=== PATIENT | male | born 1950 | race Two or more races ===

== ENCOUNTER 2017-09-18 22:54 | Inpatient (IN) | payer MEDICARE, OTHER ==
[~2017-09-18 22:54] MED LIST: ACID1TAB12 PO; ALBU2.5V38 NEB; ASPI-1169 GT; BISA-79 GT; Blood Sugar Diagnostic IN; CRAN1CAP10 GT; FENO145T45 GT; INSU100V10 SQ; MAGN400O21 PO; METO25TA6 GT; METO5TAB87 GT; MINE3.5O EACHEYE; NA P133E4 RC; NUT.100029 GT; PRAV40TA GT
[2017-09-18] MEDS ORDERED: IV NS 0.9% 1,000 ML BAG IV ONE (23:00)
[2017-09-19] MEDS ORDERED: ACETAMINOPHEN 650 MG/SUPP.RECT RC ONE ×2 (00:18)
[2017-09-19] MEDS ORDERED: AZTREONAM 1 G in IV NS 0.9% 100 ML IV ONE (00:30)
[2017-09-19] MEDS ORDERED: LEVOFLOXACIN 750 MG /D5W 150ML PIGGYBACK IV ONE (00:30)
[2017-09-19] MEDS ORDERED: IV NS 0.9% 1,000 ML BAG IV ONE ×2 (00:30→01:00)
[2017-09-19] MEDS ORDERED: IV NS 0.9% 500 ML BAG IV ONE (00:30)
[2017-09-19] MEDS ORDERED: LEVOFLOXACIN 750 MG /D5W 150ML 150 ML IV ONE (00:37)
[2017-09-19] MEDS ORDERED: AZTREONAM 1 G VIAL ONE (00:37)
[2017-09-19] MEDS ORDERED: VANCOMYCIN 1 GM VIAL ONE (01:53)
[2017-09-19] MEDS ORDERED: VANCOMYCIN 1 GM in IV D5W 250 ML IV ONE (02:00)
[2017-09-19] MEDS ORDERED: LEVOFLOXACIN 750 MG /D5W 150ML 150 ML IV SCH (03:00)
[2017-09-19] MEDS: IV NS 0.9% 1,000 ML IV PRN ×2 (03:38→13:09)
[2017-09-19] MEDS ORDERED: GLYTROL 1,000 ML BAG GT PRN (04:30)
[2017-09-19] MEDS ORDERED: PIPERACILLIN /TAZOBACTAM 3.375 G VIAL IV ONE (05:07)
[2017-09-19] MEDS: BLOOD SUGAR DIAGNOSTIC 1 EACH STRIP IN SCH ×4 (06:29→23:36)
[2017-09-19] MEDS: PIPERACILLIN /TAZOBACTAM 3.375 G in IV D5W 50 ML IV SCH ×3 (06:31→17:29)
[2017-09-19] MEDS: INSULIN REGULAR, HUMAN 100 UNIT/ML 3 ML VIAL SQ PRN ×3 (06:45→17:27)
[2017-09-19] MEDS ORDERED: FEE PK DOSING 1 MIN EA MC ONE (08:24)
[2017-09-19] MEDS ORDERED: Z GUARD REMEDY 2 OZ OINT TP PRN (08:30)
[2017-09-19] MEDS ORDERED: METF-440 GT (08:41)
[2017-09-19] MEDS ORDERED: MAGN400O6 GT (08:41)
[2017-09-19] MEDS ORDERED: ATOR10TA GT (08:41)
[2017-09-19] MEDS ORDERED: DOCU50LI GT (08:41)
[2017-09-19] MEDS ORDERED: IPRA0.2S9 IH ×2 (08:41)
[2017-09-19] MEDS ORDERED: ACET160S GT ×2 (08:41)
[2017-09-19] MEDS ORDERED: BISA10SU8 RC (08:41)
[2017-09-19] MEDS ORDERED: ALBU2.5V38 IH (08:41)
[2017-09-19] MEDS ORDERED: SODI100037 GT (08:42)
[2017-09-19] MEDS ORDERED: INSU300I SQ (08:42)
[2017-09-19] MEDS: PANTOPRAZOLE 40 MG VIAL IV SCH (08:58)
[2017-09-19] MEDS: Z GUARD REMEDY 2 OZ OINT TP SCH (08:59)
[2017-09-19] MEDS ORDERED: BISACODYL SUPP (10 MG) 10 MG/SUPP.RECT SUPP.RECT RC PRN (11:00)
[2017-09-19] MEDS ORDERED: ACETAMINOPHEN 650 MG/20.3 ML UDC GT PRN (11:00)
[2017-09-19] MEDS ORDERED: IPRATROPIUM NEB FS 0.5 MG/2.5 ML AMPUL.NEB IH PRN (11:00)
[2017-09-19] MEDS ORDERED: ONDANSETRON HCL/PF 4 MG/2 ML VIAL IV PRN (11:00)
[2017-09-19] MEDS ORDERED: MAGNESIUM HYDROXIDE 30 ML UDC GT PRN (11:00)
[2017-09-19] MEDS ORDERED: NA PHOS,M-B/NA PHOS,DI-BA 1 EA ENEMA RC PRN (11:00)
[2017-09-19] MEDS: CLOTRIMAZOLE 1% 15 GM TUBE TP SCH ×2 (12:25→16:36)
[2017-09-19] MEDS: SODIUM CHLORIDE 1000 MG TABLET.SOL GT SCH ×2 (12:31→16:24)
[2017-09-19] MEDS: METFORMIN 500 MG TABLET GT SCH ×2 (12:31→21:51)
[2017-09-19] MEDS ORDERED: ALBUTEROL FS 2.5 MG/3 ML VIAL.NEB NEB PRN (13:30)
[2017-09-19] MEDS: ALBUTEROL FS 2.5 MG/3 ML VIAL.NEB NEB SCH ×2 (13:39→20:03)
[2017-09-19] MEDS: IPRATROPIUM NEB FS 0.5 MG/2.5 ML AMPUL.NEB IH SCH ×2 (13:39→20:03)
[2017-09-19] MEDS: VANCOMYCIN 0.75 GM in IV D5W 250 ML IV SCH (15:10)
[2017-09-19] MEDS: ACETAMINOPHEN 650 MG/20.3 ML UDC GT PRN (15:15)
[2017-09-19] MEDS: METOPROLOL TARTRATE 25 MG TABLET GT SCH (16:24)
[2017-09-19] MEDS ORDERED: LEVETIRACETAM (500MG) 1,000 MG in IV NS 0.9% 100 ML IV ONE (19:30)
[2017-09-19] MEDS ORDERED: LEVETIRACETAM (500MG) 500 MG in IV NS 0.9% 100 ML IV SCH (21:00)
[2017-09-19] MEDS: ATORVASTATIN 10 MG TABLET GT SCH (21:52)
[2017-09-19] MEDS: LANOLIN/MIN OIL/PETROLAT,WHT 3.5 GM TUBE EACHEYE SCH (22:00)
[2017-09-19] MEDS: LORAZEPAM INJ 2 MG/ML VIAL IV PRN (23:21)
[2017-09-20] MEDS: PIPERACILLIN /TAZOBACTAM 3.375 G in IV D5W 50 ML IV SCH ×5 (00:01→23:41)
[2017-09-20] MEDS: INSULIN REGULAR, HUMAN 100 UNIT/ML 3 ML VIAL SQ PRN ×3 (00:04→17:42)
[2017-09-20] MEDS ORDERED: LEVOFLOXACIN 750 MG /D5W 150ML 150 ML IV SCH (01:00)
[2017-09-20] MEDS: ALBUTEROL FS 2.5 MG/3 ML VIAL.NEB NEB SCH ×5 (01:18→19:51)
[2017-09-20] MEDS: IPRATROPIUM NEB FS 0.5 MG/2.5 ML AMPUL.NEB IH SCH ×4 (01:19→19:51)
[2017-09-20] MEDS: LEVOFLOXACIN 750 MG /D5W 150ML 750 MG in PREMIX 1 EA IV SCH (01:34)
[2017-09-20] MEDS: ACETAMINOPHEN 650 MG/20.3 ML UDC GT PRN (02:41)
[2017-09-20] MEDS: LORAZEPAM INJ 2 MG/ML VIAL IV PRN (03:34)
[2017-09-20] MEDS: VANCOMYCIN 0.75 GM in IV D5W 250 ML IV SCH ×2 (03:43→15:14)
[2017-09-20] MEDS: METFORMIN 500 MG TABLET GT SCH ×3 (05:03→21:13)
[2017-09-20] MEDS: BLOOD SUGAR DIAGNOSTIC 1 EACH STRIP IN SCH ×4 (05:19→23:59)
[2017-09-20] MEDS: IV NS 0.9% 1,000 ML IV PRN (05:42)
[2017-09-20] MEDS: GLYTROL 1,000 ML BAG GT PRN (06:00)
[2017-09-20] MEDS ORDERED: LEVETIRACETAM (500MG) 500 MG in IV NS 0.9% 100 ML IV SCH (09:00)
[2017-09-20] MEDS: DOCUSATE SODIUM LIQ 100 MG/10 ML UDC GT SCH (09:09)
[2017-09-20] MEDS: METOPROLOL TARTRATE 25 MG TABLET GT SCH ×2 (09:09→17:28)
[2017-09-20] MEDS: PANTOPRAZOLE 40 MG VIAL IV SCH (09:09)
[2017-09-20] MEDS: SODIUM CHLORIDE 1000 MG TABLET.SOL GT SCH ×3 (09:09→17:27)
[2017-09-20] MEDS: Z GUARD REMEDY 2 OZ OINT TP SCH (09:10)
[2017-09-20] MEDS: INSULIN GLARGINE, 100 UNIT/ML CARTRIDGE SQ SCH (09:13)
[2017-09-20] MEDS: CLOTRIMAZOLE 1% 15 GM TUBE TP SCH ×2 (09:15→17:28)
[2017-09-20] MEDS ORDERED: VANCOMYCIN 1 GM in IV D5W 250 ML IV SCH (16:00)
[2017-09-20] MEDS: LEVETIRACETAM (500MG) 1,000 MG in IV NS 0.9% 100 ML IV SCH (21:07)
[2017-09-20] MEDS: LANOLIN/MIN OIL/PETROLAT,WHT 3.5 GM TUBE EACHEYE SCH (21:14)
[2017-09-20] MEDS: ATORVASTATIN 10 MG TABLET GT SCH (21:15)
[2017-09-21] MEDS: INSULIN REGULAR, HUMAN 100 UNIT/ML 3 ML VIAL SQ PRN ×3 (00:04→17:43)
[2017-09-21] MEDS: IPRATROPIUM NEB FS 0.5 MG/2.5 ML AMPUL.NEB IH SCH ×4 (00:39→19:29)
[2017-09-21] MEDS: ALBUTEROL FS 2.5 MG/3 ML VIAL.NEB NEB SCH ×4 (00:39→19:31)
[2017-09-21] MEDS: LEVOFLOXACIN 750 MG /D5W 150ML 750 MG in PREMIX 1 EA IV SCH (01:18)
[2017-09-21] MEDS: VANCOMYCIN 1 GM in IV D5W 250 ML IV SCH ×2 (02:56→15:24)
[2017-09-21] MEDS: LORAZEPAM INJ 2 MG/ML VIAL IV PRN ×2 (03:29→06:51)
[2017-09-21] MEDS: METFORMIN 500 MG TABLET GT SCH ×3 (04:15→21:56)
[2017-09-21] MEDS: PIPERACILLIN /TAZOBACTAM 3.375 G in IV D5W 50 ML IV SCH ×4 (05:28→23:55)
[2017-09-21] MEDS: BLOOD SUGAR DIAGNOSTIC 1 EACH STRIP IN SCH ×4 (06:00→23:55)
[2017-09-21] MEDS: PANTOPRAZOLE 40 MG VIAL IV SCH (09:02)
[2017-09-21] MEDS: SODIUM CHLORIDE 1000 MG TABLET.SOL GT SCH ×3 (09:02→17:34)
[2017-09-21] MEDS: DOCUSATE SODIUM LIQ 100 MG/10 ML UDC GT SCH (09:03)
[2017-09-21] MEDS: LEVETIRACETAM (500MG) 1,000 MG in IV NS 0.9% 100 ML IV SCH ×2 (09:03→20:39)
[2017-09-21] MEDS: METOPROLOL TARTRATE 25 MG TABLET GT SCH ×2 (09:03→17:34)
[2017-09-21] MEDS: INSULIN GLARGINE, 100 UNIT/ML CARTRIDGE SQ SCH (09:04)
[2017-09-21] MEDS: Z GUARD REMEDY 2 OZ OINT TP SCH (09:05)
[2017-09-21] MEDS: CLOTRIMAZOLE 1% 15 GM TUBE TP SCH ×2 (09:06→17:35)
[2017-09-21] MEDS: GLYTROL 1,000 ML BAG GT PRN (12:01)
[2017-09-21] MEDS: LACTOBACILLUS RHAMNOSUS GG 1 EACH CAP.SPRINK GT SCH (17:34)
[2017-09-21] MEDS: ACETAMINOPHEN 650 MG/20.3 ML UDC GT PRN (20:39)
[2017-09-21] MEDS: LANOLIN/MIN OIL/PETROLAT,WHT 3.5 GM TUBE EACHEYE SCH (21:52)
[2017-09-21] MEDS: ATORVASTATIN 10 MG TABLET GT SCH (21:52)
[2017-09-22] MEDS: ALBUTEROL FS 2.5 MG/3 ML VIAL.NEB NEB SCH ×4 (00:48→20:11)
[2017-09-22] MEDS: IPRATROPIUM NEB FS 0.5 MG/2.5 ML AMPUL.NEB IH SCH ×5 (00:48→20:11)
[2017-09-22] MEDS: LEVOFLOXACIN 750 MG /D5W 150ML 750 MG in PREMIX 1 EA IV SCH (01:15)
[2017-09-22] MEDS: VANCOMYCIN 1 GM in IV D5W 250 ML IV SCH ×2 (03:02→16:21)
[2017-09-22] MEDS: LORAZEPAM INJ 2 MG/ML VIAL IV PRN ×2 (03:15→20:19)
[2017-09-22] MEDS: PIPERACILLIN /TAZOBACTAM 3.375 G in IV D5W 50 ML IV SCH ×4 (05:41→23:40)
[2017-09-22] MEDS: METFORMIN 500 MG TABLET GT SCH ×3 (05:41→20:05)
[2017-09-22] MEDS: GLYTROL 1,000 ML BAG GT PRN (07:19)
[2017-09-22] MEDS: BLOOD SUGAR DIAGNOSTIC 1 EACH STRIP IN SCH ×4 (07:19→23:40)
[2017-09-22] MEDS: INSULIN REGULAR, HUMAN 100 UNIT/ML 3 ML VIAL SQ PRN (07:20)
[2017-09-22] MEDS: LACTOBACILLUS RHAMNOSUS GG 1 EACH CAP.SPRINK GT SCH ×2 (08:58→16:49)
[2017-09-22] MEDS: DOCUSATE SODIUM LIQ 100 MG/10 ML UDC GT SCH (08:58)
[2017-09-22] MEDS: PANTOPRAZOLE 40 MG VIAL IV SCH (08:59)
[2017-09-22] MEDS: SODIUM CHLORIDE 1000 MG TABLET.SOL GT SCH ×3 (08:59→16:49)
[2017-09-22] MEDS: METOPROLOL TARTRATE 25 MG TABLET GT SCH ×2 (08:59→16:49)
[2017-09-22] MEDS: CLOTRIMAZOLE 1% 15 GM TUBE TP SCH ×2 (09:01→16:46)
[2017-09-22] MEDS: INSULIN GLARGINE, 100 UNIT/ML CARTRIDGE SQ SCH (09:05)
[2017-09-22] MEDS: Z GUARD REMEDY 2 OZ OINT TP SCH (09:49)
[2017-09-22] MEDS: LEVETIRACETAM (500MG) 1,000 MG in IV NS 0.9% 100 ML IV SCH ×2 (10:50→20:05)
[2017-09-22] MEDS: ACETAMINOPHEN 650 MG/20.3 ML UDC GT PRN (20:05)
[2017-09-22] MEDS: ATORVASTATIN 10 MG TABLET GT SCH (22:08)
[2017-09-22] MEDS: LANOLIN/MIN OIL/PETROLAT,WHT 3.5 GM TUBE EACHEYE SCH (22:08)
[2017-09-23] MEDS: LEVOFLOXACIN 750 MG /D5W 150ML 750 MG in PREMIX 1 EA IV SCH (00:57)
[2017-09-23] MEDS: ALBUTEROL FS 2.5 MG/3 ML VIAL.NEB NEB SCH ×4 (01:14→19:49)
[2017-09-23] MEDS: IPRATROPIUM NEB FS 0.5 MG/2.5 ML AMPUL.NEB IH SCH ×4 (01:14→19:49)
[2017-09-23] MEDS: ACETAMINOPHEN 650 MG/20.3 ML UDC GT PRN ×2 (02:40→09:34)
[2017-09-23] MEDS: VANCOMYCIN 1 GM in IV D5W 250 ML IV SCH ×2 (02:41→15:13)
[2017-09-23] MEDS: METFORMIN 500 MG TABLET GT SCH ×3 (05:08→21:08)
[2017-09-23] MEDS: PIPERACILLIN /TAZOBACTAM 3.375 G in IV D5W 50 ML IV SCH ×4 (05:08→23:40)
[2017-09-23] MEDS: LORAZEPAM INJ 2 MG/ML VIAL IV PRN ×5 (05:11→20:22)
[2017-09-23] MEDS: BLOOD SUGAR DIAGNOSTIC 1 EACH STRIP IN SCH ×4 (05:16→23:40)
[2017-09-23] MEDS: LEVETIRACETAM (500MG) 1,000 MG in IV NS 0.9% 100 ML IV SCH (08:32)
[2017-09-23] MEDS: DOCUSATE SODIUM LIQ 100 MG/10 ML UDC GT SCH (08:34)
[2017-09-23] MEDS: LACTOBACILLUS RHAMNOSUS GG 1 EACH CAP.SPRINK GT SCH ×2 (08:35→16:42)
[2017-09-23] MEDS: PANTOPRAZOLE 40 MG VIAL IV SCH (08:35)
[2017-09-23] MEDS: SODIUM CHLORIDE 1000 MG TABLET.SOL GT SCH ×3 (08:35→16:42)
[2017-09-23] MEDS: METOPROLOL TARTRATE 25 MG TABLET GT SCH ×2 (08:36→16:42)
[2017-09-23] MEDS: INSULIN GLARGINE, 100 UNIT/ML CARTRIDGE SQ SCH (08:37)
[2017-09-23] MEDS: CLOTRIMAZOLE 1% 15 GM TUBE TP SCH ×2 (08:37→16:42)
[2017-09-23] MEDS: Z GUARD REMEDY 2 OZ OINT TP SCH (08:38)
[2017-09-23] MEDS ORDERED: POTASSIUM CHLORIDE 20 MEQ POWDER PACKET NG SCH (10:30)
[2017-09-23] MEDS: GLYTROL 1,000 ML BAG GT PRN (12:27)
[2017-09-23] MEDS: ATORVASTATIN 10 MG TABLET GT SCH (21:08)
[2017-09-23] MEDS: LEVETIRACETAM SOL (5 ML) 100 MG/ML UDC GT SCH (21:08)
[2017-09-23] MEDS: LANOLIN/MIN OIL/PETROLAT,WHT 3.5 GM TUBE EACHEYE SCH (21:10)
[2017-09-23] MEDS: ACETAMINOPHEN 650 MG/20.3 ML UDC NG PRN (23:41)
[2017-09-24] MEDS: LEVOFLOXACIN 750 MG /D5W 150ML 750 MG in PREMIX 1 EA IV SCH (00:49)
[2017-09-24] MEDS: ALBUTEROL FS 2.5 MG/3 ML VIAL.NEB NEB SCH ×4 (01:00→19:29)
[2017-09-24] MEDS: IPRATROPIUM NEB FS 0.5 MG/2.5 ML AMPUL.NEB IH SCH ×4 (01:00→19:29)
[2017-09-24] MEDS: VANCOMYCIN 1 GM in IV D5W 250 ML IV SCH ×2 (03:15→15:14)
[2017-09-24] MEDS: BLOOD SUGAR DIAGNOSTIC 1 EACH STRIP IN SCH ×4 (05:13→23:06)
[2017-09-24] MEDS: METFORMIN 500 MG TABLET GT SCH ×3 (05:13→21:28)
[2017-09-24] MEDS: PIPERACILLIN /TAZOBACTAM 3.375 G in IV D5W 50 ML IV SCH ×4 (05:14→23:03)
[2017-09-24] MEDS: GLYTROL 1,000 ML BAG GT PRN (07:40)
[2017-09-24] MEDS: SODIUM CHLORIDE 1000 MG TABLET.SOL GT SCH ×3 (08:11→17:11)
[2017-09-24] MEDS: LEVETIRACETAM SOL (5 ML) 100 MG/ML UDC GT SCH ×2 (08:11→21:27)
[2017-09-24] MEDS: DOCUSATE SODIUM LIQ 100 MG/10 ML UDC GT SCH (08:11)
[2017-09-24] MEDS: LACTOBACILLUS RHAMNOSUS GG 1 EACH CAP.SPRINK GT SCH ×2 (08:11→17:11)
[2017-09-24] MEDS: METOPROLOL TARTRATE 25 MG TABLET GT SCH ×2 (08:12→17:12)
[2017-09-24] MEDS: Z GUARD REMEDY 2 OZ OINT TP SCH (08:13)
[2017-09-24] MEDS: PANTOPRAZOLE 40 MG VIAL IV SCH (08:13)
[2017-09-24] MEDS: CLOTRIMAZOLE 1% 15 GM TUBE TP SCH ×2 (08:14→17:12)
[2017-09-24] MEDS: INSULIN GLARGINE, 100 UNIT/ML CARTRIDGE SQ SCH (09:00)
[2017-09-24] MEDS ORDERED: POTASSIUM CHLORIDE 20 MEQ POWDER PACKET NG SCH (10:30)
[2017-09-24] MEDS ORDERED: DEXTROSE 50%-WATER 50 ML DISP.SYRIN IVP ONE (12:00)
[2017-09-24] MEDS: ACETAMINOPHEN 650 MG/20.3 ML UDC GT PRN ×2 (12:13→22:36)
[2017-09-24] MEDS: ATORVASTATIN 10 MG TABLET GT SCH (21:26)
[2017-09-24] MEDS: LANOLIN/MIN OIL/PETROLAT,WHT 3.5 GM TUBE EACHEYE SCH (22:37)
[2017-09-25] MEDS: LORAZEPAM INJ 2 MG/ML VIAL IV PRN ×5 (00:05→22:05)
[2017-09-25] MEDS: LEVOFLOXACIN 750 MG /D5W 150ML 750 MG in PREMIX 1 EA IV SCH (00:05)
[2017-09-25] MEDS: IPRATROPIUM NEB FS 0.5 MG/2.5 ML AMPUL.NEB IH SCH ×4 (01:26→19:18)
[2017-09-25] MEDS: ALBUTEROL FS 2.5 MG/3 ML VIAL.NEB NEB SCH ×4 (01:26→19:17)
[2017-09-25] MEDS ORDERED: ACETAMINOPHEN 650 MG/20.3 ML UDC GT ONE (03:00)
[2017-09-25] MEDS ORDERED: IV NS 0.9% 500 ML IV ONE (03:00)
[2017-09-25] MEDS: VANCOMYCIN 1 GM in IV D5W 250 ML IV SCH (03:10)
[2017-09-25] MEDS: IV NS 0.9% 1,000 ML IV PRN ×2 (03:11→11:34)
[2017-09-25] MEDS: METFORMIN 500 MG TABLET GT SCH ×3 (05:16→20:25)
[2017-09-25] MEDS: PIPERACILLIN /TAZOBACTAM 3.375 G in IV D5W 50 ML IV SCH ×2 (05:16→12:12)
[2017-09-25] MEDS: BLOOD SUGAR DIAGNOSTIC 1 EACH STRIP IN SCH ×4 (05:26→23:42)
[2017-09-25] MEDS: SODIUM CHLORIDE 1000 MG TABLET.SOL GT SCH ×3 (08:30→17:09)
[2017-09-25] MEDS: PANTOPRAZOLE 40 MG VIAL IV SCH (08:30)
[2017-09-25] MEDS: LACTOBACILLUS RHAMNOSUS GG 1 EACH CAP.SPRINK GT SCH ×2 (08:30→17:09)
[2017-09-25] MEDS: DOCUSATE SODIUM LIQ 100 MG/10 ML UDC GT SCH (08:30)
[2017-09-25] MEDS: LEVETIRACETAM SOL (5 ML) 100 MG/ML UDC GT SCH ×2 (08:30→20:25)
[2017-09-25] MEDS: Z GUARD REMEDY 2 OZ OINT TP SCH (08:41)
[2017-09-25] MEDS: CLOTRIMAZOLE 1% 15 GM TUBE TP SCH ×2 (08:41→17:06)
[2017-09-25] MEDS: INSULIN GLARGINE, 100 UNIT/ML CARTRIDGE SQ SCH (08:41)
[2017-09-25] MEDS: METOPROLOL TARTRATE 25 MG TABLET GT SCH ×2 (08:42→17:00)
[2017-09-25] MEDS ORDERED: LORAZEPAM INJ 2 MG/ML VIAL IV ONE (09:00)
[2017-09-25] MEDS ORDERED: phenytoin SODIUM IV 1,000 MG in IV NS 0.9% 100 ML IV ONE (09:30)
[2017-09-25] MEDS: ACETAMINOPHEN 650 MG/20.3 ML UDC GT PRN (11:48)
[2017-09-25] MEDS ORDERED: PHENYTOIN SODIUM IV 50 MG/ML VIAL IV SCH ×2 (13:00→13:30)
[2017-09-25] MEDS: phenytoin SODIUM IV 1,000 MG in IV NS 0.9% 100 ML IV SCH ×2 (13:59→21:11)
[2017-09-25] MEDS: GLUCERNA 1.2 1,000 ML BOTTLE GT PRN (15:16)
[2017-09-25] MEDS ORDERED: DIATR MEGLU/DIATRIZOATE SODIUM 30 ML BOTTLE (GASTROGRAPHIN) ONE (18:07)
[2017-09-25] MEDS: ATORVASTATIN 10 MG TABLET GT SCH (21:05)
[2017-09-25] MEDS: LANOLIN/MIN OIL/PETROLAT,WHT 3.5 GM TUBE EACHEYE SCH (21:05)
[2017-09-26] MEDS: LORAZEPAM INJ 2 MG/ML VIAL IV PRN ×2 (00:50→02:55)
[2017-09-26] MEDS: ALBUTEROL FS 2.5 MG/3 ML VIAL.NEB NEB SCH ×4 (01:04→19:46)
[2017-09-26] MEDS: IPRATROPIUM NEB FS 0.5 MG/2.5 ML AMPUL.NEB IH SCH ×4 (01:04→19:43)
[2017-09-26] MEDS: phenytoin SODIUM IV 1,000 MG in IV NS 0.9% 100 ML IV SCH (05:07)
[2017-09-26] MEDS: METFORMIN 500 MG TABLET GT SCH ×3 (05:07→21:19)
[2017-09-26] MEDS: IV NS 0.9% 1,000 ML IV PRN ×2 (05:07→18:28)
[2017-09-26] MEDS: BLOOD SUGAR DIAGNOSTIC 1 EACH STRIP IN SCH ×4 (05:10→23:31)
[2017-09-26] MEDS: INSULIN REGULAR, HUMAN 100 UNIT/ML 3 ML VIAL SQ PRN ×2 (05:23→12:25)
[2017-09-26] MEDS: METOPROLOL TARTRATE 25 MG TABLET GT SCH ×2 (08:10→17:00)
[2017-09-26] MEDS: LEVETIRACETAM SOL (5 ML) 100 MG/ML UDC GT SCH ×2 (08:10→21:19)
[2017-09-26] MEDS: DOCUSATE SODIUM LIQ 100 MG/10 ML UDC GT SCH (08:10)
[2017-09-26] MEDS: SODIUM CHLORIDE 1000 MG TABLET.SOL GT SCH ×3 (08:10→17:10)
[2017-09-26] MEDS: LACTOBACILLUS RHAMNOSUS GG 1 EACH CAP.SPRINK GT SCH ×2 (08:10→17:10)
[2017-09-26] MEDS: PANTOPRAZOLE 40 MG VIAL IV SCH (08:10)
[2017-09-26] MEDS: Z GUARD REMEDY 2 OZ OINT TP SCH (08:11)
[2017-09-26] MEDS: CLOTRIMAZOLE 1% 15 GM TUBE TP SCH ×2 (08:11→17:10)
[2017-09-26] MEDS: INSULIN GLARGINE, 100 UNIT/ML CARTRIDGE SQ SCH (08:21)
[2017-09-26] MEDS: GLUCERNA 1.2 1,000 ML BOTTLE GT PRN (15:07)
[2017-09-26] MEDS ORDERED: DIATR MEGLU/DIATRIZOATE SODIUM 30 ML BOTTLE (GASTROGRAPHIN) ONE (17:59)
[2017-09-26] MEDS: LANOLIN/MIN OIL/PETROLAT,WHT 3.5 GM TUBE EACHEYE SCH (21:19)
[2017-09-26] MEDS: ATORVASTATIN 10 MG TABLET GT SCH (21:19)
[2017-09-27] MEDS: IPRATROPIUM NEB FS 0.5 MG/2.5 ML AMPUL.NEB IH SCH ×4 (02:02→19:56)
[2017-09-27] MEDS: ALBUTEROL FS 2.5 MG/3 ML VIAL.NEB NEB SCH ×4 (02:02→19:56)
[2017-09-27] MEDS: BLOOD SUGAR DIAGNOSTIC 1 EACH STRIP IN SCH ×4 (05:11→23:32)
[2017-09-27] MEDS: METFORMIN 500 MG TABLET GT SCH ×3 (05:11→21:59)
[2017-09-27] MEDS: INSULIN REGULAR, HUMAN 100 UNIT/ML 3 ML VIAL SQ PRN (05:14)
[2017-09-27] MEDS: PANTOPRAZOLE 40 MG VIAL IV SCH (09:11)
[2017-09-27] MEDS: LACTOBACILLUS RHAMNOSUS GG 1 EACH CAP.SPRINK GT SCH ×2 (09:11→16:19)
[2017-09-27] MEDS: DOCUSATE SODIUM LIQ 100 MG/10 ML UDC GT SCH (09:11)
[2017-09-27] MEDS: SODIUM CHLORIDE 1000 MG TABLET.SOL GT SCH ×3 (09:11→16:19)
[2017-09-27] MEDS: METOPROLOL TARTRATE 25 MG TABLET GT SCH ×2 (09:11→16:20)
[2017-09-27] MEDS: LEVETIRACETAM SOL (5 ML) 100 MG/ML UDC GT SCH ×2 (09:12→21:59)
[2017-09-27] MEDS: INSULIN GLARGINE, 100 UNIT/ML CARTRIDGE SQ SCH (09:13)
[2017-09-27] MEDS: Z GUARD REMEDY 2 OZ OINT TP SCH (09:14)
[2017-09-27] MEDS: IV NS 0.9% 1,000 ML IV PRN ×2 (09:25→22:05)
[2017-09-27] MEDS: GLUCERNA 1.2 1,000 ML BOTTLE GT PRN (12:16)
[2017-09-27] MEDS: CLOTRIMAZOLE 1% 15 GM TUBE TP SCH ×2 (12:18→16:19)
[2017-09-27] MEDS: NEOMY SULF/BACITRAC ZN/POLY 15 GM TUBE TP SCH ×2 (15:43→22:00)
[2017-09-27] MEDS: LANOLIN/MIN OIL/PETROLAT,WHT 3.5 GM TUBE EACHEYE SCH (22:00)
[2017-09-27] MEDS: ATORVASTATIN 10 MG TABLET GT SCH (22:01)
[2017-09-27] MEDS: SILVER SULFADIAZINE CREAM 25 GM TUBE TP SCH (22:03)
[2017-09-28] MEDS: IPRATROPIUM NEB FS 0.5 MG/2.5 ML AMPUL.NEB IH SCH ×4 (01:23→20:35)
[2017-09-28] MEDS: ALBUTEROL FS 2.5 MG/3 ML VIAL.NEB NEB SCH ×4 (01:23→20:35)
[2017-09-28] MEDS: GLUCERNA 1.2 1,000 ML BOTTLE GT PRN (04:35)
[2017-09-28] MEDS: METFORMIN 500 MG TABLET GT SCH ×3 (04:35→21:21)
[2017-09-28] MEDS: BLOOD SUGAR DIAGNOSTIC 1 EACH STRIP IN SCH ×4 (05:05→23:19)
[2017-09-28] MEDS: METOPROLOL TARTRATE 25 MG TABLET GT SCH ×2 (08:54→16:53)
[2017-09-28] MEDS: SODIUM CHLORIDE 1000 MG TABLET.SOL GT SCH ×3 (08:54→16:52)
[2017-09-28] MEDS: PANTOPRAZOLE 40 MG VIAL IV SCH (08:55)
[2017-09-28] MEDS: LEVETIRACETAM SOL (5 ML) 100 MG/ML UDC GT SCH ×2 (08:55→21:21)
[2017-09-28] MEDS: DOCUSATE SODIUM LIQ 100 MG/10 ML UDC GT SCH (08:55)
[2017-09-28] MEDS: LACTOBACILLUS RHAMNOSUS GG 1 EACH CAP.SPRINK GT SCH ×2 (08:55→16:52)
[2017-09-28] MEDS: SILVER SULFADIAZINE CREAM 25 GM TUBE TP SCH (08:56)
[2017-09-28] MEDS: NEOMY SULF/BACITRAC ZN/POLY 15 GM TUBE TP SCH ×2 (08:56→21:25)
[2017-09-28] MEDS: CLOTRIMAZOLE 1% 15 GM TUBE TP SCH ×2 (08:56→17:22)
[2017-09-28] MEDS: Z GUARD REMEDY 2 OZ OINT TP SCH (08:57)
[2017-09-28] MEDS: INSULIN GLARGINE, 100 UNIT/ML CARTRIDGE SQ SCH ×2 (08:58→22:00)
[2017-09-28] MEDS: IV NS 0.9% 1,000 ML IV PRN (12:31)
[2017-09-28] MEDS: LORAZEPAM INJ 2 MG/ML VIAL IV PRN (16:53)
[2017-09-28] MEDS: DEXTROSE 50%-WATER 50 ML DISP.SYRIN IV PRN (17:04)
[2017-09-28] MEDS: ATORVASTATIN 10 MG TABLET GT SCH (21:22)
[2017-09-28] MEDS: LANOLIN/MIN OIL/PETROLAT,WHT 3.5 GM TUBE EACHEYE SCH (21:23)
[2017-09-29] MEDS: IPRATROPIUM NEB FS 0.5 MG/2.5 ML AMPUL.NEB IH SCH ×4 (01:23→20:12)
[2017-09-29] MEDS: ALBUTEROL FS 2.5 MG/3 ML VIAL.NEB NEB SCH ×4 (01:24→20:12)
[2017-09-29] MEDS: GLUCERNA 1.2 1,000 ML BOTTLE GT PRN ×2 (04:14→23:47)
[2017-09-29] MEDS: METFORMIN 500 MG TABLET GT SCH ×3 (04:14→22:09)
[2017-09-29] MEDS: IV NS 0.9% 1,000 ML IV PRN ×2 (04:14→17:56)
[2017-09-29] MEDS: BLOOD SUGAR DIAGNOSTIC 1 EACH STRIP IN SCH ×3 (05:08→17:58)
[2017-09-29] MEDS: DEXTROSE 50%-WATER 50 ML DISP.SYRIN IV PRN (05:14)
[2017-09-29] MEDS: LORAZEPAM INJ 2 MG/ML VIAL IV PRN ×2 (06:28→09:38)
[2017-09-29] MEDS: DOCUSATE SODIUM LIQ 100 MG/10 ML UDC GT SCH (09:00)
[2017-09-29] MEDS: SILVER SULFADIAZINE CREAM 25 GM TUBE TP SCH (09:17)
[2017-09-29] MEDS: Z GUARD REMEDY 2 OZ OINT TP SCH (09:17)
[2017-09-29] MEDS: CLOTRIMAZOLE 1% 15 GM TUBE TP SCH ×2 (09:17→17:58)
[2017-09-29] MEDS: LEVETIRACETAM SOL (5 ML) 100 MG/ML UDC GT SCH ×2 (09:18→21:56)
[2017-09-29] MEDS: NEOMY SULF/BACITRAC ZN/POLY 15 GM TUBE TP SCH ×2 (09:18→21:55)
[2017-09-29] MEDS: ACETAMINOPHEN 650 MG/20.3 ML UDC NG PRN (09:18)
[2017-09-29] MEDS: LACTOBACILLUS RHAMNOSUS GG 1 EACH CAP.SPRINK GT SCH ×2 (09:18→17:58)
[2017-09-29] MEDS: PANTOPRAZOLE 40 MG VIAL IV SCH (09:18)
[2017-09-29] MEDS: SODIUM CHLORIDE 1000 MG TABLET.SOL GT SCH ×3 (09:19→17:58)
[2017-09-29] MEDS: METOPROLOL TARTRATE 25 MG TABLET GT SCH ×2 (09:19→17:58)
[2017-09-29] MEDS: PIPERACILLIN /TAZOBACTAM 3.375 G in IV D5W 50 ML IV SCH ×3 (14:23→23:45)
[2017-09-29] MEDS: LANOLIN/MIN OIL/PETROLAT,WHT 3.5 GM TUBE EACHEYE SCH (21:56)
[2017-09-29] MEDS: ATORVASTATIN 10 MG TABLET GT SCH (21:56)
[2017-09-29] MEDS: INSULIN GLARGINE, 100 UNIT/ML CARTRIDGE SQ SCH (22:00)
[2017-09-30] MEDS: BLOOD SUGAR DIAGNOSTIC 1 EACH STRIP IN SCH ×4 (00:01→17:06)
[2017-09-30] MEDS: INSULIN REGULAR, HUMAN 100 UNIT/ML 3 ML VIAL SQ PRN ×3 (00:13→11:47)
[2017-09-30] MEDS: IPRATROPIUM NEB FS 0.5 MG/2.5 ML AMPUL.NEB IH SCH ×4 (01:33→19:21)
[2017-09-30] MEDS: ALBUTEROL FS 2.5 MG/3 ML VIAL.NEB NEB SCH ×4 (01:33→19:21)
[2017-09-30] MEDS: PIPERACILLIN /TAZOBACTAM 3.375 G in IV D5W 50 ML IV SCH ×3 (05:19→17:06)
[2017-09-30] MEDS: METFORMIN 500 MG TABLET GT SCH ×3 (05:31→21:48)
[2017-09-30] MEDS: IV NS 0.9% 1,000 ML IV PRN (09:10)
[2017-09-30] MEDS: LACTOBACILLUS RHAMNOSUS GG 1 EACH CAP.SPRINK GT SCH ×2 (09:10→16:23)
[2017-09-30] MEDS: PANTOPRAZOLE 40 MG VIAL IV SCH (09:10)
[2017-09-30] MEDS: LEVETIRACETAM SOL (5 ML) 100 MG/ML UDC GT SCH ×2 (09:11→21:48)
[2017-09-30] MEDS: METOPROLOL TARTRATE 25 MG TABLET GT SCH ×2 (09:11→16:25)
[2017-09-30] MEDS: DOCUSATE SODIUM LIQ 100 MG/10 ML UDC GT SCH (09:11)
[2017-09-30] MEDS: SODIUM CHLORIDE 1000 MG TABLET.SOL GT SCH ×3 (09:11→16:23)
[2017-09-30] MEDS: Z GUARD REMEDY 2 OZ OINT TP SCH (09:12)
[2017-09-30] MEDS: NEOMY SULF/BACITRAC ZN/POLY 15 GM TUBE TP SCH ×2 (09:12→21:50)
[2017-09-30] MEDS: SILVER SULFADIAZINE CREAM 25 GM TUBE TP SCH (09:13)
[2017-09-30] MEDS: CLOTRIMAZOLE 1% 15 GM TUBE TP SCH ×2 (09:15→16:24)
[2017-09-30] MEDS: GLUCERNA 1.2 1,000 ML BOTTLE GT PRN (16:23)
[2017-09-30] MEDS: ATORVASTATIN 10 MG TABLET GT SCH (21:48)
[2017-09-30] MEDS: LANOLIN/MIN OIL/PETROLAT,WHT 3.5 GM TUBE EACHEYE SCH (21:50)
[2017-09-30] MEDS: INSULIN GLARGINE, 100 UNIT/ML CARTRIDGE SQ SCH (21:52)
[2017-10-01] MEDS: PIPERACILLIN /TAZOBACTAM 3.375 G in IV D5W 50 ML IV SCH ×5 (00:21→23:57)
[2017-10-01] MEDS: BLOOD SUGAR DIAGNOSTIC 1 EACH STRIP IN SCH ×5 (00:21→23:42)
[2017-10-01] MEDS: IV NS 0.9% 1,000 ML IV PRN (00:21)
[2017-10-01] MEDS: INSULIN REGULAR, HUMAN 100 UNIT/ML 3 ML VIAL SQ PRN ×5 (00:23→23:35)
[2017-10-01] MEDS: IPRATROPIUM NEB FS 0.5 MG/2.5 ML AMPUL.NEB IH SCH ×4 (01:30→19:58)
[2017-10-01] MEDS: ALBUTEROL FS 2.5 MG/3 ML VIAL.NEB NEB SCH ×4 (01:30→19:58)
[2017-10-01] MEDS: ACETAMINOPHEN 650 MG/20.3 ML UDC NG PRN (05:19)
[2017-10-01] MEDS: METFORMIN 500 MG TABLET GT SCH ×3 (05:20→21:39)
[2017-10-01] MEDS: LEVETIRACETAM SOL (5 ML) 100 MG/ML UDC GT SCH ×2 (09:12→21:39)
[2017-10-01] MEDS: METOPROLOL TARTRATE 25 MG TABLET GT SCH ×2 (09:13→18:06)
[2017-10-01] MEDS: SODIUM CHLORIDE 1000 MG TABLET.SOL GT SCH ×3 (09:13→18:04)
[2017-10-01] MEDS: LACTOBACILLUS RHAMNOSUS GG 1 EACH CAP.SPRINK GT SCH ×2 (09:13→18:04)
[2017-10-01] MEDS: PANTOPRAZOLE 40 MG VIAL IV SCH (09:14)
[2017-10-01] MEDS: DOCUSATE SODIUM LIQ 100 MG/10 ML UDC GT SCH (09:14)
[2017-10-01] MEDS: CLOTRIMAZOLE 1% 15 GM TUBE TP SCH ×2 (09:16→18:09)
[2017-10-01] MEDS: Z GUARD REMEDY 2 OZ OINT TP SCH (09:16)
[2017-10-01] MEDS: SILVER SULFADIAZINE CREAM 25 GM TUBE TP SCH (09:16)
[2017-10-01] MEDS: NEOMY SULF/BACITRAC ZN/POLY 15 GM TUBE TP SCH ×2 (09:40→21:42)
[2017-10-01] MEDS: METOCLOPRAMIDE HCL 10 MG/10 ML UDC GT SCH ×2 (12:48→21:39)
[2017-10-01] MEDS: GLUCERNA 1.2 1,000 ML BOTTLE GT PRN (12:49)
[2017-10-01] MEDS ORDERED: IV NS 0.9% 250 ML IV PRN (13:00)
[2017-10-01] MEDS ORDERED: DIATR MEGLU/DIATRIZOATE SODIUM 30 ML BOTTLE (GASTROGRAPHIN) ONE (14:57)
[2017-10-01] MEDS: ATORVASTATIN 10 MG TABLET GT SCH (21:39)
[2017-10-01] MEDS: LANOLIN/MIN OIL/PETROLAT,WHT 3.5 GM TUBE EACHEYE SCH (21:41)
[2017-10-01] MEDS: INSULIN GLARGINE, 100 UNIT/ML CARTRIDGE SQ SCH (22:00)
[2017-10-02] MEDS: ALBUTEROL FS 2.5 MG/3 ML VIAL.NEB NEB SCH ×4 (01:51→20:09)
[2017-10-02] MEDS: IPRATROPIUM NEB FS 0.5 MG/2.5 ML AMPUL.NEB IH SCH ×4 (01:52→20:09)
[2017-10-02] MEDS: METOCLOPRAMIDE HCL 10 MG/10 ML UDC GT SCH ×3 (04:57→22:22)
[2017-10-02] MEDS: PIPERACILLIN /TAZOBACTAM 3.375 G in IV D5W 50 ML IV SCH ×3 (04:57→18:31)
[2017-10-02] MEDS: METFORMIN 500 MG TABLET GT SCH ×3 (04:57→22:22)
[2017-10-02] MEDS: BLOOD SUGAR DIAGNOSTIC 1 EACH STRIP IN SCH ×3 (05:23→17:41)
[2017-10-02] MEDS: INSULIN REGULAR, HUMAN 100 UNIT/ML 3 ML VIAL SQ PRN ×3 (05:26→18:30)
[2017-10-02] MEDS: LEVETIRACETAM SOL (5 ML) 100 MG/ML UDC GT SCH ×2 (09:17→22:22)
[2017-10-02] MEDS: SODIUM CHLORIDE 1000 MG TABLET.SOL GT SCH ×3 (09:17→17:41)
[2017-10-02] MEDS: DOCUSATE SODIUM LIQ 100 MG/10 ML UDC GT SCH (09:17)
[2017-10-02] MEDS: PANTOPRAZOLE 40 MG VIAL IV SCH (09:17)
[2017-10-02] MEDS: LACTOBACILLUS RHAMNOSUS GG 1 EACH CAP.SPRINK GT SCH ×2 (09:17→17:41)
[2017-10-02] MEDS: NEOMY SULF/BACITRAC ZN/POLY 15 GM TUBE TP SCH ×2 (09:18→22:26)
[2017-10-02] MEDS: GLUCERNA 1.2 1,000 ML BOTTLE GT PRN (09:18)
[2017-10-02] MEDS: METOPROLOL TARTRATE 25 MG TABLET GT SCH ×2 (09:18→17:41)
[2017-10-02] MEDS: CLOTRIMAZOLE 1% 15 GM TUBE TP SCH ×2 (09:18→17:42)
[2017-10-02] MEDS: Z GUARD REMEDY 2 OZ OINT TP SCH (09:18)
[2017-10-02] MEDS: SILVER SULFADIAZINE CREAM 25 GM TUBE TP SCH (09:18)
[2017-10-02] MEDS: ACETAMINOPHEN 650 MG/20.3 ML UDC NG PRN (13:37)
[2017-10-02] MEDS ORDERED: FEE PK DOSING 1 MIN EA MC ONE (20:44)
[2017-10-02] MEDS: ATORVASTATIN 10 MG TABLET GT SCH (22:22)
[2017-10-02] MEDS: VANCOMYCIN 1 GM in IV D5W 250 ML IV SCH (22:24)
[2017-10-02] MEDS: LANOLIN/MIN OIL/PETROLAT,WHT 3.5 GM TUBE EACHEYE SCH (22:26)
[2017-10-02] MEDS: INSULIN GLARGINE, 100 UNIT/ML CARTRIDGE SQ SCH (22:27)
[2017-10-03] MEDS: BLOOD SUGAR DIAGNOSTIC 1 EACH STRIP IN SCH ×4 (00:15→17:55)
[2017-10-03] MEDS: INSULIN REGULAR, HUMAN 100 UNIT/ML 3 ML VIAL SQ PRN ×3 (00:17→18:13)
[2017-10-03] MEDS: PIPERACILLIN /TAZOBACTAM 3.375 G in IV D5W 50 ML IV SCH ×4 (00:27→17:56)
[2017-10-03] MEDS: ALBUTEROL FS 2.5 MG/3 ML VIAL.NEB NEB SCH ×5 (00:57→19:52)
[2017-10-03] MEDS: IPRATROPIUM NEB FS 0.5 MG/2.5 ML AMPUL.NEB IH SCH ×4 (00:57→19:52)
[2017-10-03] MEDS: METFORMIN 500 MG TABLET GT SCH ×3 (05:43→21:46)
[2017-10-03] MEDS: METOCLOPRAMIDE HCL 10 MG/10 ML UDC GT SCH ×3 (05:43→21:45)
[2017-10-03] MEDS: VANCOMYCIN 1 GM in IV D5W 250 ML IV SCH ×2 (09:34→21:47)
[2017-10-03] MEDS: LEVETIRACETAM SOL (5 ML) 100 MG/ML UDC GT SCH ×2 (09:34→21:45)
[2017-10-03] MEDS: DOCUSATE SODIUM LIQ 100 MG/10 ML UDC GT SCH (09:34)
[2017-10-03] MEDS: PANTOPRAZOLE 40 MG VIAL IV SCH (09:34)
[2017-10-03] MEDS: METOPROLOL TARTRATE 25 MG TABLET GT SCH ×2 (09:35→17:55)
[2017-10-03] MEDS: SODIUM CHLORIDE 1000 MG TABLET.SOL GT SCH ×3 (09:35→17:52)
[2017-10-03] MEDS: LACTOBACILLUS RHAMNOSUS GG 1 EACH CAP.SPRINK GT SCH ×2 (09:35→17:52)
[2017-10-03] MEDS: SILVER SULFADIAZINE CREAM 25 GM TUBE TP SCH (09:36)
[2017-10-03] MEDS: CLOTRIMAZOLE 1% 15 GM TUBE TP SCH ×2 (09:36→17:55)
[2017-10-03] MEDS: Z GUARD REMEDY 2 OZ OINT TP SCH (09:36)
[2017-10-03] MEDS: NEOMY SULF/BACITRAC ZN/POLY 15 GM TUBE TP SCH ×2 (09:37→22:07)
[2017-10-03] MEDS: LORAZEPAM INJ 2 MG/ML VIAL IV PRN (09:53)
[2017-10-03] MEDS: Magnesium 1GM/D5W 100ML PREMIX 100 ML IV SCH ×2 (13:48→14:31)
[2017-10-03] MEDS ORDERED: Magnesium 1GM/D5W 100ML PREMIX 100 ML IV SCH (18:00)
[2017-10-03] MEDS: PHENYTOIN EXTENDED RELEASE 100 MG CAPSULE PO SCH (21:46)
[2017-10-03] MEDS: ATORVASTATIN 10 MG TABLET GT SCH (21:46)
[2017-10-03] MEDS: LANOLIN/MIN OIL/PETROLAT,WHT 3.5 GM TUBE EACHEYE SCH (22:07)
[2017-10-03] MEDS: INSULIN GLARGINE, 100 UNIT/ML CARTRIDGE SQ SCH (22:10)
[2017-10-04] MEDS: BLOOD SUGAR DIAGNOSTIC 1 EACH STRIP IN SCH ×5 (00:23→23:59)
[2017-10-04] MEDS: PIPERACILLIN /TAZOBACTAM 3.375 G in IV D5W 50 ML IV SCH ×5 (00:23→23:59)
[2017-10-04] MEDS: INSULIN REGULAR, HUMAN 100 UNIT/ML 3 ML VIAL SQ PRN ×4 (00:47→12:32)
[2017-10-04] MEDS: IPRATROPIUM NEB FS 0.5 MG/2.5 ML AMPUL.NEB IH SCH ×4 (01:50→20:11)
[2017-10-04] MEDS: ALBUTEROL FS 2.5 MG/3 ML VIAL.NEB NEB SCH ×4 (01:50→20:11)
[2017-10-04] MEDS: PHENYTOIN EXTENDED RELEASE 100 MG CAPSULE PO SCH ×3 (05:34→21:56)
[2017-10-04] MEDS: METFORMIN 500 MG TABLET GT SCH ×3 (05:34→21:56)
[2017-10-04] MEDS: GLUCERNA 1.2 1,000 ML BOTTLE GT PRN (05:34)
[2017-10-04] MEDS: METOCLOPRAMIDE HCL 10 MG/10 ML UDC GT SCH ×3 (05:35→21:55)
[2017-10-04] MEDS: LACTOBACILLUS RHAMNOSUS GG 1 EACH CAP.SPRINK GT SCH ×2 (08:25→16:29)
[2017-10-04] MEDS: LEVETIRACETAM SOL (5 ML) 100 MG/ML UDC GT SCH ×2 (08:25→21:55)
[2017-10-04] MEDS: DOCUSATE SODIUM LIQ 100 MG/10 ML UDC GT SCH (08:25)
[2017-10-04] MEDS: PANTOPRAZOLE 40 MG VIAL IV SCH (08:26)
[2017-10-04] MEDS: METOPROLOL TARTRATE 25 MG TABLET GT SCH ×2 (08:26→16:29)
[2017-10-04] MEDS: SODIUM CHLORIDE 1000 MG TABLET.SOL GT SCH ×3 (08:26→16:29)
[2017-10-04] MEDS: VANCOMYCIN 1 GM in IV D5W 250 ML IV SCH (08:27)
[2017-10-04] MEDS: CLOTRIMAZOLE 1% 15 GM TUBE TP SCH ×2 (10:38→16:30)
[2017-10-04] MEDS: NEOMY SULF/BACITRAC ZN/POLY 15 GM TUBE TP SCH ×2 (10:38→21:57)
[2017-10-04] MEDS: SILVER SULFADIAZINE CREAM 25 GM TUBE TP SCH (10:39)
[2017-10-04] MEDS: Z GUARD REMEDY 2 OZ OINT TP SCH (10:39)
[2017-10-04] MEDS: ACETAMINOPHEN 650 MG/20.3 ML UDC NG PRN (16:29)
[2017-10-04] MEDS: ATORVASTATIN 10 MG TABLET GT SCH (21:56)
[2017-10-04] MEDS: LANOLIN/MIN OIL/PETROLAT,WHT 3.5 GM TUBE EACHEYE SCH (21:58)
[2017-10-04] MEDS: INSULIN GLARGINE, 100 UNIT/ML CARTRIDGE SQ SCH (22:12)
[2017-10-04] MEDS ORDERED: VANCOMYCIN 1 GM VIAL ONE (22:18)
[2017-10-04] MEDS: VANCOMYCIN 0.75 GM in IV NS 0.9% 250 ML IV SCH (22:27)
[2017-10-05] MEDS: ALBUTEROL FS 2.5 MG/3 ML VIAL.NEB NEB SCH ×4 (01:51→20:00)
[2017-10-05] MEDS: IPRATROPIUM NEB FS 0.5 MG/2.5 ML AMPUL.NEB IH SCH ×4 (01:52→19:58)
[2017-10-05] MEDS: GLUCERNA 1.2 1,000 ML BOTTLE GT PRN ×2 (02:37→21:17)
[2017-10-05] MEDS: PHENYTOIN EXTENDED RELEASE 100 MG CAPSULE PO SCH ×3 (04:14→20:39)
[2017-10-05] MEDS: METOCLOPRAMIDE HCL 10 MG/10 ML UDC GT SCH ×3 (04:14→20:39)
[2017-10-05] MEDS: BLOOD SUGAR DIAGNOSTIC 1 EACH STRIP IN SCH ×3 (05:16→18:20)
[2017-10-05] MEDS: PIPERACILLIN /TAZOBACTAM 3.375 G in IV D5W 50 ML IV SCH ×3 (05:16→18:20)
[2017-10-05] MEDS: METFORMIN 500 MG TABLET GT SCH ×3 (05:18→20:39)
[2017-10-05] MEDS: DOCUSATE SODIUM LIQ 100 MG/10 ML UDC GT SCH (09:14)
[2017-10-05] MEDS: METOPROLOL TARTRATE 25 MG TABLET GT SCH ×2 (09:15→16:43)
[2017-10-05] MEDS: SODIUM CHLORIDE 1000 MG TABLET.SOL GT SCH ×3 (09:15→16:43)
[2017-10-05] MEDS: PANTOPRAZOLE 40 MG VIAL IV SCH (09:15)
[2017-10-05] MEDS: LACTOBACILLUS RHAMNOSUS GG 1 EACH CAP.SPRINK GT SCH ×2 (09:15→16:43)
[2017-10-05] MEDS: LEVETIRACETAM SOL (5 ML) 100 MG/ML UDC GT SCH ×2 (09:15→20:39)
[2017-10-05] MEDS: NEOMY SULF/BACITRAC ZN/POLY 15 GM TUBE TP SCH ×2 (09:16→21:06)
[2017-10-05] MEDS: CLOTRIMAZOLE 1% 15 GM TUBE TP SCH ×2 (09:17→16:44)
[2017-10-05] MEDS: SILVER SULFADIAZINE CREAM 25 GM TUBE TP SCH (09:17)
[2017-10-05] MEDS: Z GUARD REMEDY 2 OZ OINT TP SCH (09:18)
[2017-10-05] MEDS: VANCOMYCIN 0.75 GM in IV NS 0.9% 250 ML IV SCH ×2 (11:23→21:05)
[2017-10-05] MEDS: INSULIN REGULAR, HUMAN 100 UNIT/ML 3 ML VIAL SQ PRN (11:43)
[2017-10-05] MEDS: VANCOMYCIN HCL 125 MG/2.5 ML ORAL.SUSP PO SCH (20:40)
[2017-10-05] MEDS: LANOLIN/MIN OIL/PETROLAT,WHT 3.5 GM TUBE EACHEYE SCH (21:06)
[2017-10-05] MEDS: INSULIN GLARGINE, 100 UNIT/ML CARTRIDGE SQ SCH (21:14)
[2017-10-05] MEDS: ATORVASTATIN 10 MG TABLET GT SCH (21:17)
[2017-10-06] MEDS ORDERED: VANCOMYCIN HCL 125 MG CAPSULE PO SCH
[2017-10-06] MEDS: PIPERACILLIN /TAZOBACTAM 3.375 G in IV D5W 50 ML IV SCH ×5 (00:20→23:01)
[2017-10-06] MEDS: BLOOD SUGAR DIAGNOSTIC 1 EACH STRIP IN SCH ×5 (00:20→23:02)
[2017-10-06] MEDS: VANCOMYCIN HCL 125 MG/2.5 ML ORAL.SUSP PO SCH ×2 (00:20→04:50)
[2017-10-06] MEDS: INSULIN REGULAR, HUMAN 100 UNIT/ML 3 ML VIAL SQ PRN ×4 (00:33→23:06)
[2017-10-06] MEDS: IPRATROPIUM NEB FS 0.5 MG/2.5 ML AMPUL.NEB IH SCH ×4 (01:22→19:35)
[2017-10-06] MEDS: ALBUTEROL FS 2.5 MG/3 ML VIAL.NEB NEB SCH ×4 (01:22→19:35)
[2017-10-06] MEDS: METFORMIN 500 MG TABLET GT SCH ×3 (04:29→21:04)
[2017-10-06] MEDS: METOCLOPRAMIDE HCL 10 MG/10 ML UDC GT SCH ×3 (04:29→21:03)
[2017-10-06] MEDS: PHENYTOIN EXTENDED RELEASE 100 MG CAPSULE PO SCH ×3 (04:29→21:07)
[2017-10-06] MEDS: LACTOBACILLUS RHAMNOSUS GG 1 EACH CAP.SPRINK GT SCH ×2 (08:46→17:12)
[2017-10-06] MEDS: DOCUSATE SODIUM LIQ 100 MG/10 ML UDC GT SCH (08:46)
[2017-10-06] MEDS: VANCOMYCIN 0.75 GM in IV NS 0.9% 250 ML IV SCH (08:47)
[2017-10-06] MEDS: SODIUM CHLORIDE 1000 MG TABLET.SOL GT SCH ×3 (08:47→17:12)
[2017-10-06] MEDS: LEVETIRACETAM SOL (5 ML) 100 MG/ML UDC GT SCH ×2 (08:47→21:04)
[2017-10-06] MEDS: PANTOPRAZOLE 40 MG VIAL IV SCH (08:47)
[2017-10-06] MEDS: METOPROLOL TARTRATE 25 MG TABLET GT SCH ×2 (08:47→17:13)
[2017-10-06] MEDS: NEOMY SULF/BACITRAC ZN/POLY 15 GM TUBE TP SCH ×2 (08:48→21:09)
[2017-10-06] MEDS: SILVER SULFADIAZINE CREAM 25 GM TUBE TP SCH (08:49)
[2017-10-06] MEDS: Z GUARD REMEDY 2 OZ OINT TP SCH (08:49)
[2017-10-06] MEDS: CLOTRIMAZOLE 1% 15 GM TUBE TP SCH ×2 (08:50→17:22)
[2017-10-06] MEDS: Magnesium 1GM/D5W 100ML PREMIX 100 ML IV SCH ×2 (11:42→15:11)
[2017-10-06] MEDS: VANCOMYCIN HCL 125 MG/2.5 ML ORAL.SUSP GT SCH ×2 (17:21→23:06)
[2017-10-06] MEDS: VANCOMYCIN 500 MG in IV D5W 100 ML IV SCH (21:03)
[2017-10-06] MEDS: ATORVASTATIN 10 MG TABLET GT SCH (21:04)
[2017-10-06] MEDS: GLUCERNA 1.2 1,000 ML BOTTLE GT PRN (21:09)
[2017-10-06] MEDS: LANOLIN/MIN OIL/PETROLAT,WHT 3.5 GM TUBE EACHEYE SCH (22:51)
[2017-10-06] MEDS: INSULIN GLARGINE, 100 UNIT/ML CARTRIDGE SQ SCH (22:56)
[2017-10-07] MEDS: ALBUTEROL FS 2.5 MG/3 ML VIAL.NEB NEB SCH ×4 (01:11→19:10)
[2017-10-07] MEDS: IPRATROPIUM NEB FS 0.5 MG/2.5 ML AMPUL.NEB IH SCH ×4 (01:11→19:10)
[2017-10-07] MEDS: ACETAMINOPHEN 650 MG/20.3 ML UDC NG PRN ×2 (01:25→08:44)
[2017-10-07] MEDS: METFORMIN 500 MG TABLET GT SCH ×2 (04:36→14:34)
[2017-10-07] MEDS: METOCLOPRAMIDE HCL 10 MG/10 ML UDC GT SCH ×2 (04:36→14:34)
[2017-10-07] MEDS: PHENYTOIN EXTENDED RELEASE 100 MG CAPSULE PO SCH ×2 (04:36→14:34)
[2017-10-07] MEDS: PIPERACILLIN /TAZOBACTAM 3.375 G in IV D5W 50 ML IV SCH ×3 (05:15→17:41)
[2017-10-07] MEDS: VANCOMYCIN HCL 125 MG/2.5 ML ORAL.SUSP GT SCH ×3 (05:15→17:41)
[2017-10-07] MEDS: BLOOD SUGAR DIAGNOSTIC 1 EACH STRIP IN SCH ×3 (05:39→17:41)
[2017-10-07] MEDS: INSULIN REGULAR, HUMAN 100 UNIT/ML 3 ML VIAL SQ PRN ×2 (05:43→18:18)
[2017-10-07] MEDS: PANTOPRAZOLE 40 MG VIAL IV SCH (08:44)
[2017-10-07] MEDS: SODIUM CHLORIDE 1000 MG TABLET.SOL GT SCH ×3 (08:44→17:40)
[2017-10-07] MEDS: LACTOBACILLUS RHAMNOSUS GG 1 EACH CAP.SPRINK GT SCH ×2 (08:45→17:40)
[2017-10-07] MEDS: LEVETIRACETAM SOL (5 ML) 100 MG/ML UDC GT SCH (08:45)
[2017-10-07] MEDS: METOPROLOL TARTRATE 25 MG TABLET GT SCH ×2 (08:45→17:41)
[2017-10-07] MEDS: Z GUARD REMEDY 2 OZ OINT TP SCH (08:47)
[2017-10-07] MEDS: DOCUSATE SODIUM LIQ 100 MG/10 ML UDC GT SCH (08:47)
[2017-10-07] MEDS: NEOMY SULF/BACITRAC ZN/POLY 15 GM TUBE TP SCH (08:48)
[2017-10-07] MEDS: CLOTRIMAZOLE 1% 15 GM TUBE TP SCH ×2 (08:48→17:41)
[2017-10-07] MEDS: SILVER SULFADIAZINE CREAM 25 GM TUBE TP SCH (08:48)
[2017-10-07] MEDS: VANCOMYCIN 500 MG in IV D5W 100 ML IV SCH (08:58)
[2017-10-07] MEDS: LORAZEPAM INJ 2 MG/ML VIAL IV PRN (14:35)
[2017-10-07] MEDS ORDERED: VANC500V GT (14:41)
[2017-10-07] MEDS ORDERED: CLOT15CR35 TP (14:41)
[2017-10-07] MEDS ORDERED: PIPE3.376 IV (14:41)
[2017-10-07] MEDS ORDERED: PHEN100C4 PO (14:41)
[2017-10-07] MEDS ORDERED: VANC500F2 IV (14:41)
[2017-10-11] MEDS ORDERED: NS 0.9% IV ONE (16:00)
[2017-10-11] MEDS ORDERED: PHENYTOIN SODIUM IV ONE (16:00)
== END 2017-10-07 19:57 | DRG 870 ==
DX: A41.9 Sepsis, unspecified organism (principal); E43 Unspecified severe protein-calorie malnutrition; J18.9 Pneumonia, unspecified organism; Z99.11 Dependence on respirator [ventilator] status; J90 Pleural effusion, not elsewhere classified; Z93.0 Tracheostomy status; J96.11 Chronic respiratory failure with hypoxia; R53.2 Functional quadriplegia; D68.59 Other primary thrombophilia; E87.1 Hypo-osmolality and hyponatremia; J98.11 Atelectasis; L03.116 Cellulitis of left lower limb; K56.7 Ileus, unspecified; R13.10 Dysphagia, unspecified; R65.20 Severe sepsis without septic shock; Z93.1 Gastrostomy status; Z87.820 Personal history of traumatic brain injury; K21.9 Gastro-esophageal reflux disease without esophagitis; E78.5 Hyperlipidemia, unspecified; D63.8 Anemia in other chronic diseases classified elsewhere; Z79.82 Long term (current) use of aspirin; Z79.4 Long term (current) use of insulin; Z79.899 Other long term (current) drug therapy; I25.2 Old myocardial infarction; E11.649 Type 2 diabetes mellitus with hypoglycemia without coma; E11.65 Type 2 diabetes mellitus with hyperglycemia; F09 Unspecified mental disorder due to known physiological condition; Z98.890 Other specified postprocedural states; G40.909 Epilepsy, unspecified, not intractable, without status epilepticus; E87.70 Fluid overload, unspecified; I25.10 Atherosclerotic heart disease of native coronary artery without angina pectoris; N40.0 Benign prostatic hyperplasia without lower urinary tract symptoms; B35.4 Tinea corporis; E83.51 Hypocalcemia; M16.12 Unilateral primary osteoarthritis, left hip; M17.12 Unilateral primary osteoarthritis, left knee

== ENCOUNTER 2017-11-25 08:19 | Inpatient (IN) | payer MEDICARE, OTHER ==
[2017-11-25] VITALS (22 sets, daily range): BP systolic 98–145; BP diastolic 55–83
[~2017-11-25] VITALS: Ht 165.1 cm; Wt 60.8 kg
[~2017-11-25 08:19] MED LIST changes: +ACET160S GT; -ACID1TAB12 PO; +ALBU2.5V38 IH; -ASPI-1169 GT; +ATOR10TA GT; -BISA-79 GT; +BISA10SU8 RC; +CLOT15CR35 TP; -CRAN1CAP10 GT; +DOCU50LI GT; -FENO145T45 GT; -INSU100V10 SQ; +INSU300I SQ; +IPRA0.2S9 IH; -MAGN400O21 PO; +MAGN400O6 GT; +METF500T6 GT; -METO5TAB87 GT; +PHEN100C4 PO; +PIPE3.376 IV; -PRAV40TA GT; +SODI100010 GT; +VANC500F2 IV; +VANC500V GT
--- NOTE | 2017-11-25 08:20 | NUR ---
KRISTINA 86 FROM [facility] FOR RAPID HR 160 AND FEVER 103.5F. CAME IN ON VENT. SKIN IS HOT TO TOUCH. PLACED ON THE MONITOR. DR MARTIN AT BS FOR EVAL. VERBALLY ORDERED TYLENOL 650MG GT.
[2017-11-25] MEDS ORDERED: ACETAMINOPHEN 650 MG/20.3 ML UDC ONE (08:23)
[2017-11-25] MEDS ORDERED: ACETAMINOPHEN 650 MG/20.3 ML UDC GT ONE (08:30)
[2017-11-25] MEDS ORDERED: MEROPENEM 1 G in IV NS 0.9% 100 ML IV ONE (08:30)
[2017-11-25] MEDS ORDERED: IV NS 0.9% 1,000 ML BAG IV ONE (08:30)
[2017-11-25] MEDS ORDERED: VANCOMYCIN 1 GM in IV D5W 250 ML IV ONE (08:30)
--- NOTE | 2017-11-25 08:47 | NUR ---
CALLED HOUSE DAMIAN LAWTON; SHE WILL CALL FOR PICC.
--- NOTE | 2017-11-25 08:50 | NUR ---
TRIPLE LUMEN CENTRAL LINE INSERTED BY DR. MARTIN. LEFT FEMORAL VEIN, POSITIVE BLOOD RETURN, FLUSHING WELL. DRESSING APPLIED. TOLERATED WELL.
[2017-11-25 09:07] LABS: BASOPHILS % (AUTO) 0.4 % (0.0-2.0); HEMATOCRIT 24 % (39-51); LYMPHOCYTES # (AUTO) 0.6 /CMM (0.8-4.8); LYMPHOCYTES % (AUTO) 5.5 % (20.0-44.0); MEAN CORPUSCULAR HEMOGLOBIN 28 PG (26.0-33.0); MEAN CORPUSCULAR HGB CONC 33 g/dl (31.0-36.0); MEAN CORPUSCULAR VOLUME 86 fL (80-96); MONOCYTES # (AUTO) 1.2 /CMM (0.1-1.30); MONOCYTES % (AUTO) 11.1 % (2.0-12.0); PLATELET COUNT (AUTO) 276 /CMM (150-450); RDW COEFFICIENT OF VARIATION 16.2 (11.5-15.0); RED BLOOD CELL COUNT(AUTO) 2.81 MIL/uL (4.5-6.0)
--- NOTE | 2017-11-25 09:10 | NUR ---
16 FR coude sarah catheter inserted per sterile protocol. Immediate output 250ML of urine, yellow and clear.
[2017-11-25 09:18] LABS: CALCIUM, SERUM 8.9 mg/dL (8.5-10.1); CARBON DIOXIDE 27 mmol/L (21-32); CHLORIDE 101 mmol/L (98-107); CREATININE 1.3 mg/dL (0.6-1.3); GLUCOSE 121 mg/dL (74-106); POTASSIUM 3.8 mmol/L (3.5-5.1); SODIUM SERUM 138 mmol/L (136-145); UREA NITROGEN, BLOOD 21 mg/dL (7-18)
[2017-11-25 09:23] LABS: ALANINE AMINOTRANSFERASE 15 U/L (12-78); ALBUMIN 2.6 g/dL (3.4-5.0); ALKALINE PHOSPHATASE 92 U/L (46-116); ASPARTATE AMINOTRANSFERASE 18 U/L (15-37); BILIRUBIN,TOTAL 0.2 mg/dL (0.2-1.0); TOTAL PROTEIN, SERUM 8.5 g/dL (6.4-8.2)
[2017-11-25 09:26] LABS: TROPONIN I < 0.017 ng/mL (0.00-0.056)
[2017-11-25 09:44] LABS: INR 1.04 (0.87-1.13)
--- NOTE | 2017-11-25 09:49 | NUR ---
PAGED EPIC PROSTHETIST IS DR SALOMON
[2017-11-25 10:23] LABS: APPEARANCE,URINE Clear (CLEAR); BILIRUBIN,URINE Negative (NEGATIVE); BLOOD, URINE Moderate Ery/uL (NEGATIVE); COLOR,URINE Yellow (YELLOW); KETONES,URINE Negative (NEGATIVE); LEUKOCYTE ESTERASE ,URINE Negative (NEGATIVE); NITRITE, URINE Negative (NEGATIVE); PROTEIN,URINE >=300 mg/dl (NEGATIVE); UGLUCOSE Negative (NEGATIVE); UROBILINOGEN,URINE 0.2 EU/dL (0.2)
[2017-11-25] MEDS ORDERED: Magnesium 1GM/D5W 100ML PREMIX 100 ML IV ONE (10:37)
[2017-11-25] MEDS: Magnesium 1GM/D5W 100ML PREMIX 100 ML IV SCH ×2 (10:40→11:50)
--- NOTE | 2017-11-25 10:40 | NUR ---
REPORT GIVEN TO TAHIRA GARRIDO FOR CORA UPON ADMISSION.
[2017-11-25 11:04] LABS: BACTERIA,URINE Rare /HPF (None Seen); SQUAMOUS EPITHELIAL CELL,UR Rare /HPF (None Seen)
[2017-11-25] MEDS ORDERED: LEVE100S GT (11:08)
[2017-11-25] MEDS ORDERED: ZINC220T GT (11:08)
[2017-11-25] MEDS ORDERED: INSU100V11 SQ (11:08)
[2017-11-25] MEDS ORDERED: ASCO500T10 GT (11:08)
[2017-11-25] MEDS ORDERED: NUT.237L30 GT (11:08)
[2017-11-25] MEDS ORDERED: MULT-213 PO (11:08)
[2017-11-25] MEDS ORDERED: AMIN30LI2 GT (11:08)
[2017-11-25] MEDS ORDERED: SENN-167 GT (11:08)
[2017-11-25] MEDS ORDERED: LORA1TAB GT (11:08)
--- NOTE | 2017-11-25 11:10 | NUR ---
PATIENT TRANSPORTED TO ICU,256 VIA ACLS PROTOCOL. RNTAHIRA TO PROVIDE CORA. 1 BAG OF MAGNESIUM ENDORSED TO TAHIRA.
--- NOTE | 2017-11-25 11:30 | NUR ---
MULTI SKILLED OPERATOR- INITIAL ADMISSION NOTE RECEIVED PT FROM ER VIA [facility]. PT OBTUNDED. VENT/TRACH DEPENDENT, RESPIRATIONS EVEN AND UNLABORED, NO SOB OR DISTRESS PRESENT. CONNECTED TO BEDSIDE MONITOR, REVEALING SINUS TACHYCARDIA. G-TUBE PRESENT AND CURRENTLY CLAMPED. LEFT FEMORAL TLC INTACT. MULLEN CATHETER DRAINING TO GRAVITY CLEAR, YELLOW URINE. WOUNDS PRESENT. PICTURES TAKEN. WOUND CONSULT PLACED. AWAITING ADMISSION ORDERS. WILL CONTINUE TO MONITOR.
[2017-11-25 11:57] LABS: ABG BASE EXCESS -0.6 mmol/L; ABG OXYGEN SATURATION 95.2 % (92.0-98.5); ABG PCO2 34.7 mmHg (35.0-45.0); ABG PH 7.444 (7.350-7.450); ABG PO2 86.8 mmHg (75.0-100.0); AaDO2 158.5 mmHg; COHb 0.3 % (0.5-1.5); MetHb 1.4 % (0.0-1.5); O2Hb 93.6 % (94.0-97.0); PEEP,BG 5 cm H2O; SITE, ABG Right Radial; VT, ABG 500 mL
[2017-11-25] MEDS ORDERED: GLUCERNA 1.2 1,000 ML BOTTLE GT SCH (12:00)
[2017-11-25] MEDS ORDERED: MAGNESIUM HYDROXIDE 30 ML UDC GT PRN (12:00)
[2017-11-25] MEDS ORDERED: NORMAL SALINE FLUSH 10 ML SYR IV PRN (12:00)
[2017-11-25] MEDS ORDERED: ACETAMINOPHEN 160 MG/5 ML GT PRN (12:00)
[2017-11-25] MEDS ORDERED: ONDANSETRON HCL/PF 4 MG/2 ML VIAL IVP PRN (12:00)
[2017-11-25] MEDS ORDERED: NA PHOS,M-B/NA PHOS,DI-BA 1 EA ENEMA RC PRN (12:00)
[2017-11-25] MEDS ORDERED: BISACODYL SUPP (10 MG) 10 MG/SUPP.RECT SUPP.RECT RC PRN (12:00)
[2017-11-25] MEDS ORDERED: ACETAMINOPHEN 650 MG/SUPP.RECT RC PRN (12:00)
[2017-11-25] MEDS: ENOXAPARIN SODIUM 40 MG/0.4 ML DISP.SYRIN SQ SCH (12:26)
[2017-11-25] MEDS: IV NS 0.9% 1,000 ML IV PRN ×3 (12:26→20:29)
[2017-11-25] MEDS ORDERED: FEE PK DOSING 1 MIN EA MC ONE (12:30)
[2017-11-25] MEDS ORDERED: IV NS 0.9% 1,000 ML BAG IV SCH (12:30)
[2017-11-25] MEDS ORDERED: DEXTROSE 50%-WATER 50 ML DISP.SYRIN IV PRN (12:30)
[2017-11-25] MEDS ORDERED: VANCOMYCIN 1 GM in IV NS 0.9% 250 ML IV SCH (12:30)
[2017-11-25] MEDS ORDERED: IV NS 0.9% 1,000 ML IV PRN (12:30)
[2017-11-25] MEDS ORDERED: NORMAL SALINE FLUSH 10 ML SYR IV SCH (13:00)
[2017-11-25] MEDS: LORAZEPAM 1 MG TABLET GT PRN (13:32)
[2017-11-25 13:33] LABS: THYROID STIMULATING HORMONE 1.806 uIU/mL (0.358-3.74)
[2017-11-25] MEDS: CEFEPIME 1 GM in IV D5W 50 ML IV SCH (14:32)
[2017-11-25] MEDS: METOPROLOL TARTRATE 25 MG TABLET GT SCH (16:49)
[2017-11-25] MEDS: LEVETIRACETAM SOL (5 ML) 100 MG/ML UDC GT SCH (16:50)
[2017-11-25] MEDS: BLOOD SUGAR DIAGNOSTIC 1 EACH STRIP IN SCH ×2 (17:04→23:42)
--- NOTE | 2017-11-25 19:45 | NUR ---
ICU/SPRAYER HAND RECEIVED REPORT FROM DAY SHIFT NURSE, PT IS ALERT TO SELF, PT RESPONDS TO STIMULI. PT IS VENTED TOLERATING CURRENT VENT SETTINGS WITH SATURATION AT 98-100%. PT HAS THICK SECRETIONS, WHICH REQUIRES FREQUENT SUCTIONING. PT IS CURRENTLY ON G/TUBE FEEDING, TOLERATING THE FEEDING. PT HAS MULLEN CATH DRAINING YELLOW URINE. PT HAS A FEW SKIN ISSUES WHICH ARE ADDRESSED ON THE FLOW SHEET, PT WAS TURNED AND REPOSITIONED FOR COMFORT AND CARE.
--- NOTE | 2017-11-25 20:26 | NUR ---
RECEIVED PT TRACH PTX 7 ON VENT. NO RESP DISTRESS. PT TOLERATING VENT SETTINGS. SX'D FOR MOD AMT OF THICK YELLOW SECRETIONS. VENT ALARMS ST AND AUDIBLE. AMBU BAG AT BEDSIDE. VENT PLUGGED INTO RED OUTLET. WILL CONTINUE TO MONITOR. Addendum: 11/25/17 at 2026 by MANJEET DOWNEY RT Amended: Links added.
[2017-11-25] MEDS ORDERED: CEFEPIME 1 GM VIAL IM SCH (21:00)
[2017-11-25] MEDS ORDERED: ATORVASTATIN 10 MG TABLET GT SCH (22:00)
[2017-11-25] MEDS: INSULIN GLARGINE, 100 UNIT/ML CARTRIDGE SQ SCH (22:00)
[2017-11-25] MEDS: SENNOSIDES 8.6 MG TABLET GT SCH (22:14)
[2017-11-25] MEDS: VANCOMYCIN 0.75 GM in IV D5W 250 ML IV SCH (22:16)
--- NOTE | 2017-11-25 22:23 | NUR ---
ICU/GLASS UNLOADING EQUIPMENT TENDER PT'S BLOOD SUGAR IS 79, AT THIS TIME LANTUS 80 UNITS IS BEING HELD DUE TO LOW BLOOD SUGAR. HOWEVER SHOULD THIS SUGAR INCREASE THEN WILL CHANGE THE LANTUS AND GIVE. PT'S BLOOD SUGAR WILL CONTINUED TO BE MONITORED ORDERED BY .
[2017-11-25] MEDS: INSULIN REGULAR, HUMAN 100 UNIT/ML 3 ML VIAL SQ PRN (23:44)
[2017-11-26] VITALS (34 sets, daily range): BP systolic 103–148; BP diastolic 54–83
--- NOTE | 2017-11-26 00:43 | NUR ---
ICU/BREAKER OILER PT'S MIDNIGHT BLOOD SUGAR IS 142, PT WAS COVERED WITH 2 UNITS REGULAR INSULIN. WILL CONTINUE TO MONITOR THIS PT.
--- NOTE | 2017-11-26 01:40 | NUR ---
ICU/DISTRICT DIRECTOR PT GIVEN AM CARE, ALONG WITH ORAL CARE. PT TOLERATED WITH WELL, REMAINS ON CURRENT VENT SETTINGS WITH SATURATION AT 98-100%. PT WAS TURNED AND REPOSITIONED FOR COMFORT AND CARE. WILL CONTINUE TO MONITOR THIS PT. NO ACUTE DISTRESS SEEN AT THIS TIME, PT APPEARS TO BE COMFORTABLE.
[2017-11-26] MEDS: CEFEPIME 1 GM in IV D5W 50 ML IV SCH ×2 (02:10→13:25)
[2017-11-26] MEDS: DOCUSATE SODIUM LIQ 100 MG/10 ML UDC GT SCH (03:54)
--- NOTE | 2017-11-26 03:54 | NUR ---
ICU/COGENERATION TECHNICIAN PT WAS TURNED AND REPOSITIONED FOR COMFORT AND CARE, PT HAD LIQUID STOOL, CANCEL ALL STOOL SOFTENERS.
[2017-11-26 04:45] LABS: BASOPHILS % (AUTO) 0.5 % (0.0-2.0); EOSINOPHILS % (AUTO) 3.2 % (0.0-6.0); LYMPHOCYTES # (AUTO) 0.9 /CMM (0.8-4.8); MEAN CORPUSCULAR HEMOGLOBIN 28 PG (26.0-33.0); MEAN CORPUSCULAR HGB CONC 33 g/dl (31.0-36.0); MEAN CORPUSCULAR VOLUME 86 fL (80-96); MONOCYTES # (AUTO) 0.9 /CMM (0.1-1.30); MONOCYTES % (AUTO) 11.2 % (2.0-12.0); NEUTROPHILS % (AUTO) 74.1 % (43.0-81.0); PLATELET COUNT (AUTO) 227 /CMM (150-450); RED BLOOD CELL COUNT(AUTO) 2.28 MIL/uL (4.5-6.0); WHITE BLOOD COUNT (AUTO) 8.1 K/uL (4.3-11.0)
[2017-11-26] MEDS: IV NS 0.9% 1,000 ML IV PRN (04:51)
[2017-11-26] MEDS: BLOOD SUGAR DIAGNOSTIC 1 EACH STRIP IN SCH ×4 (04:51→23:35)
[2017-11-26 04:57] LABS: HEMOGLOBIN 6.5 g/dL (13.5-17.5)
[2017-11-26 04:58] LABS: HEMATOCRIT 20 % (39-51)
--- NOTE | 2017-11-26 05:00 | NUR ---
ICU/ELIGIBILITY AND OCCUPANCY INTERVIEWER CRITICAL LAB VALUES OF LOW H/H 11/21. PLACED ORDER FOR CBC STAT FROM ARM.
[2017-11-26 05:02] LABS: ALBUMIN 1.9 g/dL (3.4-5.0); BILIRUBIN,TOTAL 0.2 mg/dL (0.2-1.0); CALCIUM, SERUM 7.1 mg/dL (8.5-10.1); CREATININE 0.9 mg/dL (0.6-1.3); MAGNESIUM 1.7 mg/dL (1.8-2.4); PHOSPHORUS 1.7 mg/dL (2.5-4.9); POTASSIUM 3.4 mmol/L (3.5-5.1); TOTAL PROTEIN, SERUM 6.6 g/dL (6.4-8.2)
[2017-11-26 05:17] LABS: BAND % (MANUAL) 1 % (0.0-5.0); EOSINOPHILS % (MANUAL) 4 % (0-4); LYMPHOCYTES % (MANUAL) 14 % (16-48); MONOCYTES % (MANUAL) 8 % (0-11.0); NEUTROPHILS % (MANUAL) 73 (42-76)
[2017-11-26 05:23] LABS: BASOPHILS % (AUTO) 0.4 % (0.0-2.0); EOSINOPHILS % (AUTO) 3.1 % (0.0-6.0); HEMATOCRIT 22 % (39-51); HEMOGLOBIN 7.1 g/dL (13.5-17.5); LYMPHOCYTES # (AUTO) 1.1 /CMM (0.8-4.8); LYMPHOCYTES % (AUTO) 11.5 % (20.0-44.0); MEAN CORPUSCULAR HEMOGLOBIN 28 PG (26.0-33.0); MEAN CORPUSCULAR HGB CONC 33 g/dl (31.0-36.0); MEAN CORPUSCULAR VOLUME 86 fL (80-96); MONOCYTES % (AUTO) 10.9 % (2.0-12.0); NEUTROPHILS # (AUTO) 6.8 /CMM (1.8-8.9); NEUTROPHILS % (AUTO) 74.1 % (43.0-81.0); PLATELET COUNT (AUTO) 214 /CMM (150-450); RDW COEFFICIENT OF VARIATION 16.3 (11.5-15.0); WHITE BLOOD COUNT (AUTO) 9.2 K/uL (4.3-11.0)
--- NOTE | 2017-11-26 05:30 | NUR ---
ICU/ABRADING MACHINE TENDER CBC CAME BACK 7.06/25 , WILL PASS ON TO DAY NURSE, WILL MONITOR PT'S URINE DUE TO PINK TINGE AND SOME CLOTS.
--- NOTE | 2017-11-26 07:30 | NUR ---
CRUSHER PLANT OPERATOR INITIAL NOTES RECEIVED PATIENT OBTUNDED IN BED, ON VENTILATOR SETTINGS ORDERED, HOB ELEVATED SUCTIONED REDDISH BROWN THICK SECRETIONS, PATIENT IS ON TELE MONITORING ST 100 HR, AFEBRILE 99.4 F, NO SIGNS OF DISTRESS, L FEMORAL IV CLEAN AND PATENT NS @ 150 ML/HR, GTUBE IN PLACE NO RESIDUAL NOTED. FC TO GRAVITY BLOOD TINGED URINE NOTED. BED IN LOW AND LOCKED POSITION WILL CONTINUE TO MONITOR.
[2017-11-26] MEDS: PANTOPRAZOLE 40 MG VIAL IV SCH (08:22)
[2017-11-26] MEDS: ZINC SULFATE 220 MG CAPSULE GT SCH (08:22)
[2017-11-26] MEDS: LORAZEPAM 1 MG TABLET GT PRN (08:22)
[2017-11-26] MEDS: ENOXAPARIN SODIUM 40 MG/0.4 ML DISP.SYRIN SQ SCH (08:22)
[2017-11-26] MEDS: METOPROLOL TARTRATE 25 MG TABLET GT SCH ×2 (08:22→16:09)
[2017-11-26] MEDS: ASCORBIC ACID 500 MG TABLET GT SCH (08:22)
[2017-11-26] MEDS: MULTIVIT, IRON, MIN NO. 8, FA 1 TAB GT SCH (08:22)
[2017-11-26] MEDS: LEVETIRACETAM SOL (5 ML) 100 MG/ML UDC GT SCH ×2 (08:22→16:09)
[2017-11-26] MEDS: Magnesium 1GM/D5W 100ML PREMIX 100 ML IV SCH ×2 (08:41→10:01)
--- NOTE | 2017-11-26 09:00 | NUR ---
DIRECTOR OF ASSESSMENT NOTES PATIENT LOVENOX HELD DUE TO BLOOD IN URINE AND DECREASING H/H.
[2017-11-26] MEDS ORDERED: POTASSIUM PHOSPHATE MM 15 MMOL in IV D5W 250 ML IV SCH (10:00)
[2017-11-26] MEDS: VANCOMYCIN 0.75 GM in IV D5W 250 ML IV SCH (10:15)
--- NOTE | 2017-11-26 10:42 | NUR ---
WOUND CARE CONSULT: PT FOLLOWED BY PLASTIC SURGERY TEAM FOR WOUND/SKIN ISSUES. DEFER TO SURGICAL TEAM FOR WOUND TREATMENT PLAN. PT ON FIRST STEP MATTRESS. ALL SKIN PROTECTION AND PRESSURE ULCER PREVENTION MEASURES IN PLACE AND DISCUSSED WITH NURSING STAFF. CURRENT ISAC SCORE IS 12.
[2017-11-26] MEDS ORDERED: Z GUARD REMEDY 2 OZ OINT TP PRN (11:00)
[2017-11-26] MEDS: SOD FERRIC GLUC 125 MG in IV NS 0.9% 100 ML IV SCH (14:26)
[2017-11-26] MEDS: GLUCERNA 1.2 1,000 ML BOTTLE GT SCH (15:00)
[2017-11-26] MEDS: LACTOBACILLUS RHAMNOSUS GG 1 EACH CAP.SPRINK PO SCH (16:09)
[2017-11-26] MEDS: INSULIN REGULAR, HUMAN 100 UNIT/ML 3 ML VIAL SQ PRN ×2 (17:24→23:36)
--- NOTE | 2017-11-26 18:33 | NUR ---
EMPLOYEE BENEFITS DIRECTOR END NOTES PATIENT RESTING IN BED, NIECE AT BEDSIDE, PATIENT SUCTIONED AND MADE COMFORTABLE, ALL NEEDS ATTENDED TO, WILL ENDORSE TO BENEFITS ADVISOR FOR CONTINUITY OF CARE.
--- NOTE | 2017-11-26 19:00 | NUR ---
RN INITIAL NOTES RECEIVED THE PATIENT ASLEEP ON BED, AROUSABLE TO TOUCH AND PAIN. PT IS OBTUNDED. ON VENT WITH SETTINGS AC 14, TV 500, FIO2 40%, PEEP 5, PORTEX 7, SATURATING WELL, NO S/S OF RESP DISTRESS. CURRENTLY SR ON THE MONITOR, HR 90'S. GTUBE TO GLUCERNA 1.2 @ 60MLS/HR, NO RESIDUALS. MULLEN CATH INTACT, PINK/RED TINGED URINE NOTED. LEFT FEMORAL TLC TKO, FLUSHED AND PATENT, NO S/S OF INFILTRATION/INFECTION, DRESSING CDI. BED LOW AND LOCKED, SIDERAILS UP, BED ALARM ON. WILL MONITOR
[2017-11-26] MEDS: SENNOSIDES 8.6 MG TABLET GT SCH (21:37)
[2017-11-26] MEDS: INSULIN GLARGINE, 100 UNIT/ML CARTRIDGE SQ SCH (21:38)
[2017-11-26] MEDS: VANCOMYCIN 1 GM in IV D5W 250 ML IV SCH (21:42)
[2017-11-27] VITALS (32 sets, daily range): BP systolic 112–143; BP diastolic 60–78
[2017-11-27] MEDS: CEFEPIME 1 GM in IV D5W 50 ML IV SCH ×2 (01:32→14:04)
[2017-11-27 04:41] LABS: BASOPHILS % (AUTO) 0.5 % (0.0-2.0); EOSINOPHILS % (AUTO) 4.3 % (0.0-6.0); LYMPHOCYTES # (AUTO) 1.3 /CMM (0.8-4.8); LYMPHOCYTES % (AUTO) 16.7 % (20.0-44.0); MEAN CORPUSCULAR HEMOGLOBIN 29 PG (26.0-33.0); MEAN CORPUSCULAR HGB CONC 34 g/dl (31.0-36.0); MEAN CORPUSCULAR VOLUME 86 fL (80-96); MONOCYTES # (AUTO) 0.8 /CMM (0.1-1.30); MONOCYTES % (AUTO) 10.6 % (2.0-12.0); NEUTROPHILS # (AUTO) 5.3 /CMM (1.8-8.9); NEUTROPHILS % (AUTO) 67.9 % (43.0-81.0); PLATELET COUNT (AUTO) 268 /CMM (150-450); RDW COEFFICIENT OF VARIATION 16.5 (11.5-15.0); RED BLOOD CELL COUNT(AUTO) 2.32 MIL/uL (4.5-6.0); WHITE BLOOD COUNT (AUTO) 7.8 K/uL (4.3-11.0)
[2017-11-27 04:50] LABS: HEMATOCRIT 20 % (39-51); HEMOGLOBIN 6.7 g/dL (13.5-17.5)
[2017-11-27 04:56] LABS: CALCIUM, SERUM 7.7 mg/dL (8.5-10.1); MAGNESIUM 2.1 mg/dL (1.8-2.4); POTASSIUM 3.5 mmol/L (3.5-5.1)
[2017-11-27] MEDS: LORAZEPAM 1 MG TABLET GT PRN ×2 (05:23→23:16)
[2017-11-27] MEDS: BLOOD SUGAR DIAGNOSTIC 1 EACH STRIP IN SCH ×4 (05:23→23:16)
[2017-11-27] MEDS: INSULIN REGULAR, HUMAN 100 UNIT/ML 3 ML VIAL SQ PRN ×2 (05:24→23:21)
--- NOTE | 2017-11-27 06:00 | NUR ---
RN NOTES NOTIFIED JOSE G DRILL PRESS SET UP OPERATOR RADIAL OF PATIENT'S HGB 6.12/21, DRILL PRESS SET UP OPERATOR RADIAL ORDERED FOR OB STOOL TO BE COLLECTED. OTHERWISE, PATIENT REMAINS STABLE OF THE MOMENT. ALL DUE MEDS GIVEN, AM CARE PROVIDED. WILL ENDORSE CORA TO AM RN
--- NOTE | 2017-11-27 07:48 | NUR ---
INITIAL SOFTWARE PRODUCT SPECIALIST NOTE RCVD PT WITH EYES CLOSED UNABLE TO FOLLOW COMMANDS. ST ON TELE. TOLERATING ORDERED VENT SETTINGS. PEG PLACEMENT VERIFIED BY AUSCULTATION/ASPIRATION. NO RESIDUAL OBTAINED. TOLERATING TUBE FEEDING WELL. MULLEN TO GRAVITY DRAINING PINK COLORED URINE. LEFT FEMORAL TLC C/D/I/PATENT. WILL CONTINUE TO MONITOR PT FOR SAFETY AND COMFORT. BED IN LOW AND LOCKED POSITION.
[2017-11-27] MEDS: ZINC SULFATE 220 MG CAPSULE GT SCH (08:31)
[2017-11-27] MEDS: ASCORBIC ACID 500 MG TABLET GT SCH (08:31)
[2017-11-27] MEDS: PANTOPRAZOLE 40 MG VIAL IV SCH (08:31)
[2017-11-27] MEDS: LEVETIRACETAM SOL (5 ML) 100 MG/ML UDC GT SCH ×2 (08:31→17:37)
[2017-11-27] MEDS: DOCUSATE SODIUM LIQ 100 MG/10 ML UDC GT SCH (08:31)
[2017-11-27] MEDS: LACTOBACILLUS RHAMNOSUS GG 1 EACH CAP.SPRINK PO SCH ×2 (08:31→17:37)
[2017-11-27] MEDS: METOPROLOL TARTRATE 25 MG TABLET GT SCH ×2 (08:32→17:38)
[2017-11-27] MEDS: MULTIVIT, IRON, MIN NO. 8, FA 1 TAB GT SCH (08:32)
[2017-11-27] MEDS: ENOXAPARIN SODIUM 40 MG/0.4 ML DISP.SYRIN SQ SCH (08:43)
[2017-11-27] MEDS: VANCOMYCIN 1 GM in IV D5W 250 ML IV SCH (09:19)
--- NOTE | 2017-11-27 10:56 | NUR ---
PLASTIC EXTRUSION OPERATOR NOTE DR. HUTCHINSON IN UNIT RECOMMENDED TO GIVE ONE UNIT PRBC. ORDER ENTERED. WILL F/U.
[2017-11-27] MEDS: GLUCERNA 1.2 1,000 ML BOTTLE GT SCH (11:08)
[2017-11-27] MEDS: SOD FERRIC GLUC 125 MG in IV NS 0.9% 100 ML IV SCH (14:04)
--- NOTE | 2017-11-27 14:39 | NUR ---
TOBACCO STEMMER NOTE PT'S CARE ENDORSED TO HEMA WILKINSON FOR CONTINUITY OF CARE. PRBC INFUSING VITAL SIGNS STABLE. NO S/O DISTRESS OBSERVED.
--- NOTE | 2017-11-27 14:50 | NUR ---
RN NOTE RECEIVED REPORT FROM [facility] ICU. RECEIVED PATIENT HOB ELEVATED NONVERBAL BUT IS ABLE TO OPEN EYES WITH TACTILE STIMULI. PATIENT IS VENT/TRACH DEPENDENT WITH APPROPRIATE SETTINGS. ON INFERTILITY MEDICAL ASSISTANT OF SINUS RHYTHM HR OF 83. NO DISTRESS NOTED. GT SITE INTACT AND PATENT WITH ONGOING FEEDINGS WELL TOLERATED WITH NO RESIDUALS NOTED. F/C INTACT AND PATENT NOTED WITH PINK COLORED URINE ADEQUATELY DRAINING. LEFT FEMORAL TRIPLE LUMEN CATH C/D/I/PATENT. ALL SAFETY MEASURES DONE. BED LOW AND LOCKED POSITION. PLACED CALL LIGHT WITHIN REACH. WILL CONTINUE TO MONITOR.
--- NOTE | 2017-11-27 15:52 | NUR ---
RN NOTE PATIENT CONTINUES TO BE TRANSFUSED. PATIENT REMAINS STABLE, NO REACTION OR DISTRESS NOTED. WILL CONTINUE TO MONITOR.
--- NOTE | 2017-11-27 16:05 | NUR ---
RN NOTE TRANSFUSION COMPLETE. NO DISTRESS OR REACTIONS NOTED DURING TRANSFUSION. PATIENT REMAINS STABLE. VITAL SIGNS DOCUMENTED. WILL CONTINUE TO MONITOR
[2017-11-27] MEDS: LEVOFLOXACIN 750 MG /D5W 150ML 750 MG in PREMIX 1 EA IV SCH (17:37)
--- NOTE | 2017-11-27 18:32 | NUR ---
RT END OF THE SHIFT REPORT, PT. 67 Y OLD MALE REMAIN TRACHED PORTEX # 7 ON THE VENT WITH NOTED SETTINGS. PT. IS AWAKE AND FOLLOWS NO COMMANDS. VENT ALARMS ARE SET AND AUDIBLE WITH AMBU BAG AT THE BEDSIDE. MESMERIST CUFF PRESSURE NOTED. VENT IS PLUGGED INTO RED OUTLET. B/S BILATERALLY RHONCHI SX MODERATE THICK YELLOW SECRETIONS. NO RESPIRATORY DISTRESS NOTED T/O SHIFT, WILL CONTINUE TO MONITOR, NO CHANGES T/O SHIFT REPORT WILL BE GIVEN TO PM SHIFT.PT. TRANSFERRED TO [facility]. Addendum: 11/27/17 at 1834 by ISAC INTERIANO RT Amended: Links added.
--- NOTE | 2017-11-27 19:30 | NUR ---
CORNELIA RN INITIAL NOTE RECEIVED PATIENT OBTUNDED, VENT DEPENDENT. NO S/S OF PAIN OR DISCOMFORT. NO RESPIRATORY DISTRESS NOTED. WITH VENT SETTINGS AC 147, TV 500, FIO2 40%, PEEP 5. TRACH C/D/I. ON TELE MONITOR SR. GT PATENT, INTACT, IN PLACE. MINIMAL RESIDUAL NOTED. WITH LEFT FEMORAL TLC PATENT AND INTACT, TKO. HOB ELEVATED. TURNED AND REPOSITIONED. SIDE RAILS UP AND LOCKED. BED KEPT AT LOWEST POSITION. WILL CONTINUE TO MONITOR. Addendum: 11/28/17 at 0722 by JENNIFER CAMILO RN EDIT; VENT SETTINGS AC 14, VT 500, FIO2 40%, PEEP 5
--- NOTE | 2017-11-27 19:36 | NUR ---
RN NOTE PATIENT REMAINED STABLE THROUGHOUT SHIFT. NO ACUTE CHANGES OR DISTRESS NOTED. WILL ENDORSE TO NEXT SHIFT TO CONTINUE TO MONITOR CONTINUITY OF CARE.
[2017-11-27] MEDS: SENNOSIDES 8.6 MG TABLET GT SCH (22:03)
[2017-11-27] MEDS: INSULIN GLARGINE, 100 UNIT/ML CARTRIDGE SQ SCH (22:10)
[2017-11-28] VITALS: BP 136/68
[2017-11-28] MEDS: CEFEPIME 1 GM in IV D5W 50 ML IV SCH ×2 (01:59→14:13)
[2017-11-28 04:00] VITALS: BP 148/82
[2017-11-28] MEDS: GLUCERNA 1.2 1,000 ML BOTTLE GT SCH ×2 (05:41→21:12)
[2017-11-28] MEDS: BLOOD SUGAR DIAGNOSTIC 1 EACH STRIP IN SCH ×4 (05:43→23:35)
[2017-11-28 06:39] LABS: BASOPHILS % (AUTO) 0.3 % (0.0-2.0); EOSINOPHILS % (AUTO) 3.5 % (0.0-6.0); HEMATOCRIT 29 % (39-51); HEMOGLOBIN 9.4 g/dL (13.5-17.5); LYMPHOCYTES # (AUTO) 1.3 /CMM (0.8-4.8); LYMPHOCYTES % (AUTO) 13.6 % (20.0-44.0); MEAN CORPUSCULAR HEMOGLOBIN 29 PG (26.0-33.0); MEAN CORPUSCULAR HGB CONC 33 g/dl (31.0-36.0); MEAN CORPUSCULAR VOLUME 87 fL (80-96); MONOCYTES % (AUTO) 10.7 % (2.0-12.0); NEUTROPHILS # (AUTO) 6.8 /CMM (1.8-8.9); NEUTROPHILS % (AUTO) 71.9 % (43.0-81.0); PLATELET COUNT (AUTO) 299 /CMM (150-450); RDW COEFFICIENT OF VARIATION 15.8 (11.5-15.0); RED BLOOD CELL COUNT(AUTO) 3.29 MIL/uL (4.5-6.0); WHITE BLOOD COUNT (AUTO) 9.5 K/uL (4.3-11.0)
[2017-11-28 06:43] LABS: CALCIUM, SERUM 8.3 mg/dL (8.5-10.1); CREATININE 1.1 mg/dL (0.6-1.3); POTASSIUM 3.8 mmol/L (3.5-5.1)
--- NOTE | 2017-11-28 07:12 | NUR ---
RN INITIAL NOTES: REC'D PT AWAKE ON BED, NOT IN ANY DISTRESS, OBTUNDED. ON MV VIA TRACH, SATING AT 100%. ON TELEMONITOR, SR 88 BPM. HAS L FEMORAL TLC, PATENT & INTACT W/ NO S/SX OF INFECTION/INFILTRATION NOTED, ON TKO. HAS FC PATENT & INTACT DRAINING TO BSB. ON CONT TF VIA GT, GLUCERNA 1.2 X 60 CC/HR INFUSING WELL, NO RESIDUAL NOTED UPON CHECKING. PROVIDED COMFORT & SAFETY ENVIRONMENT. CALL LIGHT W/IN REACH. BED KEPT LOW & IN LOCKED POS. WILL CONTINUE TO MONITOR & ATTEND PT NEEDS.
--- NOTE | 2017-11-28 07:22 | NUR ---
CORNEL[facility] RN CLOSING NOTE NO SIGNIFICANT CHANGES OVERNIGHT. NO RESPIRATORY DISTRESS NOTED. TOLERATING GTF. KEPT CLEAN AND DRY. WOUND TX PROVIDED. TURNED AND REPOSITIONED Q2 AND PRN. HOB ELEVATED. SIDE RAILS UP AND LOCKED. BED KEPT AT LOWEST POSITION. CONTINUITY OF CARE ENDORSED TO AM NURSE.
--- NOTE | 2017-11-28 07:48 | NUR ---
RT PT RECEIVED WITH A PORTEX 7 TRACH ON THE VENT WITH NOTED SETTINGS. PT IS AWAKE BUT DOES NOT FOLLOW COMMANDS. VENT ALARMS ARE SET AND AUDIBLE WITH BVM BY BEDSIDE. INSERTING PRESS OPERATOR CUFF PRESSURE NOTED. VENT IS PLUGGED INTO RED OUTLET. PT SX'D MODERATE THICK PALE YELLOW SECRETIONS. NO RESPIRATORY DISTRESS NOTED AT THIS TIME, WILL CONTINUE TO MONITOR. Addendum: 11/28/17 at 0819 by ANGELLA RASCON RT Amended: Links added.
[2017-11-28 08:00] VITALS: BP 128/70
[2017-11-28] MEDS: PANTOPRAZOLE 40 MG VIAL IV SCH (08:36)
[2017-11-28] MEDS: MULTIVIT, IRON, MIN NO. 8, FA 1 TAB GT SCH (08:36)
[2017-11-28] MEDS: LEVETIRACETAM SOL (5 ML) 100 MG/ML UDC GT SCH ×2 (08:36→17:01)
[2017-11-28] MEDS: ZINC SULFATE 220 MG CAPSULE GT SCH (08:36)
[2017-11-28] MEDS: DOCUSATE SODIUM LIQ 100 MG/10 ML UDC GT SCH (08:36)
[2017-11-28] MEDS: METOPROLOL TARTRATE 25 MG TABLET GT SCH ×2 (08:37→17:02)
[2017-11-28] MEDS: ASCORBIC ACID 500 MG TABLET GT SCH (08:37)
[2017-11-28] MEDS: LACTOBACILLUS RHAMNOSUS GG 1 EACH CAP.SPRINK PO SCH ×2 (08:37→17:01)
[2017-11-28] MEDS: ENOXAPARIN SODIUM 40 MG/0.4 ML DISP.SYRIN SQ SCH (08:38)
[2017-11-28 12:00] VITALS: BP 123/67
[2017-11-28] MEDS: INSULIN REGULAR, HUMAN 100 UNIT/ML 3 ML VIAL SQ PRN ×3 (12:09→23:37)
[2017-11-28] MEDS: SOD FERRIC GLUC 125 MG in IV NS 0.9% 100 ML IV SCH (14:35)
[2017-11-28 16:00] VITALS: BP 145/78
[2017-11-28] MEDS: LEVOFLOXACIN 750 MG /D5W 150ML 750 MG in PREMIX 1 EA IV SCH (16:09)
--- NOTE | 2017-11-28 18:32 | NUR ---
RN CLOSING NOTES: NO ACUTE CHANGES NOTED W/IN SHIFT. PT TOLERATED MV SETTINGS VIA TRACH. ON TELEMONITOR, STILL SR. L FEMORAL TLC, KEPT PATENT & INTACT W/ NO S/SX OF INFECTION/INFILTRATION NOTED, ON TKO. FC KEPT PATENT & INTACT DRAINING TO BSB. PT TOLERATED CONT TF VIA GT, GLUCERNA 1.2 X 60 CC/HR INFUSING WELL, NO RESIDUAL W/IN SHIFT. KEPT WELL RESTED. NEEDS ATTENDED. CALL LIGHT W/IN REACH. BED KEPT LOW & IN LOCKED POS. WILL ENDORSED TO PM RN FOR CORA. AT BEDSIDE.
[2017-11-28 20:00] VITALS: BP 157/84
[2017-11-28] MEDS: SENNOSIDES 8.6 MG TABLET GT SCH (21:13)
[2017-11-28] MEDS: INSULIN GLARGINE, 100 UNIT/ML CARTRIDGE SQ SCH (21:38)
[2017-11-29] VITALS (7 sets, daily range): BP systolic 129–160; BP diastolic 66–88
[2017-11-29] MEDS: CEFEPIME 1 GM in IV D5W 50 ML IV SCH ×2 (01:03→13:05)
[2017-11-29] MEDS: BLOOD SUGAR DIAGNOSTIC 1 EACH STRIP IN SCH ×4 (05:57→23:42)
[2017-11-29] MEDS: INSULIN REGULAR, HUMAN 100 UNIT/ML 3 ML VIAL SQ PRN ×4 (05:58→23:48)
[2017-11-29 06:28] LABS: BASOPHILS % (AUTO) 0.3 % (0.0-2.0); EOSINOPHILS % (AUTO) 2.4 % (0.0-6.0); HEMATOCRIT 30 % (39-51); HEMOGLOBIN 9.9 g/dL (13.5-17.5); LYMPHOCYTES # (AUTO) 1.3 /CMM (0.8-4.8); LYMPHOCYTES % (AUTO) 11.3 % (20.0-44.0); MEAN CORPUSCULAR HEMOGLOBIN 29 PG (26.0-33.0); MEAN CORPUSCULAR HGB CONC 33 g/dl (31.0-36.0); MEAN CORPUSCULAR VOLUME 88 fL (80-96); MONOCYTES # (AUTO) 1.3 /CMM (0.1-1.30); MONOCYTES % (AUTO) 11.5 % (2.0-12.0); NEUTROPHILS # (AUTO) 8.6 /CMM (1.8-8.9); NEUTROPHILS % (AUTO) 74.5 % (43.0-81.0); PLATELET COUNT (AUTO) 304 /CMM (150-450); RDW COEFFICIENT OF VARIATION 16.1 (11.5-15.0); RED BLOOD CELL COUNT(AUTO) 3.43 MIL/uL (4.5-6.0); WHITE BLOOD COUNT (AUTO) 11.5 K/uL (4.3-11.0)
[2017-11-29 06:37] LABS: CALCIUM, SERUM 8.4 mg/dL (8.5-10.1); POTASSIUM 4.3 mmol/L (3.5-5.1)
--- NOTE | 2017-11-29 08:00 | NUR ---
INITIAL NOTES,AM RECEIVED REPORT FROM NIGHT NURSE. PT IN BED, OBTUNDED. ON VENT SETTINGS ORDERED, NO ACUTE DISTRESS NOTED. SINUS ON TELE. MULLEN CATH IN PLACE, DRAINING URINE. TUBE FEEDING INFUSING ORDERED, TOLERATING WELL. FEMORAL TLC PATENT AND INTACT, NO S/S OF INFECTION OR INFILTRATION NOTED. ALL NEEDS WILL BE ATTENDED TO, SAFETY MEASURES TAKEN, BED IN LOW POSITION, SIDE RAILS UP, CALL LIGHT WITHIN REACH. POSSIBLE D/C TODAY, AWAITING FOR ORDERS
--- NOTE | 2017-11-29 09:00 | NUR ---
ICU/RN: REPORT WILL BE ENDORSED TO HEMA ASTUDILLO FOR CORA.
--- NOTE | 2017-11-29 09:30 | NUR ---
[facility] RN NOTES: RECEIVED PT FROM HEMA WAYNE. AWAKE, OBTUNDED. NO ACUTE DISTRESS NOTED. NO FACIAL GRIMACING OR ANY SIGNS OF PAIN NOTED. ON [facility] VENT, RT AT BEDSIDE DURING THIS TIME. ON TELE MONITOR SINUS TACHY HR 106BPM. ON MULLEN CATH INTACT AND PATENT WITH BLOOD TINGED URINE DRAINING. ON GTUBE FEEDING @60ML/HR, ABLE TO TOLERATE WELL. NO SIGNS/SYMPTOMS OF ASPIRATION NOTED. HAS LEFT FEMORAL TLC, INTACT AND PATENT. SIDE RAILS UP. HOB ELEVATED. CALL LIGHT WITHIN REACH. TURNED AND REPOSITIONED. WILL CONTINUE TO MONITOR.
[2017-11-29] MEDS: ACETAMINOPHEN 325 MG TABLET PO PRN ×2 (09:37→16:43)
[2017-11-29] MEDS: PANTOPRAZOLE 40 MG VIAL IV SCH (09:37)
[2017-11-29] MEDS: ZINC SULFATE 220 MG CAPSULE GT SCH (09:37)
[2017-11-29] MEDS: LACTOBACILLUS RHAMNOSUS GG 1 EACH CAP.SPRINK PO SCH ×2 (09:37→16:43)
[2017-11-29] MEDS: DOCUSATE SODIUM LIQ 100 MG/10 ML UDC GT SCH (09:38)
[2017-11-29] MEDS: LEVETIRACETAM SOL (5 ML) 100 MG/ML UDC GT SCH ×2 (09:38→16:44)
[2017-11-29] MEDS: MULTIVIT, IRON, MIN NO. 8, FA 1 TAB GT SCH (09:39)
[2017-11-29] MEDS: METOPROLOL TARTRATE 25 MG TABLET GT SCH ×2 (09:39→16:55)
[2017-11-29] MEDS: ASCORBIC ACID 500 MG TABLET GT SCH (09:39)
[2017-11-29] MEDS: ENOXAPARIN SODIUM 40 MG/0.4 ML DISP.SYRIN SQ SCH (09:40)
--- NOTE | 2017-11-29 12:00 | NUR ---
CORN[facility] RN NOTES: STILL AWAITING FOR DISCHARGE ORDER PER HEALTH SAFETY AND ENVIRONMENT MANAGER. NO ACUTE DISTRESS NOTED. NO SOB NOTED. KEPT CLEAN, DRY AND COMFORTABLE. TURNED AND REPOSITIONED EVERY 2HRS.
[2017-11-29] MEDS: SOD FERRIC GLUC 125 MG in IV NS 0.9% 100 ML IV SCH (13:53)
[2017-11-29] MEDS: LEVOFLOXACIN 750 MG /D5W 150ML 750 MG in PREMIX 1 EA IV SCH (15:23)
--- NOTE | 2017-11-29 15:30 | NUR ---
[facility]ORNEL[facility] RN NOTES: DEX VILLEGAS DNP NOTIFIED REGARDING BLOOD TINGED URINE AND ASKED ABOUT POSSIBLE DISCHARGE, STATED THAT HE WILL CHECK THE PT AND OK TO LEAVE LEFT FEMORAL TLC IN PLACE TO CONTINUE IV ATB.
--- NOTE | 2017-11-29 15:39 | NUR ---
RT PT RECEIVED WITH A PORTEX 7 TRACH ON THE VENT WITH NOTED SETTINGS. PT IS AWAKE BUT DOES NOT FOLLOW COMMANDS. VENT ALARMS ARE SET AND AUDIBLE WITH BVM BY BEDSIDE. ICT SALES REPRESENTATIVE CUFF PRESSURE NOTED. VENT IS PLUGGED INTO RED OUTLET. PT SX'D MODERATE THICK PALE YELLOW SECRETIONS. NO RESPIRATORY DISTRESS NOTED AT THIS TIME, WILL CONTINUE TO MONITOR.
--- NOTE | 2017-11-29 16:05 | NUR ---
CORNELIA RN NOTES: ROUNDS MADE. CENTRAL LINE DRESSING CHANGED. NO ACUTE DISTRESS NOTED. IV ATB GIVEN ORDERED. WILL CONTINUE TO MONITOR PT.
--- NOTE | 2017-11-29 16:41 | NUR ---
CORNELIA RN NOTE T 100.7 PATIENT WITH POSSIBLE DISCHARGE ,SPOKE WITH WINDOWS APPLICATION DEVELOPER. NOTIFIED ABOUT THIS V[place]AK,WINDOWS APPLICATION DEVELOPER SPOKE WITH DEX FRIED STILL OK TO DISCHARGE TO SNF WITH IV ATB AND OK TO GIVE TYLENOL WILL F\U
[2017-11-29] MEDS: GLUCERNA 1.2 1,000 ML BOTTLE GT SCH (17:24)
--- NOTE | 2017-11-29 18:25 | NUR ---
CORNELIA RN NOTE SPOKE WITH NEREYDA RN ID ,AWARE THAT T 100.7 OK TO CHEST X RAY AND HOLD POSSIBLE DISCHARGE FOR TODAY , WILL F\U
--- NOTE | 2017-11-29 18:54 | NUR ---
CORNELIA RN NOTES: PT LYING ON BED ASLEEP. AT BEDSIDE DURING THIS TIME. NO FACIAL GRIMACING OR ANY SIGNS OF PAIN NOTED. NO SOB. ALL DUE MEDS GIVEN ORDERED AND WELL TOLERATED. GT INTACT AND PATENT, TOLERATING FEEDING WELL. CALL LIGHT PLACED WITHIN REACH. SAFETY AND FALL PRECAUTIONS OBSERVED AND MAINTAINED. WILL ENDORSE TO PROTECTIVE SERVICES CASE WORKER NURSE FOR [employer].
--- NOTE | 2017-11-29 19:30 | NUR ---
TELE/RN NOTES: RECEIVED PT. ON MECHANICAL VENT TOLERATING SETTINGS WELL. OBTUNDED BUT EYES OPEN. W/ FAMILY MEMBER BY BEDSIDE. NO S/S OF RESPIRATORY DISTRESS. NO FACIAL GRIMACES OR MOANING NOTED. ON TELE MONITOR SR @ 96. W/ GTF OF GLUCERNA @ 60 CC/ HR TOLERATING WELL W/ NO RESIDUAL NOTED. HAS LEFT FEMORAL TLC TKO PATENT AND INTACT W/ NO S/S OF INFECTION/INFILTRATION NOTED. HAS F/C PATENT AND INTACT DRAINING VIA GRAVITY W/ YELLOW URINE. MAINTAINED ASPIRATION PRECAUTION. CALL LIGHT W/ REACH. WILL CONTINUE TO MONITOR.
--- NOTE | 2017-11-29 20:22 | NUR ---
RT NOTE: TRACH PT RECEIVED ON THE VENT WITH NOTED SETTINGS. FAMILY MEMBER AT BEDSIDE. VENT ALARMS ARE SET AND AUDIBLE WITH AMBU BAG AT BEDSIDE. INCLINOMETER TESTER DONE. VENT IS PLUGGED INTO RED OUTLET. PT SX'D WITH MODERATE THICK PALE YELLOW SECRETIONS. NO RESPIRATORY DISTRESS NOTED AT THIS TIME, WILL CONTINUE TO MONITOR.
[2017-11-29] MEDS: SENNOSIDES 8.6 MG TABLET GT SCH (21:30)
[2017-11-29] MEDS: INSULIN GLARGINE, 100 UNIT/ML CARTRIDGE SQ SCH (21:34)
[2017-11-30] VITALS (7 sets, daily range): BP systolic 122–145; BP diastolic 68–85
[2017-11-30] MEDS: CEFEPIME 1 GM in IV D5W 50 ML IV SCH (01:24)
[2017-11-30] MEDS: BLOOD SUGAR DIAGNOSTIC 1 EACH STRIP IN SCH ×4 (05:20→23:25)
[2017-11-30] MEDS: INSULIN REGULAR, HUMAN 100 UNIT/ML 3 ML VIAL SQ PRN ×2 (05:22→23:31)
[2017-11-30 06:15] LABS: BASOPHILS % (AUTO) 0.1 % (0.0-2.0); EOSINOPHILS % (AUTO) 2.4 % (0.0-6.0); HEMATOCRIT 27 % (39-51); LYMPHOCYTES # (AUTO) 1.7 /CMM (0.8-4.8); LYMPHOCYTES % (AUTO) 14.1 % (20.0-44.0); MEAN CORPUSCULAR HEMOGLOBIN 29 PG (26.0-33.0); MEAN CORPUSCULAR HGB CONC 33 g/dl (31.0-36.0); MEAN CORPUSCULAR VOLUME 88 fL (80-96); MONOCYTES # (AUTO) 1.5 /CMM (0.1-1.30); MONOCYTES % (AUTO) 13.1 % (2.0-12.0); NEUTROPHILS # (AUTO) 8.2 /CMM (1.8-8.9); NEUTROPHILS % (AUTO) 70.3 % (43.0-81.0); PLATELET COUNT (AUTO) 280 /CMM (150-450); RDW COEFFICIENT OF VARIATION 16.4 (11.5-15.0); RED BLOOD CELL COUNT(AUTO) 3.08 MIL/uL (4.5-6.0); WHITE BLOOD COUNT (AUTO) 11.7 K/uL (4.3-11.0)
[2017-11-30 06:33] LABS: CALCIUM, SERUM 8.5 mg/dL (8.5-10.1); CREATININE 1.2 mg/dL (0.6-1.3); POTASSIUM 3.9 mmol/L (3.5-5.1)
--- NOTE | 2017-11-30 07:15 | NUR ---
TELE/RN NOTES RECEIVED PT IN BED IN SEMI FOWLERS POSITION. OBTUNDED BUT EYES OPEN. [facility] TOL[facility] SETTINGS WELL. NO SOB NOTED. NO SIGNS OF PAIN NOTED. SINUS TACH AT 109 ON TELEMONITOR. AFEBRILE. GT INTACT WITH ONGOING GTF GLUCERNA 1.2 AT 60 ML/HR, TOLERATING WELL, NO RESIDUE NOTED. WITH ONGOING NS AT TKO ON LFEMORAL TLC, NO SIGNS OF INFECTION/INFILTRATION NOTED. WITH INTACT FC DRAINING BY GRAVITY, YELLOW COLORED URINE. SAFETY MEASURES AND ASPIRATION PRECAUTION OBSERVED, CALL LIGHT WITHIN REACH, NEEDS ATTENDED
--- NOTE | 2017-11-30 07:21 | NUR ---
TELE/RN NOTES: NO ACUTE CHANGES NOTED DURING THIS SHIFT. REPORT GIVEN TO AM NURSE FOR CORA.
[2017-11-30] MEDS: DOCUSATE SODIUM LIQ 100 MG/10 ML UDC GT SCH (08:18)
[2017-11-30] MEDS: LACTOBACILLUS RHAMNOSUS GG 1 EACH CAP.SPRINK PO SCH ×2 (08:18→17:10)
[2017-11-30] MEDS: ZINC SULFATE 220 MG CAPSULE GT SCH (08:19)
[2017-11-30] MEDS: ASCORBIC ACID 500 MG TABLET GT SCH (08:19)
[2017-11-30] MEDS: LEVETIRACETAM SOL (5 ML) 100 MG/ML UDC GT SCH ×2 (08:19→17:10)
[2017-11-30] MEDS: MULTIVIT, IRON, MIN NO. 8, FA 1 TAB GT SCH (08:19)
[2017-11-30] MEDS: PANTOPRAZOLE 40 MG VIAL IV SCH (08:19)
[2017-11-30] MEDS: METOPROLOL TARTRATE 25 MG TABLET GT SCH ×2 (08:20→17:10)
[2017-11-30] MEDS: ENOXAPARIN SODIUM 40 MG/0.4 ML DISP.SYRIN SQ SCH (08:21)
--- NOTE | 2017-11-30 11:00 | NUR ---
RN NOTED D/DAMARIS FC ORDERED. PT TOLERATED WELL
--- NOTE | 2017-11-30 11:30 | NUR ---
RN NOTES PT'S TEMPT 110.2, PROVIDED COOLING MEASURES, PRN TYLENOL SUPP GIVEN, WILL CONT TO MONITOR
--- NOTE | 2017-11-30 12:00 | NUR ---
RN NOTES RECHECKED PT'S TEMPT= 99.0, COOLING MEASURES PROVIDED, WILL CONT TO MONITOR
[2017-11-30] MEDS: SOD FERRIC GLUC 125 MG in IV NS 0.9% 100 ML IV SCH (13:38)
[2017-11-30] MEDS: CEFEPIME 2 GM in IV D5W 100 ML IV SCH (14:57)
[2017-11-30] MEDS: LEVOFLOXACIN 750 MG /D5W 150ML 750 MG in PREMIX 1 EA IV SCH (17:00)
--- NOTE | 2017-11-30 19:30 | NUR ---
RN NOTES PT IN STABLE CONDITION. NO ACUTE DISTRESS NOTED. AFEBRILE. SAFETY MEASURES AND ASPIRATION PRECAUTIION OBSERVED AT ALL TIMES. ALL NEEDS ATTENDED. ENDORSED PM SHIFT NURSE THAT PT IS STILL FOR CENTRAL LINE REMOVAL AFTER MIDLINE INSERTION. CENTRAL LINE TIP FOR CULTURE.
--- NOTE | 2017-11-30 19:45 | NUR ---
RECEIVED PT TRACH PORTEX 7 ON MECH VENT WITH NOTED SETTINGS. VENT ALARM SET AND AUDIBLE. VENT PLUGGED INTO RED OUTLET, AMU BAG AT BEDSIDE. SX'D MODERATE AMT OF THICK PALE YELLOW SECRETIONS. NO RESPIRATORY DISTRESS NOTED, WILL CONTINUE TO MONITOR.
--- NOTE | 2017-11-30 20:00 | NUR ---
RN INITIAL NOTES PT IN STABLE CONDITION. NO ACUTE DISTRESS NOTED. AFEBRILE. SAFETY MEASURES AND ASPIRATION PRECAUTION OBSERVED AT ALL TIMES. ALL NEEDS ATTENDED. FAMILY AT BED SIDE. L FEMORAL TKO. TUBE FEEDING AT 6O. ALL SAFETY MEASURES TAKEN. WILL CONT TO MONITOR.
[2017-11-30] MEDS: SENNOSIDES 8.6 MG TABLET GT SCH (21:09)
[2017-11-30] MEDS: INSULIN GLARGINE, 100 UNIT/ML CARTRIDGE SQ SCH (21:20)
[2017-12-01] VITALS: BP 160/87
[2017-12-01] MEDS: CEFEPIME 2 GM in IV D5W 100 ML IV SCH ×2 (02:18→15:05)
[2017-12-01 04:00] VITALS: BP 137/84
[2017-12-01] MEDS: BLOOD SUGAR DIAGNOSTIC 1 EACH STRIP IN SCH ×4 (05:15→23:56)
[2017-12-01] MEDS: INSULIN REGULAR, HUMAN 100 UNIT/ML 3 ML VIAL SQ PRN ×4 (05:17→21:41)
[2017-12-01] MEDS: GLUCERNA 1.2 1,000 ML BOTTLE GT SCH (05:44)
[2017-12-01 06:30] LABS: CALCIUM, SERUM 8.7 mg/dL (8.5-10.1); CREATININE 1.3 mg/dL (0.6-1.3); POTASSIUM 4.1 mmol/L (3.5-5.1)
--- NOTE | 2017-12-01 06:39 | NUR ---
RN CLOSING NOTES PT IN STABLE CONDITION. NO ACUTE DISTRESS NOTED. AFEBRILE. SAFETY MEASURES AND ASPIRATION PRECAUTIONS OBSERVED AT ALL TIMES. ALL NEEDS ATTENDED. WILL ENDORSE TO AM SHIFT NURSE THAT PT IS STILL FOR CENTRAL LINE REMOVAL AFTER MIDLINE INSERTION. CENTRAL LINE TIP FOR CULTURE.
[2017-12-01 08:00] VITALS: BP 145/83
[2017-12-01] MEDS: LACTOBACILLUS RHAMNOSUS GG 1 EACH CAP.SPRINK PO SCH ×2 (08:00→16:18)
[2017-12-01] MEDS: MULTIVIT, IRON, MIN NO. 8, FA 1 TAB GT SCH (08:00)
[2017-12-01] MEDS: DOCUSATE SODIUM LIQ 100 MG/10 ML UDC GT SCH (08:00)
[2017-12-01] MEDS: ASCORBIC ACID 500 MG TABLET GT SCH (08:00)
[2017-12-01] MEDS: LEVETIRACETAM SOL (5 ML) 100 MG/ML UDC GT SCH ×2 (08:00→16:18)
[2017-12-01] MEDS: PANTOPRAZOLE 40 MG VIAL IV SCH (08:00)
[2017-12-01] MEDS: ZINC SULFATE 220 MG CAPSULE GT SCH (08:00)
[2017-12-01] MEDS: METOPROLOL TARTRATE 25 MG TABLET GT SCH ×2 (08:01→16:22)
[2017-12-01] MEDS: ENOXAPARIN SODIUM 40 MG/0.4 ML DISP.SYRIN SQ SCH (08:03)
[2017-12-01 12:00] VITALS: BP 131/80
[2017-12-01 15:13] LABS: BASOPHILS # (AUTO) 0.1 /CMM (0.0-0.2); BASOPHILS % (AUTO) 0.4 % (0.0-2.0); EOSINOPHILS % (AUTO) 1.3 % (0.0-6.0); HEMATOCRIT 28 % (39-51); LYMPHOCYTES # (AUTO) 1.7 /CMM (0.8-4.8); LYMPHOCYTES % (AUTO) 11.7 % (20.0-44.0); MEAN CORPUSCULAR HEMOGLOBIN 29 PG (26.0-33.0); MEAN CORPUSCULAR HGB CONC 32 g/dl (31.0-36.0); MEAN CORPUSCULAR VOLUME 89 fL (80-96); MONOCYTES # (AUTO) 1.8 /CMM (0.1-1.30); NEUTROPHILS # (AUTO) 11.1 /CMM (1.8-8.9); NEUTROPHILS % (AUTO) 74.6 % (43.0-81.0); PLATELET COUNT (AUTO) 295 /CMM (150-450); RDW COEFFICIENT OF VARIATION 17.5 (11.5-15.0); RED BLOOD CELL COUNT(AUTO) 3.15 MIL/uL (4.5-6.0); WHITE BLOOD COUNT (AUTO) 14.9 K/uL (4.3-11.0)
[2017-12-01 16:00] VITALS: BP 141/75
[2017-12-01] MEDS: LEVOFLOXACIN 750 MG /D5W 150ML 750 MG in PREMIX 1 EA IV SCH (16:22)
[2017-12-01] MEDS: ACETAMINOPHEN 325 MG TABLET PO PRN (16:26)
--- NOTE | 2017-12-01 17:31 | NUR ---
RECEIVED PT TRACH ON MECHANICAL VENTILATOR. SX'D MODERATE AMT OF THICK GOMEZ SECRETIONS. VENT ALARMS SET AND AUDIBLE. AMBU BAG AT BEDSIDE. VENT PLUGGED INTO RED OUTLET. WILL CONTINUE TO MONITOR.
[2017-12-01 17:59] LABS: LYMPHOCYTES % (MANUAL) 13 % (16-48); METAMYELOCYTES % 2 % (0-0); MONOCYTES % (MANUAL) 16 % (0-11.0); NEUTROPHILS % (MANUAL) 69 (42-76)
--- NOTE | 2017-12-01 19:30 | NUR ---
TELE/RN NOTES: RECEIVED PT. ON MECHANICAL VENT TOLERATING SETTINGS WELL. OBTUNDED BUT EYES OPEN. NO FACIAL GRIMACES OR MOANING NOTED. W/ FAMILY MEMBER BY BEDSIDE. NO S/S OF RESPIRATORY DISTRESS. NO FACIAL GRIMACES OR MOANING NOTED. ON TELE MONITOR SR @ 96. W/ GTF OF GLUCERNA @ 60 CC/ HR TOLERATING WELL W/ NO RESIDUAL NOTED. HAS ROHITH MIDLINE G 20 PATENT AND INTACT W/ NO S/S OF INFECTION/INFILTRATION NOTED. MAINTAINED ASPIRATION PRECAUTION. CALL LIGHT W/ REACH. WILL CONTINUE TO MONITOR.
[2017-12-01 20:00] VITALS: BP 149/80
--- NOTE | 2017-12-01 20:03 | NUR ---
RECEIVED PT TRACH PORTEX 7 ON MECH VENT WITH NOTED SETTINGS. VENT ALARM SET AND AUDIBLE. VENT PLUGGED INTO RED OUTLET, AMU BAG AT BEDSIDE. SX'D MODERATE AMT OF PALE YELLOW THICK SECRETIONS. NO RESPIRATORY DISTRESS NOTED, WILL CONTINUE TO MONITOR.
[2017-12-01] MEDS: SENNOSIDES 8.6 MG TABLET GT SCH (21:38)
[2017-12-01] MEDS: INSULIN GLARGINE, 100 UNIT/ML CARTRIDGE SQ SCH (21:39)
[2017-12-02] VITALS: BP_SYST 114; BP_SYST 126; BP_DIAS 67; BP_DIAS 73
[2017-12-02] MEDS: CEFEPIME 2 GM in IV D5W 100 ML IV SCH ×2 (01:01→13:07)
[2017-12-02] MEDS: GLUCERNA 1.2 1,000 ML BOTTLE GT SCH ×2 (01:09→17:31)
[2017-12-02 04:00] VITALS: BP 125/71
[2017-12-02] MEDS: BLOOD SUGAR DIAGNOSTIC 1 EACH STRIP IN SCH ×4 (06:13→23:22)
[2017-12-02] MEDS: INSULIN REGULAR, HUMAN 100 UNIT/ML 3 ML VIAL SQ PRN ×5 (06:15→23:30)
[2017-12-02 06:47] LABS: BASOPHILS % (AUTO) 0.1 % (0.0-2.0); EOSINOPHILS % (AUTO) 3.9 % (0.0-6.0); HEMATOCRIT 26 % (39-51); HEMOGLOBIN 8.4 g/dL (13.5-17.5); LYMPHOCYTES # (AUTO) 1.5 /CMM (0.8-4.8); LYMPHOCYTES % (AUTO) 11.7 % (20.0-44.0); MEAN CORPUSCULAR HEMOGLOBIN 29 PG (26.0-33.0); MEAN CORPUSCULAR HGB CONC 33 g/dl (31.0-36.0); MEAN CORPUSCULAR VOLUME 88 fL (80-96); MONOCYTES # (AUTO) 1.3 /CMM (0.1-1.30); NEUTROPHILS # (AUTO) 9.5 /CMM (1.8-8.9); NEUTROPHILS % (AUTO) 74.3 % (43.0-81.0); PLATELET COUNT (AUTO) 275 /CMM (150-450); RDW COEFFICIENT OF VARIATION 17.3 (11.5-15.0); RED BLOOD CELL COUNT(AUTO) 2.93 MIL/uL (4.5-6.0); WHITE BLOOD COUNT (AUTO) 12.8 K/uL (4.3-11.0)
[2017-12-02 06:52] LABS: CALCIUM, SERUM 8.3 mg/dL (8.5-10.1); CREATININE 1.2 mg/dL (0.6-1.3); POTASSIUM 4.8 mmol/L (3.5-5.1)
--- NOTE | 2017-12-02 07:29 | NUR ---
TELE/RN NOTES: NO ACUTE CHANGES NOTED DURING THIS SHIFT. REPORT GIVEN TO AM NURSE FOR CORA.
--- NOTE | 2017-12-02 07:40 | NUR ---
RT PATIENT REC'D TRACHED ON [facility] VENT TAY WELL. VENT ALARMS CHECKED + AUDIBLE. CUFF PRESSURE CHECKED SNUFF BLENDER. PATIENT SUCTIONED WITH SMALL TO MOD AMT PALE SEMITHICK SECRETIONS. PATIENT STABLE, NON RESPONSIVE TO VERBAL COMMANDS, NO SOB NOTED. AMBU BAG AT [facility] Addendum: 12/02/17 at 1047 by DONATO REDDY RT Amended: Links added.
[2017-12-02 08:00] VITALS: BP 137/77
--- NOTE | 2017-12-02 08:00 | NUR ---
WIRE FRAME DIPPER NOTE PATIENT IN BED , ALL NEEDS ATTENDED ,WITH TRACH TO VENT SETTING ORDERED, ON TELE MONITOR, SR , ON G TUBE FEEDING ORDERED, KEEP HOB ELEVATED. NO RESIDUAL NOTED , LT UPPER ARM WITH MID LINE IN PLACE, BED IN LOWEST AND LOCKED POSITION, WILL CONT TO MONITOR CLOSELY, T 99.2 TYLENOL VIA G TUBE GIVEN ORDERED WILL CONT TO MONITOR CLOSELY
[2017-12-02] MEDS: ENOXAPARIN SODIUM 40 MG/0.4 ML DISP.SYRIN SQ SCH (08:27)
[2017-12-02] MEDS: PANTOPRAZOLE 40 MG VIAL IV SCH (08:27)
[2017-12-02] MEDS: ZINC SULFATE 220 MG CAPSULE GT SCH (08:27)
[2017-12-02] MEDS: LEVETIRACETAM SOL (5 ML) 100 MG/ML UDC GT SCH ×2 (08:27→16:37)
[2017-12-02] MEDS: LACTOBACILLUS RHAMNOSUS GG 1 EACH CAP.SPRINK PO SCH ×2 (08:27→16:38)
[2017-12-02] MEDS: ACETAMINOPHEN 325 MG TABLET PO PRN ×2 (08:28→14:49)
[2017-12-02] MEDS: DOCUSATE SODIUM LIQ 100 MG/10 ML UDC GT SCH (08:28)
[2017-12-02] MEDS: METOPROLOL TARTRATE 25 MG TABLET GT SCH ×2 (08:28→16:38)
[2017-12-02] MEDS: ASCORBIC ACID 500 MG TABLET GT SCH (08:29)
[2017-12-02] MEDS: MULTIVIT, IRON, MIN NO. 8, FA 1 TAB GT SCH (08:29)
--- NOTE | 2017-12-02 11:30 | NUR ---
GLASS RIBBON MACHINE OPERATOR NOTE ALL NEEDS ATTENDED, KEEP CLEAN DRY, CONDOM CATH CHANGED , NOT IN ACUTE DISTRESS
[2017-12-02 12:00] VITALS: BP 127/50
--- NOTE | 2017-12-02 13:31 | NUR ---
LCAC OPERATOR NOTE SEEN BY DR RAMIREZ CYLINDER WORKER ,STATED CONT THE SAME SETTING ON VENT
--- NOTE | 2017-12-02 14:54 | NUR ---
RT PATIENT APPEARS TO SHOW SIGNS OF PAIN. RN NOTIFIED THAT PATIENT IS LAYING ON HIS WOUNDS AND SHOULD BE REPOSITIONED AND POSSIBLY MEDICATED FOR PAIN. B/S CLEAR. PATIENT SUCTIONED WITH SMALL AMT SECRETIONS. PATIENT STABLE FROM A RESPIRATORY STAND POINT. Addendum: 12/02/17 at 1457 by DONATO REDDY RT Amended: Links added.
[2017-12-02] MEDS: LORAZEPAM 1 MG TABLET GT PRN (14:56)
--- NOTE | 2017-12-02 15:00 | NUR ---
PRINTED CIRCUIT BOARDS LAMINATOR NOTE NOTED INCREASED RR AND RESTLESS ATIVAN AND TYLENOL, FOR PAIN GIVEN BY G TUBE ,REPOSITION DONE , KEEP CLEAN DRY , WILL CONT TO MONITOR CLOSELY
[2017-12-02] MEDS: LEVOFLOXACIN 750 MG /D5W 150ML 750 MG in PREMIX 1 EA IV SCH (15:07)
[2017-12-02 16:00] VITALS: BP 132/56
--- NOTE | 2017-12-02 17:00 | NUR ---
FRENCH TUTOR NOTE RESTING COMFORTABLY AT THIS TIME ,ALL NEEDS ATTENDED . RR 20 ,FAMILY AT BEDSIDE, WILL CONT TO,MONITOR CLOSELY
--- NOTE | 2017-12-02 18:29 | NUR ---
WOOL CARDER NOTE CONT ON G TUBE FEEDING ORDERED ,KEEP HOB ELEVATED AT ALL TIME , WITH TRACH TO VENT SETTING ORDERED , TURN REPOSITION Q2 HOUR , WILL CONT TO MONITOR CLOSELY
--- NOTE | 2017-12-02 19:20 | NUR ---
PUMP INSTALLER NOTES, RECEIVED PT. IN BED, ON MECHANICAL VENTILATOR TOLERATING SETTINGS WELL, AWAKE, BUT NOT ALERT WITH EYES OPEN, NON VERBAL,NO S/S OF SOB/ACUTE DISTRESS NOTED AT THIS TIME, NO FACIAL GRIMACING OR MOANING NOTED. FAMILY MEMBER AT BEDSIDE, ON TELE MONITOR SR AT 90'S AT THIS TIME, GTF RUNNING WELL, AND PATIENT TOLERATING WELL W/ NO RESIDUAL THIS TIME, ROHITH MIDLINE G 20 PATENT AND INTACT AD PATENT AT THIS TIME,HOB ELEVATED AT ALL TIMES FOR ASPIRATION PRECAUTION. CALL LIGHT W/ REACH. WILL CONTINUE TO MONITOR CLOSELY.
[2017-12-02 20:00] VITALS: BP 115/63
[2017-12-02] MEDS: SENNOSIDES 8.6 MG TABLET GT SCH (21:15)
[2017-12-02] MEDS: INSULIN GLARGINE, 100 UNIT/ML CARTRIDGE SQ SCH (21:17)
--- NOTE | 2017-12-02 22:20 | NUR ---
SHEEP HERDER NOTES, ENDORSED PATENT TO HEMA VALDEZ IN STABLE CONDITION AT THIS TIME FOR CONTINUATION OF CARE.
--- NOTE | 2017-12-02 22:31 | NUR ---
BIOSOLIDS MANAGEMENT TECHNICIAN INITIAL NOTE PT IN BED NON VERBAL. ON VENT TOLERATING SETTINGS WELL, NO SIGNS OF SOB OR DISTRESS. FAMILY AT BEDSIDE. IV ACCESS INTACT AND PATENT. G-TUBE INTACT WITH FEEING RUNNING. BED IS IN LOW AND LOCKED POSITION. WILL CONTINUE TO MONITOR PT.
[2017-12-03] VITALS (7 sets, daily range): BP systolic 114–144; BP diastolic 55–79
[2017-12-03] MEDS: CEFEPIME 2 GM in IV D5W 100 ML IV SCH ×2 (01:05→14:24)
[2017-12-03] MEDS: BLOOD SUGAR DIAGNOSTIC 1 EACH STRIP IN SCH ×4 (05:07→23:45)
[2017-12-03] MEDS: INSULIN REGULAR, HUMAN 100 UNIT/ML 3 ML VIAL SQ PRN ×2 (05:12→23:45)
[2017-12-03 06:19] LABS: BASOPHILS # (AUTO) 0.1 /CMM (0.0-0.2); BASOPHILS % (AUTO) 0.4 % (0.0-2.0); EOSINOPHILS % (AUTO) 6.4 % (0.0-6.0); HEMATOCRIT 23 % (39-51); HEMOGLOBIN 7.6 g/dL (13.5-17.5); LYMPHOCYTES # (AUTO) 1.5 /CMM (0.8-4.8); LYMPHOCYTES % (AUTO) 10.6 % (20.0-44.0); MEAN CORPUSCULAR HEMOGLOBIN 28 PG (26.0-33.0); MEAN CORPUSCULAR HGB CONC 33 g/dl (31.0-36.0); MEAN CORPUSCULAR VOLUME 86 fL (80-96); NEUTROPHILS # (AUTO) 10.4 /CMM (1.8-8.9); NEUTROPHILS % (AUTO) 75.6 % (43.0-81.0); PLATELET COUNT (AUTO) 250 /CMM (150-450); RDW COEFFICIENT OF VARIATION 16.4 (11.5-15.0); RED BLOOD CELL COUNT(AUTO) 2.67 MIL/uL (4.5-6.0); WHITE BLOOD COUNT (AUTO) 13.9 K/uL (4.3-11.0)
--- NOTE | 2017-12-03 06:29 | NUR ---
UNIVERSITY TEACHER CLOSING NOTE PT IS IN BED RESTING, OPENS EYES. FAMILY AT BEDSIDE. ON VENT TOLERATING SETTINGS WELL, NO SIGNS OF SOB OR DISTRESS. NEW CONDOM CATH WAS APPLIED. IV ACCESS IS INTACT AND PATENT. G-TUBE IS INTACT WITH FEEDING. WOUND CARE WAS RENDERED. ALL NEEDS WERE ANTICIPATED AND MET. BED IS IN LOW AND LOCKED POSITION, BED ALARM IS ON. WILL ENDORSE TO DAY SHIFT
[2017-12-03 06:32] LABS: CALCIUM, SERUM 8.7 mg/dL (8.5-10.1); CREATININE 1.2 mg/dL (0.6-1.3); POTASSIUM 4.3 mmol/L (3.5-5.1)
--- NOTE | 2017-12-03 07:30 | NUR ---
DIE ASSEMBLER INITIAL NOTE PT IN BED NON VERBAL. ON VENT TOLERATING SETTINGS WELL, NO SIGNS OF SOB OR DISTRESS. ON TELE MONITORING 86 HR, IV ACCESS INTACT AND PATENT. G-TUBE FEEDING RUNNING. BED IS IN LOW AND LOCKED POSITION. WILL CONTINUE TO MONITOR.
--- NOTE | 2017-12-03 07:48 | NUR ---
RT PATIENT REC'D TRACHED ON [facility] VENT WITH ORDERED SETTINGS TOLERATED WELL. VENT ALARMS CHECKED + AUDIBLE. VENT PLUGGED INTO RED OUTLET. CUFF PRESSURE CHECKED DRILLER OPERATOR. TRACH SECURE AND IN PROPER POSITION VIA FOAM TRACH TIE. PATIENT APPEARS COMFORTABLE AND IN NO DISTRESS AT THIS TIME. PATIENT SUCTIONED WITH SMALL TO MODERATE AMOUNT OF PALE SEMI-THICK SECRETIONS. B/S DIM COARSE. AMBU BAG AT [facility]. CONTINUE CURRENT PLAN OF RESPIRATORY CARE. Addendum: 12/03/17 at 0846 by DONATO REDDY RT Amended: Links added.
[2017-12-03] MEDS: MULTIVIT, IRON, MIN NO. 8, FA 1 TAB GT SCH (08:32)
[2017-12-03] MEDS: LACTOBACILLUS RHAMNOSUS GG 1 EACH CAP.SPRINK PO SCH ×2 (08:32→17:21)
[2017-12-03] MEDS: ZINC SULFATE 220 MG CAPSULE GT SCH (08:32)
[2017-12-03] MEDS: DOCUSATE SODIUM LIQ 100 MG/10 ML UDC GT SCH (08:32)
[2017-12-03] MEDS: LEVETIRACETAM SOL (5 ML) 100 MG/ML UDC GT SCH ×2 (08:32→17:21)
[2017-12-03] MEDS: PANTOPRAZOLE 40 MG VIAL IV SCH (08:32)
[2017-12-03] MEDS: METOPROLOL TARTRATE 25 MG TABLET GT SCH ×2 (08:32→17:21)
[2017-12-03] MEDS: ASCORBIC ACID 500 MG TABLET GT SCH (08:32)
[2017-12-03] MEDS: ENOXAPARIN SODIUM 40 MG/0.4 ML DISP.SYRIN SQ SCH (09:00)
--- NOTE | 2017-12-03 09:00 | NUR ---
COMPUTER SYSTEMS CONSULTANT NOTES PATIENT GTUBE RIPPED ON SIDE UPON INSERTION OF MEDICATIONS, GI LUBRICATION TECHNICIAN JAY MADE AWARE.
[2017-12-03] MEDS: LEVOFLOXACIN 750 MG /D5W 150ML 750 MG in PREMIX 1 EA IV SCH (17:20)
[2017-12-03] MEDS: GLUCERNA 1.2 1,000 ML BOTTLE GT SCH (17:36)
--- NOTE | 2017-12-03 18:39 | NUR ---
TRANSPORTATION MODELER END NOTES PATIENT IS RESTING IN BED, ALL NEEDS MET, NO GTUBE PLACED, NO ACUTE CHANGES, FAMILY AT BEDSIDE. WILL ENDORSE TO CORDUROY CUTTING SUPERVISOR FOR CONTINUITY OF CARE.
--- NOTE | 2017-12-03 19:20 | NUR ---
SIGNWRITER NOTES, RECEIVED PT. IN BED, ON MECHANICAL VENTILATOR TOLERATING SETTINGS WELL, AWAKE, BUT NOT ALERT WITH EYES OPEN, NON VERBAL,NO S/S OF SOB/ACUTE DISTRESS NOTED AT THIS TIME WITH OPTIMAL SATURATION LEVEL 100%, FAMILY MEMBER AT BEDSIDE, ON TELE MONITOR SR AT 80'S AT THIS TIME, GTF RUNNING WELL, AND PATIENT TOLERATING WELL W/ NO RESIDUAL THIS TIME, ROHITH MIDLINE G 20 PATENT AND INTACT AND PATENT AT THIS TIME, NO S/S OF INFILTRATION NOTED, HOB ELEVATED AT ALL TIMES FOR ASPIRATION PRECAUTION. CALL LIGHT W/ REACH. WILL CONTINUE TO MONITOR CLOSELY.
[2017-12-03] MEDS: SENNOSIDES 8.6 MG TABLET GT SCH (21:12)
[2017-12-03] MEDS: INSULIN GLARGINE, 100 UNIT/ML CARTRIDGE SQ SCH (21:14)
[2017-12-04] VITALS: BP 112/70
[2017-12-04] MEDS: CEFEPIME 2 GM in IV D5W 100 ML IV SCH ×2 (01:38→13:14)
[2017-12-04 04:00] VITALS: BP 110/69
[2017-12-04] MEDS: BLOOD SUGAR DIAGNOSTIC 1 EACH STRIP IN SCH ×3 (05:23→17:21)
[2017-12-04] MEDS: INSULIN REGULAR, HUMAN 100 UNIT/ML 3 ML VIAL SQ PRN ×2 (05:24→17:21)
--- NOTE | 2017-12-04 06:21 | NUR ---
RUBBER MOLDER NOTES, PATIENT IN BED WITH EYES OPEN AT THIS TIME, ON MECHANICAL VENTILATOR TOLERATING SETTINGS WELL, NON VERBAL, NO S/S OF SOB/ACUTE DISTRESS NOTED AT THIS TIME WITH OPTIMAL SATURATION LEVEL 100%, FAMILY MEMBER AT BEDSIDE, ON TELE MONITOR SR AT 90S AT THIS TIME, GTF RUNNING WELL, AND PATIENT TOLERATING WELL W/ NO RESIDUAL THIS TIME, ROHITH MIDLINE G 20 PATENT AND INTACT AND PATENT AT THIS TIME, NO S/S OF INFILTRATION NOTED, HOB ELEVATED AT ALL TIMES FOR ASPIRATION PRECAUTION. NO SIGNIFICANT CHANGE OF CONDITION DURING THE NIGHT, CALL LIGHT W/ REACH, KEPT DRY AND CLEAN, AND WELL REPOSITIONED AT THIS TIME, WILL ENDORSE CONTINUITY OF CARE TO ONCOMING NURSE.
--- NOTE | 2017-12-04 07:00 | NUR ---
RN NOTES RECEIVED PT ON BED, OBTUNDED, EYES OPEN, VENT/ TRACH DEPENDENT, TRACH CARE DONE, TOLERATING CURRENT VENT SETTING WELL, NO DISTRESS NOTED, ON TELE SR HR IN 90'S ,TF GLUCERNA AT 60CC/HR RUNNING VIA GT , TOLERATING WELL, NO RESIDUAL NOTED,HOB ELEVATED AT ALL TIMES FOR ASPIRATION PRECAUTION, L UPPER ARM MIDLINE G 20 AND R HAND IV G 22 SITES , CDI, CALL LIGHT WITHIN EASY REACH.BED LOCKED AND IN LOWEST POSITION , WILL CONTINUE TO MONITOR CLOSELY.
[2017-12-04 08:00] VITALS: BP 140/74
[2017-12-04] MEDS: PANTOPRAZOLE 40 MG VIAL IV SCH (08:03)
[2017-12-04] MEDS: DOCUSATE SODIUM LIQ 100 MG/10 ML UDC GT SCH (08:03)
[2017-12-04] MEDS: LEVETIRACETAM SOL (5 ML) 100 MG/ML UDC GT SCH ×2 (08:03→16:20)
[2017-12-04] MEDS: ZINC SULFATE 220 MG CAPSULE GT SCH (08:03)
[2017-12-04] MEDS: METOPROLOL TARTRATE 25 MG TABLET GT SCH ×2 (08:04→16:23)
[2017-12-04] MEDS: MULTIVIT, IRON, MIN NO. 8, FA 1 TAB GT SCH (08:04)
[2017-12-04] MEDS: ASCORBIC ACID 500 MG TABLET GT SCH (08:04)
[2017-12-04] MEDS: ENOXAPARIN SODIUM 40 MG/0.4 ML DISP.SYRIN SQ SCH (08:04)
[2017-12-04] MEDS: LACTOBACILLUS RHAMNOSUS GG 1 EACH CAP.SPRINK PO SCH ×2 (08:06→16:20)
--- NOTE | 2017-12-04 09:32 | NUR ---
RT RECEIVED PT TRACH ON VENT WITH NOTED SETTINGS, ORCHARD MANAGER DONE AND TRACH IS SECURE. VENT PLUGGED IN RED OUTLET AND AMBU BAG NOTED HOB. SX WITH MOD THK YELLOW SECRETIONS. NO SOB OR DISTRESS NOTED AT THIS TIME, WILL CONTINUE TO MONITOR T/O SHIFT.
[2017-12-04 12:00] VITALS: BP 149/75
--- NOTE | 2017-12-04 12:00 | NUR ---
RN NOTE VSS STABLE , TRACH SUCTIONING DONE, TOLERATING TF WELL, CONTINUE TO MONITOR .
[2017-12-04] MEDS: GLUCERNA 1.2 1,000 ML BOTTLE GT SCH (13:21)
[2017-12-04] MEDS: LEVOFLOXACIN 750 MG /D5W 150ML 750 MG in PREMIX 1 EA IV SCH (15:44)
[2017-12-04 16:00] VITALS: BP 127/64
--- NOTE | 2017-12-04 18:16 | NUR ---
RN NOTES NO SIGNIFICANT CHANGES NOTED ON THIS SHIFT , DILAN TF WELL, R HAND AND L UPPER ARM MIDLINE SITE CDI, SR UP x3, CALL LIGHT WITHIN EASY REACH, WILL ENDORSE TO RAILCAR SWITCHER NURSE FOR CORA .
[2017-12-04 20:00] VITALS: BP 133/68
--- NOTE | 2017-12-04 20:10 | NUR ---
LICENSED INVESTMENT SALES ASSISTANT NOTES RECEIVED REPORT FROM LETY GARRIDO. PATIENT OBTUNDED, OPEN/CLOSES EYES SPONTANEOUSLY. BREATHING EVEN & UNLABORED W/ TRACH INTACT & TOLERATING VENT SETTINGS AC 14, TV 500, FIO2 40%, PEEP 5. ON TELE W/ SINUS RHYTHM, HR 80S. NO RESPIRATORY OR CARDIAC DISTRESS NOTED. RIGHT HAND IV #22 & LEFT UPPER ARM MIDLINE INTACT & PATENT W/ DRESSING CDI, SALINE LOCKED. G-TUBE FLUSHING WELL W/ GTF RUNNING @ 60 ML/HR. NO RESIDUAL NOTED @ THIS TIME. CONDOM INTACT & DRAINING YELLOW URINE. NO S/S OF PAIN OR DISCOMFORT @ THIS TIME. SAFETY MEASURES IN PLACE W/ BED ALARM ON. FAMILY @ BEDSIDE. WILL CONTINUE TO MONITOR.
[2017-12-04] MEDS: SENNOSIDES 8.6 MG TABLET GT SCH (22:20)
[2017-12-04] MEDS: INSULIN GLARGINE, 100 UNIT/ML CARTRIDGE SQ SCH (22:31)
[2017-12-05] VITALS (13 sets, daily range): BP systolic 107–149; BP diastolic 59–75
[2017-12-05] MEDS: BLOOD SUGAR DIAGNOSTIC 1 EACH STRIP IN SCH ×4 (00:03→17:25)
[2017-12-05] MEDS: INSULIN REGULAR, HUMAN 100 UNIT/ML 3 ML VIAL SQ PRN ×2 (00:06→05:59)
[2017-12-05] MEDS: CEFEPIME 2 GM in IV D5W 100 ML IV SCH ×2 (02:43→13:37)
[2017-12-05 07:03] LABS: BASOPHILS % (AUTO) 0.3 % (0.0-2.0); EOSINOPHILS % (AUTO) 5.9 % (0.0-6.0); HEMATOCRIT 22 % (39-51); HEMOGLOBIN 7.2 g/dL (13.5-17.5); LYMPHOCYTES # (AUTO) 1.4 /CMM (0.8-4.8); LYMPHOCYTES % (AUTO) 13.4 % (20.0-44.0); MEAN CORPUSCULAR HEMOGLOBIN 29 PG (26.0-33.0); MEAN CORPUSCULAR HGB CONC 33 g/dl (31.0-36.0); MEAN CORPUSCULAR VOLUME 87 fL (80-96); MONOCYTES # (AUTO) 0.8 /CMM (0.1-1.30); MONOCYTES % (AUTO) 8.1 % (2.0-12.0); NEUTROPHILS # (AUTO) 7.3 /CMM (1.8-8.9); NEUTROPHILS % (AUTO) 72.3 % (43.0-81.0); PLATELET COUNT (AUTO) 296 /CMM (150-450); RED BLOOD CELL COUNT(AUTO) 2.51 MIL/uL (4.5-6.0); WHITE BLOOD COUNT (AUTO) 10.1 K/uL (4.3-11.0)
[2017-12-05 07:25] LABS: CALCIUM, SERUM 8.7 mg/dL (8.5-10.1); CREATININE 1.3 mg/dL (0.6-1.3); POTASSIUM 4.5 mmol/L (3.5-5.1)
--- NOTE | 2017-12-05 07:25 | NUR ---
RT PT RECEIVED WITH A PORTEX 7 TRACH ON THE VENT WITH NOTED SETTINGS. PT IS AWAKE BUT DOES NOT FOLLOW COMMANDS. VENT ALARMS ARE SET AND AUDIBLE WITH BVM BY BEDSIDE. OENOLOGIST CUFF PRESSURE NOTED. VENT IS PLUGGED INTO RED OUTLET. PT SX'D MODERATE THICK PALE YELLOW SECRETIONS. NO RESPIRATORY DISTRESS NOTED AT THIS TIME, WILL CONTINUE TO MONITOR. Addendum: 12/05/17 at 1047 by ANGELLA RASCON RT Amended: Links added.
--- NOTE | 2017-12-05 07:30 | NUR ---
ACOUSTICAL TILE DRILL PRESS OPERATOR INITIAL NOTES: RECEIVED PT IN BED, OBTUNDED BUT EYES OPEN. VENT TRACH PT, PT TOLERATING VENT SETTINGS WELL. O2 SATURATION 100% NO SOB OR RESP DISTRESS NOTED. AMBU BAG AND BACK UP TRACH AT BEDSIDE. GT FEEDING RUNNING AT 60ML/HR, TOLERATING WELL. NO RESIDUAL NOTED. DIAPER IN PLACE. DRESSING TO DTI ON SACRUM IN PLACE. IV TO R HAND AND ROHITH MIDLINE IN PLACE. PATENT AND INTACT. BED IN LOW LOCKED POSITION, CALL LIGHT WITHIN REACH. PLAN OF CARE DISCUSSED WITH PT. WILL CONTINUE TO MONITOR.
[2017-12-05] MEDS: LACTOBACILLUS RHAMNOSUS GG 1 EACH CAP.SPRINK PO SCH ×2 (08:12→16:24)
[2017-12-05] MEDS: DOCUSATE SODIUM LIQ 100 MG/10 ML UDC GT SCH (08:12)
[2017-12-05] MEDS: ASCORBIC ACID 500 MG TABLET GT SCH (08:13)
[2017-12-05] MEDS: MULTIVIT, IRON, MIN NO. 8, FA 1 TAB GT SCH (08:13)
[2017-12-05] MEDS: LEVETIRACETAM SOL (5 ML) 100 MG/ML UDC GT SCH ×2 (08:13→16:24)
[2017-12-05] MEDS: PANTOPRAZOLE 40 MG VIAL IV SCH (08:13)
[2017-12-05] MEDS: ZINC SULFATE 220 MG CAPSULE GT SCH (08:13)
[2017-12-05] MEDS: METOPROLOL TARTRATE 25 MG TABLET GT SCH ×2 (08:13→16:25)
[2017-12-05] MEDS: ENOXAPARIN SODIUM 40 MG/0.4 ML DISP.SYRIN SQ SCH (08:15)
[2017-12-05] MEDS: GLUCERNA 1.2 1,000 ML BOTTLE GT SCH (09:50)
[2017-12-05] MEDS ORDERED: LEVOFLOXACIN (750 MG) 750 MG TABLET GT SCH (16:00)
[2017-12-05] MEDS: ACETAMINOPHEN 325 MG TABLET PO PRN (16:24)
--- NOTE | 2017-12-05 17:00 | NUR ---
BLOOD TRANSFUSION STARTED. 1 UNIT PRBC FOR HGB 7.2
--- NOTE | 2017-12-05 18:43 | NUR ---
RT VENT PLUGGED INTO WHITE OUTLET AT THIS TIME DUE TO RED OUTLET BEING NON OPERATIONAL. VENT IS RUNNING PROPERLY WITH EXTERNAL POWER FROM WHITE OUTLET. ENGINEERING WAS CALLED AND CHARGE NURSE AWARE OF SITUATION. ONCOMING RESPIRATORY THERAPIST NOTIFIED AND AWARE OF SITUATION. NO RESPIRATORY DISTRESS NOTED AT THIS TIME. Addendum: 12/05/17 at 1843 by ANGELLA RASCON RT Amended: Links added.
--- NOTE | 2017-12-05 19:00 | NUR ---
FOOTBALL SCOUT END NOTES: PT REMAINS IN BED, OBTUNDED BUT EYES OPEN. BLOOD TRANSFUSION STILL RUNNING, PT TOLERATING WELL. VS REMAIN STABLE THROUGHOUT. VENT/TRACH, TOLERATING SETTINGS WELL. O2 SATURATION REMAINS 99-100%. GT FEEDING CONNECTED AND RUNNING AT 60ML/HR, NO RESIDUAL NOTED. PT CLEANED AND REPOSITIONED. NO SIGNS/SYMPTOMS OF PAIN OR DISCOMFORT AT THIS TIME. BED IN LOW LOCKED POSITION, CALL LIGHT WITHIN REACH. WILL ENDORSE TO PM SHIFT FOR CONTINUITY OF CARE.
--- NOTE | 2017-12-05 19:46 | NUR ---
READING TEACHER NOTES RECEIVED REPORT FROM BREANNA GARRIDO. PATIENT OBTUNDED, OPEN/CLOSES EYES SPONTANEOUSLY. BREATHING EVEN & UNLABORED W/ TRACH INTACT & TOLERATING VENT SETTINGS AC 14, TV 500, FIO2 40%, PEEP 5. ON TELE W/ SINUS RHYTHM, HR 70S. NO RESPIRATORY OR CARDIAC DISTRESS NOTED. RIGHT HAND IV #22 & LEFT UPPER ARM MIDLINE INTACT & PATENT W/ DRESSING CDI & PRBC INFUSING WELL THROUGH LEFT UPPER ARM MIDLINE. G-TUBE FLUSHING WELL W/ GTF RUNNING @ 60 ML/HR. NO RESIDUAL NOTED @ THIS TIME. NO S/S OF PAIN OR DISCOMFORT @ THIS TIME. SAFETY MEASURES IN PLACE W/ BED ALARM ON. FAMILY @ BEDSIDE. WILL CONTINUE TO MONITOR.
--- NOTE | 2017-12-05 20:30 | NUR ---
CHAIN MAKER HAND NOTES PRBC TRANSFUSION ENDED W/ NO ADVERSE EFFECTS NOTED. VSS.
[2017-12-05] MEDS: SENNOSIDES 8.6 MG TABLET GT SCH (22:00)
[2017-12-05] MEDS: INSULIN GLARGINE, 100 UNIT/ML CARTRIDGE SQ SCH (22:38)
[2017-12-06] VITALS: BP 132/75
[2017-12-06] MEDS: INSULIN REGULAR, HUMAN 100 UNIT/ML 3 ML VIAL SQ PRN ×3 (00:22→12:03)
[2017-12-06] MEDS: BLOOD SUGAR DIAGNOSTIC 1 EACH STRIP IN SCH ×3 (00:23→11:57)
[2017-12-06] MEDS: CEFEPIME 2 GM in IV D5W 100 ML IV SCH (02:40)
[2017-12-06 04:00] VITALS: BP 122/56
[2017-12-06 07:11] LABS: BASOPHILS % (AUTO) 0.4 % (0.0-2.0); EOSINOPHILS % (AUTO) 5.3 % (0.0-6.0); HEMATOCRIT 29 % (39-51); HEMOGLOBIN 9.6 g/dL (13.5-17.5); LYMPHOCYTES # (AUTO) 1.6 /CMM (0.8-4.8); MEAN CORPUSCULAR HEMOGLOBIN 30 PG (26.0-33.0); MEAN CORPUSCULAR HGB CONC 33 g/dl (31.0-36.0); MEAN CORPUSCULAR VOLUME 91 fL (80-96); MONOCYTES # (AUTO) 0.8 /CMM (0.1-1.30); MONOCYTES % (AUTO) 9.2 % (2.0-12.0); NEUTROPHILS # (AUTO) 6.3 /CMM (1.8-8.9); NEUTROPHILS % (AUTO) 68.1 % (43.0-81.0); PLATELET COUNT (AUTO) 320 /CMM (150-450); RDW COEFFICIENT OF VARIATION 18.2 (11.5-15.0); WHITE BLOOD COUNT (AUTO) 9.3 K/uL (4.3-11.0)
[2017-12-06 08:00] VITALS: BP 145/77
[2017-12-06] MEDS: METOPROLOL TARTRATE 25 MG TABLET GT SCH (10:01)
[2017-12-06] MEDS: ASCORBIC ACID 500 MG TABLET GT SCH (10:01)
[2017-12-06] MEDS: LEVETIRACETAM SOL (5 ML) 100 MG/ML UDC GT SCH (10:01)
[2017-12-06] MEDS: LORAZEPAM 1 MG TABLET GT PRN (10:01)
[2017-12-06] MEDS: DOCUSATE SODIUM LIQ 100 MG/10 ML UDC GT SCH (10:01)
[2017-12-06] MEDS: PANTOPRAZOLE 40 MG VIAL IV SCH (10:01)
[2017-12-06] MEDS: LACTOBACILLUS RHAMNOSUS GG 1 EACH CAP.SPRINK PO SCH (10:01)
[2017-12-06] MEDS: ZINC SULFATE 220 MG CAPSULE GT SCH (10:02)
[2017-12-06] MEDS: MULTIVIT, IRON, MIN NO. 8, FA 1 TAB GT SCH (10:02)
[2017-12-06] MEDS: ENOXAPARIN SODIUM 40 MG/0.4 ML DISP.SYRIN SQ SCH (10:04)
[2017-12-06 12:00] VITALS: BP 130/74
--- NOTE | 2017-12-06 14:30 | NUR ---
RN CLOSING NOTE PATIENT DISCHARGED TO [facility]. PAPERWORK COMPLETED AND SIGNED. PICTURES TAKEN. ID AND IV REMOVED. LEFT VIA AMBULANCE. FAMILY NOTIFIED.
== END 2017-12-06 15:45 | DRG 870 ==
LOC: ER 08:20 → ICU 11:09 → TELE-TD 11-27 17:48 → TELE1 11-29 19:01
PROVIDERS: ADMIT Internal Medicine; ATTEND Internal Medicine
PROC: 5A1955Z Respiratory Ventilation, Greater than 96 Consecutive Hours (ICD-10-PCS; principal; 2017-11-25)
PROC: 06HY33Z Insertion of Infusion Device into Lower Vein, Percutaneous Approach (ICD-10-PCS; 2017-11-25)
PROC: 30233N1 Transfusion of Nonautologous Red Blood Cells into Peripheral Vein, Percutaneous Approach (ICD-10-PCS; 2017-11-27)
PROC: 05HY33Z Insertion of Infusion Device into Upper Vein, Percutaneous Approach (ICD-10-PCS; 2017-12-01)
PROC: 0D20XUZ Change Feeding Device in Upper Intestinal Tract, External Approach (ICD-10-PCS; 2017-12-03)
DX: A41.9 Sepsis, unspecified organism (principal); G93.40 Encephalopathy, unspecified; J96.20 Acute and chronic respiratory failure, unspecified whether with hypoxia or hypercapnia; J15.1 Pneumonia due to Pseudomonas; J15.6 Pneumonia due to other Gram-negative bacteria; N17.0 Acute kidney failure with tubular necrosis; R65.21 Severe sepsis with septic shock; Z99.11 Dependence on respirator [ventilator] status; E44.0 Moderate protein-calorie malnutrition; D68.59 Other primary thrombophilia; Z43.1 Encounter for attention to gastrostomy; Z93.0 Tracheostomy status; D72.829 Elevated white blood cell count, unspecified; D64.9 Anemia, unspecified; Z86.73 Personal history of transient ischemic attack (TIA), and cerebral infarction without residual deficits; G40.909 Epilepsy, unspecified, not intractable, without status epilepticus; E87.6 Hypokalemia; E83.39 Other disorders of phosphorus metabolism; E78.5 Hyperlipidemia, unspecified; E78.1 Pure hyperglyceridemia; R13.10 Dysphagia, unspecified; E11.9 Type 2 diabetes mellitus without complications; K21.9 Gastro-esophageal reflux disease without esophagitis; Z68.22 Body mass index [BMI] 22.0-22.9, adult; Z74.01 Bed confinement status; I25.10 Atherosclerotic heart disease of native coronary artery without angina pectoris; L98.8 Other specified disorders of the skin and subcutaneous tissue; L89.150 Pressure ulcer of sacral region, unstageable; E83.42 Hypomagnesemia; I50.9 Heart failure, unspecified; I11.0 Hypertensive heart disease with heart failure
CPT/HCPCS: 31720; 36415; 36569; 36600; 71045-TC; 80048-TC; 80053-TC; 80076-TC; 80202-TC; 81000-TC; 82728-TC; 82803-TC; 82962-TC; 83540-TC; 83605-TC; 83735-TC; 84100-TC; 84439-TC; 84443-TC; 84484-TC; 85025-TC; 85730-TC; 86850-TC; 86921-TC; 87040-TC; 87070-TC; 87081-TC; 87086-TC; 87186-TC; 93307-TC; 94002-TC; 94003-TC; 94640-TC; 94760-TC; 94762-TC; A4216; A4349; A4606; A6403; C1751; C9113; J0692; J1650; J1815; J1953; J1956; J2185; J2405; J2916; J3370; J3475; J3490; J7030; J7050; J7060; P9016-BL; Z7610

== ENCOUNTER 2018-06-25 20:18 | Inpatient (IN) | payer MEDICARE, MEDICAID ==
[~2018-06-25] VITALS: Ht 172.7 cm; Wt 56.2 kg
[~2018-06-25 20:18] MED LIST changes: -ALBU2.5V38 IH; -ALBU2.5V38 NEB; +AMIN30LI2 GT; +ASCO500T10 GT; -Blood Sugar Diagnostic IN; -CLOT15CR35 TP; +INSU100V11 SQ; -IPRA0.2S9 IH; +LEVE100S GT; +LORA1TAB GT; +METF-440 GT; -METF500T6 GT; -MINE3.5O EACHEYE; +MULT-213 PO; -NUT.100029 GT; +NUT.237L30 GT; -PHEN100C4 PO; -PIPE3.376 IV; +SENN-168 GT; -SODI100010 GT; +SODI100037 GT; -VANC500F2 IV; -VANC500V GT; +ZINC220T GT
--- NOTE | 2018-06-25 20:20 | NUR ---
BB AMBULANCE FROM [facility] FOR GTUBE MALFUNCTION. PT ON VENT OPEN EYES ONLY, RR EVEN & UNLABORED, NO RESP DISTRESS NOTED @ THIS TIME. AWAITING EVAL BY MD/PA.
--- NOTE | 2018-06-25 20:30 | NUR ---
DR. PORRAS REPLACED GTUBE, PT TAY WELL.
[2018-06-25] MEDS ORDERED: DIATR MEGLU/DIATRIZOATE SODIUM 30 ML BOTTLE (GASTROGRAPHIN) ONE (20:43)
--- NOTE | 2018-06-25 20:53 | NUR ---
CALLED [facility] FOR TRANPORT ETA OF [phone] WAS GIVEN. TRIP#[id number]
--- NOTE | 2018-06-25 22:30 | NUR ---
PT PENDING TRANSFER TO [facility]. PT HR 127, DR. LOPEZ AWARE & CANCELLED TRANS @ THIS TIME.
[2018-06-25] MEDS ORDERED: IV NS 0.9% 500 ML BAG IV ONE (23:00)
--- NOTE | 2018-06-25 23:00 | NUR ---
LABS DRAWN & SENT TO LAB.
[2018-06-25 23:10] VITALS: BP 131/94
[2018-06-25 23:22] LABS: BASOPHILS # (AUTO) 0.1 /CMM (0.0-0.2); EOSINOPHILS % (AUTO) 3.6 % (0.0-6.0); HEMATOCRIT 37 % (39-51); HEMOGLOBIN 12.4 g/dL (13.5-17.5); LYMPHOCYTES % (AUTO) 18.5 % (20.0-44.0); MEAN CORPUSCULAR HGB CONC 34 g/dl (31.0-36.0); MEAN CORPUSCULAR VOLUME 89 fL (80-96); MONOCYTES # (AUTO) 1.1 /CMM (0.1-1.30); MONOCYTES % (AUTO) 10.4 % (2.0-12.0); NEUTROPHILS # (AUTO) 7.1 /CMM (1.8-8.9); NEUTROPHILS % (AUTO) 66.5 % (43.0-81.0); PLATELET COUNT (AUTO) 416 /CMM (150-450); RED BLOOD CELL COUNT(AUTO) 4.08 MIL/uL (4.5-6.0); WHITE BLOOD COUNT (AUTO) 10.7 K/uL (4.3-11.0)
[2018-06-25 23:35] LABS: CALCIUM, SERUM 8.9 mg/dL (8.5-10.1); CARBON DIOXIDE 28 mmol/L (21-32); CHLORIDE 100 mmol/L (98-107); CREATININE 0.9 mg/dL (0.6-1.3); GLUCOSE 128 mg/dL (74-106); POTASSIUM 3.9 mmol/L (3.5-5.1); SODIUM SERUM 136 mmol/L (136-145); UREA NITROGEN, BLOOD 17 mg/dL (7-18)
[2018-06-25 23:41] LABS: ALANINE AMINOTRANSFERASE 20 U/L (12-78); ALBUMIN 3.1 g/dL (3.4-5.0); ALKALINE PHOSPHATASE 102 U/L (46-116); ASPARTATE AMINOTRANSFERASE 16 U/L (15-37); BILIRUBIN,TOTAL 0.3 mg/dL (0.2-1.0); TOTAL PROTEIN, SERUM 8.2 g/dL (6.4-8.2)
--- NOTE | 2018-06-25 23:53 | NUR ---
CALLED [facility] REP WAS PAGED.
[2018-06-26] MEDS ORDERED: IV NS 0.9% 250 ML IV ONE (00:13)
[2018-06-26] MEDS ORDERED: CT SWABBABLE VALVE TRANS SET 1 EA INFUS.SET MC ONE (00:13)
[2018-06-26] MEDS ORDERED: IOHEXOL-350 100 ML VIAL IV ONE (00:13)
--- NOTE | 2018-06-26 00:20 | NUR ---
PT LEFT FOR CT VIA [facility] WITH OUMAR RN/GABRIELAG AND DEWAYNE BARNES.
[2018-06-26 00:22] LABS: APPEARANCE,URINE CLEAR (CLEAR); BILIRUBIN,URINE NEGATIVE (NEGATIVE); BLOOD, URINE TRACE Ery/uL (NEGATIVE); COLOR,URINE YELLOW (YELLOW); KETONES,URINE NEGATIVE (NEGATIVE); LEUKOCYTE ESTERASE ,URINE NEGATIVE (NEGATIVE); NITRITE, URINE NEGATIVE (NEGATIVE); PROTEIN,URINE 3+ mg/dl (NEGATIVE); UGLUCOSE NEGATIVE (NEGATIVE); UROBILINOGEN,URINE 0.2 EU/dL (0.2)
[2018-06-26 00:37] LABS: BACTERIA,URINE None seen /HPF (None Seen); SQUAMOUS EPITHELIAL CELL,UR Few /HPF (None Seen); WBC,URINE 0-2 /HPF (0-3)
[2018-06-26 00:38] LABS: MUCUS,URINE Few /LPF (None Seen)
[2018-06-26] MEDS ORDERED: IPRA3AMP23 IH ×2 (01:54)
--- NOTE | 2018-06-26 02:17 | NUR ---
PT TO 3W VIA [facility] WITH RT AN RN.
[2018-06-26 02:30] VITALS: BP 147/87
--- NOTE | 2018-06-26 02:30 | NUR ---
RN Notes Patient admitted from ER via stretcher, pt is awake, non verbal with trach. No signs of distress and discomfort noted. IV access on left AC patent and intact. GT patent and intact. Attached to mechanical ventilator with settings in place and tolerated well. Tele monitor attached which reads sinus rhythm heart rate at 97 and sinus tach with heart rate at 110. Skin assessment with pictures taken and filed in the chart. Bed bath given, kept patient clean and dry. Will continue to monitor pt.
[2018-06-26] MEDS ORDERED: DEXTROSE 50%-WATER 50 ML DISP.SYRIN IV PRN (03:30)
[2018-06-26] MEDS ORDERED: ONDANSETRON HCL/PF 4 MG/2 ML VIAL IVP PRN (03:30)
[2018-06-26] MEDS ORDERED: NA PHOS,M-B/NA PHOS,DI-BA 1 EA ENEMA RC SCH (03:30)
[2018-06-26] MEDS ORDERED: Z GUARD REMEDY 2 OZ OINT TP PRN (03:30)
[2018-06-26] MEDS ORDERED: ZOLPIDEM TARTRATE 5 MG TABLET PO PRN (03:30)
[2018-06-26] MEDS ORDERED: ACETAMINOPHEN 325 MG TABLET PO PRN (03:30)
[2018-06-26] MEDS ORDERED: LEVOFLOXACIN 500 MG /D5W 100ML 100 ML IV ONE (03:46)
--- NOTE | 2018-06-26 03:50 | NUR ---
RN Notes Received pt asleep, on room air, no signs of distress and discomfort noted. IV access on left hand patent and intact with ongoing IVF infusing well. Kept bed in the lowest position, locked with 2 side rails up and call light with in reach. Will continue to monitor pt.
[2018-06-26] MEDS ORDERED: METOPROLOL TARTRATE 25 MG TABLET GT ONE (04:00)
[2018-06-26] MEDS ORDERED: LEVETIRACETAM SOL (5 ML) 100 MG/ML UDC GT ONE (04:00)
--- NOTE | 2018-06-26 04:05 | NUR ---
WRONG ENTRY, NOTES FOR ANOTHER PATIENT
[2018-06-26] MEDS: LEVOFLOXACIN 500 MG /D5W 100ML 500 MG in PREMIX 1 EA IV SCH (04:25)
[2018-06-26] MEDS: GLUCERNA 1.2 1,000 ML BOTTLE GT SCH (04:42)
[2018-06-26] MEDS: BLOOD SUGAR DIAGNOSTIC 1 EACH STRIP IN SCH ×4 (06:45→22:53)
[2018-06-26 07:06] LABS: BASOPHILS # (AUTO) 0.1 /CMM (0.0-0.2); BASOPHILS % (AUTO) 0.7 % (0.0-2.0); HEMATOCRIT 35 % (39-51); HEMOGLOBIN 11.7 g/dL (13.5-17.5); LYMPHOCYTES # (AUTO) 2.2 /CMM (0.8-4.8); LYMPHOCYTES % (AUTO) 23.3 % (20.0-44.0); MEAN CORPUSCULAR HGB CONC 33 g/dl (31.0-36.0); MEAN CORPUSCULAR VOLUME 90 fL (80-96); MONOCYTES # (AUTO) 1.5 /CMM (0.1-1.30); MONOCYTES % (AUTO) 16.2 % (2.0-12.0); NEUTROPHILS # (AUTO) 5.2 /CMM (1.8-8.9); NEUTROPHILS % (AUTO) 55.8 % (43.0-81.0); PLATELET COUNT (AUTO) 338 /CMM (150-450); RED BLOOD CELL COUNT(AUTO) 3.89 MIL/uL (4.5-6.0); WHITE BLOOD COUNT (AUTO) 9.4 K/uL (4.3-11.0)
[2018-06-26 07:27] LABS: CALCIUM, SERUM 8.5 mg/dL (8.5-10.1); CREATININE 0.9 mg/dL (0.6-1.3); MAGNESIUM 1.9 mg/dL (1.8-2.4); POTASSIUM 3.9 mmol/L (3.5-5.1)
--- NOTE | 2018-06-26 07:40 | NUR ---
RN NOTES Patient asleep, no signs of distress and discomfort noted, on mechanical vent and tolerated well. Telemonitor reads sinus tachy with heart rate at 108. GT intact with ongoing Glucerna 1.2 at 55 cc/hour and tolerated well. Turned and repositioned per protocol. Kept clean and dry. Endorsed to morning RN for continuity of care.
--- NOTE | 2018-06-26 07:56 | NUR ---
PT. RECEIVED ON VENT SUPPORT VIA TRACH WITH SETTINGS BELOW ORDER: AC 14 VT 500ML FIO2 40% PEEP +5 BREATH SOUNDS CLEAR BILATERAL, AMBUBAG @ HOB. Addendum: 06/26/18 at 0758 by MEI SHEIKH RT Amended: Links added.
[2018-06-26 08:00] VITALS: BP 134/88
--- NOTE | 2018-06-26 08:14 | NUR ---
BUSINESS ACCOUNT EXECUTIVE OPENING NOTE RECEIVED PATIENT IN BED. SLEEPING, AROUSED TO TACTILE STIMULI, RESPONDS WITH EYE OPENING ONLY/OBTUNDED. PATIENT WITH TRACHEOSTOMY ON MECHANICAL VENTILATION WITH SETTINGS ORDERED. IN NO APPARENT DISTRESS OR DISCOMFORT AT THIS TIME. RESPIRATIONS EVEN AND UNLABORED. ON TELE MONITORING WITH SINUS TACHY AT THIS TIME. G-TUBE IN PLACE, FEEDING RUNNING AT 55ML/HR, PLACEMENT CHECKED, IN TACT. LEFT AC 20G IVC SL. PATIENT KEPT CLEAN AND COMFORTABLE. ALL NEEDS ATTENDED, SAFETY MEASURES IN PLACE, BED IN LOW LOCKED POSITION SIDE RAILS UP X2, CALL LIGHT WITHIN EASY REACH. WILL CONTINUE TO MONITOR.
[2018-06-26 08:31] LABS: BAND % (MANUAL) 1 % (0.0-5.0); EOSINOPHILS % (MANUAL) 8 % (0-4); LYMPHOCYTES % (MANUAL) 20 % (16-48); METAMYELOCYTES % 1 % (0-0); MONOCYTES % (MANUAL) 11 % (0-11.0); MYELOCYTES % 1 % (0-0); NEUTROPHILS % (MANUAL) 58 (42-76)
[2018-06-26] MEDS: DOCUSATE SODIUM LIQ 100 MG/10 ML UDC GT SCH (08:43)
[2018-06-26] MEDS: SODIUM CHLORIDE 1000 MG TABLET.SOL GT SCH ×3 (08:43→17:10)
[2018-06-26] MEDS: ASCORBIC ACID 500 MG TABLET GT SCH (08:43)
[2018-06-26 12:00] VITALS: BP 146/80
[2018-06-26] MEDS: INSULIN REGULAR, HUMAN 100 UNIT/ML 3 ML VIAL SQ PRN ×3 (12:23→22:54)
[2018-06-26 16:00] VITALS: BP 134/76
[2018-06-26] MEDS: PROSOURCE / PROSTAT (PYXIS) 30 ML UDC GT SCH (17:10)
--- NOTE | 2018-06-26 19:15 | NUR ---
MS RN CLOSING NOTE RECEIVED PATIENT IN BED. SLEEPING, AROUSED TO TACTILE AND PHYSICAL STIMULI, RESPONDS WITH EYE OPENING ONLY/OBTUNDED. PATIENT WITH TRACHEOSTOMY PORTEX #7, ON MECHANICAL VENTILATION WITH SETTINGS ORDERED. IN NO APPARENT DISTRESS OR DISCOMFORT AT THIS TIME. RESPIRATIONS EVEN AND UNLABORED. ON TELE MONITORING WITH SINUS TACHY WITH HR OF 110 AT THIS TIME. G-TUBE IN PLACE, FEEDING RUNNING AT 55ML/HR, PLACEMENT CHECKED, INTACT PATENT, FEEDING TOLERATES, 3-5CC RESIDUAL. LEFT AC 20G IVC SL. PATENT AND INTACT. PATIENT KEPT CLEAN AND COMFORTABLE. ALL NEEDS ATTENDED, ORDERS RENDERED. PATIENT ON SARA MATTRESS, TURNED AND REPOSITIONED Q2 HRS. SAFETY MEASURES IN PLACE, BED IN LOW LOCKED POSITION SIDE RAILS UP X2, CALL LIGHT WITHIN EASY REACH. WILL ENDORSE TO PM NURSE FOR CORA.
--- NOTE | 2018-06-26 19:25 | NUR ---
TELE/RN NOTES RECEIVED PT. LYING IN BED RESTING WITH EYES CLOTHES. PT. IS OBTUNDED. RESPONDS TO TACTILE STIMULI. PT. IS VENT/TRACH DEPENDENT. BREATHING EVEN AND UNLABORED. NO SOB, RESPIRATORY DISTRESS OR S/S OF PAIN NOTED AT THIS TIME. PT. WITH EXTERNAL INSURANCE CHECKER PRESENT AND INTACT. CURRENT RHYTHM = SINUS TACHYCARDIA HR 103. PT. WITH LEFT AC 20 GAUGE IV SALINE LOCK PRESENT, PATENT AND INTACT. PT. WITH G-TUBE PRESENT, PATENT AND INTACT ADMINISTERING TO PT. GLUCERNA 1.2 @ 55 ML/HR. PT. TOLERATING FEEDING WELL. NO RESIDUAL NOTED AT THIS TIME. PT. WITH FAMILY MEMBER PRESENT AT BEDSIDE. BED LOCKED AND IN LOWEST POSITION, SIDE RAILS UP X3, BED ALARM ON, WILL CONTINUE TO MONITOR.
[2018-06-26 20:00] VITALS: BP 125/68
[2018-06-26] MEDS: SENNOSIDES 8.6 MG TABLET GT SCH (22:49)
[2018-06-26] MEDS: HYDROCODONE/APAP 5/325MG 1 EACH TABLET PO PRN (23:45)
[2018-06-26 23:58] VITALS: BP 131/91
[2018-06-27] MEDS: GLUCERNA 1.2 1,000 ML BOTTLE GT SCH ×2 (04:06→18:40)
[2018-06-27] MEDS: LEVOFLOXACIN 500 MG /D5W 100ML 500 MG in PREMIX 1 EA IV SCH (04:07)
[2018-06-27] MEDS: HYDROCODONE/APAP 5/325MG 1 EACH TABLET PO PRN (04:23)
--- NOTE | 2018-06-27 06:06 | NUR ---
TELE/RN NOTES RECEIVED PT. LYING IN BED RESTING WITH EYES CLOTHES. PT. IS OBTUNDED. RESPONDS TO TACTILE STIMULI. PT. IS VENT/TRACH DEPENDENT. BREATHING EVEN AND UNLABORED. NO SOB, RESPIRATORY DISTRESS OR S/S OF PAIN NOTED AT THIS TIME. PT. WITH EXTERNAL SNOWBOARDING INSTRUCTOR PRESENT AND INTACT. CURRENT RHYTHM = SINUS TACHYCARDIA HR 105. PT. WITH LEFT AC 20 GAUGE IV SALINE LOCK PRESENT, PATENT AND INTACT. PT. WITH G-TUBE PRESENT, PATENT AND INTACT ADMINISTERING TO PT. GLUCERNA 1.2 @ 55 ML/HR. PT. TOLERATING FEEDING WELL. NO RESIDUAL NOTED AT THIS TIME AND THROUGHOUT SHIFT. ALL PT. NEEDS MET. PT. OFFLOADED, TURNED AND REPOSITIONED Q2H AND NEEDED. BED LOCKED AND IN LOWEST POSITION, SIDE RAILS UP X3, BED ALARM ON, WILL ENDORSE TO DAYSHIFT NURSE FOR CONTINUITY OF CARE.
[2018-06-27 06:31] LABS: CALCIUM, SERUM 9.1 mg/dL (8.5-10.1); CREATININE 1.2 mg/dL (0.6-1.3); MAGNESIUM 2.3 mg/dL (1.8-2.4); PHOSPHORUS 4.2 mg/dL (2.5-4.9); POTASSIUM 3.9 mmol/L (3.5-5.1)
[2018-06-27 06:38] LABS: BASOPHILS # (AUTO) 0.1 /CMM (0.0-0.2); BASOPHILS % (AUTO) 0.8 % (0.0-2.0); EOSINOPHILS % (AUTO) 4.5 % (0.0-6.0); HEMATOCRIT 33 % (39-51); HEMOGLOBIN 11.3 g/dL (13.5-17.5); LYMPHOCYTES # (AUTO) 1.5 /CMM (0.8-4.8); LYMPHOCYTES % (AUTO) 19.2 % (20.0-44.0); MEAN CORPUSCULAR HGB CONC 34 g/dl (31.0-36.0); MEAN CORPUSCULAR VOLUME 89 fL (80-96); MONOCYTES # (AUTO) 1.1 /CMM (0.1-1.30); MONOCYTES % (AUTO) 14.6 % (2.0-12.0); NEUTROPHILS # (AUTO) 4.8 /CMM (1.8-8.9); NEUTROPHILS % (AUTO) 60.9 % (43.0-81.0); PLATELET COUNT (AUTO) 327 /CMM (150-450); RED BLOOD CELL COUNT(AUTO) 3.72 MIL/uL (4.5-6.0); WHITE BLOOD COUNT (AUTO) 7.9 K/uL (4.3-11.0)
[2018-06-27] MEDS: BLOOD SUGAR DIAGNOSTIC 1 EACH STRIP IN SCH ×4 (06:59→23:36)
[2018-06-27] MEDS: INSULIN REGULAR, HUMAN 100 UNIT/ML 3 ML VIAL SQ PRN ×4 (07:01→23:38)
--- NOTE | 2018-06-27 07:20 | NUR ---
TELE/RN OPENING NOTE THE PATIENT IS RECEIVED IN BED. OBTUNDED, NON-VERBAL BUT RESPONSIVE TO TACTILE STIMULI. THE PATIENT IS ON VENT/TRACH AND TOLERATES THE SETTING WELL. EXTERNAL TELE BOX READING IS SR99. LAC G 20 PATENT AND SALINE LOCKED. NPO. GT FEEDING GLUCERNA 1.2 INFUSING AT 55ML/HR. ABDOMEN SOFT AND NON-DISTENDED. BED LOW AND LOCKED. SIDE RAILS UP X3. CALL LIGHT WITHIN REACH. WILL CONTINUE TO MONITOR.
[2018-06-27 08:00] VITALS: BP 112/80
[2018-06-27] MEDS: DOCUSATE SODIUM LIQ 100 MG/10 ML UDC GT SCH (08:35)
[2018-06-27] MEDS: LEVETIRACETAM SOL (5 ML) 100 MG/ML UDC GT SCH ×2 (08:35→16:53)
[2018-06-27] MEDS: METOPROLOL TARTRATE 25 MG TABLET GT SCH ×2 (08:36→16:53)
[2018-06-27] MEDS: SODIUM CHLORIDE 1000 MG TABLET.SOL GT SCH ×3 (08:36→16:53)
[2018-06-27] MEDS: ASCORBIC ACID 500 MG TABLET GT SCH (08:36)
--- NOTE | 2018-06-27 08:36 | NUR ---
TELE/RN NOTE WHEN REMOVING 0900 DUE MEDICATIONS I WAS SUPPOSED TO REMOVE 2 CUPS OF LEVETIRACETAM BUT ACCIDENTLY REMOVED ONLY 1. LOGGED IN TO [facility] AND REMOVED 1 MORE CUP OF LEVETIRACETAM IN ORDER TO HAVE THE RIGHT DOSE OF MEDICATION. WHEN REMOVED I TYPED AMOUNT TO REMOVE 500 MG. CALLED PHARMACY MADE AWARE.
[2018-06-27] MEDS: PROSOURCE / PROSTAT (PYXIS) 30 ML UDC GT SCH (09:04)
--- NOTE | 2018-06-27 09:05 | NUR ---
TELE/RN NOTE PATIENT IS ON GT FEEDING. NO RESIDUAL NOTED. ABDOMEN SOFT AND NON-DISTENDED. GT PLACEMENT CHECK DONE PER POLICY PRIOR MEDICATION ADMINISTERED. 0900 MEDICATIONS ARE ADMINISTERED.
[2018-06-27 16:00] VITALS: BP 167/88
--- NOTE | 2018-06-27 18:43 | NUR ---
MS/RN CLOSING NOTE THE PATIENT OBTUNDED AND NON-VERBAL. RESPONSIVE TO TACTILE STIMULI. VENT AND TRACH PATIENT AND TOLERATES WELL. IN NO APPARENT DISTRESS. GT FEEDING ON GLUCERNA 55ML/HR. NO RESIDUAL NOTED. ABDOMEN SOFT AND NON-DISTENDED. LAC G 20 PATENT AND SALINE LOCKED. GOOD AND GENTLE SKIN CARE PROVIDED. ALL NEEDS ATTENDED. TURNED AND REPOSITIONED. BED LOW AND LOCKED. SIDE RAILS UP X3. WILL ENDORSE TO VENDING MACHINE REPAIRER.
--- NOTE | 2018-06-27 19:30 | NUR ---
TELE/RN NOTES RECEIVED PT. LYING IN BED WITH EYES OPEN. PT. IS OBTUNDED. RESPONDS TO TACTILE STIMULI. PT. IS VENT/TRACH DEPENDENT. BREATHING EVEN AND UNLABORED. NO SOB, RESPIRATORY DISTRESS OR S/S OF PAIN NOTED AT THIS TIME. PT. WITH EXTERNAL CEREAL SUPERVISOR PRESENT AND INTACT. CURRENT RHYTHM = SINUS RHYTHM HR 94. PT. WITH LEFT AC 20 GAUGE IV SALINE LOCK PRESENT, PATENT AND INTACT. PT. WITH G-TUBE PRESENT, PATENT AND INTACT ADMINISTERING TO PT. GLUCERNA 1.2 @ 55 ML/HR. PT. TOLERATING FEEDING WELL. NO RESIDUAL NOTED AT THIS TIME. PT. WITH FAMILY MEMBER PRESENT AT BEDSIDE. BED LOCKED AND IN LOWEST POSITION, SIDE RAILS UP X3, BED ALARM ON, WILL CONTINUE TO MONITOR.
[2018-06-27 20:00] VITALS: BP 142/91
[2018-06-27] MEDS: SENNOSIDES 8.6 MG TABLET GT SCH (23:26)
[2018-06-28] VITALS: BP 134/78
[2018-06-28 02:52] LABS: APPEARANCE,URINE CLEAR (CLEAR); BILIRUBIN,URINE NEGATIVE (NEGATIVE); BLOOD, URINE NEGATIVE Ery/uL (NEGATIVE); COLOR,URINE YELLOW (YELLOW); KETONES,URINE NEGATIVE (NEGATIVE); LEUKOCYTE ESTERASE ,URINE NEGATIVE (NEGATIVE); NITRITE, URINE NEGATIVE (NEGATIVE); PH,URINE 7.5 (5.0-8.0); PROTEIN,URINE 3+ mg/dl (NEGATIVE); UGLUCOSE NEGATIVE (NEGATIVE); UROBILINOGEN,URINE 0.2 EU/dL (0.2)
[2018-06-28 03:02] LABS: BACTERIA,URINE Few /HPF (None Seen); RBC,URINE 0-2 /HPF (0-2); SQUAMOUS EPITHELIAL CELL,UR Rare /HPF (None Seen); WBC,URINE 0-2 /HPF (0-3)
[2018-06-28 03:09] LABS: CREATININE, URINE 88.1 MG/DL (30.0-125.0); URINE TOTAL PROTEIN 402.5 mg/dL (0-11.9)
[2018-06-28 03:22] LABS: EOSINOPHIL,URINE None Seen
[2018-06-28 04:00] VITALS: BP 101/76
[2018-06-28] MEDS: LEVOFLOXACIN 500 MG /D5W 100ML 500 MG in PREMIX 1 EA IV SCH (05:24)
--- NOTE | 2018-06-28 06:19 | NUR ---
TELE/RN NOTES PT. IS LYING IN BED RESTING BREATHING EVEN AND UNLABORED. PT. IS TRACH/VENT DEPENDENT. NO SOB, RESPIRATORY DISTRESS OR S/S OF PAIN NOTED AT THIS TIME. PT. WITH EXTERNAL WIRE TESTER PRESENT AND INTACT. CURRENT RHYTHM = SINUS RHYTHM HR 89. PT. WITH LEFT AC 20 GAUGE IV SALINE LOCK PRESENT, PATENT AND INTACT. PT. WITH G-TUBE PRESENT, PATENT AND INTACT ADMINISTERING TO PT. GLUCERNA 1.2 @ 55 ML/HR. PT. TOLERATING FEEDING WELL. NO RESIDUAL NOTED AT THIS TIME AND THROUGHOUT SHIFT. ALL PT. NEEDS MET. PT. OFFLOADED, TURNED AND REPOSITIONED Q2H AND NEEDED. BED LOCKED AND IN LOWEST POSITION, SIDE RAILS UP X3, BED ALARM ON, WILL ENDORSE TO DAYSHIFT NURSE FOR CONTINUITY OF CARE.
[2018-06-28 06:30] LABS: BASOPHILS # (AUTO) 0.1 /CMM (0.0-0.2); EOSINOPHILS % (AUTO) 4.3 % (0.0-6.0); HEMATOCRIT 35 % (39-51); HEMOGLOBIN 11.7 g/dL (13.5-17.5); LYMPHOCYTES # (AUTO) 1.6 /CMM (0.8-4.8); LYMPHOCYTES % (AUTO) 21.6 % (20.0-44.0); MEAN CORPUSCULAR HGB CONC 33 g/dl (31.0-36.0); MEAN CORPUSCULAR VOLUME 91 fL (80-96); MONOCYTES # (AUTO) 1.1 /CMM (0.1-1.30); MONOCYTES % (AUTO) 14.4 % (2.0-12.0); NEUTROPHILS # (AUTO) 4.3 /CMM (1.8-8.9); NEUTROPHILS % (AUTO) 58.7 % (43.0-81.0); PLATELET COUNT (AUTO) 280 /CMM (150-450); RED BLOOD CELL COUNT(AUTO) 3.87 MIL/uL (4.5-6.0); WHITE BLOOD COUNT (AUTO) 7.3 K/uL (4.3-11.0)
[2018-06-28 06:53] LABS: ALBUMIN 2.6 g/dL (3.4-5.0); BILIRUBIN,TOTAL 0.3 mg/dL (0.2-1.0); CALCIUM, SERUM 8.5 mg/dL (8.5-10.1); CREATININE 1.1 mg/dL (0.6-1.3); PHOSPHORUS 4.3 mg/dL (2.5-4.9); POTASSIUM 3.9 mmol/L (3.5-5.1); TOTAL PROTEIN, SERUM 6.9 g/dL (6.4-8.2)
[2018-06-28] MEDS: INSULIN REGULAR, HUMAN 100 UNIT/ML 3 ML VIAL SQ PRN ×4 (07:05→21:51)
[2018-06-28] MEDS: BLOOD SUGAR DIAGNOSTIC 1 EACH STRIP IN SCH ×4 (07:05→21:50)
[2018-06-28] MEDS: LEVETIRACETAM SOL (5 ML) 100 MG/ML UDC GT SCH ×2 (09:06→16:08)
[2018-06-28] MEDS: DOCUSATE SODIUM LIQ 100 MG/10 ML UDC GT SCH (09:06)
[2018-06-28] MEDS: ASCORBIC ACID 500 MG TABLET GT SCH (09:06)
[2018-06-28] MEDS: SODIUM CHLORIDE 1000 MG TABLET.SOL GT SCH ×3 (09:06→16:08)
[2018-06-28] MEDS: PROSOURCE / PROSTAT (PYXIS) 30 ML UDC GT SCH (09:06)
[2018-06-28] MEDS: METOPROLOL TARTRATE 25 MG TABLET GT SCH ×2 (09:07→16:08)
--- NOTE | 2018-06-28 09:17 | NUR ---
RT NOTE RECEIVED PT MECHANICALLY VENTILATED VIA CUFFED TRACHEOSTOMY TUBE. CUFF INFLATED. TRACH TUBE MIDLINE AND SECURE. VENTILATOR SETTINGS PRESCRIBED. ALARMS SET PER PROTOCOL AND AUDIBLE. VENT PLUGGED IN TO RED OUTLET. AMBU BAG AT BED SIDE. NO DISTRESS NOTED AT MOMENT. Addendum: 06/28/18 at 0917 by MAYA WESTBROOK RT Amended: Links added.
--- NOTE | 2018-06-28 10:42 | NUR ---
RT NOTE PT NOTED TO HAVE POSITIONAL AUDIBLE LEAK AROUND STOMA. TIDAL VOLUMES NOTED TO BE BELOW NORMAL AND LOW MINUTE VENTILATION ALARM RINGS. UPON TRACH TUBE REPOSITION LEAK AND VOLUMES GO BACK TO NORMAL. Addendum: 06/28/18 at 1045 by MAYA WESTBROOK RT Amended: Links added.
[2018-06-28 16:00] VITALS: BP 130/70
--- NOTE | 2018-06-28 19:20 | NUR ---
RN NOTES: RECEIVED PATIENT LYING COMFORTABLY IN BED WITH NIECE PRESENT AT BEDSIDE, ON VENTILATOR,ONSTUNDED,OPEN EYES WHEN NAME IS CALLED,ON TELE MONITOR SR-104,NPO,PEG FEEDING ONGOING GLUCERNA Addendum: 06/28/18 at 1954 by JORDON BOOTH RN CONTINUATION: GLUCERNA 1.5@55ML/HR ONGOING TOLERATED,FALL, SAFETY AND ASPIRATION PRECAUTION OBSERVED,lac#20 INTACT AND PATENT.OFFLOADING BLE,TURNING AND REPOSITIONING Q2H CARRIED OUT.KEPT ON CLOSE WATCH.
[2018-06-28 20:00] VITALS: BP 131/78
--- NOTE | 2018-06-28 20:42 | NUR ---
RT PT RECEIVED TRACHED ON [facility] VENT ON CHARTED SETTINGS. NO SIGNS OF RESP DISTRESS NOTED AT THIS TIME. IMPROVEMENT ANALYST CHECKED. PT SUCTIONED. ALARMS SET AND AUDIBLE. AMBUBAG AND BACK UP TRACH AT BEDSIDE. VENT CONNECTED TO RED OUTLET. WILL CONT TO MONITOR. Addendum: 06/28/18 at 2042 by NIDIA MUIR RT Amended: Links added.
[2018-06-28] MEDS: SENNOSIDES 8.6 MG TABLET GT SCH (21:49)
--- NOTE | 2018-06-28 22:00 | NUR ---
RN NOTES: TURNING AND REPOSITIONING DONE, RBS-208, INSULIN GIVEN PER SCALE, WILL CONTINUE TO MONITOR FOR SIGN OF HYPER/HYPOGLYCEMIA.FEEDING CONTINUE AND TOLERATED.
[2018-06-29] VITALS: BP_SYST 133; BP_DIAS 63; BP_DIAS 70
--- NOTE | 2018-06-29 03:29 | NUR ---
RN NOTES: MORNING CARE DONE,BED BATH RENDERED, PASS MODERATE AMOUNT OF URINE, CLEAN AND CHANGE, NO BM, DRESSING DONE ON THE SACRAL AREA,TURNING AND REPOSITIONING DONE,KEPT ON SEMI FOWLERS POSITION, SUCTIONED NEEDED, NO SOB NO SIGN OF RESPIRATORY DISCOMFORT NOTED, SPO2-100%.KEPT ON CLOSE WATCH.
[2018-06-29 04:00] VITALS: BP 138/80
[2018-06-29] MEDS: LEVOFLOXACIN 500 MG /D5W 100ML 500 MG in PREMIX 1 EA IV SCH (04:07)
[2018-06-29] MEDS ORDERED: LEVOFLOXACIN (500MG) 500 MG TABLET PO SCH (06:00)
[2018-06-29] MEDS: BLOOD SUGAR DIAGNOSTIC 1 EACH STRIP IN SCH ×2 (06:46→12:22)
[2018-06-29] MEDS: INSULIN REGULAR, HUMAN 100 UNIT/ML 3 ML VIAL SQ PRN ×2 (06:49→12:26)
--- NOTE | 2018-06-29 07:01 | NUR ---
RN NOTES: BLOOD SUGAR CHECKED-233, INSULIN GIVEN PER SCALE, PATIENT IS STABLE, NO SIGN OF RESPIRATORY DISTRESS, SPO2 REMAINS 100%, SUCTION DONE PRN,TACHEOSTOMY IN SITE, VENTILATOR SETTING TV-500,PEEP5 FI02-40%,KEPT COMFORTABLE IN BED, TURNING AND REPOSITIONING DONE, KEPT COMFORTABLE IN BED, ENDORSED FOR CONTINUITY OF CARE.
--- NOTE | 2018-06-29 07:15 | NUR ---
RN OPENING/TELE NOTES RECEIVED PT. IN BED, PT. IS OBTUNDED, OPENS EYES TO STIMULI. PT. IS ON A TELE MONITOR READING SINUS RHYTHEM 88 BPM. PT. IS BREATHING UNLABORED ON A MECHANICAL VENTILATOR, WITH SPO2 100%, HAS A TRACHEOSTOMY PORTEX 7, SETTINGS AC 14, TV 500, PEEP 5, FIO2 40%, AND E:I 1:2. G TUBE FEEDING IS RUNNING AT 55 ML/HR. BED IS IN LOWEST, AND LOCKED POSITION. 2 SIDE RAILS UP, AND CALL LIGHT WITHIN REACH. ALL NEEDS MET. WILL CONTINUE TO ASSESS AND MONITOR.
[2018-06-29 08:00] VITALS: BP 118/52
[2018-06-29] MEDS: ASCORBIC ACID 500 MG TABLET GT SCH (08:34)
[2018-06-29] MEDS: SODIUM CHLORIDE 1000 MG TABLET.SOL GT SCH ×2 (08:34→12:45)
[2018-06-29] MEDS: DOCUSATE SODIUM LIQ 100 MG/10 ML UDC GT SCH (08:34)
[2018-06-29] MEDS: LEVETIRACETAM SOL (5 ML) 100 MG/ML UDC GT SCH (08:34)
[2018-06-29] MEDS: PROSOURCE / PROSTAT (PYXIS) 30 ML UDC GT SCH (08:34)
[2018-06-29] MEDS: METOPROLOL TARTRATE 25 MG TABLET GT SCH (08:37)
[2018-06-29] MEDS ORDERED: LEVOFLOXACIN (500MG) 500 MG TABLET GT SCH (10:06)
[2018-06-29 13:08] LABS: PTH, INTACT 22 pg/mL (15-65)
[2018-06-29 16:00] VITALS: BP 104/49
--- NOTE | 2018-06-29 16:36 | NUR ---
ZIGZAG TOPSTITCHER PT. LEFT TO [facility] BY AMBULANCE IN STABLE CONDITION. REPORT AND DISCHARGE INSTRUCTIONS WAS GIVEN TO JOSE DE JESUS, NURSING HEAVY DUTY MECHANIC FARM EQUIPMENT VIA PHONE. ID BAND, AND IV WAS REMOVED WITHOUT COMPLICATIONS. BELONGINGS LIST WAS CHECKED AND SIGNED. TYLENOL 650 MG GT WAS GIVEN BEFORE DISCHARGE DUE TO AXILLARY TEMP. 99.7 AND 100.2 F. PT. IS ON A MECHANICAL VENTILATOR, REPORT WAS GIVEN TO AMBULANCE CREW. PT. G TUBE WAS FLUSHED WITH WATER BEFORE DISCHARGE AND WAS INTACT AND PATENT. PT.'S NIECE LEFT BY CAR TO MEET PT. AT SNF.
[2018-07-01 11:10] LABS: *SPE A/G RATIO 0.8 (0.7-1.7); *SPE ALBUMIN 2.8 g/dL (2.9-4.4); *SPE ALPHA-1-GLOBULIN 0.2 g/dL (0.0-0.4); *SPE BETA GLOBULIN 1.3 g/dL (0.7-1.3); *SPE GLOBULIN, TOTAL 3.6 g/dL (2.2-3.9); *SPE M-SPIKE Not Observed g/dL (Not Observed)
== END 2018-06-29 16:45 | DRG 871 ==
LOC: ER 20:21 → TELE 06-26 00:25
PROVIDERS: ADMIT Nurse Practitioner Acute Care; ATTEND Nurse Practitioner Acute Care
PROC: 0D20XUZ Change Feeding Device in Upper Intestinal Tract, External Approach (ICD-10-PCS; principal; 2018-06-26)
PROC: 5A1945Z Respiratory Ventilation, 24-96 Consecutive Hours (ICD-10-PCS; 2018-06-26)
DX: A41.9 Sepsis, unspecified organism (principal); J18.9 Pneumonia, unspecified organism; N17.0 Acute kidney failure with tubular necrosis; K94.23 Gastrostomy malfunction; E44.0 Moderate protein-calorie malnutrition; D68.59 Other primary thrombophilia; J96.11 Chronic respiratory failure with hypoxia; Z99.11 Dependence on respirator [ventilator] status; J98.11 Atelectasis; Z68.1 Body mass index [BMI] 19.9 or less, adult; Y83.3 Surgical operation with formation of external stoma as the cause of abnormal reaction of the patient, or of later complication, without mention of misadventure at the time of the procedure; Y82.9 Unspecified medical devices associated with adverse incidents; Y92.129 Unspecified place in nursing home as the place of occurrence of the external cause; Z93.0 Tracheostomy status; R13.10 Dysphagia, unspecified; E11.9 Type 2 diabetes mellitus without complications; D63.8 Anemia in other chronic diseases classified elsewhere; Z86.73 Personal history of transient ischemic attack (TIA), and cerebral infarction without residual deficits; G40.909 Epilepsy, unspecified, not intractable, without status epilepticus; E78.5 Hyperlipidemia, unspecified; Z74.01 Bed confinement status; K21.9 Gastro-esophageal reflux disease without esophagitis; I10 Essential (primary) hypertension; F09 Unspecified mental disorder due to known physiological condition; I25.10 Atherosclerotic heart disease of native coronary artery without angina pectoris
CPT/HCPCS: 31720; 36415; 71045-TC; 74018; 80048-TC; 80053-TC; 80061-TC; 80076-TC; 81000-TC; 82550-TC; 82570-TC; 82962-TC; 83605-TC; 83735-TC; 83970; 84100-TC; 84155; 84155-TC; 84165; 84300-TC; 84484-TC; 85025-TC; 85730-TC; 87040-TC; 87081-TC; 87086-TC; 94002-TC; 94003-TC; 94760-TC; 94762-TC; 99082-TC; A4216; A6253; A6402; A6403; G0378; J1815; J1953; J1956; J7040; J7050; Q9963; Q9967

== ENCOUNTER 2018-10-18 20:56 | Inpatient (IN) | payer MEDICARE, MEDICAID ==
[~2018-10-18] VITALS: Ht 172.7 cm; Wt 62.1 kg
[~2018-10-18 20:56] MED LIST changes: -ATOR10TA GT; +IPRA3AMP23 IH
--- NOTE | 2018-10-18 21:28 | NUR ---
TRACH PT BROUGHT INTO ER ON SETTINGS OF AC 18, 500, 40%, +5. TRACH IS PORTEX 7. PT PLACED ON VENT AT THIS TIME. TRACH WELL SECURED AND PATENT. PARKING LOT MANAGER DONE. VENT PLUGGED INTO RED OUTLET. ALARMS TESTED AND AUDIBLE. SX DONE AT THIS TIME. AMBU BAG PLACED AT BEDSIDE. WILL CONT TO MONITOR PT. Addendum: 10/18/18 at 2131 by ROE LEE RT Amended: Links added.
[2018-10-18] MEDS ORDERED: DIATR MEGLU/DIATRIZOATE SODIUM 30 ML BOTTLE (GASTROGRAPHIN) ONE (22:40)
--- NOTE | 2018-10-18 23:07 | NUR ---
[facility] CALLED FOR TRANSPORT ETA 0100. TRIP#[id number]
--- NOTE | 2018-10-18 23:56 | NUR ---
CALLED [facility] FOR TRANSPORT UPDATE. UPDATED ETA IS 0432
[2018-10-19] VITALS (7 sets, daily range): BP systolic 82–149; BP diastolic 40–81
[2018-10-19] MEDS ORDERED: ACETAMINOPHEN 650 MG/SUPP.RECT RC ONE (00:30)
[2018-10-19] MEDS ORDERED: IV NS 0.9% 1,000 ML BAG IV ONE (00:30)
--- NOTE | 2018-10-19 00:30 | NUR ---
Pt IS BEING ADMITTED. CANCELLED AMBULANCE TRANSPORT
[2018-10-19 01:00] LABS: BASOPHILS # (AUTO) 0.1 /CMM (0.0-0.2); BASOPHILS % (AUTO) 0.5 % (0.0-2.0); EOSINOPHILS % (AUTO) 1.7 % (0.0-6.0); HEMATOCRIT 25 % (39-51); HEMOGLOBIN 8.2 g/dL (13.5-17.5); LYMPHOCYTES # (AUTO) 1.5 /CMM (0.8-4.8); LYMPHOCYTES % (AUTO) 10.5 % (20.0-44.0); MEAN CORPUSCULAR HGB CONC 33 g/dl (31.0-36.0); MEAN CORPUSCULAR VOLUME 92 fL (80-96); MONOCYTES # (AUTO) 1.1 /CMM (0.1-1.30); MONOCYTES % (AUTO) 8.1 % (2.0-12.0); NEUTROPHILS # (AUTO) 11.3 /CMM (1.8-8.9); NEUTROPHILS % (AUTO) 79.2 % (43.0-81.0); PLATELET COUNT (AUTO) 436 /CMM (150-450); RED BLOOD CELL COUNT(AUTO) 2.74 MIL/uL (4.5-6.0); WHITE BLOOD COUNT (AUTO) 14.2 K/uL (4.3-11.0)
[2018-10-19] MEDS ORDERED: ACETAMINOPHEN 650 MG/20.3 ML UDC ONE (01:06)
[2018-10-19 01:18] LABS: CALCIUM, SERUM 9.2 mg/dL (8.5-10.1); CARBON DIOXIDE 26 mmol/L (21-32); CHLORIDE 100 mmol/L (98-107); CREATININE 1.7 mg/dL (0.6-1.3); GLUCOSE 149 mg/dL (74-106); SODIUM SERUM 138 mmol/L (136-145); UREA NITROGEN, BLOOD 25 mg/dL (7-18)
[2018-10-19 01:23] LABS: ALANINE AMINOTRANSFERASE 18 U/L (12-78); ALBUMIN 3.2 g/dL (3.4-5.0); ALKALINE PHOSPHATASE 91 U/L (46-116); ASPARTATE AMINOTRANSFERASE 20 U/L (15-37); BILIRUBIN,DIRECT 0.1 mg/dL (0.0-0.2); BILIRUBIN,TOTAL 0.5 mg/dL (0.2-1.0); TOTAL PROTEIN, SERUM 8.8 g/dL (6.4-8.2)
[2018-10-19] MEDS ORDERED: ACETAMINOPHEN ES 500 MG TABLET GT ONE (01:30)
[2018-10-19] MEDS ORDERED: ASPIRIN 300 MG/SUPP.RECT RC ONE ×2 (01:30→03:27)
[2018-10-19 01:38] LABS: APPEARANCE,URINE Clear (CLEAR); BILIRUBIN,URINE Negative (NEGATIVE); BLOOD, URINE Negative Ery/uL (NEGATIVE); COLOR,URINE Yellow (YELLOW); KETONES,URINE Negative (NEGATIVE); LEUKOCYTE ESTERASE ,URINE Negative (NEGATIVE); NITRITE, URINE Negative (NEGATIVE); PH,URINE 7.5 (5.0-8.0); PROTEIN,URINE 100 mg/dl (NEGATIVE); UGLUCOSE Negative (NEGATIVE); UROBILINOGEN,URINE 0.2 EU/dL (0.2)
[2018-10-19 01:40] LABS: BACTERIA,URINE None seen /HPF (None Seen); RBC,URINE 0-2 /HPF (0-2); SQUAMOUS EPITHELIAL CELL,UR Rare /HPF (None Seen); WBC,URINE 0-2 /HPF (0-3)
[2018-10-19] MEDS ORDERED: MAGNESIUM HYDROXIDE 30 ML UDC GT PRN (02:30)
[2018-10-19] MEDS ORDERED: BISACODYL SUPP (10 MG) 10 MG/SUPP.RECT SUPP.RECT RC PRN (02:30)
[2018-10-19] MEDS ORDERED: GLUCERNA 1.2 1,000 ML BOTTLE GT SCH (02:30)
[2018-10-19] MEDS ORDERED: NA PHOS,M-B/NA PHOS,DI-BA 1 EA ENEMA RC PRN (02:45)
[2018-10-19] MEDS ORDERED: ALBUTEROL FS 2.5 MG/3 ML VIAL.NEB NEB PRN (03:00)
[2018-10-19] MEDS ORDERED: ZOLPIDEM TARTRATE 5 MG TABLET PO PRN (03:00)
[2018-10-19] MEDS ORDERED: LORAZEPAM INJ 2 MG/ML VIAL IV PRN (03:00)
[2018-10-19] MEDS ORDERED: Z GUARD REMEDY 2 OZ OINT TP PRN (03:00)
[2018-10-19] MEDS ORDERED: HYDROCODONE/APAP 5/325MG 1 EACH TABLET PO PRN (03:00)
[2018-10-19] MEDS ORDERED: MAG HYDROX/AL HYDROX/SIMETH 30 ML UDC PO PRN (03:00)
[2018-10-19] MEDS ORDERED: DEXTROSE 50%-WATER 50 ML DISP.SYRIN IV PRN (03:00)
[2018-10-19] MEDS ORDERED: ONDANSETRON HCL/PF 4 MG/2 ML VIAL IVP PRN (03:00)
[2018-10-19] MEDS ORDERED: MORPHINE SULFATE INJ 2 MG/ML DISP.SYRIN IV PRN (03:00)
[2018-10-19] MEDS ORDERED: ACETAMINOPHEN 325 MG TABLET PO PRN (03:00)
--- NOTE | 2018-10-19 04:30 | NUR ---
REPORT GIVEN TO CORNELIAFlaquito ROMERO FOR Pt's CORA
--- NOTE | 2018-10-19 04:36 | NUR ---
Pt TRANSPORTED PER ACLS PROTOCOL. WITH RT AT BEDSIDE.
[2018-10-19] MEDS ORDERED: ENOXAPARIN SODIUM 40 MG/0.4 ML DISP.SYRIN SQ ONE (05:00)
[2018-10-19] MEDS ORDERED: CEFTRIAXONE 1 G in IV D5W 50 ML IV SCH (05:00)
[2018-10-19] MEDS ORDERED: CEFTRIAXONE 1 G VIAL ONE (05:50)
[2018-10-19 06:28] LABS: PHOSPHORUS 2.4 mg/dL (2.5-4.9)
[2018-10-19 06:35] LABS: THYROID STIMULATING HORMONE 2.988 uIU/mL (0.358-3.74)
--- NOTE | 2018-10-19 07:08 | NUR ---
TELE/MICROSOFT DEVELOPER NOTES: RECEIVED PT. VIA GURNEY OBTUNDED W/ EYES OPEN. NO FACIAL GRIMACES OR MOANING NOTED. ON TELE MONITOR W/ ST. PT. W/ GT REINSERTION. STARTED GLUCERNA 1.2 @ 55 ML/HR. W/ NO RESIDUAL NOTED. INSERTED F/C FR. 16 PER ORDER W/ SLIGHT PINKISH TINGED URINE. HELD LOVENOX. WILL INFORM DAY SHIFT NURSE TO F/U W/ MD. PT. IS CONTRACTED BUE/BLE. GT SITE REDNESS NOTED. INCONTINENT CARE RENDERED. ON MECH. VENT. TOLERATED SETTING WELL W/ AMBU BAG AT BEDSIDE PULLED IN RED OUTLET. WILL CONTINUE TO MONITOR.
--- NOTE | 2018-10-19 08:00 | NUR ---
SPORT INTERN OPENING NOTES: RECEIVED PATIENT IN BED OBTUNDED W/ EYES OPEN. NO SOB OR ACUTE DISTRESS NOTED. NO FACIAL GRIMACES OR MOANING NOTED. PT ON TELE MONITOR W/ ST 118. GT INFUSING GLUCERNA 1.2 @ 55 ML/HR. W/ NO RESIDUAL NOTED. MULLEN INTACT AND PATENT DRAINING W/ SLIGHT PINKISH TINGED URINE. LOVENOX HELD BY PAINT MIXER MACHINE RN. WILL F/U WITH MD. PATIENT IS CONTRACTED BUE/BLE. GT SITE REDNESS NOTED. ON MECH. VENT. TOLERATED SETTING WELL W/ AMBU BAG AT BEDSIDE PLUGGED IN RED OUTLET. SAFETY MEASURES IN PLACE, BED IN LOW LOCKED POSITION. WILL CONTINUE TO MONITOR.
[2018-10-19] MEDS: BLOOD SUGAR DIAGNOSTIC 1 EACH STRIP IN SCH ×4 (08:24→21:14)
[2018-10-19] MEDS: PANTOPRAZOLE 40 MG TABLET.DR PO SCH (08:28)
[2018-10-19] MEDS: MULTIVIT W/MINERALS 1 TAB TABLET PO SCH (08:29)
[2018-10-19] MEDS: METOPROLOL TARTRATE 25 MG TABLET GT SCH ×2 (08:29→17:55)
[2018-10-19] MEDS: SODIUM CHLORIDE 1000 MG TABLET.SOL GT SCH ×3 (08:29→17:54)
[2018-10-19] MEDS: ASPIRIN 81 MG TAB.CHEW GT SCH (08:29)
[2018-10-19] MEDS: LEVETIRACETAM SOL (5 ML) 100 MG/ML UDC GT SCH ×2 (08:29→17:54)
[2018-10-19] MEDS: DOCUSATE SODIUM LIQ 100 MG/10 ML UDC GT SCH (08:29)
[2018-10-19] MEDS: ASCORBIC ACID 500 MG TABLET GT SCH (08:29)
[2018-10-19] MEDS: PROSOURCE / PROSTAT (PYXIS) 30 ML UDC GT SCH (08:33)
[2018-10-19] MEDS ORDERED: INSULIN GLARGINE HUM REC ANLOG 80 UNIT SQ SCH (09:00)
[2018-10-19 09:52] LABS: IRON, SERUM 17 ug/dl (50-175); TOTAL IRON BINDING CAPACITY 152 ug/dl (250-450)
[2018-10-19 10:06] LABS: FERRITIN 533 ng/mL (8-388)
[2018-10-19] MEDS: INSULIN REGULAR, HUMAN 100 UNIT/ML 3 ML VIAL SQ PRN ×3 (12:17→21:16)
[2018-10-19] MEDS ORDERED: PIPERACILLIN /TAZOBACTAM 3.375 G in IV D5W 50 ML IV ONE (13:00)
[2018-10-19] MEDS ORDERED: NEUTRA PHOS 1 POWD.PACKET GT ONE (16:30)
[2018-10-19] MEDS: ZINC SULFATE 220 MG CAPSULE GT SCH (17:54)
--- NOTE | 2018-10-19 19:30 | NUR ---
MACHINE STONE POLISHER NOTE: RECEIVED PT ON BED OBTUNDED WITH NO APPARENT DISTRESS NOTED. NO FACIAL GRIMACING OR ANY SIGNS OF PAIN NOTED. [facility], SETTINGS ORDERED. NO SOB NOTED. SATURATING WELL. GT INTACT AND PATENT, ABLE TO TOLERATE FEEDING WELL. HEAD OF BED KEPT ELEVATED. IV ON LEFT THUMB FINGER #22 INTACT AND PATENT, IVF INFUSING WELL. MULLEN CATH INTACT, BLOOD TINGED URINE NOTED. ANODE CREW SUPERVISOR WISAM MADE AWARE. KEPT CLEAN, DRY AND COMFORTABLE. SAFETY AND FALL PRECAUTIONS OBSERVED AND MAINTAINED. WILL CONTINUE TO MONITOR PT.
--- NOTE | 2018-10-19 19:45 | NUR ---
BLACKTOP SPREADER NOTE: RECEIVED PT ON BED ALERT AND ORIENTED X3. ARMENIAN SPEAKING. FAMILY MEMBER AT BEDSIDE. NO APPARENT DISTRESS NOTED. ON ROOM AIR, NO SOB NOTED. IV ON RIGHT FOREARM #20 INTACT AND PATENT, FLUSHING WELL. FAMILY SPOKE WITH ANESTHESIOLOGIST AND TO DR. SUSY MEZA AND AGREED TO PROCEED WITH THE SURGERY. PT WAS PICKED UP BY OR TEAM IN STABLE CONDITION. VITAL SIGNS WNL. Addendum: 10/19/18 at 2009 by BRITTANIE MEZA RN WRONG PT.
--- NOTE | 2018-10-19 19:48 | NUR ---
PT RECEIVED ON VENT VIA TRACH SECURED VIA TRACH TIE. AIR WAY PATENT. PT RESPONSIVE TO PAIN AMBU BAG AT BEDSIDE ALARMS SET AND AUDIBLE. DISCONNECT ALARMS CHECKED. SUCTIONED A SMALL AMOUNT OF THICK YELLOW SECRETIONS NO BREATHING TX ORDERED AT THIS TIME. ORAL SUCTION VIA SPARKLE, HEAD OF BED AT 30 DEGREES Addendum: 10/19/18 at 1954 by DEWAYNE URENA RT Amended: Links added.
[2018-10-19] MEDS: PIPERACILLIN /TAZOBACTAM 3.375 G in IV D5W 100 ML IV SCH ×2 (20:00→20:37)
--- NOTE | 2018-10-19 20:07 | NUR ---
SENIOR INFORMATION SECURITY CONSULTANT CLOSING NOTES: RECEIVED PATIENT IN BED OBTUNDED W/ EYES OPEN. NO SOB OR ACUTE DISTRESS NOTED. NO FACIAL GRIMACES OR MOANING NOTED. PT ON TELE MONITOR W/ ST 110. GT INFUSING GLUCERNA 1.2 @ 55 ML/HR. W/ NO RESIDUAL NOTED. MULLEN INTACT AND PATENT DRAINING W/ SLIGHT PINKISH TINGED URINE. PATIENT IS CONTRACTED BUE/BLE. GT SITE REDNESS NOTED. ON MECH. VENT. TOLERATED SETTING WELL W/ AMBU BAG AT BEDSIDE PLUGGED IN RED OUTLET. SAFETY MEASURES IN PLACE, BED IN LOW LOCKED POSITION. CARE ENDORSED TO IT FIELD TECHNICIAN RN.
[2018-10-19] MEDS: IV NS 0.9% 1,000 ML IV PRN (21:20)
[2018-10-19] MEDS: SENNOSIDES 8.6 MG TABLET GT SCH (21:20)
[2018-10-20] VITALS (9 sets, daily range): BP systolic 116–141; BP diastolic 67–76
[2018-10-20] MEDS: GLUCERNA 1.2 1,000 ML BOTTLE GT PRN ×2 (03:32→21:02)
[2018-10-20] MEDS: PIPERACILLIN /TAZOBACTAM 3.375 G in IV D5W 100 ML IV SCH ×3 (04:19→20:13)
--- NOTE | 2018-10-20 06:38 | NUR ---
GEOPHYSICAL ENGINEER NOTE: NO CHANGES NOTED THROUGHOUT THE SHIFT. NO ACUTE DISTRESS NOTED. NO FACIAL GRIMACING OR ANY SIGNS OF PAIN NOTED. ON [facility] VENT, SETTINGS ORDERED. NO SOB NOTED. SUCTIONED NEEDED. SINUS TACHY ON TELE MONITOR HR 105BPM. MULLEN CATH INTACT AND PATENT, DRAINED 675ML OF PINK TINGED URINE OUTPUT. GT INTACT, NO RESIDUAL NOTED AT THIS TIME. KEPT CLEAN, DRY AND COMFORTABLE. SAFETY AND FALL PRECAUTIONS OBSERVED AND MAINTAINED. WILL ENDORSE TO DAY SHIFT RN FOR CONTINUITY OF CARE.
[2018-10-20 06:58] LABS: BASOPHILS % (AUTO) 0.5 % (0.0-2.0); LYMPHOCYTES # (AUTO) 1.2 /CMM (0.8-4.8); LYMPHOCYTES % (AUTO) 13.6 % (20.0-44.0); MEAN CORPUSCULAR HGB CONC 33 g/dl (31.0-36.0); MEAN CORPUSCULAR VOLUME 93 fL (80-96); MONOCYTES # (AUTO) 0.8 /CMM (0.1-1.30); MONOCYTES % (AUTO) 9.9 % (2.0-12.0); NEUTROPHILS # (AUTO) 6.2 /CMM (1.8-8.9); PLATELET COUNT (AUTO) 315 /CMM (150-450); WHITE BLOOD COUNT (AUTO) 8.5 K/uL (4.3-11.0)
[2018-10-20 07:37] LABS: ALBUMIN 2.3 g/dL (3.4-5.0); BILIRUBIN,TOTAL 0.2 mg/dL (0.2-1.0); CALCIUM, SERUM 7.7 mg/dL (8.5-10.1); CREATININE 1.2 mg/dL (0.6-1.3); MAGNESIUM 1.9 mg/dL (1.8-2.4); PHOSPHORUS 2.5 mg/dL (2.5-4.9); POTASSIUM 3.8 mmol/L (3.5-5.1); TOTAL PROTEIN, SERUM 6.8 g/dL (6.4-8.2)
[2018-10-20 07:40] LABS: HEMOGLOBIN 6.4 g/dL (13.5-17.5)
[2018-10-20 07:41] LABS: HEMATOCRIT 19 % (39-51)
[2018-10-20 07:43] LABS: BAND % (MANUAL) 5 % (0.0-5.0); EOSINOPHILS % (MANUAL) 3 % (0-4); LYMPHOCYTES % (MANUAL) 12 % (16-48); MONOCYTES % (MANUAL) 7 % (0-11.0); NEUTROPHILS % (MANUAL) 73 (42-76)
[2018-10-20] MEDS: MULTIVIT W/MINERALS 1 TAB TABLET PO SCH (08:48)
[2018-10-20] MEDS: ASCORBIC ACID 500 MG TABLET GT SCH (08:48)
[2018-10-20] MEDS: PANTOPRAZOLE 40 MG TABLET.DR PO SCH (08:48)
[2018-10-20] MEDS: METOPROLOL TARTRATE 25 MG TABLET GT SCH ×2 (08:49→17:17)
[2018-10-20] MEDS: DOCUSATE SODIUM LIQ 100 MG/10 ML UDC GT SCH (08:49)
[2018-10-20] MEDS: LEVETIRACETAM SOL (5 ML) 100 MG/ML UDC GT SCH ×2 (08:49→17:17)
[2018-10-20] MEDS: SODIUM CHLORIDE 1000 MG TABLET.SOL GT SCH ×3 (08:49→17:17)
[2018-10-20] MEDS: BLOOD SUGAR DIAGNOSTIC 1 EACH STRIP IN SCH ×3 (08:50→17:18)
[2018-10-20] MEDS: ASPIRIN 81 MG TAB.CHEW GT SCH (08:50)
[2018-10-20] MEDS: INSULIN REGULAR, HUMAN 100 UNIT/ML 3 ML VIAL SQ PRN ×3 (08:51→17:50)
[2018-10-20] MEDS: PROSOURCE / PROSTAT (PYXIS) 30 ML UDC GT SCH (08:55)
[2018-10-20] MEDS: ENOXAPARIN SODIUM 40 MG/0.4 ML DISP.SYRIN SQ SCH (09:19)
[2018-10-20] MEDS: ACETAMINOPHEN 650 MG/20.3 ML UDC GT PRN (10:54)
[2018-10-20] MEDS: IV NS 0.9% 1,000 ML IV PRN (14:31)
[2018-10-20] MEDS: SOD FERRIC GLUC 125 MG in IV NS 0.9% 100 ML IV SCH (15:26)
[2018-10-20 16:04] LABS: BASOPHILS % (AUTO) 0.6 % (0.0-2.0); EOSINOPHILS % (AUTO) 3.1 % (0.0-6.0); HEMATOCRIT 25 % (39-51); HEMOGLOBIN 8.2 g/dL (13.5-17.5); LYMPHOCYTES # (AUTO) 1.3 /CMM (0.8-4.8); LYMPHOCYTES % (AUTO) 19.2 % (20.0-44.0); MEAN CORPUSCULAR HGB CONC 34 g/dl (31.0-36.0); MEAN CORPUSCULAR VOLUME 90 fL (80-96); MONOCYTES # (AUTO) 0.8 /CMM (0.1-1.30); MONOCYTES % (AUTO) 11.3 % (2.0-12.0); NEUTROPHILS # (AUTO) 4.4 /CMM (1.8-8.9); NEUTROPHILS % (AUTO) 65.8 % (43.0-81.0); PLATELET COUNT (AUTO) 294 /CMM (150-450); RED BLOOD CELL COUNT(AUTO) 2.75 MIL/uL (4.5-6.0); WHITE BLOOD COUNT (AUTO) 6.8 K/uL (4.3-11.0)
[2018-10-20] MEDS: ZINC SULFATE 220 MG CAPSULE GT SCH (17:17)
--- NOTE | 2018-10-20 19:30 | NUR ---
RECEIVED PATIENT IN BED WITH EYES CLOSED; AROUSABLE BY TOUCH AND LIGHT PAIN; NONVERBAL. NO ACUTE DISTRESS NOTED. NO SIGNS OF PAIN NOTED. VENT SETTING ORDERED. TRACH INTACT. IV SITES PATENT, INTACT; IVF INFUSING ORDERED. MULLEN CATH PATENT, INTACT; DRAINING SWETA COLORED URINE WITH RED SEDIMENTS. ON LOW BED WITH BILATERAL UPPER SIDE RAILS UP. CALL VASQUES WITHIN EASY REACH. WILL CONTINUE TO MONITOR.
[2018-10-20] MEDS: SENNOSIDES 8.6 MG TABLET GT SCH (22:00)
--- NOTE | 2018-10-20 22:08 | NUR ---
PER DAY SHIFT REPORT, PATIENT'S STOOL ALREADY VERY SOFT. SENNA HELD TO PREVENT LOOSE STOOL.
[2018-10-21] VITALS (7 sets, daily range): BP systolic 114–161; BP diastolic 59–75
[2018-10-21] MEDS: BLOOD SUGAR DIAGNOSTIC 1 EACH STRIP IN SCH ×4 (00:13→17:55)
[2018-10-21] MEDS: INSULIN REGULAR, HUMAN 100 UNIT/ML 3 ML VIAL SQ PRN ×4 (00:14→17:12)
--- NOTE | 2018-10-21 01:50 | NUR ---
PT RECEIVED ON VENT VIA TRACH SECURED VIA TRACH TIE. AIRWAY PATENT. PT RESPONSIVE TO PAIN. AMBU BAG AT BEDSIDE ALARMS SET AND AUDIBLE. DISCONNECT ALARMS CHECKED. SUCTIONED A SMALL AMOUNT OF THICK YELLOW SECRETIONS. NO BREATHING TX ORDERED AT THIS TIME. ORAL SUCTION VIA CHANTELLUER, HEAD OF BED AT 30 DEGREES. Addendum: 10/21/18 at 0151 by DEWAYNE URENA RT Amended: Links added.
[2018-10-21] MEDS: PIPERACILLIN /TAZOBACTAM 3.375 G in IV D5W 100 ML IV SCH ×3 (04:39→20:18)
[2018-10-21] MEDS: IV NS 0.9% 1,000 ML IV PRN ×2 (05:13→22:27)
--- NOTE | 2018-10-21 06:00 | NUR ---
PATIENT WITH EYES CLOSED, AROUSABLE. RESPIRATIONS EVEN. NO SIGN OF PAIN NOTED. NO SYMPTOMS OF HYPER/HYPOGLYCEMIA. DUE MEDS GIVEN WITH NO ASE NOTED. IVF INFUSING ORDERED. GT PATENT, INTACT; NOTED TO BE IN PLACE VIA AUSCULTATION. GTF ONGOING ORDERED. PATIENT TOLERATING FEEDING. 10 ML RESIDUAL ASPIRATED FROM GT. HOB RAISED. CONTACT ISOLATION FOR CRKP IN URINE MAINTAINED. SAFETY PRECAUTIONS AND COMFORT MEASURES IN PLACE. WILL GIVE REPORT TO DAY SHIFT FOR CONTINUITY OF CARE.
[2018-10-21 06:18] LABS: BASOPHILS # (AUTO) 0.1 /CMM (0.0-0.2); BASOPHILS % (AUTO) 0.9 % (0.0-2.0); EOSINOPHILS % (AUTO) 5.1 % (0.0-6.0); HEMATOCRIT 25 % (39-51); HEMOGLOBIN 8.3 g/dL (13.5-17.5); LYMPHOCYTES # (AUTO) 1.7 /CMM (0.8-4.8); LYMPHOCYTES % (AUTO) 17.4 % (20.0-44.0); MEAN CORPUSCULAR HGB CONC 33 g/dl (31.0-36.0); MEAN CORPUSCULAR VOLUME 91 fL (80-96); MONOCYTES # (AUTO) 1.1 /CMM (0.1-1.30); MONOCYTES % (AUTO) 11.4 % (2.0-12.0); NEUTROPHILS # (AUTO) 6.2 /CMM (1.8-8.9); NEUTROPHILS % (AUTO) 65.2 % (43.0-81.0); PLATELET COUNT (AUTO) 266 /CMM (150-450); RED BLOOD CELL COUNT(AUTO) 2.76 MIL/uL (4.5-6.0); WHITE BLOOD COUNT (AUTO) 9.5 K/uL (4.3-11.0)
[2018-10-21 06:32] LABS: ALBUMIN 2.1 g/dL (3.4-5.0); BILIRUBIN,TOTAL 0.2 mg/dL (0.2-1.0); CALCIUM, SERUM 7.7 mg/dL (8.5-10.1); CREATININE 1.1 mg/dL (0.6-1.3); MAGNESIUM 1.9 mg/dL (1.8-2.4); PHOSPHORUS 2.2 mg/dL (2.5-4.9); POTASSIUM 3.9 mmol/L (3.5-5.1); TOTAL PROTEIN, SERUM 6.5 g/dL (6.4-8.2)
[2018-10-21 06:54] LABS: BAND % (MANUAL) 3 % (0.0-5.0); EOSINOPHILS % (MANUAL) 5 % (0-4); LYMPHOCYTES % (MANUAL) 14 % (16-48); METAMYELOCYTES % 1 % (0-0); MONOCYTES % (MANUAL) 12 % (0-11.0); MYELOCYTES % 3 % (0-0); NEUTROPHILS % (MANUAL) 62 (42-76)
--- NOTE | 2018-10-21 07:30 | NUR ---
RN NOTES: RECEIVED PATIENT ON BED, OBTUNDED, TRACH TO [facility] VENT, SETTINGS ORDERED: TOLERATED WELL. NO SOB NOTED. PATIENT COMFORTABLE IN BED, NOT ON ANY FORM OF DISTRESS, NO INDICATION OF PAIN. SR ON THE MONITOR, HR AT 80'S. GT IN PLACE AND INTACT AND PATENT, PLACEMENT VERIFIED BY ASPIRATING GASTRIC RESIDUAL: NO GASTRIC RESIDUAL TAKEN AT THIS TIME. WITH ONGOING GTF OF GLUCERNA AT 55CC/HR. IV ACCESS NOTED ON THE L THUMB G 22: SL AND R HAND G 20: IN PLACE AND INTACT, WITH ONGOING IVF OF NS AT 75 CC/HR. MULLEN CATH IN PLACE, DRAINING VIA GRAVITY. SAFETY MEASURES AND ASPIRATION PRECAUTIONS OBSERVED AND MAINTAINED. HOB ELEVATED TO 45, BED IN LOW AND LOCKED POSITION, CALL LIGHT PLACED WITHIN REACH WILL CONTINUE TO MONITOR AND ANTICIPATE NEEDS.
[2018-10-21] MEDS: PANTOPRAZOLE 40 MG TABLET.DR PO SCH (08:39)
[2018-10-21] MEDS: DOCUSATE SODIUM LIQ 100 MG/10 ML UDC GT SCH (08:39)
[2018-10-21] MEDS: LEVETIRACETAM SOL (5 ML) 100 MG/ML UDC GT SCH ×2 (08:39→17:10)
[2018-10-21] MEDS: ASPIRIN 81 MG TAB.CHEW GT SCH (08:39)
[2018-10-21] MEDS: METOPROLOL TARTRATE 25 MG TABLET GT SCH ×2 (08:40→17:10)
[2018-10-21] MEDS: ASCORBIC ACID 500 MG TABLET GT SCH (08:41)
[2018-10-21] MEDS: MULTIVIT W/MINERALS 1 TAB TABLET PO SCH (08:41)
[2018-10-21] MEDS: ENOXAPARIN SODIUM 40 MG/0.4 ML DISP.SYRIN SQ SCH (08:41)
[2018-10-21] MEDS: SODIUM CHLORIDE 1000 MG TABLET.SOL GT SCH ×3 (08:41→17:10)
[2018-10-21] MEDS: PROSOURCE / PROSTAT (PYXIS) 30 ML UDC GT SCH (08:42)
--- NOTE | 2018-10-21 11:23 | NUR ---
RT NOTE RECEIVED PT MECHANICALLY VENTILATED VIA PORTEX 7 CUFFED TRACH TUBE. CUFF INFLATED. TRACH TUBE MIDLINE AND SECURE. VENTILATOR SETTINGS PRESCRIBED. ALARMS SET PER PROTOCOL AND AUDIBLE. VENT PLUGGED IN TO RED OUTLET. AMBU BAG AT BED SIDE. NO DISTRESS NOTED. Addendum: 10/21/18 at 1124 by MAYA WESTBROOK RT Amended: Links added.
[2018-10-21] MEDS ORDERED: NEUTRA PHOS 1 POWD.PACKET NG ONE (12:00)
[2018-10-21] MEDS: SOD FERRIC GLUC 125 MG in IV NS 0.9% 100 ML IV SCH (15:56)
[2018-10-21] MEDS: ZINC SULFATE 220 MG CAPSULE GT SCH (17:10)
[2018-10-21] MEDS: GLUCERNA 1.2 1,000 ML BOTTLE GT PRN (17:10)
--- NOTE | 2018-10-21 19:22 | NUR ---
RN NOTES ENDORSED PATIENT FOR CONTINUITY OF CARE. NOT ANY FOR OF DISTRESS. ALL NURSING NEEDS ATTENDED AND MET. SAFETY MEASURES IN PLACE AT ALL TIME.CALL LIGHT PLACE WITHIN REACH
[2018-10-21] MEDS: SENNOSIDES 8.6 MG TABLET GT SCH (22:27)
[2018-10-21] MEDS ORDERED: HYDROGEL DRESSING 90 GM TUBE TP SCH (22:30)
[2018-10-22] VITALS: BP 149/70
[2018-10-22] MEDS: INSULIN REGULAR, HUMAN 100 UNIT/ML 3 ML VIAL SQ PRN ×4 (00:42→18:32)
[2018-10-22] MEDS: BLOOD SUGAR DIAGNOSTIC 1 EACH STRIP IN SCH ×4 (00:43→18:19)
[2018-10-22 04:00] VITALS: BP 146/71
[2018-10-22] MEDS: PIPERACILLIN /TAZOBACTAM 3.375 G in IV D5W 100 ML IV SCH ×3 (04:33→19:54)
--- NOTE | 2018-10-22 07:30 | NUR ---
HAZARDOUS WASTE TECHNICIAN AM NOTES: RECEIVED PATIENT IN BED, OBTUNDED, TRACH TO [facility] VENT, SETTINGS ORDERED: TOLERATED WELL. NO SOB NOTED. PATIENT COMFORTABLE IN BED, NOT ON ANY FORM OF DISTRESS, NO SIGNS OF PAIN. SR ON THE MONITOR, HR AT 62. GT IN PLACE AND INTACT AND PATENT, PLACEMENT CHECKED. 0 GASTRIC RESIDUAL: ONGOING GTF OF GLUCERNA AT 55CC/HR. IV ACCESS NOTED ON THE L THUMB G 22: SL AND R HAND G 20: IN PLACE AND INTACT, WITH ONGOING IVF OF NS AT 75 CC/HR. MULLEN CATH IN PLACE, DRAINING VIA GRAVITY. SAFETY MEASURES AND ASPIRATION PRECAUTIONS OBSERVED AND MAINTAINED. HOB ELEVATED TO 45, BED IN LOW AND LOCKED POSITION, CALL LIGHT PLACED WITHIN REACH WILL CONTINUE TO MONITOR AND ANTICIPATE NEEDS.
[2018-10-22 08:00] VITALS: BP 152/71
--- NOTE | 2018-10-22 08:36 | NUR ---
RT NOTE: RECEIVED PT ON NOTED VENT SETTINGS. PT HAS TRACH PORTEX SIZE 7 CUFFED. TRACH CHECKED SECURE AND PATENT. SPARE TRACH AND AMBU BAG @ BEDSIDE. ALARMS ON CHECKED AND AUDIBLE. WILL CONTINUE TO MONITOR. Addendum: 10/22/18 at 0840 by LETITIA NAVARRETE RT Amended: Links added.
[2018-10-22] MEDS: HYDROGEL DRESSING 90 GM TUBE TP SCH (08:55)
[2018-10-22] MEDS: PROSOURCE / PROSTAT (PYXIS) 30 ML UDC GT SCH (08:56)
[2018-10-22] MEDS: DOCUSATE SODIUM LIQ 100 MG/10 ML UDC GT SCH (08:56)
[2018-10-22] MEDS: SODIUM CHLORIDE 1000 MG TABLET.SOL GT SCH ×3 (08:56→18:19)
[2018-10-22] MEDS: LEVETIRACETAM SOL (5 ML) 100 MG/ML UDC GT SCH ×2 (08:56→18:17)
[2018-10-22] MEDS: ASPIRIN 81 MG TAB.CHEW GT SCH (08:57)
[2018-10-22] MEDS: ASCORBIC ACID 500 MG TABLET GT SCH (08:58)
[2018-10-22] MEDS: METOPROLOL TARTRATE 25 MG TABLET GT SCH ×2 (09:00→18:19)
[2018-10-22] MEDS: MULTIVIT W/MINERALS 1 TAB TABLET PO SCH (09:01)
[2018-10-22] MEDS: PANTOPRAZOLE 40 MG TABLET.DR PO SCH (09:02)
[2018-10-22] MEDS: ENOXAPARIN SODIUM 40 MG/0.4 ML DISP.SYRIN SQ SCH (09:03)
--- NOTE | 2018-10-22 09:30 | NUR ---
VIRTUAL REALITY SPECIALIST NOTES DUE MEDS GIVEN
--- NOTE | 2018-10-22 10:17 | NUR ---
WOUND CARE CONSULT WOUND CARE RECEIVED CONSULT FOR SACRUM/BILATERAL BUTTOCKS WOUNDS. WOUND CARE WILL DEFER CONSULT AND ALL TREATMENT PLANS TO PLASTIC SURGICAL TEAM WHO ARE CURRENTLY FOLLOWING THIS PATIENT. PATIENT WITH ISAC AT 9, ALL PRESSURE ULCER PREVENTION MEASURES ARE NOTED TO BE IN PLACE. WILL SEE PRN.
[2018-10-22 12:00] VITALS: BP 150/82
--- NOTE | 2018-10-22 12:20 | NUR ---
MAIL DISTRIBUTION CLERK NOTES ACCUCHECK DONE. BS 195 MG/DL. 3 UNITS HUM R GIVEN PER SS
[2018-10-22] MEDS: GLUCERNA 1.2 1,000 ML BOTTLE GT PRN (14:51)
[2018-10-22] MEDS: IV NS 0.9% 1,000 ML IV PRN (15:12)
[2018-10-22] MEDS: SOD FERRIC GLUC 125 MG in IV NS 0.9% 100 ML IV SCH (15:46)
[2018-10-22 16:00] VITALS: BP 150/81
[2018-10-22] MEDS ORDERED: LIDOCAINE 1%-EPI 1:100,000 20 ML VIAL TP ONE (16:30)
[2018-10-22] MEDS: ZINC SULFATE 220 MG CAPSULE GT SCH (18:18)
--- NOTE | 2018-10-22 18:28 | NUR ---
RATE MARKER NOTES ACCUCHECK DONE. BS 203 MG/DL. 4 UNITS HUM R GIVEN PER SS
--- NOTE | 2018-10-22 19:08 | NUR ---
MANAGED CARE NURSE CLOSING NOTES: PATIENT RESTING IN BED, OBTUNDED, TRACH TO [facility] VENT, SETTINGS ORDERED: TOLERATED WELL. NO SOB NOTED. PATIENT COMFORTABLE IN BED, NOT IN ANY FORM OF DISTRESS, NO SIGNS OF PAIN. SR ON THE MONITOR, ONGOING GTF OF GLUCERNA AT 55CC/HR. O RESIDUAL. IWITH ONGOING IVF OF NS AT 75 CC/HR TO LEFT HAND. SITE CLEAR. MULLEN CATH IN PLACE, DRAINING VIA GRAVITY 800ML OUTPUT. SAFETY MEASURES AND ASPIRATION PRECAUTIONS OBSERVED AND MAINTAINED. HOB ELEVATED TO 45, BED IN LOW AND LOCKED POSITION, CALL LIGHT PLACED WITHIN REACH. ALL NEEDS MET. TURNED AND RESPOSITIONED Q 2 HOURS. PM CARE AND PRESCRIBED WOUND TREATMENT DONE EARLIER. NO OTHER SIGNIFICANT CHANGE IN CONDITION. ENDORSED TO NEXT SHIFT FOR CORA.
[2018-10-22 20:00] VITALS: BP 146/82
--- NOTE | 2018-10-22 20:00 | NUR ---
MACHINE CANDLE MOLDER - NOTES - RECEIVED PATIENT IN BED, OBTUNDED, TRACH TO [facility] VENT, SETTINGS ORDERED: TOLERATING WELL. NO SOB NOTED. PATIENT COMFORTABLE IN BED, NOT ON ANY FORM OF DISTRESS, NO SIGNS OF PAIN. SR ON THE MONITOR, HR AT 80S. GT IN PLACE AND INTACT AND PATENT, PLACEMENT CHECKED. 0 GASTRIC RESIDUAL: ONGOING GTF OF GLUCERNA AT 55CC/HR. IV ACCESS NOTED ON THE L HAND G 22, IN PLACE AND INTACT, WITH ONGOING IVF OF NS AT 75 CC/HR. MULLEN CATH IN PLACE, DRAINING VIA GRAVITY. SAFETY MEASURES AND ASPIRATION PRECAUTIONS OBSERVED AND MAINTAINED. HOB ELEVATED TO 45, BED IN LOW AND LOCKED POSITION, CALL LIGHT PLACED WITHIN REACH WILL CONTINUE TO MONITOR AND ANTICIPATE NEEDS.
[2018-10-22] MEDS: SENNOSIDES 8.6 MG TABLET GT SCH (21:48)
[2018-10-23] VITALS: BP 132/46
[2018-10-23] MEDS: BLOOD SUGAR DIAGNOSTIC 1 EACH STRIP IN SCH ×5 (00:10→23:07)
[2018-10-23] MEDS: INSULIN REGULAR, HUMAN 100 UNIT/ML 3 ML VIAL SQ PRN ×5 (00:39→23:07)
[2018-10-23 04:00] VITALS: BP 146/73
[2018-10-23] MEDS: PIPERACILLIN /TAZOBACTAM 3.375 G in IV D5W 100 ML IV SCH ×2 (04:37→12:05)
[2018-10-23] MEDS: IV NS 0.9% 1,000 ML IV PRN ×2 (05:47→22:58)
--- NOTE | 2018-10-23 07:00 | NUR ---
RN AM SHIFT NOTE PATIENT IN BED, OBTUNDED AND NON RESONSIVE. FC IN PLACE DRAINING WELL. L HAND IV PATENT AND INTACT. SP WOUND DEBRIMENT YESTERDAY AND VITALS WNL. GTUBE PATENT AND INTACT WITH NO RESIDUAL PRESENT. SAFETY MEASURES IN PLACE, SIDE RAILS UP , CONTINUE TO MONITOR.
[2018-10-23 07:49] LABS: CALCIUM, SERUM 7.5 mg/dL (8.5-10.1); CREATININE 0.9 mg/dL (0.6-1.3); POTASSIUM 3.8 mmol/L (3.5-5.1)
[2018-10-23] MEDS: LEVETIRACETAM SOL (5 ML) 100 MG/ML UDC GT SCH ×2 (07:59→17:36)
[2018-10-23] MEDS: PANTOPRAZOLE 40 MG TABLET.DR PO SCH (07:59)
[2018-10-23] MEDS: SODIUM CHLORIDE 1000 MG TABLET.SOL GT SCH ×2 (07:59→12:09)
[2018-10-23] MEDS: ASPIRIN 81 MG TAB.CHEW GT SCH (07:59)
[2018-10-23] MEDS: ASCORBIC ACID 500 MG TABLET GT SCH (07:59)
[2018-10-23 08:00] VITALS: BP_SYST 153; BP_SYST 165; BP_DIAS 43; BP_DIAS 61
[2018-10-23] MEDS: MULTIVIT W/MINERALS 1 TAB TABLET PO SCH (08:00)
[2018-10-23] MEDS: ENOXAPARIN SODIUM 40 MG/0.4 ML DISP.SYRIN SQ SCH (08:01)
[2018-10-23] MEDS: DOCUSATE SODIUM LIQ 100 MG/10 ML UDC GT SCH (08:04)
[2018-10-23] MEDS: HYDROGEL DRESSING 90 GM TUBE TP SCH (08:04)
[2018-10-23] MEDS: PROSOURCE / PROSTAT (PYXIS) 30 ML UDC GT SCH (08:05)
[2018-10-23] MEDS: METOPROLOL TARTRATE 25 MG TABLET GT SCH ×2 (08:16→17:37)
[2018-10-23 08:23] LABS: BASOPHILS % (AUTO) 0.6 % (0.0-2.0); EOSINOPHILS % (AUTO) 3.8 % (0.0-6.0); HEMATOCRIT 25 % (39-51); HEMOGLOBIN 8.2 g/dL (13.5-17.5); LYMPHOCYTES # (AUTO) 1.1 /CMM (0.8-4.8); LYMPHOCYTES % (AUTO) 12.7 % (20.0-44.0); MEAN CORPUSCULAR HGB CONC 33 g/dl (31.0-36.0); MEAN CORPUSCULAR VOLUME 91 fL (80-96); MONOCYTES # (AUTO) 0.9 /CMM (0.1-1.30); MONOCYTES % (AUTO) 10.3 % (2.0-12.0); NEUTROPHILS # (AUTO) 6.2 /CMM (1.8-8.9); NEUTROPHILS % (AUTO) 72.6 % (43.0-81.0); PLATELET COUNT (AUTO) 275 /CMM (150-450); RED BLOOD CELL COUNT(AUTO) 2.78 MIL/uL (4.5-6.0); WHITE BLOOD COUNT (AUTO) 8.6 K/uL (4.3-11.0)
[2018-10-23 12:00] VITALS: BP 137/43
[2018-10-23] MEDS: SOD FERRIC GLUC 125 MG in IV NS 0.9% 100 ML IV SCH (14:00)
[2018-10-23] MEDS: GLUCERNA 1.2 1,000 ML BOTTLE GT PRN (14:55)
[2018-10-23 16:00] VITALS: BP_SYST 120; BP_SYST 126; BP_DIAS 57; BP_DIAS 64
[2018-10-23] MEDS: ZINC SULFATE 220 MG CAPSULE GT SCH (17:37)
--- NOTE | 2018-10-23 19:00 | NUR ---
RN CLOSING NOTE PATIENT OBTUNDED IN BED, IV PATENT GTUBE PATENT NO RESIDUAL. FAMILY AT BEDSIDE. GTUBE DRESSING CHANGED, SACRAL DEBRIMENT DRESSING CHANGED, NO S/S OF INFECTION AT THIS TIME. MULLEN PATENT AND DRAINING WELL. VITALS ALL WNL AT THIS TIME. TOLERATING MEDICATION WELL. MD MADE AWARE OF RT ARM SWELLING AND WARMTH, NO NEW ORDERS AT THIS TIME. CONTINUE TO MONITOR.
--- NOTE | 2018-10-23 19:38 | NUR ---
TUBING MACHINE TENDER NOTE: RECEIVED PT ON BED WITH NO APPARENT DISTRESS NOTED. FAMILY MEMBER AT BEDSIDE. NO FACIAL GRIMACING OR ANY SIGNS OF PAIN NOTED. ON [facility] VENT, SETTINGS ORDERED. SATURATING WELL. GT INTACT AND PATENT, NO RESIDUAL NOTED AT THIS TIME. HEAD OF BED KEPT ELEVATED. SINUS RHYTHM ON TELE MONITOR HR 63BPM. MULLEN CATH INTACT AND PATENT, DRAINING WELL. KEPT CLEAN, DRY AND COMFORTABLE. SAFETY AND FALL PRECAUTIONS OBSERVED AND MAINTAINED. WILL CONTINUE TO MONITOR PT.
[2018-10-23 20:00] VITALS: BP 143/65
[2018-10-23] MEDS: CEFEPIME 2 GM in IV D5W 100 ML IV SCH (20:22)
[2018-10-23] MEDS: SENNOSIDES 8.6 MG TABLET GT SCH (22:20)
--- NOTE | 2018-10-23 23:11 | NUR ---
RT NOTE PT REC'D TRACHED ON [facility] VENT VIA PORTEX SZ 7 ON MECH VENT ON AC MODE. NO RESP DISTRESS OR SOB NOTED. HEAD WOOD GRINDER CUFF PRESSURE NOTED TRACH PATENT AND SECURED. SX'D FOR SMALL AMT OF THICK PALE YELLOW SECRETIONS. ALARMS ARE SET AND AUDIBLE. VENT PLUGGED INTO RED OUTLET. AMBU BAG BEDSIDE. WILL CONTINUE TO MONITOR CLOSELY. Addendum: 10/23/18 at 2312 by REBA WALKER RT Amended: Links added.
[2018-10-24] VITALS (9 sets, daily range): BP systolic 138–154; BP diastolic 66–84
[2018-10-24] MEDS: BLOOD SUGAR DIAGNOSTIC 1 EACH STRIP IN SCH ×4 (05:31→23:51)
[2018-10-24] MEDS: INSULIN REGULAR, HUMAN 100 UNIT/ML 3 ML VIAL SQ PRN ×3 (05:32→23:55)
[2018-10-24 06:31] LABS: BASOPHILS # (AUTO) 0.1 /CMM (0.0-0.2); BASOPHILS % (AUTO) 0.7 % (0.0-2.0); EOSINOPHILS % (AUTO) 3.9 % (0.0-6.0); HEMATOCRIT 26 % (39-51); HEMOGLOBIN 8.6 g/dL (13.5-17.5); LYMPHOCYTES # (AUTO) 1.2 /CMM (0.8-4.8); LYMPHOCYTES % (AUTO) 13.4 % (20.0-44.0); MEAN CORPUSCULAR HGB CONC 34 g/dl (31.0-36.0); MEAN CORPUSCULAR VOLUME 91 fL (80-96); MONOCYTES % (AUTO) 11.1 % (2.0-12.0); NEUTROPHILS # (AUTO) 6.3 /CMM (1.8-8.9); NEUTROPHILS % (AUTO) 70.9 % (43.0-81.0); PLATELET COUNT (AUTO) 328 /CMM (150-450); RED BLOOD CELL COUNT(AUTO) 2.84 MIL/uL (4.5-6.0)
--- NOTE | 2018-10-24 06:33 | NUR ---
GEOSPATIAL ENGINEER NOTE: NO CHANGES NOTED THROUGHOUT THE SHIFT. NO APPARENT DISTRESS NOTED. NO FACIAL GRIMACING OR ANY SIGNS OF PAIN NOTED. SINUS RHYTHM ON TELE MONITOR HR 69BPM. GT INTACT AND PATENT, NO RESIDUAL NOTED AT THIS TIME. MULLEN CATH INTACT, DRAINED 800ML OF URINE OUTPUT. KEPT CLEAN, DRY AND COMFORTABLE. SAFETY AND FALL PRECAUTIONS OBSERVED AND MAINTAINED. WILL ENDORSE TO DAY SHIFT RN FOR CONTINUITY OF CARE.
[2018-10-24 07:10] LABS: CALCIUM, SERUM 7.6 mg/dL (8.5-10.1); CREATININE 0.9 mg/dL (0.6-1.3); POTASSIUM 3.3 mmol/L (3.5-5.1)
[2018-10-24 08:27] LABS: BAND % (MANUAL) 1 % (0.0-5.0); EOSINOPHILS % (MANUAL) 4 % (0-4); LYMPHOCYTES % (MANUAL) 9 % (16-48); MONOCYTES % (MANUAL) 17 % (0-11.0); NEUTROPHILS % (MANUAL) 69 (42-76)
[2018-10-24] MEDS: CEFEPIME 2 GM in IV D5W 100 ML IV SCH ×2 (08:36→20:14)
[2018-10-24] MEDS: ASCORBIC ACID 500 MG TABLET GT SCH (09:18)
[2018-10-24] MEDS: DOCUSATE SODIUM LIQ 100 MG/10 ML UDC GT SCH (09:18)
[2018-10-24] MEDS: MULTIVIT W/MINERALS 1 TAB TABLET PO SCH (09:19)
[2018-10-24] MEDS: PANTOPRAZOLE 40 MG/PACK PACK GT SCH (09:19)
[2018-10-24] MEDS: METOPROLOL TARTRATE 25 MG TABLET GT SCH ×2 (09:19→17:39)
[2018-10-24] MEDS: ASPIRIN 81 MG TAB.CHEW GT SCH (09:19)
[2018-10-24] MEDS: LEVETIRACETAM SOL (5 ML) 100 MG/ML UDC GT SCH ×2 (09:20→17:39)
[2018-10-24] MEDS: ENOXAPARIN SODIUM 40 MG/0.4 ML DISP.SYRIN SQ SCH (09:21)
[2018-10-24] MEDS: PROSOURCE / PROSTAT (PYXIS) 30 ML UDC GT SCH (10:14)
[2018-10-24] MEDS ORDERED: POTASSIUM CHLORIDE 20 MEQ POWDER PACKET GT SCH (11:00)
--- NOTE | 2018-10-24 11:10 | NUR ---
Dr Edmonds in and seen patient and orders payam made for k level 3.3.
[2018-10-24] MEDS: POTASSIUM CL. PREMIX PERIPHER. 50 ML IV SCH ×3 (11:55→15:07)
[2018-10-24] MEDS: HYDROGEL DRESSING 90 GM TUBE TP SCH (11:56)
--- NOTE | 2018-10-24 13:51 | NUR ---
k rider 1st bag consumed ,second bag of 10 meq started at 50ml/hour
[2018-10-24] MEDS: SOD FERRIC GLUC 125 MG in IV NS 0.9% 100 ML IV SCH (14:49)
--- NOTE | 2018-10-24 15:10 | NUR ---
second unit of krider consumed 10 meq and the third bag is strted, tolerated the procedure
[2018-10-24] MEDS: ZINC SULFATE 220 MG CAPSULE GT SCH (17:38)
[2018-10-24] MEDS: IV NS 0.9% 1,000 ML IV PRN (17:44)
--- NOTE | 2018-10-24 19:00 | NUR ---
ADMITTING SUPERVISOR NOTE: RECEIVED PT, RESTING COMFORTABLY, NO S/S OF ACUTE DISTRESS NOTED. RESP EVEN AND UNLABORED. TRACH INTACT PATENT, CONNECTED TO VENT WITH PRESCRIBED SETTINGS . FAMILY MEMBER AT BEDSIDE. NO S/S OF PAIN OR DISCOMFORT NOTED, NO FACIAL GRIMACING NOTED. SATURATING 96. GT SITE NOTED LEAKING AND EXCORIATED. WILL MONITOR SITE. NO RESIDUAL NOTED AT THIS TIME. HEAD OF BED KEPT ELEVATED. IV SITE ON LEFT HAND NOTED WITH NO S/S OF INFECTION AND INFILTRATION. FLUSHED WITH NS. MULLEN CATH INTACT AND PATENT, DRAINING WELL WITH CLEAR YELLOW URINE. KEPT CLEAN, DRY AND COMFORTABLE. SAFETY MAINTAINED. WILL CONTINUE TO MONITOR PT.
[2018-10-24] MEDS: SENNOSIDES 8.6 MG TABLET GT SCH (23:45)
[2018-10-25] VITALS: BP 146/67
[2018-10-25 04:00] VITALS: BP 126/66
[2018-10-25] MEDS: BLOOD SUGAR DIAGNOSTIC 1 EACH STRIP IN SCH ×4 (06:25→23:28)
[2018-10-25] MEDS: INSULIN REGULAR, HUMAN 100 UNIT/ML 3 ML VIAL SQ PRN ×3 (06:27→17:38)
--- NOTE | 2018-10-25 06:48 | NUR ---
TELE/RN EXIT NOTES PT, RESTING COMFORTABLY, NO S/S OF ACUTE DISTRESS NOTED. RESP EVEN AND UNLABORED. TRACH INTACT PATENT, CONNECTED TO VENT WITH PRESCRIBED SETTINGS . NO S/S OF PAIN OR DISCOMFORT NOTED, NO FACIAL GRIMACING NOTED. SATURATING 98. HEAD OF BED KEPT ELEVATED. IV SITE ON LEFT HAND NOTED WITH NO S/S OF INFECTION AND INFILTRATION. FLUSHED WITH NS. MULLEN CATH INTACT AND PATENT, DRAINING WELL WITH CLEAR YELLOW URINE. KEPT CLEAN, DRY AND COMFORTABLE. SAFETY MAINTAINED. ENDORSED TO AM SHIFT NURSE TO CONTINUE TO MONITOR.
[2018-10-25 07:07] LABS: CALCIUM, SERUM 7.9 mg/dL (8.5-10.1); CREATININE 0.9 mg/dL (0.6-1.3); POTASSIUM 3.6 mmol/L (3.5-5.1)
[2018-10-25] MEDS: IV NS 0.9% 1,000 ML IV PRN (07:25)
[2018-10-25 08:00] VITALS: BP 132/64
[2018-10-25] MEDS: LEVETIRACETAM SOL (5 ML) 100 MG/ML UDC GT SCH ×2 (08:08→17:20)
[2018-10-25] MEDS: DOCUSATE SODIUM LIQ 100 MG/10 ML UDC GT SCH (08:08)
[2018-10-25] MEDS: MULTIVIT W/MINERALS 1 TAB TABLET PO SCH (08:08)
[2018-10-25] MEDS: ASCORBIC ACID 500 MG TABLET GT SCH (08:08)
[2018-10-25] MEDS: PANTOPRAZOLE 40 MG/PACK PACK GT SCH (08:10)
[2018-10-25] MEDS: METOPROLOL TARTRATE 25 MG TABLET GT SCH ×2 (08:10→17:20)
[2018-10-25] MEDS: ASPIRIN 81 MG TAB.CHEW GT SCH (08:10)
[2018-10-25] MEDS: ENOXAPARIN SODIUM 40 MG/0.4 ML DISP.SYRIN SQ SCH (08:12)
[2018-10-25] MEDS: HYDROGEL DRESSING 90 GM TUBE TP SCH (08:14)
[2018-10-25] MEDS: PROSOURCE / PROSTAT (PYXIS) 30 ML UDC GT SCH (08:20)
[2018-10-25 08:21] LABS: BASOPHILS # (AUTO) 0.1 /CMM (0.0-0.2); BASOPHILS % (AUTO) 0.6 % (0.0-2.0); EOSINOPHILS % (AUTO) 4.6 % (0.0-6.0); HEMATOCRIT 23 % (39-51); HEMOGLOBIN 7.6 g/dL (13.5-17.5); LYMPHOCYTES # (AUTO) 0.9 /CMM (0.8-4.8); LYMPHOCYTES % (AUTO) 9.5 % (20.0-44.0); MEAN CORPUSCULAR HGB CONC 33 g/dl (31.0-36.0); MEAN CORPUSCULAR VOLUME 91 fL (80-96); MONOCYTES # (AUTO) 0.9 /CMM (0.1-1.30); MONOCYTES % (AUTO) 10.5 % (2.0-12.0); NEUTROPHILS # (AUTO) 6.7 /CMM (1.8-8.9); NEUTROPHILS % (AUTO) 74.8 % (43.0-81.0); PLATELET COUNT (AUTO) 290 /CMM (150-450); RED BLOOD CELL COUNT(AUTO) 2.52 MIL/uL (4.5-6.0)
[2018-10-25 08:46] LABS: EOSINOPHILS % (MANUAL) 3 % (0-4); LYMPHOCYTES % (MANUAL) 11 % (16-48); MONOCYTES % (MANUAL) 10 % (0-11.0); NEUTROPHILS % (MANUAL) 76 (42-76)
[2018-10-25] MEDS: CEFEPIME 2 GM in IV D5W 100 ML IV SCH ×2 (09:16→20:11)
--- NOTE | 2018-10-25 09:47 | NUR ---
received pt from news technical director, obtunded, on the vent, SR, lungs congested, non pitting edema, GT to feeding tolerates well, f/c good output, v/s stable, no pain, pt turned and repositioned.
[2018-10-25 12:00] VITALS: BP 131/68
[2018-10-25 16:00] VITALS: BP 164/77
--- NOTE | 2018-10-25 16:09 | NUR ---
pt is resting in the bed, obtunded, v/s stable, no pain, tolerates feeding, good urine output, pt cleaned, changed and repositioned q2hrs.
[2018-10-25] MEDS: ZINC SULFATE 220 MG CAPSULE GT SCH (17:20)
[2018-10-25 20:00] VITALS: BP_SYST 115; BP_SYST 157; BP_DIAS 59; BP_DIAS 83
--- NOTE | 2018-10-25 20:29 | NUR ---
RN OPENING NOTES: RECIEVED PT FROM AM SHIFT. ON VENT OBTUNDED, LUNGS SLIGHTY CONGESTED. NO RESIDUAL. TOLERATING WELL. IV AND MULLEN IN TACT. WILL CONTINUE TO MONITER AND CONTINUE PLAN OF CARE.
[2018-10-25] MEDS: SENNOSIDES 8.6 MG TABLET GT SCH (21:15)
[2018-10-26] VITALS: BP 142/70
[2018-10-26] MEDS ORDERED: DEXTROSE 50%-WATER 50 ML DISP.SYRIN IV PRN
--- NOTE | 2018-10-26 | NUR ---
VP SCIENTIFIC AFFAIRS NOTES BLOOD SUGAR CHECKED AT 12MN IS 182 MG/DL 3 UNITS OF REGULAR INSULIN GIVEN ORDER PER SLIDING SCALE SPOKE TO DR JAIN WITH ORDER D/C PREVIOUS ACCUCHECK FOR ACHS CHANGED TO ACCUCHECK Q 6 HRS ORDER NOTED AND CARRIED OUT,WILL CHERCKED BLOOD SUGAR AGAIN AT 6AM ,PTS ON GT FEEDING NO RESIDUAL NOTED WILL CONTINUE TO MONITOR PTS.
[2018-10-26] MEDS: INSULIN REGULAR, HUMAN 100 UNIT/ML 3 ML VIAL SQ PRN ×3 (00:24→17:19)
[2018-10-26] MEDS: IV NS 0.9% 1,000 ML IV PRN ×2 (02:41→21:25)
[2018-10-26] MEDS: GLUCERNA 1.2 1,000 ML BOTTLE GT PRN ×2 (02:58→23:56)
[2018-10-26 04:00] VITALS: BP 132/71
[2018-10-26] MEDS: BLOOD SUGAR DIAGNOSTIC 1 EACH STRIP IN SCH ×5 (06:04→23:54)
--- NOTE | 2018-10-26 06:22 | NUR ---
JOB RECRUITER CLOSING NOTES: PATIENT IN BED OBTUNDED. PT IS NORMAL SINUS RYTHM. NO SOB OR ACUTE DISTRESS NOTED. NO FACIAL GRIMACES OR MOANING NOTED. GT INFUSING GLUCERNA 1.2 @ 55 ML/HR. W/ NO RESIDUAL NOTED. MULLEN INTACT AND PATENT DRAINING W/ SLIGHT PINKISH TINGED URINE. PATIENT IS CONTRACTED BUE/BLE. GT SITE REDNESS NOTED. ON MECH. VENT. TOLERATED SETTING WELL W/ AMBU BAG AT BEDSIDE PLUGGED IN RED OUTLET. SAFETY MEASURES IN PLACE, BED IN LOW LOCKED POSITION. CARE ENDORSED TO NIGHT AM NURSE.
--- NOTE | 2018-10-26 07:18 | NUR ---
GEAR ROOM KEEPER NOTES: PATIENT IN BED OBTUNDED. PT IS NORMAL SINUS RYTHM. NO SOB OR ACUTE DISTRESS NOTED. NO FACIAL GRIMACES OR MOANING NOTED. GT INFUSING GLUCERNA 1.2 @ 55 ML/HR. W/ NO RESIDUAL NOTED. MULLEN INTACT AND PATENT DRAINING W/ YELLOW COLOR URINE. PATIENT IS CONTRACTED BUE/BLE. ON MECH. VENT. TOLERATED SETTING WELL W/ AMBU BAG AT BEDSIDE PLUGGED IN RED OUTLET. SAFETY MEASURES IN PLACE, BED IN LOW LOCKED POSITION. WILL CONT TO MONITOR CLOSELY
[2018-10-26 07:29] LABS: BASOPHILS # (AUTO) 0.1 /CMM (0.0-0.2); BASOPHILS % (AUTO) 0.7 % (0.0-2.0); EOSINOPHILS % (AUTO) 4.2 % (0.0-6.0); HEMATOCRIT 23 % (39-51); HEMOGLOBIN 7.8 g/dL (13.5-17.5); LYMPHOCYTES # (AUTO) 1.3 /CMM (0.8-4.8); LYMPHOCYTES % (AUTO) 14.9 % (20.0-44.0); MEAN CORPUSCULAR HGB CONC 34 g/dl (31.0-36.0); MEAN CORPUSCULAR VOLUME 90 fL (80-96); MONOCYTES # (AUTO) 0.8 /CMM (0.1-1.30); MONOCYTES % (AUTO) 9.2 % (2.0-12.0); NEUTROPHILS # (AUTO) 6.4 /CMM (1.8-8.9); PLATELET COUNT (AUTO) 306 /CMM (150-450); RED BLOOD CELL COUNT(AUTO) 2.55 MIL/uL (4.5-6.0)
[2018-10-26] MEDS: CEFEPIME 2 GM in IV D5W 100 ML IV SCH ×2 (07:41→20:02)
[2018-10-26 07:44] LABS: CALCIUM, SERUM 7.7 mg/dL (8.5-10.1); POTASSIUM 3.1 mmol/L (3.5-5.1)
[2018-10-26 08:00] VITALS: BP 128/78
[2018-10-26] MEDS: ASPIRIN 81 MG TAB.CHEW GT SCH (09:05)
[2018-10-26] MEDS: DOCUSATE SODIUM LIQ 100 MG/10 ML UDC GT SCH (09:05)
[2018-10-26] MEDS: LEVETIRACETAM SOL (5 ML) 100 MG/ML UDC GT SCH ×2 (09:05→16:28)
[2018-10-26] MEDS: MULTIVIT W/MINERALS 1 TAB TABLET PO SCH (09:07)
[2018-10-26] MEDS: ASCORBIC ACID 500 MG TABLET GT SCH (09:07)
[2018-10-26] MEDS: METOPROLOL TARTRATE 25 MG TABLET GT SCH ×2 (09:07→16:28)
[2018-10-26] MEDS: PANTOPRAZOLE 40 MG/PACK PACK GT SCH (09:07)
[2018-10-26] MEDS: ENOXAPARIN SODIUM 40 MG/0.4 ML DISP.SYRIN SQ SCH (09:11)
[2018-10-26] MEDS: HYDROGEL DRESSING 90 GM TUBE TP SCH (09:12)
[2018-10-26] MEDS: PROSOURCE / PROSTAT (PYXIS) 30 ML UDC GT SCH (09:13)
[2018-10-26 09:25] LABS: BAND % (MANUAL) 2 % (0.0-5.0); LYMPHOCYTES % (MANUAL) 13 % (16-48); MONOCYTES % (MANUAL) 5 % (0-11.0); MYELOCYTES % 6 % (0-0); NEUTROPHILS % (MANUAL) 74 (42-76)
--- NOTE | 2018-10-26 10:00 | NUR ---
SCIENCE WRITER NOTE MAD A BM, KEEP CLEAN DRY ,TURN, REPOSITION
[2018-10-26] MEDS: POTASSIUM CL. PREMIX PERIPHER. 50 ML IV SCH ×4 (10:27→13:52)
--- NOTE | 2018-10-26 11:43 | NUR ---
radiotelephone technical operator note dr graham aware that k 3.1 replaced doing at this time with 40 meq kcl iv
[2018-10-26 12:00] VITALS: BP 149/81
--- NOTE | 2018-10-26 13:00 | NUR ---
FORMS ANALYSIS MANAGER NOTE TURN REPOSITION TRACH SUCTION DONE , WILL CONT TO MONITOR CLOSELY
[2018-10-26 16:00] VITALS: BP 147/72
[2018-10-26] MEDS: ZINC SULFATE 220 MG CAPSULE GT SCH (17:10)
--- NOTE | 2018-10-26 17:34 | NUR ---
SHINGLES ROOFER NOTE FAMILY AT BEDSIDE, BLOOD SUGAR CHECKED 250 MG\ DL ,WILL BE GIVEN COVERAGE WITH INSULIN , ALL NEEDS ATTENDED, WILL CONT TO MONITOR CLOSELY
--- NOTE | 2018-10-26 19:00 | NUR ---
RN NOTES RECEIVED PATIENT ON CONTACT ISOLATION(CRKP), WITH TRACHE TO THE VENTILATOR ON AC MODE,NOT IN ANY DISTRESS.STUPOROUS,+ COUGH AND GAG, OPENS EYES,GRIMACES AND WITHDRAWS TO PAIN,CONTRACTURES ON ALL EXTREMITIES. WITH ON GOING FEEDING VIA G TUBE, ASPIRATION PRECAUTION OBSERVED, COMFORT CARE DONE,NEEDS ATTENDED.
[2018-10-26 20:00] VITALS: BP 135/77
[2018-10-26] MEDS: SENNOSIDES 8.6 MG TABLET GT SCH (21:26)
[2018-10-27] VITALS: BP 141/73
[2018-10-27] MEDS: INSULIN REGULAR, HUMAN 100 UNIT/ML 3 ML VIAL SQ PRN ×5 (00:04→23:11)
[2018-10-27 04:00] VITALS: BP 147/90
[2018-10-27] MEDS: BLOOD SUGAR DIAGNOSTIC 1 EACH STRIP IN SCH ×4 (05:46→23:09)
--- NOTE | 2018-10-27 06:00 | NUR ---
RN NOTES STABLE ALL NIGHT ,NO EPISODE OF DESATUARATION OR AGITATION OR SHORTNESS OF BREATH.TOLERATING FEEDING WELL. NEURO STATUS REMAINS UNCHANGED.
--- NOTE | 2018-10-27 07:00 | NUR ---
REPORT GIVEN TO WILDA GARRIDO ,PATIENT REMAINS STABLE.
[2018-10-27 07:08] LABS: BASOPHILS # (AUTO) 0.1 /CMM (0.0-0.2); BASOPHILS % (AUTO) 0.8 % (0.0-2.0); EOSINOPHILS % (AUTO) 4.5 % (0.0-6.0); HEMATOCRIT 23 % (39-51); HEMOGLOBIN 7.5 g/dL (13.5-17.5); LYMPHOCYTES # (AUTO) 1.1 /CMM (0.8-4.8); LYMPHOCYTES % (AUTO) 13.1 % (20.0-44.0); MEAN CORPUSCULAR HGB CONC 33 g/dl (31.0-36.0); MEAN CORPUSCULAR VOLUME 90 fL (80-96); MONOCYTES # (AUTO) 0.9 /CMM (0.1-1.30); MONOCYTES % (AUTO) 10.5 % (2.0-12.0); NEUTROPHILS # (AUTO) 5.9 /CMM (1.8-8.9); NEUTROPHILS % (AUTO) 71.1 % (43.0-81.0); PLATELET COUNT (AUTO) 288 /CMM (150-450); RED BLOOD CELL COUNT(AUTO) 2.54 MIL/uL (4.5-6.0); WHITE BLOOD COUNT (AUTO) 8.3 K/uL (4.3-11.0)
--- NOTE | 2018-10-27 07:16 | NUR ---
PRODUCTION LINE WELDER NOTES: PATIENT IN BED OBTUNDED. PT IS NORMAL SINUS RYTHM. NO SOB OR ACUTE DISTRESS NOTED. NO FACIAL GRIMACES NOTED. GT INFUSING GLUCERNA 1.2 @ 55 ML/HR. W/ NO RESIDUAL NOTED. MULLEN INTACT AND PATENT DRAINING W/ YELLOW COLOR URINE. PATIENT IS CONTRACTED BUE/BLE. ON MECH. VENT. TOLERATED SETTING WELL W/ AMBU BAG AT BEDSIDE PLUGGED IN RED OUTLET. SAFETY MEASURES IN PLACE, BED IN LOW LOCKED POSITION. WILL CONT TO MONITOR CLOSELY, PATIENT WITH TRACH TO VENT SETTING ORDERED, AMBU BAG AT HOB AT ALL TIME .MIDLINE ROHITH IN PLACE .ON IVF ORDERED WILL CONT TO MONITOR CLOSELY
[2018-10-27 07:27] LABS: CALCIUM, SERUM 7.7 mg/dL (8.5-10.1); CREATININE 0.9 mg/dL (0.6-1.3)
[2018-10-27] MEDS: CEFEPIME 2 GM in IV D5W 100 ML IV SCH ×2 (07:45→19:29)
[2018-10-27 08:00] VITALS: BP 133/71
[2018-10-27] MEDS: ENOXAPARIN SODIUM 40 MG/0.4 ML DISP.SYRIN SQ SCH (08:49)
[2018-10-27] MEDS: LEVETIRACETAM SOL (5 ML) 100 MG/ML UDC GT SCH ×2 (08:51→16:14)
[2018-10-27] MEDS: DOCUSATE SODIUM LIQ 100 MG/10 ML UDC GT SCH (08:52)
[2018-10-27] MEDS: HYDROGEL DRESSING 90 GM TUBE TP SCH (08:52)
[2018-10-27] MEDS: METOPROLOL TARTRATE 25 MG TABLET GT SCH ×2 (08:52→16:15)
[2018-10-27] MEDS: ASCORBIC ACID 500 MG TABLET GT SCH (08:52)
[2018-10-27] MEDS: MULTIVIT W/MINERALS 1 TAB TABLET PO SCH (08:52)
[2018-10-27] MEDS: ASPIRIN 81 MG TAB.CHEW GT SCH (08:52)
[2018-10-27] MEDS: PANTOPRAZOLE 40 MG/PACK PACK GT SCH (08:52)
[2018-10-27] MEDS: PROSOURCE / PROSTAT (PYXIS) 30 ML UDC GT SCH (08:53)
[2018-10-27 09:21] LABS: BAND % (MANUAL) 7 % (0.0-5.0); EOSINOPHILS % (MANUAL) 7 % (0-4); LYMPHOCYTES % (MANUAL) 13 % (16-48); MONOCYTES % (MANUAL) 8 % (0-11.0); MYELOCYTES % 2 % (0-0); NEUTROPHILS % (MANUAL) 63 (42-76)
[2018-10-27] MEDS: POTASSIUM CHLORIDE 20 MEQ POWDER PACKET GT SCH ×2 (10:00→10:50)
[2018-10-27] MEDS: IV NS 0.9% 1,000 ML IV PRN (11:10)
[2018-10-27 12:00] VITALS: BP 133/80
[2018-10-27] MEDS: POTASSIUM CL. PREMIX PERIPHER. 50 ML IV SCH ×6 (12:01→17:36)
--- NOTE | 2018-10-27 12:09 | NUR ---
DOOR TO DOOR FUNDRAISING COLLECTOR NOTE SEEN BY DR GRIMALDO AWARE THAT K 3.0 WITH NEW KCL ORDER GIVEN IV WILL F\U
--- NOTE | 2018-10-27 15:00 | NUR ---
HIGH SCHOOL ART TEACHER NOTE CONT ON G TUBE FEEDING ORDERED, NO RESIDUAL NOTED ,WITH TRACH TO VENT SETTING ORDERED WILL CONT TO MONITOR CLOSELY
[2018-10-27 16:00] VITALS: BP 152/82
[2018-10-27] MEDS: GLUCERNA 1.2 1,000 ML BOTTLE GT PRN (16:37)
[2018-10-27] MEDS: ZINC SULFATE 220 MG CAPSULE GT SCH (17:20)
--- NOTE | 2018-10-27 17:47 | NUR ---
RADIAL ARM SAW OPERATOR NOTE FAMILY AT BEDSIDE, ACCU CHECK DONE ,215 MG\ DL ,WILL GIVE COVERAGE RAS INSULIN , KEEP CLEAN DRY, WILL CONT TO MONITOR CLOSELY
--- NOTE | 2018-10-27 19:39 | NUR ---
RT NOTE PT [facility]D [facility] VIA PORTEX SZ 7 ON MECH VENT ON AC MODE. NO RESP DISTRESS OR SOB NOTED. SANDER OPERATOR CUFF PRESSURE NOTED TRACH PATENT AND SECURED. SX'D FOR SMALL AMT OF THICK PALE YELLOW SECRETIONS. ALARMS ARE SET AND AUDIBLE. VENT PLUGGED INTO RED OUTLET. AMBU BAG BEDSIDE. WILL CONTINUE TO MONITOR CLOSELY. Addendum: 10/27/18 at 1940 by BRADY WINCHESTER RT Amended: Links added.
[2018-10-27 20:00] VITALS: BP 145/78
[2018-10-27] MEDS: ACETAMINOPHEN 650 MG/20.3 ML UDC GT PRN (20:34)
[2018-10-27] MEDS: SENNOSIDES 8.6 MG TABLET GT SCH (21:54)
[2018-10-28] VITALS: BP 146/73
[2018-10-28 04:00] VITALS: BP 141/45
[2018-10-28] MEDS: INSULIN REGULAR, HUMAN 100 UNIT/ML 3 ML VIAL SQ PRN ×2 (05:37→12:09)
[2018-10-28] MEDS: BLOOD SUGAR DIAGNOSTIC 1 EACH STRIP IN SCH ×2 (06:00→11:49)
[2018-10-28 07:04] LABS: POTASSIUM 4.7 mmol/L (3.5-5.1)
--- NOTE | 2018-10-28 07:10 | NUR ---
RN OPENING NOTES RECEIVED BEDSIDE REPORT, PATIENT IN BED OBTUNDED. OPENS EYES. ON TELE MONITOR, SR. HAS GT WITH GLUCERNA RUNNING AT GOAL AT 255 ML/HR. HAS MULLEN WITH CLEAR AND YELLOW URINE. HAS A MIDLINE WITH NS AT 75 ML/HR. PENDING SACRAL DEBRIDEMENT - CONSENT FORM SIGNED IN CHART. NO SIGNS OF ANY PAIN OR SOB. BED LOCKED AND IN LOW POSITION. WILL CONTINUE TO MONITOR
[2018-10-28] MEDS: IV NS 0.9% 1,000 ML IV PRN (07:23)
[2018-10-28 07:43] LABS: BASOPHILS # (AUTO) 0.1 /CMM (0.0-0.2); BASOPHILS % (AUTO) 0.9 % (0.0-2.0); EOSINOPHILS % (AUTO) 5.2 % (0.0-6.0); HEMATOCRIT 26 % (39-51); HEMOGLOBIN 8.5 g/dL (13.5-17.5); LYMPHOCYTES # (AUTO) 1.1 /CMM (0.8-4.8); MEAN CORPUSCULAR HGB CONC 32 g/dl (31.0-36.0); MEAN CORPUSCULAR VOLUME 91 fL (80-96); MONOCYTES # (AUTO) 0.7 /CMM (0.1-1.30); MONOCYTES % (AUTO) 8.8 % (2.0-12.0); NEUTROPHILS % (AUTO) 72.1 % (43.0-81.0); PLATELET COUNT (AUTO) 295 /CMM (150-450); RED BLOOD CELL COUNT(AUTO) 2.89 MIL/uL (4.5-6.0); WHITE BLOOD COUNT (AUTO) 8.4 K/uL (4.3-11.0)
[2018-10-28 08:00] VITALS: BP 129/48
[2018-10-28] MEDS: CEFEPIME 2 GM in IV D5W 100 ML IV SCH (08:16)
[2018-10-28] MEDS: LEVETIRACETAM SOL (5 ML) 100 MG/ML UDC GT SCH (08:17)
[2018-10-28] MEDS: PROSOURCE / PROSTAT (PYXIS) 30 ML UDC GT SCH (08:17)
[2018-10-28] MEDS: MULTIVIT W/MINERALS 1 TAB TABLET PO SCH (08:18)
[2018-10-28] MEDS: DOCUSATE SODIUM LIQ 100 MG/10 ML UDC GT SCH (08:18)
[2018-10-28] MEDS: ASCORBIC ACID 500 MG TABLET GT SCH (08:18)
[2018-10-28] MEDS: ASPIRIN 81 MG TAB.CHEW GT SCH (08:18)
[2018-10-28] MEDS: PANTOPRAZOLE 40 MG/PACK PACK GT SCH (08:18)
[2018-10-28] MEDS: METOPROLOL TARTRATE 25 MG TABLET GT SCH (08:18)
[2018-10-28] MEDS: HYDROGEL DRESSING 90 GM TUBE TP SCH (08:21)
[2018-10-28] MEDS: ENOXAPARIN SODIUM 40 MG/0.4 ML DISP.SYRIN SQ SCH (08:21)
[2018-10-28 09:00] VITALS: BP 129/48
[2018-10-28 11:07] LABS: BAND % (MANUAL) 3 % (0.0-5.0); EOSINOPHILS % (MANUAL) 1 % (0-4); LYMPHOCYTES % (MANUAL) 15 % (16-48); MONOCYTES % (MANUAL) 5 % (0-11.0); MYELOCYTES % 2 % (0-0); NEUTROPHILS % (MANUAL) 74 (42-76)
[2018-10-28] MEDS: GLUCERNA 1.2 1,000 ML BOTTLE GT PRN (11:40)
[2018-10-28 12:00] VITALS: BP 124/62
[2018-10-28] MEDS: ACETAMINOPHEN 650 MG/20.3 ML UDC GT PRN (12:32)
--- NOTE | 2018-10-28 13:30 | NUR ---
GLUE WHEEL OPERATOR NOTES PATIENT WAS PICKED UP BY AMBULANCE. REPORT GIVEN TO ISRAEL MEDRANO, TALKED TO HEMA LUNDBERG. NO SIGNS OF ANY PAIN OR SOB. MIDLINE WAS DC'D. NO IV MEDS TO BE GIVEN AT SNF. STABLE VS.
== END 2018-10-28 13:30 | DRG 853 ==
LOC: ER 20:59 → TELE1 10-19 02:26
PROVIDERS: ADMIT Nurse Practitioner Acute Care; ATTEND Family Medicine
PROC: 5A1955Z Respiratory Ventilation, Greater than 96 Consecutive Hours (ICD-10-PCS; principal; 2018-10-19)
PROC: 30233N1 Transfusion of Nonautologous Red Blood Cells into Peripheral Vein, Percutaneous Approach (ICD-10-PCS; 2018-10-20)
PROC: 0JB70ZZ Excision of Back Subcutaneous Tissue and Fascia, Open Approach (ICD-10-PCS; 2018-10-22)
PROC: 05H633Z Insertion of Infusion Device into Left Subclavian Vein, Percutaneous Approach (ICD-10-PCS; 2018-10-25)
PROC: B547ZZA Ultrasonography of Left Subclavian Vein, Guidance (ICD-10-PCS; 2018-10-25)
DX: A41.9 Sepsis, unspecified organism (principal); L89.153 Pressure ulcer of sacral region, stage 3; L89.323 Pressure ulcer of left buttock, stage 3; L89.313 Pressure ulcer of right buttock, stage 3; J18.9 Pneumonia, unspecified organism; N17.0 Acute kidney failure with tubular necrosis; R53.2 Functional quadriplegia; I21.A1 Myocardial infarction type 2; J96.10 Chronic respiratory failure, unspecified whether with hypoxia or hypercapnia; E87.0 Hyperosmolality and hypernatremia; E87.2 Acidosis; G93.40 Encephalopathy, unspecified; Z99.11 Dependence on respirator [ventilator] status; J98.11 Atelectasis; K94.23 Gastrostomy malfunction; K94.22 Gastrostomy infection; L03.311 Cellulitis of abdominal wall; D63.8 Anemia in other chronic diseases classified elsewhere; E78.5 Hyperlipidemia, unspecified; I25.10 Atherosclerotic heart disease of native coronary artery without angina pectoris; M62.462 Contracture of muscle, left lower leg; M62.461 Contracture of muscle, right lower leg; Z98.890 Other specified postprocedural states; E87.6 Hypokalemia; E86.9 Volume depletion, unspecified; E11.65 Type 2 diabetes mellitus with hyperglycemia; F09 Unspecified mental disorder due to known physiological condition; G40.909 Epilepsy, unspecified, not intractable, without status epilepticus; I11.0 Hypertensive heart disease with heart failure; I50.9 Heart failure, unspecified; R13.10 Dysphagia, unspecified; Z66 Do not resuscitate; Z86.73 Personal history of transient ischemic attack (TIA), and cerebral infarction without residual deficits; Z79.4 Long term (current) use of insulin; L98.419 Non-pressure chronic ulcer of buttock with unspecified severity; Z79.84 Long term (current) use of oral hypoglycemic drugs; Z79.899 Other long term (current) drug therapy; Y83.3 Surgical operation with formation of external stoma as the cause of abnormal reaction of the patient, or of later complication, without mention of misadventure at the time of the procedure; Y82.9 Unspecified medical devices associated with adverse incidents; Y92.129 Unspecified place in nursing home as the place of occurrence of the external cause; L98.9 Disorder of the skin and subcutaneous tissue, unspecified; B96.4 Proteus (mirabilis) (morganii) as the cause of diseases classified elsewhere; B95.5 Unspecified streptococcus as the cause of diseases classified elsewhere
CPT/HCPCS: 31720; 36415; 71045-TC; 74018; 80048-TC; 80053-TC; 80061-TC; 80076-TC; 81000-TC; 82728-TC; 82962-TC; 83540-TC; 83605-TC; 83735-TC; 84100-TC; 84443-TC; 84484-TC; 85025-TC; 85730-TC; 86850-TC; 86921-TC; 87040-TC; 87070-TC; 87081-TC; 87086-TC; 87186-TC; 93307-TC; 94002-TC; 94003-TC; 94760-TC; 94762-TC; 94799-TC; 99082-TC; A4217; A4623; A6248; A6253; A6402; A6403; G0378; J0692; J0696; J1650; J1815; J1953; J2543; J2916; J3480; J3490; J7030; J7050; J7060; P9016-BL; Q9963

== ENCOUNTER 2019-04-02 11:32 | Inpatient (IN) | payer MEDICARE, MEDICAID ==
[~2019-04-02] VITALS: Ht 160 cm; Wt 57.6 kg
[~2019-04-02 11:32] MED LIST changes: +BISA10SU11 RC; -BISA10SU8 RC; -ZINC220T GT; +ZINC220T4 GT
--- NOTE | 2019-04-02 11:59 | NUR ---
PATIENT [facility] FOR GTUBE SITE IMFLAMMATION AND FEVER. PATIENT OBTUNDED. ON TRACH/VENT. RT AT BEDSIDE. NOTED ON MULLEN CATH. PATIENT CONNECTED TO MONITOR. WILL CONTINUE TO MONITOR ACCORDINGLY
[2019-04-02] MEDS ORDERED: PIPERACILLIN /TAZOBACTAM 3.375 G in IV D5W 50 ML IV ONE (12:00)
[2019-04-02] MEDS ORDERED: VANCOMYCIN 1 GM in IV D5W 250 ML IV ONE (12:00)
[2019-04-02] MEDS ORDERED: IV NS 0.9% 1,000 ML BAG IV ONE (12:00)
[2019-04-02 12:11] LABS: BASOPHILS # (AUTO) 0.1 /CMM (0.0-0.2); BASOPHILS % (AUTO) 0.5 % (0.0-2.0); EOSINOPHILS % (AUTO) 3.3 % (0.0-6.0); HEMATOCRIT 29 % (39-51); HEMOGLOBIN 9.4 g/dL (13.5-17.5); LYMPHOCYTES # (AUTO) 2.2 /CMM (0.8-4.8); LYMPHOCYTES % (AUTO) 17.4 % (20.0-44.0); MEAN CORPUSCULAR HGB CONC 33 g/dl (31.0-36.0); MEAN CORPUSCULAR VOLUME 91 fL (80-96); MONOCYTES # (AUTO) 1.5 /CMM (0.1-1.30); MONOCYTES % (AUTO) 12.1 % (2.0-12.0); NEUTROPHILS # (AUTO) 8.2 /CMM (1.8-8.9); NEUTROPHILS % (AUTO) 66.7 % (43.0-81.0); PLATELET COUNT (AUTO) 306 /CMM (150-450); RED BLOOD CELL COUNT(AUTO) 3.19 MIL/uL (4.5-6.0); WHITE BLOOD COUNT (AUTO) 12.4 K/uL (4.3-11.0)
[2019-04-02 12:21] LABS: CALCIUM, SERUM 9.8 mg/dL (8.5-10.1); CARBON DIOXIDE 29 mmol/L (21-32); CHLORIDE 101 mmol/L (98-107); CREATININE 1.7 mg/dL (0.6-1.3); GLUCOSE 172 mg/dL (74-106); POTASSIUM 4.6 mmol/L (3.5-5.1); SODIUM SERUM 138 mmol/L (136-145); UREA NITROGEN, BLOOD 59 mg/dL (7-18)
[2019-04-02 12:26] LABS: ALANINE AMINOTRANSFERASE 20 U/L (12-78); ALBUMIN 3.2 g/dL (3.4-5.0); ALKALINE PHOSPHATASE 96 U/L (46-116); ASPARTATE AMINOTRANSFERASE 16 U/L (15-37); BILIRUBIN,DIRECT 0.1 mg/dL (0.0-0.2); BILIRUBIN,TOTAL 0.2 mg/dL (0.2-1.0); TOTAL PROTEIN, SERUM 8.3 g/dL (6.4-8.2)
[2019-04-02] MEDS ORDERED: METO100T14 PO (12:45)
[2019-04-02] MEDS ORDERED: FAMO-131 PEG (12:47)
[2019-04-02] MEDS ORDERED: NUTR1PAC14 GT (12:47)
[2019-04-02] MEDS ORDERED: METO-295 GT (12:47)
[2019-04-02] MEDS ORDERED: CRAN3875 GT (12:47)
--- NOTE | 2019-04-02 12:47 | NUR ---
PAGED [employer].
--- NOTE | 2019-04-02 12:49 | NUR ---
PLACED A CALL TO [facility] [phone], SPOKE TO JIMMY (NURSE), REVIEWED AND VERIFIED PT'S CURRENT MEDICATIONS.
--- NOTE | 2019-04-02 12:52 | NUR ---
CALLED NURSING SUP FOR TELE BED.
--- NOTE | 2019-04-02 13:43 | NUR ---
BED ASSIGN 106
--- NOTE | 2019-04-02 13:49 | NUR ---
PAGED EPIC SECOND TIME.
--- NOTE | 2019-04-02 14:20 | NUR ---
PLACED CALL TO [facility] AND GAVE REPORT TO CRISTOBAL GARRIDO
[2019-04-02 14:43] LABS: APPEARANCE,URINE Clear (CLEAR); BILIRUBIN,URINE Negative (NEGATIVE); BLOOD, URINE Small Ery/uL (NEGATIVE); COLOR,URINE Yellow (YELLOW); KETONES,URINE Negative (NEGATIVE); LEUKOCYTE ESTERASE ,URINE Small (NEGATIVE); NITRITE, URINE Negative (NEGATIVE); PROTEIN,URINE >=300 mg/dl (NEGATIVE); UGLUCOSE Negative (NEGATIVE); UROBILINOGEN,URINE 0.2 EU/dL (0.2)
[2019-04-02 14:45] LABS: BACTERIA,URINE Rare /HPF (None Seen); HYALINE CASTS, URINE Few /LPF (None Seen); PH,URINE >9.0 (5.0-8.0); SQUAMOUS EPITHELIAL CELL,UR Rare /HPF (None Seen)
[2019-04-02] MEDS ORDERED: BISACODYL SUPP (10 MG) 10 MG/SUPP.RECT SUPP.RECT RC PRN (15:00)
[2019-04-02] MEDS ORDERED: LORAZEPAM 1 MG TABLET GT PRN (15:00)
[2019-04-02] MEDS ORDERED: METOCLOPRAMIDE HCL 10 MG TABLET GT PRN (15:00)
[2019-04-02] MEDS ORDERED: ACETAMINOPHEN 160 MG/5 ML GT PRN (15:00)
[2019-04-02] MEDS ORDERED: ONDANSETRON HCL/PF 4 MG/2 ML VIAL IVP PRN (15:00)
[2019-04-02] MEDS ORDERED: NA PHOS,M-B/NA PHOS,DI-BA 1 EA ENEMA RC PRN (15:00)
[2019-04-02] MEDS ORDERED: DEXTROSE 50%-WATER 50 ML DISP.SYRIN IV PRN (15:00)
[2019-04-02] MEDS ORDERED: MAGNESIUM HYDROXIDE 30 ML UDC GT PRN (15:00)
[2019-04-02] MEDS ORDERED: MORPHINE SULFATE INJ 2 MG/ML DISP.SYRIN IV PRN (15:00)
[2019-04-02] MEDS ORDERED: IPRATROPIUM NEB FS 0.5 MG/2.5 ML AMPUL.NEB NEB PRN (15:00)
--- NOTE | 2019-04-02 15:29 | NUR ---
PATIENT TRASNFERRED TO 106-1 VIA ACLS PROTOCOL WITH RT. NO ACUTE DISTRESS. RECEIVING RN PRESENT. MULLEN REMAINS IN PLACE. PATIENT TOLERATED WELL
[2019-04-02] MEDS ORDERED: ACETAMINOPHEN 650 MG/20.3 ML UDC GT PRN (15:30)
[2019-04-02] MEDS ORDERED: FEE PK DOSING 1 MIN EA MC ONE ×2 (15:41→15:51)
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
--- NOTE | 2019-04-02 17:40 | NUR ---
COPYHOLDER NOTE PER DR CLARK PT IS TO BE NPO. JUST PAGED HIM TO CLARIFY IF PT NEEDS TO BE NPO EXCEPT MEDS OR NOT AND IF GTUBE FEEDING CAN BE STARTED.
--- NOTE | 2019-04-02 17:55 | NUR ---
COMMERCIAL PHOTOGRAPHER NOTE PER DR GRULLON AND DR JAIN G TUBE FEEDING CAN BE STARTED. WOUND CONSULT ORDER PLACED.
[2019-04-02 18:00] VITALS: BP 126/83
[2019-04-02] MEDS: BLOOD SUGAR DIAGNOSTIC 1 EACH STRIP IN SCH (18:00)
--- NOTE | 2019-04-02 18:00 | NUR ---
CALLED CENTRAL LINE TO BRING GTUBE FEEDING PUMP.
--- NOTE | 2019-04-02 18:35 | NUR ---
CALLED CENTRAL LINE TWICE TO BRING GTUBE PUMP.
--- NOTE | 2019-04-02 18:36 | NUR ---
CALLED NUTRITION TO BRING GLUCERNA 1.2.
[2019-04-02] MEDS ORDERED: GLUCERNA 1.2 1,000 ML BOTTLE NG PRN (19:00)
--- NOTE | 2019-04-02 19:11 | NUR ---
craniotomy depression on left side noted
--- NOTE | 2019-04-02 19:13 | NUR ---
RN MS NOTE UNABLE TO GIVE THE MEDICATION YET. CENTRAL JUST BROUGHT G TUBE FEEDING PUMP. STILL WAITING FRO THE GLUCERNA TO BE BROUGHT BY NUTRITION TO START THE FEEDING AND MEDICATION. WILL ENDORSE TO PM NURSE TO GIBVE THE MEDS.
--- NOTE | 2019-04-02 19:25 | NUR ---
TELE/RN NOTES PATIENT IN BED, RESTING COMFORTABLY AT THIS TIME, NO S/S OF ACUTE DISTRESS NOTED, RESPIRATION EVEN AND UNLABORED, NO SOB NOTED, TRACH INTACT, PATENT, CONNECTED TO VENT WITH PRESCRIBED SETTINGS, G-TUBE IN PLACE, PATENT, HOB ELEVATED, PATIENT ALERT AND ORIENTED X0, AWAKE, OPEN EYES, NON-VERBAL. F/C IN PLACE, DRAINING WITH CLEAR YELLOW URINE. NO S/S OF PAIN AT THIS TIME, PATIENT ON TELE MONITORING WITH SINUS TACHY. LEFT ARM IV SITE WITH NO S/S OF INFECTION, INFILTRATION. FLUSHED WITH NS. CLEAN AND DRY. SAFETY MAINTAINED, BED AT THE LOWEST LOCKED POSITION. CALL LIGHT WITHIN REACH. . WILL CONTINUE TO MONITOR PER PLAN OF CARE.
[2019-04-02 20:00] VITALS: BP 114/63
[2019-04-02] MEDS: LEVETIRACETAM SOL (5 ML) 100 MG/ML UDC GT SCH (20:35)
[2019-04-02] MEDS: PIPERACILLIN /TAZOBACTAM 2.25 G in IV D5W 50 ML IV SCH (20:36)
[2019-04-02] MEDS: ENOXAPARIN SODIUM 30 MG/0.3 ML DISP.SYRIN SQ SCH (20:36)
[2019-04-02] MEDS: SODIUM CHLORIDE 1000 MG TABLET GT SCH (20:38)
[2019-04-02] MEDS: INSULIN REGULAR, HUMAN 100 UNIT/ML 3 ML VIAL SQ PRN (20:42)
--- NOTE | 2019-04-02 20:53 | NUR ---
WAREHOUSE ADMINISTRATOR CLOSING NOTE PT RESTING COMFORTABLY. NO SIGN OF RESPIRATORY/CARDIAC DISTRESS OR SOB AT THIS TIME. BED LOCKED, LOW, SIDE RIALS UP X3. CALL LIGHT IN REACH. ON VENT AND TRACH. ENDORSED TO PM NURSE FOR CORA.
[2019-04-02] MEDS: IV 1/2NS 1000 ML 1,000 ML IV PRN (20:56)
[2019-04-02] MEDS: METFORMIN 500 MG TABLET GT SCH (21:01)
[2019-04-02] MEDS: INSULIN GLARGINE, 100 UNIT/ML CARTRIDGE SQ SCH (21:17)
[2019-04-02] MEDS: GLUCERNA 1.2 1,000 ML BOTTLE NG PRN (21:23)
[2019-04-02] MEDS: SENNOSIDES 8.6 MG TABLET GT SCH (21:40)
[2019-04-03] VITALS: BP 113/62
[2019-04-03] MEDS: PIPERACILLIN /TAZOBACTAM 2.25 G in IV D5W 50 ML IV SCH ×4 (00:42→18:00)
[2019-04-03] MEDS: BLOOD SUGAR DIAGNOSTIC 1 EACH STRIP IN SCH ×4 (00:42→18:00)
[2019-04-03] MEDS: INSULIN REGULAR, HUMAN 100 UNIT/ML 3 ML VIAL SQ PRN ×4 (00:44→19:59)
--- NOTE | 2019-04-03 03:30 | NUR ---
RT Pt trach remains on [facility] vent on ordered settings. No resp distress noted. Trach secure and patent. Addendum: 04/03/19 at 0331 by EDIL LOPEZ RT Amended: Links added.
[2019-04-03 04:00] VITALS: BP 119/79
[2019-04-03] MEDS: METFORMIN 500 MG TABLET GT SCH (05:38)
[2019-04-03 06:25] LABS: BASOPHILS % (AUTO) 0.4 % (0.0-2.0); EOSINOPHILS % (AUTO) 4.4 % (0.0-6.0); HEMATOCRIT 26 % (39-51); HEMOGLOBIN 8.6 g/dL (13.5-17.5); LYMPHOCYTES # (AUTO) 1.3 /CMM (0.8-4.8); LYMPHOCYTES % (AUTO) 18.3 % (20.0-44.0); MEAN CORPUSCULAR HGB CONC 33 g/dl (31.0-36.0); MEAN CORPUSCULAR VOLUME 89 fL (80-96); MONOCYTES # (AUTO) 0.9 /CMM (0.1-1.30); MONOCYTES % (AUTO) 13.1 % (2.0-12.0); NEUTROPHILS # (AUTO) 4.5 /CMM (1.8-8.9); NEUTROPHILS % (AUTO) 63.8 % (43.0-81.0); PLATELET COUNT (AUTO) 283 /CMM (150-450); RED BLOOD CELL COUNT(AUTO) 2.89 MIL/uL (4.5-6.0); WHITE BLOOD COUNT (AUTO) 7.1 K/uL (4.3-11.0)
[2019-04-03 06:50] LABS: THYROID STIMULATING HORMONE 2.518 uIU/mL (0.358-3.74)
--- NOTE | 2019-04-03 06:57 | NUR ---
TELE/RN NOTES PATIENT REMAINED IN BED, RESTING COMFORTABLY AT THIS TIME, NO S/S OF ACUTE DISTRESS NOTED, BREATHING EVEN AND UNLABORED, NO SOB NOTED, TRACH INTACT, PATENT, CONNECTED TO VENT WITH PRESCRIBED SETTINGS, G-TUBE IN PLACE, PATENT, CONNECTED TO FEEDING ORDERED, HOB ELEVATED, PATIENT ALERT AND ORIENTED X0, AWAKE, OPEN EYES, NON-VERBAL. F/C IN PLACE, DRAINING WITH CLEAR YELLOW URINE WITH OUTPUT OF 1450. NO S/S OF PAIN AT THIS TIME, PATIENT ON TELE MONITORING WITH SINUS TACHY. LEFT ARM IV SITE WITH NO S/S OF INFECTION, INFILTRATION. FLUSHED WITH NS. CLEAN AND DRY. ALL DUE MEDS GIVEN ORDERED, TOLERATED WELL. SAFETY MAINTAINED, BED AT THE LOWEST LOCKED POSITION. CALL LIGHT WITHIN REACH. . WILL ENDORSE TO AM SHIFT NURSE FOR CORA. .
[2019-04-03 07:03] LABS: CREATININE 1.7 mg/dL (0.6-1.3); MAGNESIUM 1.9 mg/dL (1.8-2.4); PHOSPHORUS 3.1 mg/dL (2.5-4.9); POTASSIUM 3.9 mmol/L (3.5-5.1)
[2019-04-03 08:42] VITALS: BP 116/64
[2019-04-03] MEDS: VANCOMYCIN 1 GM in IV D5W 250 ML IV SCH (08:51)
--- NOTE | 2019-04-03 08:54 | NUR ---
RT NOTE RECEIVED PT MECHANICALLY VENTILATED VIA CUFFED TRACHEOSTOMY TUBE. CUFF INFLATED. TRACH TUBE MIDLINE AND SECURE. VENTILATOR SETTINGS PRESCRIBED. ALARMS SET PER PROTOCOL AND AUDIBLE. VENT PLUGGED IN TO RED OUTLET. AMBU BAG AND BACK UP TRACH AT BED SIDE. NO DISTRESS NOTED AT MOMENT. Addendum: 04/03/19 at 0854 by MAYA WESTBROOK RT Amended: Links added.
[2019-04-03] MEDS: ASCORBIC ACID 500 MG TABLET GT SCH (09:29)
[2019-04-03] MEDS: DOCUSATE SODIUM LIQ 100 MG/10 ML UDC GT SCH (09:29)
[2019-04-03] MEDS: LEVETIRACETAM SOL (5 ML) 100 MG/ML UDC GT SCH ×2 (09:29→17:00)
[2019-04-03] MEDS: SODIUM CHLORIDE 1000 MG TABLET GT SCH ×3 (09:29→17:00)
[2019-04-03] MEDS: PANTOPRAZOLE 40 MG VIAL IV SCH (09:29)
[2019-04-03 10:15] LABS: BAND % (MANUAL) 2 % (0.0-5.0); EOSINOPHILS % (MANUAL) 8 % (0-4); LYMPHOCYTES % (MANUAL) 16 % (16-48); MONOCYTES % (MANUAL) 15 % (0-11.0); MYELOCYTES % 1 % (0-0); NEUTROPHILS % (MANUAL) 58 (42-76)
[2019-04-03 12:00] VITALS: BP 130/72
[2019-04-03] MEDS: Z GUARD REMEDY 2 OZ OINT TP SCH ×2 (12:30→21:19)
[2019-04-03] MEDS: HYDROGEL DRESSING 90 GM TUBE TP SCH (12:30)
[2019-04-03 13:51] LABS: CREATININE, URINE 81.1 MG/DL (30.0-125.0); URINE TOTAL PROTEIN 209.8 mg/dL (0-11.9)
[2019-04-03 14:03] LABS: APPEARANCE,URINE CLEAR (CLEAR); BILIRUBIN,URINE NEGATIVE (NEGATIVE); BLOOD, URINE NEGATIVE Ery/uL (NEGATIVE); COLOR,URINE YELLOW (YELLOW); KETONES,URINE NEGATIVE (NEGATIVE); LEUKOCYTE ESTERASE ,URINE SMALL (NEGATIVE); NITRITE, URINE NEGATIVE (NEGATIVE); PROTEIN,URINE 100 mg/dl (NEGATIVE); UGLUCOSE NEGATIVE (NEGATIVE); UROBILINOGEN,URINE 0.2 EU/dL (0.2)
[2019-04-03 14:46] LABS: RBC,URINE 0-3 /HPF (0-2)
[2019-04-03 14:47] LABS: BACTERIA,URINE Few /HPF (None Seen); SQUAMOUS EPITHELIAL CELL,UR Rare /HPF (None Seen)
--- NOTE | 2019-04-03 15:25 | NUR ---
Gastrostomy tube insertion site is leaking medication and glucerna feeding. Held g-tube medication.
[2019-04-03 15:26] LABS: EOSINOPHIL,URINE Rare
[2019-04-03 16:00] VITALS: BP 133/64
--- NOTE | 2019-04-03 17:35 | NUR ---
Cleaned and dry patient gastrostomy tube site leakage. Patient also given bed bath after bowel movement and redressed sacral wound. Request for salma to sign consent as she was at bedside. She refused to sign. New intravenous site needed as patient contracts left arm antecubital site. Harish Barajas RN Addendum: 04/03/19 at 1804 by HARISH BARAJAS RN Patient salma signed consent. Placed in chart. Harish Tai RN
--- NOTE | 2019-04-03 19:25 | NUR ---
TELE/RN NOTES PATIENT IN BED, RESTING COMFORTABLY AT THIS TIME, NO S/S OF ACUTE DISTRESS NOTED, RESPIRATION EVEN AND UNLABORED, NO SOB NOTED, TRACH INTACT, PATENT, CONNECTED TO VENT WITH PRESCRIBED SETTINGS, G-TUBE IN PLACE, LEAKING. HOB ELEVATED, PATIENT ALERT AND ORIENTED X0, AWAKE, OPEN EYES, NON-VERBAL. F/C IN PLACE, DRAINING WITH CLEAR YELLOW URINE. NO S/S OF PAIN AT THIS TIME, PATIENT ON TELE MONITORING WITH SINUS RHYTHM. LEFT ARM IV SITE WITH NO S/S OF INFECTION, INFILTRATION. FLUSHED WITH NS. CLEAN AND DRY. SAFETY MAINTAINED, BED AT THE LOWEST LOCKED POSITION. CALL LIGHT WITHIN REACH. . WILL CONTINUE TO MONITOR PER PLAN OF CARE.
--- NOTE | 2019-04-03 19:55 | NUR ---
Patient intravenous site was not able to be placed times 2 attempts on right wrist. No zosyn administered. Endorsed piggyback medication in refrigerator if needed and intravenous site placed successfully. Harish Tai RN
[2019-04-03 20:00] VITALS: BP 126/81
[2019-04-03] MEDS: ENOXAPARIN SODIUM 30 MG/0.3 ML DISP.SYRIN SQ SCH (21:00)
[2019-04-03] MEDS: SENNOSIDES 8.6 MG TABLET GT SCH (21:07)
--- NOTE | 2019-04-03 21:18 | NUR ---
HOLDING LOVENOX DUE TO PATIENT HAVING SERIAL DEBRIDEMENT OF SACRUM WOUND IN AM
[2019-04-03] MEDS: INSULIN GLARGINE, 100 UNIT/ML CARTRIDGE SQ SCH (21:20)
--- NOTE | 2019-04-03 21:21 | NUR ---
HOLDING LANTUS ORDERED DUE TO HOLDING G-TUBE FEEDING AND PATIENT IS NOT GETTING FLUIDS WITH DEXTROSE AT THIS TIME. WILL FOLLOW UP WITH .
[2019-04-04] VITALS: BP 133/68
[2019-04-04] MEDS: PIPERACILLIN /TAZOBACTAM 2.25 G in IV D5W 50 ML IV SCH ×5 (00:28→23:24)
[2019-04-04] MEDS: BLOOD SUGAR DIAGNOSTIC 1 EACH STRIP IN SCH ×5 (00:28→23:13)
[2019-04-04] MEDS: IV 1/2NS 1000 ML 1,000 ML IV PRN ×2 (00:28→20:21)
[2019-04-04] MEDS: VANCOMYCIN 1 GM in IV D5W 250 ML IV SCH ×2 (03:22→20:20)
[2019-04-04 04:00] VITALS: BP 134/61
[2019-04-04 06:17] LABS: BASOPHILS # (AUTO) 0.1 /CMM (0.0-0.2); BASOPHILS % (AUTO) 0.8 % (0.0-2.0); EOSINOPHILS % (AUTO) 6.5 % (0.0-6.0); HEMATOCRIT 28 % (39-51); HEMOGLOBIN 9.2 g/dL (13.5-17.5); LYMPHOCYTES # (AUTO) 1.5 /CMM (0.8-4.8); LYMPHOCYTES % (AUTO) 22.1 % (20.0-44.0); MEAN CORPUSCULAR HGB CONC 33 g/dl (31.0-36.0); MEAN CORPUSCULAR VOLUME 90 fL (80-96); MONOCYTES # (AUTO) 0.9 /CMM (0.1-1.30); MONOCYTES % (AUTO) 12.5 % (2.0-12.0); NEUTROPHILS # (AUTO) 3.9 /CMM (1.8-8.9); NEUTROPHILS % (AUTO) 58.1 % (43.0-81.0); PLATELET COUNT (AUTO) 299 /CMM (150-450); RED BLOOD CELL COUNT(AUTO) 3.13 MIL/uL (4.5-6.0); WHITE BLOOD COUNT (AUTO) 6.8 K/uL (4.3-11.0)
[2019-04-04 06:40] LABS: ALBUMIN 2.8 g/dL (3.4-5.0); BILIRUBIN,TOTAL 0.3 mg/dL (0.2-1.0); CALCIUM, SERUM 8.8 mg/dL (8.5-10.1); CREATININE 1.5 mg/dL (0.6-1.3); MAGNESIUM 1.8 mg/dL (1.8-2.4); PHOSPHORUS 3.2 mg/dL (2.5-4.9); POTASSIUM 3.7 mmol/L (3.5-5.1); TOTAL PROTEIN, SERUM 8.1 g/dL (6.4-8.2)
--- NOTE | 2019-04-04 07:15 | NUR ---
TELE/RN NOTES PATIENT REMAINED IN BED, RESTING COMFORTABLY AT THIS TIME, NO S/S OF ACUTE DISTRESS NOTED, BREATHING EVEN AND UNLABORED, NO SOB NOTED, TRACH INTACT, PATENT, CONNECTED TO VENT WITH PRESCRIBED SETTINGS, G-TUBE CLAMPED AT THIS TIME, HOB ELEVATED, PATIENT ALERT AND ORIENTED X0, AWAKE, OPEN EYES, NON-VERBAL. F/C IN PLACE, DRAINING WITH CLEAR YELLOW URINE WITH OUTPUT OF 1900. NO S/S OF PAIN AT THIS TIME, PATIENT ON TELE MONITORING WITH SINUS TACHY. LEFT ARM IV SITE WITH NO S/S OF INFECTION, INFILTRATION. FLUSHED WITH NS. CLEAN AND DRY. ALL DUE MEDS GIVEN ORDERED, TOLERATED WELL. SAFETY MAINTAINED, BED AT THE LOWEST LOCKED POSITION. CALL LIGHT WITHIN REACH. . WILL ENDORSE TO AM SHIFT NURSE FOR CORA. .
--- NOTE | 2019-04-04 07:30 | NUR ---
RN OPENING NOTES RECEIVED PATIENT RESTING IN BED COMFORTABLY AT THIS TIME. HE IS OBTUNDED, NON-VERBAL, AND IS NON-AMBULATORY. HE IS MECHANICAL VENT, AC MODE, TOLERATING SETTINGS WELL, NO S/SX OF RESP DISTRESS OR SOB. TELE MONITOR SHOWING SINUS TACHY. PT HAS GTUBE, FEEDING IS CURRENTLY HELD BECAUSE OF LEAK, MD AWARE. L ARM 20 G IS INTACT AND PATENT, INFUSING .45 SALINE AT 75 ML/HR. SAFETY MEASURES HAVE BEEN IMPLEMENTED, CALL LIGHT IS WITHIN REACH, BED IS IN LOWEST AND LOCKED POSITION, SIDE RAILS UP X2, WILL CONTINUE TO MONITOR FOR ANY CHANGES.
[2019-04-04 08:00] VITALS: BP 118/72
[2019-04-04] MEDS: DOCUSATE SODIUM LIQ 100 MG/10 ML UDC GT SCH (09:00)
[2019-04-04] MEDS: SODIUM CHLORIDE 1000 MG TABLET GT SCH ×3 (09:00→16:52)
[2019-04-04] MEDS: ASCORBIC ACID 500 MG TABLET GT SCH (09:00)
[2019-04-04] MEDS: LEVETIRACETAM SOL (5 ML) 100 MG/ML UDC GT SCH ×2 (09:00→16:52)
[2019-04-04] MEDS: Z GUARD REMEDY 2 OZ OINT TP SCH ×2 (09:33→21:48)
[2019-04-04] MEDS: HYDROGEL DRESSING 90 GM TUBE TP SCH (09:33)
[2019-04-04] MEDS: PANTOPRAZOLE 40 MG VIAL IV SCH (09:35)
[2019-04-04 12:00] VITALS: BP 151/77
--- NOTE | 2019-04-04 12:16 | NUR ---
WOUND CARE CONSULT: PT FOLLOWED BY SURGICAL TEAM FOR WOUNDS. DEFER TO SURGICAL TEAM FOR WOUND TREATMENT PLAN. DISCUSSED SKIN PROTECTION WITH NURSING STAFF. PT ON FIRST STEP DAMARISS LOW AIRLOSS MATTRESS. WILL SEE PRN. CURRENT ISAC SCORE IS 9.
--- NOTE | 2019-04-04 13:00 | NUR ---
FEEDING HAS BEEN RESUMED AT 65 ML/HR. WILL MONITOR FOR RESIDUAL AND ANY LEAKAGE FROM THE GTUBE SITE.
--- NOTE | 2019-04-04 14:00 | NUR ---
GTUBE SITE LEAKING SMALL AMOUNTS OF TUBE FEEDING, NOTIFIED
[2019-04-04 16:00] VITALS: BP 151/83
[2019-04-04] MEDS: GLUCERNA 1.2 1,000 ML BOTTLE NG PRN (18:25)
[2019-04-04] MEDS: INSULIN REGULAR, HUMAN 100 UNIT/ML 3 ML VIAL SQ PRN ×2 (18:27→23:14)
--- NOTE | 2019-04-04 19:18 | NUR ---
RN CLOSING NOTES PATIENT IS RESTING COMFORTABLY IN BED, SHOWS NO S/SX OF RESP DISTRESS, SOB, OR PAIN. NO ACUTE CHANGES OCCURRED THROUGHOUT THE SHIFT, VITAL SIGNS HAVE BEEN STABLE, PT NEEDS HAVE BEEN MET. SAFETY MEASURES HAVE BEEN IMPLEMENTED, CALL LIGHT IS WITHIN REACH, BED IS IN LOWEST AND LOCKED POSITION, SIDE RAILS UP X2, PT HAS BEEN ENDORSED TO NIGHTSHIFT RN FOR CONTINUITY OF CARE.
--- NOTE | 2019-04-04 19:30 | NUR ---
LICENSED MASSAGE PRACTITIONER NOTE: RECEIVED PT ON BED OBTUNDED. NO APPARENT DISTRESS NOTED. NO FACIAL GRIMACING OR ANY SIGNS OF PAIN NOTED. ON [facility] VENT, SETTINGS ORDERED. NO SOB NOTED. ON TELE MONITOR SINUS RHYTHM HR 74 BPM. IV ON LEFT ANTECUBITAL #20 INTACT AND PATENT, IVF INFUSING WELL. GT INTACT AND PATENT, NO RESIDUAL NOTED AT THIS TIME, MINIMAL LEAKAGE NOTED AT THE SITE. MULLEN CATH INTACT AND DRAINING WELL. KEPT CLEAN, DRY AND COMFORTABLE. SAFETY AND FALL PRECAUTIONS OBSERVED AND MAINTAINED. WILL CONTINUE TO MONITOR PT.
[2019-04-04 20:00] VITALS: BP 142/68
[2019-04-04] MEDS: SENNOSIDES 8.6 MG TABLET GT SCH (21:47)
[2019-04-04] MEDS: ENOXAPARIN SODIUM 30 MG/0.3 ML DISP.SYRIN SQ SCH (21:48)
[2019-04-04] MEDS: INSULIN GLARGINE, 100 UNIT/ML CARTRIDGE SQ SCH (23:18)
[2019-04-05] VITALS: BP 137/65
--- NOTE | 2019-04-05 00:30 | NUR ---
MANAGER BAKERY NOTE: GT SITE LEAKING, GTF HELD. NO RESIDUAL NOTED AT THIS TIME. WILL CONTINUE TO MONITOR PT.
[2019-04-05 04:00] VITALS: BP 143/73
[2019-04-05] MEDS: BLOOD SUGAR DIAGNOSTIC 1 EACH STRIP IN SCH ×4 (06:18→23:37)
[2019-04-05] MEDS: PIPERACILLIN /TAZOBACTAM 2.25 G in IV D5W 50 ML IV SCH ×3 (06:18→17:06)
[2019-04-05 06:30] LABS: BASOPHILS # (AUTO) 0.1 /CMM (0.0-0.2); BASOPHILS % (AUTO) 0.9 % (0.0-2.0); HEMATOCRIT 29 % (39-51); HEMOGLOBIN 9.4 g/dL (13.5-17.5); LYMPHOCYTES # (AUTO) 1.4 /CMM (0.8-4.8); LYMPHOCYTES % (AUTO) 22.2 % (20.0-44.0); MEAN CORPUSCULAR HGB CONC 33 g/dl (31.0-36.0); MEAN CORPUSCULAR VOLUME 90 fL (80-96); MONOCYTES # (AUTO) 0.8 /CMM (0.1-1.30); MONOCYTES % (AUTO) 12.4 % (2.0-12.0); NEUTROPHILS # (AUTO) 3.6 /CMM (1.8-8.9); NEUTROPHILS % (AUTO) 57.5 % (43.0-81.0); PLATELET COUNT (AUTO) 298 /CMM (150-450); RED BLOOD CELL COUNT(AUTO) 3.19 MIL/uL (4.5-6.0); WHITE BLOOD COUNT (AUTO) 6.3 K/uL (4.3-11.0)
--- NOTE | 2019-04-05 06:39 | NUR ---
SOLUTIONS DEVELOPER NOTE: NO CHANGES NOTED THROUGHOUT THE SHIFT. NO APPARENT DISTRESS NOTED. ON [facility] VENT, SETTINGS ORDERED, NO SOB NOTED. SINUS RHYTHM ON TELE MONITOR HR 99 BPM. BLOOD SUGAR 171 MG/DL, SLIDING SCALE INSULIN NOT GIVEN BECAUSE GTF HELD. MULLEN CATH INTACT AND DRAINING WELL. KEPT CLEAN, DRY AND COMFORTABLE. SAFETY AND FALL PRECAUTIONS OBSERVED AND MAINTAINED. WILL ENDORSE TO DAY SHIFT RN FOR CONTINUITY OF CARE
[2019-04-05 06:41] LABS: CALCIUM, SERUM 8.5 mg/dL (8.5-10.1); CREATININE 1.4 mg/dL (0.6-1.3); MAGNESIUM 2.1 mg/dL (1.8-2.4); POTASSIUM 3.9 mmol/L (3.5-5.1)
--- NOTE | 2019-04-05 07:24 | NUR ---
RN OPENING NOTES RECEIVED PATIENT RESTING IN BED COMFORTABLY, SHOWS NO S/SX OF RESP DISTRESS, PAIN OR SOB. HE IS OBTUNDED, NON-VERBAL, AND BED BOUND. HE IS ON MECHANICAL VENT WITH PORTEX 7 TRACH, TOLERATING SETTINGS WELL. TELE MONITOR SHOWING SR AT 98 BPM. MULLEN CATH IS INTACT AND PATENT. IV SITE ON LAC 20 G INFUSING 1/2 NS AT 75 ML.HR. GTUBE IS LEAKING PER NIGHTSHIFT RN, FEEDING AND GTUBE MEDS HAVE BEEN HELD. SAFETY MEASURES HAVE BEEN IMPLEMENTED, CALL LIGHT IS WITHIN REACH, BED IS IN LOWEST AND LOCKED POSITION, SIDE RAILS UP X2, WILL CONTINUE TO MONITOR FOR ANY CHANGES.
--- NOTE | 2019-04-05 07:35 | NUR ---
RT Pt received trached on mechanical ventilation with noted settings. Pt is awake but does not follow commands. Vent is plugged into red outlet. No SOB or respiratory distress noted. Addendum: 04/05/19 at 1726 by ANGELLA RASCON RT Amended: Links added.
[2019-04-05 08:00] VITALS: BP 143/79
[2019-04-05] MEDS: ASCORBIC ACID 500 MG TABLET GT SCH (09:00)
[2019-04-05] MEDS: SODIUM CHLORIDE 1000 MG TABLET GT SCH ×3 (09:00→17:06)
[2019-04-05] MEDS: DOCUSATE SODIUM LIQ 100 MG/10 ML UDC GT SCH (09:00)
[2019-04-05] MEDS: LEVETIRACETAM SOL (5 ML) 100 MG/ML UDC GT SCH ×3 (09:00→17:06)
[2019-04-05 09:06] LABS: BAND % (MANUAL) 1 % (0.0-5.0); EOSINOPHILS % (MANUAL) 10 % (0-4); LYMPHOCYTES % (MANUAL) 23 % (16-48); METAMYELOCYTES % 2 % (0-0); MONOCYTES % (MANUAL) 9 % (0-11.0); MYELOCYTES % 1 % (0-0); NEUTROPHILS % (MANUAL) 53 (42-76); PROMYELOCYTES % 1 % (0-0)
[2019-04-05] MEDS: PANTOPRAZOLE 40 MG VIAL IV SCH (09:12)
[2019-04-05] MEDS: HYDROGEL DRESSING 90 GM TUBE TP SCH (09:19)
[2019-04-05] MEDS: Z GUARD REMEDY 2 OZ OINT TP SCH ×2 (09:19→21:39)
--- NOTE | 2019-04-05 09:19 | NUR ---
UNABLE TO GIVE AM MEDS DUE TO GTUBE LEAK
--- NOTE | 2019-04-05 10:44 | NUR ---
NOTIFIED URIEL FAJARDO NP REGARDING GTUBE LEAK. FEEDING AND MEDICATIONS HAVE BEEN RESUMED, WILL MONITOR FOR ANY LEAKAGE
--- NOTE | 2019-04-05 11:15 | NUR ---
0900 DOSE OF KEPPRA GIVEN LATE BECAUSE OF GTUBE MALFUNCTION. SPOKE WITH DR. SHAYNA VILLALBA, HE GAVE THE OK TO ADMIN DOSE NOW, WILL CONTINUE TO MONITOR
[2019-04-05 12:00] VITALS: BP 141/74
[2019-04-05] MEDS: INSULIN REGULAR, HUMAN 100 UNIT/ML 3 ML VIAL SQ PRN (12:15)
--- NOTE | 2019-04-05 13:50 | NUR ---
PER DR. LOUISE, TUBE FEEDING HAS BEEN HELD UNTIL TOMORROW FOR FURTHER EVALUATION, OK TO GIVE MEDS
[2019-04-05] MEDS: VANCOMYCIN 1 GM in IV D5W 250 ML IV SCH (14:30)
[2019-04-05] MEDS: IV 1/2NS 1000 ML 1,000 ML IV PRN (14:30)
[2019-04-05 16:00] VITALS: BP 138/68
[2019-04-05 17:06] LABS: PTH, INTACT 9 pg/mL (15-65)
--- NOTE | 2019-04-05 19:12 | NUR ---
RN CLOSING NOTES PATIENT IS RESTING COMFORTABLY IN BED, SHOWS NO S/SX OF RESP DISTRESS OR SOB. PT NEEDS HAVE BEEN MET, VITAL SIGNS ARE STABLE, NO ACUTE CHANGES OCCURRED THROUGHOUT THE SHIFT. FEEDING HAS BEEN HELD EXCEPT MEDS. SAFETY MEASURES HAVE BEEN IMPLEMENTED, CALL LIGHT IS WITHIN REACH, BED IS IN LOWEST AND LOCKED POSITION, SIDE RAILS UP X2, WILL ENDORSE TO NIGHTSHIFT RN FOR CONTINUITY OF CARE.
[2019-04-05 20:00] VITALS: BP 121/75
--- NOTE | 2019-04-05 20:00 | NUR ---
PHYSICIAN FLIGHT OPERATIONS INSPECTOR PAGED FOR THE SPUTUM CULTURE RESULT GRAM NEGATIVE RODS AND PATIENT IS NPO GTUBE FEEDING ON HOLD DUE TO LEAKGE ON THE GTUBE SITE. NO FURTHER ORDERSS, CHARGE NURSE IS AWARE,
[2019-04-05] MEDS: SENNOSIDES 8.6 MG TABLET GT SCH (21:24)
[2019-04-05] MEDS: ENOXAPARIN SODIUM 30 MG/0.3 ML DISP.SYRIN SQ SCH (21:25)
[2019-04-05] MEDS: INSULIN GLARGINE, 100 UNIT/ML CARTRIDGE SQ SCH (21:32)
--- NOTE | 2019-04-05 21:32 | NUR ---
lantus dose held as the patient is npo and gtube feeding on hold
[2019-04-06] VITALS: BP 129/48
--- NOTE | 2019-04-06 | NUR ---
ADVERTISING SOLICITOR NOTES INSULIN PER SLIDING SCALE HELDWILLIEECK 134 PATIENT NPO DIAGNOSIS Addendum: 04/07/19 at 0006 by MAGALYS PEACOCK RN DISREGARD NOTED FOR 04/07/19 0000
[2019-04-06] MEDS: PIPERACILLIN /TAZOBACTAM 2.25 G in IV D5W 50 ML IV SCH ×5 (00:11→23:02)
[2019-04-06 04:00] VITALS: BP 142/77
[2019-04-06] MEDS: BLOOD SUGAR DIAGNOSTIC 1 EACH STRIP IN SCH ×4 (05:34→23:08)
--- NOTE | 2019-04-06 06:26 | NUR ---
RT NOTE PT REC'D TRACHED ON [facility] VENT ON NOTED SETTINGS. NO RESP DISTRESS OR SOB NOTED. SX'D FOR THICK MOD AMT OF PALE YELLOW SECRETIONS. TRACH PATENT AND SECURED. ALARMS ARE SET AND AUDIBLE. VENT PLUGGED INTO RED OUTLET. AMBU BAG BEDSIDE. Addendum: 04/06/19 at 0628 by REBA WALKER RT Amended: Links added.
[2019-04-06 06:49] LABS: BASOPHILS # (AUTO) 0.1 /CMM (0.0-0.2); BASOPHILS % (AUTO) 0.8 % (0.0-2.0); HEMATOCRIT 29 % (39-51); HEMOGLOBIN 9.5 g/dL (13.5-17.5); LYMPHOCYTES # (AUTO) 1.5 /CMM (0.8-4.8); LYMPHOCYTES % (AUTO) 18.8 % (20.0-44.0); MEAN CORPUSCULAR HGB CONC 33 g/dl (31.0-36.0); MEAN CORPUSCULAR VOLUME 90 fL (80-96); MONOCYTES # (AUTO) 0.8 /CMM (0.1-1.30); MONOCYTES % (AUTO) 9.6 % (2.0-12.0); NEUTROPHILS # (AUTO) 5.3 /CMM (1.8-8.9); NEUTROPHILS % (AUTO) 64.8 % (43.0-81.0); PLATELET COUNT (AUTO) 323 /CMM (150-450); RED BLOOD CELL COUNT(AUTO) 3.22 MIL/uL (4.5-6.0); WHITE BLOOD COUNT (AUTO) 8.1 K/uL (4.3-11.0)
--- NOTE | 2019-04-06 07:15 | NUR ---
CISCO CERTIFIED NETWORK ASSOCIATE OPENING NOTES RECEIVED PT LYING ON BED WITH VENT AND TRACH DEPEND WITH PORTEX 7 AC 18 TV550 [id number]% AND PEEP 5,TOLERATING WELL.NO SOB AND ACUTE DISTRESS NOTED.ON TELE HR IS 73 WITH NSR.PT IS OBTUNDED AND NONVERBAL.ON FC IS IN PLACE.ON G TUBE WITH FEEDING IS CLAMPED BECAUSE OF LEAKING EXCEPT MEDICINES.IV LINE IS ON LEFT AC G20,SITE IS CLEAN,DRY AND INTACT.NO INFILTRATION NOTED.SAFETY IS MAINTAINED AT ALL TIMES.CALL LIGHT IS WITHIN REACH.WILL CONTINUE TO MONITOR THE PT CLOSELY. Addendum: 04/06/19 at 0952 by CHRISTIAN EASTON RN FIO2 35%
[2019-04-06 07:18] LABS: CALCIUM, SERUM 8.5 mg/dL (8.5-10.1); CREATININE 1.3 mg/dL (0.6-1.3); MAGNESIUM 1.9 mg/dL (1.8-2.4); PHOSPHORUS 3.2 mg/dL (2.5-4.9); POTASSIUM 3.5 mmol/L (3.5-5.1)
[2019-04-06 08:00] VITALS: BP 155/71
[2019-04-06] MEDS: DOCUSATE SODIUM LIQ 100 MG/10 ML UDC GT SCH (08:11)
[2019-04-06] MEDS: LEVETIRACETAM SOL (5 ML) 100 MG/ML UDC GT SCH ×2 (08:11→17:00)
[2019-04-06] MEDS: SODIUM CHLORIDE 1000 MG TABLET GT SCH ×3 (08:11→17:01)
[2019-04-06] MEDS: VANCOMYCIN 1 GM in IV D5W 250 ML IV SCH (08:11)
[2019-04-06] MEDS: ASCORBIC ACID 500 MG TABLET GT SCH (08:11)
[2019-04-06] MEDS: PANTOPRAZOLE 40 MG VIAL IV SCH (08:11)
[2019-04-06] MEDS: HYDROGEL DRESSING 90 GM TUBE TP SCH (08:19)
[2019-04-06] MEDS: Z GUARD REMEDY 2 OZ OINT TP SCH ×2 (08:19→21:37)
--- NOTE | 2019-04-06 11:36 | NUR ---
ASSISTANT SPA MANAGER NOTES PER PROCESS EXCELLENCE MANAGER KELSEY TREVINO,INITIALLY ORDERED TO CONTINUE FEEDING AND LATER VERBALLY ORDERED TO HOLD G TUBE FEEDING,PT IS NPO EXCEPT MEDICATIONS AND FOLLOW THE [place]ARK DRIVER ORDERS.NEW ORDERS NOTED AND CARRIED OUT.
[2019-04-06 12:00] VITALS: BP 131/72
[2019-04-06] MEDS: INSULIN REGULAR, HUMAN 100 UNIT/ML 3 ML VIAL SQ PRN ×3 (12:04→23:08)
[2019-04-06 16:00] VITALS: BP 140/76
--- NOTE | 2019-04-06 19:30 | NUR ---
CONSULTING SOLUTION DIRECTOR OPENING NOTES RECEIVED PATIENT IN BED OBTUNDED, RESPIRATIONS EVEN AND UNLABORED WITH EQUAL RISE AND FALL OF CHEST, TRACH INTACT, MECH VENT WORKING WELL, PLUGGED INTO RED EMERGENCY PLUG, AMBU BAG AT BEDSIDE, SUCTION EQUIPMENT IN PLACE, CONTINUOUS SP02 IN PLACE 100%. HEAD OF BED ELEVATED FOR ASPIRATION PRECAUTIONS, NPO DIAGNOSIS EXCEPT MEDS ORDERED, IV SITE TO LEFT AC#20G INTACT AND PATENT, NO REDNESS, NO INFILTRATION PRESENT, HEELS OFFLOADED , ELBOWS OFFLOADED, SAFETY PRECAUTIONS IN PLACE, LOW BED AND LOCKED, SPECIALITY MATTRESS IN PLACE AND FLOWING WELL. ORIENTED TO STAFF AND CALL LIGHT AND KEPT WITHIN REACH, ALL NEEDS ATTENDED AT THIS TIME, REMAINS COMFORTABLE WILL CONTINUE TO MONITOR AND ATTEND TO NEEDS. Addendum: 04/07/19 at 0027 by MAGALYS PEACOCK RN ON BARBER APPRENTICE SR 70
--- NOTE | 2019-04-06 19:31 | NUR ---
FIRE PROTECTION DESIGNER CLOSING NOTES PT IS LYING ON BED WITH VENT AND TRACH DEPEND.RESPIRATION IS EVEN AND NONLABORED.ENDORSED TO MILKER MACHINE RN FOR CORA.
[2019-04-06 20:00] VITALS: BP 127/71
[2019-04-06] MEDS: SENNOSIDES 8.6 MG TABLET GT SCH (21:35)
[2019-04-06] MEDS: ENOXAPARIN SODIUM 30 MG/0.3 ML DISP.SYRIN SQ SCH (21:36)
[2019-04-06] MEDS: INSULIN GLARGINE, 100 UNIT/ML CARTRIDGE SQ SCH (22:00)
--- NOTE | 2019-04-06 22:04 | NUR ---
tax intern notes ACCUCHECK 146 INSULIN LANTUS HELD DUE TO NPO DIAGNOSIS
[2019-04-07] VITALS: BP 126/76
--- NOTE | 2019-04-07 | NUR ---
ROLL BUILDER NOTES INSULIN PER SLIDING SCALE HELD, ACCUCHECK 134 PATIENT NPO DIAGNOSIS
--- NOTE | 2019-04-07 01:49 | NUR ---
buying intern notes vancomycin results 20 special distribution clerk pharmacy made aware per pharmacist to continue current dose. dx sepsis and cellulitis
[2019-04-07] MEDS: VANCOMYCIN 1 GM in IV D5W 250 ML IV SCH (01:52)
[2019-04-07] MEDS: IV 1/2NS 1000 ML 1,000 ML IV PRN (01:53)
[2019-04-07 04:27] VITALS: BP 143/84
[2019-04-07] MEDS: INSULIN REGULAR, HUMAN 100 UNIT/ML 3 ML VIAL SQ PRN ×3 (05:03→17:34)
[2019-04-07] MEDS: BLOOD SUGAR DIAGNOSTIC 1 EACH STRIP IN SCH ×4 (05:03→23:31)
[2019-04-07] MEDS: PIPERACILLIN /TAZOBACTAM 2.25 G in IV D5W 50 ML IV SCH ×2 (05:03→11:31)
--- NOTE | 2019-04-07 05:12 | NUR ---
RT NOTE PT REC'D TRACHED ON [facility] VENT ON NOTED SETTINGS. NO RESP DISTRESS OR SOB NOTED. SX'D FOR THICK MOD AMT OF PALE YELLOW SECRETIONS. TRACH PATENT AND SECURED. ALARMS ARE SET AND AUDIBLE. VENT PLUGGED INTO RED OUTLET. AMBU BAG BEDSIDE. Addendum: 04/07/19 at 0514 by REBA WALKER RT Amended: Links added.
--- NOTE | 2019-04-07 05:13 | NUR ---
RT NOTE PT REC'D TRACHED ON [facility] VENT ON NOTED SETTINGS. NO RESP DISTRESS OR SOB NOTED. SX'D FOR THICK MOD AMT OF PALE YELLOW SECRETIONS. TRACH PATENT AND SECURED. ALARMS ARE SET AND AUDIBLE. VENT PLUGGED INTO RED OUTLET. AMBU BAG BEDSIDE.
--- NOTE | 2019-04-07 06:28 | NUR ---
EYELETTER CLOSING NOTES PATIENT IN BED OBTUNDED, RESPIRATIONS EVEN AND UNLABORED WITH EQUAL RISE AND FALL OF CHEST, TRACH INTACT, MECH VENT WORKING WELL, PLUGGED INTO RED EMERGENCY PLUG, AMBU BAG AT BEDSIDE, SUCTION EQUIPMENT IN PLACE, CONTINUOUS SP02 IN PLACE 100%. HEAD OF BED ELEVATED FOR ASPIRATION PRECAUTIONS, NPO DIAGNOSIS EXCEPT MEDS ORDERED, IV SITE TO LEFT AC#20G INTACT AND PATENT, NO REDNESS, NO INFILTRATION PRESENT, IVF RUNNING ORDERED, MADE HOSPITALIST AWARE OF NPO DX WITH NO NEW ORDERS AT THIS TIME IN REGARDS TO IVF. CONTINUE CURRENT 1/2 NS,TURNED AND REPOSITIONED Q2HR OFFLOADED AFFECTED WOUND SITES, HEELS OFFLOADED , ELBOWS OFFLOADED, SAFETY PRECAUTIONS IN PLACE, LOW BED AND LOCKED, SPECIALITY MATTRESS IN PLACE AND FLOWING WELL. , CALL LIGHT KEPT WITHIN REACH, ALL NEEDS ATTENDED AT THIS TIME, REMAINS COMFORTABLE WILL CONTINUE TO MONITOR AND ATTEND TO NEEDS ON HERBOLOGIST SR 88. ALL DUE MEDS GIVEN WITH NO ADVERSE REACTION , NO CHANGES NOTED, INSULIN HELD DUE TO NPO DIAGNOSIS THROUGHOUT SHIFT.
--- NOTE | 2019-04-07 07:00 | NUR ---
DRONE SOFTWARE DEVELOPMENT ENGINEER OPENING NOTES RECEIVED PT LYING ON BED WITH VENT AND TRACH DEPEND WITH PORTEX 7 AC 18 TV550 FIO2 35% AND PEEP 5,TOLERATING WELL.NO SOB AND ACUTE DISTRESS NOTED.ON TELE HR IS 77 WITH NSR.PT IS OBTUNDED AND NONVERBAL.ON FC IS IN PLACE WITH CLEAR YELLOW COLOR URINE.ON G TUBE WITH FEEDING IS CLAMPED BECAUSE OF LEAKING EXCEPT MEDICINES.IV LINE IS ON LEFT AC G20,SITE IS CLEAN,DRY AND INTACT.NO INFILTRATION NOTED.SAFETY IS MAINTAINED AT ALL TIMES.CALL LIGHT IS WITHIN REACH.WILL CONTINUE TO MONITOR THE PT CLOSELY.
[2019-04-07 07:03] LABS: BASOPHILS # (AUTO) 0.1 /CMM (0.0-0.2); BASOPHILS % (AUTO) 0.7 % (0.0-2.0); EOSINOPHILS % (AUTO) 5.6 % (0.0-6.0); HEMATOCRIT 31 % (39-51); HEMOGLOBIN 9.8 g/dL (13.5-17.5); LYMPHOCYTES # (AUTO) 1.9 /CMM (0.8-4.8); LYMPHOCYTES % (AUTO) 19.5 % (20.0-44.0); MEAN CORPUSCULAR HGB CONC 32 g/dl (31.0-36.0); MEAN CORPUSCULAR VOLUME 90 fL (80-96); MONOCYTES % (AUTO) 10.3 % (2.0-12.0); NEUTROPHILS # (AUTO) 6.1 /CMM (1.8-8.9); NEUTROPHILS % (AUTO) 63.9 % (43.0-81.0); PLATELET COUNT (AUTO) 353 /CMM (150-450); WHITE BLOOD COUNT (AUTO) 9.5 K/uL (4.3-11.0)
--- NOTE | 2019-04-07 07:23 | NUR ---
RT Pt received trached on mechanical ventilation with noted settings. Pt is awake but does not follow commands. Vent is plugged into red outlet. No SOB or respiratory distress noted at this time. Addendum: 04/07/19 at 0757 by ANGELLA RASCON RT Amended: Links added.
[2019-04-07 07:29] LABS: CALCIUM, SERUM 8.5 mg/dL (8.5-10.1); CREATININE 1.6 mg/dL (0.6-1.3); MAGNESIUM 1.9 mg/dL (1.8-2.4); PHOSPHORUS 3.1 mg/dL (2.5-4.9); POTASSIUM 3.6 mmol/L (3.5-5.1)
--- NOTE | 2019-04-07 07:53 | NUR ---
WOUND CARE CONSULT: RECEIVED WOUND CONSULT FOR RT HEEL. RT HEEL NOTED TO HAVE BLANCHABLE REDNESS. RT LEG IS CONTRACTED MAKING HEEL OFFLOADING DIFFICULT. DISCUSSED IMPORTANCE OF OFFLOADING HEELS WITH NURSING STAFF. ALL SKIN PROTECTION MEASURES IN PLACE. WILL SEE PRN. PT ON FIRST STEP [facility] LOW AIRLOSS MATTRESS. PT FOLLOWED BY SURGICAL TEAM FOR WOUNDS.
[2019-04-07 08:00] VITALS: BP_SYST 140; BP_DIAS 70; BP_DIAS 77
[2019-04-07] MEDS: SODIUM CHLORIDE 1000 MG TABLET GT SCH ×3 (08:14→16:43)
[2019-04-07] MEDS: DOCUSATE SODIUM LIQ 100 MG/10 ML UDC GT SCH (08:14)
[2019-04-07] MEDS: ASCORBIC ACID 500 MG TABLET GT SCH (08:14)
[2019-04-07] MEDS: PANTOPRAZOLE 40 MG VIAL IV SCH (08:14)
[2019-04-07] MEDS: HYDROGEL DRESSING 90 GM TUBE TP SCH (08:14)
[2019-04-07] MEDS: LEVETIRACETAM SOL (5 ML) 100 MG/ML UDC GT SCH ×2 (08:14→16:43)
[2019-04-07] MEDS: Z GUARD REMEDY 2 OZ OINT TP SCH ×2 (08:15→21:42)
--- NOTE | 2019-04-07 08:45 | NUR ---
VISUAL EDUCATION DIRECTOR NOTES DR.RUTHERFORD ECKERT SEEN THE PT AND ORDERED TO D/C 1/2 NS IV AND START D51/2NS @70CC/HR IV.NEW ORDERS NOTED AND CARRIED OUT.
[2019-04-07 08:50] LABS: BAND % (MANUAL) 2 % (0.0-5.0); EOSINOPHILS % (MANUAL) 5 % (0-4); LYMPHOCYTES % (MANUAL) 16 % (16-48); METAMYELOCYTES % 1 % (0-0); MONOCYTES % (MANUAL) 14 % (0-11.0); MYELOCYTES % 2 % (0-0); NEUTROPHILS % (MANUAL) 60 (42-76)
[2019-04-07] MEDS: IV D5/0.45 NACL 1,000 ML IV PRN (09:26)
[2019-04-07 12:00] VITALS: BP 133/50
--- NOTE | 2019-04-07 15:25 | NUR ---
PROP AND SCENERY MAKER NOTES VERBALLY SAID THEY ARE PLANNING TO CHANGE THE PEG TUBE LATER AND HOLD THE FEEDING FOR NOW.NEW ORDERS NOTED AND CARRIED OUT.
[2019-04-07 16:00] VITALS: BP 132/74
--- NOTE | 2019-04-07 18:39 | NUR ---
TOPPIECE CUTTER CLOSING NOTES PT IS LYING ON BED WITH VENT AND TRACH DEPEND.IV FLUID IS RUNNING.FC IS IN PLACE.FAMILY IS AT BEDSIDE.RESPIRATION IS EVEN AND NONLABORED.NO SIGNIFICANT CHANGES NOTED IN THE SHIFT.IV FLUID IS RUNNING.WILL ENDORSE TO SUPPLY CHAIN DESIGN MANAGER RN FOR CORA.
[2019-04-07 20:00] VITALS: BP 130/61
--- NOTE | 2019-04-07 20:09 | NUR ---
TELE-1/RAILROAD SUPERVISOR OF ENGINES SPOKE WITH JAY HERNADEZ FOR GI. NEW ORDERS FOR TOPICAL OINTMENT FOR GT STOMA.
[2019-04-07] MEDS: TRIAMCINOLONE ACETONIDE 0.1% CR 15 GM TUBE TP SCH (21:41)
[2019-04-07] MEDS: SENNOSIDES 8.6 MG TABLET GT SCH (21:41)
[2019-04-07] MEDS: NYSTATIN CREAM 15 GM TUBE TP SCH (21:41)
[2019-04-07] MEDS: ENOXAPARIN SODIUM 30 MG/0.3 ML DISP.SYRIN SQ SCH (21:42)
[2019-04-07] MEDS: INSULIN GLARGINE, 100 UNIT/ML CARTRIDGE SQ SCH (22:00)
[2019-04-08] VITALS: BP 114/75
[2019-04-08] MEDS: IV D5/0.45 NACL 1,000 ML IV PRN ×2 (00:02→18:21)
[2019-04-08] MEDS ORDERED: VANCOMYCIN 1 GM in IV D5W 250 ML IV SCH (02:00)
[2019-04-08 04:00] VITALS: BP 148/64
[2019-04-08 05:07] LABS: *SPE A/G RATIO 0.7 (0.7-1.7); *SPE ALBUMIN 2.8 g/dL (2.9-4.4); *SPE ALPHA-1-GLOBULIN 0.2 g/dL (0.0-0.4); *SPE BETA GLOBULIN 1.4 g/dL (0.7-1.3); *SPE GLOBULIN, TOTAL 4.2 g/dL (2.2-3.9); *SPE M-SPIKE Not Observed g/dL (Not Observed); *SPEGAMMA GLOBULIN 1.5 g/dL (0.4-1.8)
[2019-04-08] MEDS: BLOOD SUGAR DIAGNOSTIC 1 EACH STRIP IN SCH ×4 (05:13→23:03)
[2019-04-08 06:48] LABS: CALCIUM, SERUM 8.4 mg/dL (8.5-10.1); CREATININE 1.4 mg/dL (0.6-1.3); POTASSIUM 3.5 mmol/L (3.5-5.1)
[2019-04-08 08:00] VITALS: BP 157/77
[2019-04-08] MEDS: LEVETIRACETAM SOL (5 ML) 100 MG/ML UDC GT SCH ×2 (09:03→18:20)
[2019-04-08] MEDS: HYDROGEL DRESSING 90 GM TUBE TP SCH (09:03)
[2019-04-08] MEDS: ASCORBIC ACID 500 MG TABLET GT SCH (09:03)
[2019-04-08] MEDS: PANTOPRAZOLE 40 MG VIAL IV SCH (09:03)
[2019-04-08] MEDS: SODIUM CHLORIDE 1000 MG TABLET GT SCH ×3 (09:03→18:20)
[2019-04-08] MEDS: DOCUSATE SODIUM LIQ 100 MG/10 ML UDC GT SCH (09:03)
--- NOTE | 2019-04-08 09:44 | NUR ---
RT PT RECEIVED TRACH'D ON [facility] VENT WITH SETTINGS PER MD ORDER. AUTOMOTIVE BRAKE TECHNICIAN DONE. VENT PLUGGED INTO RED OUTLET. SPARE TRACH AND AMBU BAG AT BEDSIDE. SUCTIONED SMALL AMOUNTS OF THICK, PALE YELLOW SECRETIONS. NO SIGNS OF DISTRESS NOTED. WILL CONTINUE TO MONITOR FOR ANY CHANGES. Addendum: 04/08/19 at 1708 by LILO ARROYO RT Amended: Links added.
[2019-04-08 12:00] VITALS: BP 146/78
[2019-04-08] MEDS: INSULIN REGULAR, HUMAN 100 UNIT/ML 3 ML VIAL SQ PRN ×2 (12:14→23:03)
[2019-04-08] MEDS: NYSTATIN CREAM 15 GM TUBE TP SCH ×2 (12:15→18:21)
[2019-04-08] MEDS: TRIAMCINOLONE ACETONIDE 0.1% CR 15 GM TUBE TP SCH ×2 (12:15→18:20)
[2019-04-08] MEDS: Z GUARD REMEDY 2 OZ OINT TP SCH ×2 (12:16→21:31)
[2019-04-08 16:00] VITALS: BP_SYST 14; BP_SYST 144; BP_DIAS 69
--- NOTE | 2019-04-08 19:00 | NUR ---
JAVA LEAD DEVELOPER CLOSING PATIENT REMAINS NONVERBAL, OBTUNDED, DOES NOT TRACK. ATTACHED TO [facility] VENT, NO RESPIRATORY DISTRESS NOTED, SEEMS TO TOLERATE SETTINGS WELL. PULSE OX ATTACHED, ALARM AUDIBLE. TELE MONITOR ATTACHED, SINUS RHYTHM HR 70s. MULLEN CATHETER DRAINING. WOUND CARE COMPLETED. NPO STATUS EXCEPT MEDS MAINTAINED. CONSENT OBTAINED FOR PROCEDURE TOMORROW AND PLACED IN CHART, SIGNED BY MADISON TELLO.
--- NOTE | 2019-04-08 19:48 | NUR ---
PT RECEIVED TRACH PORTEX 7 ON MECH VENT WITH NOTED SETTINGS. PT IS OBTUNDED . SX'D AND LAVAGED NEEDED. EQUIPMENT STERILIZER DONE. VENT ALARMS SET AND AUDIBLE. AMBU BAG AT BEDSIDE. TRACH SECURE. WILL CONTINUE TO MONITOR.
[2019-04-08 20:00] VITALS: BP 138/66
[2019-04-08] MEDS: ENOXAPARIN SODIUM 30 MG/0.3 ML DISP.SYRIN SQ SCH (21:00)
--- NOTE | 2019-04-08 21:00 | NUR ---
CLINICAL DATA ASSOCIATE NOTES, RECEIVED PATIENT LYING ON BED, OBTUNDED AND NONVERBAL, ON MECHANICAL VENTILATOR SETTINGS BY RT TOLERATED WELL, NO SOB/ACUTE DISTRESS NOTED AT THIS TIME, OPTIMAL O2 SAT LEVEL, NSR ON TELE MONITOR WITH HR IN THE 50S AT THIS TIME, FC IN PLACED CLEAR YELLOW COLOR URINE DRAINING BY GRAVITY, PATENCY INTACT, G TUBE CLAMPED, NPO EXCEPT MEDS FOR GT PLACEMENT TOMORROW, IV ACCESS IN LEFT AC G20,SITE IS CLEAN,DRY AND INTACT, IVF INFUSING WELL AND PATIENT TOLERATED WELL, NO INFILTRATION NOTED, SAFETY PRECAUTIONS IN PLACED, HOB AT ALL TIMES, .CALL LIGHT IS WITHIN, REPOSITIONED AT THIS TIME, WILL CONTINUE TO MONITOR PATIENT CLOSELY. Addendum: 04/08/19 at 210 by RODRIGO SERNA RN CORRECT TIME 1934
[2019-04-08] MEDS: SENNOSIDES 8.6 MG TABLET GT SCH (21:31)
[2019-04-08] MEDS: INSULIN GLARGINE, 100 UNIT/ML CARTRIDGE SQ SCH (22:00)
--- NOTE | 2019-04-08 22:32 | NUR ---
RN NOTES, PATIENT NPO FOR GT PLACEMENT TOMORROW, LANTUS INSULIN NOT ADMINISTERED, LOVENOX HOLD TOO DUE TO THIS PROCEDURE TOMORROW.
[2019-04-09] VITALS: BP 153/76
--- NOTE | 2019-04-09 | NUR ---
RN NOTES, REGULAR INSULIN NOT ADMINISTERED PATIENT NPO, BLOOD SUGAR AT THIS TIME 171MG/dL.
[2019-04-09 04:00] VITALS: BP 141/60
[2019-04-09] MEDS: BLOOD SUGAR DIAGNOSTIC 1 EACH STRIP IN SCH ×4 (06:05→23:58)
[2019-04-09] MEDS: INSULIN REGULAR, HUMAN 100 UNIT/ML 3 ML VIAL SQ PRN ×3 (06:07→18:24)
[2019-04-09 06:24] LABS: BASOPHILS % (AUTO) 0.6 % (0.0-2.0); EOSINOPHILS % (AUTO) 7.3 % (0.0-6.0); HEMATOCRIT 30 % (39-51); LYMPHOCYTES # (AUTO) 1.1 /CMM (0.8-4.8); LYMPHOCYTES % (AUTO) 14.7 % (20.0-44.0); MEAN CORPUSCULAR HGB CONC 33 g/dl (31.0-36.0); MEAN CORPUSCULAR VOLUME 91 fL (80-96); MONOCYTES # (AUTO) 1.1 /CMM (0.1-1.30); MONOCYTES % (AUTO) 13.9 % (2.0-12.0); NEUTROPHILS % (AUTO) 63.5 % (43.0-81.0); PLATELET COUNT (AUTO) 313 /CMM (150-450); RED BLOOD CELL COUNT(AUTO) 3.35 MIL/uL (4.5-6.0); WHITE BLOOD COUNT (AUTO) 7.8 K/uL (4.3-11.0)
[2019-04-09 06:37] LABS: CALCIUM, SERUM 8.4 mg/dL (8.5-10.1); CREATININE 1.4 mg/dL (0.6-1.3); POTASSIUM 3.5 mmol/L (3.5-5.1)
--- NOTE | 2019-04-09 07:00 | NUR ---
SEAMLESS TUBE DRAWER NOTES, PATIENT IN BED, OBTUNDED AND NONVERBAL, WITH EYES CLOSED, ON MECHANICAL VENTILATOR SETTINGS BY RT TOLERATED WELL, NO SOB/ACUTE DISTRESS NOTED AT THIS TIME, OPTIMAL O2 SAT LEVEL, NSR ON TELE MONITOR WITH HR IN THE 50-60S AT THIS TIME, FC IN PLACED CLEAR YELLOW COLOR URINE DRAINING BY GRAVITY, PATENCY INTACT, G TUBE CLAMPED, CONTINUE NPO EXCEPT MEDS FOR GT PLACEMENT TODAY, IV ACCESS IN LEFT AC G20,SITE IS CLEAN,DRY AND INTACT, IVF INFUSING WELL AND PATIENT TOLERATED WELL, NO INFILTRATION NOTED, SAFETY PRECAUTIONS IN PLACED, HOB AT ALL TIMES, NO SIGNIFICANT CHANGE IN CONDITION CALL LIGHT IS WITHIN, REPOSITIONED AT THIS TIME, WILL ENDORSED TO ONCOMING NURSE FOR CONTINUITY OF CARE.
--- NOTE | 2019-04-09 07:38 | NUR ---
RT Pt received trached on the vent with noted settings. Vent is plugged into red outlet. Pt is awake but does not follow commands. No SOB or respiratory distress noted. Addendum: 04/09/19 at 1133 by ANGELLA RASCON RT Amended: Links added.
--- NOTE | 2019-04-09 07:42 | NUR ---
RN OPENING NOTES RECEIVED PATIENT RESTING IN BED COMFORTABLY, SHOWS NO S/SX OF RESP DISTRESS OR PAIN. HE IS OBTUNDED, NON-VERBAL, AND BEDBOUND. HE HAS A PORTEX 7 TRACH AND IS ON MECHANICAL VENTILATION, TOLERATING VENT SETTINGS WELL. TELE MONITOR SHOWING SR WITH OCCASIONAL PAC WITH HR IN THE 90S. PT IS NPO EXCEPT MEDS FOR GTUBE INFLAMMATION, PLACEMENT OF NEW GTUBE IS SCHEDULED FOR TODAY. LAC 20 G IS INTACT AND INFUSING 15 1/2 NS AT 70 ML/HR. SACRAL WOUND WILL BE TREATED ACCORDING TO WOUND CARE PLAN. SAFETY MEASURES HAVE BEEN IMPLEMENTED, CALL LIGHT IS WITHIN REACH, BED IS IN LOWEST AND LOCKED POSITION, SIDE RAILS UP X2, WILL CONTINUE TO MONITOR FOR ANY CHANGES.
[2019-04-09 08:00] VITALS: BP 114/49
[2019-04-09] MEDS: SODIUM CHLORIDE 1000 MG TABLET GT SCH ×3 (08:51→16:50)
[2019-04-09] MEDS: LEVETIRACETAM SOL (5 ML) 100 MG/ML UDC GT SCH ×2 (08:51→16:50)
[2019-04-09] MEDS: ASCORBIC ACID 500 MG TABLET GT SCH (08:51)
[2019-04-09] MEDS: DOCUSATE SODIUM LIQ 100 MG/10 ML UDC GT SCH (08:51)
[2019-04-09] MEDS: PANTOPRAZOLE 40 MG VIAL IV SCH (08:52)
[2019-04-09] MEDS: Z GUARD REMEDY 2 OZ OINT TP SCH ×2 (08:52→21:14)
[2019-04-09] MEDS: TRIAMCINOLONE ACETONIDE 0.1% CR 15 GM TUBE TP SCH ×2 (08:52→16:50)
[2019-04-09] MEDS: HYDROGEL DRESSING 90 GM TUBE TP SCH (08:52)
[2019-04-09] MEDS: NYSTATIN CREAM 15 GM TUBE TP SCH ×2 (08:52→16:51)
[2019-04-09] MEDS: IV D5/0.45 NACL 1,000 ML IV PRN (10:50)
[2019-04-09 12:00] VITALS: BP 127/66
--- NOTE | 2019-04-09 14:03 | NUR ---
PT IS S/P PEG PLACEMENT, PROCEDURE DONE AT BEDSIDE, TOLERATED WELL. VITALS: BP: 122/84, HR:99, O2:98%, RR; 18. WILL CONTINUE TO MONITOR FOR ANY CHANGES
[2019-04-09 16:00] VITALS: BP 134/86
[2019-04-09] MEDS: GLUCERNA 1.2 1,000 ML BOTTLE NG PRN (16:50)
[2019-04-09] MEDS: CEFEPIME 2 GM in IV D5W 100 ML IV SCH (17:23)
--- NOTE | 2019-04-09 19:04 | NUR ---
RN CLOSING NOTES PATIENT IS RESTING COMFORTABLY IN BED, SHOWS NO S/SX OF RESP DISTRESS OR SOB. PT IS S/P PEG PLACEMENT DONE AT BEDSIDE, TOLERATED WELL. PT NEEDS HAVE BEEN MET, VITAL SIGNS ARE STABLE, NO ACUTE CHANGES OCCURRED THROUGHOUT THE SHIFT. SAFETY MEASURES HAVE BEEN IMPLEMENTED, CALL LIGHT IS WITHIN REACH, BED IS IN LOWEST AND LOCKED POSITION, SIDE RAILS UP X2, WILL ENDORSE TO NIGHTSHIFT RN FOR CONTINUITY OF CARE.
[2019-04-09 20:00] VITALS: BP 163/97
--- NOTE | 2019-04-09 20:36 | NUR ---
RN NOTES, NOTED PATIENT WITH HR 120-130S PER SECONDS EVEN 150S, WITH BP 163/97, INFORMED [facility] RECRUITING INTERN AND RECEIVED ORDER FOR EKG AND CHEST XR STAT, NOTED AND CARRIED OUT.
--- NOTE | 2019-04-09 20:42 | NUR ---
RT NOTE: RECEIVED TRACH PT ON [facility] VENT ON NOTED SETTINGS PER MD ORDERS. TRACH IS PATENT AND SECURED. EXHIBITION SPECIALIST DONE. SX DONE PRN. VENT PLUGGED INTO RED OUTLET. ALARMS ON AND AUDIBLE. TOM VILLEGSA @ BEDSIDE. NO RESP DISTRESS AT THIS TIME. WILL CONT TO MONITOR PT. Addendum: 04/10/19 at 0407 by ROE LEE RT Amended: Links added.
[2019-04-09] MEDS ORDERED: ASPIRIN EC 325 MG TABLET.DR PO ONE (20:56)
--- NOTE | 2019-04-09 21:10 | NUR ---
RN NOTES, RECEIVED A NEW ORDER FROM [facility] FOR CATAPRES 0.I MG Q6HRS FOR SBP>160, NOTED AND CARRIED OUT.
[2019-04-09] MEDS: SENNOSIDES 8.6 MG TABLET GT SCH (21:12)
[2019-04-09] MEDS: SULFAMETH/TRIMETH 800/160 MG 1 UDTAB TABLET GT SCH (21:12)
[2019-04-09] MEDS: ENOXAPARIN SODIUM 30 MG/0.3 ML DISP.SYRIN SQ SCH (21:13)
[2019-04-09] MEDS ORDERED: CLONIDINE HCL 0.1 MG TABLET PO PRN (21:30)
--- NOTE | 2019-04-09 21:50 | NUR ---
RN NOTES, CHEST X-RAYS RESULTS REPORTED TO [facility] AND RECEIVED A NEW ORDER TO STOP IV FLUIDS AND GIVE LASIX 40MG IVPX1 NOW, AND ALSO REPLACED POTASSIUM WITH 40MEG POTASSIUM CHLORIDE POWERD, NOTED AND CARRIED OUT.
[2019-04-09] MEDS ORDERED: FUROSEMIDE 40 MG/4 ML VIAL IV ONE (22:00)
[2019-04-09] MEDS ORDERED: POTASSIUM CHLORIDE 20 MEQ POWDER PACKET GT ONE (22:30)
[2019-04-09] MEDS: INSULIN GLARGINE, 100 UNIT/ML CARTRIDGE SQ SCH (22:38)
[2019-04-09] MEDS ORDERED: POTASSIUM CHLORIDE 20 MEQ POWDER PACKET ONE (22:52)
[2019-04-10] VITALS (7 sets, daily range): BP systolic 91–134; BP diastolic 50–68
[2019-04-10] MEDS: INSULIN REGULAR, HUMAN 100 UNIT/ML 3 ML VIAL SQ PRN ×4 (00:04→18:08)
[2019-04-10] MEDS: CEFEPIME 2 GM in IV D5W 100 ML IV SCH ×2 (05:57→16:03)
[2019-04-10] MEDS: BLOOD SUGAR DIAGNOSTIC 1 EACH STRIP IN SCH ×3 (06:38→18:03)
--- NOTE | 2019-04-10 06:53 | NUR ---
CLINICAL PSYCHOLOGY PROFESSOR NOTES, PATIENT IN BED, OBTUNDED AND NONVERBAL, WITH EYES CLOSED, ON MECHANICAL VENTILATOR SETTINGS BY RT TOLERATED WELL, NO SOB/ACUTE DISTRESS NOTED AT THIS TIME, OPTIMAL O2 SAT LEVEL, , FC IN PLACED CLEAR YELLOW COLOR URINE DRAINING BY GRAVITY, PATENCY INTACT, S/P GT PLACEMENT, G TUBE PATENT AND INTACT, GLUCERNA INFUSING ORDERED, PATIENT TOLERATED WELL, IV ACCESS IN LEFT AC G20,SITE IS CLEAN,DRY AND INTACT, IV FLUID STOPPED PER [facility], ELEVATED HR DURING THE NIGHT, AND HR RIGHT NOW IN THE 80-90S, SAFETY PRECAUTIONS IN PLACED, HOB AT ALL TIMES, NO SIGNIFICANT CHANGE IN CONDITION CALL LIGHT IS WITHIN, REPOSITIONED AT THIS TIME, WILL ENDORSED TO ONCOMING NURSE FOR CONTINUITY OF CARE.
[2019-04-10 07:23] LABS: BASOPHILS # (AUTO) 0.1 /CMM (0.0-0.2); BASOPHILS % (AUTO) 0.8 % (0.0-2.0); EOSINOPHILS % (AUTO) 4.1 % (0.0-6.0); HEMATOCRIT 29 % (39-51); HEMOGLOBIN 9.2 g/dL (13.5-17.5); LYMPHOCYTES # (AUTO) 1.4 /CMM (0.8-4.8); LYMPHOCYTES % (AUTO) 11.4 % (20.0-44.0); MEAN CORPUSCULAR HGB CONC 32 g/dl (31.0-36.0); MEAN CORPUSCULAR VOLUME 92 fL (80-96); MONOCYTES # (AUTO) 1.5 /CMM (0.1-1.30); MONOCYTES % (AUTO) 11.9 % (2.0-12.0); NEUTROPHILS # (AUTO) 8.8 /CMM (1.8-8.9); NEUTROPHILS % (AUTO) 71.8 % (43.0-81.0); PLATELET COUNT (AUTO) 302 /CMM (150-450); RED BLOOD CELL COUNT(AUTO) 3.15 MIL/uL (4.5-6.0); WHITE BLOOD COUNT (AUTO) 12.3 K/uL (4.3-11.0)
[2019-04-10 07:34] LABS: CREATININE 1.8 mg/dL (0.6-1.3); POTASSIUM 3.7 mmol/L (3.5-5.1)
--- NOTE | 2019-04-10 07:52 | NUR ---
RN OPENING NOTES RECEIVED PATIENT RESTING IN BED COMFORTABLY, DOES NO SHOW ANY S/SX OF RESP DISTRESS OR SOB. HE IS OBTUNDED, NON-VERBAL, AND BED BOUND. TELE MONITOR SHOWING SR WITH HR IN THE 80'S. PT IS S/P GTUBE PLACEMENT (04/09). PATENT AND INTACT, INFUSING GLUCERNA AT 65 ML/HR, NO RESIDUAL. ROHITH 20 G IV IS INTACT, NO FLUID RUNNING. SKIN IS INTACT ASIDE FROM SACRAL MASD, WILL PROVIDE CARE ACCORDING TO CARE PLAN. SAFETY MEASURES HAVE BEEN IMPLEMENTED, CALL LIGHT IS WITHIN REACH, BED IS IN LOWEST AND LOCKED POSITION, SIDE RIALS UP X2, WILL CONTINUE TO MONITOR FOR ANY CHANGES.
[2019-04-10] MEDS: SODIUM CHLORIDE 1000 MG TABLET GT SCH ×3 (08:08→16:03)
[2019-04-10] MEDS: SULFAMETH/TRIMETH 800/160 MG 1 UDTAB TABLET GT SCH ×2 (08:09→21:38)
[2019-04-10] MEDS: DOCUSATE SODIUM LIQ 100 MG/10 ML UDC GT SCH (08:09)
[2019-04-10] MEDS: LEVETIRACETAM SOL (5 ML) 100 MG/ML UDC GT SCH ×2 (08:09→16:03)
[2019-04-10] MEDS: PANTOPRAZOLE 40 MG VIAL IV SCH (08:09)
[2019-04-10] MEDS: ASCORBIC ACID 500 MG TABLET GT SCH (08:09)
[2019-04-10] MEDS: HYDROGEL DRESSING 90 GM TUBE TP SCH (08:13)
[2019-04-10] MEDS: Z GUARD REMEDY 2 OZ OINT TP SCH ×2 (08:14→21:39)
[2019-04-10] MEDS: TRIAMCINOLONE ACETONIDE 0.1% CR 15 GM TUBE TP SCH ×2 (08:15→16:03)
[2019-04-10] MEDS: NYSTATIN CREAM 15 GM TUBE TP SCH ×2 (08:15→16:03)
[2019-04-10 08:26] LABS: EOSINOPHILS % (MANUAL) 3 % (0-4); LYMPHOCYTES % (MANUAL) 18 % (16-48); MONOCYTES % (MANUAL) 6 % (0-11.0); MYELOCYTES % 2 % (0-0); NEUTROPHILS % (MANUAL) 71 (42-76)
--- NOTE | 2019-04-10 11:16 | NUR ---
RT PT RECEIVED TRACH'D ON [facility] VENT WITH SETTINGS PER MD ORDER. GUN FITTER DONE. VENT PLUGGED INTO RED OUTLET. TRACH SECURED AND PATENT. SUCTIONED SMALL AMOUNTS OF THICK, PALE YELLOW SECRETIONS. SPARE TRACH AND AMBU BAG AT BEDSIDE. NO SIGNS OF DISTRESS NOTED AT THIS TIME. WILL CONTINUE TO MONITOR FOR ANY CHANGES. Addendum: 04/10/19 at 1826 by LILO ARROYO RT Amended: Links added.
[2019-04-10] MEDS: GLUCERNA 1.2 1,000 ML BOTTLE NG PRN (18:08)
--- NOTE | 2019-04-10 19:07 | NUR ---
RN CLOSING NOTES RECEIVED PATIENT RESTING IN BED COMFORTABLY WITH NIECE AT BED SIDE. PT IS S/P PEG PLACEMENT DONE ON 04/09, TOLERATING FEEDING WELL. NO ACUTE CHANGES OCCURRED THROUGHOUT SHIFT, VITAL SIGNS ARE STABLE, PT NEEDS HAVE BEEN MET. SAFETY MEASURES HAVE BEEN IMPLEMENTED, CALL LIGHT IS WITHIN REACH, BED IS IN LOWEST AND LOCKED POSITION, SIDE RAILS ARE UP X2, PT HAS BEEN ENDORSED TO NIGHTSHIFT RN FOR CONTINUITY OF CARE.
--- NOTE | 2019-04-10 19:25 | NUR ---
TELE/RN NOTES PATIENT IN BED, RESTING COMFORTABLY AT THIS TIME, NO S/S OF ACUTE DISTRESS NOTED, BREATHING EVEN AND UNLABORED ON PRESCRIBED VENT SETTINGS. O2 SAT 97% AT THIS TIME. TRACH INTACT, PATENT IN MIDLINE, G-TUBE IN PLACE, PATENT CONNECTED TO FEEDING ORDERED, TOLERATING WELL WITH NO RESIDUAL AT THIS TIME. ON TELE MONITORING WITH SINUS RHYTHM. HOB ELEVATED. PATIENT OBTUNDED, OPEN EYES, NO S/S OF PAIN NOTED. IV SITES WITH NO S/S OF INFECTION, INFILTRATION. SAFETY MAINTAINED, BED AT THE LOWEST LOCKED POSITION. CALL LIGHT WITHIN REACH, FAMILY AT BED SIDE. WILL CONTINUE TO MONITOR PER PLAN OF CARE.
[2019-04-10] MEDS: SENNOSIDES 8.6 MG TABLET GT SCH (21:38)
[2019-04-10] MEDS: ENOXAPARIN SODIUM 30 MG/0.3 ML DISP.SYRIN SQ SCH (21:40)
[2019-04-10] MEDS: INSULIN GLARGINE, 100 UNIT/ML CARTRIDGE SQ SCH (21:41)
[2019-04-11] VITALS: BP 111/54
--- NOTE | 2019-04-11 00:08 | NUR ---
RT NOTE Pt rec'd trached on [facility] vent on AC Mode. No resp distress or sob noted. Trach is patent and Secured. Sx'd for thick mod amt of pale yellow secretions. Alarms are set and audible. Vent plugged into red outlet. Ambu bag bedside. Will continue to monitor. Addendum: 04/11/19 at 0008 by REBA WALKER RT Amended: Links added.
[2019-04-11] MEDS: BLOOD SUGAR DIAGNOSTIC 1 EACH STRIP IN SCH ×3 (00:36→12:35)
[2019-04-11] MEDS: INSULIN REGULAR, HUMAN 100 UNIT/ML 3 ML VIAL SQ PRN ×3 (00:41→12:35)
[2019-04-11 04:00] VITALS: BP 119/53
[2019-04-11] MEDS: CEFEPIME 2 GM in IV D5W 100 ML IV SCH (06:21)
--- NOTE | 2019-04-11 07:05 | NUR ---
TELE/RN NOTES PATIENT IN BED, RESTING COMFORTABLY AT THIS TIME, NO S/S OF ACUTE DISTRESS NOTED, BREATHING EVEN AND UNLABORED ON PRESCRIBED VENT SETTINGS. O2 SAT 98% AT THIS TIME. TRACH INTACT, PATENT IN MIDLINE, G-TUBE IN PLACE, PATENT CONNECTED TO FEEDING ORDERED, TOLERATING WELL WITH NO RESIDUAL AT THIS TIME. ON TELE MONITORING WITH SINUS RHYTHM. HOB ELEVATED. NO S/S OF PAIN NOTED. IV SITES WITH NO S/S OF INFECTION, INFILTRATION. ALL DUE MEDS GIVEN ORDERED, TREATMENT RENDERED, TOLERATED WELL. SAFETY MAINTAINED, BED AT THE LOWEST LOCKED POSITION. CALL LIGHT WITHIN REACH. WILL ENDORSE TO AM SHIFT NURSE FOR CORA.
--- NOTE | 2019-04-11 07:42 | NUR ---
RN CORNELIA: pt.is obtunded, rest, no grimacing, contracted, no SOB, SR, SBP over 100, RR WNL, O2sat.over 94%, suctioned well, GTF residual 10ml, abdomen soft, slightly distended, GT patent is ok by report, wounds care done by report, IVF TKO, endorsed IVPL dressing
--- NOTE | 2019-04-11 07:47 | NUR ---
RT NOTE RECEIVED PT MECHANICALLY VENTILATED VIA CUFFED TRACHEOSTOMY TUBE. CUFF INFLATED. TRACH TUBE MIDLINE AND SECURE. VENTILATOR SETTINGS PRESCRIBED. ALARMS SET PER PROTOCOL AND AUDIBLE. VENT PLUGGED IN TO RED OUTLET. AMBU BAG AT BED SIDE. NO DISTRESS NOTED AT MOMENT. Addendum: 04/11/19 at 0749 by MAYA WESTBROOK RT Amended: Links added.
[2019-04-11 08:00] VITALS: BP 133/68
[2019-04-11] MEDS: PANTOPRAZOLE 40 MG VIAL IV SCH (09:01)
[2019-04-11] MEDS: SULFAMETH/TRIMETH 800/160 MG 1 UDTAB TABLET GT SCH (09:01)
[2019-04-11] MEDS: LEVETIRACETAM SOL (5 ML) 100 MG/ML UDC GT SCH (09:01)
[2019-04-11] MEDS: ASCORBIC ACID 500 MG TABLET GT SCH (09:01)
[2019-04-11] MEDS: DOCUSATE SODIUM LIQ 100 MG/10 ML UDC GT SCH (09:01)
[2019-04-11] MEDS: SODIUM CHLORIDE 1000 MG TABLET GT SCH ×2 (09:01→13:25)
[2019-04-11] MEDS: Z GUARD REMEDY 2 OZ OINT TP SCH (09:06)
[2019-04-11] MEDS: HYDROGEL DRESSING 90 GM TUBE TP SCH (09:06)
[2019-04-11] MEDS: NYSTATIN CREAM 15 GM TUBE TP SCH (09:06)
[2019-04-11] MEDS: TRIAMCINOLONE ACETONIDE 0.1% CR 15 GM TUBE TP SCH (09:07)
[2019-04-11] MEDS ORDERED: SULF1TAB3 GT (10:10)
[2019-04-11] MEDS ORDERED: CEFE1PIG3 IV (10:10)
--- NOTE | 2019-04-11 10:30 | NUR ---
RN CORNELIA: updated/ordered d/c pt
--- NOTE | 2019-04-11 11:00 | NUR ---
LAMINATING MACHINE TENDER: evaluated pt. wounds, said: continue same sacral wound Tx, oil emulsion, Mepilex, ABD
[2019-04-11] MEDS: GLUCERNA 1.2 1,000 ML BOTTLE NG PRN (11:52)
[2019-04-11 12:00] VITALS: BP 143/69
--- NOTE | 2019-04-11 14:17 | NUR ---
RN CORNELIA: full report was given for Darien Godwin
--- NOTE | 2019-04-11 14:30 | NUR ---
DIRECTOR OF QUALITY CONTROL: transportation team got report/Jason
== END 2019-04-11 14:45 | DRG 356 ==
LOC: ER 11:40 → TELE1 13:59
PROVIDERS: ATTEND Family Medicine
PROC: 5A1955Z Respiratory Ventilation, Greater than 96 Consecutive Hours (ICD-10-PCS; principal; 2019-04-02)
PROC: 0JB70ZZ Excision of Back Subcutaneous Tissue and Fascia, Open Approach (ICD-10-PCS; 2019-04-04)
PROC: 0JB90ZZ Excision of Buttock Subcutaneous Tissue and Fascia, Open Approach (ICD-10-PCS; 2019-04-04)
PROC: 0DH63UZ Insertion of Feeding Device into Stomach, Percutaneous Approach (ICD-10-PCS; 2019-04-09)
DX: K94.22 Gastrostomy infection (principal); A41.9 Sepsis, unspecified organism; R53.2 Functional quadriplegia; N17.0 Acute kidney failure with tubular necrosis; J15.6 Pneumonia due to other Gram-negative bacteria; G93.41 Metabolic encephalopathy; R65.20 Severe sepsis without septic shock; J96.20 Acute and chronic respiratory failure, unspecified whether with hypoxia or hypercapnia; Z99.11 Dependence on respirator [ventilator] status; L03.311 Cellulitis of abdominal wall; D68.59 Other primary thrombophilia; E87.1 Hypo-osmolality and hyponatremia; J98.11 Atelectasis; I31.3 Pericardial effusion (noninflammatory); I25.10 Atherosclerotic heart disease of native coronary artery without angina pectoris; E11.9 Type 2 diabetes mellitus without complications; Z86.73 Personal history of transient ischemic attack (TIA), and cerebral infarction without residual deficits; E11.22 Type 2 diabetes mellitus with diabetic chronic kidney disease; E78.5 Hyperlipidemia, unspecified; D63.8 Anemia in other chronic diseases classified elsewhere; B96.89 Other specified bacterial agents as the cause of diseases classified elsewhere; Y83.3 Surgical operation with formation of external stoma as the cause of abnormal reaction of the patient, or of later complication, without mention of misadventure at the time of the procedure; Y92.9 Unspecified place or not applicable; F32.9 Major depressive disorder, single episode, unspecified; F41.9 Anxiety disorder, unspecified; F09 Unspecified mental disorder due to known physiological condition; F03.90 Unspecified dementia, unspecified severity, without behavioral disturbance, psychotic disturbance, mood disturbance, and anxiety; E11.65 Type 2 diabetes mellitus with hyperglycemia; N18.9 Chronic kidney disease, unspecified; R13.10 Dysphagia, unspecified; R56.9 Unspecified convulsions; Z79.4 Long term (current) use of insulin; Z79.899 Other long term (current) drug therapy; I70.0 Atherosclerosis of aorta; M62.422 Contracture of muscle, left upper arm; M62.421 Contracture of muscle, right upper arm; M62.462 Contracture of muscle, left lower leg; M62.461 Contracture of muscle, right lower leg; Z79.84 Long term (current) use of oral hypoglycemic drugs; I12.9 Hypertensive chronic kidney disease with stage 1 through stage 4 chronic kidney disease, or unspecified chronic kidney disease; K94.23 Gastrostomy malfunction; Y95 Nosocomial condition; Z79.51 Long term (current) use of inhaled steroids
CPT/HCPCS: 31720; 36415; 43246; 71045-TC; 80048-TC; 80053-TC; 80061-TC; 80076-TC; 80202-TC; 81000-TC; 82550-TC; 82570-TC; 82962-TC; 83605-TC; 83735-TC; 83970; 84100-TC; 84155; 84155-TC; 84165; 84300-TC; 84443-TC; 84484-TC; 85025-TC; 85730-TC; 86850-TC; 87040-TC; 87070-TC; 87081-TC; 87086-TC; 87186-TC; 94002-TC; 94003-TC; 94640-TC; 94760-TC; 94762-TC; 99082-TC; A4217; A4623; A6248; A6253; A6403; A7526; C9113; G0378; J0690; J0692; J1650; J1815; J1940; J1953; J2543; J2704; J3370; J3490; J7030; J7060

== ENCOUNTER 2019-06-05 21:15 | Inpatient (IN) | payer MEDICARE, MEDICAID ==
[~2019-06-05] VITALS: Ht 172.7 cm; Wt 58.5 kg
[~2019-06-05 21:15] MED LIST changes: -AMIN30LI2 GT; +CEFE1PIG3 IV; +CRAN3875 GT; +FAMO-131 GT; +METO-295 GT; +METO100T14 GT; -METO25TA6 GT; +MULT-213 GT; -MULT-213 PO; +NUTR1PAC14 GT; -SENN-168 GT; +SENN-261 GT; +SULF1TAB3 GT; -ZINC220T4 GT
--- NOTE | 2019-06-05 21:30 | NUR ---
RT NOTE Pt rec'd trached on [facility] vent on ac mode settings given from transport RT. No resp distress or sob noted. Trach is patent and secured. Sx'd for thick mod amt of pale yellow secretions. Alarms are set and audible. vent plugged into red outlet. Ambu bag bedside. Will continue to monitor. Addendum: 06/05/19 at 2228 by REBA WALKER RT Amended: Links added.
--- NOTE | 2019-06-05 21:38 | NUR ---
PT SILAS FROM [facility] FOR GTUBE REPLACEMENT (20FR). PER RA G TUBE WAS NOT WORKING SINCE THE . HAS PLACED HIM ON IV HYDRATION. PT HAS MULLEN. PLACED ON MONITOR AND PULSE OX. RT CALLED. PT ON VENT.
--- NOTE | 2019-06-05 21:39 | NUR ---
AC 18 TV 550 FIO2 40 PEEP 5
--- NOTE | 2019-06-05 22:03 | NUR ---
Patient is resting comfortably in bed. VSS.
[2019-06-05 23:10] LABS: BASOPHILS # (AUTO) 0.1 /CMM (0.0-0.2); EOSINOPHILS % (AUTO) 6.9 % (0.0-6.0); HEMATOCRIT 28 % (39-51); HEMOGLOBIN 9.1 g/dL (13.5-17.5); LYMPHOCYTES # (AUTO) 1.8 /CMM (0.8-4.8); LYMPHOCYTES % (AUTO) 24.1 % (20.0-44.0); MEAN CORPUSCULAR HGB CONC 33 g/dl (31.0-36.0); MEAN CORPUSCULAR VOLUME 90 fL (80-96); MONOCYTES # (AUTO) 0.8 /CMM (0.1-1.30); MONOCYTES % (AUTO) 10.1 % (2.0-12.0); NEUTROPHILS # (AUTO) 4.4 /CMM (1.8-8.9); NEUTROPHILS % (AUTO) 57.9 % (43.0-81.0); PLATELET COUNT (AUTO) 365 /CMM (150-450); RED BLOOD CELL COUNT(AUTO) 3.11 MIL/uL (4.5-6.0); WHITE BLOOD COUNT (AUTO) 7.6 K/uL (4.3-11.0)
--- NOTE | 2019-06-05 23:22 | NUR ---
Pt in bed comfortably. vss.
[2019-06-05 23:24] LABS: ALBUMIN 2.5 g/dL (3.4-5.0); BILIRUBIN,DIRECT 0.1 mg/dL (0.0-0.2); BILIRUBIN,TOTAL 0.2 mg/dL (0.2-1.0); CALCIUM, SERUM 8.2 mg/dL (8.5-10.1); CREATININE 1.2 mg/dL (0.6-1.3); POTASSIUM 3.2 mmol/L (3.5-5.1); TOTAL PROTEIN, SERUM 7.5 g/dL (6.4-8.2)
[2019-06-05] MEDS ORDERED: IOHEXOL-300 100 ML VIAL IV ONE (23:33)
[2019-06-05] MEDS ORDERED: IV NS 0.9% 250 ML IV ONE (23:34)
[2019-06-05] MEDS ORDERED: CT SWABBABLE VALVE TRANS SET 1 EA INFUS.SET MC ONE (23:34)
--- NOTE | 2019-06-05 23:47 | NUR ---
URINE COLLECTED AND SENT TO LAB
[2019-06-05 23:51] LABS: APPEARANCE,URINE Slightly Cloudy (CLEAR); BILIRUBIN,URINE Negative (NEGATIVE); BLOOD, URINE Small Ery/uL (NEGATIVE); COLOR,URINE Yellow (YELLOW); KETONES,URINE Negative (NEGATIVE); LEUKOCYTE ESTERASE ,URINE Trace (NEGATIVE); NITRITE, URINE Negative (NEGATIVE); PROTEIN,URINE >=300 mg/dl (NEGATIVE); UGLUCOSE Negative (NEGATIVE); UROBILINOGEN,URINE 0.2 EU/dL (0.2)
--- NOTE | 2019-06-05 23:52 | NUR ---
PT TRANSFERRED TO CT VIA ACLS PROTOCOL
[2019-06-06 00:02] LABS: BACTERIA,URINE 1+ /HPF (None Seen); SQUAMOUS EPITHELIAL CELL,UR Few /HPF (None Seen)
--- NOTE | 2019-06-06 00:05 | NUR ---
brought to ct
--- NOTE | 2019-06-06 01:54 | NUR ---
Patient is resting comfortably in bed. Easily aroused. VSS.
[2019-06-06] MEDS ORDERED: IV NS 0.9% 1,000 ML BAG IV ONE (02:00)
--- NOTE | 2019-06-06 02:01 | NUR ---
DAMI SHULTZ TALKING TO DR. BLEVINS REGARDING PT ADMISSION.
--- NOTE | 2019-06-06 02:03 | NUR ---
BED ASSIGNMENT 325-2
[2019-06-06] MEDS ORDERED: VANCOMYCIN 1 GM VIAL ONE (02:05)
[2019-06-06] MEDS ORDERED: IPRA12.9 IH (02:15)
[2019-06-06] MEDS ORDERED: VANCOMYCIN 1 GM in IV D5W 250 ML IV ONE (02:30)
[2019-06-06] MEDS ORDERED: IV D5/0.45 NACL 1,000 ML IV PRN (03:05)
--- NOTE | 2019-06-06 03:18 | NUR ---
REPORT GIVEN TO SONAL GARRIDO FOR CORA
--- NOTE | 2019-06-06 03:19 | NUR ---
AWARE OF K OF 3.2
[2019-06-06 03:30] VITALS: BP 159/87
[2019-06-06] MEDS ORDERED: ACETAMINOPHEN 325 MG TABLET PO PRN (03:30)
[2019-06-06] MEDS ORDERED: ZOLPIDEM TARTRATE 5 MG TABLET PO PRN (03:30)
[2019-06-06] MEDS ORDERED: HYDROCODONE/APAP 5/325MG 1 EACH TABLET PO PRN (03:30)
[2019-06-06] MEDS ORDERED: MAG HYDROX/AL HYDROX/SIMETH 30 ML UDC PO PRN (03:30)
[2019-06-06] MEDS ORDERED: ONDANSETRON HCL/PF 4 MG/2 ML VIAL IVP PRN (03:30)
[2019-06-06] MEDS ORDERED: MAGNESIUM HYDROXIDE 30 ML UDC PO PRN (03:30)
[2019-06-06] MEDS ORDERED: Z GUARD REMEDY 2 OZ OINT TP PRN (03:30)
--- NOTE | 2019-06-06 03:40 | NUR ---
ADMISSION 68 y/o male admitted for Gtube malfunction. Patient is non verbal, trach intact, vent dependent. Skin body assessment done, pressure injury to sacrum noted upon initial assessment. Fall/skin/aspiration precaution. On contact isolation, Hx CRE. PPE utilized.
[2019-06-06] MEDS ORDERED: PIPERACILLIN /TAZOBACTAM 3.375 G in IV D5W 50 ML IV ONE (04:00)
[2019-06-06] MEDS ORDERED: PIPERACILLIN /TAZOBACTAM 3.375 G VIAL IV ONE (04:09)
[2019-06-06 04:41] VITALS: BP 159/87
--- NOTE | 2019-06-06 06:30 | NUR ---
END OF SHIFT REPORT Patient in bed, eyes open, non verbal. Trach intact, mechanical vent in place, settings per RT. Maintained NPO, IVF infusing, IV antibiotic as scheduled. Sinus rhythm in the Tele monitor. Abdomen presence of Gtube, clamped. Contact isolation, PPE utilized. Gtube malfunction, Plan GI/Surgery consult today.
--- NOTE | 2019-06-06 07:00 | NUR ---
Tele/RN Opening Note Patient receive in bed, able to response physical stimuli. Pt does no s/s of respiratory distress, skin is warm to touch, IV site is intact. No adverse reaction observed from ATB therapy. Call light within reach, kept elevated HOB, will continue to monitor.
[2019-06-06 08:00] VITALS: BP 143/70
[2019-06-06] MEDS ORDERED: FEE PK DOSING 1 MIN EA MC ONE (08:39)
[2019-06-06] MEDS: PIPERACILLIN /TAZOBACTAM 3.375 G in IV D5W 50 ML IV SCH ×3 (12:58→23:51)
[2019-06-06] MEDS: LEVETIRACETAM (500MG) 1,000 MG in IV NS 0.9% 100 ML IV SCH ×2 (14:13→23:13)
[2019-06-06] MEDS ORDERED: BISACODYL SUPP (10 MG) 10 MG/SUPP.RECT SUPP.RECT RC PRN (14:30)
[2019-06-06] MEDS ORDERED: TPN/PPN PER PHARMACY IV PRN (14:30)
[2019-06-06] MEDS ORDERED: INSULIN REGULAR, HUMAN 100 UNIT/ML 3 ML VIAL SQ PRN (14:30)
[2019-06-06] MEDS ORDERED: DEXTROSE 50%-WATER 50 ML DISP.SYRIN IV PRN ×2 (14:30→14:52)
[2019-06-06] MEDS: VANCOMYCIN 0.75 GM in IV D5W 250 ML IV SCH (14:58)
[2019-06-06 16:00] VITALS: BP 145/85
[2019-06-06 16:06] LABS: CALCIUM, SERUM 7.9 mg/dL (8.5-10.1); CREATININE 1.2 mg/dL (0.6-1.3)
[2019-06-06 16:08] LABS: POTASSIUM 2.8 mmol/L (3.5-5.1)
--- NOTE | 2019-06-06 16:52 | NUR ---
RT NOTE: RECEIVED PT ON NOTED ORDERED VENT SETTINGS. NO RESPIRATORY DISTRESS NOTED. TRACH CHECKED SECURE AND PATENT. SXD AND LAVAGE PT Q ROUND AND NEEDED. TRACH CARE DONE. SPARE TRACH AND AMBU BAG @ BEDSIDE. ALARMS CHECKED ON AND AUDIBLE.
[2019-06-06 16:57] LABS: MAGNESIUM 1.4 mg/dL (1.8-2.4); PHOSPHORUS 2.4 mg/dL (2.5-4.9)
[2019-06-06] MEDS: FAMOTIDINE (20 MG) 20 MG TABLET PEG SCH (17:00)
[2019-06-06] MEDS: SODIUM CHLORIDE 1000 MG TABLET GT SCH (17:00)
[2019-06-06] MEDS: PROSOURCE / PROSTAT (PYXIS) 30 ML UDC GT SCH (17:00)
[2019-06-06] MEDS ORDERED: BLOOD SUGAR DIAGNOSTIC 1 EACH STRIP IN SCH (17:30)
[2019-06-06] MEDS ORDERED: FEE TPN 1 MIN EA MC ONE (17:31)
[2019-06-06] MEDS: POTASSIUM CL. PREMIX PERIPHER. 50 ML IV SCH ×5 (17:54→21:36)
[2019-06-06] MEDS: BLOOD SUGAR DIAGNOSTIC 1 EACH STRIP IN SCH ×2 (18:00→18:27)
[2019-06-06] MEDS: Magnesium 1GM/D5W 100ML PREMIX 100 ML IV SCH ×4 (18:14→21:36)
--- NOTE | 2019-06-06 19:00 | NUR ---
Tele/RN Cloning Note Pt in bed comfortably, respiratory even and unlabored.Skin is warm to touch and clean, also intact new picc line, and dressing, no drainage observed, good patency with NS flash. Kept low position of bed with elevated HOB. Call light within reach, will endorse night nurse.
--- NOTE | 2019-06-06 19:30 | NUR ---
EQUITY TRADER NOTE: PATIENT RESTING IN BED, NO ACUTE DISTRESS NOTED. BREATHING EVEN AND UNLABORED, NO SOB NOTED. VENT SETTING IN PLACE. MULLEN CATHETER IN PLACE, EMPTY AT THIS TIME. PICC LINE TO BLANCA IN PLACE. IV TO LEFT FINGER IN PLACE. G-TUBE CLAMPED AT THIS TIME. ISOLATION PRECAUTION OBSERVED. BED LOCKED AND IN LOWEST POSITION, CALL LIGHT IN REACH. WILL CONTINUE TO MONITOR.
[2019-06-06] MEDS: IPRATROPIUM NEB FS 0.5 MG/2.5 ML AMPUL.NEB NEB SCH (19:54)
[2019-06-06 20:00] VITALS: BP 164/86
[2019-06-06] MEDS: METOPROLOL TARTRATE 50 MG TABLET PO SCH (21:00)
[2019-06-06] MEDS: POTASSIUM PHOSPHATE MM 7.5 MMOL in IV D5W 100 ML IV SCH (21:11)
[2019-06-06] MEDS: SENNOSIDES 8.6 MG TABLET GT SCH (21:55)
[2019-06-06] MEDS ORDERED: TPN BAG #1 IV PRN ×4 (22:00)
[2019-06-07] VITALS: BP 155/99
[2019-06-07] MEDS: BLOOD SUGAR DIAGNOSTIC 1 EACH STRIP IN SCH ×4 (00:30→17:32)
[2019-06-07] MEDS: POTASSIUM PHOSPHATE MM 7.5 MMOL in IV D5W 100 ML IV SCH (00:30)
--- NOTE | 2019-06-07 00:30 | NUR ---
MUTUEL DEPARTMENT MANAGER NOTE: PATIENT BLOOD SUGAR LEVEL 185MG/DL, NO INSULIN GIVEN AT THIS TIME, PATIENT HAS NOT STARTED TPN YET. NO S/S OF HYPER/HYPOGLYCEMIA NOTED. WILL CONTINUE TO MONITOR.
[2019-06-07] MEDS: VANCOMYCIN 0.75 GM in IV D5W 250 ML IV SCH ×2 (01:38→14:18)
[2019-06-07 04:00] VITALS: BP 169/91
[2019-06-07] MEDS: PIPERACILLIN /TAZOBACTAM 3.375 G in IV D5W 50 ML IV SCH ×4 (05:19→23:59)
[2019-06-07] MEDS: INSULIN REGULAR, HUMAN 100 UNIT/ML 3 ML VIAL SQ PRN ×3 (06:22→17:32)
--- NOTE | 2019-06-07 06:30 | NUR ---
SILVERING APPLICATOR NOTE: PATIENT RESTING IN BED, NO ACUTE DISTRESS NOTED. BREATHING EVEN AND UNLABORED, NO SOB NOTED. VENT SETTING IN PLACE. MULLEN CATHETER IN PLACE, DRAINED 130O CLEAR YELLOW URINE. PICC LINE TO BLANCA IN PLACE, INFUSING TPN AT 50ML/HR. IV TO LEFT FINGER IN PLACE. G-TUBE CLAMPED. PATIENT BLOOD SUGAR LEVEL 219MG/DL, PATIENT TO RECEIVE 4 UNITS OF INSULIN PER SLIDING SCALE. NO S/S OF HYPER/HYPOGLYCEMIA NOTED. ISOLATION PRECAUTION OBSERVED. BED LOCKED AND IN LOWEST POSITION, CALL LIGHT IN REACH. WILL ENDORSE TO DAY NURSE TO CONTINUE WITH PLAN OF CARE.
--- NOTE | 2019-06-07 07:19 | NUR ---
RN OPENING NOTE PT WAS RECEIVED IN BED AT LOWEST AND LOCKED POSITION WITH SIDE RAILS UP X2, PT IS NOTED TO BE NON-VERBAL OBTUNDED, ON VENT WITH VENT SETTINGS NOTED, ON TELE MONITOR SHOWING SR 60's, MULLEN IN PLACE AND DRAINING, NOTED TO HAVE BLANCA PICC THAT IS PATENT AND INTACT WITH TPN RUNNING, SAFETY PRECAUTIONS IN PLACE, CALL LIGHT IN REACH, WILL MONITOR ACCORDINGLY
[2019-06-07] MEDS: IPRATROPIUM NEB FS 0.5 MG/2.5 ML AMPUL.NEB NEB SCH ×3 (07:48→19:31)
[2019-06-07 07:59] LABS: BASOPHILS % (AUTO) 0.5 % (0.0-2.0); EOSINOPHILS % (AUTO) 4.3 % (0.0-6.0); HEMATOCRIT 30 % (39-51); HEMOGLOBIN 9.9 g/dL (13.5-17.5); LYMPHOCYTES # (AUTO) 1.2 /CMM (0.8-4.8); LYMPHOCYTES % (AUTO) 13.2 % (20.0-44.0); MEAN CORPUSCULAR HGB CONC 33 g/dl (31.0-36.0); MEAN CORPUSCULAR VOLUME 88 fL (80-96); MONOCYTES % (AUTO) 10.9 % (2.0-12.0); NEUTROPHILS # (AUTO) 6.3 /CMM (1.8-8.9); NEUTROPHILS % (AUTO) 71.1 % (43.0-81.0); PLATELET COUNT (AUTO) 333 /CMM (150-450); RED BLOOD CELL COUNT(AUTO) 3.37 MIL/uL (4.5-6.0); WHITE BLOOD COUNT (AUTO) 8.9 K/uL (4.3-11.0)
[2019-06-07 08:00] VITALS: BP 155/83
[2019-06-07 08:09] LABS: ALBUMIN 2.4 g/dL (3.4-5.0); BILIRUBIN,TOTAL 0.4 mg/dL (0.2-1.0); CALCIUM, SERUM 7.7 mg/dL (8.5-10.1); CREATININE 1.3 mg/dL (0.6-1.3); MAGNESIUM 2.2 mg/dL (1.8-2.4); PHOSPHORUS 2.6 mg/dL (2.5-4.9); POTASSIUM 3.3 mmol/L (3.5-5.1); TOTAL PROTEIN, SERUM 7.4 g/dL (6.4-8.2)
[2019-06-07 08:39] LABS: ABG BASE EXCESS -2.3 mmol/L; ABG OXYGEN SATURATION 98.5 % (92.0-98.5); ABG PCO2 29.1 mmHg (35.0-45.0); ABG PH 7.468 (7.350-7.450); ABG PO2 181.5 mmHg (75.0-100.0); AaDO2 70.2 mmHg; COHb 0.3 % (0.5-1.5); MetHb 0.6 % (0.0-1.5); O2Hb 97.6 % (94.0-97.0); PEEP,BG 5 cm H2O; SITE, ABG Right Radial; VT, ABG 550 mL
--- NOTE | 2019-06-07 08:55 | NUR ---
RN NOTE HOSPITALIST HERMANN INFORMED OF PT HAVING SCHEDULED LANTUS 80 UNITS WHILE BEING ON TPN AND D5 1/2 NS, PER HOSPITALIST HERMANN JUST GIVE 40 UNITS AND CONTINUE TO MONITOR
[2019-06-07] MEDS: PROSOURCE / PROSTAT (PYXIS) 30 ML UDC GT SCH ×2 (08:59→16:07)
[2019-06-07] MEDS: DOCUSATE SODIUM LIQ 100 MG/10 ML UDC GT SCH (08:59)
[2019-06-07] MEDS: SODIUM CHLORIDE 1000 MG TABLET GT SCH ×3 (08:59→16:07)
[2019-06-07] MEDS: METOPROLOL TARTRATE 50 MG TABLET PO SCH ×2 (09:00→22:28)
[2019-06-07] MEDS: FAMOTIDINE (20 MG) 20 MG TABLET PEG SCH ×2 (09:00→16:08)
[2019-06-07] MEDS: ASCORBIC ACID 500 MG TABLET GT SCH (09:00)
[2019-06-07] MEDS: MULTIVIT W/MINERALS 1 TAB TABLET PO SCH (09:00)
[2019-06-07] MEDS ORDERED: Medication Not On Formulary EA (Cran/Vitc/Mannose/Inulin/Brom (Uti-Stat Liquid) 3,875 MG GT SCH (09:00)
[2019-06-07] MEDS: LEVETIRACETAM (500MG) 1,000 MG in IV NS 0.9% 100 ML IV SCH ×2 (09:03→22:00)
[2019-06-07] MEDS: INSULIN GLARGINE, 100 UNIT/ML CARTRIDGE SQ SCH (09:05)
[2019-06-07 12:00] VITALS: BP 148/80
[2019-06-07] MEDS: POTASSIUM CL. PREMIX PERIPHER. 50 ML IV SCH ×2 (12:04→13:26)
[2019-06-07 16:00] VITALS: BP 132/71
--- NOTE | 2019-06-07 18:28 | NUR ---
RN CLOSING NOTE PT IN BED AT LOWEST AND LOCKED POSITION WITH SIDE RAILS UP X2, NONVERBAL OBTUNDED, ON VENT WITH NO S/S OF ANY DISTRESS OR PAIN NOTED AT THIS TIME, IV IS PATENT AND INTACT WITH IVF RUNNING, SAFETY PRECAUTIONS IN PLACE, CALL LIGHT IN REACH, ALL NEEDS ATTENDED TO, WILL ENDORSE TO NIGHT RN FOR CORA.
[2019-06-07 20:00] VITALS: BP 164/94
[2019-06-07] MEDS ORDERED: IV D5/0.45 NACL 1,000 ML IV PRN (22:01)
[2019-06-07] MEDS: SENNOSIDES 8.6 MG TABLET GT SCH (22:28)
[2019-06-07] MEDS ORDERED: TPN BAG #2 IV PRN ×4 (23:00)
[2019-06-08] VITALS (7 sets, daily range): BP systolic 138–168; BP diastolic 67–98
[2019-06-08] MEDS: BLOOD SUGAR DIAGNOSTIC 1 EACH STRIP IN SCH ×4 (00:09→16:58)
[2019-06-08] MEDS: INSULIN REGULAR, HUMAN 100 UNIT/ML 3 ML VIAL SQ PRN ×4 (00:09→17:09)
[2019-06-08] MEDS: VANCOMYCIN 0.75 GM in IV D5W 250 ML IV SCH ×2 (02:16→14:25)
[2019-06-08] MEDS: PIPERACILLIN /TAZOBACTAM 3.375 G in IV D5W 50 ML IV SCH ×3 (06:02→19:23)
--- NOTE | 2019-06-08 07:00 | NUR ---
SUPERVISOR PRODUCT INSPECTION OPENING NOTES PATIENT RESTING COMFORTABLY IN BED; PATIENT IS AWAKE BUT IS NONVERBAL. BREATHING EVEN AND UNLABORED; NO CHANGES IN VENT SETTINGS AT THIS TIME. TELE MONITOR SR 97S; MULLEN CATH INTACT AND PATENT; URINE FLOWING WELL; L FINGER #22 CLEAN, INTACT AND PATENT; FLUSHING WELL; NO S/S OF REDNESS OR INFILTRATION NOTED; BLANCA PICC 3 LUMEN CLEAN, DRY, INTACT AND PATENT; ALSO FLUSHING WELL; NO S/S OF REDNESS OR INFILTRATION NOTED; TPN RUNNING 60ML/HR WITH NO ISSUES. BED LOCKED IN LOWEST POSITION; SAFETY PRECAUTIONS IN PLACE; SIDE RAILS UP X4. WILL CONTINUE TO MONITOR.
[2019-06-08 07:33] LABS: CALCIUM, SERUM 7.6 mg/dL (8.5-10.1); CREATININE 1.3 mg/dL (0.6-1.3)
[2019-06-08] MEDS: IPRATROPIUM NEB FS 0.5 MG/2.5 ML AMPUL.NEB NEB SCH ×3 (07:46→19:47)
[2019-06-08 07:57] LABS: POTASSIUM 2.8 mmol/L (3.5-5.1)
[2019-06-08] MEDS: LEVETIRACETAM (500MG) 1,000 MG in IV NS 0.9% 100 ML IV SCH ×2 (08:51→20:12)
[2019-06-08] MEDS: SODIUM CHLORIDE 1000 MG TABLET GT SCH ×3 (09:00→16:56)
[2019-06-08] MEDS: FAMOTIDINE (20 MG) 20 MG TABLET PEG SCH ×2 (09:00→16:56)
[2019-06-08] MEDS: ASCORBIC ACID 500 MG TABLET GT SCH (09:00)
[2019-06-08] MEDS: METOPROLOL TARTRATE 50 MG TABLET PO SCH ×2 (09:00→21:00)
[2019-06-08] MEDS: DOCUSATE SODIUM LIQ 100 MG/10 ML UDC GT SCH (09:00)
[2019-06-08] MEDS: MULTIVIT W/MINERALS 1 TAB TABLET PO SCH (09:00)
[2019-06-08] MEDS: INSULIN GLARGINE, 100 UNIT/ML CARTRIDGE SQ SCH (09:00)
[2019-06-08] MEDS: PROSOURCE / PROSTAT (PYXIS) 30 ML UDC GT SCH ×2 (09:00→16:56)
[2019-06-08 11:00] LABS: MAGNESIUM 1.7 mg/dL (1.8-2.4)
[2019-06-08] MEDS: POTASSIUM CL. PREMIX PERIPHER. 50 ML IV SCH ×4 (11:05→16:58)
--- NOTE | 2019-06-08 11:26 | NUR ---
rn notes bs-119 mg/dl held Lantus 80 units as scheduled.
--- NOTE | 2019-06-08 13:03 | NUR ---
RN NOTES BS-150 MG/DL, COVERAGE GIVEN, INFUSING KCL 50 ML/HR ON RIGHT PICC LINE INTACT, ASSIST PATIENT TURN AND REPOSTION Q 2 HR, PATIENT TRACHEA /VENT DEPENDENT.
[2019-06-08] MEDS ORDERED: TPN BAG#3 IV PRN ×5 (15:00)
--- NOTE | 2019-06-08 17:55 | NUR ---
RT NOTE PT REMAINS MECHANICALLY VENTILATED VIA CUFFED TRACHEOSTOMY TUBE. CUFF INFLATED. TRACH TUBE MIDLINE AND SECURE. VENTILATOR SETTINGS PRESCRIBED. ALARMS SET PER PROTOCOL AND AUDIBLE. VENT PLUGGED IN TO RED OUTLET. AMBU BAG AND BACK UP TRACH AT BED SIDE. NO DISTRESS NOTED. Addendum: 06/08/19 at 1756 by MAYA WESTBROOK RT Amended: Links added.
--- NOTE | 2019-06-08 19:35 | NUR ---
LANDSCAPE AND YARDWORK LABORER OPENING NOTES RECEIVED PATIENT FROM MORNING SHIFT. EYES OPEN NONVERBAL BUT WITHDRAWS TO PAIN STIMULI. TRACH INTACT AND PATENT. BREATHING REGULAR AND UNLABORED ON MECHANICAL VENTILATOR. RIGHT UPPER ARM PICC LINE INTACT AND PATENT, INFUSING WELL WITH NO BLEEDING OR S/S OF INFECTION/INFILTRATION NOTED. LEFT FINGER G22 IV LINE UNABLE TO FLUSH. ON CARDIAC MONITORING WITH NSR AT 68bpm. OLD GTUBE STOMA CLEAN WITH MINIMAL DISCHARGES NOTED, DRESSING INTACT AND CLEAN. NO S/S OF PAIN/DISCOMFORT SEEN OF THE TIME. BED LOW AND LOCKED ON SEMI FOWLERS POSITION. CALL LIGHT IN REACH. WILL CONTINUE TO MONITOR.
--- NOTE | 2019-06-08 19:49 | NUR ---
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 SURGERY FOR SCHEDULE TOMORROW, JUN 09, 2019. ALL ORDERS READ BACK, VERIFIED AND CARRIED OUT.
--- NOTE | 2019-06-08 20:50 | NUR ---
COKE CRANE OPERATOR NOTES CALLED NEXT OF KIN OMER NAQVI (NIECE) AND GOT TELEPHONE CONSENT FOR SURGERY TOMORROW UNDER . WITNESSED AND CO-SIGNED BY EZRA GRARIDO.
[2019-06-08] MEDS: SENNOSIDES 8.6 MG TABLET GT SCH (21:15)
[2019-06-09] VITALS: BP 158/87
[2019-06-09] MEDS: BLOOD SUGAR DIAGNOSTIC 1 EACH STRIP IN SCH ×4 (00:07→18:34)
[2019-06-09] MEDS: INSULIN REGULAR, HUMAN 100 UNIT/ML 3 ML VIAL SQ PRN ×4 (00:08→18:36)
--- NOTE | 2019-06-09 00:15 | NUR ---
ELECTRICAL CONTINUITY TESTER NOTES BS 198mg/dl, NO INSULIN GIVEN PATIENT ON NPO FOR SURGERY TOMORROW. WILL CONTINUE TO MONITOR.
[2019-06-09] MEDS: VANCOMYCIN 0.75 GM in IV D5W 250 ML IV SCH ×2 (01:06→15:44)
--- NOTE | 2019-06-09 01:30 | NUR ---
VICE PRESIDENT OF CONTRACTS NOTES SEEN AND EXAMINED BY INFECTIOUS DSE WITH ORDERS TO REPEAT URINE AND WOUND CULTURE FROM GTUBE SITE NOTED AND CARRIED OUT.
[2019-06-09] MEDS: PIPERACILLIN /TAZOBACTAM 3.375 G in IV D5W 50 ML IV SCH ×5 (05:31→18:34)
--- NOTE | 2019-06-09 06:40 | NUR ---
COMPLIANCE ASSOCIATE CLOSING NOTES PATIENT IN BED OBTUNDED WITH EYES OPEN NONVERBAL BUT WITHDRAWS TO PAIN STIMULI. TRACH INTACT AND PATENT. BREATHING REGULAR AND UNLABORED ON MECHANICAL VENTILATOR. RIGHT UPPER ARM PICC LINE INTACT AND INFUSING WELL. MAINTAINED ON CARDIAC MONITORING WITH NSR AT 81bpm. ON-GOING WOUND TREATMENTS PROVIDED. REPOSITIONED EVERY 2HRS. AND NEEDED. MULLEN CATH INTACT AND PATENT WITH 930CC CLEAR YELLOW URINE. NO S/S OF PAIN/DISCOMFORT SEEN THE WHOLE SHIFT. BED LOW AND LOCKED ON SEMI FOWLERS POSITION. CALL LIGHT IN REACH. WILL ENDORSE TO MORNING SHIFT FOR CORA.
--- NOTE | 2019-06-09 06:58 | NUR ---
DRAW BENCH OPERATOR HELPER OPENING NOTES PATIENT RESTING IN BED COMFORTABLY; PATIENT OPENS EYES BUT IS NONVERBAL; BREATHING EVEN AND UNLABORED; NO S/S OF ACUTE RESPIRATORY DISTRESS NOTED; NO CHANGES IN VENT SETTINGS AT THIS TIME; MULLEN CATH IN PLACE; URINE FLOWING WELL; BLANCA PICC LINE AND L FINGER IV SITE DRY, INTACT AND PATENT; FLUSHING WELL; NO S/S OF REDNESS OR INFILTRATION; BED LOCKED IN LOW POSITION; SIDE RAILS X3, RIYA N Addendum: 06/09/19 at 0738 by IONA ORTIZ RN CALL LIGHT WITHIN EASY REACH; WILL CONTINUE TO MONITOR.
[2019-06-09 07:43] LABS: BASOPHILS # (AUTO) 0.1 /CMM (0.0-0.2); BASOPHILS % (AUTO) 0.8 % (0.0-2.0); EOSINOPHILS % (AUTO) 5.1 % (0.0-6.0); HEMATOCRIT 32 % (39-51); HEMOGLOBIN 10.1 g/dL (13.5-17.5); LYMPHOCYTES # (AUTO) 1.5 /CMM (0.8-4.8); LYMPHOCYTES % (AUTO) 16.5 % (20.0-44.0); MEAN CORPUSCULAR HGB CONC 32 g/dl (31.0-36.0); MEAN CORPUSCULAR VOLUME 90 fL (80-96); MONOCYTES % (AUTO) 10.4 % (2.0-12.0); NEUTROPHILS # (AUTO) 6.2 /CMM (1.8-8.9); NEUTROPHILS % (AUTO) 67.2 % (43.0-81.0); PLATELET COUNT (AUTO) 368 /CMM (150-450); WHITE BLOOD COUNT (AUTO) 9.2 K/uL (4.3-11.0)
[2019-06-09 07:50] LABS: CALCIUM, SERUM 8.1 mg/dL (8.5-10.1); CREATININE 1.4 mg/dL (0.6-1.3); MAGNESIUM 1.8 mg/dL (1.8-2.4); PHOSPHORUS 2.1 mg/dL (2.5-4.9); POTASSIUM 3.4 mmol/L (3.5-5.1)
[2019-06-09 08:00] VITALS: BP_SYST 148; BP_SYST 162; BP_DIAS 86; BP_DIAS 93
[2019-06-09] MEDS ORDERED: TPN BAG#4 IV PRN ×7 (08:00)
[2019-06-09] MEDS: IPRATROPIUM NEB FS 0.5 MG/2.5 ML AMPUL.NEB NEB SCH ×3 (08:30→20:03)
[2019-06-09] MEDS: FAMOTIDINE (20 MG) 20 MG TABLET PEG SCH ×2 (09:00→17:00)
[2019-06-09] MEDS: MULTIVIT W/MINERALS 1 TAB TABLET PO SCH (09:00)
[2019-06-09] MEDS: DOCUSATE SODIUM LIQ 100 MG/10 ML UDC GT SCH (09:00)
[2019-06-09] MEDS: SODIUM CHLORIDE 1000 MG TABLET GT SCH ×3 (09:00→17:00)
[2019-06-09] MEDS: METOPROLOL TARTRATE 50 MG TABLET PO SCH ×2 (09:00→20:59)
[2019-06-09] MEDS: PROSOURCE / PROSTAT (PYXIS) 30 ML UDC GT SCH ×2 (09:00→17:00)
[2019-06-09] MEDS: ASCORBIC ACID 500 MG TABLET GT SCH (09:00)
[2019-06-09] MEDS: LEVETIRACETAM (500MG) 1,000 MG in IV NS 0.9% 100 ML IV SCH ×2 (09:11→20:25)
[2019-06-09] MEDS: INSULIN GLARGINE, 100 UNIT/ML CARTRIDGE SQ SCH (10:04)
[2019-06-09] MEDS ORDERED: LIDOCAINE HCL/MPF 1% 30 ML VIAL IJ ONE (11:03)
[2019-06-09] MEDS ORDERED: BACITRACIN 50000 UNITS/VIAL ONE (11:03)
[2019-06-09] MEDS ORDERED: BUPIVACAINE MPF 0.5% W/EPI INJ 30 ML VIAL ONE (11:03)
[2019-06-09] MEDS ORDERED: ANESTHESIA TRAY IN PYXIS 1 EA TRAY MC ONE (11:03)
--- NOTE | 2019-06-09 12:00 | NUR ---
ECOLOGICAL TECHNICAL OFFICER NOTES PATIENT WHEELED BY OR STAFF AND RESPIRATORY THERAPIST FOR PROCEDURE.
--- NOTE | 2019-06-09 12:04 | NUR ---
rn notes patient sweet pickle maker via OR nurse for procedure at this time, bs-240 mg/dl no coverage given. v/s taken stable.
[2019-06-09] MEDS ORDERED: INSULIN REGULAR, HUMAN 100 UNIT/ML 10 ML VIAL ONE (12:23)
--- NOTE | 2019-06-09 13:05 | NUR ---
SWING DRIVER NOTES PATIENT BACK FROM OR; STILL BEING MONITORED BY OR NURSE. BLOOD PRESSURE IS 148/80; PULSE 103. TEXTED OSIRIS ROBERT NP FOR TPN INFUSION RATE AND GTUBE FEEDING. AWAITING HIS RESPONSE. UNIVERSITY DEMONSTRATOR ATTACHED TO PATIENT; WILL CONTINUE TO MONITOR.
[2019-06-09] MEDS ORDERED: TPN BAG#5 IV PRN ×5 (14:00)
[2019-06-09] MEDS ORDERED: POTASSIUM PHOSPHATE MM 7.5 MMOL in IV D5W 100 ML IV SCH (14:00)
[2019-06-09 16:00] VITALS: BP 162/94
--- NOTE | 2019-06-09 18:19 | NUR ---
PATCH DRILLER CLOSING NOTES PATIENT RESTING COMFORTABLY IN BED; PATIENT NON-VERBAL; TRACH IN PLACE; BREATHING EVEN AND UNLABORED; VITALS ARE STABLE. NO S/S OF ACUTE RESPIRATORY DISTRESS NOTED; NO CHANGES IN VENT SETTINGS NOTED AT THIS TIME; AT BEDSIDE; BLANCA PICC LINE INTACT AND PATENT; FLUSHING WELL; TPN RUNNING @60ML/HR; MULLEN CATH INTACT; YELLOW/SWETA URINE OUTFLOW; WILL ENDORSE CONTINUITY OF CARE TO NIGHT NURSE.
--- NOTE | 2019-06-09 19:50 | NUR ---
CATHODE WASHER OPENING NOTES RECEIVED PATIENT FROM MORNING SHIFT. EYES OPEN NONVERBAL BUT WITHDRAWS TO PAIN STIMULI. TRACH INTACT AND PATENT. BREATHING REGULAR AND UNLABORED ON MECHANICAL VENTILATOR. RIGHT UPPER ARM PICC LINE INTACT AND PATENT, INFUSING WELL WITH NO BLEEDING OR S/S OF INFECTION/INFILTRATION NOTED. ON CARDIAC MONITORING WITH NSR AT 78bpm. S/P CLOSURE OF GASTROCUTANEOUS FISTULA WITH NO BLEEDING SEEN, DRESSING INTACT AND CLEAN. NO S/S OF PAIN/DISCOMFORT OBSERVED OF THE TIME. MULLEN CATH INTACT AND PATENT DRAINING CLEAR YELLOW URINE WITH MODERATE AMOUNT ON URINARY BAG. BED LOW AND LOCKED ON SEMI FOWLERS POSITION. CALL LIGHT IN REACH. WILL CONTINUE TO MONITOR.
[2019-06-09 20:42] VITALS: BP 144/83
[2019-06-09 21:00] VITALS: BP 144/83
[2019-06-09] MEDS: SENNOSIDES 8.6 MG TABLET GT SCH (21:04)
[2019-06-10] VITALS (20 sets, daily range): BP systolic 116–183; BP diastolic 69–126
[2019-06-10] MEDS: BLOOD SUGAR DIAGNOSTIC 1 EACH STRIP IN SCH ×4 (00:16→18:19)
[2019-06-10] MEDS: INSULIN REGULAR, HUMAN 100 UNIT/ML 3 ML VIAL SQ PRN ×5 (00:24→18:25)
--- NOTE | 2019-06-10 00:30 | NUR ---
ROPE CUTTER NOTES BS 199mg/dl, 3UNITS REGULAR INSULIN GIVEN SQ. ON-GOING TPN BAG INFUSING WELL. WILL CONTINUE TO MONITOR.
[2019-06-10] MEDS: VANCOMYCIN 0.75 GM in IV D5W 250 ML IV SCH ×2 (01:41→14:24)
[2019-06-10] MEDS: PIPERACILLIN /TAZOBACTAM 3.375 G in IV D5W 50 ML IV SCH ×5 (05:35→17:54)
--- NOTE | 2019-06-10 05:55 | NUR ---
PSYCHIATRIC SOCIAL WORKER SUPERVISOR NOTES BS 252mg/dl, 6UNITS REGULAR INSULIN GIVEN SQ. ON-GOING TPN BAG INFUSING WELL. WILL CONTINUE TO MONITOR.
--- NOTE | 2019-06-10 06:28 | NUR ---
DETAILER PHARMACEUTICALS CLOSING NOTES PATIENT IN BED OBTUNDED WITH EYES OPEN NONVERBAL BUT WITHDRAWS TO PAIN STIMULI. TRACH INTACT AND PATENT. BREATHING REGULAR AND UNLABORED ON MECHANICAL VENTILATOR. RIGHT UPPER ARM PICC LINE INTACT AND INFUSING WELL. MAINTAINED ON CARDIAC MONITORING WITH NSR AT 94bpm. ON-GOING WOUND TREATMENTS PROVIDED. REPOSITIONED EVERY 2HRS. AND NEEDED. MULLEN CATH INTACT AND PATENT WITH 700CC CLOUDY YELLOW URINE. NO S/S OF PAIN/DISCOMFORT SEEN THE WHOLE SHIFT. NO ACTIVE BLEEDING NOTED ON OLD GTUBE SITE SURGERY. BED LOW AND LOCKED ON SEMI FOWLERS POSITION. CALL LIGHT IN REACH. WILL ENDORSE TO MORNING SHIFT FOR CORA.
[2019-06-10] MEDS: INSULIN GLARGINE, 100 UNIT/ML CARTRIDGE SQ SCH (07:40)
[2019-06-10] MEDS: IPRATROPIUM NEB FS 0.5 MG/2.5 ML AMPUL.NEB NEB SCH ×3 (07:43→19:57)
--- NOTE | 2019-06-10 07:45 | NUR ---
MS RN OPENING NOTES PATIENT RESTING IN BED COMFORTABLY; PATIENT IS NONVERBAL; PATIENT OPENS EYES WITH TOUCH AND WHEN NAME IS CALLED; TRACH IN PLACE; NO ACUTE RESPIRATORY DISTRESS NOTED; BREATHING EVEN AND UNLABORED; INFUSING TPN 60ML/HR THROUGH BLANCA PICC LINE; FLUSHING WELL; SITE INTACT AND PATENT; MULLEN CATH INTACT, FLOWING YELLOW OUTPUT. ASSISTED AND REPOSITIONED; HOB ELEVATED. RT AT BEDSIDE FOR BREATHING TREATMENT; BED LOCKED, SAFETY PRECAUTIONS IN PLACE; SIDE RAILS UP X3. WILL CONTINUE TO MONITOR.
--- NOTE | 2019-06-10 08:00 | NUR ---
RN NOTES BLOOD SUGAR 210 MG/DL; COVERAGE GIVEN; HELD ALL PO MEDS PER MD ORDERS. ABDOMEN DRESSING CHANGED; UO MULLEN CATH DRAINED 530 CC; YELLOW OUTPUT. PATIENT FULL CODE; INFUSING KEPPRA 220 ML/HR; HOB ELEVATED; PATIENT CONTRACTED, UPPER AND LOWER EXTREMITIES; SACRAL DRESSING INTACT. WILL CONTINUE TO MONITOR.
[2019-06-10] MEDS: ASCORBIC ACID 500 MG TABLET GT SCH (09:00)
[2019-06-10] MEDS: PROSOURCE / PROSTAT (PYXIS) 30 ML UDC GT SCH ×2 (09:00→16:00)
[2019-06-10] MEDS: MULTIVIT W/MINERALS 1 TAB TABLET PO SCH (09:00)
[2019-06-10] MEDS: METOPROLOL TARTRATE 50 MG TABLET PO SCH ×2 (09:00→21:00)
[2019-06-10] MEDS: DOCUSATE SODIUM LIQ 100 MG/10 ML UDC GT SCH (09:00)
[2019-06-10] MEDS: SODIUM CHLORIDE 1000 MG TABLET GT SCH ×3 (09:00→16:00)
[2019-06-10] MEDS: FAMOTIDINE (20 MG) 20 MG TABLET PEG SCH ×2 (09:00→16:00)
[2019-06-10] MEDS: LEVETIRACETAM (500MG) 1,000 MG in IV NS 0.9% 100 ML IV SCH ×2 (09:05→21:21)
[2019-06-10 09:28] LABS: CALCIUM, SERUM 7.2 mg/dL (8.5-10.1); CREATININE 1.4 mg/dL (0.6-1.3); MAGNESIUM 2.7 mg/dL (1.8-2.4); PHOSPHORUS 3.4 mg/dL (2.5-4.9); POTASSIUM 4.2 mmol/L (3.5-5.1)
--- NOTE | 2019-06-10 10:10 | NUR ---
MS RN NOTES PATIENT VOMITED X2; ZOFRAN ADMINISTERED.
--- NOTE | 2019-06-10 10:30 | NUR ---
RN NOTES PATIENT ABDOMEN IS DISTENDED; VOMITED X2; BS 168MG/DL, INFUSING TPN 60ML/HR, INTACT THROUGH BLANCA. KEPT HOB UP FOR ASPIRATION PRECAUTION; BP 160/100 PULSE 125, RR 22; O2 SAT 100%; NOTIFIED CLARIBEL DNP, STAT ABDOMINAL CT WITHOUT CONTRAST; TRANSFERRED PATIENT TO ICU ROOM [address]. REPORT GIVE TO ICU NURSE; REGINE. RN WILL FOLLOW PLAN OF CARE.
--- NOTE | 2019-06-10 10:45 | NUR ---
MONUMENT INSTALLER NOTES RECEIVED PATIENT OBTUNDED , NOT IN ACUTE DISTRESS , VENT SETTINGS ORDERED SPO2 OF 100% , TRACH OF PORTEX # [address] , SR 140'-150'S , BP ELEVATED , GT CLAMPED , ABDOMEN NOTED WITH DISTENTION , GT DRESSING NOTED WITH SMALL AMOUNT OF OLD BLOOD , FC DRAINING VIA GRAVITY WITH CLEAR YELLOW URINE , SKIN ASSESSMENT DONE , NOTED WITH SACRAL WOUND , BLANCA PICC LINE WITH TPN @ 60ML/HR PER PHARMACY , ALL NEEDS ATTENDED , PAGED CLARIBEL PRACTICE MANAGEMENT CONSULTANT
[2019-06-10 11:28] LABS: BASOPHILS % (AUTO) 0.5 % (0.0-2.0); EOSINOPHILS % (AUTO) 4.9 % (0.0-6.0); HEMATOCRIT 28 % (39-51); HEMOGLOBIN 8.6 g/dL (13.5-17.5); LYMPHOCYTES # (AUTO) 1.4 /CMM (0.8-4.8); LYMPHOCYTES % (AUTO) 14.9 % (20.0-44.0); MEAN CORPUSCULAR HGB CONC 31 g/dl (31.0-36.0); MEAN CORPUSCULAR VOLUME 95 fL (80-96); MONOCYTES # (AUTO) 0.9 /CMM (0.1-1.30); MONOCYTES % (AUTO) 9.8 % (2.0-12.0); NEUTROPHILS # (AUTO) 6.7 /CMM (1.8-8.9); NEUTROPHILS % (AUTO) 69.9 % (43.0-81.0); PLATELET COUNT (AUTO) 305 /CMM (150-450); RED BLOOD CELL COUNT(AUTO) 2.93 MIL/uL (4.5-6.0); WHITE BLOOD COUNT (AUTO) 9.7 K/uL (4.3-11.0)
--- NOTE | 2019-06-10 11:30 | NUR ---
ANTHROPOLOGY AND ARCHEOLOGY INSTRUCTOR NOTES SPOKE WITH CLARIBEL BOWL SANDER , DISCUSSED , PT LATEST V/S , REPEAT LAB RESULT AND CT ABDOMEN PELVIS RESULT , BOWL SANDER AWARE , ORDERED HERNANDEZ CULTURE , LACTIC ACID , AND PROCALCITONIN , ORDERED TO PLACE GT TO LOW INTERMITTENT SUCTION , ORDERS CARRIED OUT
--- NOTE | 2019-06-10 12:38 | NUR ---
EMERGENCY DEPT TECH NOTES URINE CULTURE AND SPUTUM COLLECTED , LABELED ANS SENT TO LAB
[2019-06-10 12:45] LABS: CALCIUM, SERUM 8.4 mg/dL (8.5-10.1); CREATININE 1.5 mg/dL (0.6-1.3)
[2019-06-10 12:47] LABS: POTASSIUM 2.7 mmol/L (3.5-5.1)
--- NOTE | 2019-06-10 12:50 | NUR ---
PAINTING MACHINE OPERATOR NOTES NOTIFIED CLARIBEL RHODES DATA ENTRY ANALYST REGARDING K OF 2.7 , PT ON TPN PER PHARMACY , DATA ENTRY ANALYST ORDERED TO REPLACED K WITH POTASSIUM CHLORIDE 40MEQ . ORDER CARRIED OUT
[2019-06-10] MEDS: POTASSIUM CL. PREMIX PERIPHER. 50 ML IV SCH ×4 (13:14→15:59)
--- NOTE | 2019-06-10 13:31 | NUR ---
INSULATION WORKER APPRENTICE NOTES SPOKE WITH CLARIBEL PROGRAM DIRECTOR AIR TALENT , DISCUSSED THAT PT HAS NO PRN IVP PAIN MEDICATION , PER PROGRAM DIRECTOR AIR TALENT START PT ON MORPHINE 2MG IVP PRN Q4 , ORDERS CARRIED OUT
[2019-06-10 13:34] LABS: PHOSPHORUS 2.4 mg/dL (2.5-4.9)
[2019-06-10] MEDS: MORPHINE SULFATE INJ 2 MG/ML DISP.SYRIN IV PRN ×2 (13:45→17:54)
[2019-06-10] MEDS ORDERED: IV NS 0.9% 250 ML IV PRN (14:00)
[2019-06-10] MEDS ORDERED: TPN BAG#6 IV PRN ×12 (14:30)
--- NOTE | 2019-06-10 14:35 | NUR ---
MECHANICAL CAD DRAFTER NOTES NOTIFIED CLARIBEL REGARDING BP OF 186/116 AND HR OF 130'S -150'S , MORPHINE WAS GIVEN 1 HOUR AGO BUT NO CHANGES IV VS NOTED , PER BRANCH ASSOCIATE , GIVE HYDRALAZINE 10MG IVP Q6 PRN FOR BP ABOVE 180 , ORDER CARRIED OUT
[2019-06-10] MEDS ORDERED: hydrALAZINE HCL IV 20 MG VIAL IV PRN (15:00)
[2019-06-10] MEDS ORDERED: SILVER SULFADIAZINE CREAM 25 GM TUBE TP SCH (15:00)
[2019-06-10] MEDS ORDERED: CLOTRIMAZOLE 1% 15 GM TUBE TP SCH (15:00)
--- NOTE | 2019-06-10 15:53 | NUR ---
APARTMENT MAINTENANCE SUPERVISOR NOTES SPOKE WITH CLARIBEL NOTIFIED PT HR OF 160-170'S ,BP 139/90 POST HYDRALAZINE 10MG IVP A,FEBRILE , NO BLEEDING NOTED , NO DISTRESS AND SOB , TOLERATING CURRENT VENT SETTINGS , DISCUSSED CT ABDOMEN PELVIS RESULT , GT LOW INTERMITTENT SUCTION DRAINING AT 100ML WITH BROWNISH OUTPUT WITH SEDIMENTS , PER PRISONER CLASSIFICATION INTERVIEWER , START HEPARIN 5,000U Q12 SQ , LABETALOL 20MQ IVP Q8H AND LOPRESSOR 5MG IVP NOW , ORDERS CARRIED OUT SPOKE WITH DR BENSON DISCUSSED HR OF 106-170 , WITH V/S AND CC OF PT PRIOR TO TRANSFER , DISCUSSED CT ABD PELVIS RESULT AND CURRENT V/S AND VENT SETTINGS , PER MD ORDER STAT ABG , EKG AND CHEST XRAY , ORDERS CARRIED OUT
[2019-06-10] MEDS ORDERED: METOPROLOL TARTRATE INJ 5 MG/5 ML AMPUL IVP ONE (16:00)
[2019-06-10 16:04] LABS: ABG BASE EXCESS -7.8 mmol/L; ABG OXYGEN SATURATION 98.6 % (92.0-98.5); ABG PCO2 24.2 mmHg (35.0-45.0); ABG PH 7.419 (7.350-7.450); ABG PO2 174.8 mmHg (75.0-100.0); AaDO2 82.6 mmHg; COHb 0.3 % (0.5-1.5); MetHb 0.7 % (0.0-1.5); O2Hb 97.6 % (94.0-97.0); PEEP,BG 5 cm H2O; SITE, ABG Right Radial; VT, ABG 550 mL
--- NOTE | 2019-06-10 16:11 | NUR ---
RADIOGRAPHY TECHNICIAN NOTES ABG AND EKG RESULT RELAYED TO DR MARCELINO MD AWARE .
--- NOTE | 2019-06-10 17:20 | NUR ---
WATER TREATMENT PLANT MECHANIC NOTES NOTIFIED DR BENSON REGARDING CHEST XRAY RESULT , HR IMPROVED @ 115-120 BMP POST LOPRESSOR 5MG IVP
--- NOTE | 2019-06-10 18:54 | NUR ---
CUTTER WOODWIND REEDS NOTES CALLED SANNA F/U TPN BAG , NO TPN AVAILABLE IN THE [facility] AT THIS TIME , PHARMACIST AWARE .
[2019-06-10] MEDS: LABETALOL HCL IV 100MG VIAL IV SCH (21:22)
[2019-06-10] MEDS: HEPARIN SODIUM, PORCINE 5000 UNITS/1 ML VIAL SQ SCH (21:23)
[2019-06-10] MEDS: SENNOSIDES 8.6 MG TABLET GT SCH (21:23)
[2019-06-11] VITALS (31 sets, daily range): BP systolic 86–178; BP diastolic 48–98
[2019-06-11] MEDS: INSULIN REGULAR, HUMAN 100 UNIT/ML 3 ML VIAL SQ PRN ×4 (00:30→18:44)
[2019-06-11] MEDS: PIPERACILLIN /TAZOBACTAM 3.375 G in IV D5W 50 ML IV SCH ×5 (00:30→23:08)
[2019-06-11] MEDS: BLOOD SUGAR DIAGNOSTIC 1 EACH STRIP IN SCH ×4 (00:30→18:41)
[2019-06-11] MEDS: VANCOMYCIN 0.75 GM in IV D5W 250 ML IV SCH ×2 (01:30→14:41)
[2019-06-11 04:35] LABS: BASOPHILS # (AUTO) 0.1 /CMM (0.0-0.2); BASOPHILS % (AUTO) 0.7 % (0.0-2.0); EOSINOPHILS % (AUTO) 3.8 % (0.0-6.0); HEMATOCRIT 26 % (39-51); HEMOGLOBIN 8.5 g/dL (13.5-17.5); LYMPHOCYTES # (AUTO) 1.4 /CMM (0.8-4.8); LYMPHOCYTES % (AUTO) 14.4 % (20.0-44.0); MEAN CORPUSCULAR HGB CONC 33 g/dl (31.0-36.0); MEAN CORPUSCULAR VOLUME 91 fL (80-96); MONOCYTES % (AUTO) 10.1 % (2.0-12.0); PLATELET COUNT (AUTO) 276 /CMM (150-450); RED BLOOD CELL COUNT(AUTO) 2.84 MIL/uL (4.5-6.0); WHITE BLOOD COUNT (AUTO) 9.8 K/uL (4.3-11.0)
[2019-06-11 04:58] LABS: CALCIUM, SERUM 7.9 mg/dL (8.5-10.1); CREATININE 1.4 mg/dL (0.6-1.3); PHOSPHORUS 2.4 mg/dL (2.5-4.9); POTASSIUM 3.2 mmol/L (3.5-5.1)
[2019-06-11] MEDS: LABETALOL HCL IV 100MG VIAL IV SCH ×3 (05:20→21:15)
[2019-06-11] MEDS ORDERED: TPN BAG #8 IV PRN ×7 (08:00)
[2019-06-11] MEDS ORDERED: TPN BAG #7 IV PRN ×5 (08:00)
[2019-06-11] MEDS: IPRATROPIUM NEB FS 0.5 MG/2.5 ML AMPUL.NEB NEB SCH ×3 (08:06→19:28)
[2019-06-11] MEDS ORDERED: DIATR MEGLU/DIATRIZOATE SODIUM 30 ML BOTTLE (GASTROGRAPHIN) ONE (08:38)
[2019-06-11] MEDS: POTASSIUM CL. PREMIX PERIPHER. 50 ML IV SCH ×4 (08:54→12:03)
[2019-06-11] MEDS: HEPARIN SODIUM, PORCINE 5000 UNITS/1 ML VIAL SQ SCH ×2 (08:54→21:13)
[2019-06-11] MEDS: LEVETIRACETAM (500MG) 1,000 MG in IV NS 0.9% 100 ML IV SCH ×2 (08:55→21:06)
[2019-06-11] MEDS: FAMOTIDINE (20 MG) 20 MG TABLET PEG SCH ×2 (09:00→16:39)
[2019-06-11] MEDS: MULTIVIT W/MINERALS 1 TAB TABLET PO SCH (09:00)
[2019-06-11] MEDS: DOCUSATE SODIUM LIQ 100 MG/10 ML UDC GT SCH (09:00)
[2019-06-11] MEDS: ASCORBIC ACID 500 MG TABLET GT SCH (09:00)
[2019-06-11] MEDS: METOPROLOL TARTRATE 50 MG TABLET PO SCH ×2 (09:00→21:00)
[2019-06-11] MEDS: SODIUM CHLORIDE 1000 MG TABLET GT SCH ×3 (09:00→16:39)
[2019-06-11] MEDS: PROSOURCE / PROSTAT (PYXIS) 30 ML UDC GT SCH ×2 (09:00→16:39)
[2019-06-11] MEDS: INSULIN GLARGINE, 100 UNIT/ML CARTRIDGE SQ SCH (10:26)
--- NOTE | 2019-06-11 11:22 | NUR ---
RT PT RECEIVED TRACH'D ON MECH VENT WITH SETTINGS PER MD ORDER. MAIL DISTRIBUTOR DONE. SPARE TRACH AND AMBU BAG AT BEDSIDE. VENT PLUGGED INTO RED OUTLET. ALARMS ON AND WORKING PROPERLY. BREATHING TX'S GIVEN ORDERED. NO ADVERSE REACTIONS OBSERVED. SUCTIONED AND MONITORED PRN. NO SOB NOTED AT THIS TIME. WILL CONTINUE TO MONITOR FOR ANY CHANGES.
--- NOTE | 2019-06-11 19:28 | NUR ---
PT RECEIVED TRACH'D PORTEX 7 ON MECH VENT WITH NOTED SETTINGS. FARE ENFORCEMENT OFFICER DONE. SPARE TRACH AND AMBU BAG AT BEDSIDE. VENT PLUGGED INTO RED OUTLET. ALARMS ON AND AUDIBLE. BREATHING TX'S GIVEN ORDERED. NO ADVERSE REACTIONS NOTED . SUCTIONED AND MONITORED PRN. NO SOB NOTED AT THIS TIME. WILL CONTINUE TO MONITOR FOR ANY CHANGES.
--- NOTE | 2019-06-11 20:00 | NUR ---
RN NOTE RECEIVED PT FROM ICU FROM LAMBERTO GARRIDO VIA [facility]. PT IS OBTUNDED. PT IS VENT DEPENDENT AND TOLERATING WELL. PT WITH MULLEN CATHETER AND DRAINING CLEAR YELLOW URINE. PT IS NPO. WITH GT CONNECTED TO LOW INTERMITTENT SUCTIONING ORDERED. WITH TPM RUNNING VIA PICC LINE ON BLANCA. CALL LIGHT WITHIN REACH, WILL MONITOR.
[2019-06-11] MEDS: SENNOSIDES 8.6 MG TABLET GT SCH (21:16)
[2019-06-12] VITALS: BP 139/70
[2019-06-12] MEDS: BLOOD SUGAR DIAGNOSTIC 1 EACH STRIP IN SCH ×5 (00:39→23:25)
[2019-06-12] MEDS: INSULIN REGULAR, HUMAN 100 UNIT/ML 3 ML VIAL SQ PRN (00:41)
[2019-06-12 04:00] VITALS: BP 139/74
[2019-06-12] MEDS: LABETALOL HCL IV 100MG VIAL IV SCH ×3 (04:21→20:16)
[2019-06-12] MEDS: PIPERACILLIN /TAZOBACTAM 3.375 G in IV D5W 50 ML IV SCH ×2 (05:28→11:25)
[2019-06-12 06:58] LABS: BASOPHILS # (AUTO) 0.1 /CMM (0.0-0.2); BASOPHILS % (AUTO) 0.8 % (0.0-2.0); HEMATOCRIT 28 % (39-51); HEMOGLOBIN 9.3 g/dL (13.5-17.5); LYMPHOCYTES # (AUTO) 1.6 /CMM (0.8-4.8); MEAN CORPUSCULAR HGB CONC 33 g/dl (31.0-36.0); MEAN CORPUSCULAR VOLUME 90 fL (80-96); MONOCYTES # (AUTO) 0.9 /CMM (0.1-1.30); MONOCYTES % (AUTO) 9.5 % (2.0-12.0); NEUTROPHILS # (AUTO) 6.6 /CMM (1.8-8.9); NEUTROPHILS % (AUTO) 66.7 % (43.0-81.0); PLATELET COUNT (AUTO) 302 /CMM (150-450); RED BLOOD CELL COUNT(AUTO) 3.12 MIL/uL (4.5-6.0); WHITE BLOOD COUNT (AUTO) 9.9 K/uL (4.3-11.0)
--- NOTE | 2019-06-12 07:00 | NUR ---
RN CLOSING NOTE ENDORSED TO MORNING SHIFT NURSE. PT OBTUNDED, VENT DEPENDENT AND TOLERATING SETTINGS WELL, NO SIGNS OF RESPIRATORY DISTRESS NOTED. NO INDICATIONS OF PAIN OR DISCOMFORT. MULLEN CATHETER INTACT, PATENT, DRAINING CLEAR YELLOW URINE. G-TUBE ON LOW INTERMITTENT SUCTION. PT NPO. RIGHT UPPER ARM PICC LINE INTACT, PATENT, SECURED WITH CLEAN DRESSING. TPN BAG #7 INFUSING INTO RIGHT UPPER ARM PICC AT 60.35 ML/HR.
--- NOTE | 2019-06-12 07:03 | NUR ---
FISHING VESSEL MATE OPENING NOTE RECEIVED REPORT FROM [facility] SHIFT NURSE. PT OBTUNDED, ON VENT, TOLERATING SETTINGS WELL, NO SIGNS OF RESPIRATORY DISTRESS NOTED. MULLEN CATHETER INTACT, PATENT, DRAINING CLEAR YELLOW URINE. G-TUBE ON LOW INTERMITTENT SUCTION. RIGHT UPPER ARM PICC LINE INTACT, PATENT, SECURED WITH CLEAN DRESSING. TPN BAG #7 INFUSING INTO RIGHT UPPER ARM PICC AT 60.35 ML/HR. ON TELE MONITOR SINUS TACH HR 111. BED IN LOW POSITION, LOCKED, CALL LIGHT WITHIN REACH. CONTACT ISOLATIONS IN PLACE.
[2019-06-12 07:24] LABS: CALCIUM, SERUM 8.8 mg/dL (8.5-10.1); CREATININE 1.5 mg/dL (0.6-1.3); MAGNESIUM 2.2 mg/dL (1.8-2.4); PHOSPHORUS 2.3 mg/dL (2.5-4.9); POTASSIUM 3.5 mmol/L (3.5-5.1)
[2019-06-12] MEDS: IPRATROPIUM NEB FS 0.5 MG/2.5 ML AMPUL.NEB NEB SCH ×3 (07:57→21:43)
[2019-06-12 08:00] VITALS: BP 131/77
[2019-06-12] MEDS: FAMOTIDINE (20 MG) 20 MG TABLET PEG SCH ×3 (09:00→16:40)
[2019-06-12] MEDS: PROSOURCE / PROSTAT (PYXIS) 30 ML UDC GT SCH ×2 (09:00→16:40)
[2019-06-12] MEDS: METOPROLOL TARTRATE 50 MG TABLET PO SCH ×3 (09:00→21:00)
[2019-06-12] MEDS: SODIUM CHLORIDE 1000 MG TABLET GT SCH (09:03)
[2019-06-12] MEDS: DOCUSATE SODIUM LIQ 100 MG/10 ML UDC GT SCH (09:03)
[2019-06-12] MEDS: HEPARIN SODIUM, PORCINE 5000 UNITS/1 ML VIAL SQ SCH ×2 (09:06→20:23)
[2019-06-12] MEDS: ASCORBIC ACID 500 MG TABLET GT SCH (09:06)
[2019-06-12] MEDS: MULTIVIT W/MINERALS 1 TAB TABLET PO SCH (09:06)
[2019-06-12] MEDS: INSULIN GLARGINE, 100 UNIT/ML CARTRIDGE SQ SCH (09:26)
[2019-06-12] MEDS: LEVETIRACETAM (500MG) 1,000 MG in IV NS 0.9% 100 ML IV SCH ×2 (09:49→20:13)
[2019-06-12] MEDS ORDERED: TPN BAG #8 IV PRN ×7 (09:57)
[2019-06-12] MEDS ORDERED: TPN BAG #9 IV PRN ×5 (10:00)
[2019-06-12 12:00] VITALS: BP_SYST 156; BP_SYST 98; BP_DIAS 58; BP_DIAS 59
[2019-06-12] MEDS ORDERED: FAT EMULSION 20% 500 ML in PREMIX 1 EA IV SCH (14:00)
[2019-06-12 16:00] VITALS: BP 123/73
--- NOTE | 2019-06-12 18:30 | NUR ---
CORNELIA RN CLOSING NOTE PT OBTUNDED, RESPONSIVE TO PAIN AND TOUCH, ON VENT, TOLERATING SETTINGS WELL, NO SIGNS OF RESPIRATORY DISTRESS NOTED. MULLEN CATHETER INTACT, PATENT, DRAINING CLEAR YELLOW URINE, TOTAL OUTPUT THROUGHOUT AM SHIFT 550CC. G-TUBE ON LOW INTERMITTENT SUCTION, 500CC TOTAL OUTPUT, DARK GREEN COLOR. RIGHT UPPER ARM PICC LINE INTACT, PATENT, SECURED WITH CLEAN DRESSING. TPN BAG #8 INFUSING AT 60.35 CC/HR, LIPIDS INFUSING AT 21CC/HR. ON TELE MONITOR SINUS RHYTHM HR 90. PROVIDED SAFETY AND COMFORT TO PT THROUGHOUT SHIFT. HELD ALL GT MEDS. TURNED AND REPOSITIONED EVERY 2 HOURS, WOUND CARE PROVIDED. BED IN LOW POSITION, LOCKED, CALL LIGHT WITHIN REACH. CONTACT ISOLATIONS IN PLACE. FAMILY BY BEDSIDE. WILL ENDORSE TO NOC SHIFT NURSE.
--- NOTE | 2019-06-12 19:10 | NUR ---
CORNELIA RN OPENING NOTE RECEIVED PATIENT IN BED WITH HOB ELEVATED. OBTUNDED. ON VENT. ON TPN RUNNING AT 60 CC/HR. ON LIPIDS RUNNING 21 CC/HR. GTF ON LOW SUCTION. IN NO APPARENT DISTRESS NOTED AT THIS TIME. BED IS LOWERED AND LOCKED FOR SAFETY. CALL LIGHT IS WITHIN EASY REACH. WILL CONTINUE TO MONITOR.
[2019-06-12 20:00] VITALS: BP 143/71
[2019-06-12] MEDS: SENNOSIDES 8.6 MG TABLET GT SCH (21:34)
--- NOTE | 2019-06-12 21:35 | NUR ---
RN NOTE SENOKOT 17.2 MG AND LOPRESSOR 100 MG MEDS HELD. NO MEDS GIVEN VIA GT DUE TO GT ON LOW SUCTION.
[2019-06-13] VITALS: BP 146/73
[2019-06-13 04:00] VITALS: BP 130/83
[2019-06-13] MEDS: BLOOD SUGAR DIAGNOSTIC 1 EACH STRIP IN SCH ×3 (05:24→17:18)
[2019-06-13] MEDS: LABETALOL HCL IV 100MG VIAL IV SCH ×3 (05:24→20:39)
[2019-06-13] MEDS: INSULIN REGULAR, HUMAN 100 UNIT/ML 3 ML VIAL SQ PRN ×3 (05:27→17:23)
[2019-06-13 06:27] LABS: BASOPHILS # (AUTO) 0.1 /CMM (0.0-0.2); BASOPHILS % (AUTO) 1.2 % (0.0-2.0); HEMATOCRIT 28 % (39-51); HEMOGLOBIN 9.8 g/dL (13.5-17.5); LYMPHOCYTES # (AUTO) 1.9 /CMM (0.8-4.8); LYMPHOCYTES % (AUTO) 19.3 % (20.0-44.0); MEAN CORPUSCULAR HGB CONC 36 g/dl (31.0-36.0); MEAN CORPUSCULAR VOLUME 91 fL (80-96); MONOCYTES # (AUTO) 0.8 /CMM (0.1-1.30); MONOCYTES % (AUTO) 8.1 % (2.0-12.0); NEUTROPHILS # (AUTO) 6.5 /CMM (1.8-8.9); NEUTROPHILS % (AUTO) 65.4 % (43.0-81.0); PLATELET COUNT (AUTO) 329 /CMM (150-450); RED BLOOD CELL COUNT(AUTO) 3.04 MIL/uL (4.5-6.0)
[2019-06-13 06:31] LABS: CALCIUM, SERUM 8.2 mg/dL (8.5-10.1); CREATININE 1.5 mg/dL (0.6-1.3); PHOSPHORUS 2.7 mg/dL (2.5-4.9); POTASSIUM 3.3 mmol/L (3.5-5.1)
--- NOTE | 2019-06-13 06:42 | NUR ---
CORNELIA RN CLOSING NOTE PATIENT IS IN BED RESTING WITH HOB ELEVATED. OBTUNDED. ON VENT. IN NO APPARENT DISTRESS NOTED AT THIS TIME. PATIENT IS NPO. PATIENT ON GT LOW SUCTION AND TOLERATED WELL. ON TPN AND LIPIDS IV AND TOLERATED WELL. BED IS LOWERED AND LOCKED FOR SAFETY. PATIENT IS KEPT CLEAN, DRY, AND COMFORTABLE. WILL ENDORSE TO NEXT SHIFT RN FOR CONTINUATION OF CARE.
--- NOTE | 2019-06-13 07:37 | NUR ---
CORNELIA RN OPENING NOTE RECEIVED REPORT FROM [facility] SHIFT NURSE, PT OBTUNDED, RESPONSIVE TO PAIN AND TOUCH, ON VENT, TOLERATING SETTINGS WELL, NO SIGNS OF RESPIRATORY DISTRESS NOTED. MULLEN CATHETER INTACT, PATENT, DRAINING CLEAR YELLOW URINE. G-TUBE ON LOW INTERMITTENT SUCTION. RIGHT UPPER ARM PICC LINE INTACT, PATENT, SECURED WITH CLEAN DRESSING. LIPIDS INFUSING AT 21CC/HR. ON TELE MONITOR SINUS TACH HR 110. BED IN LOW POSITION, LOCKED, CALL LIGHT WITHIN REACH. CONTACT ISOLATIONS IN PLACE.
[2019-06-13] MEDS: IPRATROPIUM NEB FS 0.5 MG/2.5 ML AMPUL.NEB NEB SCH ×3 (07:43→20:16)
[2019-06-13 08:00] VITALS: BP 134/84
[2019-06-13] MEDS: PROSOURCE / PROSTAT (PYXIS) 30 ML UDC GT SCH ×2 (08:16→16:21)
[2019-06-13] MEDS: DOCUSATE SODIUM LIQ 100 MG/10 ML UDC GT SCH (08:16)
[2019-06-13] MEDS: METOPROLOL TARTRATE 50 MG TABLET PO SCH ×2 (08:17→21:00)
[2019-06-13] MEDS: MULTIVIT W/MINERALS 1 TAB TABLET PO SCH (08:17)
[2019-06-13] MEDS: FAMOTIDINE (20 MG) 20 MG TABLET PEG SCH ×2 (08:17→16:21)
[2019-06-13] MEDS: ASCORBIC ACID 500 MG TABLET GT SCH (08:17)
[2019-06-13] MEDS: LEVETIRACETAM (500MG) 1,000 MG in IV NS 0.9% 100 ML IV SCH ×2 (08:41→20:38)
[2019-06-13] MEDS ORDERED: TPN BAG #10 IV PRN ×7 (09:00)
[2019-06-13] MEDS: HEPARIN SODIUM, PORCINE 5000 UNITS/1 ML VIAL SQ SCH ×2 (09:03→21:01)
[2019-06-13] MEDS: INSULIN GLARGINE, 100 UNIT/ML CARTRIDGE SQ SCH (09:15)
--- NOTE | 2019-06-13 11:09 | NUR ---
RT NOTE RECEIVED PT MECHANICALLY VENTILATED VIA CUFFED TRACHEOSTOMY TUBE. CUFF INFLATED. TRACH TUBE MIDLINE AND SECURE. VENTILATOR SETTINGS PRESCRIBED. ALARMS SET PER PROTOCOL AND AUDIBLE. VENT PLUGGED IN TO RED OUTLET. AMBU BAG AT BED SIDE. NO DISTRESS NOTED. Addendum: 06/13/19 at 1111 by MAYA WESTBROOK RT Amended: Links added.
[2019-06-13 12:00] VITALS: BP 120/82
[2019-06-13] MEDS ORDERED: BISACODYL SUPP (10 MG) 10 MG/SUPP.RECT SUPP.RECT RC PRN ×2 (14:30)
--- NOTE | 2019-06-13 15:00 | NUR ---
REMOVED MULLEN CATHETER. USING STERILE TECHNIQUE INSERTED NEW MULLEN CATHETER. INTACT, PATENT, URINE DRAINING.
[2019-06-13 16:00] VITALS: BP 150/80
--- NOTE | 2019-06-13 18:43 | NUR ---
CORNELIA RN CLOSING NOTE PT OBTUNDED, RESPONSIVE TO PAIN AND TOUCH, ON VENT, TOLERATING SETTINGS WELL, NO SIGNS OF RESPIRATORY DISTRESS NOTED. MULLEN CATHETER INTACT, PATENT, DRAINING CLEAR YELLOW URINE, TOTAL OUTPUT FOR AM SHIFT 650CC. G-TUBE ON LOW INTERMITTENT SUCTION, TOTAL OUTPUT FOR AM SHIFT 250CC. RIGHT UPPER ARM PICC LINE INTACT, PATENT, SECURED WITH CLEAN DRESSING, TPN BAG #9 INFUSING AT 60CC/HR. ON TELE MONITOR SINUS TACH HR 104. BED IN LOW POSITION, LOCKED, CALL LIGHT WITHIN REACH. CONTACT ISOLATIONS IN PLACE. BY BEDSIDE. PROVIDED SAFETY AND COMFORT TO PT THROUGHOUT SHIFT, ALL DUE MEDS GIVEN, HELD GT MEDS, TURNED AND REPOSITIONED EVERY 2 HOURS THROUGHOUT SHIFT. WILL ENDORSE TO NOC SHIFT NURSE.
--- NOTE | 2019-06-13 19:20 | NUR ---
CORNELIA RN OPENING NOTE RECEIVED PATIENT IN BED RESTING WITH HOB ELEVATED. OBTUNDED. ON VENT. ON GT LOW SUCTION. ON TPN IV. IN NO APPARENT DISTRESS NOTED AT THIS TIME. WILL CONTINUE TO MONITOR.
[2019-06-13 20:00] VITALS: BP 168/84
--- NOTE | 2019-06-13 20:26 | NUR ---
PT RCVD TRACH'D ON MECHANICAL VENT WITH CHARTED SETTINGS. PT TAY TX WELL. SX DONE. PT TRACH IS PATENT AND SECURE. VENT ALARMS APPEAR TO BE FUNCTIONING PROPERLY. VENT PLUGGED INTO RED OUTLET. AMBU BAG AT BEDSIDE. NO SOB NOTED. Addendum: 06/13/19 at 2027 by DARON BURCH RT Amended: Links added.
--- NOTE | 2019-06-13 21:30 | NUR ---
RN NOTE LOPRESSOR AND SENOKOT MED NOT ADMINISTERED VIA GT. GT ON LOW SUCTION.
[2019-06-13] MEDS: SENNOSIDES 8.6 MG TABLET GT SCH (22:00)
--- NOTE | 2019-06-13 23:20 | NUR ---
RN NOTE PATIENT STABLE AT THIS TIME. IN NO APPARENT DISTRESS NOTED. ENDORSED PATIENT TO HEMA ROGERS FOR CORA.
--- NOTE | 2019-06-13 23:43 | NUR ---
PALLIATIVE CARE PHYSICIAN NOTES RECEIVED REPORT FROM HEMA POWER ( ORIENTEE WITH HEMA GÓMEZ ). PATIENT IS CALM RESTING COMFORTABLY. ISOLATION PRECAUTION MAINTAINED, SAFETY PRECAUTION IN PLACED, BED IN LOW LCKED POSITION, TRACH AT MIDLINE SECURED AND INTACT, VENT SETTINGS TOLERATING WELL, SATING 100%, NO SIGNS OF ACUTE RESPIRATORY DISTRESS NOTED, PICC LINE ON HIS RIGHT UPPER ARM INTACT AND PATENT, TPN INFUSING WELL, MULLEN CATHETER INTACT DRAINING TO A TEA COLORED URINE OUTPUT NO SEDIMENT NOTED. ALL NEEDS ATTENDED, WILL CONTINUE TO MONITOR ACCORDINGLY.
[2019-06-14] VITALS (7 sets, daily range): BP systolic 129–168; BP diastolic 68–91
[2019-06-14] MEDS: BLOOD SUGAR DIAGNOSTIC 1 EACH STRIP IN SCH ×4 (00:19→17:06)
[2019-06-14] MEDS: LABETALOL HCL IV 100MG VIAL IV SCH ×3 (05:10→22:15)
[2019-06-14 06:51] LABS: CREATININE 1.4 mg/dL (0.6-1.3); MAGNESIUM 2.3 mg/dL (1.8-2.4); PHOSPHORUS 3.3 mg/dL (2.5-4.9); POTASSIUM 3.4 mmol/L (3.5-5.1)
[2019-06-14 06:56] LABS: BASOPHILS # (AUTO) 0.1 /CMM (0.0-0.2); BASOPHILS % (AUTO) 0.8 % (0.0-2.0); EOSINOPHILS % (AUTO) 4.6 % (0.0-6.0); HEMATOCRIT 31 % (39-51); HEMOGLOBIN 9.8 g/dL (13.5-17.5); LYMPHOCYTES # (AUTO) 1.7 /CMM (0.8-4.8); LYMPHOCYTES % (AUTO) 17.4 % (20.0-44.0); MEAN CORPUSCULAR HGB CONC 32 g/dl (31.0-36.0); MEAN CORPUSCULAR VOLUME 91 fL (80-96); MONOCYTES # (AUTO) 0.9 /CMM (0.1-1.30); MONOCYTES % (AUTO) 9.1 % (2.0-12.0); NEUTROPHILS # (AUTO) 6.6 /CMM (1.8-8.9); NEUTROPHILS % (AUTO) 68.1 % (43.0-81.0); PLATELET COUNT (AUTO) 288 /CMM (150-450); RED BLOOD CELL COUNT(AUTO) 3.35 MIL/uL (4.5-6.0); WHITE BLOOD COUNT (AUTO) 9.7 K/uL (4.3-11.0)
[2019-06-14] MEDS: INSULIN REGULAR, HUMAN 100 UNIT/ML 3 ML VIAL SQ PRN ×2 (07:21→11:32)
--- NOTE | 2019-06-14 07:25 | NUR ---
rn notes all needs attended and met, safety measures inplaced, no change of condition, endorsed to am nurse for continuity of care.
--- NOTE | 2019-06-14 07:25 | NUR ---
TELE/RN OPENING NOTES RECEIVED PATIENT IN BED RESTING COMFORTABLY. NO FACIAL GRIMACING OR ACUTE DISTRESS AT THIS TIME. RESPIRATION EVEN AND UNLABORED. SKIN IS DRY WARM TO TOUCH. PATIENT ABLE TO TOLERATE CURRENT VENT SETTING WELL. TRACH AT MIDLINE SECURED AND INTACT. ISOLATION PRECAUTION MAINTAINED. PATIENT NOTED WITH PICC LINE ON HIS RIGHT UPPER ARM INTACT AND PATENT, TPN INFUSING WELL, MULLEN CATHETER INTACT DRAINING WELL. ALL NEEDS ANTICIPATED. CALL LIGHT WITHIN REACHED. BED LOCKED AND IN LOWEST POSITION. SAFETY MAINTAINED. WILL CONTINUE TO MONITOR CLOSELY.
[2019-06-14] MEDS: IPRATROPIUM NEB FS 0.5 MG/2.5 ML AMPUL.NEB NEB SCH ×3 (07:54→19:30)
[2019-06-14] MEDS: DOCUSATE SODIUM LIQ 100 MG/10 ML UDC GT SCH ×2 (08:23→08:50)
[2019-06-14] MEDS: MULTIVIT W/MINERALS 1 TAB TABLET PO SCH ×2 (08:24→08:51)
[2019-06-14] MEDS: ASCORBIC ACID 500 MG TABLET GT SCH ×2 (08:24→08:51)
[2019-06-14] MEDS: METOPROLOL TARTRATE 50 MG TABLET PO SCH ×3 (08:24→22:14)
[2019-06-14] MEDS: FAMOTIDINE (20 MG) 20 MG TABLET PEG SCH ×3 (08:24→16:52)
[2019-06-14] MEDS: PROSOURCE / PROSTAT (PYXIS) 30 ML UDC GT SCH ×3 (08:24→16:52)
[2019-06-14] MEDS: HEPARIN SODIUM, PORCINE 5000 UNITS/1 ML VIAL SQ SCH ×2 (08:31→22:16)
[2019-06-14] MEDS: INSULIN GLARGINE, 100 UNIT/ML CARTRIDGE SQ SCH (08:33)
[2019-06-14] MEDS: LEVETIRACETAM (500MG) 1,000 MG in IV NS 0.9% 100 ML IV SCH ×2 (09:21→22:13)
[2019-06-14] MEDS ORDERED: TPN BAG #12 IV PRN ×7 (09:30)
[2019-06-14] MEDS ORDERED: TPN BAG #11 IV PRN ×5 (09:30)
--- NOTE | 2019-06-14 12:26 | NUR ---
TELE/RN NOTES PER DR. GRULLON, START GT FEEDING OF GLUCERNA 1.2 @40CC/HR WHEN RECEIVED. D/C GT INTERMITTENT SUCTIONING. PATIENT CONTINUES TO REMAIN IN STABLE CONDITION. WILL CONTINUE TO MONITOR CLOSELY.
--- NOTE | 2019-06-14 14:30 | NUR ---
TELE/RN NOTES TPN WAS TITRATED TO 30ML/HR. PATIENT WAS ABLE TOLERATE WELL. WILL CONTINUE TO MONITOR CLOSELY.
[2019-06-14] MEDS: GLUCERNA 1.2 1,000 ML BOTTLE NG PRN ×2 (14:37→22:55)
--- NOTE | 2019-06-14 17:30 | NUR ---
TELE/RN NOTES GAVE REPORT TO HEMA ZEPEDA IN [facility]. WILL BE SENDING PATIENT AROUND 630PM PER CM. PATIENT CONTINUES TO REMAIN IN STABLE CONDITION. WILL CONTINUE TO MONITOR CLOSELY.
--- NOTE | 2019-06-14 18:57 | NUR ---
TELE/SURVEILLANCE INSPECTOR NOTES 2 EMT AND RT ARRIVED AT THE UNIT FROM [facility]. ALL DISCHARGE PAPERS WAS SIGN AND GIVEN TO EMT. REPORT WAS ALSO GIVEN TO THE EMT AND TO HEMA ZEPEDA IN Addendum: 06/14/19 at 1932 by DEBORAH ASHLEY RN 2 EMT AND RT ARRIVED AT THE UNIT FROM [facility]. ALL DISCHARGE PAPERS WAS SIGN AND GIVEN TO EMT. REPORT WAS ALSO GIVEN TO THE EMT AND TO HEMA ZEPEDA IN [facility]. FINAL SKIN ASSESSMENT WAS DONE AND PHOTOS WAS TAKEN WELL AND WAS PLACED IN THE CHART. PATIENT LEFT THE HOSPITAL IN STABLE CONDITION.
--- NOTE | 2019-06-14 21:00 | NUR ---
RN NOTE: PATIENT ARRIVED BACK TO UNIT VIA GURNEY. UPON REPORT FROM EMT, PATIENT'S BP WAS 163/90 AND HR 120 IN THE SNF. PATIENT WAS TRANSFERRED BACK TO [facility]. PATIENT PLACED ON FIELD MECHANICAL METER TESTER AND CHECKED VITAL SIGNS 134/82, HR 105, TEMP 99.1F, RR 14. SADA FAJARDO MADE AWARE. PER LIVESTOCK BROKER, CONTINUE ALL CURRENT ORDERS. WILL RESUME PATIENT ON GTF. WILL CONT. TO MONITOR FOR CHANGES.
[2019-06-14] MEDS ORDERED: DEXTROSE 50%-WATER 50 ML DISP.SYRIN IV PRN ×2 (21:30→22:00)
[2019-06-14] MEDS ORDERED: Sodium Chloride 154 MEQ in IV 10% DEXTROSE 1,000 ML IV PRN (21:30)
[2019-06-14] MEDS ORDERED: BLOOD SUGAR DIAGNOSTIC 1 EACH STRIP IN SCH (21:30)
[2019-06-14] MEDS ORDERED: INSULIN REGULAR, HUMAN 100 UNIT/ML 3 ML VIAL SQ PRN ×2 (21:30→22:00)
[2019-06-14] MEDS: SENNOSIDES 8.6 MG TABLET GT SCH (22:14)
[2019-06-15] VITALS: BP 119/75
[2019-06-15] MEDS: BLOOD SUGAR DIAGNOSTIC 1 EACH STRIP IN SCH ×2 (00:46→05:28)
[2019-06-15 04:00] VITALS: BP 149/75
[2019-06-15] MEDS: LABETALOL HCL IV 100MG VIAL IV SCH (05:29)
--- NOTE | 2019-06-15 06:23 | NUR ---
RT PT RECEIVED ON [facility] VENT WITH NOTED SETTING. PT TOLERATING SETTING WELL. NO SOB OR DISTRESS NOTED ON SHIFT. CONTINUE CURRENT CARE PLAN AND MONITOR FOR ANY CHANGES. Addendum: 06/15/19 at 0623 by TETE THAYER RT Amended: Links added.
--- NOTE | 2019-06-15 07:10 | NUR ---
RN CLOSING NOTES: PATIENT ON VENT TRACH, TOLERATING WELL. NO RESPIRATORY DISTRESS. NO S/S OF PAIN. PATIENT IN STABLE CONDITION THROUGHOUT THE SHIFT. ENDORSED TO AM SHIFT NURSE FOR CONTINUITY OF CARE.
[2019-06-15] MEDS: IPRATROPIUM NEB FS 0.5 MG/2.5 ML AMPUL.NEB NEB SCH (07:43)
[2019-06-15 07:47] LABS: BASOPHILS # (AUTO) 0.1 /CMM (0.0-0.2); BASOPHILS % (AUTO) 0.8 % (0.0-2.0); EOSINOPHILS % (AUTO) 5.1 % (0.0-6.0); HEMATOCRIT 26 % (39-51); HEMOGLOBIN 8.6 g/dL (13.5-17.5); LYMPHOCYTES # (AUTO) 1.6 /CMM (0.8-4.8); LYMPHOCYTES % (AUTO) 16.7 % (20.0-44.0); MEAN CORPUSCULAR HGB CONC 33 g/dl (31.0-36.0); MEAN CORPUSCULAR VOLUME 90 fL (80-96); MONOCYTES % (AUTO) 9.8 % (2.0-12.0); NEUTROPHILS # (AUTO) 6.6 /CMM (1.8-8.9); NEUTROPHILS % (AUTO) 67.6 % (43.0-81.0); PLATELET COUNT (AUTO) 281 /CMM (150-450); RED BLOOD CELL COUNT(AUTO) 2.91 MIL/uL (4.5-6.0); WHITE BLOOD COUNT (AUTO) 9.8 K/uL (4.3-11.0)
--- NOTE | 2019-06-15 07:51 | NUR ---
RN OPENING NOTES RECEIVED PATIENT RESTING IN BED COMFORTABLY, SHOWS NO S/SX OF RESP DISTRESS OR PAIN. HE IS OBTUNDED, NON-VERBAL, AND BEDBOUND. HE IS ON MECH VENT VIA PORTEX 7 TRACH, TOLERATING SETTINGS WELL. TELE MONITOR SHOWING SR. MULLEN CATH IS PATENT AND INTACT, DRAINING CLEAR AND YELLOW URINE BY GRAVITY. GTUBE IS PATENT AND INTACT, INFUSING GLUCERNA AT 40ML/HR, TOLERATING WELL, NO RESIDUAL NOTED. BLANCA PICC IS PATENT AND INTACT. PT HAS A WOUND ON ABDOMEN FROM PREVIOUS GTUBE, WILL PROVIDED WOUND CARE ORDERED. SAFETY MEASURES HAVE BEEN IMPLEMENTED, CALL LIGHT IS WITHIN REACH, BED IS IN LOWEST AND LOCKED POSITION, SIDE RAILS UP X2, WILL CONTINUE TO MONITOR FOR ANY CHANGES.
[2019-06-15 08:00] VITALS: BP 147/78
[2019-06-15 08:06] LABS: CALCIUM, SERUM 8.6 mg/dL (8.5-10.1); CREATININE 1.3 mg/dL (0.6-1.3); MAGNESIUM 1.9 mg/dL (1.8-2.4); PHOSPHORUS 3.3 mg/dL (2.5-4.9); POTASSIUM 3.3 mmol/L (3.5-5.1)
[2019-06-15] MEDS: PROSOURCE / PROSTAT (PYXIS) 30 ML UDC GT SCH (08:34)
[2019-06-15] MEDS: DOCUSATE SODIUM LIQ 100 MG/10 ML UDC GT SCH (08:35)
[2019-06-15] MEDS: FAMOTIDINE (20 MG) 20 MG TABLET PEG SCH (08:35)
[2019-06-15] MEDS: MULTIVIT W/MINERALS 1 TAB TABLET PO SCH (08:35)
[2019-06-15] MEDS: ASCORBIC ACID 500 MG TABLET GT SCH (08:35)
[2019-06-15 08:36] VITALS: BP 146/76
[2019-06-15] MEDS: METOPROLOL TARTRATE 50 MG TABLET PO SCH (08:36)
[2019-06-15] MEDS: HEPARIN SODIUM, PORCINE 5000 UNITS/1 ML VIAL SQ SCH (08:38)
[2019-06-15] MEDS ORDERED: LEVETIRACETAM SOL (5 ML) 100 MG/ML UDC GT SCH (09:00)
[2019-06-15] MEDS ORDERED: INSULIN REGULAR, HUMAN 100 UNIT/ML 3 ML VIAL SQ PRN (09:30)
[2019-06-15] MEDS ORDERED: *INSULIN REGULAR(HUMULIN R)HUM 100 UNIT/ML VIAL SQ PRN (09:30)
[2019-06-15] MEDS ORDERED: DEXTROSE 50%-WATER 50 ML DISP.SYRIN IV PRN (09:30)
[2019-06-15] MEDS ORDERED: POTASSIUM CHLORIDE 20 MEQ POWDER PACKET GT SCH (11:30)
[2019-06-15] MEDS ORDERED: BLOOD SUGAR DIAGNOSTIC 1 EACH STRIP VI SCH (12:00)
--- NOTE | 2019-06-15 14:08 | NUR ---
RN NOTES PATIENT HAS BEEN DISCHARGED FROM [facility] IN STABLE CONDITION. VITAL SIGNS WERE WITHIN NORMAL LIMITS UPON TIME OF DC. TRANSFER REPORT WAS GIVEN TO JUS GARRIDO AT [facility]. PT WAS TRANSFERRED WITH EMT AND RT. PT FAMILY HAS BEEN NOTIFIED OF THE DISCHARGE
[2019-07-23] MEDS ORDERED: VANC1PLA9 IV (10:39)
[2019-07-23] MEDS ORDERED: MERO1VIA23 IV (10:39)
== END 2019-06-15 13:30 | DRG 353 ==
LOC: ER 21:16 → TELE 06-06 02:13 → ICU 06-10 10:55 → TELE-TD 06-11 20:10 → TELE1 06-13 14:37
PROVIDERS: ADMIT Nurse Practitioner Acute Care; ATTEND Internal Medicine
PROC: 5A1955Z Respiratory Ventilation, Greater than 96 Consecutive Hours (ICD-10-PCS; principal; 2019-06-06)
PROC: 02HV33Z Insertion of Infusion Device into Superior Vena Cava, Percutaneous Approach (ICD-10-PCS; 2019-06-06)
PROC: B548ZZA Ultrasonography of Superior Vena Cava, Guidance (ICD-10-PCS; 2019-06-06)
PROC: 0WQF0ZZ Repair Abdominal Wall, Open Approach (ICD-10-PCS; 2019-06-09)
DX: K94.22 Gastrostomy infection (principal); R53.2 Functional quadriplegia; N17.0 Acute kidney failure with tubular necrosis; L03.311 Cellulitis of abdominal wall; N39.0 Urinary tract infection, site not specified; D68.59 Other primary thrombophilia; E87.1 Hypo-osmolality and hyponatremia; J90 Pleural effusion, not elsewhere classified; J96.11 Chronic respiratory failure with hypoxia; K31.6 Fistula of stomach and duodenum; Z99.11 Dependence on respirator [ventilator] status; M48.55XA Collapsed vertebra, not elsewhere classified, thoracolumbar region, initial encounter for fracture; J98.11 Atelectasis; I31.3 Pericardial effusion (noninflammatory); K56.7 Ileus, unspecified; G93.49 Other encephalopathy; E87.0 Hyperosmolality and hypernatremia; E78.5 Hyperlipidemia, unspecified; E11.9 Type 2 diabetes mellitus without complications; D64.9 Anemia, unspecified; Y83.3 Surgical operation with formation of external stoma as the cause of abnormal reaction of the patient, or of later complication, without mention of misadventure at the time of the procedure; Y82.9 Unspecified medical devices associated with adverse incidents; Y92.129 Unspecified place in nursing home as the place of occurrence of the external cause; E11.22 Type 2 diabetes mellitus with diabetic chronic kidney disease; R13.10 Dysphagia, unspecified; Z87.01 Personal history of pneumonia (recurrent); Z86.73 Personal history of transient ischemic attack (TIA), and cerebral infarction without residual deficits; Z79.4 Long term (current) use of insulin; M62.462 Contracture of muscle, left lower leg; M62.461 Contracture of muscle, right lower leg; M62.422 Contracture of muscle, left upper arm; M62.421 Contracture of muscle, right upper arm; N18.9 Chronic kidney disease, unspecified; M19.90 Unspecified osteoarthritis, unspecified site; L30.4 Erythema intertrigo; I70.0 Atherosclerosis of aorta; N40.0 Benign prostatic hyperplasia without lower urinary tract symptoms; I12.9 Hypertensive chronic kidney disease with stage 1 through stage 4 chronic kidney disease, or unspecified chronic kidney disease; G40.909 Epilepsy, unspecified, not intractable, without status epilepticus; F09 Unspecified mental disorder due to known physiological condition; Z79.84 Long term (current) use of oral hypoglycemic drugs; I25.10 Atherosclerotic heart disease of native coronary artery without angina pectoris; Z74.01 Bed confinement status; E87.6 Hypokalemia; D73.4 Cyst of spleen; Z79.899 Other long term (current) drug therapy; D63.8 Anemia in other chronic diseases classified elsewhere
CPT/HCPCS: 31720; 36415; 36569; 36600; 71045-TC; 74018; 80048-TC; 80053-TC; 80061-TC; 80076-TC; 80202-TC; 81000-TC; 82803-TC; 82947-TC; 82962-TC; 83605-TC; 83690-TC; 83735-TC; 84100-TC; 84478-TC; 85025-TC; 85730-TC; 87040-TC; 87070-TC; 87081-TC; 87086-TC; 87186-TC; 93970-TC; 94002-TC; 94003-TC; 94760-TC; 94762-TC; 94799-TC; 99082-TC; A4216; A4217; A4623; A6253; A6403; C1751; G0378; J0360; J1644; J1815; J1953; J2270; J2405; J2543; J3370; J3475; J3480; J3490; J7030; J7050; J7060; Q9963; Q9967

== ENCOUNTER 2019-06-24 17:24 | Inpatient (IN) | payer MEDICARE, MEDICAID ==
[~2019-06-24] VITALS: Ht 162.6 cm; Wt 61.2 kg
[~2019-06-24 17:24] MED LIST changes: -CEFE1PIG3 IV; +IPRA12.9 IH; -IPRA3AMP23 IH; -NUT.237L30 GT
[2019-06-24] MEDS ORDERED: ACET-2605 GT (17:54)
[2019-06-24] MEDS ORDERED: AMIN30LI2 GT (17:54)
[2019-06-24] MEDS ORDERED: IPRA0.2S9 IH ×2 (17:54)
[2019-06-24] MEDS ORDERED: INSU100V11 SQ (17:54)
[2019-06-24] MEDS ORDERED: CHLO473M5 MM (17:54)
[2019-06-24] MEDS ORDERED: NA P133E RC (17:54)
[2019-06-24] MEDS ORDERED: LACT-96 GT (17:54)
[2019-06-24] MEDS ORDERED: INSU100V7 SQ (17:54)
--- NOTE | 2019-06-24 18:00 | NUR ---
[facility] "Bleeding gt site". On vent and trach, connected to the monitor and pulse ox, kept comfortable, will continue to monitor accordingly.
[2019-06-24 18:37] LABS: BASOPHILS # (AUTO) 0.1 /CMM (0.0-0.2); BASOPHILS % (AUTO) 1.1 % (0.0-2.0); EOSINOPHILS % (AUTO) 4.3 % (0.0-6.0); HEMATOCRIT 27 % (39-51); HEMOGLOBIN 8.6 g/dL (13.5-17.5); LYMPHOCYTES # (AUTO) 2.1 /CMM (0.8-4.8); LYMPHOCYTES % (AUTO) 17.1 % (20.0-44.0); MEAN CORPUSCULAR HGB CONC 32 g/dl (31.0-36.0); MEAN CORPUSCULAR VOLUME 90 fL (80-96); MONOCYTES # (AUTO) 1.2 /CMM (0.1-1.30); MONOCYTES % (AUTO) 9.9 % (2.0-12.0); NEUTROPHILS # (AUTO) 8.5 /CMM (1.8-8.9); NEUTROPHILS % (AUTO) 67.6 % (43.0-81.0); PLATELET COUNT (AUTO) 675 /CMM (150-450); RED BLOOD CELL COUNT(AUTO) 3.01 MIL/uL (4.5-6.0); WHITE BLOOD COUNT (AUTO) 12.5 K/uL (4.3-11.0)
[2019-06-24 18:48] LABS: CALCIUM, SERUM 8.9 mg/dL (8.5-10.1); POTASSIUM 4.6 mmol/L (3.5-5.1)
--- NOTE | 2019-06-24 18:48 | NUR ---
dressing changed on the GT site.
--- NOTE | 2019-06-24 19:14 | NUR ---
CALLED [facility], PAGED SANNA RICKETTS
--- NOTE | 2019-06-24 19:25 | NUR ---
RETURNED FROM CT.
--- NOTE | 2019-06-24 19:35 | NUR ---
PT IS TRACH WITH A VENT. VENT SETTINGS FOLLOWS: AC18, TV550, FIO2 40%, PEEP 5
--- NOTE | 2019-06-24 19:36 | NUR ---
PT IS ST ON THE MONITOR W/HR 113
[2019-06-24] MEDS ORDERED: IV NS 0.9% 500 ML BAG IV ONE (20:00)
--- NOTE | 2019-06-24 20:23 | NUR ---
CALLING REPORT TO MILKING MACHINE MECHANIC.
--- NOTE | 2019-06-24 20:23 | NUR ---
FISHING LURE ASSEMBLER TO CALL BACK IN 5 MINS.
[2019-06-24] MEDS ORDERED: Z GUARD REMEDY 2 OZ OINT TP PRN (20:30)
[2019-06-24] MEDS ORDERED: BISACODYL SUPP (10 MG) 10 MG/SUPP.RECT SUPP.RECT RC PRN (20:30)
[2019-06-24] MEDS ORDERED: DEXTROSE 50%-WATER 50 ML DISP.SYRIN IV PRN ×2 (20:30)
[2019-06-24] MEDS ORDERED: MISCELLANEOUS MED 1 EA EA GT PRN (20:30)
[2019-06-24] MEDS ORDERED: METOCLOPRAMIDE HCL 10 MG TABLET GT PRN (20:30)
[2019-06-24] MEDS ORDERED: ONDANSETRON HCL/PF 4 MG/2 ML VIAL IVP PRN (20:30)
[2019-06-24] MEDS ORDERED: IPRATROPIUM NEB FS 0.5 MG/2.5 ML AMPUL.NEB IH PRN (20:30)
[2019-06-24] MEDS ORDERED: MAG HYDROX/AL HYDROX/SIMETH 30 ML UDC PO PRN (20:30)
[2019-06-24] MEDS ORDERED: LORAZEPAM 1 MG TABLET GT PRN (20:30)
[2019-06-24] MEDS ORDERED: INSULIN REGULAR, HUMAN 100 UNIT/ML 3 ML VIAL SQ PRN (20:30)
[2019-06-24] MEDS ORDERED: *INSULIN REGULAR(HUMULIN R)HUM 100 UNIT/ML VIAL SQ PRN (20:30)
[2019-06-24] MEDS ORDERED: MAGNESIUM HYDROXIDE 30 ML UDC PO PRN (20:30)
--- NOTE | 2019-06-24 20:37 | NUR ---
REPORT TO HEMA ARAIZA
--- NOTE | 2019-06-24 20:40 | NUR ---
CALLING RT FOR TRANSPORT.
--- NOTE | 2019-06-24 20:55 | NUR ---
TELE/RN NOTES RECEIVED PT. FROM ER VIA [facility]. PT. IS NON-VERBAL OPENS EYES, VENT/TRACH DEPENDENT. BREATHING EVEN AND UNLABORED. NO SOB, RESPIRATORY DISTRESS OR S/S OF PAIN NOTED AT THIS TIME. PT. WITH RIGHT UPPER ARM TRIPLE LUMEN PICC PRESENT, PATENT AND INTACT. PLACED EXTERNAL COLLAR STARCHER ON PT. CURRENT RHYTHM = SINUS TACHYCARDIA HR 110. PT. WITH G-TUBE PRESENT, PATENT AND INTACT. PT. WITH PRESSURE DRESSING PRESENT AROUND G-TUBE SITE WITH SMALL AMOUNT OF BLOOD NOTED ON DRESSING. PER ER NURSE THE GT SITE WAS BLEEDING A LOT SO A PRESSURE DRESSING WAS PLACED. WILL LEAVE PRESSURE DRESSING IN PLACE FOR NOW AND ENDORSE DAYSHIFT TO FOLLOW UP WITH PICTURE OF GT SITE. BED LOCKED AND IN LOWEST POSITION, SIDE RAILS UP X3, BED ALARM ON, WILL CONTINUE TO MONITOR.
[2019-06-24] MEDS ORDERED: BLOOD SUGAR DIAGNOSTIC 1 EACH STRIP VI SCH (22:00)
[2019-06-24] MEDS: LEVETIRACETAM SOL (5 ML) 100 MG/ML UDC GT SCH (23:02)
[2019-06-24] MEDS: JEVITY 1.2 CAL 1,000 ML BOTTLE GT PRN (23:03)
[2019-06-24] MEDS: INSULIN GLARGINE, 100 UNIT/ML CARTRIDGE SQ SCH (23:26)
[2019-06-24] MEDS: BLOOD SUGAR DIAGNOSTIC 1 EACH STRIP IN SCH (23:27)
[2019-06-24] MEDS: METOPROLOL TARTRATE 50 MG TABLET GT SCH (23:39)
--- NOTE | 2019-06-25 00:38 | NUR ---
RT NOTE Pt rec'd trached on [facility] vent on AC mode. No resp distress or sob noted. Trach is patent and secured. Sx'd for thick large amt of thick pale yellow secretions. Alarms are set and audible. Vent plugged into red outlet. Ambu bag bedside. Will continue to monitor closely. Addendum: 06/25/19 at 0039 by REBA WALKER RT Amended: Links added.
[2019-06-25] MEDS: IPRATROPIUM NEB FS 0.5 MG/2.5 ML AMPUL.NEB IH SCH ×4 (01:21→20:32)
[2019-06-25] MEDS: BLOOD SUGAR DIAGNOSTIC 1 EACH STRIP IN SCH ×3 (06:02→17:09)
[2019-06-25] MEDS: INSULIN REGULAR, HUMAN 100 UNIT/ML 3 ML VIAL SQ PRN ×3 (06:04→17:31)
--- NOTE | 2019-06-25 06:57 | NUR ---
TELE/RN NOTES PT. IS LYING IN BED RESTING. PT. IS NON-VERBAL OPENS EYES, VENT/TRACH DEPENDENT. BREATHING EVEN AND UNLABORED. NO SOB, RESPIRATORY DISTRESS OR S/S OF PAIN NOTED AT THIS TIME AND THROUGHOUT SHIFT. PT. WITH RIGHT UPPER ARM TRIPLE LUMEN PICC PRESENT, PATENT AND INTACT. PT. WITH EXTERNAL STEEPLE JACK PRESENT AND INTACT. CURRENT RHYTHM = SINUS TACHYCARDIA HR 116. PT. WITH G-TUBE PRESENT, PATENT AND INTACT ADMINISTERING TO PT. GT FEEDING JEVITY 1.2 @ 40ML/HR. PT. TOLERATING FEEDING WELL. NO RESIDUAL NOTED AT THIS TIME.. PT. WITH PRESSURE DRESSING PRESENT AROUND G-TUBE SITE WITH SMALL AMOUNT OF BLOOD NOTED ON DRESSING. ALL PT. NEEDS MET. PT. OFFLOADED, TURNED AND REPOSITIONED Q2H AND NEEDED. BED LOCKED AND IN LOWEST POSITION, SIDE RAILS UP X3, BED ALARM ON, WILL ENDORSE TO DAYSHIFT NURSE FOR CONTINUITY OF CARE.
[2019-06-25 08:07] LABS: BASOPHILS # (AUTO) 0.1 /CMM (0.0-0.2); BASOPHILS % (AUTO) 0.9 % (0.0-2.0); EOSINOPHILS % (AUTO) 3.1 % (0.0-6.0); HEMATOCRIT 29 % (39-51); HEMOGLOBIN 9.4 g/dL (13.5-17.5); LYMPHOCYTES # (AUTO) 2.1 /CMM (0.8-4.8); MEAN CORPUSCULAR HGB CONC 32 g/dl (31.0-36.0); MEAN CORPUSCULAR VOLUME 90 fL (80-96); MONOCYTES # (AUTO) 1.1 /CMM (0.1-1.30); MONOCYTES % (AUTO) 10.4 % (2.0-12.0); NEUTROPHILS # (AUTO) 6.7 /CMM (1.8-8.9); NEUTROPHILS % (AUTO) 65.6 % (43.0-81.0); PLATELET COUNT (AUTO) 612 /CMM (150-450); RED BLOOD CELL COUNT(AUTO) 3.24 MIL/uL (4.5-6.0); WHITE BLOOD COUNT (AUTO) 10.3 K/uL (4.3-11.0)
[2019-06-25 08:27] LABS: CALCIUM, SERUM 8.7 mg/dL (8.5-10.1); CREATININE 1.9 mg/dL (0.6-1.3); PHOSPHORUS 3.2 mg/dL (2.5-4.9); POTASSIUM 4.8 mmol/L (3.5-5.1)
--- NOTE | 2019-06-25 08:30 | NUR ---
ms rn received on bed, vent dependent, non verbal patient, g tube feeding on a this time,tolerating well, bilateral arms and legs are contracted, no distress noted, repositioned for comfort.
--- NOTE | 2019-06-25 10:00 | NUR ---
ms turner breakfast served,due meds given,tolerated well via g tube.
[2019-06-25] MEDS: DOCUSATE SODIUM LIQ 100 MG/10 ML UDC GT SCH (10:06)
[2019-06-25] MEDS: CHLORHEXIDINE GLUCONATE 15 ML UDC MM SCH ×2 (10:06→17:09)
[2019-06-25] MEDS: FAMOTIDINE (20 MG) 20 MG TABLET GT SCH ×2 (10:07→17:09)
[2019-06-25] MEDS: LEVETIRACETAM SOL (5 ML) 100 MG/ML UDC GT SCH ×2 (10:07→21:55)
[2019-06-25] MEDS: SODIUM CHLORIDE 1000 MG TABLET GT SCH ×3 (10:07→17:09)
[2019-06-25] MEDS: METOPROLOL TARTRATE 50 MG TABLET GT SCH ×2 (10:08→22:05)
--- NOTE | 2019-06-25 15:00 | NUR ---
ms rn patient just came from procedure, bs - checked w/ coverage given.
--- NOTE | 2019-06-25 20:32 | NUR ---
PT RCVD TRACH PORTEX 7 ON MECH VENT WITH NOTED SETTINGS. PT IS OBTUNDED . BREATHING TX GIVEN PER MD'S ORDER, NO ADVERSE REACTION NOTED. SUCTION DONE PRN, VENT PLUGGED INTO RED OUTLET, VENT ALARMS ON AND AUDIBLE. TRACH IS PATENT AND SECURED. DISPLAY DECORATOR DONE. NO RESPIRATORY DISTRESS NOTED AT THIS TIME. WILL CONTINUE TO MONITOR THE PT T/O SHIFT.
[2019-06-26] MEDS: BLOOD SUGAR DIAGNOSTIC 1 EACH STRIP IN SCH ×4 (00:46→17:20)
[2019-06-26] MEDS: INSULIN REGULAR, HUMAN 100 UNIT/ML 3 ML VIAL SQ PRN ×2 (00:52→07:20)
[2019-06-26] MEDS: INSULIN GLARGINE, 100 UNIT/ML CARTRIDGE SQ SCH ×2 (00:53→21:49)
[2019-06-26] MEDS: IPRATROPIUM NEB FS 0.5 MG/2.5 ML AMPUL.NEB IH SCH ×4 (01:32→19:34)
[2019-06-26 04:52] LABS: APPEARANCE,URINE SL CLOUDY (CLEAR); BILIRUBIN,URINE NEGATIVE (NEGATIVE); BLOOD, URINE TRACE-INTA Ery/uL (NEGATIVE); COLOR,URINE YELLOW (YELLOW); KETONES,URINE NEGATIVE (NEGATIVE); LEUKOCYTE ESTERASE ,URINE SMALL (NEGATIVE); NITRITE, URINE POSITIVE (NEGATIVE); PH,URINE 6.5 (5.0-8.0); PROTEIN,URINE 100 mg/dl (NEGATIVE); UGLUCOSE NEGATIVE (NEGATIVE); UROBILINOGEN,URINE 0.2 EU/dL (0.2)
[2019-06-26 05:01] LABS: CREATININE, URINE 88.5 MG/DL (30.0-125.0); URINE TOTAL PROTEIN 225.6 mg/dL (0-11.9)
[2019-06-26 05:07] LABS: BACTERIA,URINE Few /HPF (None Seen); SQUAMOUS EPITHELIAL CELL,UR Rare /HPF (None Seen); WBC,URINE TOO NUMEROUS TO COUN /HPF (0-3); YEAST,URINE Few /HPF (None Seen)
[2019-06-26 05:35] LABS: EOSINOPHIL,URINE Rare
--- NOTE | 2019-06-26 06:41 | NUR ---
WOUND CARE CONSULT WOUND CARE RECEIVED CONSULT FOR EVALUATION. WOUND CARE WILL DEFER CONSULT AND ALL TREATMENT PLANS TO PLASTIC SURGICAL TEAM WHO ARE CURRENTLY FOLLOWING THIS PATIENT. PATIENT WITH ISAC AT 12, ALL PRESSURE ULCER PREVENTION MEASURES ARE NOTED TO BE IN PLACE. ISOFLEX SPECIALTY SARA BED IS ON ORDER AND WILL BE PLACED WHEN AVAILABLE. ALL DISCUSSED WITH NURSING STAFF. WILL SEE PRN.
[2019-06-26 06:43] LABS: BASOPHILS # (AUTO) 0.1 /CMM (0.0-0.2); BASOPHILS % (AUTO) 0.8 % (0.0-2.0); EOSINOPHILS % (AUTO) 2.6 % (0.0-6.0); HEMATOCRIT 24 % (39-51); LYMPHOCYTES # (AUTO) 1.9 /CMM (0.8-4.8); LYMPHOCYTES % (AUTO) 18.3 % (20.0-44.0); MEAN CORPUSCULAR HGB CONC 33 g/dl (31.0-36.0); MEAN CORPUSCULAR VOLUME 89 fL (80-96); MONOCYTES # (AUTO) 1.1 /CMM (0.1-1.30); MONOCYTES % (AUTO) 10.6 % (2.0-12.0); NEUTROPHILS # (AUTO) 7.1 /CMM (1.8-8.9); NEUTROPHILS % (AUTO) 67.7 % (43.0-81.0); PLATELET COUNT (AUTO) 520 /CMM (150-450); RED BLOOD CELL COUNT(AUTO) 2.72 MIL/uL (4.5-6.0); WHITE BLOOD COUNT (AUTO) 10.4 K/uL (4.3-11.0)
--- NOTE | 2019-06-26 07:00 | NUR ---
CAR AND YARD SUPERVISOR NOTES PATIENT IS ON VENT WITH SETTING PRESCRIBED BY DOCTOR. PATIENT IS OBTUNDED BUT PATIENT OPENES EYES . PATIENT IS ON TELE MONITOR ST. 110'S . PATIENT HAS MULLEN INTACT AND PATENT YELLOW AND CLEAR DRAIN. PATIENT IS CONTRACTED BUE/ BLE. PATIENT HAS SCARAL WOUNDS BLE SCABS AND GT SITE BLEEDING . PATIENT IS ON JEVITY 1.24 ML /HR . PATIENT HAS RUE TRIPLE LUMEN PICC. PATENT AND INTACT. PATIENT AM CARE PROVIDED. TURNED AND REPOSITION Q2H BED LOCKED AND LOWEST POSITION CALL LIGHT IN REACH ALL SAFETY MEASURE IMPLEMENTED PER HOSPITAL
[2019-06-26 07:08] LABS: ALBUMIN 2.3 g/dL (3.4-5.0); BILIRUBIN,TOTAL 0.1 mg/dL (0.2-1.0); CALCIUM, SERUM 8.6 mg/dL (8.5-10.1); CREATININE 1.9 mg/dL (0.6-1.3); PHOSPHORUS 2.6 mg/dL (2.5-4.9); POTASSIUM 4.2 mmol/L (3.5-5.1); TOTAL PROTEIN, SERUM 7.6 g/dL (6.4-8.2)
[2019-06-26 08:00] VITALS: BP 127/69
[2019-06-26] MEDS: DOCUSATE SODIUM LIQ 100 MG/10 ML UDC GT SCH (10:19)
[2019-06-26] MEDS: CHLORHEXIDINE GLUCONATE 15 ML UDC MM SCH ×2 (10:20→16:16)
[2019-06-26] MEDS: LEVETIRACETAM SOL (5 ML) 100 MG/ML UDC GT SCH ×2 (10:20→21:39)
[2019-06-26] MEDS: SODIUM CHLORIDE 1000 MG TABLET GT SCH ×3 (10:24→16:16)
[2019-06-26] MEDS: FAMOTIDINE (20 MG) 20 MG TABLET GT SCH ×2 (10:24→16:16)
[2019-06-26] MEDS: METOPROLOL TARTRATE 50 MG TABLET GT SCH ×2 (10:25→21:39)
[2019-06-26 12:00] VITALS: BP 104/65
[2019-06-26 16:00] VITALS: BP 102/64
--- NOTE | 2019-06-26 19:30 | NUR ---
SPRAYING MACHINE OPERATOR OPENING NOTE RECEIVED PATIENT IN BED. A/O X1., OPENS EYES, NONVERBAL. ON MECHANICAL VENTILATOR MEREDITH #7, AC 18, TV 550, FIO2% 40 PEEP 5. EXTERNAL TELE MONITOR READS ST HR 138. IN NO APPARENT DISTESS AT THIS ITME. NO MANIFESTATION OS S/S OF PAIN AT THIS ITME. IV ACCESSS IN RUE TRIPPLE LUMEN PICC LINE PATENT AND SALIN ELOCKED. GTUBE SITE IS PRESENT, ASPIRATED, NO RESIDUAL, FLUSHED WITH 30ML OF WATER WITH NO RESISTANCE. GTUBE SITE HAS A DRESSING. MULLEN CATHETER IS PRESENT, DRAINING TO GRAVITY URINE IS YELLOW. BED IS LOW AN DLOCKED, HOB ELEVATED IN HIGH FOWLERS, SIDE RIALS UP X3, BED ALARM ON. CALL LIGHT WITHIN REACH. WILL CONTINUE TO MONITOR.
--- NOTE | 2019-06-26 19:52 | NUR ---
PT RCVD TRACH'D ON MECHANICAL VENT WITH CHARTED SETTINGS. PT TAY TX WELL. SX DONE. PT TRACH IS PATENT AND SECURE. VENT ALARMS APPEAR TO BE FUNCTIONING PROPERLY. VENT PLUGGED INTO RED OUTLET. AMBU BAG AT BEDSIDE. NO SOB NOTED. Addendum: 06/26/19 at 3 by DARON BURCH RT Amended: Links added.
[2019-06-26 20:00] VITALS: BP 112/82
--- NOTE | 2019-06-26 21:50 | NUR ---
SEAL MIXER NOTE DID NOT ADMINISTER LANTUS 40 UNITS D/T PATIENT WILL BE NPO AT MIDNIGHT FOR SURGERY TOMORROW. WILL CONTINUE TO MONITOR.
[2019-06-27] VITALS: BP 127/73
[2019-06-27] MEDS: BLOOD SUGAR DIAGNOSTIC 1 EACH STRIP IN SCH ×5 (00:25→23:25)
[2019-06-27] MEDS: IPRATROPIUM NEB FS 0.5 MG/2.5 ML AMPUL.NEB IH SCH ×4 (01:07→19:47)
[2019-06-27 04:00] VITALS: BP 100/84
--- NOTE | 2019-06-27 05:51 | NUR ---
QUILL PICKING MACHINE OPERATOR NOTE 0600 ACCU CHECK BS READS 177. PIPE LINE WALKER INSULIN COVERAGE GIVEN D/T PATIENT NPO FOR SURGERY.WILL CONTINUE TO MONITOR
--- NOTE | 2019-06-27 07:30 | NUR ---
CIO CLOSING NOTE PATIENT IN BED. A/O X1., OPENS EYES, NONVERBAL. REMAINS ON MECHANICAL VENTILATOR MEREDITH #7, AC 18, TV 550, FIO2% 40 PEEP 5. EXTERNAL TELE MONITOR READS ST HR 138. NO DISTRESS NOTED. NO MANIFESTATION OF PAIN THROUGHOUT SHIFT. IV ACCESS MAINTAINED IN RUE TRIPLE LUMEN PICC LINE PATENT AND SALINE LOCKED. GTUBE SITE IS MAINTAINED,NPO SINCE 0000 MULLEN CATHETER IS MAINTAINED, DRAINING TO GRAVITY URINE IS YELLOW. BED IS LOW AND LOCKED, HOB ELEVATED IN HIGH FOWLERS, SIDE RIALS UP X3, BED ALARM ON. CALL LIGHT WITHIN REACH. WILL ENDORSE TO NEXT SHIFT
[2019-06-27 08:00] VITALS: BP 128/70
[2019-06-27] MEDS: METOPROLOL TARTRATE 50 MG TABLET GT SCH ×2 (09:00→20:54)
[2019-06-27] MEDS: FAMOTIDINE (20 MG) 20 MG TABLET GT SCH ×2 (09:00→17:13)
[2019-06-27] MEDS: SODIUM CHLORIDE 1000 MG TABLET GT SCH ×3 (09:00→17:12)
[2019-06-27] MEDS: DOCUSATE SODIUM LIQ 100 MG/10 ML UDC GT SCH (09:00)
[2019-06-27] MEDS: LEVETIRACETAM SOL (5 ML) 100 MG/ML UDC GT SCH ×2 (09:00→20:54)
[2019-06-27] MEDS: CHLORHEXIDINE GLUCONATE 15 ML UDC MM SCH ×2 (09:00→17:12)
[2019-06-27 12:00] VITALS: BP 164/90
[2019-06-27 12:01] LABS: BASOPHILS % (AUTO) 0.3 % (0.0-2.0); EOSINOPHILS % (AUTO) 1.1 % (0.0-6.0); HEMATOCRIT 24 % (39-51); LYMPHOCYTES # (AUTO) 1.9 /CMM (0.8-4.8); LYMPHOCYTES % (AUTO) 13.7 % (20.0-44.0); MEAN CORPUSCULAR HGB CONC 33 g/dl (31.0-36.0); MEAN CORPUSCULAR VOLUME 89 fL (80-96); MONOCYTES # (AUTO) 1.5 /CMM (0.1-1.30); MONOCYTES % (AUTO) 10.8 % (2.0-12.0); NEUTROPHILS # (AUTO) 10.1 /CMM (1.8-8.9); NEUTROPHILS % (AUTO) 74.1 % (43.0-81.0); PLATELET COUNT (AUTO) 525 /CMM (150-450); RED BLOOD CELL COUNT(AUTO) 2.75 MIL/uL (4.5-6.0); WHITE BLOOD COUNT (AUTO) 13.6 K/uL (4.3-11.0)
[2019-06-27] MEDS ORDERED: ROCURONIUM BROMIDE 50 MG/5 ML ONE ×2 (12:01→13:50)
[2019-06-27] MEDS ORDERED: FENTANYL PF 100MCG/2ML AMPUL ONE ×2 (12:02→13:50)
[2019-06-27] MEDS: INSULIN REGULAR, HUMAN 100 UNIT/ML 3 ML VIAL SQ PRN ×3 (12:08→23:37)
[2019-06-27 12:11] LABS: CALCIUM, SERUM 8.6 mg/dL (8.5-10.1); CREATININE 2.1 mg/dL (0.6-1.3); MAGNESIUM 2.2 mg/dL (1.8-2.4); PHOSPHORUS 2.6 mg/dL (2.5-4.9)
[2019-06-27] MEDS ORDERED: METOPROLOL TARTRATE INJ 5 MG/5 ML AMPUL IVP ONE (13:52)
--- NOTE | 2019-06-27 14:05 | NUR ---
TELE/RN NOTES PATIENT WAS PICKED UP BY NURSES FOR SURGERY. PATIENT WAS NOTED WITH HR OF 140-150'S. PER NURSES THEY ARE STILL OK TO TAKE THE PATIENT UP FOR SURGERY. DR. GRULLON WAS ALSO AWARE OF THE SITUATION. PATIENT LEFT THE UNIT IN STABLE CONDITION. AWAITING FOR THE PATIENTS RETURN.
--- NOTE | 2019-06-27 15:00 | NUR ---
TELE/RN NOTES PATIENT WAS BROUGHT BACK BY OR NURSES FROM SURGERY. PER NURSES PATIENT WAS ABLE TO TOLERATE THE PROCEDURE WELL. PATIENT CAME BACK WITH ELEVATED HR OF 150'S AND A SLIGHT FEVER. DR. GRULLON WAS INFORMED WITH ORDERS TO GIVE CARDIZEM 10MG IVP Q6H PRN. PATIENT WAS ALSO GIVEN TYLENOL FOR FEVER ORDERED.. PATIENT CONTINUES TO REMAIN IN STABLE CONDITION. WILL CONTINUE TO MONITOR CLOSELY.
[2019-06-27] MEDS ORDERED: DILTIAZEM HCL 50 MG IV IV PRN (15:30)
[2019-06-27] MEDS ORDERED: DILTIAZEM HCL 25 MG IV IV PRN (16:00)
[2019-06-27] MEDS: ACETAMINOPHEN 325 MG TABLET PO PRN (16:39)
[2019-06-27] MEDS: JEVITY 1.2 CAL 1,000 ML BOTTLE GT PRN (17:18)
--- NOTE | 2019-06-27 19:27 | NUR ---
TELE/RN CLOSING NOTES PATIENT CONTINUES TO REMAIN IN STABLE CONDITION THROUGHOUT THE SHIFT. PROVIDED COMFORT AND SAFETY. PATIENT ABLE TO TOLERATE THE SURGERY WELL. HR REMAINED UNDER 120 AFTER GIVING THE CARDIZEM. HOB ELEVATED AT ALL TIMES. IV ACCESS INTACT AND PATENT. DRESSING WAS CHANGED WELL. FLUSHING WELL. NO S/S OF INFECTION OR INFILTRATION. ALL NEEDS ANTICIPATED. CALL LIGHT WITHIN REACHED. BED LOCKED AND IN LOWEST POSITION. SAFETY MAINTAINED. REPOSITIONED Q2HRS. WILL CONTINUE TO MONITOR CLOSELY. ENDORSED TO PM NURSE FOR CORA.
--- NOTE | 2019-06-27 19:30 | NUR ---
RN OPENING NOTE RECEIVED PT IN BED WITH HEAD OF BED ELEVATED. PT IS OBTUNDED. HR BELOW 120 WITH CONTINUOUS MONITORING. IV ACCESS INTACT AND PATENT.FLUSHING WELL. NO S/S OF INFECTION OR INFILTRATION. ON TUBE FEEDING AND TOLERATING WELL. GT PATENT IN PLACE. ALL NEEDS MET AND ATTENDED TO. CALL LIGHT WITHIN REACHED. BED LOCKED AND IN LOWEST POSITION. SAFETY MEASURES IN PLACE. MULLEN CATHETER PATENT AND IN PLACE DRAINING CLEAR YELLOW URINE. TOLERATING MECHANICAL VENTILATOR WELL. TRACH MID LINE AND IN PLACE. RESPIRATIONS EVEN AND UNLABORED. WILL MONITOR.
[2019-06-27 20:00] VITALS: BP 134/77
[2019-06-27] MEDS: INSULIN GLARGINE, 100 UNIT/ML CARTRIDGE SQ SCH (21:22)
[2019-06-28] VITALS: BP 134/79
[2019-06-28] MEDS: IPRATROPIUM NEB FS 0.5 MG/2.5 ML AMPUL.NEB IH SCH ×4 (02:18→19:30)
[2019-06-28 04:00] VITALS: BP 138/73
[2019-06-28] MEDS: INSULIN REGULAR, HUMAN 100 UNIT/ML 3 ML VIAL SQ PRN ×2 (05:44→12:25)
[2019-06-28] MEDS: BLOOD SUGAR DIAGNOSTIC 1 EACH STRIP IN SCH ×2 (05:58→12:24)
--- NOTE | 2019-06-28 07:20 | NUR ---
TELE/RN OPENING NOTES RECEIVED PATIENT IN BED SLEEPING COMFORTABLY. PATIENT ABLE TO RESPOND TO TACTILE STIMULI. NO FACIAL GRIMACING AT THIS TIME. RESPIRATION EVEN AND UNLABORED. SKIN IS DRY WARM TO TOUCH. IV ACCESS ON RUE INTACT AND PATENT. FLUSHING WELL. NO S/S OF INFECTION OR INFILTRATION. HOB ELEVATED AT ALL TIMES. MULLEN CATH INTACT AND IN PLACE WELL. DRAINING YELLOW URINE. ALL NEEDS ANTICIPATED. CALL LIGHT WITHIN REACHED. BED LOCKED AND IN LOWEST POSITION. SAFETY MAINTAINED. WILL CONTINUE TO MONITOR CLOSELY.
--- NOTE | 2019-06-28 07:25 | NUR ---
RN CLOSING NOTE PT IN BED WITH HEAD OF BED ELEVATED. PT IS NON VERBAL. HR BELOW 120 WITH CONTINUOUS MONITORING. ON TUBE FEEDING AND TOLERATING WELL. GT PATENT IN PLACE. NO RESIDUAL NOTED. MULLEN CATHETER PATENT AND IN PLACE DRAINING CLEAR YELLOW URINE. TOLERATING MECHANICAL VENTILATOR WELL. TRACH MID LINE AND IN PLACE. RESPIRATIONS EVEN AND UNLABORED. ALL NEEDS MET AND ATTENDED TO. CALL LIGHT WITHIN REACHED. BED LOCKED AND IN LOWEST POSITION. SAFETY MEASURES IN PLACE. WILL MONITOR. Addendum: 06/28/19 at 0726 by KENY MCCLURE RN ENDORSED TO MORNING SHIFT FOR CONTINUITY OF CARE.
[2019-06-28 07:55] LABS: BASOPHILS # (AUTO) 0.1 /CMM (0.0-0.2); BASOPHILS % (AUTO) 0.5 % (0.0-2.0); EOSINOPHILS % (AUTO) 3.7 % (0.0-6.0); HEMATOCRIT 24 % (39-51); HEMOGLOBIN 7.7 g/dL (13.5-17.5); LYMPHOCYTES # (AUTO) 1.5 /CMM (0.8-4.8); LYMPHOCYTES % (AUTO) 12.3 % (20.0-44.0); MEAN CORPUSCULAR HGB CONC 32 g/dl (31.0-36.0); MEAN CORPUSCULAR VOLUME 90 fL (80-96); MONOCYTES # (AUTO) 1.1 /CMM (0.1-1.30); MONOCYTES % (AUTO) 9.5 % (2.0-12.0); NEUTROPHILS # (AUTO) 8.8 /CMM (1.8-8.9); PLATELET COUNT (AUTO) 465 /CMM (150-450); RED BLOOD CELL COUNT(AUTO) 2.68 MIL/uL (4.5-6.0); WHITE BLOOD COUNT (AUTO) 11.8 K/uL (4.3-11.0)
[2019-06-28 08:00] VITALS: BP_SYST 153; BP_SYST 164; BP_DIAS 81; BP_DIAS 82
[2019-06-28 08:00] LABS: CALCIUM, SERUM 8.3 mg/dL (8.5-10.1); CREATININE 1.7 mg/dL (0.6-1.3); PHOSPHORUS 2.9 mg/dL (2.5-4.9); POTASSIUM 3.9 mmol/L (3.5-5.1)
[2019-06-28] MEDS: SODIUM CHLORIDE 1000 MG TABLET GT SCH ×3 (08:27→16:10)
[2019-06-28] MEDS: DOCUSATE SODIUM LIQ 100 MG/10 ML UDC GT SCH (08:28)
[2019-06-28] MEDS: FAMOTIDINE (20 MG) 20 MG TABLET GT SCH ×2 (08:28→16:10)
[2019-06-28] MEDS: METOPROLOL TARTRATE 50 MG TABLET GT SCH (08:28)
[2019-06-28] MEDS: CHLORHEXIDINE GLUCONATE 15 ML UDC MM SCH ×2 (08:28→16:11)
[2019-06-28] MEDS: LEVETIRACETAM SOL (5 ML) 100 MG/ML UDC GT SCH (08:28)
[2019-06-28] MEDS: ACETAMINOPHEN 325 MG TABLET PO PRN (11:11)
--- NOTE | 2019-06-28 11:25 | NUR ---
PT REC'D TRACH'D ON MECHANICAL VENT WITH CHARTED SETTINGS. PT TAY TX WELL. SX DONE. PT TRACH IS PATENT AND SECURE. VENT ALARMS ON AND AUDIBLE. VENT PLUGGED INTO RED OUTLET. AMBU BAG AT BEDSIDE. NO SOB NOTED. Addendum: 06/28/19 at 1126 by AMARIS LUNDBERG RT Amended: Links added.
[2019-06-28 12:00] VITALS: BP_SYST 143; BP_SYST 150; BP_DIAS 84; BP_DIAS 87
[2019-06-28 16:00] VITALS: BP 115/75
--- NOTE | 2019-06-28 16:48 | NUR ---
TELE/BIOMETRY TEACHER NOTES EMT'S AND RT FROM [facility] ARRIVED AT THE UNIT. ALL DISCHARGE PAPERS WAS PREPARED AND WAS GIVEN TO THE EMT. REPORT WAS GIVEN WELL TO EMT AND HEMA LOCKWOOD IN [facility]. SKIN ASSESSMENT WAS DONE AND PHOTOS WAS TAKEN AND WAS PLACED IN THE CHART. PATIENT DID NOT NOT HAVE ANY BELONGINGS. PATIENT LEFT THE HOSPITAL IN STABLE CONDITION.
[2019-06-29] MEDS ORDERED: HYDROGEN PEROXIDE 480 ML BOTTLE TP SCH (09:00)
[2019-07-23] MEDS ORDERED: MERO1VIA23 IV (10:39)
== END 2019-06-28 16:48 | DRG 907 ==
LOC: ER 17:24 → TELE1 20:10
PROVIDERS: ADMIT Nurse Practitioner Acute Care; ATTEND Internal Medicine
PROC: 5A1945Z Respiratory Ventilation, 24-96 Consecutive Hours (ICD-10-PCS; principal; 2019-06-24)
PROC: 0WQF0ZZ Repair Abdominal Wall, Open Approach (ICD-10-PCS; 2019-06-27)
DX: T81.31XA Disruption of external operation (surgical) wound, not elsewhere classified, initial encounter (principal); N17.0 Acute kidney failure with tubular necrosis; R53.2 Functional quadriplegia; J96.10 Chronic respiratory failure, unspecified whether with hypoxia or hypercapnia; Z99.11 Dependence on respirator [ventilator] status; G93.1 Anoxic brain damage, not elsewhere classified; K31.6 Fistula of stomach and duodenum; D68.59 Other primary thrombophilia; E87.0 Hyperosmolality and hypernatremia; Y83.9 Surgical procedure, unspecified as the cause of abnormal reaction of the patient, or of later complication, without mention of misadventure at the time of the procedure; Y92.89 Other specified places as the place of occurrence of the external cause; G40.909 Epilepsy, unspecified, not intractable, without status epilepticus; E78.5 Hyperlipidemia, unspecified; D64.9 Anemia, unspecified; F41.9 Anxiety disorder, unspecified; F32.9 Major depressive disorder, single episode, unspecified; I25.10 Atherosclerotic heart disease of native coronary artery without angina pectoris; Z86.73 Personal history of transient ischemic attack (TIA), and cerebral infarction without residual deficits; F09 Unspecified mental disorder due to known physiological condition; E11.22 Type 2 diabetes mellitus with diabetic chronic kidney disease; Z93.0 Tracheostomy status; I12.9 Hypertensive chronic kidney disease with stage 1 through stage 4 chronic kidney disease, or unspecified chronic kidney disease; R13.10 Dysphagia, unspecified; M62.462 Contracture of muscle, left lower leg; M62.461 Contracture of muscle, right lower leg; M62.422 Contracture of muscle, left upper arm; M62.421 Contracture of muscle, right upper arm; L89.156 Pressure-induced deep tissue damage of sacral region; Z74.01 Bed confinement status; N18.9 Chronic kidney disease, unspecified; Q78.9 Osteochondrodysplasia, unspecified; K94.21 Gastrostomy hemorrhage
CPT/HCPCS: 31720; 36415; 71045-TC; 76770-TC; 80048-TC; 80053-TC; 80061-TC; 81000-TC; 82550-TC; 82570-TC; 82962-TC; 83690-TC; 83735-TC; 83970; 84100-TC; 84155-TC; 84300-TC; 85025-TC; 85730-TC; 87081-TC; 87086-TC; 87186-TC; 94002-TC; 94003-TC; 94760-TC; 94762-TC; A4623; A6253; A6403; G0378; J0690; J1815; J1953; J2370; J3010; J3490; J7040; J7050

== ENCOUNTER 2019-07-16 15:28 | Inpatient (IN) | payer MEDICARE, MEDICAID ==
[2019-07-16] VITALS (7 sets, daily range): BP systolic 92–118; BP diastolic 51–70
[~2019-07-16] VITALS: Ht 165.1 cm; Wt 55.3 kg
[~2019-07-16 15:28] MED LIST changes: +ACET-2605 GT; +AMIN30LI2 GT; +CHLO473M5 MM; +INSU100V7 SQ; -INSU300I SQ; +IPRA0.2S9 IH; -IPRA12.9 IH; +LACT-96 GT; +NA P133E RC; -NA P133E4 RC; +SENN-168 GT; -SENN-261 GT; -SULF1TAB3 GT
--- NOTE | 2019-07-16 15:40 | NUR ---
[facility] SEND BY [facility]D FOR OLD GT SITE DEHISCENCE EVAL. PATIENT OPENS EYES, TRACHE WITH MECHANICAL VENT DEPENDENT. KEPT COMFORTABLE.
[2019-07-16] MEDS ORDERED: FERR300L GT (15:46)
[2019-07-16] MEDS ORDERED: NUT.237L31 GT (15:46)
[2019-07-16] MEDS ORDERED: EPOE1VIA6 SQ (15:46)
[2019-07-16] MEDS ORDERED: CHLO118L6 TP (15:48)
--- NOTE | 2019-07-16 15:52 | NUR ---
CALLED NURSING SUP FOR M/S BED.
--- NOTE | 2019-07-16 15:53 | NUR ---
RT note Pt received ER trached on mechanical ventilation, pt was switched over on hospital vent with noted settings by transport RT. Pt is awake but does not follow commands. Vent is lugged into red outlet. No SOB or respiratory distress noted. Addendum: 07/16/19 at 1554 by ANGELLA RASCON RT Amended: Links added.
[2019-07-16 15:55] LABS: BASOPHILS # (AUTO) 0.1 /CMM (0.0-0.2); BASOPHILS % (AUTO) 0.5 % (0.0-2.0); EOSINOPHILS % (AUTO) 1.1 % (0.0-6.0); HEMATOCRIT 21 % (39-51); LYMPHOCYTES # (AUTO) 1.3 /CMM (0.8-4.8); LYMPHOCYTES % (AUTO) 10.9 % (20.0-44.0); MEAN CORPUSCULAR HGB CONC 32 g/dl (31.0-36.0); MEAN CORPUSCULAR VOLUME 88 fL (80-96); MONOCYTES % (AUTO) 8.3 % (2.0-12.0); NEUTROPHILS # (AUTO) 9.6 /CMM (1.8-8.9); NEUTROPHILS % (AUTO) 79.2 % (43.0-81.0); PLATELET COUNT (AUTO) 393 /CMM (150-450); RED BLOOD CELL COUNT(AUTO) 2.37 MIL/uL (4.5-6.0); WHITE BLOOD COUNT (AUTO) 12.1 K/uL (4.3-11.0)
--- NOTE | 2019-07-16 16:04 | NUR ---
PAGED [facility].
[2019-07-16 16:06] LABS: CALCIUM, SERUM 8.4 mg/dL (8.5-10.1); CREATININE 1.7 mg/dL (0.6-1.3); HEMOGLOBIN 6.6 g/dL (13.5-17.5); POTASSIUM 4.5 mmol/L (3.5-5.1)
--- NOTE | 2019-07-16 16:59 | NUR ---
NURSING SUP GAVE TELE BED 102.
--- NOTE | 2019-07-16 17:24 | NUR ---
REPORT GIVEN TO RADHA GARRIDO.
[2019-07-16] MEDS ORDERED: ACETAMINOPHEN 325 MG TABLET PO PRN (18:00)
[2019-07-16] MEDS ORDERED: ZOLPIDEM TARTRATE 5 MG TABLET PO PRN (18:00)
[2019-07-16] MEDS ORDERED: ONDANSETRON HCL/PF 4 MG/2 ML VIAL IVP PRN (18:00)
[2019-07-16] MEDS ORDERED: Z GUARD REMEDY 2 OZ OINT TP PRN (18:00)
[2019-07-16] MEDS ORDERED: HYDROCODONE/APAP 5/325MG 1 EACH TABLET PO PRN (18:00)
[2019-07-16] MEDS ORDERED: MEROPENEM 1 G in IV NS 0.9% 100 ML IV SCH (18:00)
[2019-07-16 18:06] LABS: BAND % (MANUAL) 15 % (0.0-5.0); EOSINOPHILS % (MANUAL) 5 % (0-4); LYMPHOCYTES % (MANUAL) 10 % (16-48); MONOCYTES % (MANUAL) 9 % (0-11.0); NEUTROPHILS % (MANUAL) 61 (42-76)
--- NOTE | 2019-07-16 18:10 | NUR ---
PATIENT TRANSFERRED TO ROOM 102 VIA ACLS PROTOCOL. NO DISTRESS NOTED, ACCOMPANIED BY RT. BLOOD PRODUCT NOT READY AT THIS TIME, ENDORSED TO NALLELY GARRIDO.
--- NOTE | 2019-07-16 18:23 | NUR ---
CALLED DR WYNN TO INFORM ABOUT ADMISSION/ REVIEW MED RECON. AWAITING CALL BACK.
[2019-07-16] MEDS: IV NS 0.9% 1,000 ML IV PRN (18:44)
[2019-07-16] MEDS ORDERED: FEE PK DOSING 1 MIN EA MC ONE (18:50)
[2019-07-16] MEDS ORDERED: VANCOMYCIN 1 GM in IV D5W 250ml IV ONE (19:00)
--- NOTE | 2019-07-16 19:08 | NUR ---
RN ADMITTING NOTE: RECEIVED PATIENT VIA GURNEY. PATIENT IS OBTUNDED. BED BOUND. TRACH, PORTEX 7 TOLERATING SETTINGS WELL. NO RESPIRATORY DISTRESS NOTED. RHONCHI HEARD UPON AUSCULTATION. PATIENT ON TELE MONITOR, SR. VSS, TACHYCARDIC PULSE 108. PATIENT HAS GT BUT IS CURRENTLY NPO. PATIENT HAS MULLEN CATHETER, DRAINING WELL. PICC LINE TRIPLE LUMEN AT BLANCA, FLUSHING WELL. PATIENT PREVIOUSLY HAD A GT REMOVED, OLD GT SITE OPENED UP AND FORMED A WOUND, PATIENT ALSO HAS PRESSURE ULCER ON SACRUM. WOUND CARE CONSULT ORDERED. PICTURES TAKEN AND PLACED IN CHART. PATIENT WILL BE RECEIVING 1 UNIT OF PRBC D/T DECREASED H&H. ENDORSED TO ONCOMING RN TO FINISH ADMISSION, CONTINUE PLAN OF CARE AND F/U WITH FOR MED RECON AND NOTIFICATION OF ADMISSION.
--- NOTE | 2019-07-16 19:15 | NUR ---
SHIRT LINE OPERATOR OPENING NOTES, RECEIVED MR NAQVI ON BED AWAKE, OBTUNDED , WITH FAMILY MEMBERS AT BED SIDE, PT ON TRACH PORTEX 7 CONNECTED TO VENT SETTING PER MD, NO SIGN AND SYMPTOMS OF ANY DISTRESS, NO PAIN NOTED, ON TELE MONITOR READING SR 90'S, WITH PICC LINE 3 LUMEN ON BLANCA WITH ONGOING IVF OF 1L NS @75ML/HR INFUSING WELL, PT HAVE GTUBE CLAMPED, PT HAVE MULLEN WITH YELLOW COLOR URINE,SAFETY MEASURED ON PLACE, VENT PLUGGED ON RED OUTLET, SIDE RAILS UP X2 BED ON LOWEST POSSIBLE HEIGHT, WILL CONT. TO MONITOR THE PT
[2019-07-16] MEDS ORDERED: MEROPENEM 1 G in IV NS 0.9% 100 ML IV ONE (20:00)
--- NOTE | 2019-07-16 22:00 | NUR ---
REMOTE RECRUITER NOTES CANNOT START MERREM DUE TO PT STARTED BLOOD TRANSFUSION
--- NOTE | 2019-07-16 23:59 | NUR ---
HVAC/R INSTRUCTOR NOTE BLOOD TRANSFUSION COMPLETE. NO SIGN OF SYMPTOMS ANY TRANSFUSION REACTIONS. VITALS ALL WNL. WILL CONTINUE TO MONITOR.
[2019-07-17] VITALS (8 sets, daily range): BP systolic 110–131; BP diastolic 61–75
[2019-07-17] MEDS: VANCOMYCIN 500 MG in IV D5W 100ml IV SCH ×2 (05:05→18:12)
[2019-07-17] MEDS: MEROPENEM 1 G in IV NS 0.9% 100 ML IV SCH ×2 (06:15→19:15)
[2019-07-17 06:50] LABS: BASOPHILS # (AUTO) 0.1 /CMM (0.0-0.2); BASOPHILS % (AUTO) 0.6 % (0.0-2.0); EOSINOPHILS % (AUTO) 2.8 % (0.0-6.0); HEMATOCRIT 30 % (39-51); HEMOGLOBIN 9.4 g/dL (13.5-17.5); LYMPHOCYTES # (AUTO) 1.6 /CMM (0.8-4.8); LYMPHOCYTES % (AUTO) 17.1 % (20.0-44.0); MEAN CORPUSCULAR HGB CONC 31 g/dl (31.0-36.0); MEAN CORPUSCULAR VOLUME 89 fL (80-96); MONOCYTES # (AUTO) 1.1 /CMM (0.1-1.30); MONOCYTES % (AUTO) 11.7 % (2.0-12.0); NEUTROPHILS # (AUTO) 6.3 /CMM (1.8-8.9); NEUTROPHILS % (AUTO) 67.8 % (43.0-81.0); PLATELET COUNT (AUTO) 366 /CMM (150-450); RED BLOOD CELL COUNT(AUTO) 3.35 MIL/uL (4.5-6.0); WHITE BLOOD COUNT (AUTO) 9.2 K/uL (4.3-11.0)
--- NOTE | 2019-07-17 07:10 | NUR ---
STEEL DIE PRINTER NOTES PATIENT A/OX1 ABLE TO OPEN EYES WHEN NAME CALLED. ON VENT SAT 97%. SINUS RHYTHM 67, NPO. ON MULLEN CATHETER (50CC OUT). NO SOB DISCOMFORT AND PAIN NOTED AT THIS TIME. CALL LIGHT WITHIN REACH BED AT THE LOWEST POSITION CALL LIGHT WITHIN REACH. PER PIT LABORER NURSE ISO FLEX BED ORDERED WILL FOLLOW UP WITH [facility]. FAMILY HAS DECIDED TO CHANGE THE CODE STATUES, PIT LABORER NURSE CONTACTED NEXT OF KIN AND LEFT A VOICE MAIL FOR THE PAPERS TO SIGN. WILL FOLLOW UP.
--- NOTE | 2019-07-17 07:13 | NUR ---
CARGO INSPECTOR CLOSING NOTES PT IS ON STABLE CONDITION NO SIGN AND SYMPTOMS OF RESPIRATORY DISTRESS, NO PAIN NOTED, STILL ON VENT, SETTING PER MD, O2 SAT >92%, ON TELE MONITOR WITH CURRENT READING OF SR 70"S, FOR WOUND CONSULT, STILL FOR MED RECON DR. KELLY AWARE, ALL NEEDS ATTENDED, NO SIGNIFICANT CHANGES ON CONDITON NOTED, SAFETY MEASURES MAINTAINED, CALL LIGHT WITHIN REACH, BED ON LOWEST POSSIBLE POSITION, SIDE RAILS UPX3 WILL ENDORSED TO AM SHIFT RN
[2019-07-17 07:44] LABS: ALBUMIN 2.1 g/dL (3.4-5.0); BILIRUBIN,TOTAL 0.3 mg/dL (0.2-1.0); CALCIUM, SERUM 8.5 mg/dL (8.5-10.1); CREATININE 1.5 mg/dL (0.6-1.3); MAGNESIUM 2.2 mg/dL (1.8-2.4); PHOSPHORUS 2.3 mg/dL (2.5-4.9); POTASSIUM 3.9 mmol/L (3.5-5.1); TOTAL PROTEIN, SERUM 7.8 g/dL (6.4-8.2)
[2019-07-17 08:34] LABS: ABG BASE EXCESS -0.1 mmol/L; ABG OXYGEN SATURATION 98.8 % (92.0-98.5); ABG PH 7.534 (7.350-7.450); ABG PO2 188.5 mmHg (75.0-100.0); AaDO2 66.8 mmHg; COHb 0.3 % (0.5-1.5); MetHb 0.5 % (0.0-1.5); SITE, ABG Right Radial
[2019-07-17] MEDS ORDERED: Sodium Phosphate 15 MMOL in IV D5W 250 ML IV ONE (10:00)
--- NOTE | 2019-07-17 16:17 | NUR ---
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 Patient is non-verbal, trach and vent dependent, resides at [facility] [phone]. He is bedfast and totally dependent with adl's. Current dc plan is to return to [facility], bedhold x7days. Addendum: 07/17/19 at 1617 by DIANDRA JACOBS RN Amended: Links added.
--- NOTE | 2019-07-17 18:59 | NUR ---
TELEPHONE CLERK TELEGRAPH OFFICE NOTES PATIENT IS NPO AND WILL HAVE SURGERY ON 07/18/2019 AT 1400. OBTAINED ORDERED FROM DR BLEVINS FOR: d5 1/2 NS 80 ML/HR, READ BACK.
[2019-07-17] MEDS ORDERED: IV D5/0.45 NACL 1,000 ML IV ONE (19:00)
--- NOTE | 2019-07-17 19:10 | NUR ---
ACIDIZER WATER WELL NOTES CLOSING PATIENT IN BED A/OX1 NO SOB OR DISCOMFORT NOTED AT THIS TIME. PATIENT IS SCHEDULED FOR SURGERY TOMORROW BY DR MCCLELLAN. CONSENT SIGNED IN THE CHART. ALL NEEDS ATTENDED. BED AT THE LOWEST POSITION LOCKED. ENDORCED TO CRYSTALIZER NURSE FOR CORA.
--- NOTE | 2019-07-17 19:30 | NUR ---
ELECTRICAL PARTS RECONDITIONER NOTE: PATIENT RESTING IN BED, NO ACUTE DISTRESS NOTED,BREATHING EVEN AND UNLABORED, NO SOB NOTED. VENT SETTINGS IN PLACE. TELE READING SR 80. PICC LINE TO BLANCA IN PLACE. MULLEN CATHETER IN PLACE, EMPTY AT THIS TIME. BED LOCKED AND IN LOWEST POSITION, CALL LIGHT IN REACH. WILL CONTINUE TO MONITOR.
[2019-07-18] VITALS (8 sets, daily range): BP systolic 101–159; BP diastolic 64–89
--- NOTE | 2019-07-18 02:00 | NUR ---
SPEECH LANGUAGE PATHOLOGIST PRN NOTE: PATIENT FOR SURGERY LATER TODAY, CONSENT SIGNED FROM FAMILY EARLIER DURING THE DAY. CHECKLIST COMPLETED. WILL CONTINUE TO MONITOR.
[2019-07-18] MEDS ORDERED: LORAZEPAM INJ 2 MG/ML VIAL IV ONE (05:20)
[2019-07-18] MEDS ORDERED: LORAZEPAM INJ 2 MG/ML VIAL IV PRN (05:30)
--- NOTE | 2019-07-18 05:30 | NUR ---
DISTRICT MANAGER PRIMARY CARE SALES NOTE: PATIENT NOTED HYPERVENTILATING, HR ELEVATED FROM 150 TO 170. RT AT BEDSIDE, TRY TO SUCTION AND STARTED TO BAG PATIENT. PATIENT BP 159/89. TEMP 98.6. CALLED SCHOOL PHOTOGRAPH EDITOR MD AND RECEIVED ORDERS FOR ATIVAN 2MG IV ONCE NOW AND TO CONTINUE TO HAVE ATIVAN 2MG IV EVERY 4 HRS PRN. ALSO ORDERED FOR A NEURO CONSULT. ORDER NOTED AND CARRIED OUT. ATIVAN 2MG IV GIVEN PER MD ORDER. WILL CONTINUE TO MONITOR.
[2019-07-18] MEDS: MEROPENEM 1 G in IV NS 0.9% 100 ML IV SCH ×2 (05:42→17:54)
[2019-07-18 06:37] LABS: CALCIUM, SERUM 8.4 mg/dL (8.5-10.1); CREATININE 1.5 mg/dL (0.6-1.3); PHOSPHORUS 3.5 mg/dL (2.5-4.9); POTASSIUM 3.3 mmol/L (3.5-5.1)
--- NOTE | 2019-07-18 06:40 | NUR ---
ART APPRAISER NOTE: PATIENT RESTING IN BED, NO ACUTE DISTRESS NOTED,BREATHING EVEN AND UNLABORED, NO SOB NOTED. VENT SETTINGS IN PLACE. PATIENT MORE RELAXED AT THIS TIME. TELE READING SR 150. PICC LINE TO BLANCA IN PLACE. MULLEN CATHETER IN PLACE, DRAINED 850ML OF CLEAR YELLOW URINE. BED LOCKED AND IN LOWEST POSITION, CALL LIGHT IN REACH. WILL ENDORSE TO DAY NURSE TO CONTINUE WITH PLAN OF CARE.
--- NOTE | 2019-07-18 07:00 | NUR ---
MANAGER OF OPERATIONS NOTE: PATIENT SCHEDULED 0600 VANCOMYCIN NOT GIVEN YET, VANCO TROUGH STILL PENDING. WILL ENDORSE TO DAY NURSE.
[2019-07-18 08:05] LABS: BASOPHILS % (AUTO) 0.2 % (0.0-2.0); EOSINOPHILS % (AUTO) 0.9 % (0.0-6.0); HEMATOCRIT 27 % (39-51); HEMOGLOBIN 8.6 g/dL (13.5-17.5); LYMPHOCYTES # (AUTO) 0.2 /CMM (0.8-4.8); LYMPHOCYTES % (AUTO) 3.1 % (20.0-44.0); MEAN CORPUSCULAR HGB CONC 32 g/dl (31.0-36.0); MEAN CORPUSCULAR VOLUME 89 fL (80-96); MONOCYTES # (AUTO) 0.1 /CMM (0.1-1.30); MONOCYTES % (AUTO) 1.4 % (2.0-12.0); NEUTROPHILS # (AUTO) 5.6 /CMM (1.8-8.9); NEUTROPHILS % (AUTO) 94.4 % (43.0-81.0); PLATELET COUNT (AUTO) 381 /CMM (150-450); RED BLOOD CELL COUNT(AUTO) 3.08 MIL/uL (4.5-6.0)
--- NOTE | 2019-07-18 08:14 | NUR ---
METAL OR WOOD BLOCKER NOTES OPENING RECEIVED PATIENT A/OX 1 WITH TACHYCARDIA 154. PT SCHEDULE FOR SURGERY TODAY. CBC INT , PTT ORDERED STAT. PER WATER QUALITY TESTER NURSE ATIVAN ORDERED OBTAINED FOR AGITATION. WILL FOLLOW UP WITH MD FOR TACHYCARDIA.
[2019-07-18] MEDS ORDERED: POTASSIUM CHLORIDE 20 MEQ TAB.PRT.SR PO SCH (10:00)
[2019-07-18] MEDS: POTASSIUM CL. PREMIX PERIPHER. 50 ML IV SCH ×2 (10:42→11:52)
--- NOTE | 2019-07-18 11:03 | NUR ---
CUTTER BARREL DRUM NOTES CALLED PHARMACY REGARDING VANCO ADMINISTRATION. VANCO VAS DUE ON 0600 AND THROUGH LEVEL WAS PENDING. THROUGH LEVEL 18 AND PER PHARMACY OK TO ADMINISTER THE VANCO.
[2019-07-18] MEDS: VANCOMYCIN 500 MG in IV D5W 100ml IV SCH (11:31)
--- NOTE | 2019-07-18 12:45 | NUR ---
COLOR ROOM ATTENDANT NOTES PATIENT TRANSFERRED TO SURGERY SAFELY.
[2019-07-18] MEDS ORDERED: LIDOCAINE HCL/PF 1% 30 ML SDV ONE (13:20)
[2019-07-18] MEDS ORDERED: BUPIVACAINE MPF 0.5% W/EPI INJ 30 ML VIAL ONE (13:20)
--- NOTE | 2019-07-18 17:24 | NUR ---
RT NOTE RECEIVED PATIENT ON MECHANICAL VENT WITH ORDERED SETTING. ALARMS ON AND AUDIBLE. VENT PLUGGED IN TO RED OUTLET. TRACH TUBE IN PLACE PATENT AND SECURED WITH TRACH TIE. AMBU BAG AND BACK UP TRACH BY THE BEDSIDE. NO RESP DISTRESS AT THIS TIME. WILL CONTINUE TO MONITOR.
[2019-07-18] MEDS: IV NS 0.9% 1,000 ML IV PRN (17:52)
[2019-07-18] MEDS: JEVITY 1.2 CAL 1,000 ML BOTTLE GT PRN (18:54)
--- NOTE | 2019-07-18 19:30 | NUR ---
PSYCHIATRIC SOCIAL WORKER SUPERVISOR NOTE: PATIENT RESTING IN BED, NO ACUTE DISTRESS NOTED,BREATHING EVEN AND UNLABORED, NO SOB NOTED. VENT SETTINGS IN PLACE AC SETTINGS WELL TOLERATED , PATIENT ON TELE READING SR 100 ON THE MONITOR . PICC LINE TO BLANCA IN PLACE. MULLEN CATHETER IN PLACE, DRAINING OF CLEAR YELLOW URINE. BED LOCKED AND IN LOWEST POSITION, CALL LIGHT IN REACH. DUE MEDS GIVEN ORDERED GT SITE CLEAN DRY NO BLEEDING NOTED ON JEVITY 1.2 AT 40CC/HR WELL TOLERATED NO RESIDUAL NOTED .TURNED AND REPOSITION HOB ELEVATED AT ALL TIMES FOR ASPIRATION PRECAUTION.KEPT PTS CLEAN DRY AND COMFORTABLE.WILL CONTINUE TO MONITOR PTS.
--- NOTE | 2019-07-18 19:38 | NUR ---
INFORMATION TECHNOLOGY COORDINATOR NOTES CLOSING PATIENT IN BED A/OX 1 COMFORTABLE. RESUME GTUBE FEEDING. FLUSHED THE GTUBE SITE WELL. FAMILY AT BED SIDE. NO SOB OR PAIN NOTED AT THIS TIME. ALL NEEDS ATTENDED. BED AT THE LOWEST POSITION LOCKED. ENDORSED TO PATHOLOGY SECRETARY/TRANSCRIPTIONIST NURSE FOR [facility].
[2019-07-19] VITALS: BP 135/79
[2019-07-19 04:00] VITALS: BP 108/56
[2019-07-19] MEDS: VANCOMYCIN 500 MG in IV D5W 100ml IV SCH ×2 (04:17→23:13)
[2019-07-19] MEDS: MEROPENEM 1 G in IV NS 0.9% 100 ML IV SCH ×2 (05:05→17:54)
--- NOTE | 2019-07-19 06:23 | NUR ---
NUT SIFTER NOTES PTS REMAINS IN BED CONTINUE ON GT FEEDING WELL TOLERATED BY PTS .S/P FISTULA CLOSURE GT SITE , DRESSING DRY AND INTACT.NO BLEEDING NOTED . CONT ON VENTILATOR TOLERATED WELL NO SOB NO DISTRESS NOTED . WILL ENDORSE TO RN DAY SHIFT FOR CONTINUITY OF CARE.
[2019-07-19 07:43] LABS: CALCIUM, SERUM 8.2 mg/dL (8.5-10.1); CREATININE 1.5 mg/dL (0.6-1.3); POTASSIUM 4.1 mmol/L (3.5-5.1)
--- NOTE | 2019-07-19 07:43 | NUR ---
BUFFING AND POLISHING WHEEL REPAIRER OPENING NOTES PATIENT ASLEEP IN BED, NO ACUTE DISTRESS NOTED,BREATHING EVEN AND UNLABORED, NO SOB NOTED. VENT SETTINGS PER ORDER IN PLACE, AC SETTINGS WELL TOLERATED , PATIENT ON TELE READING SR 89 ON THE MONITOR . PICC LINE TO BLANCA IN PLACE., RUNNING D5 1/2 NS @75ML/HR WITH 200ML LEFT ON THE BAG. INTACT, PATENT AND FLUSHED WELL. NO SIGNS OF INFILTRATION NOTED . MULLEN CATHETER IN PLACE, DRAINING VIA GRAVITY WITH 100 ML OF CLEAR YELLOW URINE ON THE BAG. BED LOCKED AND IN LOWEST POSITION, CALL LIGHT IN REACH. GT SITE CLEAN DRY NO BLEEDING NOTED ON JEVITY 1.2 AT 40CC/HR WITH REMAINING 600 ML ON THE CONTAINER . INTACT, PATENT AND FLUSHED WELL, NO RESIDUAL NOTED .HOB ELEVATED. WILL CONTINUE TO MONITOR PTS.
[2019-07-19 08:00] VITALS: BP 138/72
[2019-07-19] MEDS: IV NS 0.9% 1,000 ML IV PRN ×2 (10:34→23:19)
[2019-07-19 12:00] VITALS: BP 132/82
--- NOTE | 2019-07-19 12:22 | NUR ---
RT NOTE Pt rec'd trached on [facility] vent on AC mode. Pt shows no signs of resp distress or sob. Trach is patent and secured. Pt sx'd for mod amt of pale yellow secretions. Alarms are set and audible. Vent plugged into red outlet. Ambu bag bedside. Will continue to monitor. Addendum: 07/19/19 at 1223 by REBA WALKER RT Amended: Links added.
[2019-07-19 16:00] VITALS: BP 139/81
--- NOTE | 2019-07-19 17:51 | NUR ---
RN NOTES [place] JUST GOT DELIVERED FROM PHARMACY .
[2019-07-19] MEDS: MUPIROCIN OINT 2% 22 GM TUBE TP SCH (17:52)
[2019-07-19] MEDS: JEVITY 1.2 CAL 1,000 ML BOTTLE GT PRN ×2 (18:43→21:48)
--- NOTE | 2019-07-19 19:04 | NUR ---
RN CLOSING NOTES PATIENT IN BED, ASLEEP. IN NO APPARENT DISTRESS NOTED. IV ACCESS ON R UA PICC LINE, INTACT, PATENT AND FLUSHED WELL. NO SIGNS OF INFILTRATION. ON MECHANICAL VENTILATOR SETTING PER ORDER. TOLERATING WELL. KEPT CLEANED AND DRY. ALL NEEDS MET. SAFETY PRECAUTIONS IN PLACED. ENDORSED TO PM RN FOR CORA.
--- NOTE | 2019-07-19 19:30 | NUR ---
IMAGERY INTELLIGENCE NOTES PATIENT RESTING IN BED, NO ACUTE DISTRESS NOTED,BREATHING EVEN AND UNLABORED, NO SOB NOTED. VENT SETTINGS IN PLACE AC SETTINGS WELL TOLERATED , PATIENT ON TELE SR 68 ON THE MONITOR . PICC LINE TO BLANCA IN PLACE. MULLEN CATHETER IN PLACE, DRAINING OF CLEAR YELLOW URINE. BED LOCKED AND IN LOWEST POSITION, CALL LIGHT IN REACH. DUE MEDS GIVEN ORDERED GT SITE CLEAN DRY NO BLEEDING NOTED ON JEVITY 1.2 AT 60CC/HR WELL TOLERATED NO RESIDUAL NOTED .TURNED AND REPOSITION HOB ELEVATED AT ALL TIMES FOR ASPIRATION PRECAUTION.KEPT PTS CLEAN DRY AND COMFORTABLE.WILL CONTINUE TO MONITOR
[2019-07-19 20:00] VITALS: BP 142/87
[2019-07-20] VITALS: BP 129/72
[2019-07-20 04:00] VITALS: BP 141/79
[2019-07-20] MEDS: MUPIROCIN OINT 2% 22 GM TUBE TP SCH ×2 (04:29→16:46)
[2019-07-20] MEDS: MEROPENEM 1 G in IV NS 0.9% 100 ML IV SCH ×2 (05:18→18:01)
--- NOTE | 2019-07-20 06:29 | NUR ---
ORTHOPEDIC CODER NOTES PTS IN BED,REMAINS ON VENTILATOR ,NO SOB NO DISTRESS NOTED , NO CORA NOTED AT THIS TIME , CONTINUE ON GT FEEDING WELL TOLERATED. WILL ENDORSE TO RN DAY SHIFT FOR CONTINUITY OF CARE.
[2019-07-20 06:35] LABS: CALCIUM, SERUM 7.7 mg/dL (8.5-10.1); CREATININE 1.2 mg/dL (0.6-1.3)
[2019-07-20 08:00] VITALS: BP 138/84
[2019-07-20 12:00] VITALS: BP 154/83
[2019-07-20] MEDS: JEVITY 1.2 CAL 1,000 ML BOTTLE GT PRN (14:35)
[2019-07-20 16:00] VITALS: BP 144/85
[2019-07-20] MEDS: VANCOMYCIN 500 MG in IV D5W 100ml IV SCH (16:34)
--- NOTE | 2019-07-20 17:15 | NUR ---
MACHINE LAY OUT WORKER NOTES CLOSING PATIENT IN BED, FAMILY MEMBER AT BEDSIDE. NO SOB OR DISCOMFORT NOTED AT THIS TIME. ALL NEEDS ATTENDED. NO MAJOR CHANGES DURING SHIFT. CALL LIGHT WITHIN REACH BED AT THE LOWEST POSITION LOCKED. ENDORSED TO WARPER FIXER NURSE FOR CORA.
--- NOTE | 2019-07-20 19:35 | NUR ---
SLUDGE MILL OPERATOR OPENING NOTES RECEIVED PATIENT FROM MORNING SHIFT, OBTUNDED FAMILY ON BEDSIDE. TRACHEOSTOMY INTACT AND PATENT, BREATHING REGULAR AND UNLABORED ON MECHANICAL VENTILATION. VENT SETTINGS TOLERATING WELL. RIGHT UPPER ARM PICC LINE PATENT AND INTACT, FLUSHING WELL WITH NO BLEEDING OR S/S OF INFILTRATION NOTED. GTUBE INTACT WITH ON-GOING FEEDING TOLERATING WELL, NO RESIDUAL ASPIRATED. MULLEN CATH INTACT DRAINING CLEAR YELLOW URINE WITH MODERATE AMOUNT ON BAG. ON CARDIAC MONITORING WITH NSR AT 84bpm. ON CONTACT ISOLATION FOR MRSA NARES, PROPER HAND WASHING AND ISOLATION PRECAUTION OBSERVED. NO S/S OF PAIN/DISCOMFORT NOTED OF THE TIME. BED LOW AND LOCKED ON SEMI FOWLERS POSITION. CALL LIGHT IN REACH. WILL CONTINUE TO MONITOR.
[2019-07-20 20:00] VITALS: BP 150/69
--- NOTE | 2019-07-20 23:00 | NUR ---
PRINTED CIRCUIT BOARDS CONTACT PRINTER NOTES WOUND TREATMENTS PROVIDED, PHOTO TAKEN ATTACHED TO CHART.
[2019-07-21] VITALS (8 sets, daily range): BP systolic 128–169; BP diastolic 80–100
[2019-07-21] MEDS: MUPIROCIN OINT 2% 22 GM TUBE TP SCH ×2 (03:40→16:29)
[2019-07-21] MEDS: MEROPENEM 1 G in IV NS 0.9% 100 ML IV SCH ×2 (05:20→17:32)
--- NOTE | 2019-07-21 05:42 | NUR ---
RT Pt received trached on mechanical ventilation with noted settings. Pt is awake but does not follow commands. Vent is plugged into red outlet. No SOB or respiratory distress noted. Addendum: 07/21/19 at 0543 by ANGELLA RASCON RT Amended: Links added.
[2019-07-21] MEDS: JEVITY 1.2 CAL 1,000 ML BOTTLE GT PRN (06:13)
[2019-07-21 06:25] LABS: BASOPHILS % (AUTO) 0.6 % (0.0-2.0); EOSINOPHILS % (AUTO) 5.9 % (0.0-6.0); HEMATOCRIT 25 % (39-51); HEMOGLOBIN 8.1 g/dL (13.5-17.5); LYMPHOCYTES # (AUTO) 1.3 /CMM (0.8-4.8); LYMPHOCYTES % (AUTO) 22.4 % (20.0-44.0); MEAN CORPUSCULAR HGB CONC 32 g/dl (31.0-36.0); MEAN CORPUSCULAR VOLUME 89 fL (80-96); MONOCYTES # (AUTO) 0.7 /CMM (0.1-1.30); MONOCYTES % (AUTO) 12.4 % (2.0-12.0); NEUTROPHILS # (AUTO) 3.3 /CMM (1.8-8.9); NEUTROPHILS % (AUTO) 58.7 % (43.0-81.0); PLATELET COUNT (AUTO) 323 /CMM (150-450); RED BLOOD CELL COUNT(AUTO) 2.82 MIL/uL (4.5-6.0); WHITE BLOOD COUNT (AUTO) 5.7 K/uL (4.3-11.0)
[2019-07-21 06:31] LABS: ALBUMIN 1.8 g/dL (3.4-5.0); BILIRUBIN,TOTAL 0.2 mg/dL (0.2-1.0); CALCIUM, SERUM 7.9 mg/dL (8.5-10.1); CREATININE 1.2 mg/dL (0.6-1.3); MAGNESIUM 1.7 mg/dL (1.8-2.4); PHOSPHORUS 2.4 mg/dL (2.5-4.9); POTASSIUM 3.8 mmol/L (3.5-5.1); TOTAL PROTEIN, SERUM 6.8 g/dL (6.4-8.2)
--- NOTE | 2019-07-21 06:35 | NUR ---
NETWORKING TECHNOLOGY INSTRUCTOR CLOSING NOTES PATIENT IN BED OBTUNDED. TRACHEOSTOMY INTACT AND PATENT, BREATHING REGULAR AND UNLABORED ON MECHANICAL VENTILATION. VENT SETTINGS TOLERATING WELL. RIGHT UPPER ARM PICC LINE PATENT AND INFUSING WELL. GTUBE INTACT WITH ON-GOING FEEDING TOLERATING WELL. MULLEN CATH INTACT DRAINING CLEAR YELLOW URINE WITH 500CC OUTPUT. MAINTAINED ON CARDIAC MONITORING WITH NSR AT 85bpm. ON CONTACT ISOLATION FOR MRSA NARES, PROPER HAND WASHING AND ISOLATION PRECAUTION OBSERVED. NO S/S OF PAIN/DISCOMFORT NOTED THE WHOLE SHIFT. BED LOW AND LOCKED ON SEMI FOWLERS POSITION. CALL LIGHT IN REACH. WILL ENDORSE TO MORNING SHIFT FOR CORA.
--- NOTE | 2019-07-21 07:30 | NUR ---
RN OPENING NOTE: RECEIVED PATIENT IN BED THIS MORNING. PATIENT IS OBTUNDED. PATIENT HAS TRACH, TOLERATING SETTINGS WELL, NO RESPIRATORY DISTRESS NOTED. PICC LINE AT BLANCA, FLUSHIN WELL, SITE C/D/I. NO SIGNS OF COMPLICATION NOTED. PATIENT HAS GT, TOLERATING SETTINGS WELL, SITE CLEAN AND DRY, NO RESIDUAL. MULLEN CATHETER INTACT, DRAINING YELLOW, CLEAR URINE. PATIENT ON TELE MONITOR, SR. CONTACT PRECAUTIONS FOR MRSA OF NARES. SAFETY MEASURES IMPLEMENTED. BED IN LOWEST POSITION, LOCKED, SIDE RAILS UP X2, CALL LIGHT WITHIN REACH. WILL CONTINUE TO MONITOR PATIENT FOR ANY CHANGES.
[2019-07-21] MEDS: Magnesium 1GM/D5W 100ML PREMIX 100 ML IV SCH ×2 (09:29→10:30)
[2019-07-21] MEDS ORDERED: NEUTRA PHOS 1 POWD.PACKET GT ONE (10:00)
[2019-07-21] MEDS ORDERED: JEVITY 1.2 CAL 1,000 ML BOTTLE GT PRN (11:00)
[2019-07-21] MEDS: VANCOMYCIN 500 MG in IV D5W 100ml IV SCH (11:44)
[2019-07-21] MEDS: PROSOURCE / PROSTAT (PYXIS) 30 ML UDC GT SCH ×2 (11:46→16:29)
[2019-07-21] MEDS ORDERED: LORAZEPAM 1 MG TABLET GT PRN (12:00)
[2019-07-21] MEDS ORDERED: IPRATROPIUM NEB FS 0.5 MG/2.5 ML AMPUL.NEB IH PRN (12:00)
[2019-07-21] MEDS: METFORMIN 500 MG TABLET GT SCH ×2 (12:57→21:13)
[2019-07-21] MEDS: IPRATROPIUM NEB FS 0.5 MG/2.5 ML AMPUL.NEB IH SCH ×3 (13:48→23:55)
[2019-07-21] MEDS ORDERED: EPOETIN ALFA (10,000 UNIT) 10,000 UNIT/ML VIAL SQ SCH (17:00)
--- NOTE | 2019-07-21 19:06 | NUR ---
RN CLOSING NOTE: PATIENT IS CURRENTLY RESTING IN BED. NO ACUTE DISTRESS NOTED. PATIENT RECEIVED ATIVAN PER MD ORDER FOR SEIZURE. VSS. PATIENT NEEDS HAVE BEEN MET. TELE MONITOR SINUS TACHY. ENDORSED TO ONCOMING SHIFT FOR CONTINUITY OF CARE AND TO F/U WITH WOUND/PLASTIC SURGERY CONSULT. SAFETY MEASURES HAVE BEEN IMPLEMENTED. BED IN LOWEST POSITION, LOCKED, SIDE RAILS UP X2, CALL LIGHT WITHIN REACH.
--- NOTE | 2019-07-21 19:30 | NUR ---
RN OPENING NOTES RECEIVED PATIENT FROM DAY SHIFT NURSE. PATIENT OBTUNDED AT BASELINE. CHRONIC TRACH ON MECHANICAL VENTILATOR. BLANCA PICC PATENT AND INTACT, FREE FROM ANY S/S OF INFILTRATION OR PHLEBITIS. GT PATENT AND INTACT, MINIMAL GASTRIC RESIDUALS NOTED THIS TIME. TELMETRY MONITORING SHOWS SINUS TACHYCARDIA, HR CURRENTLY 134 BPM . MULLEN CATHETER PATENT AND INTACT, DRAINING CLEAR YELLOW URINE TO BAG. ISOLATION PRECAUTIONS OBSERVED, WILL MONITOR PATIENT CLOSELY TRACHEOSTOMY INTACT AND PATENT, BREATHING REGULAR AND UNLABORED ON MECHANICAL VENTILATION. VENT SETTINGS TOLERATING WELL. RIGHT UPPER ARM PICC LINE PATENT AND INTACT, FLUSHING WELL WITH NO BLEEDING OR S/S OF INFILTRATION NOTED. GTUBE INTACT WITH ON-GOING FEEDING TOLERATING WELL, NO RESIDUAL ASPIRATED. MULLEN CATH INTACT DRAINING CLEAR YELLOW URINE WITH MODERATE AMOUNT ON BAG. ON CARDIAC MONITORING WITH NSR AT 84bpm. ON CONTACT ISOLATION FOR MRSA NARES, PROPER HAND WASHING AND ISOLATION PRECAUTION OBSERVED. NO S/S OF PAIN/DISCOMFORT NOTED OF THE TIME. BED LOW AND LOCKED ON SEMI FOWLERS POSITION. CALL LIGHT IN REACH. WILL CONTINUE TO MONITOR.
[2019-07-21] MEDS: METOPROLOL TARTRATE 50 MG TABLET GT SCH (20:13)
[2019-07-21] MEDS: LEVETIRACETAM SOL (5 ML) 100 MG/ML UDC GT SCH (21:13)
[2019-07-21] MEDS: INSULIN GLARGINE, 100 UNIT/ML CARTRIDGE SQ SCH (21:14)
--- NOTE | 2019-07-21 22:00 | NUR ---
RN NOTES FAMILY MEMBER AT BEDSIDE, UPDATE GIVEN. WILL CONTINUE TO CLOSELY MONITOR
[2019-07-22] VITALS: BP 102/61
[2019-07-22 04:00] VITALS: BP 101/60
--- NOTE | 2019-07-22 04:00 | NUR ---
RN NOTES FULL BED BATH RENDERED, WOUND CAR PERFORMED PRESCRIBED, PATIENT TOLERATED WELL, ONGOING MONITORING
[2019-07-22] MEDS: MUPIROCIN OINT 2% 22 GM TUBE TP SCH ×2 (04:41→16:00)
[2019-07-22] MEDS: VANCOMYCIN 500 MG in IV D5W 100ml IV SCH ×2 (05:17→23:14)
[2019-07-22] MEDS: JEVITY 1.2 CAL 1,000 ML BOTTLE GT PRN (05:17)
[2019-07-22] MEDS: METFORMIN 500 MG TABLET GT SCH ×3 (05:51→21:40)
[2019-07-22] MEDS: IPRATROPIUM NEB FS 0.5 MG/2.5 ML AMPUL.NEB IH SCH ×4 (06:23→23:18)
[2019-07-22] MEDS: MEROPENEM 1 G in IV NS 0.9% 100 ML IV SCH ×2 (06:58→17:58)
--- NOTE | 2019-07-22 07:00 | NUR ---
RN CLOSING NOTES PATIENT RESTING IN BED, APPEASR COMFORTABLE, NO FACIAL GRIMACE. NO ACUTE CHANGES THROUGHOUT THE SHIFT. WILL ENDORSE THE PATIENT TO THE AM SHIFT NURSE FOR CONTINUITY OF CARE
--- NOTE | 2019-07-22 07:10 | NUR ---
NET FISHER NOTES RECEIVED PT IN BED OBTUNDED. NO S/S OF RESPIRATORY DISTRESS TRACH AND VENT TOLERATING SETTINGS ORDERED NO ACUTE PAIN NOTED. ST ON THE MONITOR 110-140. MULLEN CATH DRAINING CLEAR YELLOW URINE TO GRAVITY. GTF JEVITY 1.2@60 ML/HR NO RESIDUAL NOTED TOLERATING WELL. BLANCA PICC TKO.SAFETY AND ASPIRATION PRECAUTIONS IN PLACE BED IN LOW LOCKED POSITION ISOLATION PROTOCOL FOR MRSA NARES. WILL CONT TO MONITOR ACCORDINGLY
[2019-07-22 07:31] LABS: CALCIUM, SERUM 8.1 mg/dL (8.5-10.1); CREATININE 1.2 mg/dL (0.6-1.3); POTASSIUM 3.2 mmol/L (3.5-5.1)
[2019-07-22 07:36] LABS: MAGNESIUM 2.2 mg/dL (1.8-2.4); PHOSPHORUS 2.8 mg/dL (2.5-4.9)
--- NOTE | 2019-07-22 07:45 | NUR ---
WOUND ASSESSED WITH PIPER. CLEAN EDGES NO DRAINAGE OR FEEDING NOTED. GI TO BE CONTACTED FOR WOUND CARE AND F/U
--- NOTE | 2019-07-22 07:55 | NUR ---
GARBAGE COLLECTOR DRIVER GARBAGE COLLECTOR DRIVER SPOKE TO SURGEON DR CARLSON TO CLARIFY POST OP ABDOMINAL CLOSURE OF [facility] WOUND TREATMENT ORDERS. PER SURGEON, CLEANSE WITH NS, PAT DRY, GENTLY PLACE XEROFORM GAUZE TO THE WOUND BED, COVER WITH 4X4 GAUZE AND SECURE WITH PAPER TAPE DAILY AND PRN SOILING. DRESSING CHANGE DONE BY ME TODAY AT BEDSIDE WITH PRIMARY NURSE, POST OP PHOTO TAKEN AND PLACED IN CHART.
--- NOTE | 2019-07-22 07:58 | NUR ---
RT Pt received trached on mechanical ventilation with noted settings. Pt responds to stimuli when suctioned. Vent is plugged into red outlet. No SOB or respiratory distress noted. Addendum: 07/22/19 at 0821 by ANGELLA RASCON RT Amended: Links added.
[2019-07-22 08:00] VITALS: BP 126/68
[2019-07-22] MEDS: LEVETIRACETAM SOL (5 ML) 100 MG/ML UDC GT SCH ×2 (08:39→21:41)
[2019-07-22] MEDS: PROSOURCE / PROSTAT (PYXIS) 30 ML UDC GT SCH ×2 (08:39→17:18)
[2019-07-22] MEDS: METOPROLOL TARTRATE 50 MG TABLET GT SCH ×2 (08:40→21:41)
--- NOTE | 2019-07-22 10:45 | NUR ---
V/R BACK ORDER FROM SANNA RICKETTS TO GIVE K CLOR 40 MEQ VIA GT FOR K+ 3.2
[2019-07-22] MEDS ORDERED: POTASSIUM CHLORIDE 20 MEQ POWDER PACKET GT ONE (11:00)
[2019-07-22 12:00] VITALS: BP 127/76
--- NOTE | 2019-07-22 14:35 | NUR ---
ORDERED SPECIALTY MATTRESS PER WOUND RN . EVS STATES THEY ARE UNAVAILABLE. PER WOUND RN TO ORDER [facility]
[2019-07-22 16:00] VITALS: BP 105/62
--- NOTE | 2019-07-22 16:15 | NUR ---
BED BATH GIVEN WOUND AND ORAL CARE RENDERED
--- NOTE | 2019-07-22 17:00 | NUR ---
CENTRAL LINE DRESSING CHANGED D/T DRESSING SOILED
--- NOTE | 2019-07-22 19:02 | NUR ---
RN NOTES PT REMAINED AFEBRILE THROUGHOUT SHIFT. ALL NEEDS MET WILL ENDORSE TO NOC
--- NOTE | 2019-07-22 19:10 | NUR ---
RN OPENING NOTES: RECEIVED PT IN BED, OBTUNDED. ON PORTEX 7 TOLERATING SETTINGS WELL. SHOWING ST/SR ON TELE MONITOR. HAS MULLEN CATH. ON GT FEEDING OF JEVITY 1.2 AT 60ML/HR TOLERATING WELL. HAS BLANCA PICC W/ TKO RUNNING. BED IN LOWEST AND LOCKED POSITION. WILL CONTINUE TO MONITOR.
[2019-07-22 20:00] VITALS: BP 133/78
[2019-07-22] MEDS: INSULIN GLARGINE, 100 UNIT/ML CARTRIDGE SQ SCH (21:44)
[2019-07-23] VITALS: BP 102/62
[2019-07-23] MEDS: JEVITY 1.2 CAL 1,000 ML BOTTLE GT PRN (01:57)
[2019-07-23 04:00] VITALS: BP 129/70
[2019-07-23] MEDS: MUPIROCIN OINT 2% 22 GM TUBE TP SCH ×2 (04:30→16:27)
[2019-07-23] MEDS: METFORMIN 500 MG TABLET GT SCH ×2 (05:07→13:55)
[2019-07-23] MEDS: MEROPENEM 1 G in IV NS 0.9% 100 ML IV SCH (05:07)
[2019-07-23 06:30] LABS: CALCIUM, SERUM 8.3 mg/dL (8.5-10.1); CREATININE 1.2 mg/dL (0.6-1.3); POTASSIUM 3.8 mmol/L (3.5-5.1)
--- NOTE | 2019-07-23 06:49 | NUR ---
RN CLOSING NOTES: PT RESTING IN BED, OBTUNDED. ON TRACH & VENT TOLERATING SETTINGS WELL. NO ACUTE CHANGES OR DISTRESS NOTED DURING SHIFT. BED IN LOWEST AND LOCKED POSITION, CALL LIGHT WITHIN REACH. WILL ENDORSE TO AM NURSE.
[2019-07-23] MEDS: IPRATROPIUM NEB FS 0.5 MG/2.5 ML AMPUL.NEB IH SCH ×2 (07:45→11:44)
[2019-07-23 08:00] VITALS: BP 120/50
[2019-07-23] MEDS: METOPROLOL TARTRATE 50 MG TABLET GT SCH (10:25)
[2019-07-23] MEDS: LEVETIRACETAM SOL (5 ML) 100 MG/ML UDC GT SCH (10:25)
[2019-07-23] MEDS: PROSOURCE / PROSTAT (PYXIS) 30 ML UDC GT SCH (10:25)
[2019-07-23] MEDS ORDERED: MERO1VIA3 IV (10:39)
[2019-07-23] MEDS ORDERED: VANC1PLA9 IV (10:39)
[2019-07-23 12:01] VITALS: BP 129/64
[2019-07-23 14:58] LABS: BASOPHILS % (AUTO) 0.3 % (0.0-2.0); EOSINOPHILS % (AUTO) 5.4 % (0.0-6.0); HEMATOCRIT 26 % (39-51); LYMPHOCYTES # (AUTO) 1.7 /CMM (0.8-4.8); LYMPHOCYTES % (AUTO) 22.1 % (20.0-44.0); MEAN CORPUSCULAR HGB CONC 31 g/dl (31.0-36.0); MEAN CORPUSCULAR VOLUME 89 fL (80-96); MONOCYTES # (AUTO) 0.8 /CMM (0.1-1.30); MONOCYTES % (AUTO) 10.4 % (2.0-12.0); NEUTROPHILS # (AUTO) 4.8 /CMM (1.8-8.9); NEUTROPHILS % (AUTO) 61.8 % (43.0-81.0); PLATELET COUNT (AUTO) 389 /CMM (150-450); RED BLOOD CELL COUNT(AUTO) 2.88 MIL/uL (4.5-6.0); WHITE BLOOD COUNT (AUTO) 7.8 K/uL (4.3-11.0)
--- NOTE | 2019-07-23 16:34 | NUR ---
RN CLOSING NOTES RECEIVED PT IN BED, OBTUNDED. ON PORTEX 7 TOLERATING SETTINGS WELL. SHOWING ST/SR ON TELE MONITOR. HAS MULLEN CATH. ON GT FEEDING OF JEVITY 1.2 AT 60ML/HR TOLERATING WELL. HAS BLANCA PICC W/ TKO RUNNING. PATIENT IS BEING TRANSPORTED TO [facility] REPORT GIVEN TO CALVIN. PATIENT ROOM 23B. DISCHARGE PAPER WORK SIGN PICTURES TAKEN. TRANSPORT TOOK OVER CARE . ALL PAPER WORK GIVEN TO RT AND TRANSPORT TEAM.
[2019-07-23 16:39] LABS: EOSINOPHILS % (MANUAL) 3 % (0-4); LYMPHOCYTES % (MANUAL) 13 % (16-48); MONOCYTES % (MANUAL) 9 % (0-11.0); NEUTROPHILS % (MANUAL) 75 (42-76)
[2019-07-23] MEDS ORDERED: EPOETIN ALFA (10,000 UNIT) 10,000 UNIT/ML VIAL SQ SCH (17:00)
== END 2019-07-23 16:11 | DRG 326 ==
LOC: ER 15:33 → MEDSG1 17:04 → TELE1 17:13
PROVIDERS: ADMIT Internal Medicine; ATTEND Nurse Practitioner Acute Care
PROC: 5A1955Z Respiratory Ventilation, Greater than 96 Consecutive Hours (ICD-10-PCS; principal; 2019-07-16)
PROC: 30233N1 Transfusion of Nonautologous Red Blood Cells into Peripheral Vein, Percutaneous Approach (ICD-10-PCS; 2019-07-16)
PROC: 0DQ60ZZ Repair Stomach, Open Approach (ICD-10-PCS; 2019-07-18)
DX: K94.22 Gastrostomy infection (principal); L89.153 Pressure ulcer of sacral region, stage 3; L89.323 Pressure ulcer of left buttock, stage 3; L89.313 Pressure ulcer of right buttock, stage 3; N17.0 Acute kidney failure with tubular necrosis; K31.6 Fistula of stomach and duodenum; T81.30XA Disruption of wound, unspecified, initial encounter; G93.1 Anoxic brain damage, not elsewhere classified; Z99.11 Dependence on respirator [ventilator] status; L03.311 Cellulitis of abdominal wall; J96.11 Chronic respiratory failure with hypoxia; D62 Acute posthemorrhagic anemia; G40.909 Epilepsy, unspecified, not intractable, without status epilepticus; Z86.73 Personal history of transient ischemic attack (TIA), and cerebral infarction without residual deficits; Y83.8 Other surgical procedures as the cause of abnormal reaction of the patient, or of later complication, without mention of misadventure at the time of the procedure; Y92.129 Unspecified place in nursing home as the place of occurrence of the external cause; E11.22 Type 2 diabetes mellitus with diabetic chronic kidney disease; E78.5 Hyperlipidemia, unspecified; N18.9 Chronic kidney disease, unspecified; Z79.4 Long term (current) use of insulin; D63.8 Anemia in other chronic diseases classified elsewhere; I12.9 Hypertensive chronic kidney disease with stage 1 through stage 4 chronic kidney disease, or unspecified chronic kidney disease; M24.574 Contracture, right foot; M24.575 Contracture, left foot; I25.10 Atherosclerotic heart disease of native coronary artery without angina pectoris; R13.10 Dysphagia, unspecified
CPT/HCPCS: 31720; 36415; 36600; 71045-TC; 80048-TC; 80053-TC; 80202-TC; 82803-TC; 82962-TC; 83735-TC; 84100-TC; 85025-TC; 85610-TC; 85730-TC; 86850-TC; 86921-TC; 87081-TC; 94003-TC; 94760-TC; 94762-TC; 94799-TC; A4623; A6253; A6403; A9563; G0378; J0885; J1815; J1953; J2060; J2185; J2704; J3370; J3475; J3480; J3490; J7030; J7040; J7050; J7060; P9016-BL

== ENCOUNTER 2019-09-07 15:36 | Inpatient (IN) | payer MEDICARE, OTHER ==
[~2019-09-07] VITALS: Ht 162.6 cm; Wt 68.9 kg
[~2019-09-07 15:36] MED LIST changes: -ACET-2605 GT; +EPOE1VIA6 SQ; +FERR300L GT; -LACT-96 GT; +MERO1VIA23 IV; +NUT.237L31 GT; -SENN-168 GT; +SENN-261 GT; +VANC1PLA9 IV
--- NOTE | 2019-09-07 15:50 | NUR ---
BIB [facility] FOR LOW H&H. TACHYCARDIA AND FEVER ALSO ENDORSED. PATIENT NON-VERBAL. TOLERATING CURRENT VENT SETTINGS. NEEDS ATTENDED, KEPT COMFORTABLE.
[2019-09-07] MEDS ORDERED: CHLO118L6 TP (15:52)
[2019-09-07] MEDS ORDERED: OMEG1600 GT (15:52)
[2019-09-07 16:17] LABS: BASOPHILS # (AUTO) 0.1 /CMM (0.0-0.2); BASOPHILS % (AUTO) 0.5 % (0.0-2.0); EOSINOPHILS % (AUTO) 1.1 % (0.0-6.0); LYMPHOCYTES % (AUTO) 8.9 % (20.0-44.0); MEAN CORPUSCULAR HGB CONC 31 g/dl (31.0-36.0); MEAN CORPUSCULAR VOLUME 85 fL (80-96); MONOCYTES # (AUTO) 0.9 /CMM (0.1-1.30); MONOCYTES % (AUTO) 8.2 % (2.0-12.0); NEUTROPHILS # (AUTO) 8.7 /CMM (1.8-8.9); NEUTROPHILS % (AUTO) 81.3 % (43.0-81.0); PLATELET COUNT (AUTO) 684 /CMM (150-450); RED BLOOD CELL COUNT(AUTO) 2.14 MIL/uL (4.5-6.0); WHITE BLOOD COUNT (AUTO) 10.7 K/uL (4.3-11.0)
[2019-09-07 16:29] LABS: APPEARANCE,URINE SL CLOUDY (CLEAR); BILIRUBIN,URINE NEGATIVE (NEGATIVE); BLOOD, URINE MODERATE Ery/uL (NEGATIVE); COLOR,URINE YELLOW (YELLOW); KETONES,URINE NEGATIVE (NEGATIVE); LEUKOCYTE ESTERASE ,URINE TRACE (NEGATIVE); NITRITE, URINE POSITIVE (NEGATIVE); PROTEIN,URINE 100 mg/dl (NEGATIVE); UGLUCOSE NEGATIVE (NEGATIVE); UROBILINOGEN,URINE 0.2 EU/dL (0.2)
[2019-09-07] MEDS ORDERED: IV NS 0.9% 500 ML BAG IV ONE (16:30)
[2019-09-07] MEDS ORDERED: PIPERACILLIN /TAZOBACTAM 3.375 G in IV D5W 50 ML IV ONE (16:30)
[2019-09-07] MEDS ORDERED: ACETAMINOPHEN 650 MG/SUPP.RECT RC ONE ×2 (16:30→16:35)
[2019-09-07] MEDS ORDERED: VANCOMYCIN 1 GM in IV D5W 250 ML IV ONE (16:30)
[2019-09-07 16:33] LABS: HEMATOCRIT 18 % (39-51); HEMOGLOBIN 5.6 g/dL (13.5-17.5)
[2019-09-07 16:40] LABS: PHOSPHORUS 3.7 mg/dL (2.5-4.9)
[2019-09-07 16:49] LABS: BACTERIA,URINE 4+ /HPF (None Seen); SQUAMOUS EPITHELIAL CELL,UR 0-2 /HPF (None Seen); YEAST,URINE Many /HPF (None Seen)
[2019-09-07 16:55] LABS: CREATININE 1.5 mg/dL (0.6-1.3); POTASSIUM 3.5 mmol/L (3.5-5.1)
[2019-09-07 16:57] LABS: BAND % (MANUAL) 1 % (0.0-5.0); EOSINOPHILS % (MANUAL) 1 % (0-4); LYMPHOCYTES % (MANUAL) 12 % (16-48); MONOCYTES % (MANUAL) 5 % (0-11.0); NEUTROPHILS % (MANUAL) 81 (42-76)
[2019-09-07 17:01] LABS: ALBUMIN 1.5 g/dL (3.4-5.0); BILIRUBIN,DIRECT 0.1 mg/dL (0.0-0.2); BILIRUBIN,TOTAL 0.1 mg/dL (0.2-1.0); TOTAL PROTEIN, SERUM 7.3 g/dL (6.4-8.2)
[2019-09-07] MEDS ORDERED: IOHEXOL-300 100 ML VIAL IV ONE (17:09)
[2019-09-07] MEDS ORDERED: CT SWABBABLE VALVE TRANS SET 1 EA INFUS.SET MC ONE (17:09)
[2019-09-07] MEDS ORDERED: IV NS 0.9% 250 ML IV ONE (17:09)
--- NOTE | 2019-09-07 17:42 | NUR ---
PAGED [facility].
--- NOTE | 2019-09-07 17:57 | NUR ---
CALLED NURSING SUP FOR TELE BED.
[2019-09-07] MEDS ORDERED: NA PHOS,M-B/NA PHOS,DI-BA 1 EA ENEMA RC PRN (18:30)
[2019-09-07] MEDS ORDERED: GLUCERNA 1.5 1,000 ML BOTTLE GT SCH (18:30)
[2019-09-07] MEDS ORDERED: METOCLOPRAMIDE HCL 10 MG TABLET GT PRN (18:30)
[2019-09-07] MEDS ORDERED: MAGNESIUM HYDROXIDE 30 ML UDC GT PRN (18:30)
[2019-09-07] MEDS ORDERED: DEXTROSE 50%-WATER 50 ML DISP.SYRIN IV PRN (18:30)
[2019-09-07] MEDS ORDERED: LORAZEPAM 1 MG TABLET GT PRN (18:30)
[2019-09-07] MEDS ORDERED: IPRATROPIUM NEB FS 0.5 MG/2.5 ML AMPUL.NEB IH PRN (18:30)
[2019-09-07] MEDS ORDERED: ACETAMINOPHEN 160 MG/5 ML GT PRN (18:30)
[2019-09-07] MEDS ORDERED: BISACODYL SUPP (10 MG) 10 MG/SUPP.RECT SUPP.RECT RC PRN (18:30)
--- NOTE | 2019-09-07 18:36 | NUR ---
NURSING SUP GAVE TELE BED 319.
--- NOTE | 2019-09-07 18:42 | NUR ---
BLOOD TRANSFUSION STARTED, VERIFIED BY 2 RN'S.
--- NOTE | 2019-09-07 18:57 | NUR ---
VITALS STABLE, WITH NO ADVERSE REACTION.
--- NOTE | 2019-09-07 19:32 | NUR ---
REPORT GIVEN TO TREVOR GARRIDO FOR CORA.
[2019-09-07] MEDS ORDERED: FEE PK DOSING 1 MIN EA MC ONE (19:38)
[2019-09-07 20:00] VITALS: BP 131/76
[2019-09-07 20:11] VITALS: BP 131/76
[2019-09-07 20:15] VITALS: BP 131/76
--- NOTE | 2019-09-07 20:20 | NUR ---
ORTHOTIC ASSISTANTOUTBOUND TELEMARKETING REPRESENTATIVE NOTE RECEIVED PATIENT VIA GURNEY, TRANSFERRED TO BED. PATIENT IS OBTUNDED. NONVERBAL, DOES NOT FOLLOW SIMPLE COMMANDS. ON A MECHANICAL VENTILATOR, PORTEX#7. RESPIRATIONS 34. O2 SAT 100%. NO S/S PAIN AT THIS TIME. EXTERNAL TELE MONITOR READ SINUS TACH 144. IN NO APPARENT DISTRESS. IV ACCESS IN BLANCA PICC LINE 3 LUMEN, 2 LINES SHOWING RESISTANCE, MIDDLE LINE FLUSHED WITHOUT RESISTANCE. MULLEN CATHETER IS PRESENT, URINE IS YELLOW AND SLIGHTLY CLOUDY, DRAINING TO GRAVITY. GTUBE IS PRESENT, ASPIRATED 10ML, FLUSHED WITH 60ML WITH NO RESISTANCE. FLOW MATCH SOFA CUTTER COMPLETED BELONGINGS LIST AND OBTAINED VITAL SIGNS. TEMPERATURE 103.2, PLACED ICE BAGS ON PATIENT MADE NEWS PRODUCTION ASSISTANT AWARE OF HIGH HR AND TEMP. BED IS LOW AND LOCKED, HOB ELEVATED IN HIGH FOWLERS, SIDE RIALS UP X2, BED ALARM ON. CALL LIGHT WITHIN REACH. WILL CONTINUE TO MONITOR.
--- NOTE | 2019-09-07 20:51 | NUR ---
rn notes: contacted hospitalist nurse transition, spoked with carlos peterson director of scout work, relayed result of pt's vital signs t 103.2, hr 150, rr 24, spo2 100%, 131/76, recheck temp is 103.0 latest hr 149, on sinus tachycardia hr 149, cooling measures provided, relayed to director of scout work about meds received in er. also informed director of scout work there is admit to order yet. per director of scout work she will call dr berger made him aware of the situation, for now place pt on isolation r/o covid for now, and she will call me back for updates.
--- NOTE | 2019-09-07 20:56 | NUR ---
rn notes: received call from [facility] hospitalist emissions engineer, stated she spoked with dr berger, and accd to dr berger/ "pt not a covid candidate, as he knows pt from the snf, and fever and tachycardia most likely from sepsis and uti". per [facility] hospitalist, to do precautionary measures for pt and place her on isolation. telephone order received to give 1L ns bolus. Order read back , verified and carried out.
[2019-09-07] MEDS: SENNOSIDES 8.6 MG TABLET GT SCH (21:18)
[2019-09-07] MEDS: LEVETIRACETAM SOL (5 ML) 100 MG/ML UDC GT SCH (21:18)
[2019-09-07] MEDS ORDERED: MAGNESIUM HYDROXIDE 30 ML UDC PO PRN (21:30)
[2019-09-07] MEDS ORDERED: Z GUARD REMEDY 2 OZ OINT TP PRN (21:30)
[2019-09-07] MEDS ORDERED: ACETAMINOPHEN 325 MG TABLET PO PRN (21:30)
[2019-09-07] MEDS ORDERED: MAG HYDROX/AL HYDROX/SIMETH 30 ML UDC PO PRN (21:30)
[2019-09-07] MEDS ORDERED: ONDANSETRON HCL/PF 4 MG/2 ML VIAL IVP PRN (21:30)
[2019-09-07] MEDS ORDERED: IV NS 0.9% 1,000 ML IV ONE (21:30)
[2019-09-07] MEDS ORDERED: HYDROCODONE/APAP 5/325MG 1 EACH TABLET PO PRN (21:30)
--- NOTE | 2019-09-07 21:31 | NUR ---
rn notes: hospitalist gibran peterson currently in the unit, dr celine cummins order for covid testing, pt will be rule out covid, to be transfer to [facility] covid unit. verified with hospitalist carlos, will be transferring pt r/o covid now, contacted rn madhu bedoya, relayed situation, per rn sup to call [facility] manager of internal, called [facility] unfortunately charge preparation technician unavailable, per administrative secretary dannie will call us back.
[2019-09-07] MEDS: BLOOD SUGAR DIAGNOSTIC 1 EACH STRIP VI SCH (21:34)
[2019-09-07 21:41] VITALS: BP 130/85
[2019-09-07] MEDS: INSULIN GLARGINE, 100 UNIT/ML CARTRIDGE SQ SCH (22:00)
--- NOTE | 2019-09-07 22:16 | NUR ---
911 telecommunicator note accu check reads blood sugar 124. no insulin regular coverage provided. held lantus 80 units d/t patient gtube feeding has not been started and gtube feeding is only 35ml/hr.
[2019-09-07] MEDS: GLUCERNA 1.2 1,000 ML BOTTLE NG PRN (22:19)
[2019-09-07 22:40] LABS: CREATINE KINASE, TOTAL 96 U/L (39-308); FERRITIN 988 ng/mL (8-388)
[2019-09-07] MEDS: IV NS 0.9% 1,000 ML IV SCH (22:55)
--- NOTE | 2019-09-07 23:08 | NUR ---
telephone operator receptionist giuliana cole from lab called to report a critical report of lactic acid 2.4. will call md applications chemist to report. will continue to monitor.
--- NOTE | 2019-09-07 23:14 | NUR ---
telecine operator note called [facility] to have registration rep Kayla avila NP return call for critical lab. awaiting md call
[2019-09-07] MEDS ORDERED: IBUPROFEN 600 MG TABLET PO PRN (23:30)
--- NOTE | 2019-09-07 23:45 | NUR ---
SUPERVISOR POULTRY PROCESSING NOTE TRANSFERRED PATIENT TO [facility] D/T R/O COVID-19 TO ROOM 117-2. ALL BELONGS, MEDICATIONS AND CHART TRANSFERRED WITH PATIENT. GAVE BESIDE REPORT TO SARAH GARRIDO. INFORMED HIM THAT I WAS AWAITING MD ANUP OLSON, SADA CALL FOR THE LACTIC ACID 2.4 BUT SHE CALLED PATIENT WAS BEING TRANSFERRED.
[2019-09-08] VITALS (13 sets, daily range): BP systolic 113–141; BP diastolic 58–90
[2019-09-08] MEDS ORDERED: PIPERACILLIN /TAZOBACTAM 2.25 G VIAL IV ONE (00:11)
--- NOTE | 2019-09-08 00:14 | NUR ---
TELE-1/PHARMACEUTICAL OFFICER PT SWABBED FOR COVID AND RESPIRATORY VIRUSES. SPECIMEN SENT TO LAB. PT TOLERATED WELL. WILL CONTINUE TO MONITOR.
[2019-09-08 00:29] LABS: C-REACTIVE PROTEIN 23.3 mg/dL (0.0-0.9)
[2019-09-08] MEDS: PIPERACILLIN /TAZOBACTAM 2.25 G in IV D5W 50 ML IV SCH ×5 (00:53→23:05)
[2019-09-08] MEDS: IPRATROPIUM NEB FS 0.5 MG/2.5 ML AMPUL.NEB IH SCH ×4 (01:30→19:30)
--- NOTE | 2019-09-08 05:54 | NUR ---
RT NOTES PT RECEIVED TRACHED ON CHARTED SETTINGS. NO SOB NOTED THROUGHOUT SHIFT. AIRWAY PATENT AND SECURED. CATEGORY PLANNER DONE. PT SUCTIONED. HHN AEROSOL TX NOT GIVEN DUE TO PENDING COVID-19 TEST RESULT, RN AWARE. ALARMS SET AND AUDIBLE. AMBUBAG AT BEDSIDE. VENT PLUGGED IN RED OUTLET. Addendum: 09/08/19 at 0611 by NIDIA MUIR RT Amended: Links added.
[2019-09-08 06:43] LABS: BASOPHILS % (AUTO) 0.5 % (0.0-2.0); EOSINOPHILS % (AUTO) 1.6 % (0.0-6.0); LYMPHOCYTES # (AUTO) 1.3 /CMM (0.8-4.8); LYMPHOCYTES % (AUTO) 13.6 % (20.0-44.0); MEAN CORPUSCULAR HGB CONC 33 g/dl (31.0-36.0); MEAN CORPUSCULAR VOLUME 85 fL (80-96); MONOCYTES # (AUTO) 0.9 /CMM (0.1-1.30); MONOCYTES % (AUTO) 8.8 % (2.0-12.0); NEUTROPHILS # (AUTO) 7.4 /CMM (1.8-8.9); NEUTROPHILS % (AUTO) 75.5 % (43.0-81.0); PLATELET COUNT (AUTO) 449 /CMM (150-450); RED BLOOD CELL COUNT(AUTO) 2.25 MIL/uL (4.5-6.0); WHITE BLOOD COUNT (AUTO) 9.8 K/uL (4.3-11.0)
[2019-09-08 07:01] LABS: HEMATOCRIT 19 % (39-51); HEMOGLOBIN 6.4 g/dL (13.5-17.5)
[2019-09-08 07:05] LABS: CREATININE 1.4 mg/dL (0.6-1.3); MAGNESIUM 1.7 mg/dL (1.8-2.4); PHOSPHORUS 3.6 mg/dL (2.5-4.9); POTASSIUM 3.7 mmol/L (3.5-5.1)
--- NOTE | 2019-09-08 07:30 | NUR ---
RN NOTES RECEIVED PATIENT IN BED RESTING COMFORTABLY IN MODERATE HIGH BACK REST, OBTUNDED, ON MECHANICAL VENT TOLERATING WELL WITH NO SIGNS OF DISTRESS NOTED AT THIS TIME, IV FLUIDS ON BLANCA PICC WITH NS RUNNING @100ML/HR, PATENT AND INTACT, ON GTUBE WITH GLUCERNA RUNNING @35ML/HR. ON ISOLATION PRECAUTION TO RULE OUT COVID, SAFETY MEASURES IN PLACE, BED IN LOWEST LOCKED POSITION WITH SIDE RAILS UP X2. CALL LIGHT WITHIN REACH. WILL CONTINUE TO MONITOR.
--- NOTE | 2019-09-08 07:40 | NUR ---
RN NOTES RECEIVED A CRITICAL VALUE, HGB OF 6.4 AND HCT 19. MD MADE AWARE WITH ORDER OF 1 UNIT PRBC, CALLED LAB AND AWAITING FOR BLOOD, WILL CONTINUE TO MONITOR.
[2019-09-08] MEDS: BLOOD SUGAR DIAGNOSTIC 1 EACH STRIP VI SCH ×4 (08:11→21:49)
[2019-09-08] MEDS: SODIUM CHLORIDE 1000 MG TABLET GT SCH ×3 (08:24→16:41)
[2019-09-08] MEDS: FERROUS SULFATE UDC 300 MG/5 ML UDC GT SCH (08:24)
[2019-09-08] MEDS: LEVETIRACETAM SOL (5 ML) 100 MG/ML UDC GT SCH ×2 (08:24→21:05)
[2019-09-08] MEDS: MULTIVIT W/MINERALS 1 TAB TABLET GT SCH (08:24)
[2019-09-08] MEDS: FAMOTIDINE (20 MG) 20 MG TABLET GT SCH ×2 (08:24→16:41)
[2019-09-08] MEDS: ASCORBIC ACID 500 MG TABLET GT SCH (08:24)
[2019-09-08] MEDS: CHLORHEXIDINE GLUCONATE 15 ML UDC MM SCH ×2 (08:24→16:41)
[2019-09-08] MEDS: DOCUSATE SODIUM LIQ 100 MG/10 ML UDC GT SCH (08:27)
[2019-09-08] MEDS: INSULIN REGULAR, HUMAN 100 UNIT/ML 3 ML VIAL SQ PRN ×3 (08:34→16:54)
[2019-09-08] MEDS: PROSOURCE / PROSTAT (PYXIS) 30 ML UDC GT SCH ×3 (08:36→16:41)
[2019-09-08] MEDS ORDERED: Medication Not On Formulary EA (Omega-3/Dha/Epa/Fish Oil (Fish Oil 1,600 mg/5 ml Liquid) GT SCH (09:00)
[2019-09-08] MEDS ORDERED: PROSTAT (PYXIS) 30 ML UDC GT SCH (09:00)
[2019-09-08] MEDS ORDERED: Medication Not On Formulary EA (Cran/Vitc/Mannose/Inulin/Brom (Uti-Stat Liquid) 30 MG) GT SCH (09:00)
[2019-09-08 11:56] LABS: BAND % (MANUAL) 4 % (0.0-5.0); EOSINOPHILS % (MANUAL) 2 % (0-4); LYMPHOCYTES % (MANUAL) 8 % (16-48); MONOCYTES % (MANUAL) 3 % (0-11.0); NEUTROPHILS % (MANUAL) 83 (42-76)
[2019-09-08] MEDS: IV NS 0.9% 1,000 ML IV SCH ×2 (12:24→21:07)
[2019-09-08] MEDS: Magnesium 1GM/D5W 100ML PREMIX 100 ML IV SCH ×2 (15:24→16:31)
[2019-09-08] MEDS: VANCOMYCIN 1 GM in IV D5W 250 ML IV SCH ×2 (16:42→18:33)
[2019-09-08] MEDS: CHLORHEXIDINE GLUCONATE 4% 118 ML BOTTLE TP SCH (17:42)
[2019-09-08 18:33] LABS: OCCULT BLOOD STOOL NEGATIVE (NEGATIVE)
--- NOTE | 2019-09-08 18:42 | NUR ---
RN NOTES PATIENT IN BED RESTING COMFORTABLY IN MODERATE HIGH BACK REST, OBTUNDED, ON MECHANICAL VENT TOLERATING WELL WITH NO SIGNS OF DISTRESS THROUGHOUT THE SHIFT, IV FLUIDS ON BLANCA PICC WITH NS RUNNING @100ML/HR, PATENT AND INTACT, ON GTUBE WITH GLUCERNA RUNNING @35ML/HR. ON ISOLATION PRECAUTION TO RULE OUT COVID, SAFETY MEASURES IN PLACE, BED IN LOWEST LOCKED POSITION WITH SIDE RAILS UP X2. CALL LIGHT WITHIN REACH. WILL ENDORSE TO HEAD START DIRECTOR NURSE FOR CORA.
--- NOTE | 2019-09-08 19:10 | NUR ---
ON ASSOCIATE AGENT INSURANCE SALES SR 85. ON ISOLATION PRECAUTIONS FOR RULE OUT COVID.
--- NOTE | 2019-09-08 19:10 | NUR ---
BUSINESS ENTERPRISE OFFICER OPENING NOTES RECEIVED PATIENT IN BED HEAD OF BED ELEVATED FOR ASPIRATION PRECAUTIONS, RESPIRATION EVEN AND UNLABORED WITH EQUAL RISE AND FALL OF CHEST, ON MECHANICAL VENTILATION PROPERLY WORKING PLUGGED INTO RED EMERGENCY WITH AUDIBLE ALARMS, SUCTION EQUIPMENT SET UP IN PLACE AMBUBAG PRESENT, CONTINUOS SP02 INTACT AND WNL. APPEARS TO BE FREE OF ANY PAIN OR DISCOMFORT. GTUBE INTACT AND PATENT, FEEDING RUNNING ORDERED, RIGHT UPPER ARM PICC LINE INTACT AND PATENT, NO REDNESS, NO INFILTRATION PRESENT, IVF RUNNING ORDERED, SAFETY PRECAUTIONS RENDERED, LOW BED AND LOCKED, ALL NEEDS ATTENDED WILL CONTINUE TO MONITOR AND ATTEND TO NEEDS.
--- NOTE | 2019-09-08 19:40 | NUR ---
RT NOTES PT RECEIVED TRACHED ON CHARTED SETTINGS. NO SOB NOTED AT THIS TIME. AIRWAY PATENT AND SECURED. STEEL RULE DIE MAKER APPRENTICE DONE. PT SUCTIONED. HHN AEROSOL TX NOT GIVEN DUE TO PENDING COVID-19 TEST RESULT. ALARMS SET AND AUDIBLE. AMBUBAG AT BEDSIDE. VENT PLUGGED IN RED OUTLET. Addendum: 09/09/19 at 0051 by NIDIA MUIR RT Amended: Links added.
[2019-09-08] MEDS: SENNOSIDES 8.6 MG TABLET GT SCH (21:04)
[2019-09-08] MEDS: INSULIN GLARGINE, 100 UNIT/ML CARTRIDGE SQ SCH (22:00)
--- NOTE | 2019-09-08 22:17 | NUR ---
REGULATORY PROCESS MANAGER NOTES PER HOSPITALIST ANUP HOLD LANTUS 80 UNITS AT THIS TIME, CONTINUE TO SLIDING SCALE , ACCUCHECK 221 GT FEEDING AT 35ML/HR
[2019-09-08] MEDS: *INSULIN REGULAR(HUMULIN R)HUM 100 UNIT/ML VIAL SQ PRN (22:36)
[2019-09-09] VITALS (7 sets, daily range): BP systolic 126–148; BP diastolic 67–74
[2019-09-09] MEDS: IPRATROPIUM NEB FS 0.5 MG/2.5 ML AMPUL.NEB IH SCH ×4 (00:55→20:30)
[2019-09-09] MEDS: IV NS 0.9% 1,000 ML IV SCH ×3 (03:43→22:48)
[2019-09-09] MEDS: GLUCERNA 1.2 1,000 ML BOTTLE NG PRN (04:17)
[2019-09-09] MEDS: PIPERACILLIN /TAZOBACTAM 2.25 G in IV D5W 50 ML IV SCH ×3 (05:00→17:24)
--- NOTE | 2019-09-09 06:16 | NUR ---
ETHNOGRAPHER CLOSING NOTES PATIENT IN BED HEAD OF BED ELEVATED FOR ASPIRATION PRECAUTIONS, RESPIRATION EVEN AND UNLABORED WITH EQUAL RISE AND FALL OF CHEST, ON MECHANICAL VENTILATION PROPERLY WORKING PLUGGED INTO RED EMERGENCY WITH AUDIBLE ALARMS, SUCTION EQUIPMENT SET UP IN PLACE AMBUBAG PRESENT, CONTINUOS SP02 INTACT AND WNL. APPEARS TO BE FREE OF ANY PAIN OR DISCOMFORT. GTUBE INTACT AND PATENT, FEEDING RUNNING ORDERED TOLERATES WELL RESIDUALS 0, RIGHT UPPER ARM PICC LINE INTACT AND PATENT, NO REDNESS, NO INFILTRATION PRESENT, DRESSING IS C/D/I. PATIENT REPOSITIONED, WOUND OFFLOADED, ON ISOFLEX MATTRESS, WOUND CARE PROVIDED ORDERED, DRESSINGS REMAIN CLEAN DRY AND INTACT. IVF RUNNING ORDERED, SAFETY PRECAUTIONS RENDERED, LOW BED AND LOCKED, ALL NEEDS ATTENDED WILL CONTINUE TO MONITOR AND ENDORSE TO NEXT SHIFT. NO FURTHER CHANGES NOTES.
--- NOTE | 2019-09-09 06:22 | NUR ---
WOUND CARE CONSULT WOUND CARE RECEIVED CONSULT FOR SACRAL ULCERS AND BILATERAL HEEL ULCERS. WOUND CARE WILL DEFER CONSULT AND ALL TREATMENT PLANS TO PLASTIC SURGICAL TEAM INCLUDING DPM DR ELLIS WHO ARE CURRENTLY FOLLOWING THIS PATIENT. PATIENT WITH ISAC AT 11, ALL PRESSURE ULCER PREVENTION MEASURES ARE NOTED TO BE IN PLACE. PATIENT ON ISOFLEX LOW AIRLOSS SPECIALTY BED. WILL SEE PRN.
[2019-09-09 06:35] LABS: BASOPHILS % (AUTO) 0.6 % (0.0-2.0); EOSINOPHILS % (AUTO) 3.1 % (0.0-6.0); HEMATOCRIT 23 % (39-51); HEMOGLOBIN 7.3 g/dL (13.5-17.5); LYMPHOCYTES # (AUTO) 1.1 /CMM (0.8-4.8); LYMPHOCYTES % (AUTO) 12.6 % (20.0-44.0); MEAN CORPUSCULAR HGB CONC 32 g/dl (31.0-36.0); MEAN CORPUSCULAR VOLUME 85 fL (80-96); MONOCYTES # (AUTO) 0.8 /CMM (0.1-1.30); NEUTROPHILS # (AUTO) 6.5 /CMM (1.8-8.9); NEUTROPHILS % (AUTO) 74.7 % (43.0-81.0); PLATELET COUNT (AUTO) 419 /CMM (150-450); WHITE BLOOD COUNT (AUTO) 8.6 K/uL (4.3-11.0)
[2019-09-09 06:52] LABS: CALCIUM, SERUM 8.1 mg/dL (8.5-10.1); CREATININE 1.1 mg/dL (0.6-1.3); POTASSIUM 3.3 mmol/L (3.5-5.1)
--- NOTE | 2019-09-09 07:30 | NUR ---
RN NOTE RECEIVED PATIENT IN STABLE CONDITION, PT IS OBTUNDED ON VENTILATOR WITH SETTINGS ORDERED, TOLERATING WELL, NO SOB NOTED. O2 SATURATION AT 100%. NO DISTRESS NOTED AT THE MOMENT. PATIENT IS ON TELE MONITOR WITH SR NOTED, HR IN THE 70S. ISOLATION IS OBSERVED FOR R/O OF COVID. IV FLUIDS RUNNING AT ORDERED RATE, NO S/S OF INFECTION NOTED, PATENT AND FLUSHED WELL. G TUBE FEEDING RUNNING AT GOAL RATE, PT TOLERATING WELL, NO RESIDUAL NOTED. SAFETY MAINTAINED, CALL LIGHT WITHIN REACH, WILL CONTINUE TO MONITOR CLOSELY.
[2019-09-09] MEDS: MULTIVIT W/MINERALS 1 TAB TABLET GT SCH (08:07)
[2019-09-09] MEDS: ASCORBIC ACID 500 MG TABLET GT SCH (08:07)
[2019-09-09] MEDS: SODIUM CHLORIDE 1000 MG TABLET GT SCH ×3 (08:08→17:22)
[2019-09-09] MEDS: DOCUSATE SODIUM LIQ 100 MG/10 ML UDC GT SCH (08:08)
[2019-09-09] MEDS: CHLORHEXIDINE GLUCONATE 15 ML UDC MM SCH ×2 (08:08→17:22)
[2019-09-09] MEDS: FAMOTIDINE (20 MG) 20 MG TABLET GT SCH ×2 (08:08→17:22)
[2019-09-09] MEDS: PROSOURCE / PROSTAT (PYXIS) 30 ML UDC GT SCH ×3 (08:08→17:22)
[2019-09-09] MEDS: FERROUS SULFATE UDC 300 MG/5 ML UDC GT SCH (08:08)
[2019-09-09] MEDS: LEVETIRACETAM SOL (5 ML) 100 MG/ML UDC GT SCH ×2 (08:08→21:05)
[2019-09-09] MEDS: BLOOD SUGAR DIAGNOSTIC 1 EACH STRIP VI SCH ×4 (08:09→21:42)
[2019-09-09] MEDS: *INSULIN REGULAR(HUMULIN R)HUM 100 UNIT/ML VIAL SQ PRN ×2 (09:08→23:04)
--- NOTE | 2019-09-09 09:40 | NUR ---
RN NOTES O2 SATURATION AT 100% W/ VENT SETTINGS ORDERED. TOLERATING WELL, NO SOB NOTE. PROSTAT 930AM DOSE WAS HELD BECAUSE THE SCHEDULE OF MED CHANGED TO BID 9AM AND 1700 AND 9AM DOSE WAS ALREADY GIVEN AT 0810,
[2019-09-09] MEDS ORDERED: POTASSIUM CHLORIDE 20 MEQ POWDER PACKET GT ONE (10:00)
[2019-09-09] MEDS ORDERED: POTASSIUM CHLORIDE 20 MEQ TAB.PRT.SR PO SCH ×2 (11:00→12:00)
[2019-09-09] MEDS: POTASSIUM CHLORIDE 20 MEQ POWDER PACKET GT SCH ×2 (11:58→13:31)
--- NOTE | 2019-09-09 12:00 | NUR ---
RN NOTE PT IN STABLE CONDITION. O2 SATURATION AT 99%. PATIENT SAFETY MAINTAINED, CALL LIGHT WITHIN REACH, CONTINUING CARE.
[2019-09-09] MEDS: INSULIN REGULAR, HUMAN 100 UNIT/ML 3 ML VIAL SQ PRN ×2 (12:56→18:06)
[2019-09-09] MEDS: SOD FERRIC GLUC 125 MG in IV NS 0.9% 100 ML IV SCH (13:30)
--- NOTE | 2019-09-09 14:00 | NUR ---
RN NOTE PT IN STABLE CONDITION. O2 SATURATION AT 100%. PATIENT SAFETY MAINTAINED, CALL LIGHT WITHIN REACH, CONTINUING CARE.
--- NOTE | 2019-09-09 16:00 | NUR ---
RN NOTE PT IN STABLE CONDITION. O2 SATURATION AT 100%. PATIENT SAFETY MAINTAINED, CALL LIGHT WITHIN REACH, CONTINUING CARE.
--- NOTE | 2019-09-09 17:16 | NUR ---
TALKED TO SANNA FROM PHARMACY, HOLD VANCO UNTIL VANCO TROUGH LEVELS ARE RESULTED. VANCO SCHEDULED FOR 1700, HOLDING FOR NOW.
[2019-09-09] MEDS: VANCOMYCIN 1 GM in IV D5W 250 ML IV SCH (17:25)
--- NOTE | 2019-09-09 18:00 | NUR ---
RN NOTE PT IN STABLE CONDITION. O2 SATURATION AT 100%. PATIENT SAFETY MAINTAINED, CALL LIGHT WITHIN REACH, CONTINUING CARE.
--- NOTE | 2019-09-09 18:06 | NUR ---
RN NOTE SPOKE TO SANNA FROM PHARMACY, VANCOMYCIN WAS DC, DID NOT ADMINISTER, MED RETURNED TO THE MED ROOM IN PATIENT CASETTE.
[2019-09-09] MEDS ORDERED: FEE PK DOSING 1 MIN EA MC ONE (18:16)
--- NOTE | 2019-09-09 18:56 | NUR ---
RN CLOSING NOTES PATIENT REMAINED IN STABLE CONDITION, PATIENT SAFETY WAS MAINTAINED, REMAINED ON SAME VENT SETTINGS TOLERATING WELL. COVID RESULTS ARE STILL PENDING, ISOLATION WAS OBSERVED. ALL SCHEDULED MEDS WERE GIVEN ON TIME, PATIENT SAFETY MAINTAINED, CALL LIGHT WITHIN REACH, ENDORSED TO PM NURSE TO CONTINUE CARE.
--- NOTE | 2019-09-09 19:25 | NUR ---
CSM CONSULTANT OPENING NOTES PATIENT IN STABLE CONDITION, TOLERATING VENT SETTINGS WELL, NO S/S OF ACUTE RESPIRATORY DISTRESS OR PAIN NOTED. TELE MONITOR READING SINUS RHYTHM, HEART RATE 92. PICC LINE PRESENT ON RIGHT UPPER ARM WITH NS RUNNING AT 100 ML/HR. GTUBE INTACT & PATENT, GLUCERNA RUNNING AT 65 ML/HR. SAFETY MEASURES IN PLACE. BED LOCKED, ALARM ON, SIDE RAILS X2, CALL LIGHT WITHIN REACH. WILL CONTINUE TO MONITOR.
[2019-09-09] MEDS: GENTAMICIN IV SCH (20:53)
[2019-09-09] MEDS: D5W IV SCH (20:53)
[2019-09-09] MEDS: SENNOSIDES 8.6 MG TABLET GT SCH (21:05)
[2019-09-09] MEDS: INSULIN GLARGINE, 100 UNIT/ML CARTRIDGE SQ SCH (22:00)
--- NOTE | 2019-09-09 22:36 | NUR ---
RT NOTE Pt rec'd trached on [facility] vent on AC mode on settings as charted. Pt shows no signs of resp distress or sob. Trach is patent and secured. sx'd for thick mod amt of yellow secretions. Alarms are set and audible, Vent plugged into red outlet. Ambu bag bedside. Will continue to monitor closely Addendum: 09/09/19 at 2238 by REBA WALKER RT Amended: Links added.
--- NOTE | 2019-09-09 22:48 | NUR ---
SITE HEAD NOTES PATIENT'S BLOOD SUGAR 179. 3 UNITS OF REGULAR INSULIN HS GIVEN. HELD SCHEDULED DOSE OF LANTUS 80 UNITS. PATIENT ON CONTINUOUS GTUBE FEEDING WITH GLUCERNA AT 65 ML/HR.
[2019-09-10] MEDS: GLUCERNA 1.2 1,000 ML BOTTLE NG PRN (00:15)
[2019-09-10 01:00] VITALS: BP 140/74
[2019-09-10] MEDS: IPRATROPIUM NEB FS 0.5 MG/2.5 ML AMPUL.NEB IH SCH ×4 (01:30→20:30)
[2019-09-10 05:00] VITALS: BP 152/78
[2019-09-10] MEDS: INSULIN REGULAR, HUMAN 100 UNIT/ML 3 ML VIAL SQ PRN ×2 (06:17→14:03)
[2019-09-10 06:42] LABS: CALCIUM, SERUM 7.9 mg/dL (8.5-10.1); GENTAMICIN,RANDOM 7.6 ug/ml (4.0-8.0); POTASSIUM 3.8 mmol/L (3.5-5.1)
--- NOTE | 2019-09-10 06:58 | NUR ---
7571 PAGED MD LUBRICATION TECHNICIAN TO REPORT PATIENT'S HR IN THE 150-160S. PATIENT NOTED WITH GEN BODY SHAKING. VITAL SIGNS TAKEN FOLLOWS BP 165/45, HR 160S, RR 30S, TEMP. 98.6 O2 SAT. 100%. SUCTIONED BY HEMA JAIN WITH SMALL AMOUNT OF TRACHEAL SECRETIONS. NO SIGNS OF RESPIRATORY DISTRESS. PRN ATIVAN ADMINISTERED ORDERED. AWAITING CALL BACK FROM MD.
[2019-09-10 07:09] LABS: BASOPHILS % (AUTO) 0.4 % (0.0-2.0); EOSINOPHILS % (AUTO) 1.8 % (0.0-6.0); HEMATOCRIT 24 % (39-51); HEMOGLOBIN 7.7 g/dL (13.5-17.5); LYMPHOCYTES % (AUTO) 11.5 % (20.0-44.0); MEAN CORPUSCULAR HGB CONC 32 g/dl (31.0-36.0); MEAN CORPUSCULAR VOLUME 86 fL (80-96); MONOCYTES # (AUTO) 0.7 /CMM (0.1-1.30); MONOCYTES % (AUTO) 7.4 % (2.0-12.0); NEUTROPHILS # (AUTO) 7.1 /CMM (1.8-8.9); NEUTROPHILS % (AUTO) 78.9 % (43.0-81.0); PLATELET COUNT (AUTO) 507 /CMM (150-450)
--- NOTE | 2019-09-10 07:10 | NUR ---
1118 PAGED MD TECHNICIAN AGAIN AT THIS TIME. PATIENT'S HR IN THE 150S. O2 SATURATION AT 98%. NO SIGNS OF DISTRESS NOTED. PRIMARY RN AT BEDSIDE.
--- NOTE | 2019-09-10 07:25 | NUR ---
ROOTER OPERATOR NOTES RECEIVED TELEPHONE ORDERS FROM DR. GRULLON FOR 1MG ATIVAN PRN Q6H
[2019-09-10] MEDS: BLOOD SUGAR DIAGNOSTIC 1 EACH STRIP VI SCH ×4 (07:31→21:24)
[2019-09-10] MEDS ORDERED: LORAZEPAM INJ 2 MG/ML VIAL IV PRN (07:35)
--- NOTE | 2019-09-10 07:41 | NUR ---
JOB MOLDER CLOSING NOTES TELE MONITOR READING SINUS TACH, HEART RATE 129. PATIENT'S O2 SAT 98%. NO SIGNS OF DISTRESS NOTED. ENDORSED TO DAY SHIFT NURSE PLAN OF CARE.
--- NOTE | 2019-09-10 07:50 | NUR ---
RN OPENING NOTES: RECEIVED PATIENT IN BED THIS MORNING. PATIENT IS CURRENTLY RESTING IN BED. NO SIGNS OF ACUTE DISTRESS NOTED, NURSE INFORMED ME OF EPILEPTIC EPISODE AT THE END OF LATIN AMERICAN STUDIES DIRECTOR. PATIENT ON VENT, TOLERATING SETTINGS WELL, SATING WELL, NO SIGNS OF RESPIRATORY DISTRESS NOTED. PATIENT ON TELE MONITOR, SINUS VTACH 127. PATIENT HAS A PICC LINE AT [facility], C/D/I, FLUSHING WELL, NO SIGNS OF COMPLICATIONS NOTED. GT INTACT, PATENT, NO RESIDUAL, [employer] RN STOPPED FEEDING IN CASE OF MEDS THAT NEED TO BE GIVEN, WILL RESTART TF (GLUCERNA 1.2 AT 60CC/HR). SAFETY MEASURES IMPLEMENTED, BED IN LOWEST POSITION, LOCKED, SIDE RAILS UP X2, CALL LIGHT WITHIN REACH. WILL CONTINUE TO MONITOR PATIENT FOR CHANGES.
[2019-09-10 08:00] VITALS: BP 139/81
[2019-09-10 08:00] LABS: LYMPHOCYTES % (MANUAL) 9 % (16-48); NEUTROPHILS % (MANUAL) 83 (42-76)
[2019-09-10 08:01] LABS: BAND % (MANUAL) 2 % (0.0-5.0); MONOCYTES % (MANUAL) 4 % (0-11.0)
[2019-09-10 08:02] LABS: METAMYELOCYTES % 1 % (0-0); MYELOCYTES % 1 % (0-0)
--- NOTE | 2019-09-10 08:12 | NUR ---
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 DUE TO PENDING COVID-19 RESULTS, HOLD BACTROBAN UNTIL RESULTS ARE NEGATIVE. ALSO INFORMED MD ABOUT CXR RESULTS AND THE SUGGESTIONS FROM RESULTS TO ADVANCE PICC LINE 8CM TO DESIRES LOCATION. MD AWARE. NNO AT THIS TIME.
--- NOTE | 2019-09-10 09:30 | NUR ---
TUBE FEEDING STARTED, PATIENT ASPIRATED ON TUBE FEEDING. RESPIRATORY ARRIVED TO SUCTION PATIENT. WILL START TF AND MONITOR PATIENT FOR ASPIRATION AT A LATER TIME.
[2019-09-10] MEDS: CHLORHEXIDINE GLUCONATE 15 ML UDC MM SCH ×2 (09:31→17:34)
[2019-09-10] MEDS: MULTIVIT W/MINERALS 1 TAB TABLET GT SCH (09:32)
[2019-09-10] MEDS: SODIUM CHLORIDE 1000 MG TABLET GT SCH ×3 (09:32→17:34)
[2019-09-10] MEDS: ASCORBIC ACID 500 MG TABLET GT SCH (09:32)
[2019-09-10] MEDS: FAMOTIDINE (20 MG) 20 MG TABLET GT SCH ×2 (09:32→17:34)
[2019-09-10] MEDS: DOCUSATE SODIUM LIQ 100 MG/10 ML UDC GT SCH (09:32)
[2019-09-10] MEDS: LEVETIRACETAM SOL (5 ML) 100 MG/ML UDC GT SCH ×2 (09:32→21:04)
[2019-09-10] MEDS: PROSOURCE / PROSTAT (PYXIS) 30 ML UDC GT SCH ×2 (09:38→17:34)
[2019-09-10] MEDS: IV NS 0.9% 1,000 ML IV SCH ×2 (09:40→20:16)
[2019-09-10 12:00] VITALS: BP 130/76
[2019-09-10] MEDS: SOD FERRIC GLUC 125 MG in IV NS 0.9% 100 ML IV SCH (14:02)
[2019-09-10 16:00] VITALS: BP 144/82
[2019-09-10] MEDS: *INSULIN REGULAR(HUMULIN R)HUM 100 UNIT/ML VIAL SQ PRN (18:37)
--- NOTE | 2019-09-10 18:57 | NUR ---
RN CLOSING NOTE: PATIENT REMAINS IN BED, NO SIGNS OF ACUTE DISTRESS NOTED, NO SIGNS OF RESPIRATORY DISTRESS NOTED. PATIENT ON TELE MONITOR, SINUS TACH 104. SAFETY MEASURES IMPLEMENTED, BED IN LOWEST POSITION, LOCKED, SIDE RAILS UP X2, CALL LIGHT WITHIN REACH. WILL ENDORSE TO ONCOMING SHIFT RN FOR CONTINUITY OF CARE AND TO REPLACE MULLEN PER ID.
[2019-09-10 20:00] VITALS: BP_SYST 144; BP_DIAS 72; BP_DIAS 84
--- NOTE | 2019-09-10 20:10 | NUR ---
Received report from HEMA Vasquez for [facility]
--- NOTE | 2019-09-10 20:29 | NUR ---
RT NOTE Pt rec'd trached on [facility] vent on AC mode on settings as charted. Pt shows no signs of resp distress or sob. Trach is patent and secured. sx'd for thick mod amt of yellow secretions. Alarms are set and audible. Vent plugged into red outlet. Ambu bag bedside. Will continue to monitor closely Addendum: 09/10/19 at 2029 by REBA WALKER RT Amended: Links added.
[2019-09-10] MEDS: SENNOSIDES 8.6 MG TABLET GT SCH (21:02)
[2019-09-10] MEDS: MUPIROCIN OINT 2% 22 GM TUBE SCH (21:02)
[2019-09-10] MEDS: INSULIN GLARGINE, 100 UNIT/ML CARTRIDGE SQ SCH (21:25)
[2019-09-11] VITALS (7 sets, daily range): BP systolic 118–158; BP diastolic 68–90
[2019-09-11] MEDS: IPRATROPIUM NEB FS 0.5 MG/2.5 ML AMPUL.NEB IH SCH ×4 (02:10→20:07)
[2019-09-11] MEDS: GLUCERNA 1.2 1,000 ML BOTTLE NG PRN (05:09)
[2019-09-11] MEDS: IV NS 0.9% 1,000 ML IV SCH ×2 (05:10→15:48)
[2019-09-11 06:44] LABS: BASOPHILS # (AUTO) 0.1 /CMM (0.0-0.2); BASOPHILS % (AUTO) 0.6 % (0.0-2.0); EOSINOPHILS % (AUTO) 2.4 % (0.0-6.0); HEMATOCRIT 23 % (39-51); HEMOGLOBIN 7.2 g/dL (13.5-17.5); LYMPHOCYTES # (AUTO) 0.9 /CMM (0.8-4.8); LYMPHOCYTES % (AUTO) 9.3 % (20.0-44.0); MEAN CORPUSCULAR HGB CONC 32 g/dl (31.0-36.0); MEAN CORPUSCULAR VOLUME 86 fL (80-96); MONOCYTES # (AUTO) 0.7 /CMM (0.1-1.30); MONOCYTES % (AUTO) 7.6 % (2.0-12.0); NEUTROPHILS # (AUTO) 7.8 /CMM (1.8-8.9); NEUTROPHILS % (AUTO) 80.1 % (43.0-81.0); PLATELET COUNT (AUTO) 431 /CMM (150-450); RED BLOOD CELL COUNT(AUTO) 2.65 MIL/uL (4.5-6.0); WHITE BLOOD COUNT (AUTO) 9.7 K/uL (4.3-11.0)
--- NOTE | 2019-09-11 06:44 | NUR ---
RN CLOSING NOTE: Pt resting in bed, obtunded. [facility], tolerating settings well. No respiratory distress or SOB noted. No acute changes noted during shift. Covid-19 result back, negative. On tele monitor showing SR. GT site patent and flushing, w/ Glucerna 1.2 running at 60cc/hr. BLANCA PICC patent and flushing. Dressing c/d/i. NS running at 100cc/hr. Safety measures in place. Will endorse to AM nurse for CORA.
[2019-09-11 07:04] LABS: CALCIUM, SERUM 8.1 mg/dL (8.5-10.1); CREATININE 0.9 mg/dL (0.6-1.3)
[2019-09-11] MEDS: BLOOD SUGAR DIAGNOSTIC 1 EACH STRIP VI SCH ×4 (07:30→22:03)
[2019-09-11] MEDS ORDERED: POTASSIUM CHLORIDE 20 MEQ POWDER PACKET GT SCH (10:00)
[2019-09-11] MEDS ORDERED: RXGEN XX (10:02)
[2019-09-11] MEDS ORDERED: EPOE40007 IJ (10:02)
[2019-09-11] MEDS ORDERED: FERR300L GT (10:02)
[2019-09-11] MEDS ORDERED: GENT40VI2 IM (10:02)
[2019-09-11] MEDS: POTASSIUM CL. PREMIX PERIPHER. 50 ML IV SCH ×4 (10:06→14:29)
[2019-09-11] MEDS: MUPIROCIN OINT 2% 22 GM TUBE SCH ×2 (10:07→22:01)
[2019-09-11] MEDS: CHLORHEXIDINE GLUCONATE 15 ML UDC MM SCH ×2 (10:07→17:29)
[2019-09-11] MEDS: LEVETIRACETAM SOL (5 ML) 100 MG/ML UDC GT SCH ×2 (10:07→21:59)
[2019-09-11] MEDS: DOCUSATE SODIUM LIQ 100 MG/10 ML UDC GT SCH (10:07)
[2019-09-11] MEDS: MULTIVIT W/MINERALS 1 TAB TABLET GT SCH (10:08)
[2019-09-11] MEDS: FAMOTIDINE (20 MG) 20 MG TABLET GT SCH ×2 (10:08→17:29)
[2019-09-11] MEDS: ASCORBIC ACID 500 MG TABLET GT SCH (10:08)
[2019-09-11] MEDS: SODIUM CHLORIDE 1000 MG TABLET GT SCH ×3 (10:08→17:29)
[2019-09-11] MEDS: PROSOURCE / PROSTAT (PYXIS) 30 ML UDC GT SCH ×2 (10:17→17:30)
[2019-09-11] MEDS: GENTAMICIN IV SCH (10:22)
[2019-09-11] MEDS: D5W IV SCH (10:22)
[2019-09-11] MEDS: *INSULIN REGULAR(HUMULIN R)HUM 100 UNIT/ML VIAL SQ PRN ×3 (10:53→22:16)
[2019-09-11] MEDS ORDERED: CLONIDINE HCL 0.1 MG TABLET PO PRN (14:10)
[2019-09-11] MEDS: INSULIN REGULAR, HUMAN 100 UNIT/ML 3 ML VIAL SQ PRN (14:31)
[2019-09-11] MEDS: SOD FERRIC GLUC 125 MG in IV NS 0.9% 100 ML IV SCH (14:44)
[2019-09-11] MEDS ORDERED: ALTEPLASE 100 MG in WATER FOR INJECTION,STERILE 100 ML IV ONE (15:30)
[2019-09-11] MEDS ORDERED: ALTEPLASE CATHFLO 2 MG/VIAL IV ONE (15:30)
--- NOTE | 2019-09-11 18:05 | NUR ---
PATIENT IN BED, OBTUNDED, OPEN EYES, ON VENT, TOLERATING CURRENT SETTINGS WELL, NO SIGNS OF RESPIRATORY DISTRESS NOTED. SZ precautions in place. No SZ activity NOTED DURING SHIFT. NOTED SOFT BULGE TO RIGHT ANTEROLATERAL HEAD. TRIPLE LUMEN PICC TO BLANCA WITH ONLY ONE PORT PATENT WAS REMOVED AND REPLACED. PICC NURSE INSERTED NEW DOUBLE LUMEN PICC READY FOR USE AND WORKING WELL. G-TUBE IN PLACE RUNNING GLUCERNA 1.2 @ 60 ML/HR. NO RESIDUAL NOTED THROUGHOUT SHIFT. MULLEN IN PLACE AND INTACT DRAINING CLEAR BHATTI COLORED URINE. MD AWARE. ALL SAFETY PRECAUTIONS IN PLACE AND MAINTAINED WITH BED IN LOWEST POSITION, CALL LIGHT WITHIN REACH, SIDE RAILS UP, LOCKED. SIDE RAILS PADDED. PATIENT WAS KEPT CLEAN AND DRY THROUGHOUT THE SHIFT. PT SAFETY MAINTAINED DURING SHIFT. SBAR REPORT GIVEN TO HEMA BROWNING FOR CONTINUITY OF CARE.
[2019-09-11] MEDS: CHLORHEXIDINE GLUCONATE 4% 118 ML BOTTLE TP SCH (18:30)
--- NOTE | 2019-09-11 19:28 | NUR ---
RN NOTES PATIENT HAS BEEN ENDORSED TO NIGHTSHIFT RN FOR CORA
--- NOTE | 2019-09-11 19:30 | NUR ---
PRODUCTION CONTROL COORDINATOR OPENING NOTES RECEIVED PATIENT ISOLATION FOR MRSA NARES. PATIENT IN BED. OBTUNDED, NONVERBAL. ON MECHANICAL VENTILATOR WITH PORTEX #7, AC 18, TV 500, FIO2 40% PEEP 5. EXTERNAL TELE MONITOR READS SINUS RHYTHM HR 64. IN NO APPARENT DISTRESS. IV ACCESS IN BLANCA PICC LINE RUNNING NS@100ML/HR, GTUBE IS PRESENT RUNNING GLUCERNA @60ML/HR. MULLEN CATHETER IS PRESENT, DRAINING TO GRAVITY, URINE IS HEMATURIA PER REPORT MD AWARE.
[2019-09-11] MEDS: SENNOSIDES 8.6 MG TABLET GT SCH (21:59)
[2019-09-11] MEDS: INSULIN GLARGINE, 100 UNIT/ML CARTRIDGE SQ SCH (22:15)
--- NOTE | 2019-09-11 23:11 | NUR ---
RT NOTE PT RECEIVED TRACHED ON MECHANICAL VENTILATION. AMBU BAG @ BEDSIDE. TX GIVEN, NO ADVERSE REACTIONS NOTED. SX DONE, TRACH SECURED AND PATENT. NO DISTRESS NOTED. CONT. PULSE OX CONNECTED. WILL MONITOR T/O SHIFT. Addendum: 09/11/19 at 2314 by STACY BERUMEN RT Amended: Links added.
[2019-09-12] VITALS (9 sets, daily range): BP systolic 122–158; BP diastolic 56–86
[2019-09-12] MEDS: IV NS 0.9% 1,000 ML IV SCH (01:19)
[2019-09-12] MEDS: GLUCERNA 1.2 1,000 ML BOTTLE NG PRN (01:19)
[2019-09-12] MEDS: IPRATROPIUM NEB FS 0.5 MG/2.5 ML AMPUL.NEB IH SCH ×3 (02:03→14:14)
[2019-09-12 06:18] LABS: BASOPHILS # (AUTO) 0.1 /CMM (0.0-0.2); BASOPHILS % (AUTO) 0.7 % (0.0-2.0); EOSINOPHILS % (AUTO) 2.9 % (0.0-6.0); HEMATOCRIT 21 % (39-51); LYMPHOCYTES % (AUTO) 11.3 % (20.0-44.0); MEAN CORPUSCULAR HGB CONC 32 g/dl (31.0-36.0); MEAN CORPUSCULAR VOLUME 86 fL (80-96); MONOCYTES # (AUTO) 0.7 /CMM (0.1-1.30); MONOCYTES % (AUTO) 8.3 % (2.0-12.0); NEUTROPHILS # (AUTO) 6.8 /CMM (1.8-8.9); NEUTROPHILS % (AUTO) 76.8 % (43.0-81.0); PLATELET COUNT (AUTO) 408 /CMM (150-450); RED BLOOD CELL COUNT(AUTO) 2.45 MIL/uL (4.5-6.0); WHITE BLOOD COUNT (AUTO) 8.9 K/uL (4.3-11.0)
--- NOTE | 2019-09-12 06:20 | NUR ---
CLIENT INTEGRATION MANAGER CLOSING NOTES PATIENT ON ISOLATION FOR MRSA NARES. PATIENT IN BED. OBTUNDED, NONVERBAL. REMAINS ON MECHANICAL VENTILATOR WITH PORTEX #7, AC 18, TV 500, FIO2 40% PEEP 5. EXTERNAL TELE MONITOR READS SINUS RHYTHM HR 64. NO DISTRESS NOTED. IV ACCESS MAINTAINED IN BLANCA PICC LINE RUNNING NS@100ML/HR, GTUBE IS MAINTAINED RUNNING GLUCERNA 1.2 @60ML/HR. MULLEN CATHETER IS MAINTAINED, DRAINING TO GRAVITY, URINE IS HEMATURIA, OUTPUT 1150ML. PERFORMED WOUND CARE. BED IS LOW AND LOCKED, HOB ELEVATED IN SEMI FOWLERS, SIDE RIALS UP X2, BED ALARM ON, EXTREMITIES OF LOADED, TURNED Q2HR. CALL LIGHT WITHIN REACH. WILL ENDORSE TO NEXT SHIFT.
[2019-09-12 06:31] LABS: CALCIUM, SERUM 8.3 mg/dL (8.5-10.1); POTASSIUM 3.1 mmol/L (3.5-5.1)
[2019-09-12 06:35] LABS: HEMOGLOBIN 6.7 g/dL (13.5-17.5)
--- NOTE | 2019-09-12 06:40 | NUR ---
PLANT ENGINEERING SUPERVISOR NOTE 0635 RECEIVED A CALL FROM LAB TO REPORT A CRITICAL LAB FOR HEMOGLOBIN OF 6.7. WILL NOTIFY VENETIAN BLIND MECHANIC HERMANN SHULTZ NP. 0637 SPOKE WITH [email or web address], THEY WILL DISPATCH CALL TO SADA MCCRARY TO GET IN CONTACT. 0640 NOTIFIED SADA MCCRARY THAT PATIENTS HAS CRITICAL LAB OF HGB IS 6.7, ALSO PATIENT CURRENTLY HAS HEMATURIA. TELEPHONE ORDERED 1 UNIT PRBC, ORDER READ BACK, NOTED AND CARRIED OUT.
[2019-09-12 07:15] LABS: EOSINOPHILS % (MANUAL) 2 % (0-4); LYMPHOCYTES % (MANUAL) 6 % (16-48); MONOCYTES % (MANUAL) 15 % (0-11.0); NEUTROPHILS % (MANUAL) 77 (42-76)
[2019-09-12] MEDS: BLOOD SUGAR DIAGNOSTIC 1 EACH STRIP VI SCH ×2 (07:30→12:06)
--- NOTE | 2019-09-12 08:00 | NUR ---
PUBLIC HEALTH ASSISTANT OPENING NOTES Received Patient resting in bed. Obtunded. VS stable with no acute distress. Breathing even and unlabored on trachea and vent with no respiratory distress. No signs and symptoms of pain. Telemonitor in place and patent reading SR with HR-80. BLANCA PICC line clean, intact, patent and flushing well with NS infusing at 100ml/hr. Bush Cath in place and patent with hematuria noted. Kendal SHULTZ aware. GTube in place and patent with Glucerna 1.2 infusing at 60ml/hr. Isolation precautions in place. Safety precautions in place. Bed locked and set to lowest position with side rails x 2 up. All needs rendered at this time. Call light within reach. Will continue to monitor.
[2019-09-12] MEDS: LEVETIRACETAM SOL (5 ML) 100 MG/ML UDC GT SCH (08:31)
[2019-09-12] MEDS: DOCUSATE SODIUM LIQ 100 MG/10 ML UDC GT SCH (08:31)
[2019-09-12] MEDS: FAMOTIDINE (20 MG) 20 MG TABLET GT SCH (08:32)
[2019-09-12] MEDS: PROSOURCE / PROSTAT (PYXIS) 30 ML UDC GT SCH (08:32)
[2019-09-12] MEDS: CHLORHEXIDINE GLUCONATE 15 ML UDC MM SCH (08:32)
[2019-09-12] MEDS: MUPIROCIN OINT 2% 22 GM TUBE SCH (08:32)
[2019-09-12] MEDS: MULTIVIT W/MINERALS 1 TAB TABLET GT SCH (08:32)
[2019-09-12] MEDS: ASCORBIC ACID 500 MG TABLET GT SCH (08:32)
[2019-09-12] MEDS: SODIUM CHLORIDE 1000 MG TABLET GT SCH ×2 (08:32→12:33)
[2019-09-12] MEDS: INSULIN REGULAR, HUMAN 100 UNIT/ML 3 ML VIAL SQ PRN ×2 (08:41→12:34)
[2019-09-12] MEDS ORDERED: IV NS 0.9% 1,000 ML IV PRN (09:09)
[2019-09-12] MEDS ORDERED: POTASSIUM CHLORIDE 20 MEQ POWDER PACKET GT SCH (10:30)
[2019-09-12] MEDS: SOD FERRIC GLUC 125 MG in IV NS 0.9% 100 ML IV SCH (15:34)
--- NOTE | 2019-09-12 16:25 | NUR ---
CLAIM BENEFIT SPECIALIST NOTES Patient discharged for [facility] at this time. Patient in stable condition. VS stable with no acute distress. Breathing even and unlabored on trachea and vent with no respiratory distress. No signs and symptoms of pain. Skin assessment photos and placed in chart. Medication reconciliation and discharge orders reviewed and explained to Patient. Patient obtunded unable to comprehend. Patient will follow up with PCP. All belongings with Patient. Patient picked up by Ambulance. Report given to Michelle GARRIDO.
== END 2019-09-12 16:40 | DRG 870 ==
LOC: ER 15:40 → TELE 18:37 → TELE1 23:49
PROVIDERS: ADMIT Internal Medicine; ATTEND Internal Medicine
PROC: 5A1955Z Respiratory Ventilation, Greater than 96 Consecutive Hours (ICD-10-PCS; principal; 2019-09-07)
PROC: 30233N1 Transfusion of Nonautologous Red Blood Cells into Peripheral Vein, Percutaneous Approach (ICD-10-PCS; 2019-09-07)
PROC: 02HV33Z Insertion of Infusion Device into Superior Vena Cava, Percutaneous Approach (ICD-10-PCS; 2019-09-11)
PROC: B548ZZA Ultrasonography of Superior Vena Cava, Guidance (ICD-10-PCS; 2019-09-11)
DX: A41.9 Sepsis, unspecified organism (principal); G93.41 Metabolic encephalopathy; N17.0 Acute kidney failure with tubular necrosis; R53.2 Functional quadriplegia; N39.0 Urinary tract infection, site not specified; J95.851 Ventilator associated pneumonia; D68.59 Other primary thrombophilia; J98.11 Atelectasis; J96.10 Chronic respiratory failure, unspecified whether with hypoxia or hypercapnia; Z99.11 Dependence on respirator [ventilator] status; K92.2 Gastrointestinal hemorrhage, unspecified; I31.3 Pericardial effusion (noninflammatory); E11.9 Type 2 diabetes mellitus without complications; I25.10 Atherosclerotic heart disease of native coronary artery without angina pectoris; Z86.73 Personal history of transient ischemic attack (TIA), and cerebral infarction without residual deficits; Z93.1 Gastrostomy status; E11.22 Type 2 diabetes mellitus with diabetic chronic kidney disease; E86.9 Volume depletion, unspecified; E87.6 Hypokalemia; G40.909 Epilepsy, unspecified, not intractable, without status epilepticus; Z98.890 Other specified postprocedural states; D64.9 Anemia, unspecified; E78.5 Hyperlipidemia, unspecified; Z79.4 Long term (current) use of insulin; M62.462 Contracture of muscle, left lower leg; M62.422 Contracture of muscle, left upper arm; M62.461 Contracture of muscle, right lower leg; M62.421 Contracture of muscle, right upper arm; F09 Unspecified mental disorder due to known physiological condition; I12.9 Hypertensive chronic kidney disease with stage 1 through stage 4 chronic kidney disease, or unspecified chronic kidney disease; I70.0 Atherosclerosis of aorta; R13.10 Dysphagia, unspecified; N18.9 Chronic kidney disease, unspecified; Z86.14 Personal history of Methicillin resistant Staphylococcus aureus infection; Z22.322 Carrier or suspected carrier of Methicillin resistant Staphylococcus aureus; Z87.440 Personal history of urinary (tract) infections; M16.11 Unilateral primary osteoarthritis, right hip; M81.0 Age-related osteoporosis without current pathological fracture; Z87.01 Personal history of pneumonia (recurrent); I34.0 Nonrheumatic mitral (valve) insufficiency; Z93.0 Tracheostomy status; Z79.51 Long term (current) use of inhaled steroids; Z79.899 Other long term (current) drug therapy; Z79.84 Long term (current) use of oral hypoglycemic drugs; L89.626 Pressure-induced deep tissue damage of left heel; L89.616 Pressure-induced deep tissue damage of right heel; E61.1 Iron deficiency; Z87.19 Personal history of other diseases of the digestive system; B96.1 Klebsiella pneumoniae [K. pneumoniae] as the cause of diseases classified elsewhere; D63.8 Anemia in other chronic diseases classified elsewhere; Y84.9 Medical procedure, unspecified as the cause of abnormal reaction of the patient, or of later complication, without mention of misadventure at the time of the procedure; Y82.9 Unspecified medical devices associated with adverse incidents; Y92.129 Unspecified place in nursing home as the place of occurrence of the external cause
CPT/HCPCS: 31720; 36415; 36569; 70450-TC; 71045-TC; 71260-TC; 80048-TC; 80076-TC; 80170-TC; 80202-TC; 81000-TC; 82272-TC; 82550-TC; 82728-TC; 82962-TC; 83540-TC; 83605-TC; 83615-TC; 83690-TC; 83735-TC; 84100-TC; 84484-TC; 85025-TC; 85378-TC; 85730-TC; 86140-TC; 86850-TC; 86921-TC; 87081-TC; 87086-TC; 87186-TC; 93307-TC; 94003-TC; 94760-TC; 94762-TC; 99082-TC; A6403; G0378; J1580; J1815; J1953; J2543; J2916; J2997; J3370; J3475; J3480; J7030; J7040; J7050; J7060; P9016-BL; Q9967

== ENCOUNTER 2019-11-11 18:36 | Inpatient (IN) | payer MEDICARE, OTHER ==
[~2019-11-11] VITALS: Ht 154.9 cm; Wt 54.0 kg
[~2019-11-11 18:36] MED LIST changes: +CHLO118L6 TP; -EPOE1VIA6 SQ; +EPOE40007 IJ; +GENT40VI2 IM; -MERO1VIA23 IV; +OMEG1600 GT; +RXGEN XX; -VANC1PLA9 IV
--- NOTE | 2019-11-11 18:40 | NUR ---
JORGE VALDEZ FROM [facility] FOR LOW HGB=6.3. PATIENT A/OX0, ATTACHED TO THE SUPERVISOR CIGAR PROCESSING. RECTAL TEMP SHOWED 102.4. BLANCA PICC LINE PATENT AND FLUSHING.
[2019-11-11] MEDS ORDERED: IV NS 0.9% 500 ML BAG IV ONE (19:00)
[2019-11-11 19:05] LABS: BASOPHILS # (AUTO) 0.1 /CMM (0.0-0.2); BASOPHILS % (AUTO) 0.8 % (0.0-2.0); EOSINOPHILS % (AUTO) 2.2 % (0.0-6.0); HEMATOCRIT 22 % (39-51); LYMPHOCYTES # (AUTO) 1.5 /CMM (0.8-4.8); LYMPHOCYTES % (AUTO) 10.9 % (20.0-44.0); MEAN CORPUSCULAR HGB CONC 30 g/dl (31.0-36.0); MEAN CORPUSCULAR VOLUME 88 fL (80-96); MONOCYTES # (AUTO) 1.1 /CMM (0.1-1.30); MONOCYTES % (AUTO) 7.7 % (2.0-12.0); NEUTROPHILS % (AUTO) 78.4 % (43.0-81.0); PLATELET COUNT (AUTO) 815 /CMM (150-450)
[2019-11-11 19:07] LABS: HEMOGLOBIN 6.5 g/dL (13.5-17.5)
--- NOTE | 2019-11-11 19:13 | NUR ---
ENDORSED TO CHARITY GARRIDO.
--- NOTE | 2019-11-11 19:16 | NUR ---
FROM [facility] Addendum: 11/11/19 at 1935 by EVICTOR Amendment cristine in EDM - 11/11/19 at 2022 by EVICTOR CENTRAL LINE*
--- NOTE | 2019-11-11 19:17 | NUR ---
TOOK OVER PT CARE. PT ON VENT AC 20, TV 550, O2 40, PEEP 5. PT HAS BLANCA PIC LINE, G TUBE, AND MULLEN. PT APPEARS TO BE CONTRACTED. ON BILINGUAL TRAINER AND PULSE OX. VSS. AWAITING LAB RESULTS.
[2019-11-11 19:21] LABS: CALCIUM, SERUM 8.7 mg/dL (8.5-10.1); CARBON DIOXIDE 25 mmol/L (21-32); CHLORIDE 108 mmol/L (98-107); CREATININE 1.2 mg/dL (0.6-1.3); GLUCOSE 139 mg/dL (74-106); POTASSIUM 4.2 mmol/L (3.5-5.1); SODIUM SERUM 143 mmol/L (136-145); UREA NITROGEN, BLOOD 36 mg/dL (7-18)
[2019-11-11 19:30] LABS: ALANINE AMINOTRANSFERASE 9 U/L (12-78); ALBUMIN 1.7 g/dL (3.4-5.0); ALKALINE PHOSPHATASE 173 U/L (46-116); ASPARTATE AMINOTRANSFERASE 16 U/L (15-37); BILIRUBIN,TOTAL 0.2 mg/dL (0.2-1.0); TOTAL PROTEIN, SERUM 8.4 g/dL (6.4-8.2)
--- NOTE | 2019-11-11 19:33 | NUR ---
PER PT DATA, PT HAS STAGE 4 SACRAL WOUND
--- NOTE | 2019-11-11 19:33 | NUR ---
PT ON CONTACT PRECAUTION FOR CRE AND ESBL
[2019-11-11 19:52] LABS: EOSINOPHILS % (MANUAL) 2 % (0-4); LYMPHOCYTES % (MANUAL) 12 % (16-48); MONOCYTES % (MANUAL) 5 % (0-11.0); NEUTROPHILS % (MANUAL) 81 (42-76)
--- NOTE | 2019-11-11 20:18 | NUR ---
ON THE PHONE WITH PATIENT'S NIECE "OMER NAQVI" FOR BLOOD TRANSFUSION CONSENT. CONSENT GIVEN OVER THE PHONE TO TWO NURSES.
[2019-11-11] MEDS ORDERED: IV NS 0.9% 1,000 ML IV PRN (20:37)
[2019-11-11] MEDS ORDERED: VANCOMYCIN 1 GM VIAL ONE (20:45)
[2019-11-11] MEDS ORDERED: PIPERACILLIN /TAZOBACTAM 3.375 G VIAL IV ONE (20:45)
[2019-11-11] MEDS ORDERED: ACETAMINOPHEN 650 MG/SUPP.RECT RC ONE ×2 (20:46→21:00)
[2019-11-11] MEDS ORDERED: IPRATROPIUM NEB FS 0.5 MG/2.5 ML AMPUL.NEB IH PRN (21:00)
[2019-11-11] MEDS ORDERED: MAGNESIUM HYDROXIDE 30 ML UDC GT PRN (21:00)
[2019-11-11] MEDS ORDERED: MAGNESIUM HYDROXIDE 30 ML UDC PO PRN (21:00)
[2019-11-11] MEDS ORDERED: Z GUARD REMEDY 2 OZ OINT TP PRN (21:00)
[2019-11-11] MEDS ORDERED: BISACODYL SUPP (10 MG) 10 MG/SUPP.RECT SUPP.RECT RC PRN (21:00)
[2019-11-11] MEDS ORDERED: VANCOMYCIN 1 GM in IV D5W 250 ML IV ONE (21:00)
[2019-11-11] MEDS ORDERED: ONDANSETRON HCL/PF 4 MG/2 ML VIAL IVP PRN (21:00)
[2019-11-11] MEDS ORDERED: PIPERACILLIN /TAZOBACTAM 3.375 G in IV D5W 50 ML IV ONE (21:00)
[2019-11-11] MEDS ORDERED: MAG HYDROX/AL HYDROX/SIMETH 30 ML UDC PO PRN (21:00)
[2019-11-11] MEDS ORDERED: ACETAMINOPHEN 160 MG/5 ML GT PRN (21:00)
[2019-11-11] MEDS ORDERED: NA PHOS,M-B/NA PHOS,DI-BA 1 EA ENEMA RC PRN (21:00)
[2019-11-11] MEDS ORDERED: METOCLOPRAMIDE HCL 10 MG TABLET GT PRN (21:00)
--- NOTE | 2019-11-11 21:16 | NUR ---
COVID SWAB SENT TO LAB
--- NOTE | 2019-11-11 21:37 | NUR ---
Blood transfusion initiated.
--- NOTE | 2019-11-11 21:43 | NUR ---
urine sent to lab
[2019-11-11 21:56] LABS: APPEARANCE,URINE Cloudy (CLEAR); BILIRUBIN,URINE Negative (NEGATIVE); BLOOD, URINE Trace-lysed Ery/uL (NEGATIVE); COLOR,URINE Yellow (YELLOW); KETONES,URINE Negative (NEGATIVE); LEUKOCYTE ESTERASE ,URINE Small (NEGATIVE); NITRITE, URINE Negative (NEGATIVE); PH,URINE 8.5 (5.0-8.0); PROTEIN,URINE >=300 mg/dl (NEGATIVE); UGLUCOSE Negative (NEGATIVE); UROBILINOGEN,URINE 0.2 EU/dL (0.2)
[2019-11-11 22:03] LABS: BACTERIA,URINE 2+ /HPF (None Seen); SQUAMOUS EPITHELIAL CELL,UR Few /HPF (None Seen); WBC,URINE 51-80 /HPF (0-3)
--- NOTE | 2019-11-11 22:48 | NUR ---
REPORT GIVEN TO ISSA GARRIDO FOR CORA
[2019-11-11] MEDS ORDERED: INSULIN REGULAR, HUMAN 100 UNIT in IV NS 0.9% 99 ML IV PRN ×2 (23:00)
--- NOTE | 2019-11-11 23:30 | NUR ---
ROUTE SALES TRAINEE ADMITTING NOTE RECEIVED PATIENT FROM ER VIA [facility]; ADMITTING DIAGNOSIS OF GI BLEEDING, R/O COVID19; RESULTS PENDING. PATIENT NON VERBAL AND OBTUNDED. NO S/SX OF ACUTE DISTRESS OR SOB NOTED. PATIENT WITH TRACHEOSTOMY INTACT, CONNECTED TO MECHANICAL VENTILATOR, WITH SETTINGS ORDERED, TOLERATING WELL. PATIENT ON TELE MONITOR READING SINUS TACHY WITH HR AT 100s. NOTED DOUBLE LUMEN PICC LINE AT BLANCA INTACT, FLUSHING AND PATENT. NO S/S OF INFECTION NOTED. WITH ONGOING BLOOD TRANSFUSION OF PACKED RBC, TOLERATING WELL. PATIENT WITH GTUBE DRY AND INTACT. MULLEN CATHETER CONNECTED TO URINE BAG INTACT AND DRAINING TO CLEAR YELLOW URINE. NOTED SACRAL AND RIGHT BUTTOCK WOUNDS, REDNESS OF BILATERAL HEELS, AND SCARRING OF OLD GTUBE SITE, PICTURES TAKEN AND PLACED IN CHART. WOUND CONSULT REQUESTED. PATIENT KEPT CLEAN , DRY AND COMFORTABLE.SAFETY MEASURES HAVE BEEN IMPLEMENTED PER PROTOCOL. PATIENT BED ALARM IS ON. HEAD OF BED ELEVATED. BED IS LOCKED, IN LOWEST POSITION AND SIDE RAILS UPX2. CALL LIGHT WITHIN REACH OF PATIENT. ISOLATION PRECAUTIONS IN PLACE. WILL CONTINUE TO MONITOR AND REASSESS FOR ANY CHANGES. WILL ATTEND TO ALL MD ADMITTING ORDERS.
--- NOTE | 2019-11-11 23:40 | NUR ---
PT TRANSFERED PER ACLS PROTOCOL
[2019-11-11 23:46] VITALS: BP 146/90
[2019-11-12] VITALS (8 sets, daily range): BP systolic 108–143; BP diastolic 64–79
[2019-11-12] MEDS ORDERED: IPRATROPIUM NEB FS 0.5 MG/2.5 ML AMPUL.NEB IH SCH
[2019-11-12] MEDS: IV NS 0.9% 1,000 ML IV SCH ×2 (00:16→10:45)
[2019-11-12] MEDS: LEVETIRACETAM SOL (5 ML) 100 MG/ML UDC GT SCH ×3 (00:44→21:20)
[2019-11-12] MEDS: SENNOSIDES 8.6 MG TABLET GT SCH ×2 (00:44→23:31)
[2019-11-12 04:33] LABS: BASOPHILS # (AUTO) 0.1 /CMM (0.0-0.2); BASOPHILS % (AUTO) 0.5 % (0.0-2.0); EOSINOPHILS % (AUTO) 1.8 % (0.0-6.0); HEMATOCRIT 23 % (39-51); HEMOGLOBIN 7.3 g/dL (13.5-17.5); LYMPHOCYTES # (AUTO) 1.2 /CMM (0.8-4.8); LYMPHOCYTES % (AUTO) 10.3 % (20.0-44.0); MEAN CORPUSCULAR HGB CONC 32 g/dl (31.0-36.0); MEAN CORPUSCULAR VOLUME 86 fL (80-96); MONOCYTES # (AUTO) 1.2 /CMM (0.1-1.30); MONOCYTES % (AUTO) 10.1 % (2.0-12.0); NEUTROPHILS % (AUTO) 77.3 % (43.0-81.0); PLATELET COUNT (AUTO) 549 /CMM (150-450); RED BLOOD CELL COUNT(AUTO) 2.64 MIL/uL (4.5-6.0); WHITE BLOOD COUNT (AUTO) 11.7 K/uL (4.3-11.0)
[2019-11-12 04:42] LABS: CALCIUM, SERUM 7.7 mg/dL (8.5-10.1); CREATININE 1.2 mg/dL (0.6-1.3); MAGNESIUM 1.9 mg/dL (1.8-2.4); POTASSIUM 3.5 mmol/L (3.5-5.1)
[2019-11-12] MEDS ORDERED: PIPERACILLIN /TAZOBACTAM 3.375 G in IV D5W 50 ML IV ONE (05:00)
[2019-11-12] MEDS ORDERED: PIPERACILLIN /TAZOBACTAM 3.375 G VIAL IV ONE (05:14)
[2019-11-12] MEDS ORDERED: FEE PK DOSING 1 MIN EA MC ONE (06:56)
--- NOTE | 2019-11-12 06:59 | NUR ---
RN CLOSING NOTE PATIENT IN BED AND APPEARS RESTING COMFORTABLY, NO CHANGE IN CONDITION. STATUS POST BLOOD TRANSFUSION. REMAINS AFEBRILE. PATIENT IN NO ACUTE DISTRESS. NO SOB NOTED. NEEDS AND CONCERNS ADDRESSED. SAFETY MEASURES IMPLEMENTED PER PROTOCOL. PATIENT BED IS LOCKED AND IN LOWEST POSITION. SIDE RAILS UP. CALL LIGHT WITHIN REACH OF THE PATIENT. WILL ENDORSE TO MORNING SHIFT FOR CONTINUATION OF CARE.
--- NOTE | 2019-11-12 07:39 | NUR ---
WOUND CARE CONSULT: REVIEWED CHART, NURSING DOCUMENTATION AND PHOTOS WHICH SHOW SKIN ISSUES AND WOUNDS PRESENT ON ADMISSION. RECOMMEND SURGICAL AND DPM CONSULTS. DR GROSS AND DR ELLIS NOTIFIED OF CONSULT REQUESTS. PT IS ON SHIVA ISOFLEX LOW AIRLOSS BED. RECOMMENDATIONS MADE FOR SKIN PROTECTION. DISCUSSED WITH NURSING STAFF. WILL SEE PRN. SHULTZ IN AGREEMENT WITH PLAN OF CARE.
--- NOTE | 2019-11-12 08:00 | NUR ---
RN OPENING NOTE: RECEIVED PATIENT IN BED THIS MORNING. TOLERATING VENT SETTINGS WELL, NO SIGNS OF ACUTE RESPIRATORY DISTRESS NOTED, PATIENT IS OBTUNDED. GT CLAMPED, MINIMAL RESIDUAL UPON ASPIRATION. PATIENT CURRENTLY NPO STATUS PER DR BENSON UNTIL TOMORROW. WOUND CARE PER ORDERS. MULLEN DRAINING CLEAR, YELLOW URINE. BEDSIDE MONITOR SHOWS ST IN THE 100S. NO SIGNS OF ACUTE DISTRESS NOTED. BLANCA DOUBLE LUMEN PICC LINE, FLUSHING WITH A LITTLE RESISTANCE, WILL NOTIFY MD, OTHERWISE C/D/I. PATIENT IS ON ISOLATION PRECAUTIONS TO R/O COVID. SAFETY MEASURES IMPLEMENTED, BED IN LOWEST POSITION, LOCKED, SIDE RAILS UP X2, CALL LIGHT WITHIN REACH. WILL CONTINUE TO MONITOR PATIENT FOR CHANGES.
[2019-11-12] MEDS: DOCUSATE SODIUM LIQ 100 MG/10 ML UDC GT SCH (08:32)
[2019-11-12] MEDS: CHLORHEXIDINE GLUCONATE 15 ML UDC MM SCH ×2 (08:33→16:41)
[2019-11-12] MEDS: VANCOMYCIN 0.75 GM in IV D5W 250 ML IV SCH ×2 (08:36→21:22)
[2019-11-12] MEDS ORDERED: FERROUS SULFATE UDC 300 MG/5 ML UDC GT SCH (09:00)
[2019-11-12] MEDS ORDERED: SODIUM CHLORIDE 1000 MG TABLET GT SCH (09:00)
[2019-11-12] MEDS: PIPERACILLIN /TAZOBACTAM 3.375 G in IV D5W 100 ML IV SCH ×2 (10:41→18:07)
--- NOTE | 2019-11-12 11:54 | NUR ---
PER DR BENSON, KEEP PATIENT NPO UNTIL TOMORROW.
[2019-11-12] MEDS: IPRATROPIUM BROMIDE 14 GM INHALER (or 12.9 GM) IH SCH ×2 (13:42→19:30)
--- NOTE | 2019-11-12 15:41 | NUR ---
PATIENT'S PICC LINE A LITTLE RESISTIVE. CONTACTED DR WYNN TO INFORM HIM WITH ORDERS FOR ACTIVASE. CARRIED ORDER OUT. ALSO, WILL BE COLLECTING STOOL FOR OCCULT BLOOD IF PATIENT HAS A BM. MD AWARE OF PATIENT'S NPO STATUS.
[2019-11-12] MEDS ORDERED: ALTEPLASE CATHFLO 2 MG/VIAL XX ONE (16:00)
[2019-11-12] MEDS: LORAZEPAM 1 MG TABLET GT PRN (16:41)
--- NOTE | 2019-11-12 18:27 | NUR ---
PORT FOR PICC LINE SUCCESSFULLY DE-CLOGGED WITH BLOOD RETURN UPON ASPIRATION.
--- NOTE | 2019-11-12 18:27 | NUR ---
STOOL COLLECTED FOR OCCULT BLOOD. LAB NOTIFIED. AWAITING CD TECHNICIAN.
--- NOTE | 2019-11-12 18:32 | NUR ---
RN CLOSING NOTE: PATIENT REMAINS IN BED. NO SIGNS OF ACUTE RESPIRATORY DISTRESS NOTED. NO SIGNS OF ACUTE DISTRESS NOTED. BEDSIDE MONITOR ST IN THE 110S. SAFETY MEASURES IMPLEMENTED, BED IN LOWEST POSITION, LOCKED, SIDE RAILS UP X2, CALL LIGHT WITHIN REACH. WILL ENDORSE TO ONCOMING SHIFT RN FOR CONTINUITY OF CARE.
[2019-11-13] VITALS: BP 139/79
--- NOTE | 2019-11-13 01:00 | NUR ---
RECEIVED PATIENT FROM HEMA DONATO FOR CORA.
[2019-11-13] MEDS: IPRATROPIUM BROMIDE 14 GM INHALER (or 12.9 GM) IH SCH ×4 (01:30→19:30)
[2019-11-13] MEDS: PIPERACILLIN /TAZOBACTAM 3.375 G in IV D5W 100 ML IV SCH ×3 (02:00→17:24)
[2019-11-13 04:00] VITALS: BP 146/82
[2019-11-13 04:47] LABS: OCCULT BLOOD STOOL NEGATIVE (NEGATIVE)
--- NOTE | 2019-11-13 06:26 | NUR ---
CORNELIA RN NOTES NO CHANGES NOTED THROUGH OUT THE SHIFT. CONTINUES ON VENT SETTING TOLERATING WELL ORDERED. TELE MONITOR ST IN 120'S. ROUTINE MEDICATIONS WERE GIVEN PATIENT TOLERATED WELL. VITAL SIGNS REMAINED WNL. BED BATH RENDERED PATIENT TOLERATED WELL. WOUND CARE DONE. ALL NEEDS ARE ATTENDED. SAFETY MEASURES IN PLACE, CALL LIGHT WITHIN REACH. WILL ENDORSE TO AM NURSE FOR CORA.
[2019-11-13 06:57] LABS: BASOPHILS # (AUTO) 0.1 /CMM (0.0-0.2); BASOPHILS % (AUTO) 0.6 % (0.0-2.0); HEMATOCRIT 22 % (39-51); HEMOGLOBIN 7.1 g/dL (13.5-17.5); LYMPHOCYTES # (AUTO) 1.6 /CMM (0.8-4.8); LYMPHOCYTES % (AUTO) 18.4 % (20.0-44.0); MEAN CORPUSCULAR HGB CONC 32 g/dl (31.0-36.0); MEAN CORPUSCULAR VOLUME 86 fL (80-96); MONOCYTES # (AUTO) 0.9 /CMM (0.1-1.30); MONOCYTES % (AUTO) 9.8 % (2.0-12.0); NEUTROPHILS % (AUTO) 68.2 % (43.0-81.0); PLATELET COUNT (AUTO) 584 /CMM (150-450); RED BLOOD CELL COUNT(AUTO) 2.57 MIL/uL (4.5-6.0); WHITE BLOOD COUNT (AUTO) 8.8 K/uL (4.3-11.0)
--- NOTE | 2019-11-13 07:30 | NUR ---
OPENING NOTES RECEIVED REPORT FROM PRECISION LENS TECHNICIAN NURSE, PT IS RESTING IN BED, ON [facility] VENTILATOR TOLERATING SETTINGS WELL, RESPONSIVE TO TO PAINFUL STIMULI, SINUS TACH ON TELEMONITOR, HR 110, MULLEN CATH IS INTACT, PATENT, DRAINING CLEAR YELLOW URINE BY GRAVITY, G-TUBE INTACT, PATENT, NPO EXCEPT MEDS, PENDING GI CONSULT, BLANCA PICC LINE, INTACT, PATENT, IV NS @100 CC/HR BED IN LOWEST POSITION, LOCKED,HOB ELEVATED, CALL LIGHT IN REACH
[2019-11-13 07:32] LABS: ALBUMIN 1.5 g/dL (3.4-5.0); BILIRUBIN,TOTAL 0.4 mg/dL (0.2-1.0); CALCIUM, SERUM 7.7 mg/dL (8.5-10.1); CREATININE 1.2 mg/dL (0.6-1.3); MAGNESIUM 1.8 mg/dL (1.8-2.4); PHOSPHORUS 2.7 mg/dL (2.5-4.9); POTASSIUM 2.9 mmol/L (3.5-5.1); TOTAL PROTEIN, SERUM 7.7 g/dL (6.4-8.2)
[2019-11-13] MEDS: IPRATROPIUM BROMIDE 14 GM INHALER (or 12.9 GM) IH PRN ×2 (07:35→20:17)
[2019-11-13 08:00] VITALS: BP 125/85
[2019-11-13] MEDS: CHLORHEXIDINE GLUCONATE 15 ML UDC MM SCH ×2 (08:54→17:23)
[2019-11-13] MEDS: LEVETIRACETAM SOL (5 ML) 100 MG/ML UDC GT SCH ×2 (08:57→20:18)
[2019-11-13] MEDS: DOCUSATE SODIUM LIQ 100 MG/10 ML UDC GT SCH (08:57)
[2019-11-13] MEDS: VANCOMYCIN 0.75 GM in IV D5W 250 ML IV SCH ×2 (09:03→20:18)
[2019-11-13] MEDS: POTASSIUM CHLORIDE 20 MEQ POWDER PACKET NG SCH ×3 (11:23→12:34)
--- NOTE | 2019-11-13 12:15 | NUR ---
SVP RESEARCH & EBUSINESS OPERATIONS NOTES RECEIVED REPORT FROM CORNELIA RN/JANE VIA BED. PT IN BED, APPEARS CALM, ABLE TO OPEN EYES, OBTUNDED, NONVERBAL. ON [facility] VENTILATOR, TOLERATING CURRENT SETTINGS WELL, WITH NO RESPIRATORY DISTRESS NOTED. PT ON TELEMONITORING ST WITH HR 117. IVF NS AT 100ML/HR TO BLANCA PICC LINE, INTACT AND OPERATIONAL. PT NOTED GT, CLAMPED. MULLEN CATH IN PLACE, DRAINING CLEAR YELLOW URINE BY GRAVITY. HOB ELEVATED. PT KEPT COMFORTABLE. PER CORNELIA RN/JANE, GI CONSULT WAS ORDERED AND CONTACTED DR. CODY. CALL LIGHT KEPT WITHIN REACH. PT'S BED IN LOWEST POSITION, LOCKED POSITION WITH SRX3. WILL CONTINUE PLAN OF CARE.
--- NOTE | 2019-11-13 12:30 | NUR ---
RN NOTE TELE TRANSFERRED PT VIA ACLS PROTOCOL TO 3W ROOM 327-2 . PT IN STABLE CONDITION, REPORT GIVEN TO RN FOR CORA
[2019-11-13 16:00] VITALS: BP 153/97
--- NOTE | 2019-11-13 17:08 | NUR ---
INFORMATICS SPECIALIST NOTES RECEIVED CALL FROM DR. LOUISE REGARDING CONSULT. INFORMED REGARDINF PT HAD BOWEL MOVEMENT , NO SIGNS OF BLEEDING NOTED. NO VOMITING. FLUSHED GT WITH WATER AND HAS CLEAR 10ML RESIDUAL. PER MD/DR CADENA, OKAY TO RESUME FEEDING. WILL NOTIFY HOSPITALIST/DT WELL. WILL CONTINUE PLAN OF CARE.
[2019-11-13] MEDS: GLUCERNA 1.2 1,000 ML BOTTLE GT PRN (18:21)
--- NOTE | 2019-11-13 18:44 | NUR ---
JEWELRY TECHNICIAN NOTES PT REMAINS IN BED, APPEARS CALM, ABLE TO OPEN EYES, OBTUNDED, NONVERBAL. ON [facility] VENTILATOR, TOLERATING CURRENT SETTING, WITH NO RESPIRATORY DISTRESS NOTED. PT ON TELEMONITORING ST WITH HR 110. IVF NS AT 100ML/HR TO BLANCA PICC LINE, INTACT AND OPERATIONAL. GTF GLUCERNA 1.2 STARTED AT 25ML/HR TO INCREASE BY 5ML Q1 UNTIL REACHES GOAL OF 50ML/HR TO RUN FOR 20HR, 8AM OFF AND 12PM ON. MULLEN CATH IN PLACE, DRAINING CLEAR YELLOW URINE BY GRAVITY. HOB ELEVATED. PT KEPT COMFORTABLE. ALL NEEDS AND CARE ATTENDED. PT HAD BM TWICE WITH NO SIGNS OF BLEEDING NOTED, HOSPITALIST/DT MADE AWARE WELL. CALL LIGHT KEPT WITHIN REACH. PT'S BED IN LOWEST POSITION, LOCKED POSITION WITH SRX3. ALSO, JUST RECEIVED ORDER OF SERIAL DEBRIDEMENT OF LEFT BUTTOCK, CONSENT PREPARED TO ENDORSE TO INCOMING NIGHT NURSE FOR CORA.
[2019-11-13 20:00] VITALS: BP 150/91
[2019-11-13] MEDS ORDERED: LIDOCAINE 1%-EPI 1:100,000 20 ML VIAL TP ONE (20:00)
[2019-11-13] MEDS ORDERED: SILVER NITRATE APPLICATOR 1 EA BOX TP ONE (20:00)
[2019-11-13] MEDS: CHLORHEXIDINE GLUCONATE 4% 118 ML BOTTLE TP SCH (20:15)
[2019-11-13] MEDS: IV NS 0.9% 1,000 ML IV PRN (20:25)
[2019-11-13] MEDS: SENNOSIDES 8.6 MG TABLET GT SCH (21:14)
[2019-11-13] MEDS ORDERED: IPRATROPIUM NEB FS 0.5 MG/2.5 ML AMPUL.NEB NEB PRN (21:30)
[2019-11-13] MEDS: ACETAMINOPHEN 325 MG TABLET PO PRN (21:53)
[2019-11-13] MEDS: LORAZEPAM 1 MG TABLET GT PRN (21:53)
--- NOTE | 2019-11-13 21:58 | NUR ---
RT NOTE PT RECEIVED TRACHED ON MECHANICAL VENTILATION. AMBU BAG @ BEDSIDE. SX DONE, TRACH SECURED AND PATENT. ALARMS ON AND AUDIBLE. VENT PLUGGED TO RED OUTLET. NO DISTRESS NOTED. WILL MONITOR CLOSELY. CONT. PULSE OX CONNECTED. Addendum: 11/13/19 at 2159 by STACY BERUMEN RT Amended: Links added.
[2019-11-14] VITALS (15 sets, daily range): BP systolic 123–153; BP diastolic 75–98
--- NOTE | 2019-11-14 00:20 | NUR ---
RT NOTE TX START @ 0130. ERROR ON EMAR.
[2019-11-14] MEDS: IPRATROPIUM NEB FS 0.5 MG/2.5 ML AMPUL.NEB NEB SCH ×5 (01:19→19:57)
[2019-11-14] MEDS: LORAZEPAM 1 MG TABLET GT PRN ×2 (01:53→06:22)
[2019-11-14] MEDS: PIPERACILLIN /TAZOBACTAM 3.375 G in IV D5W 100 ML IV SCH ×3 (02:10→10:47)
--- NOTE | 2019-11-14 05:08 | NUR ---
RN notes Patient in bed, lying comfortably with no distress noted. Breathing even and unlabored. Afebrile with skin warm and dry to touch. Noted with elevated Heart rate of 136bpm. Reposition for comfort. Tylenol and ativan given for facial grimacing. At about 02:00, patient noted to have seizure like movement lasting about 3 minutes, monitored closely. siderails padded. No injury noted from the episode. Ativan given with help. Heart rate went down to 115-120bpm. Kept clean and dry. Will endorse to next shift for continuity of care.
[2019-11-14] MEDS: IV NS 0.9% 1,000 ML IV PRN ×2 (06:29→19:40)
[2019-11-14 07:51] LABS: BASOPHILS # (AUTO) 0.1 /CMM (0.0-0.2); BASOPHILS % (AUTO) 0.6 % (0.0-2.0); LYMPHOCYTES # (AUTO) 1.1 /CMM (0.8-4.8); LYMPHOCYTES % (AUTO) 11.9 % (20.0-44.0); MEAN CORPUSCULAR HGB CONC 32 g/dl (31.0-36.0); MEAN CORPUSCULAR VOLUME 88 fL (80-96); MONOCYTES # (AUTO) 0.9 /CMM (0.1-1.30); MONOCYTES % (AUTO) 9.6 % (2.0-12.0); NEUTROPHILS # (AUTO) 6.6 /CMM (1.8-8.9); NEUTROPHILS % (AUTO) 74.9 % (43.0-81.0); PLATELET COUNT (AUTO) 526 /CMM (150-450); RED BLOOD CELL COUNT(AUTO) 2.28 MIL/uL (4.5-6.0); WHITE BLOOD COUNT (AUTO) 8.9 K/uL (4.3-11.0)
[2019-11-14 08:00] LABS: CALCIUM, SERUM 7.7 mg/dL (8.5-10.1); CREATININE 1.2 mg/dL (0.6-1.3); MAGNESIUM 1.8 mg/dL (1.8-2.4); PHOSPHORUS 3.2 mg/dL (2.5-4.9); POTASSIUM 3.5 mmol/L (3.5-5.1)
--- NOTE | 2019-11-14 08:00 | NUR ---
RN OPENING NOTE RECEIVED PT IN BED OBTUNDED. PT IS ON [facility] VENTILATOR, WITH NO RESPIRATORY DISTRESS NOTED. PT ON TELEMONITORING SHOWING ST WITH HR 100S. PT HAS PICC LINE IN BLANCA RUNNING 100 ML/H INTACT AND PATENT. GTF GLUCERNA 1.2 45ML/HR. NO RESEDUAL NOTED.MULLEN CATH IN PLACE, DRAINING WELL. HOB ELEVATED. ..PT HAD BM TWICE WITH NO SIGNS OF BLEEDING NOTED. SAFETY MEASURES IN PLACE. CALL LIGHT KEPT WITHIN REACH. PT'S BED AT LOWEST POSITION, LOCKED SIDE RAILS UP X3. WILL ENDORSE TO INCOMING NURSE FOR CONTINUITY OF CARE.
--- NOTE | 2019-11-14 08:02 | NUR ---
RN NOTE PT HAD BM AT 0750 NO SIGN OF BLEEDING NOTED.
[2019-11-14] MEDS: DOCUSATE SODIUM LIQ 100 MG/10 ML UDC GT SCH (08:50)
[2019-11-14] MEDS: CHLORHEXIDINE GLUCONATE 15 ML UDC MM SCH ×2 (08:50→18:30)
[2019-11-14 09:00] LABS: HEMOGLOBIN 6.4 g/dL (13.5-17.5)
[2019-11-14 09:01] LABS: HEMATOCRIT 20 % (39-51)
[2019-11-14] MEDS: LEVETIRACETAM SOL (5 ML) 100 MG/ML UDC GT SCH ×2 (09:02→22:11)
[2019-11-14] MEDS: VANCOMYCIN 0.75 GM in IV D5W 250 ML IV SCH (09:03)
[2019-11-14] MEDS: MUPIROCIN OINT 2% 22 GM TUBE SCH ×2 (11:12→22:12)
[2019-11-14 11:46] LABS: EOSINOPHILS % (MANUAL) 1 % (0-4); LYMPHOCYTES % (MANUAL) 8 % (16-48); MONOCYTES % (MANUAL) 8 % (0-11.0); NEUTROPHILS % (MANUAL) 83 (42-76)
[2019-11-14] MEDS ORDERED: MEROPENEM 500 MG in IV NS 0.9% 50 ML IV SCH (18:00)
[2019-11-14] MEDS ORDERED: MEROPENEM 1 G in IV NS 0.9% 100 ML IV ONE (18:30)
[2019-11-14] MEDS: ACETAMINOPHEN 650 MG/20.3 ML UDC GT PRN (18:44)
--- NOTE | 2019-11-14 18:44 | NUR ---
rn notes t-100.7 F administer Tylenol 650 mg /ml via GT. and cooling Measure.
--- NOTE | 2019-11-14 18:50 | NUR ---
RN CLOSING NOTE PT IS SLEEPING IN THE BED. PT IS OBTUNDED, THERE IS NO S/S OF DISTRESS. 1 UNIT BLOOD INFUSED NO S/S OF REACTION NOTED LAST VITAL SIGNS BP 153/91, RR 24, HR 107, T 100.7. TYLENOL 650 GIVEN ALONG WITH COOLING MEASURE. PT NEEDS ARE MET. SAFETY MEASURE IN PLACE BED AT LOWEST POSITION, LOCKED, SIDE RAILS [id number]. ENDORSE TO INCOMING SHIFT FOR CONTINUITY OF CARE.
--- NOTE | 2019-11-14 19:55 | NUR ---
NO G-TUBE FEEDING RESIDUAL.
--- NOTE | 2019-11-14 19:59 | NUR ---
RT NOTE PT RECEIVED TRACHED ON MECHANICAL VENTILATION. AMBU BAG @ BEDSIDE. SX DONE, TRACH SECURED AND PATENT. VENT PLUGGED TO RED OUTLET. ALARMS ON AND AUDIBLE. CONT. PULSE OX CONNECTED. NO DISTRESS NOTED AT THIS TIME. WILL CONTINUE TO MONITOR.195 Addendum: 11/14/19 at 2218 by YENI VAIL RT Amended: Links added.
--- NOTE | 2019-11-14 20:30 | NUR ---
ICE PACKS PLACED TO THE PATIENT'S AXILLAE FOR COOLING MEASURES.
[2019-11-14 21:04] LABS: THYROID STIMULATING HORMONE 1.321 uIU/mL (0.358-3.74)
--- NOTE | 2019-11-14 21:41 | NUR ---
RECEIVED A CALL FROM DR STALEY AND UPDATED WITH THE PATIENT'S STATUS NO ORDERS MADE. INFORMED OF PATIENT'S TEMP 101.1.
[2019-11-14] MEDS: SENNOSIDES 8.6 MG TABLET GT SCH (22:10)
[2019-11-14] MEDS: GLUCERNA 1.2 1,000 ML BOTTLE GT PRN (22:27)
[2019-11-15] VITALS (7 sets, daily range): BP systolic 117–155; BP diastolic 47–88
[2019-11-15] MEDS: IPRATROPIUM NEB FS 0.5 MG/2.5 ML AMPUL.NEB NEB SCH ×4 (00:58→19:12)
[2019-11-15] MEDS ORDERED: MEROPENEM 1 G in IV NS 0.9% 100 ML IV SCH (03:00)
--- NOTE | 2019-11-15 05:21 | NUR ---
BILATERAL ARMS AND LEGS ARE CONTRACTED. OFFLOADED. NO PRESSURE AREAS NOTED. WITH MEPILEX FOAM DRESSING BETWEEN THE KNEES FOR PROTECTION.
[2019-11-15] MEDS: IV NS 0.9% 1,000 ML IV PRN (06:12)
--- NOTE | 2019-11-15 06:31 | NUR ---
BARREL RAISER HELPER CLOSING NOTES: PATIENT IN BED.AWAKE. OBTUNDED. HOB ELEVATED AT ALL TIMES. G-TUBE FEEDING CONTINUED AT 50ML/HR, NO RESIDUAL, PATIENT TOLERATED.WITH MULLEN CATH INTACT, GOOD OUTPUT. BED ALARM ON. BED IN LOWEST AND LOCKED POSITION. NO SEIZURES NOTED. NO SOB NOTED. NO PAIN DURING SHIFT.
--- NOTE | 2019-11-15 07:13 | NUR ---
CALLED THE PHARMACY RE: MERREM IV. TO ADJUST THE SCHEDULED NEXT DUE TIME, TALKED TO JOSÉ MIGUEL AND SHE WILL ADJUST THE TIME, WILL ENDORSE TO THE NEXT SHIFT RN.
[2019-11-15] MEDS ORDERED: VANCOMYCIN 500 MG in IV D5W 100 ML IV SCH (08:00)
--- NOTE | 2019-11-15 08:00 | NUR ---
RN OPENING NOTE Patient is resting in bed, A/O x0 obtunded, showing no signs of acute distress or SOB, saturating 100% on mechanical vent AC 20 TV 550 FIO2 40% PEEP 5 with continuous pulse ox at the bedside. Tele monitor SR 90s. BLANCA Picc line running TKO. G-tube noted with 0ml residual, flushing well. Bush catheter noted with clear urine output. Fall safety seizure and aspiration precautions enforced. Will continue with plan of care.
[2019-11-15] MEDS: CHLORHEXIDINE GLUCONATE 15 ML UDC MM SCH ×2 (08:58→17:14)
[2019-11-15] MEDS: DOCUSATE SODIUM LIQ 100 MG/10 ML UDC GT SCH (08:58)
[2019-11-15] MEDS: ACETAMINOPHEN 650 MG/20.3 ML UDC GT PRN (08:58)
[2019-11-15] MEDS: LEVETIRACETAM SOL (5 ML) 100 MG/ML UDC GT SCH ×2 (08:58→21:34)
[2019-11-15 08:59] LABS: BASOPHILS % (AUTO) 0.4 % (0.0-2.0); EOSINOPHILS % (AUTO) 2.8 % (0.0-6.0); HEMATOCRIT 24 % (39-51); HEMOGLOBIN 7.9 g/dL (13.5-17.5); LYMPHOCYTES # (AUTO) 0.9 /CMM (0.8-4.8); LYMPHOCYTES % (AUTO) 12.8 % (20.0-44.0); MEAN CORPUSCULAR HGB CONC 32 g/dl (31.0-36.0); MEAN CORPUSCULAR VOLUME 86 fL (80-96); MONOCYTES # (AUTO) 0.6 /CMM (0.1-1.30); MONOCYTES % (AUTO) 8.2 % (2.0-12.0); NEUTROPHILS # (AUTO) 5.6 /CMM (1.8-8.9); NEUTROPHILS % (AUTO) 75.8 % (43.0-81.0); PLATELET COUNT (AUTO) 459 /CMM (150-450); RED BLOOD CELL COUNT(AUTO) 2.83 MIL/uL (4.5-6.0); WHITE BLOOD COUNT (AUTO) 7.4 K/uL (4.3-11.0)
[2019-11-15] MEDS: MUPIROCIN OINT 2% 22 GM TUBE SCH ×2 (08:59→21:36)
[2019-11-15] MEDS: ACETAMINOPHEN 325 MG TABLET PO PRN (09:00)
--- NOTE | 2019-11-15 09:00 | NUR ---
RN NOTE Patient presents with temp of 100.4 Tylenol given and cooling measures initiated. Will Continue to monitor.
[2019-11-15 09:48] LABS: CALCIUM, SERUM 7.6 mg/dL (8.5-10.1); CREATININE 1.2 mg/dL (0.6-1.3); POTASSIUM 3.1 mmol/L (3.5-5.1)
[2019-11-15] MEDS: VANCOMYCIN 500 MG in IV D5W 100 ML IV SCH ×2 (11:51→21:34)
--- NOTE | 2019-11-15 13:41 | NUR ---
RN NOTE OK per N.P. to start patient on sliding scale moderate ACHS due to patient on continuous g-tube feedings.
[2019-11-15] MEDS ORDERED: *INSULIN REGULAR(HUMULIN R)HUM 100 UNIT/ML VIAL SQ PRN (14:00)
[2019-11-15] MEDS ORDERED: DEXTROSE 50%-WATER 50 ML DISP.SYRIN IV PRN (14:00)
[2019-11-15] MEDS ORDERED: INSULIN REGULAR, HUMAN 100 UNIT/ML 3 ML VIAL SQ PRN (14:00)
[2019-11-15] MEDS: GLUCERNA 1.2 1,000 ML BOTTLE GT PRN (16:13)
[2019-11-15] MEDS: MEROPENEM 1 G in IV NS 0.9% 100 ML IV SCH (17:15)
[2019-11-15] MEDS ORDERED: BLOOD SUGAR DIAGNOSTIC 1 EACH STRIP VI SCH (17:30)
--- NOTE | 2019-11-15 18:35 | NUR ---
RN CLOSING NOTE Patient is resting in bed, A/O x0 obtunded, showing no signs of acute distress or SOB, saturating 100% on mechanical vent with continuous pulse ox at the bedside. Tele monitor SR 90s. BLANCA Picc line running TKO. G-tube noted running glucerna 1.2 @ 50 ml/hr. Bush catheter noted with clear urine output 500cc out. Wound care done as ordered. All patient needs met, all due medications given. Patient kept clean and dry throughout shift. Fall safety seizure and aspiration precautions enforced. Will endorse to shift superintendent caustic cresylate.
--- NOTE | 2019-11-15 19:10 | NUR ---
RN OPENING NOTES Received patient, non-verbal, on vent with current settings tolerated well, no SOB/respiratory distress noted, saturating 100%. No s/sx of discomfort noted. On GTF infusing well, no vomiting noted, abdomen nondistended. With FC indwelling well. Kept on bed clean, dry and comfortable. Will continue to monitor accordingly.
[2019-11-15] MEDS: SENNOSIDES 8.6 MG TABLET GT SCH (21:34)
[2019-11-16] VITALS: BP 156/78
[2019-11-16] MEDS: BLOOD SUGAR DIAGNOSTIC 1 EACH STRIP VI SCH ×5 (00:29→23:42)
[2019-11-16] MEDS: INSULIN REGULAR, HUMAN 100 UNIT/ML 3 ML VIAL SQ PRN ×5 (00:37→23:54)
[2019-11-16] MEDS: IPRATROPIUM NEB FS 0.5 MG/2.5 ML AMPUL.NEB NEB SCH ×4 (01:14→20:15)
[2019-11-16] MEDS: LORAZEPAM 1 MG TABLET GT PRN (01:46)
[2019-11-16 04:00] VITALS: BP 150/88
[2019-11-16] MEDS: MEROPENEM 1 G in IV NS 0.9% 100 ML IV SCH ×2 (05:23→17:42)
--- NOTE | 2019-11-16 05:34 | NUR ---
PATIENT RECEIVED ON TRACH TO VENT WITH SETTINGS OF AC 20, 550 VT, 40%, +5. SUCTIONED FOR MINIMAL, THIN, YELLOW SECRETIONS. GIVEN IN-LINE TREATMENTS WITH NO ADVERSE REACTIONS. AMBU BAG AT BEDSIDE. VENT AND PULSE OXIMETER ALARMS AUDIBLE AND VISIBLE. Addendum: 11/16/19 at 0534 by HUBER HAGEN RT Amended: Links added.
[2019-11-16 06:09] LABS: BASOPHILS % (AUTO) 0.5 % (0.0-2.0); EOSINOPHILS % (AUTO) 3.1 % (0.0-6.0); HEMATOCRIT 26 % (39-51); HEMOGLOBIN 8.2 g/dL (13.5-17.5); LYMPHOCYTES # (AUTO) 1.1 /CMM (0.8-4.8); LYMPHOCYTES % (AUTO) 14.9 % (20.0-44.0); MEAN CORPUSCULAR HGB CONC 32 g/dl (31.0-36.0); MEAN CORPUSCULAR VOLUME 86 fL (80-96); MONOCYTES # (AUTO) 0.7 /CMM (0.1-1.30); MONOCYTES % (AUTO) 9.2 % (2.0-12.0); NEUTROPHILS # (AUTO) 5.4 /CMM (1.8-8.9); NEUTROPHILS % (AUTO) 72.3 % (43.0-81.0); PLATELET COUNT (AUTO) 471 /CMM (150-450); RED BLOOD CELL COUNT(AUTO) 2.99 MIL/uL (4.5-6.0); WHITE BLOOD COUNT (AUTO) 7.5 K/uL (4.3-11.0)
[2019-11-16 06:28] LABS: BILIRUBIN,TOTAL 0.2 mg/dL (0.2-1.0); CALCIUM, SERUM 7.9 mg/dL (8.5-10.1); CREATININE 1.2 mg/dL (0.6-1.3); MAGNESIUM 1.9 mg/dL (1.8-2.4); PHOSPHORUS 2.9 mg/dL (2.5-4.9); POTASSIUM 3.2 mmol/L (3.5-5.1); TOTAL PROTEIN, SERUM 7.2 g/dL (6.4-8.2)
[2019-11-16 07:05] LABS: ALBUMIN 1.4 g/dL (3.4-5.0)
--- NOTE | 2019-11-16 07:06 | NUR ---
RN CLOSING NOTES Patient comfortably on bed, on vent with settings tolerated well. Afebrile the whole shift, no new unusualities. All nursing needs attended. Due meds given as ordered. Kept on bed clean, dry and comfortable. 07 - Received a critical lab result: Albumin 1.4. Endorsed to HEMA Smiley.
--- NOTE | 2019-11-16 07:36 | NUR ---
RN OPENING NOTE Patient is resting in bed, A/O x0 obtunded, showing no signs of acute distress or SOB, saturating 100% on mechanical vent AC 20 TV 550 FIO2 40% PEEP 5 with continuous pulse ox at the bedside. Tele monitor ST. BLANCA HART Picc line running TKO. G-tube noted with 0ml residual, flushing well. Bush catheter noted with clear urine output. Fall safety seizure and aspiration precautions enforced. Will continue with plan of care.
[2019-11-16 08:00] VITALS: BP 141/76
[2019-11-16] MEDS: MUPIROCIN OINT 2% 22 GM TUBE SCH ×2 (08:37→21:36)
[2019-11-16] MEDS: CHLORHEXIDINE GLUCONATE 15 ML UDC MM SCH ×2 (08:37→17:44)
[2019-11-16] MEDS: LEVETIRACETAM SOL (5 ML) 100 MG/ML UDC GT SCH ×2 (08:37→21:40)
[2019-11-16] MEDS: DOCUSATE SODIUM LIQ 100 MG/10 ML UDC GT SCH (08:37)
[2019-11-16 09:08] LABS: IMMUNOGLOBULIN A, SERUM 621 mg/dL (61-437); IMMUNOGLOBULIN G, SERUM 1885 mg/dL (603-1613); IMMUNOGLOBULIN M, SERUM 40 mg/dL (20-172)
[2019-11-16] MEDS: VANCOMYCIN 500 MG in IV D5W 100 ML IV SCH ×2 (09:50→23:02)
[2019-11-16 12:00] VITALS: BP 145/78
[2019-11-16] MEDS ORDERED: POTASSIUM CHLORIDE 20 MEQ POWDER PACKET NG ONE (13:30)
[2019-11-16] MEDS: ALBUMIN 25% 25 GM in PREMIX 1 EA IV SCH ×2 (14:08→21:39)
[2019-11-16 16:00] VITALS: BP_SYST 143; BP_SYST 160; BP_DIAS 81; BP_DIAS 90
--- NOTE | 2019-11-16 18:50 | NUR ---
RN CLOSING NOTE Patient is resting in bed, A/O x0 obtunded, showing no signs of acute distress or SOB, saturating 100% on mechanical vent AC 20 TV 550 FIO2 40% PEEP 5 with continuous pulse ox at the bedside. Tele monitor SR 70s. BLANCA Picc line running TKO. G-tube noted with 0ml residual, flushing well running GLucerna 1.2 @ 50ml/hour. Bush catheter noted with clear urine output 900cc total. All patient needs met, all due medications given, patient kept clean and dry throughout shift, wound care completed as ordered. Fall safety seizure and aspiration precautions enforced. Will endorse to shift engineer.
[2019-11-16 20:00] VITALS: BP 149/86
[2019-11-16] MEDS: SENNOSIDES 8.6 MG TABLET GT SCH (21:40)
[2019-11-17] VITALS (7 sets, daily range): BP systolic 146–157; BP diastolic 79–90
--- NOTE | 2019-11-17 00:28 | NUR ---
RT NOTE Pt rec'd trached on mech vent on AC mode pt shows no signs of resp distress. Trach is patent and secured. Sx'd for thick mod amt of pale yellow secretions. Alarms are set and audible. Ambu bag bedside. Vent plugged into red outlet. Will continue to monitor. Addendum: 11/17/19 at 0029 by REBA WALKER RT Amended: Links added.
[2019-11-17] MEDS: IPRATROPIUM NEB FS 0.5 MG/2.5 ML AMPUL.NEB NEB SCH ×4 (01:50→19:11)
[2019-11-17] MEDS: ALBUMIN 25% 25 GM in PREMIX 1 EA IV SCH (05:12)
[2019-11-17] MEDS: BLOOD SUGAR DIAGNOSTIC 1 EACH STRIP VI SCH ×4 (05:40→23:25)
[2019-11-17] MEDS: INSULIN REGULAR, HUMAN 100 UNIT/ML 3 ML VIAL SQ PRN ×4 (05:50→23:27)
[2019-11-17] MEDS: MEROPENEM 1 G in IV NS 0.9% 100 ML IV SCH ×2 (06:19→17:34)
[2019-11-17 07:11] LABS: BASOPHILS # (AUTO) 0.1 /CMM (0.0-0.2); BASOPHILS % (AUTO) 0.6 % (0.0-2.0); EOSINOPHILS % (AUTO) 3.6 % (0.0-6.0); HEMATOCRIT 28 % (39-51); HEMOGLOBIN 8.9 g/dL (13.5-17.5); LYMPHOCYTES % (AUTO) 11.4 % (20.0-44.0); MEAN CORPUSCULAR HGB CONC 32 g/dl (31.0-36.0); MEAN CORPUSCULAR VOLUME 86 fL (80-96); MONOCYTES # (AUTO) 0.7 /CMM (0.1-1.30); MONOCYTES % (AUTO) 7.7 % (2.0-12.0); NEUTROPHILS # (AUTO) 6.9 /CMM (1.8-8.9); NEUTROPHILS % (AUTO) 76.7 % (43.0-81.0); PLATELET COUNT (AUTO) 502 /CMM (150-450); RED BLOOD CELL COUNT(AUTO) 3.22 MIL/uL (4.5-6.0)
[2019-11-17 07:18] LABS: CALCIUM, SERUM 8.5 mg/dL (8.5-10.1); PHOSPHORUS 2.9 mg/dL (2.5-4.9); POTASSIUM 3.5 mmol/L (3.5-5.1)
--- NOTE | 2019-11-17 07:58 | NUR ---
RN Opening Note Patient is A/O x 0 resting in bed. Showing no signs of distress or SOB. BLANCA Picc line intact and running. Tele monitor ST and Bsuh catheter noted. Fall safety seizure and aspiration precautions NPO. Patient is on ventilator AC 20 TV 550 FI02 40% PEEP 5. Bed setting is in low with side rails up. Will continue to monitor.
[2019-11-17] MEDS: DOCUSATE SODIUM LIQ 100 MG/10 ML UDC GT SCH (08:32)
[2019-11-17] MEDS: LEVETIRACETAM SOL (5 ML) 100 MG/ML UDC GT SCH ×2 (08:32→21:14)
[2019-11-17] MEDS: CHLORHEXIDINE GLUCONATE 15 ML UDC MM SCH ×2 (10:03→17:32)
[2019-11-17] MEDS: MUPIROCIN OINT 2% 22 GM TUBE SCH ×2 (10:04→21:14)
[2019-11-17] MEDS: VANCOMYCIN 500 MG in IV D5W 100 ML IV SCH ×2 (10:46→23:10)
--- NOTE | 2019-11-17 13:04 | NUR ---
COMMERCIAL LOAN MANAGER Notes Patient is A/O x 0. Vital signs within normal limits. Accucheck was 180mg/dL insulin was given and scheduled medications were also given. No signs of distress or discomfort. Bed is in low settings and side rails up for safety. Will continue to monitor.
[2019-11-17 16:07] LABS: *SPE A/G RATIO 0.4 (0.7-1.7); *SPE ALBUMIN 1.7 g/dL (2.9-4.4); *SPE ALPHA-1-GLOBULIN 0.4 g/dL (0.0-0.4); *SPE ALPHA-2-GLOBULIN 0.9 g/dL (0.4-1.0); *SPE GLOBULIN, TOTAL 4.1 g/dL (2.2-3.9); *SPE M-SPIKE Not Observed g/dL (Not Observed); *SPEGAMMA GLOBULIN 1.8 g/dL (0.4-1.8)
--- NOTE | 2019-11-17 18:05 | NUR ---
RN CLINICAL DOCUMENTATION Closing Notes Patient is resting in bed A/O x 0. Shows no signs of acute distress and no SOB. Patient had wound treatment and dressing change done. Picc line BLANCA is patent and running. Bush catheter noted and intact. G-tube noted. Mechanical ventilator AC 20 PEEP 5 TV 550 and FI02 40%. Patient was kept clean and dry with clean linen. Scheduled medications were given. Bed is in low settings with side rails up for safety. Will endorse to warehouse shift supervisor.
--- NOTE | 2019-11-17 19:30 | NUR ---
CULINARY MANAGER NOTES PATIENT RECEIVED IN BED, ALERT AND ORIENTED X 0, OBTUNDED, AND NON-VERBAL RESPONSE. ON VENTILATOR, TOLERATING SETTINGS, WITH NO SIGNS OF RESPIRATORY DISTRESS AT THIS TIME, AND SPO2 100%. ON ORDNANCE HANDLER, SINUS RHYTHM, 80S. PATIENT MULLEN IN PLACE WITH URINE OUTPUT. G-TUBE FEEDING IN PLACE INFUSING 50ml/hr OF GLUCERNA 1.2. RIGHT UPPER ARM PICC LINE IN PLACE, INTACT AND PATENT. SKIN WARM AND DRY TO TOUCH. PATIENT DISPLAYS NO PAIN OR DISCOMFORT AT THIS TIME. PROVIDED COMFORT MEASURES TO PATIENT. SAFETY PRECAUTIONS IMPLEMENTED WITH BED LOCKED, BED IN THE LOWEST POSITION, BILATERAL SIDE RAILS UP, BED ALARM ON AND CALL LIGHT WITHIN EASY REACH OF THE PATIENT. WILL CONTINUE TO MONITOR PATIENT.
[2019-11-17] MEDS: SENNOSIDES 8.6 MG TABLET GT SCH (21:13)
[2019-11-17] MEDS: CHLORHEXIDINE GLUCONATE 4% 118 ML BOTTLE TP SCH (21:16)
--- NOTE | 2019-11-17 23:27 | NUR ---
HOME PARAPROFESSIONAL NOTES PATIENT'S BLOOD SUGAR 182, PER SLIDING SCALE PROTOCOL, 3 UNITS OF INSULIN ADMINISTERED. PATIENT ON G-TUBE FEEDING, GLUCERNA 1.2 AT 50ml/hr. WILL CONTINUE TO MONITOR PATIENT.
[2019-11-18] MEDS: IPRATROPIUM NEB FS 0.5 MG/2.5 ML AMPUL.NEB NEB SCH ×4 (01:38→20:16)
[2019-11-18] MEDS: MEROPENEM 1 G in IV NS 0.9% 100 ML IV SCH ×2 (05:10→17:43)
[2019-11-18] MEDS: BLOOD SUGAR DIAGNOSTIC 1 EACH STRIP VI SCH ×4 (05:22→23:30)
--- NOTE | 2019-11-18 05:29 | NUR ---
PATIENT RECEIVED ON TRACH TO VENT WITH SETTINGS OF AC 20, 550 VT, 40%, +5. SUCTIONED FOR MINIMAL, THIN, YELLOW SECRETIONS. GIVEN IN-LINE TREATMENTS WITH NO ADVERSE REACTIONS. AMBU BAG AT BEDSIDE. VENT AND PULSE OXIMETER ALARMS AUDIBLE AND VISIBLE. VENT PLUGGED INTO RED OUTLET. Addendum: 11/18/19 at 0531 by HUBER HAGEN RT Amended: Links added.
[2019-11-18] MEDS: INSULIN REGULAR, HUMAN 100 UNIT/ML 3 ML VIAL SQ PRN ×4 (05:46→23:37)
--- NOTE | 2019-11-18 05:46 | NUR ---
FIBER MACHINE TENDER NOTES PATIENT'S BLOOD SUGAR 171, PER SLIDING SCALE PROTOCOL, 3 UNITS OF INSULIN ADMINISTERED. PATIENT ON G-TUBE FEEDING, GLUCERNA 1.2 AT 50ml/hr. WILL CONTINUE TO MONITOR PATIENT.
[2019-11-18 06:27] LABS: BASOPHILS % (AUTO) 0.6 % (0.0-2.0); EOSINOPHILS % (AUTO) 4.2 % (0.0-6.0); HEMATOCRIT 24 % (39-51); HEMOGLOBIN 7.6 g/dL (13.5-17.5); MEAN CORPUSCULAR HGB CONC 32 g/dl (31.0-36.0); MEAN CORPUSCULAR VOLUME 86 fL (80-96); MONOCYTES # (AUTO) 0.6 /CMM (0.1-1.30); MONOCYTES % (AUTO) 8.5 % (2.0-12.0); NEUTROPHILS # (AUTO) 5.2 /CMM (1.8-8.9); NEUTROPHILS % (AUTO) 72.7 % (43.0-81.0); PLATELET COUNT (AUTO) 451 /CMM (150-450); RED BLOOD CELL COUNT(AUTO) 2.78 MIL/uL (4.5-6.0); WHITE BLOOD COUNT (AUTO) 7.2 K/uL (4.3-11.0)
--- NOTE | 2019-11-18 06:52 | NUR ---
FILER REPAIRER NOTES PATIENT IN BED NON-VERBAL RESPONSE, AWAKENS BY NAME AND LIGHT TOUCH. ON VENT, TOLERATING SETTINGS, WITH NO SIGNS OF RESPIRATORY DISTRESS AT THIS TIME, AND SPO2 100%. ON FLASH WELDING MACHINE OPERATOR, SINUS RHYTHM, 99. PATIENT MULLEN IN PLACE. G-TUBE FEEDING IN PLACE INFUSING 50ml/hr OF GLUCERNA 1.2. RIGHT UPPER ARM PICC LINE IN PLACE, INTACT AND PATENT. SKIN KEPT WARM AND DRY. PATIENT DISPLAYS NO PAIN OR DISCOMFORT AT THIS TIME. PROVIDED COMFORT MEASURES TO PATIENT. SAFETY PRECAUTIONS IMPLEMENTED WITH BED LOCKED, BED IN THE LOWEST POSITION, BILATERAL SIDE RAILS UP, BED ALARM ON AND CALL LIGHT WITHIN EASY REACH OF THE PATIENT. WILL ENDORSE PLAN OF CARE TO UPCOMING DAYSHIFT NURSE.
--- NOTE | 2019-11-18 07:45 | NUR ---
equine intern Opening Notes Patient is in bed non verbal awakens with touch. On ventilator settings with no signs of shortness of breath and no signs of distress. Bush catheter in place, G-Tube feeding in place infusing 50 mL/hr . Right upper arm Picc line in place, intact and patent. Bed is in low settings and side rails up for safety. Continue to monitor.
[2019-11-18 08:00] VITALS: BP 155/86
[2019-11-18 08:02] LABS: CALCIUM, SERUM 8.1 mg/dL (8.5-10.1)
[2019-11-18 08:06] LABS: POTASSIUM 2.8 mmol/L (3.5-5.1)
[2019-11-18] MEDS: DOCUSATE SODIUM LIQ 100 MG/10 ML UDC GT SCH (08:29)
[2019-11-18] MEDS: LEVETIRACETAM SOL (5 ML) 100 MG/ML UDC GT SCH ×2 (08:30→21:39)
[2019-11-18] MEDS: CHLORHEXIDINE GLUCONATE 15 ML UDC MM SCH ×2 (08:30→16:35)
[2019-11-18] MEDS: MUPIROCIN OINT 2% 22 GM TUBE SCH ×2 (08:52→21:40)
[2019-11-18] MEDS: POTASSIUM CHLORIDE 20 MEQ POWDER PACKET NG SCH ×5 (09:42→14:22)
--- NOTE | 2019-11-18 09:49 | NUR ---
CHRONIC CARE NURSE Note Patient seen by Dr. Clary MD aware of patient latest lab results no new order given.
[2019-11-18] MEDS: VANCOMYCIN 500 MG in IV D5W 100 ML IV SCH ×2 (10:42→22:17)
[2019-11-18 12:00] VITALS: BP 142/86
--- NOTE | 2019-11-18 12:28 | NUR ---
FUEL CELL TEST ENGINEER Notes Patient's blood sugar 166 per sliding scale protocol, 3 units of insulin was given. Scheduled medication was given. Will continue to monitor.
[2019-11-18] MEDS ORDERED: EPOETIN ALFA (20,000 UNIT) 20,000 UNIT/ML VIAL SQ SCH (15:00)
[2019-11-18 16:00] VITALS: BP 140/80
--- NOTE | 2019-11-18 18:16 | NUR ---
cutter operator asbestos shingle Closing Notes Patient in bed non-verbal, awaken to name and touch. On vent tolerating settings, with no signs f distress or shortness of breath. Bush catheter in place. G-Tube feeding in place and R UA Picc line in place intact and patent. Patient shows no signs of pain. Scheduled medication were given. Last Accucheck was 161, 3 units of insulin given. Bed is in low settings, with side rails up for safety. Will endorse the plan of care to upcoming security shift supervisor.
--- NOTE | 2019-11-18 19:15 | NUR ---
tile decorator opening notes Received Pt from morning nurse. Pt is resting in bed comfortably. Pt is non verbal and able to open eyes. Pt is mec.ventilator. No SOB. No S/S of distress noted. R upperarm piccline is clean, intact and infusing well merrem abx. Bush cath is intact and draining yellow urine. Gtube feeding is clean, intact and infusing well glucerna at 50 ml/hr. safety precautions is maintained. Bed at low position, brakes locked, side rails upX2 and call light is within reach. Will continue to monitor.
[2019-11-18 20:00] VITALS: BP 129/76
[2019-11-18 20:42] VITALS: BP 129/76
[2019-11-18] MEDS: SENNOSIDES 8.6 MG TABLET GT SCH (21:39)
[2019-11-19] VITALS (7 sets, daily range): BP systolic 131–151; BP diastolic 75–95
[2019-11-19] MEDS: IPRATROPIUM NEB FS 0.5 MG/2.5 ML AMPUL.NEB NEB SCH ×4 (01:23→19:30)
[2019-11-19] MEDS: GLUCERNA 1.2 1,000 ML BOTTLE GT PRN (02:45)
[2019-11-19] MEDS: MEROPENEM 1 G in IV NS 0.9% 100 ML IV SCH ×2 (05:39→18:10)
[2019-11-19] MEDS: BLOOD SUGAR DIAGNOSTIC 1 EACH STRIP VI SCH ×4 (05:50→23:51)
[2019-11-19] MEDS: INSULIN REGULAR, HUMAN 100 UNIT/ML 3 ML VIAL SQ PRN ×4 (05:53→23:56)
[2019-11-19 06:53] LABS: BASOPHILS # (AUTO) 0.1 /CMM (0.0-0.2); BASOPHILS % (AUTO) 0.9 % (0.0-2.0); EOSINOPHILS % (AUTO) 3.4 % (0.0-6.0); HEMATOCRIT 24 % (39-51); HEMOGLOBIN 7.7 g/dL (13.5-17.5); LYMPHOCYTES # (AUTO) 1.3 /CMM (0.8-4.8); LYMPHOCYTES % (AUTO) 16.6 % (20.0-44.0); MEAN CORPUSCULAR HGB CONC 33 g/dl (31.0-36.0); MEAN CORPUSCULAR VOLUME 85 fL (80-96); MONOCYTES # (AUTO) 0.7 /CMM (0.1-1.30); MONOCYTES % (AUTO) 9.4 % (2.0-12.0); NEUTROPHILS # (AUTO) 5.5 /CMM (1.8-8.9); NEUTROPHILS % (AUTO) 69.7 % (43.0-81.0); PLATELET COUNT (AUTO) 500 /CMM (150-450); RED BLOOD CELL COUNT(AUTO) 2.78 MIL/uL (4.5-6.0); WHITE BLOOD COUNT (AUTO) 7.9 K/uL (4.3-11.0)
--- NOTE | 2019-11-19 06:58 | NUR ---
matchbook maker closing notes Pt is resting in bed comfortably. Pt is non verbal and able to open eyes. Pt is mec.ventilator. No SOB. No S/S of distress noted. VS is stable. Afebrile. Routine meds were given as ordered. R upperarm piccline is clean, intact and infusing well merrem abx. Bush cath is intact and draining yellow urine 600ml. Gtube feeding is clean, intact and infusing well glucerna at 50 ml/hr. Wound care provided as ordered. Kept Pt clean, dry and comfortable. All needs met and attended. Safety precautions is maintained. Bed at low position, brakes locked, side rails upX2 and call light is within reach. Will endorse to morning nurse for CORA.
[2019-11-19 07:04] LABS: CALCIUM, SERUM 8.3 mg/dL (8.5-10.1); CREATININE 1.2 mg/dL (0.6-1.3); MAGNESIUM 1.9 mg/dL (1.8-2.4); PHOSPHORUS 3.1 mg/dL (2.5-4.9); POTASSIUM 3.5 mmol/L (3.5-5.1)
--- NOTE | 2019-11-19 07:36 | NUR ---
rn notes patient received on a ventilator, no sob noted, patient shows no s/s of pain at this time. Bush present and is patent. BLANCA piccline present. Bed at the lowest setting, call light within reach, side rails up x2.
[2019-11-19] MEDS: DOCUSATE SODIUM LIQ 100 MG/10 ML UDC GT SCH (08:24)
[2019-11-19] MEDS: CHLORHEXIDINE GLUCONATE 15 ML UDC MM SCH ×2 (08:24→16:52)
[2019-11-19] MEDS: LEVETIRACETAM SOL (5 ML) 100 MG/ML UDC GT SCH ×2 (08:24→20:52)
[2019-11-19] MEDS: MUPIROCIN OINT 2% 22 GM TUBE SCH ×2 (08:25→20:52)
[2019-11-19] MEDS ORDERED: PROSOURCE / PROSTAT (PYXIS) 30 ML UDC GT SCH (09:00)
[2019-11-19] MEDS: VANCOMYCIN 500 MG in IV D5W 100 ML IV SCH ×2 (10:52→22:20)
[2019-11-19] MEDS ORDERED: MERO1VIA23 IV (13:02)
[2019-11-19] MEDS ORDERED: VANC500P5 IV (13:02)
--- NOTE | 2019-11-19 17:45 | NUR ---
rn notes patient discharged at this time, no sob noted, patient shows no s/s of pain at this time. vital signs baseline status. Patient to be transported via [facility] ambulance. pictures taken of patients wound. nothing missing from patient. paper works given to [facility] transport team. Addendum: 11/19/19 at 1806 by SERAFIN LOGAN RN pt not discharged at this time
--- NOTE | 2019-11-19 18:27 | NUR ---
rn notes patient did not get transferred, HR 116 and BP in the 150/90's. close to the baseline of patient but per CW, hold transfer for now. Vent dependent., tyrel patent. 1.2 nutrin with @ 50 ml per hour running for 24 hours. BLANCA piccline present. bed at the lowest setting, call light within reach, side rails up x2.
--- NOTE | 2019-11-19 19:15 | NUR ---
PLACEMENT MANAGER NOTES RECEIVED ON BED,OPEN EYES TO NAME,ON TRACH TO VENT,SETTINGS TOLERATED WELL.GT FEEDING IN PROGRESS VIA GT PUMP.PLACEMENT PATENT,NO RESIDUAL VOLUME NOTED.WITH RIGHT UPPER ARM PICC LINE FOR MEDS.,ON GEL BED FOR SKIN MANAGEMENT.MULLEN CATH IN PLACE DRAINING YELLOWISH OUTPUT.WILL CALL FOR DISCHARGE TO SNF,AWAITING BLOOD PRESSURE TO GO DOWN.WILL CONTINUE TO MONITOR STATUS.
--- NOTE | 2019-11-19 19:30 | NUR ---
HEATER OPERATOR NOTES RT AT BEDSIDE ADMINISTERING BREATHING TREATMENT SCHEDULED.
--- NOTE | 2019-11-19 19:33 | NUR ---
RT NOTE PT RECEIVED TRACHED ON MECHANICAL VENTILATION. CUFF CHECKED VIA ADMINISTRATIVE PROJECT COORDINATOR. AMBU BAG @ HOB. VENT PLUGGED TO RED OUTLET. ALARMS ON AND AUDIBLE. TX GIVEN, NO ADVERSE REACTIONS NOTED. SX DONE, TRACH SECURED AND PATENT. NO DISTRESS NOTED AT THIS TIME. CONT. PULSE OX CONNECTED. WILL MONITOR CLOSELY. Addendum: 11/19/19 at 1934 by STACY BERUMEN RT Amended: Links added.
[2019-11-19] MEDS: SENNOSIDES 8.6 MG TABLET GT SCH (22:19)
--- NOTE | 2019-11-19 22:45 | NUR ---
TRAILERS AND MOTOR HOMES SALESPERSON NOTES HOSPITALIST JOSE G MADE AWARE OF PATIENT STATUS,THAT PATIENT IS FOR DISCHARGE TODAY BUT HE WASNT JEWELRY BENCH MOLDER DUE TO ELEVATED HEART RATE AND BLOOD PRESSURE,WITH ORDER TO GO ON WITH DISCHARGE TONIGHT.
[2019-11-19] MEDS: LORAZEPAM 1 MG TABLET GT PRN (23:14)
--- NOTE | 2019-11-19 23:14 | NUR ---
PLANT EQUIPMENT ENGINEER NOTES MEDICATED WITH ATIVAN 1MG/GT TO CALM HIM DOWN AND PER HOSPITALIST REQUEST.
--- NOTE | 2019-11-19 23:30 | NUR ---
APPLIANCES SAMPLE MAKER NOTES REPOST GIVEN TO SHYANN GARRIDO AT THE FACILITY [facility].
--- NOTE | 2019-11-19 23:45 | NUR ---
CAN CLEANER NOTES CALLED AMBULANCE FOR TRANSPORT,ETA 0200,WAITING FOR NURSE FOR ACLS PROTOCOL
[2019-11-20] VITALS: BP 139/84
--- NOTE | 2019-11-20 | NUR ---
POOL ATTENDANT NOTES ACCU-CGECK BLOOD SUGAR CHECK 177,COVERED WITH HUMULIN R 3 UNITS PER SLIDING SCALE.GT FEEDING IN PROGRESS.
--- NOTE | 2019-11-20 | NUR ---
BRAND REPRESENTATIVE NOTES VITAL SIGNS WITH IN NORMAL LIMITS WITH BP139/84,PULSE OF 107,RR-20 ORAL TEMP-98.8
[2019-11-20] MEDS: IPRATROPIUM NEB FS 0.5 MG/2.5 ML AMPUL.NEB NEB SCH (01:35)
--- NOTE | 2019-11-20 02:05 | NUR ---
COMMUNICATIONS PROFESSOR NOTES AMBULANCE CALLED SAYING,CHART CHANGER TIME CHANGED TO 0430 TO 0500 AM,STILL WAITING FOR RN TO ACCOMPANY THE,.NO RN AVAILABLE AT THE MOMENT.
--- NOTE | 2019-11-20 02:10 | NUR ---
MACHINE TOOL DRESSER NOTES HOSPITALIST JOSE G MADE AWARE OF PICK TIME AND SHE SAYS "OKAY".CHARGE NURSE AWARE WELL.
[2019-11-20] MEDS: GLUCERNA 1.2 1,000 ML BOTTLE GT PRN (02:24)
[2019-11-20 04:00] VITALS: BP 131/77
--- NOTE | 2019-11-20 05:35 | NUR ---
DATA STEWARD NOTES GOT FOOD SERVICE ORDER CLERK BY AMBULANCE,DISCHARGE TO [facility].VITAL SIGNS WITH IN NORMAL LIMITS TAKEN BY PARAMEDICS.GT CLAMPED.MULLEN EMTIED 1000ML OF YELLOWISH URINE.IN NO ACUTE DISTRESS.CALLED [facility] SUB ACUTE,SPOKE TO SHYANN FOR PATIENT UPDATE.
== END 2019-11-20 05:35 | DRG 853 ==
LOC: ER 18:46 → ICU 21:33 → TELE1 11-12 21:33 → TELE-TD 11-13 00:46 → TELE1 11-13 02:38 → TELE 11-13 12:17
PROVIDERS: ADMIT Internal Medicine; ATTEND Student in an Organized Health Care Education/Training Program
PROC: 30233N1 Transfusion of Nonautologous Red Blood Cells into Peripheral Vein, Percutaneous Approach (ICD-10-PCS; 2019-11-11)
PROC: 5A1955Z Respiratory Ventilation, Greater than 96 Consecutive Hours (ICD-10-PCS; principal; 2019-11-12)
PROC: 0JB90ZZ Excision of Buttock Subcutaneous Tissue and Fascia, Open Approach (ICD-10-PCS; 2019-11-17)
DX: A41.9 Sepsis, unspecified organism (principal); L89.154 Pressure ulcer of sacral region, stage 4; L89.323 Pressure ulcer of left buttock, stage 3; N17.0 Acute kidney failure with tubular necrosis; J96.20 Acute and chronic respiratory failure, unspecified whether with hypoxia or hypercapnia; G93.41 Metabolic encephalopathy; J15.6 Pneumonia due to other Gram-negative bacteria; R53.2 Functional quadriplegia; D68.59 Other primary thrombophilia; N39.0 Urinary tract infection, site not specified; E87.2 Acidosis; Z99.11 Dependence on respirator [ventilator] status; Z16.12 Extended spectrum beta lactamase (ESBL) resistance; E11.22 Type 2 diabetes mellitus with diabetic chronic kidney disease; D63.1 Anemia in chronic kidney disease; I12.9 Hypertensive chronic kidney disease with stage 1 through stage 4 chronic kidney disease, or unspecified chronic kidney disease; R13.10 Dysphagia, unspecified; N18.9 Chronic kidney disease, unspecified; E78.5 Hyperlipidemia, unspecified; E87.6 Hypokalemia; I25.10 Atherosclerotic heart disease of native coronary artery without angina pectoris; Z93.1 Gastrostomy status; Z86.73 Personal history of transient ischemic attack (TIA), and cerebral infarction without residual deficits; Z79.4 Long term (current) use of insulin; Z87.820 Personal history of traumatic brain injury; G40.909 Epilepsy, unspecified, not intractable, without status epilepticus; D47.3 Essential (hemorrhagic) thrombocythemia; F09 Unspecified mental disorder due to known physiological condition; M81.0 Age-related osteoporosis without current pathological fracture; B96.20 Unspecified Escherichia coli [E. coli] as the cause of diseases classified elsewhere; E61.1 Iron deficiency; L89.626 Pressure-induced deep tissue damage of left heel; L89.616 Pressure-induced deep tissue damage of right heel; L89.320 Pressure ulcer of left buttock, unstageable; M24.574 Contracture, right foot; M24.575 Contracture, left foot; M24.542 Contracture, left hand; M24.541 Contracture, right hand; Z22.322 Carrier or suspected carrier of Methicillin resistant Staphylococcus aureus; B95.2 Enterococcus as the cause of diseases classified elsewhere
CPT/HCPCS: 31720; 36415; 71045-TC; 80048-TC; 80053-TC; 80076-TC; 80202-TC; 81000-TC; 82272-TC; 82550-TC; 82728-TC; 82784; 82962-TC; 83540-TC; 83605-TC; 83615-TC; 83735-TC; 83970; 84100-TC; 84155; 84165; 84439-TC; 84443-TC; 84484-TC; 85025-TC; 85045-TC; 85730-TC; 86334; 86850-TC; 86921-TC; 87040-TC; 87081-TC; 87086-TC; 87186-TC; 94002-TC; 94003-TC; 94640; 94760-TC; 94762-TC; 94799-TC; 99082-TC; A4216; A4623; A6253; A6403; G0378; J0885; J1815; J1953; J2185; J2543; J2997; J3370; J3490; J7030; J7040; J7050; J7060; P9016-BL; P9047; U0003-CS

== ENCOUNTER 2019-12-16 06:09 | Inpatient (IN) | payer MEDICARE, OTHER ==
[2019-12-16] VITALS (49 sets, daily range): BP systolic 73–129; BP diastolic 39–92
[~2019-12-16] VITALS: Ht 154.9 cm; Wt 73.1 kg
[~2019-12-16 06:09] MED LIST changes: +MERO1VIA23 IV; +VANC500P5 IV
--- NOTE | 2019-12-16 06:13 | NUR ---
PATIENT CAME TO ER BED 8 C/O TACHYCARDIA AND TACHYPNEA BIB RA FROM [facility]. PATIENT IS A TRACH-VENT DEPENDENT AND HAS A MULLEN CATHETER IN PLACE. PATIENT ALSO HAS RIGHT UPPER PICC LINE UPON ARRIVAL. PATIENT ALSO HAS SACRAL ULCERS. PATIENT'S EYE ARE OPEN. CONNECTED TO SWITCHING OPERATOR.
[2019-12-16] MEDS ORDERED: ACETAMINOPHEN 650 MG/SUPP.RECT RC ONE ×2 (06:17→06:30)
--- NOTE | 2019-12-16 06:17 | NUR ---
RT AT BEDSIDE
[2019-12-16] MEDS ORDERED: PIPERACILLIN /TAZOBACTAM 3.375 G VIAL IV ONE (06:19)
--- NOTE | 2019-12-16 06:25 | NUR ---
BLOOD DRAWN AND SENT TO LAB.
[2019-12-16] MEDS ORDERED: ADENOSINE 6 MG/2 ML VIAL ONE ×2 (06:27→06:44)
--- NOTE | 2019-12-16 06:28 | NUR ---
URINE COLLECTED AND SENT TO LAB.
[2019-12-16] MEDS ORDERED: ADENOSINE 6 MG/2 ML VIAL IVP ONE ×2 (06:30→07:00)
[2019-12-16] MEDS ORDERED: VANCOMYCIN 1 GM in IV D5W 250 ML IV ONE (06:30)
[2019-12-16] MEDS ORDERED: PIPERACILLIN /TAZOBACTAM 3.375 G in IV D5W 50 ML IV ONE (06:30)
--- NOTE | 2019-12-16 06:48 | NUR ---
PATIENT IS GIVEN A BED BATH.
[2019-12-16] MEDS ORDERED: DILTIAZEM HCL IV 125 MG in IV D5W 100 ML IV ONE (07:00)
[2019-12-16] MEDS ORDERED: VANCOMYCIN 1 GM VIAL ONE (07:17)
--- NOTE | 2019-12-16 07:18 | NUR ---
PATIENT'S CARDIZEM DRIP IS CHANGED FROM 5MG TO 10MG
[2019-12-16 07:21] LABS: ALANINE AMINOTRANSFERASE 10 U/L (12-78); ALKALINE PHOSPHATASE 223 U/L (46-116); ASPARTATE AMINOTRANSFERASE 22 U/L (15-37); B-TYPE NATRIURETIC PEPTIDE 8114 PG/ML (0-125); BILIRUBIN,DIRECT 0.3 mg/dL (0.0-0.2); BILIRUBIN,TOTAL 0.4 mg/dL (0.2-1.0); CARBON DIOXIDE 18 mmol/L (21-32); CHLORIDE 104 mmol/L (98-107); CREATININE 2.4 mg/dL (0.6-1.3); GLUCOSE 171 mg/dL (74-106); POTASSIUM 3.9 mmol/L (3.5-5.1); SODIUM SERUM 138 mmol/L (136-145); TOTAL PROTEIN, SERUM 8.7 g/dL (6.4-8.2); UREA NITROGEN, BLOOD 74 mg/dL (7-18)
[2019-12-16] MEDS ORDERED: IV NS 0.9% 500 ML BAG IV ONE ×2 (07:30→08:30)
--- NOTE | 2019-12-16 07:31 | NUR ---
CARDIZEM DRIP CHANGED FROM 10 TO 15MG, PER MD'S ORDER.
[2019-12-16 07:38] LABS: APPEARANCE,URINE CLOUDY (CLEAR); BILIRUBIN,URINE NEGATIVE (NEGATIVE); BLOOD, URINE LARGE Ery/uL (NEGATIVE); COLOR,URINE YELLOW (YELLOW); KETONES,URINE NEGATIVE (NEGATIVE); LEUKOCYTE ESTERASE ,URINE LARGE (NEGATIVE); NITRITE, URINE POSITIVE (NEGATIVE); PH,URINE 8.5 (5.0-8.0); PROTEIN,URINE >=300 mg/dl (NEGATIVE); UGLUCOSE NEGATIVE (NEGATIVE); UROBILINOGEN,URINE 0.2 EU/dL (0.2)
[2019-12-16 07:39] LABS: BASOPHILS % (AUTO) 0.1 % (0.0-2.0); EOSINOPHILS % (AUTO) 0.1 % (0.0-6.0); HEMATOCRIT 31 % (39-51); HEMOGLOBIN 8.7 g/dL (13.5-17.5); LYMPHOCYTES # (AUTO) 1.5 /CMM (0.8-4.8); LYMPHOCYTES % (AUTO) 9.3 % (20.0-44.0); MEAN CORPUSCULAR HGB CONC 28 g/dl (31.0-36.0); MEAN CORPUSCULAR VOLUME 96 fL (80-96); MONOCYTES # (AUTO) 0.2 /CMM (0.1-1.30); MONOCYTES % (AUTO) 1.1 % (2.0-12.0); NEUTROPHILS # (AUTO) 14.4 /CMM (1.8-8.9); NEUTROPHILS % (AUTO) 89.4 % (43.0-81.0); PLATELET COUNT (AUTO) 655 /CMM (150-450); RED BLOOD CELL COUNT(AUTO) 3.21 MIL/uL (4.5-6.0); WHITE BLOOD COUNT (AUTO) 16.1 K/uL (4.3-11.0)
--- NOTE | 2019-12-16 07:41 | NUR ---
COVID SWAB CALLED
--- NOTE | 2019-12-16 07:42 | NUR ---
REPORT GIVEN TO YONI GARRIDO FOR CORA.
--- NOTE | 2019-12-16 07:45 | NUR ---
VENT SETTINGS: TIDAL VOL 500 PEEP: 5 O2: 40% RATE: 28
--- NOTE | 2019-12-16 08:05 | NUR ---
BED ASSIGNED 256
[2019-12-16 08:16] LABS: BACTERIA,URINE Many /HPF (None Seen); RBC,URINE 21-50 /HPF (0-2); SQUAMOUS EPITHELIAL CELL,UR Rare /HPF (None Seen)
[2019-12-16 08:29] LABS: BAND % (MANUAL) 8 % (0.0-5.0); LYMPHOCYTES % (MANUAL) 9 % (16-48); NEUTROPHILS % (MANUAL) 83 (42-76)
--- NOTE | 2019-12-16 08:53 | NUR ---
REPORT GIVEN TO ARTEMIO GARRIDO OF ICU
--- NOTE | 2019-12-16 09:18 | NUR ---
PANEL ON-CALL PAGED
[2019-12-16] MEDS ORDERED: LEVA15HF4 IH (09:39)
[2019-12-16] MEDS ORDERED: ZINC220T4 GT (09:39)
[2019-12-16] MEDS ORDERED: VIT1TABL46 GT (09:39)
[2019-12-16] MEDS ORDERED: HYDR-4384 PO (09:39)
[2019-12-16] MEDS ORDERED: FERR325T23 GT (09:39)
[2019-12-16] MEDS ORDERED: QUERCETIN GT (09:39)
[2019-12-16] MEDS ORDERED: NUT.237L30 GT (09:39)
[2019-12-16] MEDS ORDERED: NUTR1PAC14 GT (09:39)
[2019-12-16] MEDS ORDERED: LEVA0.6320 IH (09:39)
[2019-12-16] MEDS ORDERED: ACET-2605 GT (09:39)
[2019-12-16] MEDS ORDERED: SACC250C GT (09:39)
[2019-12-16] MEDS ORDERED: HYDR-4384 GT (09:39)
[2019-12-16] MEDS ORDERED: AMIN887L GT (09:39)
--- NOTE | 2019-12-16 10:02 | NUR ---
pt transferred to icu 256 with same mech vent and settings. mech vent plugged on red outlet with alarms on and functioning. garcia @ bedside. Addendum: 12/16/19 at 1003 by MEI SHEIKH RT Amended: Links added.
[2019-12-16] MEDS ORDERED: FEE PK DOSING 1 MIN EA MC ONE (10:26)
[2019-12-16] MEDS ORDERED: MAG HYDROX/AL HYDROX/SIMETH 30 ML UDC PO PRN (10:30)
[2019-12-16] MEDS ORDERED: HYDROCODONE/APAP 5/325MG 1 EACH TABLET PO PRN (10:30)
[2019-12-16] MEDS ORDERED: MAGNESIUM HYDROXIDE 30 ML UDC PO PRN (10:30)
[2019-12-16] MEDS ORDERED: ZOLPIDEM TARTRATE 5 MG TABLET PO PRN (10:30)
[2019-12-16] MEDS ORDERED: ACETAMINOPHEN 325 MG TABLET PO PRN (10:30)
[2019-12-16] MEDS: IV NS 0.9% 1,000 ML IV PRN ×3 (11:07→20:42)
[2019-12-16 11:27] LABS: ABG BASE EXCESS -10.7 mmol/L; ABG OXYGEN SATURATION 98.8 % (92.0-98.5); ABG PCO2 20.9 mmHg (35.0-45.0); ABG PH 7.402 (7.350-7.450); ABG PO2 148.8 mmHg (75.0-100.0); AaDO2 112.4 mmHg; COHb 0.3 % (0.5-1.5); MetHb 0.3 % (0.0-1.5); O2Hb 98.2 % (94.0-97.0); PEEP,BG 5 cm H2O; SITE, ABG Left Radial; VT, ABG 500 mL
[2019-12-16] MEDS: PIPERACILLIN /TAZOBACTAM 2.25 G in IV D5W 50 ML IV SCH ×2 (11:55→17:30)
[2019-12-16] MEDS: HEPARIN SODIUM, PORCINE 5000 UNITS/1 ML VIAL SQ SCH ×2 (11:56→20:07)
[2019-12-16] MEDS: Z GUARD REMEDY 2 OZ OINT TP PRN (14:32)
[2019-12-16] MEDS: NOREPINEPHRINE 8 MG in IV NS 0.9% 242 ML IV PRN ×2 (15:54→15:56)
[2019-12-16] MEDS ORDERED: LORAZEPAM INJ 2 MG/ML VIAL IV ONE (17:00)
[2019-12-16] MEDS: NOREPINEPHRINE 32 MG in IV NS 0.9% 218 ML IV PRN (18:34)
--- NOTE | 2019-12-16 19:26 | NUR ---
ICU/RN CLOSING NOTE PT WAS RECEIVED FROM ER, TRACHED TO VENT WITH GTUBE CLAMPED. TMAX WAS 102.7 TYLENOL GIVEN VIA GT, PT APPEARS TO BE SEIZING OR HAVING CHILLS, ATIVAN WAS GIVEN BUT DID NOT HELP. DR. BABB WAS AWARE OF THE HR 150-160'S, STATED TO BE PHYSIOLOGIC AND TREAT FEVER. DR FONG WAS AWARE OF UO 60CC X 8 HRS, DID NOT PLACE NEW ORDERS. NOTED THE PRESSURE ULCERS ON THE BUTTOCKS AND SCARUM, DRESSINGS APPLIED UNTIL SEEN BY ORDER CONTROL CLERK BLOOD BANK. STARTED ON LEVOPHED DUE TO TO HYPOTENSION (PLS SEE IV SPREADSHEET FOR TITRATION DETAILS). GAVE REPORT TO PM SHIFT
[2019-12-16 20:43] LABS: APPEARANCE,URINE CLEAR (CLEAR); BILIRUBIN,URINE NEGATIVE (NEGATIVE); BLOOD, URINE LARGE Ery/uL (NEGATIVE); COLOR,URINE YELLOW (YELLOW); KETONES,URINE NEGATIVE (NEGATIVE); LEUKOCYTE ESTERASE ,URINE LARGE (NEGATIVE); NITRITE, URINE NEGATIVE (NEGATIVE); PROTEIN,URINE 100 mg/dl (NEGATIVE); UGLUCOSE NEGATIVE (NEGATIVE); UROBILINOGEN,URINE 0.2 EU/dL (0.2)
[2019-12-16 21:01] LABS: BACTERIA,URINE None seen /HPF (None Seen); SQUAMOUS EPITHELIAL CELL,UR Few /HPF (None Seen)
[2019-12-16 21:02] LABS: EOSINOPHIL,URINE None Seen
[2019-12-16 21:04] LABS: CREATININE, URINE 87.5 MG/DL (30.0-125.0); URINE TOTAL PROTEIN 312.7 mg/dL (0-11.9)
[2019-12-17] VITALS (88 sets, daily range): BP systolic 73–211; BP diastolic 15–92
[2019-12-17] MEDS: PIPERACILLIN /TAZOBACTAM 2.25 G in IV D5W 50 ML IV SCH (00:07)
[2019-12-17] MEDS ORDERED: ADENOSINE 6 MG/2 ML VIAL IVP ONE (01:00)
[2019-12-17] MEDS ORDERED: ADENOSINE 6 MG/2 ML VIAL ONE (01:13)
[2019-12-17] MEDS: METOPROLOL TARTRATE INJ 5 MG/5 ML AMPUL IVP PRN ×2 (02:09→02:43)
--- NOTE | 2019-12-17 04:31 | NUR ---
Patient jennifer down to 30s and went asystole and code blue initiated. high quality cpr initiated with help of icu team recieved rosc of patient at 0441. Robert tuttle placed new central line in right groin with good blood return. Will continue to monitor patient. Please see code blue sheet.
--- NOTE | 2019-12-17 04:45 | NUR ---
0431 rt team(5) responded to code blue cpr initiated by rn and continued by rt. pt remained on vent per protocol. 0441 ROSC achieved and abg drawn. Addendum: 12/17/19 at 0537 by DEWAYNE URENA RT Amended: Links added.
[2019-12-17] MEDS ORDERED: PHENYLEPHRINE 10 MG/ML VIAL ONE (04:50)
[2019-12-17] MEDS ORDERED: SODIUM BICARBONATE SYR 50 MEQ/50 ML DISP.SYRIN ONE (05:00)
[2019-12-17] MEDS ORDERED: SODIUM BICARBONATE SYR 50 MEQ/50 ML DISP.SYRIN IV ONE (05:00)
[2019-12-17] MEDS ORDERED: PHENYLEPHRINE 100 MG in IV NS 0.9% 240 ML IV PRN (05:00)
--- NOTE | 2019-12-17 05:00 | NUR ---
rr increased to 32 post cpr and abg results due to a verbal order from mandie tuttle Addendum: 12/17/19 at 0526 by DEWAYNE URENA RT Amended: Links added.
[2019-12-17 05:02] LABS: ABG BASE EXCESS -26.5 mmol/L; ABG OXYGEN SATURATION 99.9 % (92.0-98.5); ABG PCO2 26.4 mmHg (35.0-45.0); ABG PH 6.873 (7.350-7.450); ABG PO2 518.7 mmHg (75.0-100.0); AaDO2 167.9 mmHg; COHb 0.3 % (0.5-1.5); MetHb 0.3 % (0.0-1.5); O2Hb 99.3 % (94.0-97.0); PEEP,BG 5 cm H2O; SITE, ABG Right Femoral; VENT MODE, BG VENT- AC; VT, ABG 500 mL
[2019-12-17 05:06] LABS: BASOPHILS # (AUTO) 0.2 /CMM (0.0-0.2); BASOPHILS % (AUTO) 0.3 % (0.0-2.0); EOSINOPHILS % (AUTO) 0.4 % (0.0-6.0); HEMATOCRIT 26 % (39-51); LYMPHOCYTES # (AUTO) 3.6 /CMM (0.8-4.8); MEAN CORPUSCULAR HGB CONC 25 g/dl (31.0-36.0); MEAN CORPUSCULAR VOLUME 104 fL (80-96); MONOCYTES # (AUTO) 1.8 /CMM (0.1-1.30); NEUTROPHILS # (AUTO) 53.8 /CMM (1.8-8.9); NEUTROPHILS % (AUTO) 90.3 % (43.0-81.0); PLATELET COUNT (AUTO) 510 /CMM (150-450); RED BLOOD CELL COUNT(AUTO) 2.48 MIL/uL (4.5-6.0)
[2019-12-17 05:11] LABS: HEMOGLOBIN 6.5 g/dL (13.5-17.5); WHITE BLOOD COUNT (AUTO) 59.5 K/uL (4.3-11.0)
[2019-12-17] MEDS: Sodium Bicarbonate 150 MEQ in IV D5W 1,000 ML IV PRN ×3 (05:16→17:09)
[2019-12-17] MEDS: PHENYLEPHRINE 100 MG in IV NS 0.9% 240 ML IV PRN (05:23)
[2019-12-17 05:25] LABS: THYROID STIMULATING HORMONE 2.085 uIU/mL (0.358-3.74)
[2019-12-17 05:28] LABS: ALBUMIN 1.5 g/dL (3.4-5.0); BILIRUBIN,TOTAL 0.5 mg/dL (0.2-1.0); CREATININE 3.3 mg/dL (0.6-1.3); MAGNESIUM 2.4 mg/dL (1.8-2.4); PHOSPHORUS 7.7 mg/dL (2.5-4.9); TOTAL PROTEIN, SERUM 7.3 g/dL (6.4-8.2)
[2019-12-17 05:33] LABS: POTASSIUM 8.8 mmol/L (3.5-5.1)
[2019-12-17] MEDS ORDERED: Calcium Gluconate 0.465 MEQ/ML VIAL IV ONE (06:00)
[2019-12-17] MEDS ORDERED: SODIUM POLYSTYRENE SULFONATE 15 G/60 ML BOTTLE PO ONE (06:00)
[2019-12-17] MEDS ORDERED: DEXTROSE 50%-WATER 50 ML DISP.SYRIN IVP ONE (06:00)
[2019-12-17] MEDS ORDERED: MEROPENEM 1 G in IV NS 0.9% 100 ML IV SCH (06:00)
[2019-12-17] MEDS ORDERED: INSULIN REGULAR, HUMAN 100 UNIT/ML 10 ML VIAL IV ONE (06:00)
[2019-12-17] MEDS ORDERED: ALBUTEROL FS 2.5 MG/3 ML VIAL.NEB CONTNEB ONE (06:00)
[2019-12-17] MEDS ORDERED: SODIUM POLYSTYRENE SULFONATE 15 G/60 ML BOTTLE ONE ×2 (06:05→06:08)
[2019-12-17 06:07] LABS: BAND % (MANUAL) 40 % (0.0-5.0); LYMPHOCYTES % (MANUAL) 6 % (16-48); MONOCYTES % (MANUAL) 4 % (0-11.0); NEUTROPHILS % (MANUAL) 50 (42-76)
[2019-12-17] MEDS ORDERED: MEROPENEM 1 G VIAL IV ONE (06:15)
[2019-12-17 06:56] LABS: ABG BASE EXCESS -20.6 mmol/L; ABG OXYGEN SATURATION 99.6 % (92.0-98.5); ABG PCO2 21.5 mmHg (35.0-45.0); ABG PH 7.123 (7.350-7.450); AaDO2 261.5 mmHg; COHb 0.3 % (0.5-1.5); MetHb 0.4 % (0.0-1.5); O2Hb 98.9 % (94.0-97.0); PEEP,BG 5 cm H2O; SITE, ABG Right Radial; VENT MODE, BG AC 32 500 100% +5; VT, ABG 500 mL
--- NOTE | 2019-12-17 06:59 | NUR ---
patient remains in stable but critical condition. patient tolerating vent setting well. will ednorse care to am rn for continuity of care.
[2019-12-17] MEDS ORDERED: MEROPENEM 500 MG in IV NS 0.9% 50 ML IV ONE (07:00)
[2019-12-17] MEDS: PANTOPRAZOLE 40 MG TABLET.DR PO SCH (07:15)
[2019-12-17] MEDS: HYDROCORTISONE SOD SUCCINATE 100 MG/2 ML VIAL IV SCH ×4 (07:15→17:57)
[2019-12-17] MEDS: NOREPINEPHRINE 32 MG in IV NS 0.9% 218 ML IV PRN (07:39)
[2019-12-17 07:44] LABS: CALCIUM, SERUM 9.4 mg/dL (8.5-10.1); CREATININE 3.4 mg/dL (0.6-1.3); POTASSIUM 5.6 mmol/L (3.5-5.1)
--- NOTE | 2019-12-17 07:58 | NUR ---
NUMERICAL CONTROL TOOL PROGRAMMER NOTE RELAYED CRITICAL LABS TO DR BENSON LACTIC ACID 18.6, CO2 9. CLARIFIED HEPARIN ORDER WITH DR BENSON WITH ORDERS TO HOLD DOSE.
[2019-12-17] MEDS ORDERED: VANCOMYCIN 0.75 GM in IV D5W 250 ML IV SCH (08:00)
[2019-12-17] MEDS: HEPARIN SODIUM, PORCINE 5000 UNITS/1 ML VIAL SQ SCH ×2 (08:01→21:00)
[2019-12-17 09:00] LABS: ABG BASE EXCESS -18.2 mmol/L; ABG PCO2 18.3 mmHg (35.0-45.0); ABG PH 7.235 (7.350-7.450); AaDO2 239.7 mmHg; COHb 0.6 % (0.5-1.5); MetHb 0.6 % (0.0-1.5); O2Hb 98.8 % (94.0-97.0); PEEP,BG 5 cm H2O; SITE, ABG Right Radial; VT, ABG 500 mL
--- NOTE | 2019-12-17 10:00 | NUR ---
horticultural specialty grower note informed dr france regarding patient glucose 475 with orders received.
[2019-12-17] MEDS ORDERED: EPINEPHRINE (1:10,000) SYRINGE 1 MG/10 ML DISP.SYRIN IVP ONE (10:13)
--- NOTE | 2019-12-17 10:19 | NUR ---
agricultural produce sorter note dr peña informed of patients lactic acid 18.6 with orders to continue bicarb drip and inform renal. Dr. Knight notified.
--- NOTE | 2019-12-17 10:21 | NUR ---
TRANSIT SURVEY WORKER NOTE INFORMED BIOMED REGARDING PATIENT MONITOR NOT PERFORMING ACCURATELY AND CONTINOUSLY BEEPING. BIOMED AT BEDSIDE CHANGING THE MONITOR.
[2019-12-17] MEDS ORDERED: DEXTROSE 50%-WATER 50 ML DISP.SYRIN IV PRN (10:30)
[2019-12-17] MEDS: BLOOD SUGAR DIAGNOSTIC 1 EACH STRIP IN SCH ×2 (12:09→17:57)
[2019-12-17] MEDS: INSULIN REGULAR, HUMAN 100 UNIT/ML 3 ML VIAL SQ PRN ×2 (12:11→17:58)
--- NOTE | 2019-12-17 12:22 | NUR ---
agricultural produce packer note seen and examined by dr shoemaker.
[2019-12-17] MEDS ORDERED: BUMETANIDE INJ 4 MG in IV NS 0.9% 24 ML IV ONE (14:00)
[2019-12-17] MEDS: ONDANSETRON HCL/PF 4 MG/2 ML VIAL IVP PRN (14:02)
[2019-12-17] MEDS ORDERED: DOSING PER PHARMACY-AMIKACI IV XX PRN (16:30)
--- NOTE | 2019-12-17 17:44 | NUR ---
RT NOTE Pt received trach'd and on [facility] vent on ordered settings. Alarms are set and audible. Bmv @ hob. Vent plugged into red outlet. Pt is stable. No respiratory distress noted t/o shift. Addendum: 12/17/19 at 1819 by TOMASZ HAGER RT Amended: Links added.
[2019-12-17] MEDS: MEROPENEM 500 MG in IV NS 0.9% 100 ML IV SCH (17:57)
[2019-12-17] MEDS ORDERED: FEE PK DOSING 1 MIN EA MC ONE (18:07)
--- NOTE | 2019-12-17 20:01 | NUR ---
RT NOTE PT RECEIVED TRACHED ON MECHANICAL VENTILATION. PORTEX [address] SX DONE, TRACH SECURED AND PATENT. ALARMS ON AND AUDIBLE. VENT PLUGGED TO RED OUTLET. TOM VILLEGAS @ HOB. NO DISTRESS NOTED AT THIS TIME. WILL CONTINUE TO MONITOR T/O SHIFT. Addendum: 12/17/19 at 2001 by STACY BERUMEN RT Amended: Links added.
[2019-12-17] MEDS: AMIKACIN 300 MG in IV D5W 100 ML IV SCH (21:00)
[2019-12-18] VITALS (79 sets, daily range): BP systolic 85–131; BP diastolic 47–88
[2019-12-18] MEDS: BLOOD SUGAR DIAGNOSTIC 1 EACH STRIP IN SCH ×5 (00:24→23:49)
[2019-12-18] MEDS: INSULIN REGULAR, HUMAN 100 UNIT/ML 3 ML VIAL SQ PRN ×3 (00:46→17:20)
[2019-12-18] MEDS: PHENYLEPHRINE 100 MG in IV NS 0.9% 240 ML IV PRN ×2 (01:00→07:45)
[2019-12-18 02:56] LABS: OCCULT BLOOD STOOL POSITIVE (NEGATIVE)
[2019-12-18 04:52] LABS: BASOPHILS % (AUTO) 0.1 % (0.0-2.0); EOSINOPHILS % (AUTO) 2.7 % (0.0-6.0); HEMATOCRIT 23 % (39-51); HEMOGLOBIN 7.2 g/dL (13.5-17.5); LYMPHOCYTES # (AUTO) 0.6 /CMM (0.8-4.8); LYMPHOCYTES % (AUTO) 1.5 % (20.0-44.0); MEAN CORPUSCULAR HGB CONC 32 g/dl (31.0-36.0); MEAN CORPUSCULAR VOLUME 89 fL (80-96); MONOCYTES % (AUTO) 2.5 % (2.0-12.0); NEUTROPHILS # (AUTO) 37.6 /CMM (1.8-8.9); NEUTROPHILS % (AUTO) 93.2 % (43.0-81.0); PLATELET COUNT (AUTO) 254 /CMM (150-450); RED BLOOD CELL COUNT(AUTO) 2.57 MIL/uL (4.5-6.0)
[2019-12-18 05:10] LABS: WHITE BLOOD COUNT (AUTO) 40.4 K/uL (4.3-11.0)
[2019-12-18] MEDS: MEROPENEM 500 MG in IV NS 0.9% 100 ML IV SCH ×2 (05:27→17:21)
[2019-12-18 05:31] LABS: ALBUMIN 1.5 g/dL (3.4-5.0); BILIRUBIN,TOTAL 0.8 mg/dL (0.2-1.0); CALCIUM, SERUM 7.6 mg/dL (8.5-10.1); CREATININE 3.6 mg/dL (0.6-1.3); PHOSPHORUS 5.4 mg/dL (2.5-4.9); POTASSIUM 3.1 mmol/L (3.5-5.1); TOTAL PROTEIN, SERUM 6.9 g/dL (6.4-8.2)
[2019-12-18] MEDS: Sodium Bicarbonate 150 MEQ in IV D5W 1,000 ML IV PRN (06:23)
[2019-12-18 06:58] LABS: BAND % (MANUAL) 21 % (0.0-5.0); LYMPHOCYTES % (MANUAL) 2 % (16-48); MONOCYTES % (MANUAL) 2 % (0-11.0)
[2019-12-18 06:59] LABS: NEUTROPHILS % (MANUAL) 75 (42-76)
[2019-12-18 07:30] LABS: PTH, INTACT 372 pg/mL (15-65)
[2019-12-18 08:01] LABS: ABG BASE EXCESS -3.4 mmol/L; ABG OXYGEN SATURATION 98.3 % (92.0-98.5); ABG PCO2 26.4 mmHg (35.0-45.0); ABG PH 7.485 (7.350-7.450); AaDO2 196.8 mmHg; COHb 0.3 % (0.5-1.5); MetHb 0.2 % (0.0-1.5); O2Hb 97.8 % (94.0-97.0); SITE, ABG Left Radial
[2019-12-18] MEDS: HEPARIN SODIUM, PORCINE 5000 UNITS/1 ML VIAL SQ SCH ×2 (08:23→21:00)
[2019-12-18] MEDS: PANTOPRAZOLE 40 MG TABLET.DR PO SCH (08:26)
[2019-12-18] MEDS: HYDROCORTISONE SOD SUCCINATE 100 MG/2 ML VIAL IV SCH ×3 (08:26→16:56)
[2019-12-18] MEDS ORDERED: POTASSIUM CHLORIDE 20 MEQ TAB.PRT.SR PO ONE ×2 (08:30→12:00)
[2019-12-18] MEDS: PANTOPRAZOLE 40 MG/PACK PACK GT SCH (09:00)
[2019-12-18] MEDS ORDERED: VANCOMYCIN 1 GM in IV D5W 250 ML IV SCH (10:00)
[2019-12-18] MEDS ORDERED: POTASSIUM CHLORIDE 20 MEQ POWDER PACKET NG SCH (10:30)
[2019-12-18] MEDS ORDERED: IV D5/ 0.9% NACL 1,000 ML IV ONE (13:00)
[2019-12-18 13:07] LABS: *SPE A/G RATIO 0.4 (0.7-1.7); *SPE ALBUMIN 1.9 g/dL (2.9-4.4); *SPE ALPHA-1-GLOBULIN 0.5 g/dL (0.0-0.4); *SPE ALPHA-2-GLOBULIN 1.2 g/dL (0.4-1.0); *SPE GLOBULIN, TOTAL 4.5 g/dL (2.2-3.9); *SPE M-SPIKE Not Observed g/dL (Not Observed); *SPEGAMMA GLOBULIN 1.9 g/dL (0.4-1.8)
--- NOTE | 2019-12-18 18:29 | NUR ---
ICU/RN CLOSING NOTE: Pt remains afebrile today, Portex trach to mech vent with O2 sat > 96%-99%. Remains obtunded, aphasic. Changed the IVF to D5NS at 100 cc/hr. Fingerstick at 1800 61 mg/dl, will cont to monitor. Still awaiting for Amikacin peak level. H/H was 7.2, plt of 254, Dr. Fernandez gives an okay to give Heparin SQ, stool occult still pending at this time. Was able to titrate down Lei drip from 2.5 mcg to 1 mcg, maintained SBP >110. Had a big BM x 2 today. R femoral TLC dressing was coming off, changed with tegaderm but biopatch is not avail all day today. Will give report to manufacturing supervisor 2nd shift RN.
--- NOTE | 2019-12-18 20:43 | NUR ---
RT NOTE PT RECEIVED TRACHED ON MECHANICAL VENTILATION. PORTEX [address] AMBU BAG @ HOB. SX DONE, TRACH SECURED AND PATENT. ALARMS ON AND AUDIBLE. NO DISTRESS NOTED AT THIS TIME. PT TOLERATING 40% WELL. WILL CONTINUE TO MONITOR. Addendum: 12/18/19 at 2044 by STACY BERUMEN RT Amended: Links added.
--- NOTE | 2019-12-18 21:09 | NUR ---
Held Heparin dose because patient is positive stool ob and has small amount of bloody discharge from Penis.
[2019-12-19] VITALS (91 sets, daily range): BP systolic 95–147; BP diastolic 30–90
[2019-12-19] MEDS ORDERED: GLUCAGON,HUMAN RECOMBINANT 1 MG/VIAL VIAL IM ONE (00:30)
[2019-12-19] MEDS: IV D5/ 0.9% NACL 1,000 ML IV PRN ×2 (01:48→23:35)
[2019-12-19 04:45] LABS: BASOPHILS % (AUTO) 0.1 % (0.0-2.0); EOSINOPHILS % (AUTO) 0.5 % (0.0-6.0); HEMATOCRIT 22 % (39-51); LYMPHOCYTES # (AUTO) 0.5 /CMM (0.8-4.8); LYMPHOCYTES % (AUTO) 1.1 % (20.0-44.0); MEAN CORPUSCULAR HGB CONC 31 g/dl (31.0-36.0); MEAN CORPUSCULAR VOLUME 89 fL (80-96); MONOCYTES # (AUTO) 1.1 /CMM (0.1-1.30); MONOCYTES % (AUTO) 2.5 % (2.0-12.0); NEUTROPHILS # (AUTO) 41.4 /CMM (1.8-8.9); NEUTROPHILS % (AUTO) 95.8 % (43.0-81.0); PLATELET COUNT (AUTO) 131 /CMM (150-450); RED BLOOD CELL COUNT(AUTO) 2.49 MIL/uL (4.5-6.0)
[2019-12-19 05:04] LABS: CALCIUM, SERUM 6.9 mg/dL (8.5-10.1); CREATININE 4.2 mg/dL (0.6-1.3); MAGNESIUM 2.1 mg/dL (1.8-2.4); POTASSIUM 3.6 mmol/L (3.5-5.1)
[2019-12-19] MEDS: PHENYLEPHRINE 100 MG in IV NS 0.9% 240 ML IV PRN (05:53)
[2019-12-19] MEDS: BLOOD SUGAR DIAGNOSTIC 1 EACH STRIP IN SCH ×3 (05:54→17:19)
[2019-12-19] MEDS: MEROPENEM 500 MG in IV NS 0.9% 100 ML IV SCH (05:54)
--- NOTE | 2019-12-19 06:00 | NUR ---
NOTIFIED DR. RICKETTS THAT PATIENT HAS CRITICAL LAB VALUE OF HGB- 6.8. ORDERS TO GIVE 1 UNIT PRBC. ORDERS READ BACK AND CARRIED OUT. WILL ENDORSE TO AM LAB.
[2019-12-19 06:08] LABS: HEMOGLOBIN 6.8 g/dL (13.5-17.5); WHITE BLOOD COUNT (AUTO) 43.2 K/uL (4.3-11.0)
[2019-12-19 06:11] LABS: NEUTROPHILS % (MANUAL) 70 (42-76)
[2019-12-19 06:12] LABS: BAND % (MANUAL) 25 % (0.0-5.0); LYMPHOCYTES % (MANUAL) 1 % (16-48); MONOCYTES % (MANUAL) 4 % (0-11.0)
[2019-12-19] MEDS: INSULIN REGULAR, HUMAN 100 UNIT/ML 3 ML VIAL SQ PRN ×3 (06:21→17:21)
[2019-12-19] MEDS: AMIKACIN 300 MG in IV D5W 100 ML IV SCH (08:43)
[2019-12-19] MEDS: HEPARIN SODIUM, PORCINE 5000 UNITS/1 ML VIAL SQ SCH ×2 (09:00→20:11)
[2019-12-19] MEDS: HYDROCORTISONE SOD SUCCINATE 100 MG/2 ML VIAL IV SCH ×3 (09:16→16:37)
[2019-12-19] MEDS: PANTOPRAZOLE 40 MG/PACK PACK GT SCH (09:16)
[2019-12-19] MEDS ORDERED: MAGNESIUM HYDROXIDE 30 ML UDC GT PRN (11:30)
[2019-12-19] MEDS ORDERED: BISACODYL SUPP (10 MG) 10 MG/SUPP.RECT SUPP.RECT RC PRN (11:30)
[2019-12-19] MEDS ORDERED: NA PHOS,M-B/NA PHOS,DI-BA 1 EA ENEMA RC PRN (11:30)
[2019-12-19] MEDS ORDERED: IPRATROPIUM NEB FS 0.5 MG/2.5 ML AMPUL.NEB IH PRN (11:30)
[2019-12-19] MEDS ORDERED: EPOETIN ALFA EPBX IJ SCH (11:30)
[2019-12-19] MEDS ORDERED: DEXTROSE 10% IN WATER 250 ML BAG IV PRN (12:00)
[2019-12-19] MEDS: LINEZOLID RTU BAG 600 MG in PREMIX 1 EA IV SCH ×2 (12:19→20:05)
[2019-12-19] MEDS: SODIUM CHLORIDE 1000 MG TABLET GT SCH ×2 (12:20→16:30)
[2019-12-19] MEDS: LEVETIRACETAM SOL (5 ML) 100 MG/ML UDC GT SCH ×2 (13:15→20:06)
[2019-12-19] MEDS ORDERED: ALBUTEROL HALF STRENGTH 1.25 MG/3 ML VIAL.NEB NEB PRN (13:30)
[2019-12-19] MEDS: IPRATROPIUM NEB FS 0.5 MG/2.5 ML AMPUL.NEB IH SCH ×2 (13:32→19:53)
[2019-12-19] MEDS: ALBUTEROL HALF STRENGTH 1.25 MG/3 ML VIAL.NEB NEB SCH ×2 (13:32→19:53)
[2019-12-19] MEDS: LACTOBACILLUS RHAMNOSUS GG 1 EACH CAP.SPRINK GT SCH (16:36)
[2019-12-19] MEDS: PROSOURCE / PROSTAT (PYXIS) 30 ML UDC GT SCH (16:36)
[2019-12-19] MEDS: CEFTRIAXONE 2 G in IV D5W 100 ML IV SCH (16:36)
[2019-12-19] MEDS: CHLORHEXIDINE GLUCONATE 15 ML UDC MM SCH (16:37)
[2019-12-19] MEDS ORDERED: ARGININE/GLUTAMINE/CALCIUM BMB 1 EACH POWD.PACK GT SCH (17:00)
[2019-12-19] MEDS ORDERED: Medication Not On Formulary EA (Cran/Vitc/Mannose/Inulin/Brom (Uti-Stat Liquid) 30 MG) GT SCH (17:00)
[2019-12-19] MEDS ORDERED: BUMETANIDE INJ 4 MG in IV NS 0.9% 24 ML IV ONE (18:30)
--- NOTE | 2019-12-19 18:30 | NUR ---
ICU/RN CLOSING NOTE: Received pt this am with H/H of 6.8, gave 1 unit of PRBC as ordered, no reactions noted. Dr. Stanley made a duplicate order which was cancelled as verified with Dr. Stanley. Held Heparin as well due to low H/H per Dr. Tello. D10 and Na tab orders were held due to pt's hyperglycemia today, gave insulin per sliding scale. Placed a miscellaneous order to give D10 at 100 cc/hr if BS drops down to 80's and DC IVF D5NS as verified with Dr. Tello. Urine output this shift was only 120 cc, Dr. Pinto was informed and gave an order to start Bumex IV to run for 4 hours. Kept pt on isolation per ID due to MDRO found on urine and sputum per [place] FIELD SCOUT. Wound care done as ordered, turned and repositioned q 2 hours and as needed. Bilat heels and pressure points are off loaded at all times. Will give report to motor block mechanic.
--- NOTE | 2019-12-19 19:20 | NUR ---
SUPPLY CHAIN ANALYST NOTE RECEIVED PATIENT IN BED RESTING WITH HOB ELEVATED. PATIENT IS OBTUNDED. VENT DEPENDANT, BREATHING IS EVEN AND NON LABORED. NO SOB NOTED AT THIS TIME. ABLE TO OPEN EYES AND MOVE TO LOCALIZED PAIN. GT CLEAN, DRY, PATENT, AND CLAMPED. ON MULLEN CATH, URINE IS CLEAR AND YELLOW IN COLOR. BLANCA PICC LINE IS OCCLUDED. RIGHT FEMORAL IS CLEAN, DRY, AND PATENT. IN NO APPARENT DISTRESS NOTED AT THIS TIME. WILL CONTINUE TO MONITOR .
[2019-12-19] MEDS ORDERED: LEVETIRACETAM SOL (5 ML) 100 MG/ML UDC GT SCH (21:00)
[2019-12-19] MEDS: IV NS 0.9% 1,000 ML IV PRN (23:31)
[2019-12-20] VITALS (92 sets, daily range): BP systolic 100–143; BP diastolic 51–80
[2019-12-20] MEDS: BLOOD SUGAR DIAGNOSTIC 1 EACH STRIP IN SCH ×5 (00:18→23:45)
[2019-12-20] MEDS: INSULIN REGULAR, HUMAN 100 UNIT/ML 3 ML VIAL SQ PRN ×5 (00:19→23:46)
[2019-12-20] MEDS: ALBUTEROL HALF STRENGTH 1.25 MG/3 ML VIAL.NEB NEB SCH ×4 (01:17→19:27)
[2019-12-20] MEDS: IPRATROPIUM NEB FS 0.5 MG/2.5 ML AMPUL.NEB IH SCH ×4 (01:18→19:28)
--- NOTE | 2019-12-20 04:54 | NUR ---
RT NOTE PT rec'd trached via Portex #7 on [facility] vent on AC mode settings as charted. Pt shows no signs of resp distress or sob. Pt sx'd for thick mod amt of pale yellow secretions. Alarms are set and auidble. Vent plugged into red outlet. Ambu bag bedside. Will continue to monitor cloesly. Addendum: 12/20/19 at 0455 by REBA WALKER RT Amended: Links added.
[2019-12-20 05:17] LABS: CALCIUM, SERUM 6.4 mg/dL (8.5-10.1); CREATININE 4.4 mg/dL (0.6-1.3); MAGNESIUM 1.9 mg/dL (1.8-2.4); PHOSPHORUS 6.9 mg/dL (2.5-4.9)
[2019-12-20 05:32] LABS: POTASSIUM 2.5 mmol/L (3.5-5.1)
[2019-12-20 05:44] LABS: ABG BASE EXCESS -10.1 mmol/L; ABG OXYGEN SATURATION 91.8 % (92.0-98.5); ABG PCO2 27.7 mmHg (35.0-45.0); ABG PH 7.337 (7.350-7.450); ABG PO2 71.7 mmHg (75.0-100.0); AaDO2 181.6 mmHg; COHb 0.3 % (0.5-1.5); MetHb 0.1 % (0.0-1.5); O2Hb 91.4 % (94.0-97.0); VT, ABG 500 mL
[2019-12-20 06:48] LABS: SITE, ABG Right Radial
[2019-12-20] MEDS ORDERED: POTASSIUM CHLORIDE 20 MEQ POWDER PACKET GT ONE (07:00)
[2019-12-20] MEDS ORDERED: LACTULOSE 10 G/15 ML UDC (PYXIS) PO PRN (07:00)
[2019-12-20] MEDS ORDERED: POTASSIUM CHLORIDE 20 MEQ POWDER PACKET GT SCH (07:00)
[2019-12-20] MEDS ORDERED: POTASSIUM CHLORIDE 20 MEQ TAB.PRT.SR PO ONE (07:00)
--- NOTE | 2019-12-20 07:10 | NUR ---
RN NOTE RECEIVED PATIENT ON BED, VENT/TRACH DEPENDENT, O2 SAT IN 80'S , TRACH SUCTIONING DONE, FIO2 INCREASED TO 100% PER MD ORDER, O2 SAT UP TO 90'S AFTER FIO2 INCREASED , CONTINUE TO MONITOR , PT IS ABLE TO OPEN EYES AND MOVE TO LOCALIZED PAIN. GT CLEAN, DRY, PATENT, AND CLAMPED. MULLEN CATH DRINING TO GRAVITY WITH CLEAR , YELLOW URINE . RIGHT FEMORAL PICC LINE SITE, CLEAN, DRY AND INTACT, SR UPx3, CALL LIGHT WITHIN EASY REACH, BED LOCKED AND IN LOWEST POSITION, CONTINUE TO MONITOR .
--- NOTE | 2019-12-20 07:19 | NUR ---
CITY DESIGNER NOTE PATIENT REMAINED STABLE THROUGHOUT THE NIGHT. KEPT PATIENT CLEAN, DRY, AND COMFORTABLE. REPOSITIONED Q2H. ALL WOUND CARE RENDERED. RECEIVED CRITICAL LAB FOR POTASSIUM 2.5. DR. RICKETTS GAVE NEW ORDERS FOR POTASSIUM 60 MEQ X1 GT. ORDERS NOTED CARRIED OUT. ENDORSED TO [facility] FOR CONTINUATION OF CARE.
[2019-12-20 08:07] LABS: BASOPHILS % (AUTO) 0.1 % (0.0-2.0); EOSINOPHILS % (AUTO) 0.7 % (0.0-6.0); HEMATOCRIT 25 % (39-51); HEMOGLOBIN 7.9 g/dL (13.5-17.5); LYMPHOCYTES # (AUTO) 0.6 /CMM (0.8-4.8); LYMPHOCYTES % (AUTO) 2.5 % (20.0-44.0); MEAN CORPUSCULAR HGB CONC 32 g/dl (31.0-36.0); MEAN CORPUSCULAR VOLUME 89 fL (80-96); MONOCYTES # (AUTO) 0.9 /CMM (0.1-1.30); NEUTROPHILS # (AUTO) 21.8 /CMM (1.8-8.9); NEUTROPHILS % (AUTO) 92.7 % (43.0-81.0); PLATELET COUNT (AUTO) 71 /CMM (150-450); WHITE BLOOD COUNT (AUTO) 23.5 K/uL (4.3-11.0)
[2019-12-20] MEDS: ZINC SULFATE 220 MG CAPSULE PO SCH (08:21)
[2019-12-20] MEDS: VIT B CMPLX 3/FA/VIT C/BIOTIN 1 TAB TABLET GT SCH (08:21)
[2019-12-20] MEDS: SODIUM CHLORIDE 1000 MG TABLET GT SCH (08:21)
[2019-12-20] MEDS: LACTOBACILLUS RHAMNOSUS GG 1 EACH CAP.SPRINK GT SCH ×2 (08:21→16:47)
[2019-12-20] MEDS: LEVETIRACETAM SOL (5 ML) 100 MG/ML UDC GT SCH ×2 (08:21→20:28)
[2019-12-20] MEDS: CHLORHEXIDINE GLUCONATE 15 ML UDC MM SCH ×2 (08:21→16:47)
[2019-12-20] MEDS: ASCORBIC ACID 500 MG TABLET GT SCH (08:21)
[2019-12-20] MEDS: PANTOPRAZOLE 40 MG/PACK PACK GT SCH (08:21)
[2019-12-20] MEDS: HYDROCORTISONE SOD SUCCINATE 100 MG/2 ML VIAL IV SCH ×2 (08:22→16:47)
[2019-12-20] MEDS: PROSOURCE / PROSTAT (PYXIS) 30 ML UDC GT SCH ×2 (08:23→16:50)
[2019-12-20] MEDS: LINEZOLID RTU BAG 600 MG in PREMIX 1 EA IV SCH ×2 (08:23→20:29)
[2019-12-20] MEDS: IV D5/ 0.9% NACL 1,000 ML IV PRN (08:32)
[2019-12-20] MEDS ORDERED: Medication Not On Formulary EA (Omega-3/Dha/Epa/Fish Oil (Fish Oil 1,600 mg/5 ml Liquid) GT SCH (09:00)
[2019-12-20] MEDS ORDERED: QUERCETIN GT SCH (09:00)
[2019-12-20] MEDS ORDERED: FERROUS SULFATE (325 MG) 325 MG/TAB TABLET GT SCH (09:00)
[2019-12-20] MEDS: HEPARIN SODIUM, PORCINE 5000 UNITS/1 ML VIAL SQ SCH ×2 (09:00→20:29)
--- NOTE | 2019-12-20 09:26 | NUR ---
RN NOTES PLT=71, HEPARIN SQ D/DAMARIS PER DR MINER ORDER ,NO SIGN OF BLEEDING NOTED .
[2019-12-20 09:28] LABS: IRON, SERUM 125 ug/dl (50-175); TOTAL IRON BINDING CAPACITY 101 ug/dl (250-450)
[2019-12-20 09:37] LABS: BAND % (MANUAL) 7 % (0.0-5.0); LYMPHOCYTES % (MANUAL) 4 % (16-48); MONOCYTES % (MANUAL) 7 % (0-11.0); NEUTROPHILS % (MANUAL) 82 (42-76)
--- NOTE | 2019-12-20 10:00 | NUR ---
RN NOTES TRACH SUCTIONING DONE , VSS STABLE , CONTINUE TO MONITOR
[2019-12-20] MEDS: ACETAMINOPHEN 650 MG/SUPP.RECT RC PRN (12:27)
[2019-12-20] MEDS: MORPHINE SULFATE INJ 2 MG/ML DISP.SYRIN IV PRN (13:12)
[2019-12-20] MEDS ORDERED: Sodium Bicarbonate 50 MEQ in IV NS 0.9% 1,000 ML IV PRN (14:00)
--- NOTE | 2019-12-20 14:00 | NUR ---
RN NOTES HR IN 130'S , DR PIZARRO NOTIFED, NEW ORDER RECEIVED TO START PT ON BICARB GTT, CONTINUE TO MONITOR.
[2019-12-20] MEDS ORDERED: Sodium Bicarbonate 150 MEQ in IV NS 0.9% 1,000 ML IV PRN (14:30)
[2019-12-20] MEDS: Sodium Bicarbonate 150 MEQ in IV D5/ 0.9% NACL 1,000 ML IV PRN (15:14)
[2019-12-20] MEDS: CEFTRIAXONE 2 G in IV D5W 100 ML IV SCH (16:50)
--- NOTE | 2019-12-20 18:00 | NUR ---
RN NOTES VSS STABLE, TRACH SUCTIONED DONE PRN, VSS STABLE, NO SIGNIFICANT CHANGES NOTED ON THIS SHIFT, SR UP X3, CALL LIGHT WITHIN EASY REACH, BED LOCKED AND IN LOWEST POSITION, WILL ENDORSE TO MARKETING SEGMENT MANAGER NURSE FOR CONTINUITY OF CARE .
--- NOTE | 2019-12-20 19:15 | NUR ---
TELECOMMUNICATIONS PROFESSIONAL NOTE RECEIVED PATIENT IN BED RESTING WITH HOB ELEVATED. PATIENT IS OBTUNDED. VENT DEPENDANT, BREATHING IS EVEN AND NON LABORED. NO SOB NOTED AT THIS TIME. ABLE TO OPEN EYES, BLINK, AND MOVE TO LOCALIZED PAIN. GT CLEAN, DRY, PATENT, AND CLAMPED. ON MULLEN CATH, URINE IS CLEAR AND YELLOW IN COLOR WITH MINIMAL SEDIMENTS NOTED. RIGHT FEMORAL PICC LINE IS CLEAN, DRY, AND PATENT. ON IV FLUIDS D5 WITH 3 AMPS OF BICARB RUNNING AT 100 ML/HR. IN NO APPARENT DISTRESS NOTED AT THIS TIME. WILL CONTINUE TO MONITOR.
[2019-12-20] MEDS ORDERED: AMIKACIN 300 MG in IV D5W 100 ML IV SCH (20:00)
[2019-12-20] MEDS ORDERED: DOSING PER PHARMACY-AMIKACI IV XX PRN (20:00)
--- NOTE | 2019-12-20 20:30 | NUR ---
SUEDE CLEANER NOTE HELD HEPARIN MED PER PLATELET COUNT IS 71.
[2019-12-21] VITALS (56 sets, daily range): BP systolic 110–166; BP diastolic 66–133
[2019-12-21] MEDS: Sodium Bicarbonate 150 MEQ in IV D5/ 0.9% NACL 1,000 ML IV PRN ×2 (02:05→11:32)
[2019-12-21] MEDS: IPRATROPIUM NEB FS 0.5 MG/2.5 ML AMPUL.NEB IH SCH ×4 (02:06→20:06)
[2019-12-21] MEDS: ALBUTEROL HALF STRENGTH 1.25 MG/3 ML VIAL.NEB NEB SCH ×5 (02:06→20:06)
--- NOTE | 2019-12-21 03:08 | NUR ---
NURSING CLERK NOTE PATIENT HAD SHORT EPISODE OF V-TACH AROUND THIS TIME. STAT EKG AND TROPONIN WITH AM LABS ORDERED. VITALS ARE WNL AT THIS TIME. WILL CONTINUE TO MONITOR.
[2019-12-21 05:29] LABS: BASOPHILS % (AUTO) 0.1 % (0.0-2.0); EOSINOPHILS % (AUTO) 0.5 % (0.0-6.0); HEMATOCRIT 25 % (39-51); HEMOGLOBIN 8.1 g/dL (13.5-17.5); LYMPHOCYTES # (AUTO) 0.4 /CMM (0.8-4.8); LYMPHOCYTES % (AUTO) 2.5 % (20.0-44.0); MEAN CORPUSCULAR HGB CONC 32 g/dl (31.0-36.0); MEAN CORPUSCULAR VOLUME 88 fL (80-96); MONOCYTES # (AUTO) 1.1 /CMM (0.1-1.30); MONOCYTES % (AUTO) 6.5 % (2.0-12.0); NEUTROPHILS # (AUTO) 14.7 /CMM (1.8-8.9); NEUTROPHILS % (AUTO) 90.4 % (43.0-81.0); PLATELET COUNT (AUTO) 86 /CMM (150-450); RED BLOOD CELL COUNT(AUTO) 2.89 MIL/uL (4.5-6.0); WHITE BLOOD COUNT (AUTO) 16.3 K/uL (4.3-11.0)
[2019-12-21] MEDS: BLOOD SUGAR DIAGNOSTIC 1 EACH STRIP IN SCH ×3 (05:48→18:17)
[2019-12-21] MEDS: INSULIN REGULAR, HUMAN 100 UNIT/ML 3 ML VIAL SQ PRN ×3 (05:50→18:14)
[2019-12-21 05:51] LABS: BILIRUBIN,TOTAL 0.5 mg/dL (0.2-1.0); CALCIUM, SERUM 6.3 mg/dL (8.5-10.1); CREATININE 4.5 mg/dL (0.6-1.3); MAGNESIUM 1.7 mg/dL (1.8-2.4); PHOSPHORUS 5.2 mg/dL (2.5-4.9); TOTAL PROTEIN, SERUM 5.8 g/dL (6.4-8.2)
[2019-12-21 06:00] LABS: POTASSIUM 2.7 mmol/L (3.5-5.1)
[2019-12-21 06:01] LABS: ALBUMIN 1.4 g/dL (3.4-5.0)
--- NOTE | 2019-12-21 06:52 | NUR ---
PMO CONSULTANT NOTE PATIENT IS RESTING COMFORTABLY AT THIS TIME. ALL WOUND CARE RENDERED. REPOSITIONED Q2H. ALL DUE MEDS GIVEN AND TOLERATED WELL. ALL CRITICAL LAB VALUES REPORTED TO DR. SANNA RICKETTS. RECEIVED NEW ORDER FOR POTASSIUM POWDER 40 MEQ VIA GT, ORDER NOTED AND CARRIED OUT. PATIENT IS IN NO APPARENT DISTRESS AT THIS TIME. WILL ENDORSE TO AM SHIFT RN FOR CONTINUATION OF CARE.
[2019-12-21] MEDS ORDERED: POTASSIUM CHLORIDE 20 MEQ POWDER PACKET GT ONE (07:30)
[2019-12-21] MEDS: CHLORHEXIDINE GLUCONATE 15 ML UDC MM SCH ×2 (08:56→16:05)
[2019-12-21] MEDS: HYDROCORTISONE SOD SUCCINATE 100 MG/2 ML VIAL IV SCH ×2 (08:56→16:05)
[2019-12-21] MEDS: LEVETIRACETAM SOL (5 ML) 100 MG/ML UDC GT SCH ×2 (08:57→20:30)
[2019-12-21] MEDS: ZINC SULFATE 220 MG CAPSULE PO SCH (08:58)
[2019-12-21] MEDS: VIT B CMPLX 3/FA/VIT C/BIOTIN 1 TAB TABLET GT SCH (08:58)
[2019-12-21] MEDS: ASCORBIC ACID 500 MG TABLET GT SCH (08:58)
[2019-12-21] MEDS: LACTOBACILLUS RHAMNOSUS GG 1 EACH CAP.SPRINK GT SCH ×2 (08:58→16:04)
[2019-12-21] MEDS: PROSOURCE / PROSTAT (PYXIS) 30 ML UDC GT SCH ×2 (09:11→16:05)
[2019-12-21] MEDS: Magnesium 1GM/D5W 100ML PREMIX 100 ML IV SCH ×2 (09:12→10:30)
[2019-12-21] MEDS: LINEZOLID RTU BAG 600 MG in PREMIX 1 EA IV SCH ×2 (09:12→20:38)
[2019-12-21 10:25] LABS: BAND % (MANUAL) 4 % (0.0-5.0); METAMYELOCYTES % 1 % (0-0); MONOCYTES % (MANUAL) 6 % (0-11.0); MYELOCYTES % 1 % (0-0); NEUTROPHILS % (MANUAL) 88 (42-76)
[2019-12-21] MEDS: POTASSIUM CHLORIDE 20 MEQ POWDER PACKET NG SCH ×4 (10:30→16:03)
[2019-12-21 10:38] LABS: LYMPHOCYTES % (MANUAL) 0 % (16-48)
--- NOTE | 2019-12-21 11:00 | NUR ---
platelets 86- per Dr. Prashant wesley to give Heparin
[2019-12-21] MEDS: CEFTAZIDIME 1 G in IV D5W 50 ML IV SCH (11:28)
[2019-12-21] MEDS: HEPARIN SODIUM, PORCINE 5000 UNITS/1 ML VIAL SQ SCH ×2 (11:29→21:00)
[2019-12-21] MEDS: MORPHINE SULFATE INJ 2 MG/ML DISP.SYRIN IV PRN ×2 (12:48→19:30)
[2019-12-21 13:21] LABS: CALCIUM, SERUM 6.4 mg/dL (8.5-10.1); CREATININE 4.2 mg/dL (0.6-1.3); POTASSIUM 3.9 mmol/L (3.5-5.1)
--- NOTE | 2019-12-21 15:30 | NUR ---
ICU/RN: CALLED [facility] AND REQUESTED SENSITIVITIES TO SPECIFIC ORGANISMS. REFER TO MISCELLANEOUS ORDER BY . SPOKE TO RIANA. THESE REQUIRE TO BE SENT OUT PER RIANA.
[2019-12-21 15:55] LABS: ABG BASE EXCESS -3.4 mmol/L; ABG OXYGEN SATURATION 87.1 % (92.0-98.5); ABG PCO2 31.1 mmHg (35.0-45.0); ABG PH 7.433 (7.350-7.450); ABG PO2 55.8 mmHg (75.0-100.0); AaDO2 193.6 mmHg; COHb 1.6 % (0.5-1.5); MetHb 0.3 % (0.0-1.5); O2Hb 85.4 % (94.0-97.0); PEEP,BG 0 cm H2O; SITE, ABG Right Radial; VT, ABG 500 mL
[2019-12-21] MEDS: ACETAMINOPHEN 650 MG/SUPP.RECT RC PRN (19:30)
--- NOTE | 2019-12-21 19:30 | NUR ---
CONSUMER LOAN MANAGER NOTES, PATIENT IN BED IN RESPIRATORY DISTRESS, WITH TACHYCARDIA AND ELEVATED TEMPERATURE, HR FLUCTUATING FROM 130S/150S AT THIS TIME WITH TEMP 100.6, AND O2 IN LOWS 90S AT THIS TIME, COOLING MEASURES INITIATED, MORPHINE AND TYLENOL SUPPOSITORY ADMINISTERED AT THIS TIME, PATIENT IN VENTILATOR WITH TRACH IN PLACED, RIGHT FEMORAL WITH TRIPLE LUMEN PATENT AND INTACT, AND IV FLUID INFUSING ORDERED, GT IN PLACED CLAMPED, NPO AT THIS TIME, ALL NEEDS PROVIDED AT THIS TIME, REPOSITIONED AT THIS TIME, BED LOCKED AND LOW POSITION, BILATERAL S/R ORDERED, WILL CONTINUE TO MONITOR CLOSELY.
--- NOTE | 2019-12-21 20:15 | NUR ---
AREA DIRECTOR NOTES, INFORMED SANNA RICKETTS THAT PATIENT WITH TACHY HR 150S, WITH TEMP 100.6 AND LOW O2 IN LOS 90S AT THIS TIME, THAT TYLENOL SUPPOSITORY AND MORPHINE ADMINISTERED SINCE 1930, AND COOLING MEASURES IN PLACED, AND LILIAM REPLIED WITH NEW ORDER FOR ATIVAN 1MG IVP Q4HRS PRN, NOTED AND CARRIED OUT.
[2019-12-21] MEDS ORDERED: LORAZEPAM INJ 2 MG/ML VIAL IV PRN ×2 (20:30→21:00)
--- NOTE | 2019-12-21 20:35 | NUR ---
ASSOCIATE PROFESSOR OF SURGERY NOTES, ABGS RESULTS REPORTED TO DR CORRAL, AND AWARE THAT O2 89% IN ABGS, FIO2 INCREASED TO 60% AT THIS TIME.
[2019-12-21] MEDS: HYDROGEL DRESSING 90 GM TUBE TP SCH (21:14)
[2019-12-22] VITALS (46 sets, daily range): BP systolic 118–139; BP diastolic 66–86
[2019-12-22] MEDS: BLOOD SUGAR DIAGNOSTIC 1 EACH STRIP IN SCH ×4 (00:51→17:39)
[2019-12-22] MEDS: INSULIN REGULAR, HUMAN 100 UNIT/ML 3 ML VIAL SQ PRN ×4 (00:53→17:39)
[2019-12-22] MEDS: Sodium Bicarbonate 150 MEQ in IV D5/ 0.9% NACL 1,000 ML IV PRN ×2 (01:52→07:21)
[2019-12-22] MEDS: IPRATROPIUM NEB FS 0.5 MG/2.5 ML AMPUL.NEB IH SCH ×4 (02:26→20:29)
[2019-12-22] MEDS: ALBUTEROL HALF STRENGTH 1.25 MG/3 ML VIAL.NEB NEB SCH ×4 (02:35→20:29)
--- NOTE | 2019-12-22 03:40 | NUR ---
RT NOTE PT rec'd trached via Portex #[address] [facility] vent on AC mode settings as charted. Pt shows no signs of resp distress or sob. Pt sx'd for thick mod amt of pale yellow secretions. Alarms are set and auidble. Vent plugged into red outlet. Ambu bag bedside. Will continue to monitor cloesly. Addendum: 12/22/19 at 0340 by REBA WALKER RT Amended: Links added.
[2019-12-22 05:08] LABS: BASOPHILS % (AUTO) 0.1 % (0.0-2.0); EOSINOPHILS % (AUTO) 1.1 % (0.0-6.0); HEMATOCRIT 25 % (39-51); HEMOGLOBIN 8.2 g/dL (13.5-17.5); LYMPHOCYTES # (AUTO) 0.5 /CMM (0.8-4.8); LYMPHOCYTES % (AUTO) 4.1 % (20.0-44.0); MEAN CORPUSCULAR HGB CONC 32 g/dl (31.0-36.0); MEAN CORPUSCULAR VOLUME 88 fL (80-96); MONOCYTES # (AUTO) 0.8 /CMM (0.1-1.30); MONOCYTES % (AUTO) 6.9 % (2.0-12.0); NEUTROPHILS # (AUTO) 10.5 /CMM (1.8-8.9); NEUTROPHILS % (AUTO) 87.8 % (43.0-81.0); RED BLOOD CELL COUNT(AUTO) 2.88 MIL/uL (4.5-6.0); WHITE BLOOD COUNT (AUTO) 11.9 K/uL (4.3-11.0)
[2019-12-22 05:31] LABS: PLATELET COUNT (AUTO) 84 /CMM (150-450)
[2019-12-22 05:45] LABS: BILIRUBIN,TOTAL 0.6 mg/dL (0.2-1.0); CALCIUM, SERUM 6.3 mg/dL (8.5-10.1); CREATININE 4.4 mg/dL (0.6-1.3); PHOSPHORUS 4.5 mg/dL (2.5-4.9); POTASSIUM 3.2 mmol/L (3.5-5.1); TOTAL PROTEIN, SERUM 5.8 g/dL (6.4-8.2)
[2019-12-22 06:23] LABS: ALBUMIN 1.4 g/dL (3.4-5.0)
--- NOTE | 2019-12-22 06:35 | NUR ---
LITHOGRAPHY CONTACT WORKER NOTES, PATIENT IN BED IN [facility] VENTILATOR WITH TRACH IN PLACED, TOLERATED SETTINGS WELL, NOW WITH FIO2 AT 60% SINCE LAST NIGHT, OTHERWISE NO SIGNIFICANT CHANGE IN CONDITION SINCE ONCE STABILIZED LAST NIGHT, RIGHT FEMORAL WITH TRIPLE LUMEN PATENT AND INTACT, AND IV FLUID INFUSING ORDERED, GT IN PLACED CLAMPED, NPO AT THIS TIME, ALL NEEDS PROVIDED AT THIS TIME, BILATERAL S/R ORDERED, WILL ENDORSE CONTINUITY OF CARE TO ONCOMING NURSE.
[2019-12-22 06:47] LABS: ABG BASE EXCESS -7.7 mmol/L; ABG OXYGEN SATURATION 88.1 % (92.0-98.5); ABG PCO2 35.6 mmHg (35.0-45.0); ABG PH 7.314 (7.350-7.450); AaDO2 177.2 mmHg; COHb 0.5 % (0.5-1.5); MetHb 0.1 % (0.0-1.5); O2Hb 87.6 % (94.0-97.0); SITE, ABG Left Radial; VENT MODE, BG AC 22 500 40% +0
--- NOTE | 2019-12-22 07:05 | NUR ---
RN NOTES RECEIVED PATIENT ON BED VENT/TRACH DEPENDENT,TOLERATING CURRENT VENT SETTING WELL, O2 SAT WNL, ON TELE SR HR IN 80'S , PT ON BICARB DRIP AT 100CC/HR RUNNING , RIGHT FEMORAL WITH TRIPLE LUMEN PATENT AND INTACT, GT IN PLACED CLAMPED, NPO AT THIS TIME, SR UP x3, CALL LIGHT WITHIN EASY REACH, BED LOCKED AND IN LOWEST POSITION, CONTINUE TO MONITOR.
[2019-12-22 08:18] LABS: ABG BASE EXCESS 0.5 mmol/L; ABG OXYGEN SATURATION 95.8 % (92.0-98.5); ABG PH 7.449 (7.350-7.450); ABG PO2 85.2 mmHg (75.0-100.0); COHb 0.7 % (0.5-1.5); MetHb 0.2 % (0.0-1.5); O2Hb 94.9 % (94.0-97.0); SITE, ABG Left Radial; VENT MODE, BG AC 22 500 60% +0
[2019-12-22] MEDS: HYDROCORTISONE SOD SUCCINATE 100 MG/2 ML VIAL IV SCH (08:43)
[2019-12-22] MEDS: CHLORHEXIDINE GLUCONATE 15 ML UDC MM SCH ×2 (08:45→16:49)
[2019-12-22] MEDS: VIT B CMPLX 3/FA/VIT C/BIOTIN 1 TAB TABLET GT SCH (08:45)
[2019-12-22] MEDS: ASCORBIC ACID 500 MG TABLET GT SCH (08:45)
[2019-12-22] MEDS: LACTOBACILLUS RHAMNOSUS GG 1 EACH CAP.SPRINK GT SCH ×2 (08:45→16:49)
[2019-12-22] MEDS: LEVETIRACETAM SOL (5 ML) 100 MG/ML UDC GT SCH ×2 (08:45→20:23)
[2019-12-22] MEDS: ZINC SULFATE 220 MG CAPSULE PO SCH (08:46)
[2019-12-22] MEDS: HYDROGEL DRESSING 90 GM TUBE TP SCH ×2 (08:47→20:38)
[2019-12-22] MEDS: PROSOURCE / PROSTAT (PYXIS) 30 ML UDC GT SCH ×2 (08:47→16:51)
[2019-12-22] MEDS: LINEZOLID RTU BAG 600 MG in PREMIX 1 EA IV SCH ×2 (08:48→21:01)
[2019-12-22] MEDS: HEPARIN SODIUM, PORCINE 5000 UNITS/1 ML VIAL SQ SCH ×2 (10:02→20:24)
[2019-12-22 10:25] LABS: BAND % (MANUAL) 6 % (0.0-5.0); LYMPHOCYTES % (MANUAL) 4 % (16-48); MONOCYTES % (MANUAL) 5 % (0-11.0); NEUTROPHILS % (MANUAL) 85 (42-76)
[2019-12-22] MEDS ORDERED: POTASSIUM CHLORIDE 20 MEQ TAB.PRT.SR PO SCH (10:30)
[2019-12-22] MEDS ORDERED: POTASSIUM CHLORIDE 20 MEQ POWDER PACKET GT ONE (10:30)
[2019-12-22] MEDS: CEFTAZIDIME 1 G in IV D5W 50 ML IV SCH (11:59)
--- NOTE | 2019-12-22 12:00 | NUR ---
RN NOTES VSS STABLE, TRACH CARE AND SUCTIONING DONE , CONTINUE TO MONITOR.
--- NOTE | 2019-12-22 15:00 | NUR ---
RN NOTES TOLERAING VENT SETTING WELL, FIO2 60%, CONTINUE TO MONITOR .
--- NOTE | 2019-12-22 18:00 | NUR ---
RN NOTES NO SIGNIFICANT CHANGES NOTED ON THIS SHIFT,TRACH CARE DONE, MULLEN DRAINING TO GRAVITY, VSS STABLE , SR UP x3, CALL LIGHT WITHIN EASY REACH, BED LOCKED AND IN LOWEST POSITION , WILL ENDORSE TO BELT AND LINK ASSEMBLY SUPERVISOR NURSE FOR CONTINUITY OF CARE .
[2019-12-22] MEDS: NEPRO 1,000 ML BOTTLE GT PRN (18:38)
--- NOTE | 2019-12-22 19:30 | NUR ---
RN NOTES RECEIVED PATIENT IN BED OBTUNDED. ON MECHANICAL VENT, VENT SETTING TOLERATING WELL ORDERED. ON TELE MONITOR SHOWS SR IN 100'S. RIGHT FEMORAL WITH TRIPLE LUMEN PATIENT AND INTACT FLUSHED WELL. GTF RUNNING AT 25CC/HR TOLERATING WELL.SAFETY MEASURES IN PLACE, CALL LIGHT WITHIN REACH. BED IN LOW AND LOCKED POSITION. WILL CONT TO MONITOR FOR CORA.
[2019-12-23] VITALS (43 sets, daily range): BP systolic 126–168; BP diastolic 77–103
[2019-12-23] MEDS: BLOOD SUGAR DIAGNOSTIC 1 EACH STRIP IN SCH ×4 (00:22→18:08)
[2019-12-23] MEDS: INSULIN REGULAR, HUMAN 100 UNIT/ML 3 ML VIAL SQ PRN ×4 (00:25→18:08)
[2019-12-23] MEDS: ALBUTEROL HALF STRENGTH 1.25 MG/3 ML VIAL.NEB NEB SCH ×3 (02:14→14:07)
[2019-12-23] MEDS: IPRATROPIUM NEB FS 0.5 MG/2.5 ML AMPUL.NEB IH SCH ×4 (02:14→20:25)
[2019-12-23 05:17] LABS: HEMATOCRIT 28 % (39-51); LYMPHOCYTES # (AUTO) 0.5 /CMM (0.8-4.8); LYMPHOCYTES % (AUTO) 2.8 % (20.0-44.0); MEAN CORPUSCULAR HGB CONC 32 g/dl (31.0-36.0); MEAN CORPUSCULAR VOLUME 89 fL (80-96); MONOCYTES # (AUTO) 1.2 /CMM (0.1-1.30); MONOCYTES % (AUTO) 7.2 % (2.0-12.0); NEUTROPHILS # (AUTO) 15.2 /CMM (1.8-8.9); PLATELET COUNT (AUTO) 106 /CMM (150-450); RED BLOOD CELL COUNT(AUTO) 3.17 MIL/uL (4.5-6.0); WHITE BLOOD COUNT (AUTO) 16.8 K/uL (4.3-11.0)
[2019-12-23 05:39] LABS: CALCIUM, SERUM 6.7 mg/dL (8.5-10.1); CREATININE 4.5 mg/dL (0.6-1.3); MAGNESIUM 2.1 mg/dL (1.8-2.4); PHOSPHORUS 4.4 mg/dL (2.5-4.9); POTASSIUM 2.9 mmol/L (3.5-5.1)
--- NOTE | 2019-12-23 07:05 | NUR ---
RN NOTES RECEIVED PATIENT ON BED VENT/TRACH DEPENDENT,TOLERATING CURRENT VENT SETTING WELL, O2 SAT WNL, ON TELE ST HR IN 110'S ,RIGHT FEMORAL WITH TRIPLE LUMEN PATENT AND INTACT, NEPHRO AT 3OCC/HR RUINING, NO RESIDUAL NOTED, SR UP x3, CALL LIGHT WITHIN EASY REACH, BED LOCKED AND IN LOWEST POSITION, CONTINUE TO MONITOR.
[2019-12-23] MEDS: POTASSIUM CL. PREMIX PERIPHER. 50 ML IV SCH ×4 (07:09→09:52)
--- NOTE | 2019-12-23 07:14 | NUR ---
RN NOTES NO CHANGES NOTED DURING SHIFT. CONTINUES ON VENT SETTING TOLERATING WELL ORDERED. NO S/S OF RESPIRATORY DISTRESS NOTED. RT FEMORAL TLC INTACT PATENT FLUSHED WELL. GT FEEDING TOLERATING WELL. BED BATH GIVEN TOLERATED WELL. WOUND CARE DONE. SAFETY MEASURES IN PLACE, CALL LIGHT WITHIN REACH. BED IN LOW AND LOCKED POSITION. WILL ENDORSE TO AM NURSE FOR CORA.
[2019-12-23] MEDS: LINEZOLID RTU BAG 600 MG in PREMIX 1 EA IV SCH ×2 (08:11→21:02)
[2019-12-23] MEDS: CHLORHEXIDINE GLUCONATE 15 ML UDC MM SCH ×2 (08:11→16:07)
[2019-12-23] MEDS: VIT B CMPLX 3/FA/VIT C/BIOTIN 1 TAB TABLET GT SCH (08:12)
[2019-12-23] MEDS: ASCORBIC ACID 500 MG TABLET GT SCH (08:12)
[2019-12-23] MEDS: HYDROCORTISONE SOD SUCCINATE 100 MG/2 ML VIAL IV SCH (08:12)
[2019-12-23] MEDS: LACTOBACILLUS RHAMNOSUS GG 1 EACH CAP.SPRINK GT SCH ×2 (08:12→16:07)
[2019-12-23] MEDS: LEVETIRACETAM SOL (5 ML) 100 MG/ML UDC GT SCH ×2 (08:12→20:08)
[2019-12-23] MEDS: ZINC SULFATE 220 MG CAPSULE PO SCH (08:13)
[2019-12-23] MEDS: HEPARIN SODIUM, PORCINE 5000 UNITS/1 ML VIAL SQ SCH (08:13)
[2019-12-23] MEDS: HYDROGEL DRESSING 90 GM TUBE TP SCH ×2 (08:14→20:17)
[2019-12-23] MEDS: PROSOURCE / PROSTAT (PYXIS) 30 ML UDC GT SCH ×2 (08:15→16:07)
[2019-12-23 08:35] LABS: BILIRUBIN,DIRECT 0.3 mg/dL (0.0-0.2)
[2019-12-23] MEDS: MORPHINE SULFATE INJ 2 MG/ML DISP.SYRIN IV PRN ×2 (08:35→15:30)
[2019-12-23] MEDS: POTASSIUM CHLORIDE 20 MEQ POWDER PACKET NG SCH ×5 (09:39→13:39)
[2019-12-23] MEDS: CEFTAZIDIME 1 G in IV D5W 50 ML IV SCH (11:51)
[2019-12-23 14:05] LABS: ABG BASE EXCESS 1.1 mmol/L; ABG OXYGEN SATURATION 94.9 % (92.0-98.5); ABG PCO2 33.9 mmHg (35.0-45.0); ABG PH 7.476 (7.350-7.450); ABG PO2 75.8 mmHg (75.0-100.0); AaDO2 242.6 mmHg; COHb 0.5 % (0.5-1.5); MetHb 0.3 % (0.0-1.5); O2Hb 94.1 % (94.0-97.0); SITE, ABG Right Radial; VENT MODE, BG ac 22 500 50% 0
[2019-12-23] MEDS ORDERED: DOSING PER PHARMACY-TOBRA INHALATION 1 EA XX PRN (15:00)
--- NOTE | 2019-12-23 15:00 | NUR ---
RN NOTES HR IN 130'S, DR BENSON NOTIFED, NEW ORDER RECEIVED FOR ATIVAN IV, CONTINUE TO MONITOR .
[2019-12-23] MEDS: LORAZEPAM INJ 2 MG/ML VIAL IV PRN ×2 (15:02→20:08)
[2019-12-23] MEDS: METOPROLOL TARTRATE INJ 5 MG/5 ML AMPUL IVP PRN ×3 (15:58→20:08)
[2019-12-23] MEDS: ACETAMINOPHEN 650 MG/SUPP.RECT RC PRN (17:23)
--- NOTE | 2019-12-23 18:00 | NUR ---
RN NOTES T=99.1 AXILLARY, COOLING MEASURES DONE, HR IN 130'S-140', DR SKINNY FERRO, NO NEW ORDER GIVEN, METOPROLOL IV GIVEN PRN PER ORDER , CONTINUE TO MONITOR
[2019-12-23] MEDS: NEPRO 1,000 ML BOTTLE GT PRN (18:46)
--- NOTE | 2019-12-23 18:49 | NUR ---
RN NOTES HR IN 120'S , O2 SAT WNL, TRACH SUCTIONING DONE , TF AT 40CC/HR RUNNING VIA GT , NO RESIDUAL NOTED, SEBAS DRINING TO GRAVITY, SR UP X3, CALL LIGHT WITHIN EASY REACH, BED LOCKED AND IN LOWEST POSITION, WILL ENDORSE TO WILDLIFE SCIENCE PROFESSOR NURSE FOR CONTINUITY OF CARE .
--- NOTE | 2019-12-23 19:30 | NUR ---
RN NOTES RECEIVED PATIENT IN BED VENT TRACH DEPENDENT. CURRENT SETTING TOLERATING WELL ORDERED. TELE MONITOR SHOWS ST HR IN 128'S. RT FEMORAL TLC INTACT PATENT FLUSHED WELL. GTF RUNNING AT 40CC/HR TOLERATING WELL NO RESIDUAL NOTED. F/C INTACT YELLOW URINE DARNING WELL TO GRAVITY. SAFETY MEASURES IN PLACE, CALL LIGHT WITHIN REACH. WILL CONT TO MONITOR FOR CORA.
[2019-12-23] MEDS: TOBRAMYCIN 80 MG/2 ML VIAL INH SCH (20:07)
[2019-12-24] VITALS (32 sets, daily range): BP systolic 120–153; BP diastolic 63–107
[2019-12-24] MEDS: INSULIN REGULAR, HUMAN 100 UNIT/ML 3 ML VIAL SQ PRN ×4 (00:10→18:20)
[2019-12-24] MEDS: ACETAMINOPHEN 650 MG/SUPP.RECT RC PRN (00:35)
[2019-12-24] MEDS: IPRATROPIUM NEB FS 0.5 MG/2.5 ML AMPUL.NEB IH SCH ×4 (02:24→20:19)
[2019-12-24 04:32] LABS: BASOPHILS % (AUTO) 0.1 % (0.0-2.0); HEMATOCRIT 28 % (39-51); HEMOGLOBIN 8.7 g/dL (13.5-17.5); LYMPHOCYTES # (AUTO) 0.7 /CMM (0.8-4.8); LYMPHOCYTES % (AUTO) 3.8 % (20.0-44.0); MEAN CORPUSCULAR HGB CONC 31 g/dl (31.0-36.0); MEAN CORPUSCULAR VOLUME 91 fL (80-96); MONOCYTES # (AUTO) 1.5 /CMM (0.1-1.30); MONOCYTES % (AUTO) 7.8 % (2.0-12.0); NEUTROPHILS # (AUTO) 17.1 /CMM (1.8-8.9); NEUTROPHILS % (AUTO) 88.3 % (43.0-81.0); PLATELET COUNT (AUTO) 127 /CMM (150-450); RED BLOOD CELL COUNT(AUTO) 3.05 MIL/uL (4.5-6.0); WHITE BLOOD COUNT (AUTO) 19.4 K/uL (4.3-11.0)
[2019-12-24 04:45] LABS: CALCIUM, SERUM 6.5 mg/dL (8.5-10.1); CREATININE 4.5 mg/dL (0.6-1.3); MAGNESIUM 1.7 mg/dL (1.8-2.4); PHOSPHORUS 4.2 mg/dL (2.5-4.9); POTASSIUM 4.2 mmol/L (3.5-5.1)
[2019-12-24] MEDS: BLOOD SUGAR DIAGNOSTIC 1 EACH STRIP IN SCH ×4 (06:01→18:16)
--- NOTE | 2019-12-24 07:00 | NUR ---
R D ENGINEER NOTES OPENING RECEIVED PATIENT IN BED. NO SOB OR DISTRESS NOTED AT THIS TIME. HR 98, VITALS TABLE. NO ISOLATION. NOTED 150 ON MULLEN. NO RESIDUAL NOTED AT GT FEEDING FLUSHED AND PATENT. IV SITE PATENT. BED AT THE LOWEST POSITION LOCKED. CALL LIGHT WITHIN REACH. WILL CONTINUE TO MONITOR THE PATIENT.
--- NOTE | 2019-12-24 07:03 | NUR ---
RN NOTES NO CHANGES NOTED DURING SHIFT.NO S/S OF RESPIRATORY DISTRESS NOTED. ALL DUE MEDIATIONS WERE GIVEN PATIENT TOLERATED WELL. NO S/S OF DISTRESS NOTED. RT FEMORAL TLC INTACT PATENT FLUIDS RUNNING WELL.KEEP EXTREMITIES OFFLOAD. BED BATH GIVEN PATIENT TOLERATED WELL. DRESSING CHANGED KEPT CLEAN DRY AND COMFORTABLE. GTF TOLERATING WELL. F/C INTACT YELLOW URINE DARNING WELL TO GRAVITY. SAFETY MEASURES IN PLACE, CALL LIGHT WITHIN REACH. WILL ENDORSE TO AM NURSE FOR CORA.
[2019-12-24] MEDS: Magnesium 1GM/D5W 100ML PREMIX 100 ML IV SCH ×2 (08:12→09:42)
[2019-12-24] MEDS: HYDROCORTISONE SOD SUCCINATE 100 MG/2 ML VIAL IV SCH (08:51)
[2019-12-24] MEDS: CHLORHEXIDINE GLUCONATE 15 ML UDC MM SCH ×2 (08:51→16:14)
[2019-12-24] MEDS: LEVETIRACETAM SOL (5 ML) 100 MG/ML UDC GT SCH ×2 (08:51→20:17)
[2019-12-24] MEDS: ASCORBIC ACID 500 MG TABLET GT SCH (08:51)
[2019-12-24] MEDS: HYDROGEL DRESSING 90 GM TUBE TP SCH ×2 (08:52→20:21)
[2019-12-24] MEDS: LACTOBACILLUS RHAMNOSUS GG 1 EACH CAP.SPRINK GT SCH ×2 (08:52→16:14)
[2019-12-24] MEDS: ZINC SULFATE 220 MG CAPSULE PO SCH (08:52)
[2019-12-24] MEDS: VIT B CMPLX 3/FA/VIT C/BIOTIN 1 TAB TABLET GT SCH (08:52)
[2019-12-24] MEDS: LINEZOLID RTU BAG 600 MG in PREMIX 1 EA IV SCH ×2 (08:52→21:05)
[2019-12-24] MEDS: TOBRAMYCIN 80 MG/2 ML VIAL INH SCH ×3 (08:53→20:17)
[2019-12-24] MEDS: PROSOURCE / PROSTAT (PYXIS) 30 ML UDC GT SCH ×2 (08:53→16:14)
[2019-12-24] MEDS: CEFTAZIDIME 1 G in IV D5W 50 ML IV SCH (12:25)
--- NOTE | 2019-12-24 19:30 | NUR ---
RN NOTES RECEIVED PATIENT IN BED OBTUNDED NO S/S OF DISTRESS NOTED. VENT SETTING TOLERATING WELL ORDERED. HR 85, VITAL SIGNS STABLE. GTF IN PLACE PATIENT TOLERATING WELL NO RESIDUAL NOTED. RT FEMORAL TLC INTACT, PATENT FLUSHES WELL. F/C INTACT YELLOW URINE RUNNING TO GRAVITY. PATIENT IS AFEBRILE. ALL SAFETY MEASURES IN PLACE, CALL LIGHT WITHIN REACH. WILL CONT TO MONITOR FOR CORA.
--- NOTE | 2019-12-24 19:42 | NUR ---
ASPHALT TAMPING MACHINE OPERATOR NOTES PATIENT IN BED COMFORTABLE. ALL NEEDS ATTENDED. NO ISOLATION. NO MAJOR CHANGES DURING SHIFT.NO FEVER DURING THE DAY. BED AT THE LOWEST POSITION LOCKED. ENDORSED TO INFORMATICS SPEC NURSE FOR CORA.
[2019-12-25] VITALS (37 sets, daily range): BP systolic 132–167; BP diastolic 68–108
[2019-12-25] MEDS: BLOOD SUGAR DIAGNOSTIC 1 EACH STRIP IN SCH ×5 (00:58→21:45)
[2019-12-25] MEDS: INSULIN REGULAR, HUMAN 100 UNIT/ML 3 ML VIAL SQ PRN ×4 (00:59→17:09)
[2019-12-25] MEDS: IPRATROPIUM NEB FS 0.5 MG/2.5 ML AMPUL.NEB IH SCH ×4 (01:26→19:31)
--- NOTE | 2019-12-25 04:00 | NUR ---
BED BATH GIVEN PATIENT TOLERATED WELL. WOUND CARE DONE ORDERED.
[2019-12-25 05:07] LABS: ALBUMIN 1.5 g/dL (3.4-5.0); BILIRUBIN,DIRECT 0.2 mg/dL (0.0-0.2); BILIRUBIN,TOTAL 0.6 mg/dL (0.2-1.0); CALCIUM, SERUM 6.8 mg/dL (8.5-10.1); CREATININE 4.2 mg/dL (0.6-1.3); PHOSPHORUS 4.5 mg/dL (2.5-4.9); POTASSIUM 3.3 mmol/L (3.5-5.1); TOTAL PROTEIN, SERUM 5.8 g/dL (6.4-8.2)
[2019-12-25 05:12] LABS: BASOPHILS % (AUTO) 0.1 % (0.0-2.0); EOSINOPHILS % (AUTO) 1.8 % (0.0-6.0); HEMATOCRIT 26 % (39-51); HEMOGLOBIN 8.1 g/dL (13.5-17.5); LYMPHOCYTES # (AUTO) 0.9 /CMM (0.8-4.8); MEAN CORPUSCULAR HGB CONC 31 g/dl (31.0-36.0); MEAN CORPUSCULAR VOLUME 92 fL (80-96); MONOCYTES # (AUTO) 0.6 /CMM (0.1-1.30); MONOCYTES % (AUTO) 3.7 % (2.0-12.0); NEUTROPHILS # (AUTO) 15.4 /CMM (1.8-8.9); NEUTROPHILS % (AUTO) 89.4 % (43.0-81.0); PLATELET COUNT (AUTO) 71 /CMM (150-450); RED BLOOD CELL COUNT(AUTO) 2.82 MIL/uL (4.5-6.0); WHITE BLOOD COUNT (AUTO) 17.2 K/uL (4.3-11.0)
[2019-12-25 05:44] LABS: BAND % (MANUAL) 5 % (0.0-5.0); LYMPHOCYTES % (MANUAL) 4 % (16-48); MONOCYTES % (MANUAL) 3 % (0-11.0); NEUTROPHILS % (MANUAL) 88 (42-76)
[2019-12-25] MEDS: NEPRO 1,000 ML BOTTLE GT PRN (06:20)
--- NOTE | 2019-12-25 06:55 | NUR ---
RN NOTES NO CHANGES NOTED DURING SHIFT. ALL MEDICATIONS GIVEN TOLERATED WELL. GTF IN PLACE FEEDING TOLERATING WELL NO RESIDUAL NOTED. RT FEMORAL TLC INTACT, PATENT FLUSHES WELL. F/C INTACT YELLOW URINE RUNNING TO GRAVITY. PATIENT IS AFEBRILE. ALL SAFETY MEASURES IN PLACE, CALL LIGHT WITHIN REACH. WILL ENDORSE TO AM NURSE FOR CORA.
--- NOTE | 2019-12-25 08:22 | NUR ---
received pt from restaurant shift leader, obtunded, SR, V/T, sat well, lungs partially congested, GT to feeding, tolerates well, f/c good urine output, v/s stable, no pain, pt turned and repositioned.
[2019-12-25] MEDS ORDERED: DEXTROSE 50%-WATER 50 ML DISP.SYRIN IV PRN (08:30)
[2019-12-25] MEDS: LEVETIRACETAM SOL (5 ML) 100 MG/ML UDC GT SCH ×2 (08:59→20:54)
[2019-12-25] MEDS: ZINC SULFATE 220 MG CAPSULE PO SCH (08:59)
[2019-12-25] MEDS: HYDROCORTISONE SOD SUCCINATE 100 MG/2 ML VIAL IV SCH (08:59)
[2019-12-25] MEDS: VIT B CMPLX 3/FA/VIT C/BIOTIN 1 TAB TABLET GT SCH (08:59)
[2019-12-25] MEDS: ASCORBIC ACID 500 MG TABLET GT SCH (08:59)
[2019-12-25] MEDS: LACTOBACILLUS RHAMNOSUS GG 1 EACH CAP.SPRINK GT SCH ×2 (08:59→16:23)
[2019-12-25] MEDS: CHLORHEXIDINE GLUCONATE 15 ML UDC MM SCH ×2 (08:59→16:23)
[2019-12-25] MEDS: PROSOURCE / PROSTAT (PYXIS) 30 ML UDC GT SCH ×2 (09:00→16:23)
[2019-12-25] MEDS: LINEZOLID RTU BAG 600 MG in PREMIX 1 EA IV SCH ×2 (09:00→20:55)
[2019-12-25] MEDS: HYDROGEL DRESSING 90 GM TUBE TP SCH ×2 (09:01→21:19)
[2019-12-25] MEDS: TOBRAMYCIN 80 MG/2 ML VIAL INH SCH ×2 (09:30→21:34)
[2019-12-25] MEDS: CEFTAZIDIME 1 G in IV D5W 50 ML IV SCH (11:11)
[2019-12-25] MEDS ORDERED: IV D5/ 0.9% NACL 1,000 ML IV ONE (11:30)
[2019-12-25] MEDS ORDERED: POTASSIUM CHLORIDE 20 MEQ POWDER PACKET GT ONE (12:00)
--- NOTE | 2019-12-25 16:11 | NUR ---
pt is resting in the bed, obtunded, on the vent, sat well, tolerates feeding, good urine output, v/s stable, no pain, pt cleaned, changed and repositioned.
--- NOTE | 2019-12-25 18:38 | NUR ---
pt transferred to [facility], ACLS followed, v/s stable, no pain.
--- NOTE | 2019-12-25 18:40 | NUR ---
TELE/RN NOTE THE PATIENT IS RECEIVED IN BED FROM ICU. THE PATIENT IS VENT AND TRACH. OBTUNDED. MULLEN CATH PRESENT. NO BLADDER DISTENSION NOTED. GT PRESENT, ABDOMEN SOFT AND NON-DISTENDED. RIGHT FEMORAL TLC PRESENT. PATIENT NPO. EXTERNAL TELE BOX READING IS SINUS TACHYCARDIA 111. BED LOW AND LOCKED. SIDE RAILS UP X3. CALL LIGHT WITHIN REACH. WILL ENDORSE TO REFUND CLERK.
--- NOTE | 2019-12-25 19:38 | NUR ---
RT NOTE PT rec'd trached via [facility] #[address] [address] [facility] vent on AC mode settings as charted. Pt shows no signs of resp distress or sob. Pt sx'd for thick mod amt of pale yellow secretions. Alarms are set and auidble. Vent plugged into red outlet. Ambu bag bedside. Will continue to monitor cloesly. Addendum: 12/25/19 at 1938 by YENI VAIL RT Amended: Links added.
--- NOTE | 2019-12-25 19:40 | NUR ---
TELE/RN OPENING NOTES: PATIENT RECEIVED IN BED. THE PATIENT IS TRACHED VIA #PORTEX, ON MECH VENT ON AC MODE SETTINGS CHARTED. OBTUNDED. MULLEN CATH PRESENT. NO BLADDER DISTENSION NOTED. GT PRESENT WITH FEEDING INFUSING AT 40MLS/HR. ABDOMEN SOFT AND NON-DISTENDED. RIGHT FEMORAL TLC PRESENT WITH D5NS AT 50MLS/HR. EXTERNAL TELE BOX READING IS SINUS TACHYCARDIA 120 WITH PAC. SAFETY MEASURES IN PLACE. BED LOW AND LOCKED. SIDE RAILS UP X3. CALL LIGHT WITHIN REACH. WILL CONTINUE TO MONITOR ACCORDINGLY.
[2019-12-25] MEDS: *INSULIN REGULAR(HUMULIN R)HUM 100 UNIT/ML VIAL SQ PRN (21:53)
--- NOTE | 2019-12-25 22:00 | NUR ---
TELE/RN NOTES: PT ACCUCHECK FOR HS IS 256. REG INSULIN 6UNITS GIVEN PER SLIDING SCALE. GTF NEPRO INFUSING @ 40MLS/HR. NO RESIDUAL NOTED. TOLERATING WELL. STABLE AT THIS TIME. WILL CONTINUE TO MONITOR ACCORDINGLY.
[2019-12-26] VITALS (8 sets, daily range): BP systolic 119–193; BP diastolic 64–114
[2019-12-26] MEDS: IPRATROPIUM NEB FS 0.5 MG/2.5 ML AMPUL.NEB IH SCH ×4 (00:40→20:16)
[2019-12-26] MEDS: BLOOD SUGAR DIAGNOSTIC 1 EACH STRIP IN SCH ×3 (06:33→17:04)
[2019-12-26] MEDS: INSULIN REGULAR, HUMAN 100 UNIT/ML 3 ML VIAL SQ PRN ×3 (06:35→17:05)
--- NOTE | 2019-12-26 06:52 | NUR ---
TELE/RN NOTES: PT ACCUCHECK FOR AC IS 344. REG INSULIN 16UNITS GIVEN PER SLIDING SCALE. GTF NEPRO INFUSING @ 40MLS/HR. NO RESIDUAL NOTED. TOLERATING WELL. STABLE AT THIS TIME. WILL CONTINUE TO MONITOR ACCORDINGLY.
--- NOTE | 2019-12-26 07:10 | NUR ---
TELE/RN CLOSING NOTES: PATIENT IN BED. THE PATIENT TOLERATING VENT SETTINGS WELL. OBTUNDED. MULLEN CATH PRESENT. TOTAL OUTPUT OF 1000ML. WOUND TREATMENT DONE. NO BLADDER DISTENSION NOTED. GT PRESENT WITH FEEDING INFUSING AT 40MLS/HR. ABDOMEN SOFT AND NON-DISTENDED. RIGHT FEMORAL TLC PRESENT WITH D5NS AT 50MLS/HR. EXTERNAL TELE BOX READING IS SINUS TACHYCARDIA 111 WITH OCCASIONAL PAC. ALL DUE MEDS GIVEN ORDERED. SAFETY MEASURES IN PLACE. BED LOW AND LOCKED. SIDE RAILS UP X3. CALL LIGHT WITHIN REACH. WILL ENDORSE TO DAY SHIFT FOR CORA.
[2019-12-26] MEDS: LEVETIRACETAM SOL (5 ML) 100 MG/ML UDC GT SCH (08:37)
[2019-12-26] MEDS: ZINC SULFATE 220 MG CAPSULE PO SCH (08:37)
[2019-12-26] MEDS: CHLORHEXIDINE GLUCONATE 15 ML UDC MM SCH ×2 (08:37→16:53)
[2019-12-26] MEDS: LINEZOLID RTU BAG 600 MG in PREMIX 1 EA IV SCH (08:37)
[2019-12-26] MEDS: LACTOBACILLUS RHAMNOSUS GG 1 EACH CAP.SPRINK GT SCH ×2 (08:37→16:53)
[2019-12-26] MEDS: ASCORBIC ACID 500 MG TABLET GT SCH (08:37)
[2019-12-26] MEDS: VIT B CMPLX 3/FA/VIT C/BIOTIN 1 TAB TABLET GT SCH (08:37)
[2019-12-26] MEDS: PROSOURCE / PROSTAT (PYXIS) 30 ML UDC GT SCH ×2 (08:39→16:53)
[2019-12-26] MEDS: TOBRAMYCIN 80 MG/2 ML VIAL INH SCH ×2 (09:27→22:34)
[2019-12-26 10:03] LABS: BASOPHILS % (AUTO) 0.1 % (0.0-2.0); HEMATOCRIT 26 % (39-51); HEMOGLOBIN 8.1 g/dL (13.5-17.5); LYMPHOCYTES # (AUTO) 0.7 /CMM (0.8-4.8); LYMPHOCYTES % (AUTO) 3.9 % (20.0-44.0); MEAN CORPUSCULAR HGB CONC 31 g/dl (31.0-36.0); MEAN CORPUSCULAR VOLUME 92 fL (80-96); MONOCYTES % (AUTO) 5.9 % (2.0-12.0); NEUTROPHILS % (AUTO) 90.1 % (43.0-81.0); PLATELET COUNT (AUTO) 73 /CMM (150-450); RED BLOOD CELL COUNT(AUTO) 2.82 MIL/uL (4.5-6.0); WHITE BLOOD COUNT (AUTO) 16.6 K/uL (4.3-11.0)
[2019-12-26] MEDS: HYDROGEL DRESSING 90 GM TUBE TP SCH ×2 (10:16→21:00)
[2019-12-26 10:36] LABS: CALCIUM, SERUM 7.2 mg/dL (8.5-10.1); CREATININE 4.4 mg/dL (0.6-1.3); MAGNESIUM 1.8 mg/dL (1.8-2.4); PHOSPHORUS 3.5 mg/dL (2.5-4.9); POTASSIUM 2.9 mmol/L (3.5-5.1)
[2019-12-26] MEDS: CEFTAZIDIME 1 G in IV D5W 50 ML IV SCH (11:58)
[2019-12-26] MEDS: NEPRO 1,000 ML BOTTLE GT PRN (12:03)
[2019-12-26 12:56] LABS: BAND % (MANUAL) 1 % (0.0-5.0); EOSINOPHILS % (MANUAL) 1 % (0-4); LYMPHOCYTES % (MANUAL) 3 % (16-48); MONOCYTES % (MANUAL) 2 % (0-11.0); NEUTROPHILS % (MANUAL) 93 (42-76)
[2019-12-26] MEDS: MORPHINE SULFATE INJ 2 MG/ML DISP.SYRIN IV PRN (16:53)
[2019-12-26] MEDS ORDERED: hydrALAZINE HCL IV 20 MG VIAL IV PRN (17:30)
[2019-12-26] MEDS ORDERED: METOPROLOL TARTRATE INJ 5 MG/5 ML AMPUL IVP PRN (17:30)
[2019-12-26] MEDS: LORAZEPAM INJ 2 MG/ML VIAL IV PRN (18:16)
--- NOTE | 2019-12-26 19:23 | NUR ---
ASSIGNMENT DESK ASSISTANT END OF SHIFT SUMMARY PT REMAINS OBTUNDED. CURRENTLY ON VENT, SEEN BY RT SATURATING 100% HOWEVER WITH LABORED BREATHING. PHARMACY TECHNICIAN PROGRAM DIRECTOR JOSE G MADE AWARE OF ELEVATED BP 210/110. MORPHINE, METOP AND ATIVAN GIVEN IVP. BP NOW DOWN TO 158/86. ABDOMEN IS ROUND, BOWEL SOUNDS ARE HYPOACTIVE. TF STOPPED W/ NO RESIDUALS NOTED. MULLEN CATH IN PLACE WITH GOOD UOP. WOUND DRESSING CHANGED PER ORDER. PT WAS SEEN AND EVALUATED BY TIMO PHARMACY TECHNICIAN PROGRAM DIRECTOR AND WAS COLLABORATING WITH JOSE G TOMLIN. STAT CHEST XRAY DONE. ENDORSED TO NIGHT NURSE SATHYA TO FOLLOW UP WITH CT CONSENTS WITH POA AND FOR CONTINUITY OF CARE.
--- NOTE | 2019-12-26 19:30 | NUR ---
TELE/RN OPENING NOTES: RECEIVED PT OBTUNDED. CURRENTLY ON VENT, SATURATING 100% HOWEVER WITH LABORED BREATHING. ABDOMEN IS ROUND, BOWEL SOUNDS ARE HYPOACTIVE. TF STOPPED W/ NO RESIDUALS NOTED. MULLEN CATH IN PLACE. TELE READING OF ST 120 WITH PACS AT THIS TIME. PER DAY SHIFT RN, CLARA, PT WAS SEEN AND EVALUATED BY TIMO TOMLIN AND WAS COLLABORATING WITH JOSE G TOMLIN. STAT CHEST XRAY DONE. CT CONSENTS TO BE SIGNED AND OBTAINED FROM POA. WILL FOLLOW UP. WILL CONTINUE TO MONITOR ACCORDINGLY.
--- NOTE | 2019-12-26 19:32 | NUR ---
TELE/RN NOTES: SPOKE WITH PATIENT'S FAMILY; OMER TO OBTAIN CONSENT FOR CT ABDOMEN PELVIS WITH CONTRAST AND CT PULMONARY ANGIOGRAM, WELL CONSENT FOR BLOOD TRANSFUSION, AND ANESTHESIA CONSENT. WITNESSED BY ANOTHER RN AND TRANSLATED BY HEMA JAIMES.
[2019-12-26] MEDS ORDERED: METRONIDAZOLE 500MG/ NS 100ML 500 MG in PREMIX 1 EA IV SCH (20:00)
--- NOTE | 2019-12-26 20:02 | NUR ---
TELE/RN NOTES: SPOKE TO CT REGARDING STAT CT ABDOMEN PELVIS WITH CONTRAST AND CT PULMONARY ANGIOGRAM, RT WAS PAGED AND WILL ARRIVE SOON TO BRING DOWN PT FOR CT. WILL CONTINUE TO MONITOR PT.
[2019-12-26] MEDS ORDERED: CT SWABBABLE VALVE TRANS SET 1 EA INFUS.SET MC ONE (20:41)
[2019-12-26] MEDS ORDERED: IOHEXOL-350 100 ML VIAL IV ONE (20:41)
[2019-12-26] MEDS ORDERED: IV NS 0.9% 250 ML IV ONE (20:42)
[2019-12-26] MEDS ORDERED: IOHEXOL-300 100 ML VIAL IV ONE (20:45)
--- NOTE | 2019-12-26 21:30 | NUR ---
TELE/RN NOTES: SPOKE WITH JOSE G REGARDING THE NEEDLE BIOPSY DRAINAGE THAT AND SAID IT CAN WAIT FOR NOW. THE CT ABDOMEN CHEST AND PELVIS WITH CONTRAST AND CT ANGIO CHEST IS THE CRITICAL. INFORMED TUCKER FROM CT ABOUT IT.
--- NOTE | 2019-12-26 21:35 | NUR ---
TELE/RN NOTES: PT HAS AN ABRASION ON THE RIGHT KNEE FROM THE GANTRY DURING THE CT SCAN. PHOTO TAKEN AND DOCUMENTED ON THE CHART. INCIDENT REPORT DONE. WOUND CONSULT ORDERED. CHARGE NURSE AWARE. CONSULTING MARINE ENGINEER AWARE. FAMILY AWARE. CLEANED THE SITE WITH NORMAL SALINE FOR NOW. APPLIED MEPILEX. WILL CONTINUE TO MONITOR.
[2019-12-26] MEDS: INSULIN GLARGINE, 100 UNIT/ML CARTRIDGE SQ SCH (22:00)
[2019-12-27] VITALS (11 sets, daily range): BP systolic 127–151; BP diastolic 64–88
[2019-12-27] MEDS: BLOOD SUGAR DIAGNOSTIC 1 EACH STRIP IN SCH ×5 (00:10→23:07)
[2019-12-27] MEDS: CARVEDILOL 6.25 MG TABLET PO SCH ×3 (00:11→21:35)
[2019-12-27] MEDS: LEVETIRACETAM SOL (5 ML) 100 MG/ML UDC GT SCH ×3 (00:15→21:35)
[2019-12-27] MEDS: IPRATROPIUM NEB FS 0.5 MG/2.5 ML AMPUL.NEB IH SCH ×4 (01:33→19:32)
[2019-12-27] MEDS: LINEZOLID RTU BAG 600 MG in PREMIX 1 EA IV SCH ×2 (01:44→13:02)
--- NOTE | 2019-12-27 06:41 | NUR ---
TELE/RN NOTES: NOTIFIED URIEL DICER OPERATOR, INITIAL BS CHECK IS 42. 2ND TIME BS CHECK AT 0630 IS 44. DICER OPERATOR ORDERED D50 50ML IVP. WILL RECEHCK BS IN 30 MINUTES. CHARGE NURSE AWARE. WILL CONT. TO MONITOR.
--- NOTE | 2019-12-27 07:08 | NUR ---
TELE/RN NOTES: RECHECKED BS AFTER D50. 129. DAY SHIFT RN ESTUARDO AWARE. WILL ENDORSE TO KEEP MONITORING PT.
--- NOTE | 2019-12-27 07:30 | NUR ---
RN OPENING NOTES RECEIVED PATIENT IN BED. OBTUNDED, ON MECH VENT, SATURATING 100%. BREATHING EVEN AND UNLABORED. ABDOMEN IS ROUND, BOWEL SOUNDS ARE HYPOACTIVE. TF STOPPED AT THIS TIME. W/ NO RESIDUALS NOTED. NPO EXCEPT MEDS PER REPORT. NO FLUIDS AT THIS TIME PER REPORT. MULLEN CATH IN PLACE. TELE READING OF SR 80 WITH OCCASIONAL PACS AT THIS TIME. PATIENT KEPT COMFORTABLE. KEPT SKIN CLEAN AND DRY AT ALL TIMES. SAFETY MEASURES KEPT IN PLACE. BED IN LOW, LOCKED POSITION WITH SR UP X2. BED ALARM ON. WILL MONIOTR ACCORDINGLY
--- NOTE | 2019-12-27 07:37 | NUR ---
TELE/RN CLOSING NOTES: PT REMAINS OBTUNDED. CURRENTLY ON VENT, SATURATING 100%. BREATHING EVEN AND UNLABORED. ABDOMEN IS ROUND, BOWEL SOUNDS ARE HYPOACTIVE. TF STOPPED AT THIS TIME. W/ NO RESIDUALS NOTED. NPO EXCEPT MEDS PER JOSE G. NO FLUIDS AT THIS TIME PER JOSE G. MULLEN CATH IN PLACE. TELE READING OF SR 80S-90S WITH OCCASIONAL PACS AT THIS TIME. JOSE G AWARE OF THE CT RESULTS. PATIENT KEPT COMFORTABLE AND INSTALLATION COORDINATOR BED. KEPT CLEAN AND DRY AT ALL TIMES. WOUND TREATMENT DONE. TURNED AND REPOSITIONED Q2HRS. SAFETY MEASURES KEPT IN PLACE. BED IN LOW, LOCKED POSITION WITH SR UP X2. ALL MEDS GIVEN ORDERED. ALL NEEDS MET AND RENDERED. ENDORSED TO DAY SHIFT HEMA MARTE FOR CORA.
[2019-12-27 08:01] LABS: BASOPHILS # (AUTO) 0.1 /CMM (0.0-0.2); BASOPHILS % (AUTO) 0.6 % (0.0-2.0); EOSINOPHILS % (AUTO) 2.1 % (0.0-6.0); HEMATOCRIT 21 % (39-51); LYMPHOCYTES # (AUTO) 0.7 /CMM (0.8-4.8); LYMPHOCYTES % (AUTO) 5.6 % (20.0-44.0); MEAN CORPUSCULAR HGB CONC 32 g/dl (31.0-36.0); MEAN CORPUSCULAR VOLUME 89 fL (80-96); MONOCYTES # (AUTO) 0.7 /CMM (0.1-1.30); MONOCYTES % (AUTO) 5.5 % (2.0-12.0); NEUTROPHILS # (AUTO) 10.5 /CMM (1.8-8.9); NEUTROPHILS % (AUTO) 86.2 % (43.0-81.0); PLATELET COUNT (AUTO) 58 /CMM (150-450); RED BLOOD CELL COUNT(AUTO) 2.41 MIL/uL (4.5-6.0); WHITE BLOOD COUNT (AUTO) 12.2 K/uL (4.3-11.0)
[2019-12-27 08:12] LABS: HEMOGLOBIN 6.8 g/dL (13.5-17.5)
[2019-12-27 08:14] LABS: CALCIUM, SERUM 7.4 mg/dL (8.5-10.1); MAGNESIUM 1.9 mg/dL (1.8-2.4); PHOSPHORUS 3.5 mg/dL (2.5-4.9)
[2019-12-27 08:23] LABS: POTASSIUM 2.4 mmol/L (3.5-5.1)
[2019-12-27] MEDS: TOBRAMYCIN 80 MG/2 ML VIAL INH SCH ×2 (08:33→21:30)
[2019-12-27] MEDS: ZINC SULFATE 220 MG CAPSULE PO SCH (08:45)
[2019-12-27] MEDS: VIT B CMPLX 3/FA/VIT C/BIOTIN 1 TAB TABLET GT SCH (08:45)
[2019-12-27] MEDS: LACTOBACILLUS RHAMNOSUS GG 1 EACH CAP.SPRINK GT SCH ×2 (08:45→16:28)
[2019-12-27] MEDS: CHLORHEXIDINE GLUCONATE 15 ML UDC MM SCH ×2 (08:45→16:28)
[2019-12-27] MEDS: METRONIDAZOLE 500MG/ NS 100ML 500 MG in PREMIX 1 EA IV SCH ×3 (08:45→23:37)
[2019-12-27] MEDS: ASCORBIC ACID 500 MG TABLET GT SCH (08:47)
[2019-12-27 08:51] LABS: BAND % (MANUAL) 2 % (0.0-5.0); EOSINOPHILS % (MANUAL) 2 % (0-4); LYMPHOCYTES % (MANUAL) 4 % (16-48); MONOCYTES % (MANUAL) 3 % (0-11.0); NEUTROPHILS % (MANUAL) 89 (42-76)
[2019-12-27] MEDS: HYDROGEL DRESSING 90 GM TUBE TP SCH ×2 (08:52→21:35)
[2019-12-27] MEDS: PROSOURCE / PROSTAT (PYXIS) 30 ML UDC GT SCH ×2 (08:52→16:29)
[2019-12-27] MEDS: POTASSIUM CL. PREMIX PERIPHER. 50 ML IV SCH ×4 (10:15→20:16)
[2019-12-27 10:48] LABS: FREE PSA 0.3 ng/mL (0.00-45); PROSTATE SPECIFIC ANTIGEN SCR 18.16 ng/mL (0.00-4.00)
--- NOTE | 2019-12-27 11:03 | NUR ---
RN NOTES JUAN HAJI AT BEDSIDE CHECKING THE PATIENT FOR PARACENTESIS. PER JUAN, THERE IS NO FLUID.
[2019-12-27] MEDS: CEFTAZIDIME 1 G in IV D5W 50 ML IV SCH (12:31)
--- NOTE | 2019-12-27 15:52 | NUR ---
rn notes: Troponin Alanis Singh NP made aware of patient's episode of V-run on telemoniotr. EKG and Trop ordered. Per Alanis Singh. Notify Dr Stanley of Trop result. Called Dr Stanley to report troponin of 0.113. per dr Stanley "That's Fine". No new orders noted.
--- NOTE | 2019-12-27 16:00 | NUR ---
urine collected, called lab for p/u
--- NOTE | 2019-12-27 17:35 | NUR ---
blood transfusion started, VSS. No adverse reaction noted. will moniotr accordingly
--- NOTE | 2019-12-27 19:00 | NUR ---
ongoing blood transfusion. VSS. No adverse reaction noted. will endorsed accordingly
--- NOTE | 2019-12-27 19:22 | NUR ---
RN CLOSING NOTES PATIENT IN STABLE CONDITION. ALL NEEDS ATTENDED AND PROVIDED. ALL DUE MEDS GIVEN ORDERED. TURNED AND REPOSITIONED PATIENT EVERY 2HRS AND NEEDED. WOUND CARE RENDERED. KEPT PATIENT SAFE AND COMFORTABLE. BED IN LOW/LOCKED POSIITON. SIDERAILS UPX2. CALL LIGHT IN REACH. ENDORSED TO NIGHT RN FOR CORA.
--- NOTE | 2019-12-27 19:30 | NUR ---
TELE/RN OPENING NOTES: RECEIVED PT OBTUNDED. CURRENTLY ON VENT, SATURATING 100% NO LABORED BREATHING. ABDOMEN IS ROUND, BOWEL SOUNDS ARE HYPOACTIVE. TF STILL ON HOLD FOR NOW ORDERED BY JOSE G HERNANDEZ NP. NO RESIDUALS NOTED. MULLEN CATH IN PLACE DRAINING CLEAR YELLOW OUTPUT. TELE READING OF SR 80-90S AT THIS TIME. RIGHT FEMORAL TLC NOTED. 1 UNIT OF PRBC STILL INFUSING AT THIS TIME. NO FEVER OR ADVERSE REACTIONS. SAFETY MEASURES IN PLACE. BED IN LOW, LOCKED POSITION WITH SR UPX2. WILL CONTINUE TO MONITOR ACCORDINGLY.
--- NOTE | 2019-12-27 20:05 | NUR ---
TELE/RN NOTES: BLOOD TRANSFUSION ENDED. VS TAKEN. BP: 137/71 WA: 76. TEMP: 97.5 RR:20. O2SAT:100. PT STABLE. NO S/S OF ADVERSE REACTIONS. WILL CONTINUE TO MONITOR.
[2019-12-27 20:19] LABS: APPEARANCE,URINE CLEAR (CLEAR); BILIRUBIN,URINE NEGATIVE (NEGATIVE); BLOOD, URINE LARGE Ery/uL (NEGATIVE); COLOR,URINE YELLOW (YELLOW); KETONES,URINE NEGATIVE (NEGATIVE); LEUKOCYTE ESTERASE ,URINE LARGE (NEGATIVE); NITRITE, URINE NEGATIVE (NEGATIVE); PROTEIN,URINE 30 mg/dl (NEGATIVE); UGLUCOSE NEGATIVE (NEGATIVE); UROBILINOGEN,URINE 0.2 EU/dL (0.2)
[2019-12-27 20:44] LABS: BACTERIA,URINE 1+ /HPF (None Seen); RBC,URINE 21-50 /HPF (0-2); SQUAMOUS EPITHELIAL CELL,UR 0-2 /HPF (None Seen); WBC,URINE 21-50 /HPF (0-3); YEAST,URINE Moderate /HPF (None Seen)
[2019-12-27] MEDS: INSULIN GLARGINE, 100 UNIT/ML CARTRIDGE SQ SCH (22:00)
--- NOTE | 2019-12-27 22:00 | NUR ---
TELE/RN NOTES: PT ACCUCHECK FOR 2200 IS 269. PT IS CURRENTLY NPO AND GTF ON HOLD. NO INSULIN ADMINISTERED. WILL CONTINUE TO MONITOR ACCORDINGLY.
[2019-12-27 22:48] LABS: HEMOGLOBIN 8.1 g/dL (13.5-17.5)
[2019-12-27] MEDS: *INSULIN REGULAR(HUMULIN R)HUM 100 UNIT/ML VIAL SQ PRN (23:07)
--- NOTE | 2019-12-27 23:09 | NUR ---
TELE/RN NOTES: RECEIVED CALL FROM LAB [facility] HERNANDEZ RESULT FOR POTASSIUM 2.8. CONTACTED GRAIN HANDLER URIEL TOMLIN. PLACED AN ORDER FOR POTASSIUM 40 MEQS IV.
[2019-12-27] MEDS ORDERED: POTASSIUM CL. PREMIX PERIPHER. 50 ML IV SCH (23:30)
[2019-12-28] VITALS: BP_SYST 116; BP_SYST 128; BP_DIAS 74; BP_DIAS 77
[2019-12-28] MEDS: POTASSIUM CL. PREMIX PERIPHER. 50 ML IV SCH ×4 (00:38→04:14)
[2019-12-28] MEDS: IPRATROPIUM NEB FS 0.5 MG/2.5 ML AMPUL.NEB IH SCH ×4 (01:34→20:03)
[2019-12-28] MEDS: LINEZOLID RTU BAG 600 MG in PREMIX 1 EA IV SCH ×2 (01:39→12:08)
--- NOTE | 2019-12-28 01:50 | NUR ---
TELE/RN NOTES: SPOKE TO [facility] IF I CAN RUN POTASSIUM AND LINEZOLID ATBX AT THE SAME TIME (DUE TO SAME DOSE SCHEDULE) IN A TRIPLE LUMEN FEMORAL IV CATH AND SAID IT'S OKAY TO RUN THEM BOTH.
[2019-12-28 04:00] VITALS: BP 116/77
--- NOTE | 2019-12-28 05:14 | NUR ---
TELE/RN NOTES: 4 BAGS OF POTASSIUM 10MEQS COMPLETED. LAB WILL DRAW BLOOD IN THE MORNING.
[2019-12-28] MEDS: BLOOD SUGAR DIAGNOSTIC 1 EACH STRIP IN SCH ×4 (06:36→22:00)
[2019-12-28] MEDS: INSULIN REGULAR, HUMAN 100 UNIT/ML 3 ML VIAL SQ PRN ×3 (06:36→17:27)
--- NOTE | 2019-12-28 06:36 | NUR ---
TELE/RN NOTES: ACCUCHECK FOR AC IS 309. COVERAGE FOR REG. INSULIN IS 16 UNITS AGGRESSIVE SLIDING SCALE. NON ADMINISTERED BECAUSE PT IS NPO. CHARGE NURSE AWARE. WILL CONTINUE TO MONITOR.
[2019-12-28 06:41] LABS: BASOPHILS % (AUTO) 0.1 % (0.0-2.0); EOSINOPHILS % (AUTO) 0.5 % (0.0-6.0); HEMATOCRIT 29 % (39-51); HEMOGLOBIN 9.2 g/dL (13.5-17.5); LYMPHOCYTES # (AUTO) 0.5 /CMM (0.8-4.8); LYMPHOCYTES % (AUTO) 5.8 % (20.0-44.0); MEAN CORPUSCULAR HGB CONC 31 g/dl (31.0-36.0); MEAN CORPUSCULAR VOLUME 93 fL (80-96); MONOCYTES # (AUTO) 0.4 /CMM (0.1-1.30); MONOCYTES % (AUTO) 4.4 % (2.0-12.0); NEUTROPHILS # (AUTO) 8.3 /CMM (1.8-8.9); NEUTROPHILS % (AUTO) 89.2 % (43.0-81.0); RED BLOOD CELL COUNT(AUTO) 3.15 MIL/uL (4.5-6.0); WHITE BLOOD COUNT (AUTO) 9.3 K/uL (4.3-11.0)
--- NOTE | 2019-12-28 06:41 | NUR ---
TELE/RN CLOSING NOTES: PATIENT REMAINS OBTUNDED. TOLERATING CURRENT VENT SETTINGS, SATURATING 100% NO LABORED BREATHING AT THIS TIME. RR 22. TF STILL ON HOLD ORDERED BY JOSE G HERNANDEZ NP. NO RESIDUALS NOTED. MULLEN CATH IN PLACE DRAINING CLEAR YELLOW OUTPUT. TELE READING OF SR 80 AT THIS TIME. RIGHT FEMORAL TLC NOTED, SL. FLUSHING WELL. ALL DUE MEDS GIVEN ORDERED. TURNED AND REPOSITIONED Q2HRS. KEPT WARM AND COMFORTABLE. KEPT CLEAN AND DRY AT ALL TIMES. ALL NEEDS MET AND RENDERED, WOUND TREATMENTS ARE DONE. SAFETY MEASURES IN PLACE. BED IN LOW, LOCKED POSITION WITH SR UPX2. WILL ENDORSE TO AM SHIFT FOR CORA.
[2019-12-28 07:18] LABS: CALCIUM, SERUM 7.5 mg/dL (8.5-10.1); CREATININE 3.9 mg/dL (0.6-1.3); MAGNESIUM 1.9 mg/dL (1.8-2.4); PHOSPHORUS 4.2 mg/dL (2.5-4.9); POTASSIUM 3.6 mmol/L (3.5-5.1)
--- NOTE | 2019-12-28 07:30 | NUR ---
PT RECEIVED RESTING COMFORTABLY IN BED WITH EYES CLOSED. NO S/S OR C/O PAIN OR DISTRESS NOTED. SIDE RAILS UP X2, CALL LIGHT LEFT WITHIN REACH. WILL CONTINUE PLAN OF CARE.
[2019-12-28 08:00] VITALS: BP 143/75
[2019-12-28] MEDS: LACTOBACILLUS RHAMNOSUS GG 1 EACH CAP.SPRINK GT SCH ×2 (08:37→16:05)
[2019-12-28] MEDS: METRONIDAZOLE 500MG/ NS 100ML 500 MG in PREMIX 1 EA IV SCH ×2 (08:37→16:05)
[2019-12-28] MEDS: LEVETIRACETAM SOL (5 ML) 100 MG/ML UDC GT SCH ×2 (08:37→21:46)
[2019-12-28] MEDS: ZINC SULFATE 220 MG CAPSULE PO SCH (08:37)
[2019-12-28] MEDS: VIT B CMPLX 3/FA/VIT C/BIOTIN 1 TAB TABLET GT SCH (08:37)
[2019-12-28] MEDS: CHLORHEXIDINE GLUCONATE 15 ML UDC MM SCH ×2 (08:38→16:05)
[2019-12-28] MEDS: CARVEDILOL 6.25 MG TABLET PO SCH ×2 (08:39→21:45)
[2019-12-28] MEDS: ASCORBIC ACID 500 MG TABLET GT SCH (08:43)
[2019-12-28] MEDS: TOBRAMYCIN 80 MG/2 ML VIAL INH SCH ×2 (09:06→20:03)
[2019-12-28] MEDS: PROSOURCE / PROSTAT (PYXIS) 30 ML UDC GT SCH ×2 (09:16→16:05)
[2019-12-28] MEDS: HYDROGEL DRESSING 90 GM TUBE TP SCH ×2 (09:16→21:47)
[2019-12-28 10:02] LABS: PLATELET COUNT (AUTO) 42 /CMM (150-450)
[2019-12-28 10:11] LABS: BAND % (MANUAL) 15 % (0.0-5.0); LYMPHOCYTES % (MANUAL) 9 % (16-48); MONOCYTES % (MANUAL) 7 % (0-11.0); NEUTROPHILS % (MANUAL) 69 (42-76)
[2019-12-28] MEDS ORDERED: NEPRO 1,000 ML BOTTLE GT PRN (11:00)
[2019-12-28] MEDS: CEFTAZIDIME 1 G in IV D5W 50 ML IV SCH (11:16)
[2019-12-28] MEDS: NEPRO 1,000 ML BOTTLE GT PRN (14:30)
--- NOTE | 2019-12-28 15:49 | NUR ---
Patient is not NPO currently @1550. Patient will start NPO midnight 12/29/2019. CT guided aspiration of right hip joint is to be done 0800am~1200pm on 12/29/2019. RN and NURSING ADMIN awared.
[2019-12-28 16:00] VITALS: BP 144/79
--- NOTE | 2019-12-28 19:24 | NUR ---
CHANGE OF SHIFT REPORT PT RESTING COMFORTABLY IN BED WITH EYES CLOSED. NO S/S OR C/O PAIN OR DISTRESS NOTED. SIDERAILS UP X2, CALL LIGHT LEFT WITHIN REACH. PT KEPT CLEAN, DRY, AND COMFORTABLE. NO SIGNIFICANT CHANGES SINCE PREVIOUS SHIFT. REPORT GIVEN TO TEZ GARRIDO.
[2019-12-28 20:00] VITALS: BP 144/82
[2019-12-28] MEDS: INSULIN GLARGINE, 100 UNIT/ML CARTRIDGE SQ SCH (22:00)
[2019-12-29] VITALS: BP 149/84
--- NOTE | 2019-12-29 | NUR ---
PATIENT NPO, FEEDING HELD, GT FLUSHED WITH WATER AND CLAMPED.
[2019-12-29] MEDS: METRONIDAZOLE 500MG/ NS 100ML 500 MG in PREMIX 1 EA IV SCH ×4 (00:04→23:35)
--- NOTE | 2019-12-29 01:19 | NUR ---
RIGHT FEMORAL CENTRAL LINE DRESSING CAME OFF, SITE CLEANSED WITH ALCOHOL PAD AND COVERED WITH GAUZE AND SECURED WITH TAPE FOR NOW. RIGHT GROIN FOLD WOUND NOTED, CLEANSED WITH NS AND PAT DRIED, COVERED WITH GAUZE, NO BLEEDING NOTED. PATIENT IS CONTRACTED, PLACED PILLOW BETWEEN THE THIGHS.
[2019-12-29] MEDS: LINEZOLID RTU BAG 600 MG in PREMIX 1 EA IV SCH ×2 (01:27→14:06)
[2019-12-29] MEDS: IPRATROPIUM NEB FS 0.5 MG/2.5 ML AMPUL.NEB IH SCH ×4 (01:39→20:02)
[2019-12-29 04:00] VITALS: BP 143/78
--- NOTE | 2019-12-29 07:00 | NUR ---
PRECISION MECHANICAL INSTRUMENT MAKER CLOSING NOTES: PATIENT IN BED, OBTUNDED. HOB ELEVATED. BED IN LOWEST AND LOCKED POSITION. BED ALARM ON. NO SOB. NOT IN PAIN. TURNED S5BECEY. BILATERAL HEELS OFFLOADED AT ALL TIMES. NPO. WOUND TREATMENT DONE, LEFT BUTTOCK- CLEANSED WITH NS, PAT DRIED, HYDROGEL APPLIED AND COVERED WITH MEPILEX DRESSING. SACRAL/BUTTOCKS WOUND- CLEANSED WITH NS, PAT DRIED, APPLIED OIL EMULSION DRESSING AND COVERED WITH MEPILEX DRESSING.
[2019-12-29] MEDS: BLOOD SUGAR DIAGNOSTIC 1 EACH STRIP IN SCH ×4 (07:01→21:24)
[2019-12-29 07:26] LABS: BASOPHILS % (AUTO) 0.1 % (0.0-2.0); EOSINOPHILS % (AUTO) 1.4 % (0.0-6.0); HEMATOCRIT 27 % (39-51); HEMOGLOBIN 8.5 g/dL (13.5-17.5); LYMPHOCYTES # (AUTO) 0.7 /CMM (0.8-4.8); MEAN CORPUSCULAR HGB CONC 32 g/dl (31.0-36.0); MEAN CORPUSCULAR VOLUME 90 fL (80-96); MONOCYTES # (AUTO) 0.6 /CMM (0.1-1.30); MONOCYTES % (AUTO) 5.3 % (2.0-12.0); NEUTROPHILS # (AUTO) 9.1 /CMM (1.8-8.9); NEUTROPHILS % (AUTO) 86.2 % (43.0-81.0); RED BLOOD CELL COUNT(AUTO) 2.95 MIL/uL (4.5-6.0); WHITE BLOOD COUNT (AUTO) 10.6 K/uL (4.3-11.0)
[2019-12-29 07:32] LABS: CALCIUM, SERUM 7.6 mg/dL (8.5-10.1); CREATININE 3.8 mg/dL (0.6-1.3); MAGNESIUM 1.7 mg/dL (1.8-2.4); PHOSPHORUS 4.8 mg/dL (2.5-4.9)
[2019-12-29 07:34] LABS: PLATELET COUNT (AUTO) 46 /CMM (150-450)
[2019-12-29 08:00] VITALS: BP 155/96
--- NOTE | 2019-12-29 08:00 | NUR ---
Noticed CL potassium and plt, informed MD who will place order.
[2019-12-29 08:09] LABS: POTASSIUM 2.5 mmol/L (3.5-5.1)
[2019-12-29 08:54] LABS: BAND % (MANUAL) 4 % (0.0-5.0); EOSINOPHILS % (MANUAL) 4 % (0-4); LYMPHOCYTES % (MANUAL) 1 % (16-48); MONOCYTES % (MANUAL) 1 % (0-11.0); NEUTROPHILS % (MANUAL) 90 (42-76)
[2019-12-29] MEDS: VIT B CMPLX 3/FA/VIT C/BIOTIN 1 TAB TABLET GT SCH (09:13)
[2019-12-29] MEDS: CHLORHEXIDINE GLUCONATE 15 ML UDC MM SCH ×2 (09:13→17:00)
[2019-12-29] MEDS: LEVETIRACETAM SOL (5 ML) 100 MG/ML UDC GT SCH ×2 (09:13→20:22)
[2019-12-29] MEDS: TOBRAMYCIN 80 MG/2 ML VIAL INH SCH ×2 (09:13→21:00)
[2019-12-29] MEDS: PROSOURCE / PROSTAT (PYXIS) 30 ML UDC GT SCH ×2 (09:13→12:39)
[2019-12-29] MEDS: ASCORBIC ACID 500 MG TABLET GT SCH (09:14)
[2019-12-29] MEDS: CARVEDILOL 6.25 MG TABLET PO SCH ×2 (09:14→20:23)
[2019-12-29] MEDS: LACTOBACILLUS RHAMNOSUS GG 1 EACH CAP.SPRINK GT SCH ×2 (09:14→17:26)
[2019-12-29] MEDS: ZINC SULFATE 220 MG CAPSULE PO SCH (09:14)
[2019-12-29] MEDS: HYDROGEL DRESSING 90 GM TUBE TP SCH ×2 (09:15→20:21)
[2019-12-29] MEDS: POTASSIUM CL. PREMIX PERIPHER. 50 ML IV SCH ×5 (10:23→23:43)
--- NOTE | 2019-12-29 11:10 | NUR ---
Patient went CT guided drainage on right hip joint accompanied by primary RN, RT and transporter, pt in stable condition. Patient on logistics system engineer during procedure.
--- NOTE | 2019-12-29 12:30 | NUR ---
Patient back from CT guided right hip drainage accompanied by primary RN, RT and transporter, in stable condition.
[2019-12-29] MEDS: CEFTAZIDIME 1 G in IV D5W 50 ML IV SCH (12:39)
[2019-12-29] MEDS: INSULIN REGULAR, HUMAN 100 UNIT/ML 3 ML VIAL SQ PRN ×2 (12:45→17:29)
[2019-12-29 16:00] VITALS: BP 132/75
--- NOTE | 2019-12-29 17:30 | NUR ---
Patient noticed blood in mouth, will hold mouth wash at this time.
--- NOTE | 2019-12-29 18:59 | NUR ---
RN Closing Patient in bed comfortably, resumed g-tube feeding and no residual, keep intact dressing on right hip s/p drainage. Reparatory even and unlabored with vent machine, skin is warm to touch, kept clean, dry. Keep bed in locked with elevated HOB for ensure airway and aspiration precaution. Call light within reach, will endorse second shift supervisor.
--- NOTE | 2019-12-29 19:10 | NUR ---
mission planner opening notes Received Pt in bed resting comfortably. Pt is obtunded and on mec.ventilator with O2 sat is 100%. No SOB. No S/S of distress noted. Tele monitor showed SR. R femoral central line with 3 lumens is clean, intact and patent. Gtube is clean, intact and infusing well nephro 40 ml/hr with 0 residual. Noted sarah cath is leaking. Will replace sarah cath as ordered. Safety precautions is maintained. Bed at low position, brakes locked, side rails upX3 and call light is within reach. Will continue to monitor.
[2019-12-29 20:00] VITALS: BP 143/81
--- NOTE | 2019-12-29 20:30 | NUR ---
instrument technologist notes Removed old sarah cath with 150 ml urine output. Inserted a new sarah cath 16 fr as ordered. Sarah cath is clean, intact and draining yellow urine. Pt tolerated activity well.
[2019-12-29] MEDS: *INSULIN REGULAR(HUMULIN R)HUM 100 UNIT/ML VIAL SQ PRN (21:32)
--- NOTE | 2019-12-29 21:32 | NUR ---
major assembly inspector notes Pt's blood sugar HS is 223. Administered regular insulin 4 units manually because unable to scan the barcode. Co-signed with HEMA Zamora. Will continue to monitor.
[2019-12-29] MEDS: INSULIN GLARGINE, 100 UNIT/ML CARTRIDGE SQ SCH (21:36)
--- NOTE | 2019-12-29 22:00 | NUR ---
universal winding machine operator closing notes Transferred continuity of care to HEAM Arroyo.
--- NOTE | 2019-12-29 22:05 | NUR ---
dovetail machine operator notes Called pharmacy and spoke with Daniel regarding blood draw for potassium. Daniel came and amelia a blood for potassium. Will endorse to HEMA Arroyo.
--- NOTE | 2019-12-29 23:21 | NUR ---
INORGANIC CHEMICAL TECHNICIAN NOTES CRITICAL LAB RESULT POTASSIUM 2.5, CHARGE NURSE AWARE; INFORMED MD; AWAITING ORDERS
[2019-12-29] MEDS ORDERED: POTASSIUM CHLORIDE 20 MEQ POWDER PACKET GT ONE (23:30)
--- NOTE | 2019-12-29 23:38 | NUR ---
KENNEL ASSISTANT NOTES MD INPUT ORDERS; SPOKE WITH PLATING TECHNICIAN PHARMACYKEM VERBALIZED HE WILL GET THE MEDICATIONS VERIFIED SOON POSSIBLE; AWAITING ORDERS; WILL CONT TO MONITOR
[2019-12-30] VITALS: BP 117/64
[2019-12-30] MEDS: POTASSIUM CL. PREMIX PERIPHER. 50 ML IV SCH (00:44)
[2019-12-30] MEDS: LINEZOLID RTU BAG 600 MG in PREMIX 1 EA IV SCH (01:22)
[2019-12-30] MEDS: ONDANSETRON HCL/PF 4 MG/2 ML VIAL IVP PRN ×2 (02:08→08:52)
--- NOTE | 2019-12-30 02:18 | NUR ---
COMPOSITION ROLL MAKER AND CUTTER NOTES EMESIS PRESENT; GTUBE FEEDING HELD; ZOFRAN ADMINISTERED; CHARGE NURSE AWARE; RT PAGED FOR DEEP SUCTION; WILL CONT TO MONITOR
[2019-12-30] MEDS: IPRATROPIUM NEB FS 0.5 MG/2.5 ML AMPUL.NEB IH SCH ×4 (02:25→20:04)
--- NOTE | 2019-12-30 02:55 | NUR ---
HOME RESTORATION SERVICE SUPERVISOR NOTES SOME EMESIS STILL PRESENT; NOT MUCH PREVIOUS; RT DEEP SUCTIONED; PATIENT BREATHING WELL; NO SOB NOTED; SATTING 100%; ABDOMEN NOW RIGID; PATIENT HAD LARGE BM EARLIER PRIOR TO ENDORSEMENT; 0 RESIDUALS; CHARGE NURSE AWARE; TUBE FEEDING STOPPED; WILL INFORM MD; WILL CONT TO MONITOR
[2019-12-30 04:00] VITALS: BP 119/72
[2019-12-30] MEDS: BLOOD SUGAR DIAGNOSTIC 1 EACH STRIP IN SCH ×4 (06:31→21:27)
--- NOTE | 2019-12-30 06:38 | NUR ---
SEWING LINE BALER CLOSING NOTES PATIENT RESTING IN BED COMFORTABLY; OBTUNDED AND OPENS EYES; TELE MONITOR READS NSR; PATIENT VENT-DEPENDENT AND TOLERATING VENT SETTINGS WELL; NO SOB NOTED; BREATHING EVEN AND UNLABORED; GTUBE IN PLACE, TUBE FEEDING HELD FOR NOW D/T EMESIS AND ABDOMINAL RIGIDITY, MD AWARE; WILL INFORM DAY SHIFT; MULLEN CATH IN PLACE, WITH YELLOW/ORANGE OUTPUT OF 900CC; R FEMORAL PICC LINE IN PLACE, ONLY BLUE LUMEN WORKING; WILL INFORM DAY SHIFT; ALL NEEDS RENDERED; SAFETY PRECAUTIONS IMPLEMENTED; BED LOCKED IN LOW POSITION; SIDE RAILSX2; WILL ENDORSE CORA TO ONCOMING SHIFT
[2019-12-30 06:59] LABS: BASOPHILS % (AUTO) 0.3 % (0.0-2.0); EOSINOPHILS % (AUTO) 0.8 % (0.0-6.0); HEMATOCRIT 26 % (39-51); HEMOGLOBIN 8.3 g/dL (13.5-17.5); LYMPHOCYTES # (AUTO) 0.6 /CMM (0.8-4.8); MEAN CORPUSCULAR HGB CONC 32 g/dl (31.0-36.0); MEAN CORPUSCULAR VOLUME 91 fL (80-96); MONOCYTES # (AUTO) 0.5 /CMM (0.1-1.30); MONOCYTES % (AUTO) 5.2 % (2.0-12.0); NEUTROPHILS # (AUTO) 8.8 /CMM (1.8-8.9); NEUTROPHILS % (AUTO) 87.7 % (43.0-81.0); RED BLOOD CELL COUNT(AUTO) 2.88 MIL/uL (4.5-6.0)
[2019-12-30 07:04] LABS: ALANINE AMINOTRANSFERASE 99 U/L (12-78); ALBUMIN 1.5 g/dL (3.4-5.0); ALKALINE PHOSPHATASE 150 U/L (46-116); ASPARTATE AMINOTRANSFERASE 37 U/L (15-37); BILIRUBIN,DIRECT 0.2 mg/dL (0.0-0.2); BILIRUBIN,TOTAL 0.5 mg/dL (0.2-1.0); TOTAL PROTEIN, SERUM 5.6 g/dL (6.4-8.2)
--- NOTE | 2019-12-30 07:25 | NUR ---
RN NOTES RECEIVED CALL FROM LABORATORY CRITICAL LAB VALUES LACTIC ACID 5.6, ,BUN 104, PLATELETS 41, KCL 2.7, NOTIFIED HOSPITAL FOR REPLACEMENT. CONTINUED MONITORING.
[2019-12-30 07:33] LABS: PLATELET COUNT (AUTO) 41 /CMM (150-450)
[2019-12-30 07:37] LABS: CALCIUM, SERUM 7.5 mg/dL (8.5-10.1); CREATININE 3.5 mg/dL (0.6-1.3); MAGNESIUM 1.6 mg/dL (1.8-2.4); PHOSPHORUS 4.4 mg/dL (2.5-4.9)
[2019-12-30 07:44] LABS: POTASSIUM 2.7 mmol/L (3.5-5.1)
--- NOTE | 2019-12-30 07:52 | NUR ---
received on 40% with 100% spo2. no sob noted. Addendum: 12/30/19 at 0753 by MEI SHEIKH RT Amended: Links added.
[2019-12-30 08:00] VITALS: BP 136/82
[2019-12-30] MEDS: TOBRAMYCIN 80 MG/2 ML VIAL INH SCH ×2 (08:10→20:28)
[2019-12-30] MEDS: METRONIDAZOLE 500MG/ NS 100ML 500 MG in PREMIX 1 EA IV SCH (08:24)
--- NOTE | 2019-12-30 08:52 | NUR ---
rn notes administered Zofran 4 mg/ml iv push for nausea/vomiting, keep hob elevated for aspiration precaution.
[2019-12-30] MEDS: ASCORBIC ACID 500 MG TABLET GT SCH (09:00)
[2019-12-30] MEDS: ZINC SULFATE 220 MG CAPSULE PO SCH (09:00)
[2019-12-30] MEDS: LACTOBACILLUS RHAMNOSUS GG 1 EACH CAP.SPRINK GT SCH ×2 (09:00→16:54)
[2019-12-30] MEDS: VIT B CMPLX 3/FA/VIT C/BIOTIN 1 TAB TABLET GT SCH (09:00)
[2019-12-30] MEDS: CARVEDILOL 6.25 MG TABLET PO SCH ×2 (09:00→20:30)
[2019-12-30] MEDS: HYDROGEL DRESSING 90 GM TUBE TP SCH ×2 (09:00→20:28)
[2019-12-30] MEDS: PROSOURCE / PROSTAT (PYXIS) 30 ML UDC GT SCH ×2 (09:00→16:59)
--- NOTE | 2019-12-30 09:00 | NUR ---
rn notes keep patient npo, and held scheduled medication, because abdomen distended and vomit x2. continued monitoring.
--- NOTE | 2019-12-30 09:30 | NUR ---
rn notes Started electrolyte replacement per hospitalist orders, order taken and carried out.
[2019-12-30 09:50] LABS: BAND % (MANUAL) 5 % (0.0-5.0); LYMPHOCYTES % (MANUAL) 3 % (16-48); MONOCYTES % (MANUAL) 3 % (0-11.0); NEUTROPHILS % (MANUAL) 89 (42-76)
[2019-12-30] MEDS: Potassium Chloride 10 MEQ, LIDOCAINE HCL/PF 1% 1 ML in IV D5W 50 ML IV SCH ×4 (10:28→14:15)
[2019-12-30] MEDS: Magnesium 1GM/D5W 100ML PREMIX 100 ML IV SCH ×5 (10:29→14:17)
--- NOTE | 2019-12-30 10:40 | NUR ---
rn notes get lab result lactic acid 5.8 increased, notified hospitalist Robert Foster for replacement. waiting for respond.
[2019-12-30] MEDS: CHLORHEXIDINE GLUCONATE 15 ML UDC MM SCH ×2 (11:42→16:55)
[2019-12-30] MEDS: Potassium Chloride 20 MEQ in IV D5W 1,000 ML IV PRN (11:43)
[2019-12-30] MEDS: CEFTAZIDIME 1 G in IV D5W 50 ML IV SCH (11:53)
[2019-12-30 12:00] VITALS: BP_SYST 106; BP_SYST 140; BP_DIAS 56; BP_DIAS 80
[2019-12-30] MEDS: LEVETIRACETAM SOL (5 ML) 100 MG/ML UDC GT SCH ×2 (13:45→20:27)
[2019-12-30] MEDS: LINEZOLID 600 MG TABLET GT SCH (13:45)
[2019-12-30] MEDS: NEPRO 1,000 ML BOTTLE GT PRN (15:14)
[2019-12-30 16:00] VITALS: BP 103/65
[2019-12-30] MEDS: METRONIDAZOLE 500 MG TABLET GT SCH (16:55)
[2019-12-30 18:15] LABS: CALCIUM, SERUM 7.3 mg/dL (8.5-10.1); CREATININE 3.5 mg/dL (0.6-1.3)
--- NOTE | 2019-12-30 18:26 | NUR ---
MANAGER LINE CLOSING NOTE PT IS IN BED, WITH G-TUBE IN PLACE AND PATENT WITH NEPHRO RUNNING AT 40ML AN HOUR, FEELING TOLERATED WELL, PT VENT DEPEND, NO DISTRESS NOTED AT THIS TIME, HOB ELEVATED AT ALL TIMES, ASPIRATION PRECAUTION GUIDELINES FOLLOWED, PT TURNED Q2 HOURS WITH HELLS ELEVATED ON PILLOWS THROUGH OUT SHIFT, PT KEPT CLEAN, DRY AND COMFORTABLE, BED LOCKED AND IN LOWEST POSITION, CALL LIGHT WITHIN REACH AND FUNCTIONING, WILL ENDORSE TO 7PM RN NURSE TO CONTINUE PLAN OF CARE
[2019-12-30 19:01] LABS: POTASSIUM 2.8 mmol/L (3.5-5.1)
[2019-12-30 20:00] VITALS: BP 114/65
[2019-12-30] MEDS: INSULIN GLARGINE, 100 UNIT/ML CARTRIDGE SQ SCH (21:28)
[2019-12-30] MEDS: *INSULIN REGULAR(HUMULIN R)HUM 100 UNIT/ML VIAL SQ PRN (21:30)
[2019-12-31] VITALS (12 sets, daily range): BP systolic 101–123; BP diastolic 56–75
[2019-12-31] MEDS: METRONIDAZOLE 500 MG TABLET GT SCH ×3 (00:01→15:47)
[2019-12-31] MEDS: LINEZOLID 600 MG TABLET GT SCH (00:01)
[2019-12-31] MEDS: IPRATROPIUM NEB FS 0.5 MG/2.5 ML AMPUL.NEB IH SCH ×4 (02:04→19:42)
[2019-12-31] MEDS: Potassium Chloride 20 MEQ in IV D5W 1,000 ML IV PRN (04:18)
--- NOTE | 2019-12-31 07:29 | NUR ---
PEANUT BLANCHER OPENING NOTES RECEIVED PATIENT IN BED, ASLEEP. PATIENT IS VENT DEPENDENT TOLERATING VENT WELL; SATURATING AT 100% AT THIS TIME; NO SOB PRESENT. TELE MONITOR WITH A CURRENT READING OF NORMAL SR 79. NO SIGNS OF PAIN SUCH FACIAL GRIMACING, MOANING OR GUARDING. G-TUBE PRESENT AND RUNNING NEPHRO @40 MLS/HR. MULLEN CATH IN PLACE DRAINING LIGHT YELLOW URINE. FEMORAL PICC IN PLACE AND INTACT. SAFETY PRECAUTIONS IN PLACE; HOB ELEVATED AT 45%, BED IN LOW POSITION AND LOCKED, RAILS UP X2, CALL LIGHT WITHIN REACH. WILL CONTINUE TO MONITOR PATIENT.
[2019-12-31] MEDS: BLOOD SUGAR DIAGNOSTIC 1 EACH STRIP IN SCH ×4 (07:50→21:56)
[2019-12-31 08:07] LABS: BASOPHILS # (AUTO) 0.1 /CMM (0.0-0.2); BASOPHILS % (AUTO) 0.6 % (0.0-2.0); BILIRUBIN,TOTAL 0.4 mg/dL (0.2-1.0); CALCIUM, SERUM 7.5 mg/dL (8.5-10.1); CREATININE 3.4 mg/dL (0.6-1.3); EOSINOPHILS % (AUTO) 0.3 % (0.0-6.0); HEMATOCRIT 21 % (39-51); LYMPHOCYTES # (AUTO) 0.6 /CMM (0.8-4.8); LYMPHOCYTES % (AUTO) 7.2 % (20.0-44.0); MAGNESIUM 2.3 mg/dL (1.8-2.4); MEAN CORPUSCULAR HGB CONC 32 g/dl (31.0-36.0); MEAN CORPUSCULAR VOLUME 92 fL (80-96); MONOCYTES # (AUTO) 0.6 /CMM (0.1-1.30); MONOCYTES % (AUTO) 6.4 % (2.0-12.0); NEUTROPHILS # (AUTO) 7.6 /CMM (1.8-8.9); NEUTROPHILS % (AUTO) 85.5 % (43.0-81.0); PHOSPHORUS 4.2 mg/dL (2.5-4.9); POTASSIUM 3.6 mmol/L (3.5-5.1); RED BLOOD CELL COUNT(AUTO) 2.32 MIL/uL (4.5-6.0); TOTAL PROTEIN, SERUM 4.8 g/dL (6.4-8.2); WHITE BLOOD COUNT (AUTO) 8.9 K/uL (4.3-11.0)
[2019-12-31 08:12] LABS: ALBUMIN 1.3 g/dL (3.4-5.0)
[2019-12-31] MEDS: PROSOURCE / PROSTAT (PYXIS) 30 ML UDC GT SCH (08:19)
[2019-12-31] MEDS: CHLORHEXIDINE GLUCONATE 15 ML UDC MM SCH ×2 (08:19→16:25)
[2019-12-31] MEDS: LACTOBACILLUS RHAMNOSUS GG 1 EACH CAP.SPRINK GT SCH ×2 (08:19→16:25)
[2019-12-31] MEDS: ASCORBIC ACID 500 MG TABLET GT SCH (08:20)
[2019-12-31] MEDS: VIT B CMPLX 3/FA/VIT C/BIOTIN 1 TAB TABLET GT SCH (08:20)
[2019-12-31] MEDS: LEVETIRACETAM SOL (5 ML) 100 MG/ML UDC GT SCH ×2 (08:20→21:47)
[2019-12-31] MEDS: CARVEDILOL 6.25 MG TABLET PO SCH ×2 (08:20→21:47)
[2019-12-31] MEDS: ZINC SULFATE 220 MG CAPSULE PO SCH (08:21)
[2019-12-31] MEDS: HYDROGEL DRESSING 90 GM TUBE TP SCH ×2 (08:23→21:48)
[2019-12-31 08:30] LABS: HEMOGLOBIN 6.7 g/dL (13.5-17.5)
[2019-12-31 08:31] LABS: PLATELET COUNT (AUTO) 17 /CMM (150-450)
--- NOTE | 2019-12-31 09:00 | NUR ---
AREA ATTENDANT NOTES LAB CALLED WITH CRITICAL LAB VALUE RESULTS; HGB 6.7 AND PLATELETS 17. CRITICAL LAB VALUES DOCUMENTED; MD CONTACTED. CHARGE NURSE NOTIFIED. WILL CONTINUE TO MONITOR PATIENT.
[2019-12-31 09:33] LABS: BAND % (MANUAL) 5 % (0.0-5.0); LYMPHOCYTES % (MANUAL) 7 % (16-48); MONOCYTES % (MANUAL) 3 % (0-11.0); NEUTROPHILS % (MANUAL) 85 (42-76)
[2019-12-31] MEDS: TOBRAMYCIN 80 MG/2 ML VIAL INH SCH ×3 (09:46→21:47)
[2019-12-31] MEDS: CEFTAZIDIME 1 G in IV D5W 50 ML IV SCH (11:58)
--- NOTE | 2019-12-31 12:50 | NUR ---
PARACHUTE HARNESS RIGGER NOTES LAB CALLED WITH A CRITICAL LAB RESULT FOR LACTIC ACID OF 10.3 CHARGE NURSE AND MD NOTIFIED. ORDERS RECEIVED. WILL CONTINUE TO MONITOR
[2019-12-31] MEDS: INSULIN REGULAR, HUMAN 100 UNIT/ML 3 ML VIAL SQ PRN (17:21)
--- NOTE | 2019-12-31 17:56 | NUR ---
HOTEL SERVICE SUPERVISOR POST-TRANSFUSION NOTES TRANSFUSION ENDED; 1 PRBC TRANSFUSED; PATIENT TOLERATED WELL. POST TRANSFUSION VS BP; 120/69 HR 92 O2 100 RESP 22 TEMP 97 WILL CONTINUE TO MONITOR PATIENT
--- NOTE | 2019-12-31 19:00 | NUR ---
PRACTICAL NURSING FACULTY CLOSING NOTES PATIENT IN BED, EYES OPEN, OBTUNDED. PATIENT IS VENT DEPENDENT TOLERATING VENT WELL; SATURATING AT 100% AT THIS TIME; NO SOB PRESENT. TELE MONITOR WITH A CURRENT READING OF NORMAL SR 91. NO SIGNS OF PAIN SUCH FACIAL GRIMACING, MOANING OR GUARDING. G-TUBE PRESENT AND RUNNING NEPHRO @40 MLS/HR. MULELN CATH IN PLACE DRAINING LIGHT YELLOW URINE WITH DAILY OUTPUT OF 550 MLS. FEMORAL PICC IN PLACE AND INTACT. 1 UNIT PRBC TRANSFUSED TODAY AND TOLERATED WELL. SAFETY PRECAUTIONS IN PLACE; HOB ELEVATED AT 45%, BED IN LOW POSITION AND LOCKED, RAILS UP X2, CALL LIGHT WITHIN REACH. WILL CONTINUE ENDORSE TO SOCIOCULTURAL ANTHROPOLOGY PROFESSOR NURSE.
--- NOTE | 2019-12-31 19:56 | NUR ---
HIM SPECIALIST NOTES RECEIVED PATIENT IN BED, EYES OPEN, OBTUNDED. PATIENT IS VENT DEPENDENT TOLERATING VENT SETTINGS TOLERATING WELL; SATURATING AT 100% AT THIS TIME; NO SOB PRESENT. TELE MONITOR WITH A CURRENT READING OF NORMAL SR 90s. NO SIGNS OF PAIN SUCH FACIAL GRIMACING, MOANING OR GUARDING. G-TUBE PRESENT AND RUNNING NEPHRO @40 MLS/HR. MULLEN CATH IN PLACE DRAINING LIGHT YELLOW URINE WITH DAILY OUTPUT OF 550 MLS. FEMORAL PICC IN PLACE AND INTACT. REPORT GIVEN BY AM NURSE BRADY RN S/P 1 UNIT PRBC TRANSFUSED TODAY AND TOLERATED WELL. SAFETY PRECAUTIONS IN PLACE; HOB ELEVATED AT 45%, BED IN LOW POSITION AND LOCKED, RAILS UP X2, CALL LIGHT WITHIN EASY REACH. WILL CONTINUE TO MONITOR ACCORDINGLY.
--- NOTE | 2019-12-31 21:53 | NUR ---
RN NOTES TOBRAMYCIN GIVEN BY RT VIA INHALATION.
[2019-12-31] MEDS: INSULIN GLARGINE, 100 UNIT/ML CARTRIDGE SQ SCH (21:55)
[2019-12-31] MEDS: *INSULIN REGULAR(HUMULIN R)HUM 100 UNIT/ML VIAL SQ PRN (21:56)
[2020-01-01] VITALS (9 sets, daily range): BP systolic 115–137; BP diastolic 64–76
[2020-01-01] MEDS: METRONIDAZOLE 500 MG TABLET GT SCH ×3 (00:26→15:06)
[2020-01-01] MEDS: IPRATROPIUM NEB FS 0.5 MG/2.5 ML AMPUL.NEB IH SCH ×4 (01:05→20:19)
[2020-01-01] MEDS: NEPRO 1,000 ML BOTTLE GT PRN (04:16)
[2020-01-01] MEDS: BLOOD SUGAR DIAGNOSTIC 1 EACH STRIP IN SCH ×4 (06:42→22:48)
[2020-01-01] MEDS: INSULIN REGULAR, HUMAN 100 UNIT/ML 3 ML VIAL SQ PRN ×2 (06:43→17:55)
--- NOTE | 2020-01-01 06:44 | NUR ---
RESOURCE CONSERVATION MANAGER NOTES ALL NEEDS ATTENDED AND MET, WOUND DRESSING CHANGE DONE ORDERED. PATIENT IN BED, EYES OPEN, OBTUNDED. PATIENT IS VENT DEPENDENT TOLERATING VENT SETTINGS TOLERATING WELL; SATURATING AT 100% AT THIS TIME; NO SOB PRESENT. TELE MONITOR WITH A CURRENT READING OF NORMAL SR 90s. NO SIGNS OF PAIN SUCH FACIAL GRIMACING, MOANING OR GUARDING. G-TUBE PRESENT AND RUNNING NEPHRO @40 MLS/HR. MULLEN CATH IN PLACE DRAINING LIGHT YELLOW URINE. FEMORAL PICC IN PLACE AND INTACT. REPORT GIVEN BY AM NURSE HEMA ABREU S/P 1 UNIT PRBC TRANSFUSED TODAY AND TOLERATED WELL. AM LABS DONE. SAFETY PRECAUTIONS IN PLACE; HOB ELEVATED AT 45%, BED IN LOW POSITION AND LOCKED, RAILS UP X2, CALL LIGHT WITHIN EASY REACH. WILL ENDORSE TO AM NURSE FOR CONTINUITY OF CARE.
--- NOTE | 2020-01-01 07:47 | NUR ---
COMBAT RIFLE CREWMEMBER OPENING NOTES PATIENT IN BED, ASLEEP. PATIENT IS VENT DEPENDENT TOLERATING VENT WELL; SATURATING AT 100% AT THIS TIME; NO SOB PRESENT. TELE MONITOR WITH A CURRENT READING OF NORMAL SR 90S. NO SIGNS OF PAIN SUCH FACIAL GRIMACING, MOANING OR GUARDING. G-TUBE PRESENT AND RUNNING NEPHRO @40 MLS/HR. MULLEN CATH IN PLACE DRAINING YELLOW URINE. FEMORAL PICC IN PLACE AND INTACT. SAFETY PRECAUTIONS IN PLACE; HOB ELEVATED AT 45%, BED IN LOW POSITION AND LOCKED, RAILS UP X2, CALL LIGHT WITHIN REACH. WILL CONTINUE TO MONITOR PATIENT.
[2020-01-01] MEDS: TOBRAMYCIN 80 MG/2 ML VIAL INH SCH ×2 (08:08→20:36)
[2020-01-01 08:33] LABS: BASOPHILS % (AUTO) 0.4 % (0.0-2.0); EOSINOPHILS % (AUTO) 1.1 % (0.0-6.0); HEMATOCRIT 29 % (39-51); HEMOGLOBIN 9.1 g/dL (13.5-17.5); LYMPHOCYTES # (AUTO) 0.5 /CMM (0.8-4.8); LYMPHOCYTES % (AUTO) 5.8 % (20.0-44.0); MEAN CORPUSCULAR HGB CONC 31 g/dl (31.0-36.0); MEAN CORPUSCULAR VOLUME 95 fL (80-96); MONOCYTES # (AUTO) 0.4 /CMM (0.1-1.30); MONOCYTES % (AUTO) 4.2 % (2.0-12.0); NEUTROPHILS # (AUTO) 7.4 /CMM (1.8-8.9); NEUTROPHILS % (AUTO) 88.5 % (43.0-81.0); RED BLOOD CELL COUNT(AUTO) 3.06 MIL/uL (4.5-6.0); WHITE BLOOD COUNT (AUTO) 8.4 K/uL (4.3-11.0)
[2020-01-01] MEDS: ZINC SULFATE 220 MG CAPSULE PO SCH (08:35)
[2020-01-01] MEDS: VIT B CMPLX 3/FA/VIT C/BIOTIN 1 TAB TABLET GT SCH (08:35)
[2020-01-01] MEDS: CARVEDILOL 6.25 MG TABLET PO SCH ×2 (08:35→21:17)
[2020-01-01] MEDS: ASCORBIC ACID 500 MG TABLET GT SCH (08:35)
[2020-01-01] MEDS: LACTOBACILLUS RHAMNOSUS GG 1 EACH CAP.SPRINK GT SCH ×2 (08:35→17:00)
[2020-01-01] MEDS: CHLORHEXIDINE GLUCONATE 15 ML UDC MM SCH ×2 (08:35→17:00)
[2020-01-01] MEDS: HYDROGEL DRESSING 90 GM TUBE TP SCH ×2 (08:36→21:23)
[2020-01-01] MEDS: LEVETIRACETAM SOL (5 ML) 100 MG/ML UDC GT SCH ×2 (08:37→21:16)
[2020-01-01 08:44] LABS: PLATELET COUNT (AUTO) 15 /CMM (150-450)
[2020-01-01 08:48] LABS: CALCIUM, SERUM 8.2 mg/dL (8.5-10.1); CREATININE 3.3 mg/dL (0.6-1.3); PHOSPHORUS 4.4 mg/dL (2.5-4.9); POTASSIUM 3.4 mmol/L (3.5-5.1)
--- NOTE | 2020-01-01 09:00 | NUR ---
IRON PLASTIC BULLET MAKER NOTES RECEIVED CALL FROM LAB REGARDING CRITICAL VALUE FOR PLATELETS: 15 LACTIC ACID 9.3 AND PROCALCITONIN 16.3 CHARGE NURSE AWARE. NOTIFIED.
[2020-01-01 09:08] LABS: BAND % (MANUAL) 1 % (0.0-5.0); LYMPHOCYTES % (MANUAL) 6 % (16-48); MONOCYTES % (MANUAL) 4 % (0-11.0); NEUTROPHILS % (MANUAL) 89 (42-76)
[2020-01-01] MEDS: IV NS 0.9% 1,000 ML IV PRN (11:48)
[2020-01-01] MEDS: CEFTAZIDIME 1 G in IV D5W 50 ML IV SCH (11:49)
--- NOTE | 2020-01-01 16:06 | NUR ---
POWER PRESS TENDER NOTES RT TRIED TO SUCTION PATIENT AND PATIENT COUGHED UP COFFEE GROUND (BROWN) EMESIS THROUGH TRACH. CHARGE NURSE AWARE. MD NOTIFIED WILL CONTINUE TO MONITOR PATIENT.
--- NOTE | 2020-01-01 18:50 | NUR ---
DECONTAMINATOR CLOSING NOTES PATIENT IN BED, ASLEEP; OPENED EYES DURING THE DAY. PATIENT IS VENT DEPENDENT TOLERATING VENT WELL; SATURATING AT 100% AT THIS TIME; NO SOB PRESENT. TELE MONITOR WITH A CURRENT READING OF NORMAL SR HIGH 90S TO TACHY 103. NO SIGNS OF PAIN SUCH FACIAL GRIMACING, MOANING OR GUARDING. G-TUBE PRESENT AND RUNNING NEPHRO @40 MLS/HR. MULLEN CATH IN PLACE DRAINING YELLOW URINE. FEMORAL PICC IN PLACE AND INTACT. DURING THE DAY RT SUCTION DONE; EPISODES OF DARK BROWN EMESIS PRESENT; MD AWARE AND NOTIFIED CHARGE NURSE. SAFETY PRECAUTIONS IN PLACE; HOB ELEVATED AT 45%, BED IN LOW POSITION AND LOCKED, RAILS UP X2, CALL LIGHT WITHIN REACH. WILL ENDORSE TO SUPERVISOR KNITTING NURSE.
--- NOTE | 2020-01-01 19:48 | NUR ---
FOLLOW UP MANAGER NOTES RECEIVED PATIENT IN BED, OBTUNDED, OPENS EYES, PATIENT IS VENT DEPENDENT. VENT SETTINGS TOLERATING WELL; SATURATING AT 100% AT THIS TIME; NO SOB PRESENT. TELE MONITOR READS SINUS 90S - 110s. NO FACIAL GRIMACING, MOANING OR GUARDING. G-TUBE IN PLACE, FEEDING IS DISCONNECTED AT THIS TIME. NOTED WITH ABDOMINAL DISTENTION, NOTED SLUGGISH GTUBE UPON FLUSHING, UNABLE TO FLUSH GT, WILL MONITOR. MULLEN CATH IN PLACE DRAINING YELLOW URINE. FEMORAL PICC IN PLACE AND INTACT. SAFETY PRECAUTIONS IN PLACE; HOB ELEVATED AT 45%, BED IN LOW POSITION AND LOCKED, RAILS UP X2, CALL LIGHT WITHIN REACH. WILL CONTINUE TO MONITOR ACCORDINGLY.
--- NOTE | 2020-01-01 20:45 | NUR ---
RN NOTES OBTAINED TELEPHONE CONSENT FROM PATIENT'S OMER CHUN FOR PROCEDURE ORDER COMPUTED TOMOGRAPHY ABDOMEN AND PELVIS WITH GTUBE CONTRAST. OMER NAQVI AGREED AND CONFIRMED BY ANOTHER STAFF NURSE MAIYTO RONQUILLO RN.
[2020-01-01] MEDS: INSULIN GLARGINE, 100 UNIT/ML CARTRIDGE SQ SCH (22:00)
--- NOTE | 2020-01-01 22:50 | NUR ---
RN NOTES ACCU CHECK DONE, BLOOD GLUCOSE RESULT IS 98 MG/DL, NOTED COFFEE GROUND EMESIS, NOTED ABDOMINAL DISTENTION AND SLUGGISH G TUBE UPON FLUSHING. CALLED AND INFORMED ANUP OLSON NP ( HOSPITALIST ) WITH ORDERS TO HOLD TUBE FEEDING FOR NOW, AND START D5NS AT 70 ML/HR. ORDERS NOTED AND CARRIED OUT . WILL CONTINUE TO MONITOR PATIENT.
[2020-01-01] MEDS: IV D5/ 0.9% NACL 1,000 ML IV PRN (23:07)
[2020-01-02] VITALS (8 sets, daily range): BP systolic 116–136; BP diastolic 65–81
[2020-01-02] MEDS: METRONIDAZOLE 500 MG TABLET GT SCH ×3 (01:39→16:42)
[2020-01-02] MEDS: IPRATROPIUM NEB FS 0.5 MG/2.5 ML AMPUL.NEB IH SCH ×4 (02:11→19:47)
--- NOTE | 2020-01-02 06:53 | NUR ---
GLASS BLOCK BENDER NOTES ALL NEEDS ATTENDED AND MET. DRESSING CHANGED ORDERED. PATIENT IN BED, OBTUNDED, OPENS EYES, PATIENT IS VENT DEPENDENT. VENT SETTINGS TOLERATING WELL; SATURATING AT 100% AT THIS TIME; NO SOB PRESENT. TELE MONITOR READS SINUS 90S - 110s. NO FACIAL GRIMACING, MOANING OR GUARDING. G-TUBE IN PLACE, FEEDING IS DISCONNECTED AT THIS TIME. GT INTACT AND PATENT, OBTAINED CONSENT FOR COMPUTERIZED TOMOGRAPHY ABDOMEN AND PELVIS WITH CONTRAST. WILL ENDORSE TO AM NURSE. NOTED WITH COFFEE GROUND EMESIS APPROXIMATELY 20ML THOUGH OUT THE SHIFT. MULLEN CATH IN PLACE DRAINING YELLOW URINE. FEMORAL PICC IN PLACE AND INTACT. SAFETY PRECAUTIONS IN PLACE; HOB AT 45 DEGREES ANGLE, ASPIRATION PRECAUTION EMPHASIZED, BED IN LOW POSITION AND LOCKED, RAILS UP X2, CALL LIGHT WITHIN REACH. WILL ENDORSE TO AM NURSE FOR CONTINUITY OF CARE.
[2020-01-02] MEDS: BLOOD SUGAR DIAGNOSTIC 1 EACH STRIP IN SCH ×4 (07:18→22:53)
[2020-01-02 07:28] LABS: CREATININE 3.1 mg/dL (0.6-1.3); PHOSPHORUS 4.1 mg/dL (2.5-4.9)
[2020-01-02 07:57] LABS: POTASSIUM 2.8 mmol/L (3.5-5.1)
--- NOTE | 2020-01-02 08:00 | NUR ---
REED MAN OPENING NOTES Received Patient resting in bed. Obtunded. VS stable with no acute distress. Breathing even and unlabored on trachea and vent. No signs and symptoms of pain. Telemonitor in place and patent reading Sinus Tach with HR-104. Gtube in place and patent. Right Femoral PICC Line intact, patent and flushing well with D5NS infusing at 70ml/hr. Bush Cath in place and patent. Safety precautions in place. Bed locked and set to lowest position with side rails x 3 up. All needs rendered at this time. Call light within reach. Will continue to monitor.
[2020-01-02] MEDS ORDERED: DIATR MEGLU/DIATRIZOATE SODIUM 30 ML BOTTLE (GASTROGRAPHIN) ONE (08:13)
[2020-01-02 08:19] LABS: BASOPHILS % (AUTO) 0.4 % (0.0-2.0); EOSINOPHILS % (AUTO) 0.9 % (0.0-6.0); HEMATOCRIT 24 % (39-51); HEMOGLOBIN 7.9 g/dL (13.5-17.5); LYMPHOCYTES # (AUTO) 0.5 /CMM (0.8-4.8); LYMPHOCYTES % (AUTO) 7.2 % (20.0-44.0); MEAN CORPUSCULAR HGB CONC 33 g/dl (31.0-36.0); MEAN CORPUSCULAR VOLUME 89 fL (80-96); MONOCYTES # (AUTO) 0.4 /CMM (0.1-1.30); NEUTROPHILS # (AUTO) 6.5 /CMM (1.8-8.9); NEUTROPHILS % (AUTO) 86.5 % (43.0-81.0); RED BLOOD CELL COUNT(AUTO) 2.72 MIL/uL (4.5-6.0); WHITE BLOOD COUNT (AUTO) 7.5 K/uL (4.3-11.0)
[2020-01-02 08:35] LABS: PLATELET COUNT (AUTO) 25 /CMM (150-450)
[2020-01-02] MEDS: LACTOBACILLUS RHAMNOSUS GG 1 EACH CAP.SPRINK GT SCH ×2 (08:55→16:42)
[2020-01-02] MEDS: ASCORBIC ACID 500 MG TABLET GT SCH (08:55)
[2020-01-02] MEDS: VIT B CMPLX 3/FA/VIT C/BIOTIN 1 TAB TABLET GT SCH (08:55)
[2020-01-02] MEDS: LEVETIRACETAM SOL (5 ML) 100 MG/ML UDC GT SCH ×2 (08:55→21:40)
[2020-01-02] MEDS: CARVEDILOL 6.25 MG TABLET PO SCH ×2 (08:56→21:39)
[2020-01-02] MEDS: CHLORHEXIDINE GLUCONATE 15 ML UDC MM SCH ×2 (08:56→16:42)
[2020-01-02] MEDS: ZINC SULFATE 220 MG CAPSULE PO SCH (08:56)
[2020-01-02] MEDS: TOBRAMYCIN 80 MG/2 ML VIAL INH SCH ×2 (09:06→21:39)
[2020-01-02] MEDS: HYDROGEL DRESSING 90 GM TUBE TP SCH ×2 (09:16→21:44)
[2020-01-02 09:17] LABS: ALANINE AMINOTRANSFERASE 70 U/L (12-78); ALKALINE PHOSPHATASE 134 U/L (46-116); ASPARTATE AMINOTRANSFERASE 30 U/L (15-37); BILIRUBIN,DIRECT 0.2 mg/dL (0.0-0.2); BILIRUBIN,TOTAL 0.4 mg/dL (0.2-1.0); TOTAL PROTEIN, SERUM 5.1 g/dL (6.4-8.2)
[2020-01-02 09:40] LABS: ALBUMIN 1.4 g/dL (3.4-5.0)
[2020-01-02] MEDS ORDERED: POTASSIUM CHLORIDE 20 MEQ POWDER PACKET NG SCH (10:00)
[2020-01-02] MEDS: CEFTAZIDIME 1 G in IV D5W 50 ML IV SCH (11:59)
[2020-01-02 12:23] LABS: BAND % (MANUAL) 6 % (0.0-5.0); EOSINOPHILS % (MANUAL) 1 % (0-4); LYMPHOCYTES % (MANUAL) 5 % (16-48); MONOCYTES % (MANUAL) 2 % (0-11.0); NEUTROPHILS % (MANUAL) 86 (42-76)
[2020-01-02] MEDS: POTASSIUM CHLORIDE 10 MEQ/50 ML PREMIXED IVPB FOR PERIPHERAL LINE IV SCH ×4 (12:38→15:46)
--- NOTE | 2020-01-02 18:00 | NUR ---
LIBRARY MEDIA TECHNICIAN NOTES Collected and obtained stool and urine at this time. Placed in fridge.
[2020-01-02] MEDS: INSULIN REGULAR, HUMAN 100 UNIT/ML 3 ML VIAL SQ PRN (18:07)
--- NOTE | 2020-01-02 19:11 | NUR ---
DISTRIBUTION AGENT CLOSING NOTES Patient resting in bed. Obtunded. VS stable with no acute distress. Breathing even and unlabored on trachea and vent. No signs and symptoms of pain. Telemonitor in place and patent reading SR with HR-81. Gtube in place and patent with Nephro infusing at 40ml/hr. Right Femoral PICC Line intact, patent and flushing well with D5NS infusing at 70ml/hr. Bush Cath in place and patent. Safety precautions in place. Bed locked and set to lowest position with side rails x 3 up. All needs rendered at this time. Call light within reach. Will endorse plan of care to oncoming shift.
--- NOTE | 2020-01-02 19:20 | NUR ---
RIGHT FEMORAL TRIPLE LUMEN CENTRAL LINE, 2 PORTS ARE OCCLUDED, ONLY ONE PORT IS FLUSHABLE, BUT NO BLOOD RETURN. FLUSHED WITH 10ML NS.
--- NOTE | 2020-01-02 19:20 | NUR ---
WITH BLEEDING ON THE PENIS, SCANTY AMOUNT, SCROTUM SWOLLEN.
--- NOTE | 2020-01-02 19:20 | NUR ---
COMPENSATION AND BENEFITS ANALYST OPENING NOTES: RECEIVED PATIENT IN BED, OBTUNDED, AWAKE, NO SOB NOTED. HOB ELEVATED. WITH FEEDING RUNNING AT 40ML/HOUR. BED ALARM ON. BED IN LOWEST AND LOCKED POSITION. WITH MULLEN CATHETER INTACT SECURED WITH STAT LOCKED, WITH SLIGHT HEMATURIA NOTED, ACCORDING TO REPORTS MD AWARE.WITH RIGHT FEMORAL CENTRAL LINE INTACT WITH DRESSING INTACT, NO BLEEDING NOTED.
[2020-01-02] MEDS: *INSULIN REGULAR(HUMULIN R)HUM 100 UNIT/ML VIAL SQ PRN (22:03)
[2020-01-02] MEDS: INSULIN GLARGINE, 100 UNIT/ML CARTRIDGE SQ SCH (22:05)
--- NOTE | 2020-01-02 22:46 | NUR ---
NO GT RESIDUAL NOTED, GT FLUSHED WITH WATER, HOB ELEVATED AT ALL TIMES. NO HEMATURIA NOTED, URINE IS CLEAR YELLOW OUTPUT. WITH SMALL AMOUNT OFDRIED EXUDATE ON THE GT SITE DRESSING. WITH LEFT THIGH INTACT BLISTER NOTED, PHOTO TAKEN AND ATTACHED TO THE CHART, WILL MONITOR, COVERED WITH DRY GAUZE.
[2020-01-02 23:37] LABS: APPEARANCE,URINE SL CLOUDY (CLEAR); BILIRUBIN,URINE SMALL (NEGATIVE); BLOOD, URINE LARGE Ery/uL (NEGATIVE); COLOR,URINE RED (YELLOW); KETONES,URINE NEGATIVE (NEGATIVE); LEUKOCYTE ESTERASE ,URINE LARGE (NEGATIVE); NITRITE, URINE NEGATIVE (NEGATIVE); PH,URINE 6.5 (5.0-8.0); PROTEIN,URINE 100 mg/dl (NEGATIVE); UGLUCOSE NEGATIVE (NEGATIVE); UROBILINOGEN,URINE 0.2 EU/dL (0.2)
[2020-01-03] VITALS (7 sets, daily range): BP systolic 107–127; BP diastolic 58–71
[2020-01-03 00:12] LABS: BACTERIA,URINE Few /HPF (None Seen); RBC,URINE 81-100 /HPF (0-2); SQUAMOUS EPITHELIAL CELL,UR Rare /HPF (None Seen); YEAST,URINE Few /HPF (None Seen)
[2020-01-03] MEDS: METRONIDAZOLE 500 MG TABLET GT SCH ×3 (00:26→16:06)
[2020-01-03] MEDS: IPRATROPIUM NEB FS 0.5 MG/2.5 ML AMPUL.NEB IH SCH ×4 (01:31→20:34)
[2020-01-03] MEDS: IV D5/ 0.9% NACL 1,000 ML IV PRN (01:34)
--- NOTE | 2020-01-03 04:52 | NUR ---
RIGHT FEMORAL CENTRAL LINE DRESSING CAME OFF, NO BLEEDING NOTED. SITE CLEANSED WITH NS, PAT DRIED WITH DRY GAUZE, CLEANSED WITH BETADINE SWAB, DRIED, AND COVERED WITH DRY GAUZE AND SECURED WITH TAPE. NO CENTRAL LINE DRESSING AVAILABLE IN THE FLOOR. CHARGE NURSE RIC MADE AWARE. Z-GUARD CREAM APPLIED ON BOTH GROIN FOLDS. RIGHT GROIN FOLD HAS SMALL OPEN SKIN, BOTH GROIN FOLDS CLEANSED WITH NS, PAT DRIED AND APPLIED Z-GUARD. PATIENT HAD LARGE AMOUNT OF BLACK STOOL, VERY SOFT.
[2020-01-03] MEDS: INSULIN REGULAR, HUMAN 100 UNIT/ML 3 ML VIAL SQ PRN ×3 (06:52→16:51)
--- NOTE | 2020-01-03 07:11 | NUR ---
SILK SPOOLER CLOSING NOTES: PATIENT IN BED, OBTUNDED, NO SOB NOTED, NOT IN PAIN, PATIENT IS COMFORTABLE. BED ALARM ON. BED IN LOWEST AND LOCKED POSITION. HOB ELEVATED. WITH MULLEN CATHETER INTACT, NO HEMATURIA NOTED. WOUND TREATMENTS DONE TODAY: LEFT BUTTOCK STAGE 3,CLEANSED WITH NS, PAT DRIED,APPLIED HYDROGEL, AND COVERED WITH MEPILEX DRESSING.OFFLOADED. TURNED Q2 HOURS. SACRAL/ BUTTOCKS: CLEANSED WITH NS, PAT DRIED, APPLIED OIL EMULSION DRESSING TO THE OPEN AREA AND COVERED WITH MEPILEX DRESSING, OFFLOADED.
[2020-01-03] MEDS: BLOOD SUGAR DIAGNOSTIC 1 EACH STRIP IN SCH ×4 (07:41→21:44)
[2020-01-03] MEDS: TOBRAMYCIN 80 MG/2 ML VIAL INH SCH ×2 (08:11→20:45)
[2020-01-03 08:43] LABS: BASOPHILS % (AUTO) 0.4 % (0.0-2.0); EOSINOPHILS % (AUTO) 0.8 % (0.0-6.0); HEMATOCRIT 24 % (39-51); HEMOGLOBIN 7.3 g/dL (13.5-17.5); LYMPHOCYTES # (AUTO) 0.3 /CMM (0.8-4.8); LYMPHOCYTES % (AUTO) 8.7 % (20.0-44.0); MEAN CORPUSCULAR HGB CONC 30 g/dl (31.0-36.0); MEAN CORPUSCULAR VOLUME 96 fL (80-96); MONOCYTES # (AUTO) 0.1 /CMM (0.1-1.30); MONOCYTES % (AUTO) 3.8 % (2.0-12.0); NEUTROPHILS # (AUTO) 3.1 /CMM (1.8-8.9); NEUTROPHILS % (AUTO) 86.3 % (43.0-81.0); RED BLOOD CELL COUNT(AUTO) 2.51 MIL/uL (4.5-6.0); WHITE BLOOD COUNT (AUTO) 3.6 K/uL (4.3-11.0)
[2020-01-03 08:50] LABS: PLATELET COUNT (AUTO) 12 /CMM (150-450)
[2020-01-03 08:58] LABS: CALCIUM, SERUM 8.2 mg/dL (8.5-10.1); CREATININE 2.9 mg/dL (0.6-1.3); PHOSPHORUS 3.4 mg/dL (2.5-4.9); POTASSIUM 3.3 mmol/L (3.5-5.1)
[2020-01-03] MEDS: CARVEDILOL 6.25 MG TABLET PO SCH ×2 (09:00→21:20)
[2020-01-03] MEDS: VIT B CMPLX 3/FA/VIT C/BIOTIN 1 TAB TABLET GT SCH (09:17)
[2020-01-03] MEDS: ASCORBIC ACID 500 MG TABLET GT SCH (09:17)
[2020-01-03] MEDS: LACTOBACILLUS RHAMNOSUS GG 1 EACH CAP.SPRINK GT SCH ×2 (09:17→16:06)
[2020-01-03] MEDS: ZINC SULFATE 220 MG CAPSULE PO SCH (09:17)
[2020-01-03] MEDS: LEVETIRACETAM SOL (5 ML) 100 MG/ML UDC GT SCH ×2 (09:17→21:20)
[2020-01-03] MEDS: CHLORHEXIDINE GLUCONATE 15 ML UDC MM SCH ×2 (09:17→16:05)
[2020-01-03] MEDS: HYDROGEL DRESSING 90 GM TUBE TP SCH ×2 (09:22→21:23)
[2020-01-03 10:30] LABS: BAND % (MANUAL) 3 % (0.0-5.0); LYMPHOCYTES % (MANUAL) 6 % (16-48); MONOCYTES % (MANUAL) 4 % (0-11.0); NEUTROPHILS % (MANUAL) 87 (42-76)
[2020-01-03] MEDS: CEFTAZIDIME 1 G in IV D5W 50 ML IV SCH (12:38)
[2020-01-03] MEDS: Potassium Chloride 20 MEQ in IV D5W 1,000 ML IV PRN (12:38)
[2020-01-03] MEDS: NEPRO 1,000 ML BOTTLE GT PRN (13:13)
--- NOTE | 2020-01-03 18:41 | NUR ---
RN END OF SHIFT SUMMARY PT IS OBTUNDED. CARDIAC MONITORED, NSR. ON MECH VENT TOLERATING WELL. TRACH DRESSING AND TIE CHANGED TODAY. ABDOMEN IS SOFT AND NONDISTENDED, X2 BMD DURING SHIFT, PENDING STOOL CX. MULLEN CATH IN PLACE, NOTED WITH HEMATURIA. TOLERATING GTF NEPRO @40ML/HR, NO RESIDUALS. TRIPLE LUMEN CATH TO GROIN DRESSING CHANGED TODAY, INFUSING D5W +[id number] @100ML/HR. PT'S CORE TEMP AXILLARY 94.5, RECTAL TEMP 93.2 DR. RICKETTS MADE AWARE WITH ORDERS FOR MARY HUGGER. REPOSITIONED Q2H. SAFETY MEASURES ARE IN PLACE. WILL MONITOR AND CONTINUE POC.
--- NOTE | 2020-01-03 19:02 | NUR ---
RACETRACK STEWARD OPENING NOTES: PATIENT IN BED, OBTUNDED. HOB ELEVATED. WITH GT FEEDING RUNNING AT 40ML/HOUR. WITH MULLEN CATHETER INTACT, WITH HEMATURIA, ACCORDING TO THE REPORTS AWARE. WITH BEAR HUGGER ON. BED ALARM ON. BED IN LOWEST AND LOCKED POSITION.SIDERAILS UP.ON AIR MATTRESS.
--- NOTE | 2020-01-03 20:00 | NUR ---
RIGHT FEMORAL TRIPLE LUMEN CENTRAL LINE 2PORTS ARE STILL OCCLUDED, NOT FLUSHABLE AND NO BLOOD RETURN, ONLY ONE PORT IS FLUSHABLE WITH 10ML NS, BUT NO BLOOD RETURN. CHARGE NURSE MADE AWARE.
--- NOTE | 2020-01-03 20:30 | NUR ---
TOBRAMYCIN INH DONE BY RT. RT AWARE OF THE RESPIRATORY CX NEEDS TO BE DONE.
[2020-01-03] MEDS: INSULIN GLARGINE, 100 UNIT/ML CARTRIDGE SQ SCH (21:43)
[2020-01-03] MEDS: *INSULIN REGULAR(HUMULIN R)HUM 100 UNIT/ML VIAL SQ PRN (21:43)
--- NOTE | 2020-01-03 22:00 | NUR ---
NO GT RESIDUAL NOTED, FLUSHED TUBING WITH WATER. HOB KEPT ELEVATED AT ALL TIMES. DRESSING ON THE GT SITE IS CLEAN, DRY AND INTACT, NO BLEEDING NOTED. BLOOD SUGAR FINGERSTICK= 170, INSULIN LANTUS AND REGULAR ADMINISTERED.
--- NOTE | 2020-01-03 22:12 | NUR ---
RECEIVED A CALL FROM FAMILY MEMBER- OMER AND UPDATED HER WITH THE PATIENT'S TEMP. AND HEMATURIA.
[2020-01-04] VITALS (10 sets, daily range): BP systolic 103–128; BP diastolic 53–64
[2020-01-04] MEDS: METRONIDAZOLE 500 MG TABLET GT SCH ×3 (00:22→16:28)
[2020-01-04] MEDS: Potassium Chloride 20 MEQ in IV D5W 1,000 ML IV PRN ×2 (00:30→14:46)
--- NOTE | 2020-01-04 00:37 | NUR ---
NO GT RESIDUAL NOTED. HOB ELEVATED.
--- NOTE | 2020-01-04 00:46 | NUR ---
PATIENT STILL HAVING HEMATURIA AND HAS BLACK STOOL, INFORMED DR HEARD, NO ORDERS MADE.
[2020-01-04] MEDS: IPRATROPIUM NEB FS 0.5 MG/2.5 ML AMPUL.NEB IH SCH ×4 (01:32→19:50)
--- NOTE | 2020-01-04 01:34 | NUR ---
SPUTUM COLLECTED BY THE RT FOR RESPIRATORY CULTURE, PLACED IN THE FRIDGE.
--- NOTE | 2020-01-04 02:58 | NUR ---
CALLED RT HEIDI FOR HIGH RESPIRATORY RATE.
--- NOTE | 2020-01-04 03:30 | NUR ---
MULTIPLE WOUNDS TREATMENTS DONE: LEFT ANKLE DIABETIC ULCER- XEROFORM DRESSING APPLIED, COVERED WITH MEPILEX DRESSING AND OFFLOADED. RIGHT HEEL DIABETIC ULCER-MEPILEX DRESSING APPLIED AND OFFLOADED.LEFT BUTTOCK STAGE3-CLEANSED WITH NS,PAT DRIED,HYDROGEL APPLIED, AND COVERED WITH MEPILEX DRESSING, OFFLOADED. SACRAL/BUTTOCK -CLEANSED WITH NS,PAT DRIED, OIL EMULSION DRESSINGS APPLIED TO OPEN AREA AND COVERED WITH ABD PAD. OFFLOADED. RIGHT KNEE ABRASIONS - CLEANSED WITH NS, PAT DRIED, SMALL PIECE OF XEROFORM DRESSING APPLIED, AND COVERED WITH MEPILEX DRESSING.
--- NOTE | 2020-01-04 03:41 | NUR ---
TEMP RECHECKED= 98.9 PER AXILLA, MARY RUFFIN REMOVED.
--- NOTE | 2020-01-04 05:41 | NUR ---
CAT OPERATOR CLOSING NOTES: PATIENT IN BED, OBTUNDED. NO SOB NOTED. NOT IN PAIN. BED ALARM ON. BED IN LOWEST AND LOCKED POSITION. HOB ELEVATED AT ALL TIMES. WITH TRACH DRESSING INTACT, CLEAN AND DRY. NO BLEEDING NOTED. MULLEN CATHETER INTACT, DRAINING YELLOWISH URINE OUTPUT. NO MARY HUGGER AT THIS TIME, LATEST TEMP IS 98.9/ AXILLA. GT SITE DRESSING INTACT, CLEAN AND DRY, NO BLEEDING NOTED. CONTACT ISOLATION OBSERVED AT ALL TIMES. RIGHT GROIN CENTRAL LINE DRESSING INTACT, NO BLEEDING NOTED. 2 LUMENS ARE CLOGGED, ABLE TO FLUSH ONE PORT WITH 10 ML NS BUT NO BLOOD RETURN, CHARGE NURSE JUDAH MADE AWARE.
[2020-01-04] MEDS: INSULIN REGULAR, HUMAN 100 UNIT/ML 3 ML VIAL SQ PRN ×3 (07:03→17:55)
--- NOTE | 2020-01-04 07:30 | NUR ---
RN OPENING NOTES RECEIVED PATIENT IN BED, OBTUNDED. HOB ELEVATED. WITH GT FEEDING RUNNING AT 40ML/HOUR. WITH MULLEN CATHETER INTACT, WITH HEMATURIA, ACCORDING TO THE REPORTS MD AWARE. SAFETY MEASURES IN PLACE, BED LOCKED AND IN LOWEST POSITION, SIDE RAILS UP X 2 . WILL CONTINUE TO MONITOR.
[2020-01-04 07:32] LABS: BASOPHILS % (AUTO) 0.3 % (0.0-2.0); EOSINOPHILS % (AUTO) 0.5 % (0.0-6.0); HEMATOCRIT 22 % (39-51); HEMOGLOBIN 7.3 g/dL (13.5-17.5); LYMPHOCYTES # (AUTO) 0.1 /CMM (0.8-4.8); LYMPHOCYTES % (AUTO) 3.7 % (20.0-44.0); MEAN CORPUSCULAR HGB CONC 33 g/dl (31.0-36.0); MEAN CORPUSCULAR VOLUME 89 fL (80-96); MONOCYTES # (AUTO) 0.1 /CMM (0.1-1.30); MONOCYTES % (AUTO) 2.1 % (2.0-12.0); NEUTROPHILS # (AUTO) 2.7 /CMM (1.8-8.9); NEUTROPHILS % (AUTO) 93.4 % (43.0-81.0); RED BLOOD CELL COUNT(AUTO) 2.45 MIL/uL (4.5-6.0); WHITE BLOOD COUNT (AUTO) 2.9 K/uL (4.3-11.0)
[2020-01-04 07:44] LABS: CALCIUM, SERUM 8.2 mg/dL (8.5-10.1); CARBON DIOXIDE 23 mmol/L (21-32); CHLORIDE 108 mmol/L (98-107); CREATININE 2.8 mg/dL (0.6-1.3); GLUCOSE 148 mg/dL (74-106); MAGNESIUM 1.6 mg/dL (1.8-2.4); PHOSPHORUS 2.5 mg/dL (2.5-4.9); POTASSIUM 3.1 mmol/L (3.5-5.1); SODIUM SERUM 144 mmol/L (136-145)
[2020-01-04] MEDS: BLOOD SUGAR DIAGNOSTIC 1 EACH STRIP IN SCH ×4 (07:45→22:00)
[2020-01-04 07:48] LABS: PLATELET COUNT (AUTO) 17 /CMM (150-450)
[2020-01-04 07:53] LABS: UREA NITROGEN, BLOOD 87 mg/dL (7-18)
[2020-01-04] MEDS: TOBRAMYCIN 80 MG/2 ML VIAL INH SCH ×2 (08:01→21:28)
[2020-01-04] MEDS: CHLORHEXIDINE GLUCONATE 15 ML UDC MM SCH ×2 (09:21→16:28)
[2020-01-04] MEDS: ZINC SULFATE 220 MG CAPSULE PO SCH (09:21)
[2020-01-04] MEDS: ASCORBIC ACID 500 MG TABLET GT SCH (09:21)
[2020-01-04] MEDS: VIT B CMPLX 3/FA/VIT C/BIOTIN 1 TAB TABLET GT SCH (09:21)
[2020-01-04] MEDS: LACTOBACILLUS RHAMNOSUS GG 1 EACH CAP.SPRINK GT SCH ×2 (09:22→16:28)
[2020-01-04] MEDS: LEVETIRACETAM SOL (5 ML) 100 MG/ML UDC GT SCH ×2 (09:23→23:02)
[2020-01-04] MEDS: CARVEDILOL 6.25 MG TABLET PO SCH ×2 (09:24→23:02)
[2020-01-04] MEDS: HYDROGEL DRESSING 90 GM TUBE TP SCH ×2 (09:25→23:03)
[2020-01-04] MEDS ORDERED: Magnesium 1GM/D5W 100ML PREMIX 100 ML IV SCH (09:30)
[2020-01-04] MEDS ORDERED: POTASSIUM CHLORIDE 20 MEQ POWDER PACKET GT SCH (09:30)
[2020-01-04] MEDS ORDERED: FUROSEMIDE 20 MG/2 ML VIAL IV ONE (09:43)
[2020-01-04 09:53] LABS: BAND % (MANUAL) 13 % (0.0-5.0); EOSINOPHILS % (MANUAL) 1 % (0-4); LYMPHOCYTES % (MANUAL) 7 % (16-48); METAMYELOCYTES % 1 % (0-0); MONOCYTES % (MANUAL) 3 % (0-11.0); NEUTROPHILS % (MANUAL) 75 (42-76)
[2020-01-04] MEDS: Magnesium 1GM/D5W 100ML PREMIX 100 ML IV SCH ×2 (10:27→11:37)
[2020-01-04] MEDS: CEFTAZIDIME 1 G in IV D5W 50 ML IV SCH (12:03)
[2020-01-04 12:04] LABS: BILIRUBIN,DIRECT 0.2 mg/dL (0.0-0.2); BILIRUBIN,TOTAL 0.3 mg/dL (0.2-1.0)
--- NOTE | 2020-01-04 14:00 | NUR ---
RN NOTES RECEIVED CRITICAL LABS: LACTIC ACID 4.5, PLT 17, LACTIC ACID 5.1. ALL THREE CRITICAL LABS ADDED TO CRITICAL LAB INTERVENTION, CHARGE NURSE AND MD MADE AWARE.
--- NOTE | 2020-01-04 18:46 | NUR ---
RN CLOSING NOTES WILL ENDORSE PATIENT TO PM NURSE FOR CORA. . PATIENT IN BED, OBTUNDED. HOB ELEVATED. WITH GT FEEDING RUNNING AT 40ML/HOUR. WITH MULLEN CATHETER INTACT, WITH HEMATURIA, ACCORDING TO THE REPORTS MD AWARE. SAFETY MEASURES IN PLACE, BED LOCKED AND IN LOWEST POSITION, SIDE RAILS UP X 2 .
--- NOTE | 2020-01-04 19:10 | NUR ---
JANITOR AND CLEANER OPENING NOTES: RECEIVED PATIENT IN BED, OBTUNDED, EXTREMETIES CONTRACTED. HOB ELEVATED. WITH FEEDING RUNNING AT 40ML/HOUR. WITH TRACHEOSTOMY DRESSING IS CLEAN,DRY AND INTACT, NO BLEEDING NOTED. CONTACT ISOLATION. REVERSED ISOLATION ALSO OBSERVED. BED ALARM ON. BED IN LOWEST AND LOCKED POSITION.WITH MULLEN CATHETER INTACT, HEMATURIA NOTED. NO SOB NOTED. NOT IN PAIN.
--- NOTE | 2020-01-04 20:00 | NUR ---
RIGHT FEMORAL TRIPLE LUMEN CENTRAL LINE DRESSING IS INTACT, 2LUMENS STILL OCCLUDED, ONE PORT FLUSHED WITH 10ML NS.
--- NOTE | 2020-01-04 22:48 | NUR ---
RELAYED RESULTS OF BLOOD CULTURE X2 GRAM VARIABLE RODS TO DR HEARD.
[2020-01-04] MEDS: *INSULIN REGULAR(HUMULIN R)HUM 100 UNIT/ML VIAL SQ PRN (23:28)
[2020-01-04] MEDS: INSULIN GLARGINE, 100 UNIT/ML CARTRIDGE SQ SCH (23:29)
[2020-01-04] MEDS: NEPRO 1,000 ML BOTTLE GT PRN (23:36)
[2020-01-04] MEDS: Z GUARD REMEDY 2 OZ OINT TP PRN (23:37)
[2020-01-05] VITALS (14 sets, daily range): BP systolic 93–135; BP diastolic 52–73
[2020-01-05] MEDS: METRONIDAZOLE 500 MG TABLET GT SCH ×3 (00:09→16:47)
--- NOTE | 2020-01-05 00:10 | NUR ---
NO GT RESIDUAL NOTED.
--- NOTE | 2020-01-05 00:11 | NUR ---
GT FLUSHED WITH WATER. GT SITE DRESSING IS CLEAN, DRY AND INTACT.
[2020-01-05] MEDS: Potassium Chloride 20 MEQ in IV D5W 1,000 ML IV PRN ×2 (00:17→11:53)
[2020-01-05] MEDS: IPRATROPIUM NEB FS 0.5 MG/2.5 ML AMPUL.NEB IH SCH ×4 (01:40→20:18)
--- NOTE | 2020-01-05 02:57 | NUR ---
AT 2300- DR ORQUIDEA AWARE OF THE BLOOD CULTURE RESULTS, NO ORDERS MADE.
--- NOTE | 2020-01-05 05:52 | NUR ---
MOTORIZED SQUAD LIEUTENANT CLOSING NOTES: PATIENT IN BED.OBTUNDED,RESPONSED TO PAINFUL, AND TOUCH STIMULI. HOB ELEVATED AT ALL TIMES. WITH TRCH DRESSING AND COLLAR CLEAN AND DRY AND INTACT. V/S STABLE. AFEBRILE. WITH GT DRESSING INTACT, CLEAN AND DRY, NO LEAKING, NO BLEEDING. WITH NEPRO GT FEEDING AT 40ML/HOUR RUNNING. TURNED AND REPOSITIONED. PATIENT IS ON AIR MATTRESS. WITH MULLEN CATHETER INTACT WITH STAT LOCKED IN PLACE, HEMATURIA. SCROTUM SWOLLEN, GENERALIZED EDEMA. RIGHT FEMORAL DRESSING CAME OFF, CENTRAL LINE SITE CLEANSED WITH BETADINE SWAB AND CHLORAPREP APPLICATOR X2, PLACED ANTIMICROBIAL HEMOSTATIC DRESSING- GUARD IV DISC AND COVERED WITH TEGADERM DRESSING, SECURED WITH TAPE. PATIENT HAD BM, MODERATE AMOUNT BLACKISH STOOL. BEN-CARE DONE. Z-GUARD APPLIED. BED IN LOWEST AND LOCKED POSITION. WOUND TREATMENTS ON LEFT ANKLE DIABETIC ULCER, LEFT BUTTOCK STAGE 3, LEFT LEG, AND RIGHT KNEE ABRASION. PLACED MEPILEX DRESSINGS ON BOTH HEELS, AND MID BACK SCARRING/SCAB. OFFLOADED. NO SOB NOTED. NOT IN PAIN.
[2020-01-05 06:52] LABS: CREATININE 2.8 mg/dL (0.6-1.3); MAGNESIUM 2.1 mg/dL (1.8-2.4); PHOSPHORUS 2.2 mg/dL (2.5-4.9); POTASSIUM 3.8 mmol/L (3.5-5.1)
[2020-01-05] MEDS: INSULIN REGULAR, HUMAN 100 UNIT/ML 3 ML VIAL SQ PRN ×3 (06:54→18:11)
[2020-01-05] MEDS: BLOOD SUGAR DIAGNOSTIC 1 EACH STRIP IN SCH ×4 (07:30→22:42)
--- NOTE | 2020-01-05 07:30 | NUR ---
TELE/RN NOTE THE PATIENT IS RECEIVED IN BED. THE PATIENT IS ON VENT. TRACH AND TOLERATES THE SETTINGS WELL. THE PATIENT IS OBTUNDED. MULLEN CATH PRESENT AND NOTED TO HAVE HEMATURIA. NO BLADDER DISTENSION NOTED. GT PRESENT AND NEPRO INFUSING AT 40ML/HR. NO ABDOMINAL DISTENSION NOTED. NOTED THAT THE PATIENT MOUTH AND AROUND LIPS THERE IS SOME DRY BLOOD. PER ALUMINUM BOAT INSPECTOR ENDORSEMENT THE PATIENT HAS BEEN HAVING EPISODES OF THROWING UP BLOOD AND DOCTORS WERE MADE AWARE. ALSO, PER ALUMINUM BOAT INSPECTOR ENDORSEMENT, DOCTORS WERE MADE AWARE PATIENT HAVING HEMATURIA. RIGHT FEMORAL TRIPLE LUMEN CATH PRESENT AND SALINE LOCKED. EXTERNAL TELE BOX READING IS SR 70. BED LOW AND LOCKED. SIDE RAILS UP X3. CALL LIGHT WITHIN REACH. WILL CONTINUE TO MONITOR.
[2020-01-05 07:39] LABS: BASOPHILS % (AUTO) 0.5 % (0.0-2.0); EOSINOPHILS % (AUTO) 1.1 % (0.0-6.0); LYMPHOCYTES # (AUTO) 0.3 /CMM (0.8-4.8); LYMPHOCYTES % (AUTO) 7.9 % (20.0-44.0); MEAN CORPUSCULAR HGB CONC 33 g/dl (31.0-36.0); MEAN CORPUSCULAR VOLUME 90 fL (80-96); MONOCYTES # (AUTO) 0.2 /CMM (0.1-1.30); MONOCYTES % (AUTO) 5.2 % (2.0-12.0); NEUTROPHILS # (AUTO) 2.9 /CMM (1.8-8.9); NEUTROPHILS % (AUTO) 85.3 % (43.0-81.0); RED BLOOD CELL COUNT(AUTO) 2.04 MIL/uL (4.5-6.0); WHITE BLOOD COUNT (AUTO) 3.4 K/uL (4.3-11.0)
[2020-01-05 07:54] LABS: HEMATOCRIT 18 % (39-51); PLATELET COUNT (AUTO) 13 /CMM (150-450)
--- NOTE | 2020-01-05 08:00 | NUR ---
TELE/RN NOTE PATIENT`S TEMP NOTED TO BE 96.4F. APPLIED THE MARY RUFFIN. WILL CONTINUE TO MONITOR.
--- NOTE | 2020-01-05 08:03 | NUR ---
TELE/RN NOTE DNP LILIAM IS MADE AWARE OF HGB OF 6.0, HCT OF 18 AND PLT OF 13 (ALL TRENDING DOWN). ALSO, MADE HIM AWARE THAT THE PATIENT HAS HEMATURIA AND PER ENDORSEMENT HE HAS BEEN HAVING EPISODES OF THROWING UP BLOOD. WAITING FOR NEW ORDERS.
[2020-01-05 08:23] LABS: BAND % (MANUAL) 14 % (0.0-5.0); EOSINOPHILS % (MANUAL) 1 % (0-4); LYMPHOCYTES % (MANUAL) 6 % (16-48); NEUTROPHILS % (MANUAL) 79 (42-76)
--- NOTE | 2020-01-05 08:25 | NUR ---
TELE/RN NOTE BLOOD SUGAR CHECK DUE AT 0730 IS NOT DONE BECAUSE CAPTAIN FIRE PREVENTION [employer] HAS ALREADY CHECKED THE PATIENT`S BLOOD SUGAR AT 0650 AND ADMINISTERED 16 UNITS OF INSULIN PER SLIDING SCALE FOR BLOOD SUGAR OF 338. THE PATIENT IS IN NO APPARENT DISTRESS AT THIS TIME. WILL CONTINUE TO MONITOR.
[2020-01-05] MEDS: CARVEDILOL 6.25 MG TABLET PO SCH ×2 (08:30→21:22)
--- NOTE | 2020-01-05 09:00 | NUR ---
TELE/RN NOTE AFTER APPLYING HE MARY RUFFIN THE PATIENT`S TEMP INCREASED TO 97.5F.
[2020-01-05] MEDS: CHLORHEXIDINE GLUCONATE 15 ML UDC MM SCH ×2 (09:04→16:47)
[2020-01-05] MEDS: ZINC SULFATE 220 MG CAPSULE PO SCH (09:04)
[2020-01-05] MEDS: LACTOBACILLUS RHAMNOSUS GG 1 EACH CAP.SPRINK GT SCH ×2 (09:05→16:47)
[2020-01-05] MEDS: LEVETIRACETAM SOL (5 ML) 100 MG/ML UDC GT SCH ×2 (09:05→21:21)
[2020-01-05] MEDS: ASCORBIC ACID 500 MG TABLET GT SCH (09:05)
[2020-01-05] MEDS: VIT B CMPLX 3/FA/VIT C/BIOTIN 1 TAB TABLET GT SCH (09:05)
[2020-01-05] MEDS: HYDROGEL DRESSING 90 GM TUBE TP SCH ×2 (09:15→21:22)
--- NOTE | 2020-01-05 09:18 | NUR ---
TELE/RN NOTE DID NOT RECEIVE ANY ORDERS FROM CORKY RICKETTS REGARDING "HGB OF 6.0, HCT OF 18 AND PLT OF 13 (ALL TRENDING DOWN), HEMATURIA AND PER ENDORSEMENT HE HAS BEEN HAVING EPISODES OF THROWING UP BLOOD" SO MADE DR BENSON AWARE AND RECEIVED AN ORDER TO ADMINISTER 2 UNITS PRBC. DUE TO LAB REQUEST WILL CARRY OUT THE ORDER OF 2 UNITS OF PRBC ONE AT THE TIME. SO AFTER FINISHING THE ADMINISTRATION OF 1ST UNITS OF PRBC, WILL PLACE THE ORDER OF 2ND UNIT PRBC.
[2020-01-05] MEDS: TOBRAMYCIN 80 MG/2 ML VIAL INH SCH (09:24)
--- NOTE | 2020-01-05 10:00 | NUR ---
RN NOTE TEMP IS 97.7F.
[2020-01-05] MEDS: CEFTAZIDIME 1 G in IV D5W 50 ML IV SCH (12:30)
[2020-01-05] MEDS ORDERED: NEUTRA PHOS 1 POWD.PACKET NG ONE (13:00)
--- NOTE | 2020-01-05 15:39 | NUR ---
TELE/RN NOTE THE PATIENT TOLERATING BLOOD TRANSFUSION WELL. WILL CONTINUE TO MONITOR.
[2020-01-05] MEDS ORDERED: FEE PK DOSING 1 MIN EA MC ONE (17:08)
[2020-01-05] MEDS: CLOTRIMAZOLE 1% 15 GM TUBE TP SCH ×2 (18:11→18:13)
--- NOTE | 2020-01-05 18:14 | NUR ---
TELE/RN NOTE MULLEN CATH IS CHANGED PER ORDER. THE PATIENT TOLERATED THE INSERTION WELL. NO BLEEDING NOTED.
--- NOTE | 2020-01-05 18:15 | NUR ---
MS/RN NOTE SMALL AMOUNT OF TARRY STOOL NOTED. DNP LILIAM IS AWARE. PER DNP NO NEW ORDERS.
--- NOTE | 2020-01-05 18:30 | NUR ---
TELE/RN NOTE 2ND UNIT OF PRBC NOT READY YET.
--- NOTE | 2020-01-05 18:46 | NUR ---
TELE/RN NOTE THE PATIENT IS IN BED. OBTUNDED. PATIENT IS ON VENT/TRACH AND TOLERATES IT WELL. EXTERNAL TELE BOX READING IS SR 99. THE PATIENT IN NO APPARENT DISTRESS. DECREASE IN HEMATURIA DURING THE SHIFT. NO VOMITING DURING THE SHIFT. SMALL AMOUNT OF TARRY STOOL X1 DURING THE SHIFT. DRESSING CHANGES DONE PER ORDER AND THE PATIENT TOLERATED IT WELL. TURNING AND REPOSITIONING Q2HR DONE. GT FEEDING NEPHRO INFUSING AT 40ML/HR. ABDOMEN SOFT AND NON-DISTENDED. NO RESIDUAL NOTED DURING THE SHIFT. RIGHT FEMORAL TRIPLE LUMEN LINE PRESENT AND SALINE LOCKED. BED LOW AND LOCKED. SIDE RAILS UP X3. CALL LIGHT WITHIN REACH. WILL ENDORSE TO COGNOS BI ADMINISTRATOR. Addendum: 01/05/20 at 1854 by BLAYNE MYERS RN TELE/RN NOTE 2ND UNIT OF PRBC NOT READY YET PER PHARMACY. WILL ENDORSE TO COGNOS BI ADMINISTRATOR.
--- NOTE | 2020-01-05 19:10 | NUR ---
MENTAL RETARDATION AIDE NOTES RECEIVED PT IN BED RESTING. PT OPENS EYES. PT ON VENT, WITH RESPIRATIONS EVEN AND UNLABORED WITH NO S/S OF ACUTE DISTRESS OR SOB NOTED. NO S/S OF PAIN AT THIS TIME. PT NOTED WITH RFEMORAL CENTRAL LINE. SAFETY MEASURES IN PLACE WITH BED IN LOWEST LOCKED POSITION WITH SIDE RAILS UP X2. CALL LIGHT WITHIN REACH. WILL CONTINUE TO MONITOR.
[2020-01-05] MEDS ORDERED: GENTAMICIN 80 MG in IV D5W 50 ML IV SCH (21:00)
[2020-01-05] MEDS: *INSULIN REGULAR(HUMULIN R)HUM 100 UNIT/ML VIAL SQ PRN (22:42)
[2020-01-05] MEDS: INSULIN GLARGINE, 100 UNIT/ML CARTRIDGE SQ SCH (22:42)
[2020-01-06] VITALS (13 sets, daily range): BP systolic 84–139; BP diastolic 46–99
[2020-01-06] MEDS: ACETAMINOPHEN 650 MG/SUPP.RECT RC PRN (00:07)
[2020-01-06] MEDS: IPRATROPIUM NEB FS 0.5 MG/2.5 ML AMPUL.NEB IH SCH ×4 (01:10→19:23)
[2020-01-06] MEDS: METRONIDAZOLE 500 MG TABLET GT SCH ×2 (01:31→08:29)
[2020-01-06] MEDS: NEPRO 1,000 ML BOTTLE GT PRN (02:33)
--- NOTE | 2020-01-06 07:02 | NUR ---
INGOT WEIGHER NOTES PT IN BED RESTING. PT OPENS EYES. PT ON VENT, WITH RESPIRATIONS EVEN AND UNLABORED WITH NO S/S OF ACUTE DISTRESS OR SOB NOTED THROUGHOUT SHIFT. PT S/P 1 UNIT PRBC ON SHIFT, TOLERATED WELL. PT KEPT CLEAN, DRY, AND COMFORTABLE. NO S/S OF PAIN NOTED AT THIS TIME. PT NOTED WITH RFEMORAL CENTRAL LINE. SAFETY MEASURES IN PLACE WITH BED IN LOWEST LOCKED POSITION WITH SIDE RAILS UP X2. CALL LIGHT WITHIN REACH. WILL ENDORSE TO ONCOMING NURSE FOR CORA.
[2020-01-06] MEDS: BLOOD SUGAR DIAGNOSTIC 1 EACH STRIP IN SCH ×4 (07:20→21:59)
[2020-01-06] MEDS: INSULIN REGULAR, HUMAN 100 UNIT/ML 3 ML VIAL SQ PRN ×2 (07:21→14:43)
--- NOTE | 2020-01-06 07:30 | NUR ---
TELE/RN NOTE THE PATIENT IS RECEIVED IN BED. THE PATIENT IS ON VENT. TRACH AND TOLERATES THE SETTINGS WELL. THE PATIENT IS OBTUNDED. MULLEN CATH PRESENT AND NOTED CLEAR, YELLOW COLOR URINE. NO BLADDER DISTENSION NOTED. GT PRESENT AND NEPRO INFUSING AT 40ML/HR. NO ABDOMINAL DISTENSION NOTED. RIGHT FEMORAL TRIPLE LUMEN CATH PRESENT AND SALINE LOCKED. EXTERNAL TELE BOX READING IS SR. BED LOW AND LOCKED. SIDE RAILS UP X3. CALL LIGHT WITHIN REACH. WILL CONTINUE TO MONITOR.
[2020-01-06 08:23] LABS: BASOPHILS % (AUTO) 0.3 % (0.0-2.0); EOSINOPHILS % (AUTO) 0.2 % (0.0-6.0); HEMATOCRIT 28 % (39-51); HEMOGLOBIN 9.6 g/dL (13.5-17.5); LYMPHOCYTES # (AUTO) 0.4 /CMM (0.8-4.8); LYMPHOCYTES % (AUTO) 5.4 % (20.0-44.0); MEAN CORPUSCULAR HGB CONC 34 g/dl (31.0-36.0); MEAN CORPUSCULAR VOLUME 89 fL (80-96); MONOCYTES # (AUTO) 0.8 /CMM (0.1-1.30); MONOCYTES % (AUTO) 10.9 % (2.0-12.0); NEUTROPHILS # (AUTO) 6.4 /CMM (1.8-8.9); NEUTROPHILS % (AUTO) 83.2 % (43.0-81.0); RED BLOOD CELL COUNT(AUTO) 3.14 MIL/uL (4.5-6.0); WHITE BLOOD COUNT (AUTO) 7.7 K/uL (4.3-11.0)
[2020-01-06 08:34] LABS: BILIRUBIN,TOTAL 0.5 mg/dL (0.2-1.0); CALCIUM, SERUM 8.4 mg/dL (8.5-10.1); CREATININE 2.7 mg/dL (0.6-1.3); MAGNESIUM 1.9 mg/dL (1.8-2.4); PHOSPHORUS 1.9 mg/dL (2.5-4.9); TOTAL PROTEIN, SERUM 5.3 g/dL (6.4-8.2)
[2020-01-06 08:40] LABS: ALBUMIN 1.2 g/dL (3.4-5.0)
[2020-01-06 08:45] LABS: PLATELET COUNT (AUTO) 13 /CMM (150-450)
[2020-01-06] MEDS: LACTOBACILLUS RHAMNOSUS GG 1 EACH CAP.SPRINK GT SCH ×2 (09:18→17:38)
[2020-01-06] MEDS: LEVETIRACETAM SOL (5 ML) 100 MG/ML UDC GT SCH ×2 (09:18→22:05)
[2020-01-06] MEDS: CHLORHEXIDINE GLUCONATE 15 ML UDC MM SCH ×2 (09:19→17:29)
[2020-01-06] MEDS: VIT B CMPLX 3/FA/VIT C/BIOTIN 1 TAB TABLET GT SCH (09:19)
[2020-01-06] MEDS: ASCORBIC ACID 500 MG TABLET GT SCH (09:19)
[2020-01-06] MEDS: ZINC SULFATE 220 MG CAPSULE PO SCH (09:20)
[2020-01-06] MEDS: CARVEDILOL 6.25 MG TABLET PO SCH ×2 (09:20→22:05)
[2020-01-06] MEDS: HYDROGEL DRESSING 90 GM TUBE TP SCH ×2 (09:22→22:06)
[2020-01-06] MEDS: CLOTRIMAZOLE 1% 15 GM TUBE TP SCH ×2 (09:23→17:30)
[2020-01-06 10:20] LABS: BAND % (MANUAL) 36 % (0.0-5.0); LYMPHOCYTES % (MANUAL) 4 % (16-48); MYELOCYTES % 2 % (0-0); NEUTROPHILS % (MANUAL) 53 (42-76); REACTIVE LYMPHOCYTES 5 % (0-0)
[2020-01-06 12:44] LABS: BILIRUBIN,DIRECT 0.2 mg/dL (0.0-0.2)
--- NOTE | 2020-01-06 13:00 | NUR ---
RN NOTE CORKY VILLEGAS IS MADE AWARE OF ALL ABNORMAL LAB RESULTS INCLUDING REPORT FROM LAB STATING CRE BLOOD. NO NEW ORDERS PER COMMERCIAL APPRAISER.
[2020-01-06] MEDS ORDERED: NEUTRA PHOS 1 POWD.PACKET GT ONE (15:00)
[2020-01-06] MEDS: CEFTAZIDIME 1 G in IV D5W 50 ML IV SCH (15:05)
--- NOTE | 2020-01-06 18:17 | NUR ---
TELE/RN NOTE GLASS CURVATURE GAUGER NELLY IS MADE AWARE OF PATIENT HAVING TARRY BLACK STOOL X2 AND THAT THE PATIENT`S RESPONSIBLE CONSTITUTION PARTY NIECE WANTS TO TALK TO ATTENDINGS TO GET UPDATES.
--- NOTE | 2020-01-06 19:20 | NUR ---
TELE/RN PM OPENING NOTE REPORT RECIEVED FROM BEN AND ELIZABETH GARRIDO. PT IN BED. THE PATIENT IS ON VENT. TRACH TOLERATING THE SETTINGS IN NO APPARENT RESP DISTRESS. THE PATIENT IS OBTUNDED. MULLEN CATH PRESENT AND NOTED CLUDY, YELLOW URINE. NO BLADDER DISTENSION NOTED. ABD IS FIRM TO TOUCH WITH GENERALIZED EDEMA, EDEMA ALSO NOTED TO UPER EXTREMITIES BILATERALLY PITTING AND LOWER BILATERAL LOWER LEGS. GT PRESENT AND NEPRO INFUSING AT 40ML/HR. RESIDUAL FOUND TO BE LESS THEN 30. RIGHT FEMORAL TRIPLE LUMEN CATH PRESENT AND SALINE LOCKED. TELE READING ST. BED LOW AND LOCKED. SIDE RAILS UP X3. CALL LIGHT PLACED WITHIN REACH. WILL CONTINUE TO MONITOR.
--- NOTE | 2020-01-06 19:30 | NUR ---
PER REPORT FROM BEN GARRIDO AND ELIZABETH GARRIDO. DEX VILLEGAS DNP WANTED TWO UNITS OF PLATELETS TRANSFUSED. FOR PLT LESS THEN 20 AND POSSIBLE. ACTIVE BLEEDINGS FROM BLACK TARRY STOOLS. WILL FOLLOW UP WITH THE LAB. . Addendum: 01/06/20 at 1935 by KARIE WALTER RN CALLED LAB SPOKE WITH SURVEYOR ROD HELPER THEY RECIEVED THE ORDER. STATE THAT THEY HAVE TO ORDER PLATELETS FROM [employer] AND WILL PROB BE DELIVERED IN ABOUT 2 HOURS.
[2020-01-06] MEDS: COLISTIMETHATE SODIUM 75 MG in IV NS 0.9% 50 ML IV SCH (19:45)
[2020-01-06] MEDS: *INSULIN REGULAR(HUMULIN R)HUM 100 UNIT/ML VIAL SQ PRN (22:02)
[2020-01-06] MEDS: INSULIN GLARGINE, 100 UNIT/ML CARTRIDGE SQ SCH (22:03)
[2020-01-06] MEDS: PANTOPRAZOLE 40 MG VIAL IV SCH (22:04)
[2020-01-07] VITALS (9 sets, daily range): BP systolic 85–108; BP diastolic 46–60
[2020-01-07] MEDS ORDERED: PHYTONADIONE INJ 10 MG/1 ML AMPUL SQ ONE (00:48)
[2020-01-07] MEDS: IPRATROPIUM NEB FS 0.5 MG/2.5 ML AMPUL.NEB IH SCH ×4 (02:11→20:29)
[2020-01-07 02:46] LABS: BASOPHILS % (AUTO) 0.2 % (0.0-2.0); EOSINOPHILS % (AUTO) 0.1 % (0.0-6.0); HEMATOCRIT 26 % (39-51); HEMOGLOBIN 8.6 g/dL (13.5-17.5); LYMPHOCYTES # (AUTO) 0.1 /CMM (0.8-4.8); LYMPHOCYTES % (AUTO) 1.8 % (20.0-44.0); MEAN CORPUSCULAR HGB CONC 34 g/dl (31.0-36.0); MEAN CORPUSCULAR VOLUME 89 fL (80-96); MONOCYTES % (AUTO) 1.1 % (2.0-12.0); NEUTROPHILS # (AUTO) 3.7 /CMM (1.8-8.9); NEUTROPHILS % (AUTO) 96.8 % (43.0-81.0); WHITE BLOOD COUNT (AUTO) 3.8 K/uL (4.3-11.0)
--- NOTE | 2020-01-07 02:50 | NUR ---
new right lateral head hematoma; pics taken. site maked picture taken. will cont to monitor. at this time no significant vital sgn change. no alteration from baseline mentation. will cont to monitor.
[2020-01-07 02:58] LABS: PLATELET COUNT (AUTO) 37 /CMM (150-450)
[2020-01-07] MEDS: NEPRO 1,000 ML BOTTLE GT PRN (04:45)
[2020-01-07 06:04] LABS: BAND % (MANUAL) 20 % (0.0-5.0); LYMPHOCYTES % (MANUAL) 1 % (16-48); MONOCYTES % (MANUAL) 1 % (0-11.0)
[2020-01-07 06:05] LABS: NEUTROPHILS % (MANUAL) 78 (42-76)
[2020-01-07 06:32] LABS: BASOPHILS % (AUTO) 0.2 % (0.0-2.0); EOSINOPHILS % (AUTO) 0.1 % (0.0-6.0); HEMATOCRIT 25 % (39-51); HEMOGLOBIN 8.5 g/dL (13.5-17.5); LYMPHOCYTES # (AUTO) 0.2 /CMM (0.8-4.8); MEAN CORPUSCULAR HGB CONC 34 g/dl (31.0-36.0); MEAN CORPUSCULAR VOLUME 90 fL (80-96); MONOCYTES # (AUTO) 0.3 /CMM (0.1-1.30); MONOCYTES % (AUTO) 4.4 % (2.0-12.0); NEUTROPHILS # (AUTO) 7.3 /CMM (1.8-8.9); NEUTROPHILS % (AUTO) 93.3 % (43.0-81.0); WHITE BLOOD COUNT (AUTO) 7.9 K/uL (4.3-11.0)
[2020-01-07 06:48] LABS: BILIRUBIN,TOTAL 0.7 mg/dL (0.2-1.0); CALCIUM, SERUM 8.7 mg/dL (8.5-10.1); MAGNESIUM 1.7 mg/dL (1.8-2.4); PHOSPHORUS 2.3 mg/dL (2.5-4.9); POTASSIUM 3.4 mmol/L (3.5-5.1); TOTAL PROTEIN, SERUM 4.9 g/dL (6.4-8.2)
[2020-01-07] MEDS: COLISTIMETHATE SODIUM 75 MG in IV NS 0.9% 50 ML IV SCH ×2 (06:51→18:22)
[2020-01-07] MEDS: BLOOD SUGAR DIAGNOSTIC 1 EACH STRIP IN SCH ×4 (06:58→21:44)
[2020-01-07] MEDS: INSULIN REGULAR, HUMAN 100 UNIT/ML 3 ML VIAL SQ PRN ×3 (07:01→17:35)
[2020-01-07 07:13] LABS: ALBUMIN 1.2 g/dL (3.4-5.0)
[2020-01-07 07:59] LABS: C-REACTIVE PROTEIN 21.6 mg/dL (0.0-0.9)
[2020-01-07 08:10] LABS: PLATELET COUNT (AUTO) 31 /CMM (150-450)
[2020-01-07 08:20] LABS: D-DIMER 4.03 mg/L(FEU (0.17-0.50)
[2020-01-07] MEDS: LACTOBACILLUS RHAMNOSUS GG 1 EACH CAP.SPRINK GT SCH ×2 (08:51→17:15)
[2020-01-07] MEDS: PANTOPRAZOLE 40 MG VIAL IV SCH ×2 (08:52→21:26)
[2020-01-07] MEDS: ASCORBIC ACID 500 MG TABLET GT SCH (08:52)
[2020-01-07] MEDS: VIT B CMPLX 3/FA/VIT C/BIOTIN 1 TAB TABLET GT SCH (08:52)
[2020-01-07] MEDS: LEVETIRACETAM SOL (5 ML) 100 MG/ML UDC GT SCH ×2 (08:52→21:26)
[2020-01-07] MEDS: CHLORHEXIDINE GLUCONATE 15 ML UDC MM SCH ×2 (08:53→17:15)
[2020-01-07] MEDS: ZINC SULFATE 220 MG CAPSULE PO SCH (08:53)
[2020-01-07] MEDS: CLOTRIMAZOLE 1% 15 GM TUBE TP SCH ×2 (08:54→17:17)
[2020-01-07] MEDS: HYDROGEL DRESSING 90 GM TUBE TP SCH ×2 (08:54→21:40)
[2020-01-07] MEDS: CARVEDILOL 6.25 MG TABLET PO SCH ×2 (09:00→21:27)
--- NOTE | 2020-01-07 09:34 | NUR ---
MANAGER RESPIRATORY CARE NOTES Received patient in bed, and remains obtundent. On mechanical ventilation. Respiration even and easy. GTF intact and infusing well. Was endorsed by previous RN, that patient developed right lateral head lump. MD will be informed. Will continue to monitor for the rest of shift. Addendum: 01/07/20 at 0942 by ELIZABETH MENG RN MD informed of right lateral head lump with new orders for head CT w out contrast.
--- NOTE | 2020-01-07 11:48 | NUR ---
COVER SEAMER NOTES DR. VILLEGSA INFORMED OF LATEST MAGNESIUM, POTASSIUM AND PHOSPHORUS LEVELS, NO NEW ORDER. DR. STALEY INFORMED OF LATEST PLATELET VALUE OF 31, NO NEW ORDER.
[2020-01-07 16:40] LABS: APPEARANCE,URINE CLOUDY (CLEAR); BILIRUBIN,URINE NEGATIVE (NEGATIVE); BLOOD, URINE LARGE Ery/uL (NEGATIVE); COLOR,URINE YELLOW (YELLOW); KETONES,URINE TRACE (NEGATIVE); LEUKOCYTE ESTERASE ,URINE LARGE (NEGATIVE); NITRITE, URINE NEGATIVE (NEGATIVE); PH,URINE 5.5 (5.0-8.0); PROTEIN,URINE 100 mg/dl (NEGATIVE); UGLUCOSE NEGATIVE (NEGATIVE); UROBILINOGEN,URINE 0.2 EU/dL (0.2)
[2020-01-07 16:56] LABS: BACTERIA,URINE 2+ /HPF (None Seen); RBC,URINE 51-80 /HPF (0-2); SQUAMOUS EPITHELIAL CELL,UR Few /HPF (None Seen); WBC,URINE 81-100 /HPF (0-3); YEAST,URINE Moderate /HPF (None Seen)
--- NOTE | 2020-01-07 18:46 | NUR ---
SALES PROFESSIONAL NOTES Patient remains obtundent. Skin is warm and dry to touch. On mechanical ventilation. Lung sound clear, with no signs of respiratory distress. All due medications given as ordered with no side effects. All needs anticipated and provided to. On GTF Nepro @ 40ml/hr. Head of bed kept elevated for aspiration precaution. Kept safe and comfortable.
--- NOTE | 2020-01-07 19:15 | NUR ---
[facility] MANAGER NOTES RECEIVED ON BED OBTUNDED,VENT SETTINGS TOLERATED WELL,ON NEPRO FEEDING AT 40ML/HR RATE VIA GT TUBE,NOTED 10ML RESIDUAL VOLUME.MULLEN CATH IN PLACE DRAINING YELLOWISH OUTPUT.ISOLATION PRECAUTION FOR VRE BLOOD,URINE.ON SPECIALTY MATTRESS FOR WOUND MANAGEMENT.RIGHT FEMORAL CENTRAL LINE IN PLACE, INTACT AND PATENT.WILL CONTINUE TO MONITOR STATUS.
--- NOTE | 2020-01-07 19:48 | NUR ---
OTHER SALES SUPPORT WORKER NOTES SR-80 ON TELE MONITOR.
[2020-01-07] MEDS: INSULIN GLARGINE, 100 UNIT/ML CARTRIDGE SQ SCH (21:55)
[2020-01-07] MEDS: *INSULIN REGULAR(HUMULIN R)HUM 100 UNIT/ML VIAL SQ PRN (21:57)
--- NOTE | 2020-01-07 22:00 | NUR ---
MODELER NOTES ACCU-CHECK BLOOD SUGAR CHECK 254,COVERED WITH HUMULIN R 6 UNITS PER SLIDING SCALE,ALONG WITH LANTUS 10 UNITS Q HS,GIVEN SQ ON RIGHT DELTOID.GT FEEDING IN PROGRESS.
[2020-01-08] VITALS (7 sets, daily range): BP systolic 60–114; BP diastolic 25–66
[2020-01-08] MEDS: IPRATROPIUM NEB FS 0.5 MG/2.5 ML AMPUL.NEB IH SCH ×4 (01:45→19:55)
[2020-01-08] MEDS: NEPRO 1,000 ML BOTTLE GT PRN (05:11)
[2020-01-08] MEDS: COLISTIMETHATE SODIUM 75 MG in IV NS 0.9% 50 ML IV SCH (05:54)
[2020-01-08] MEDS: BLOOD SUGAR DIAGNOSTIC 1 EACH STRIP IN SCH ×4 (06:02→21:30)
[2020-01-08] MEDS: INSULIN REGULAR, HUMAN 100 UNIT/ML 3 ML VIAL SQ PRN ×3 (06:04→17:46)
--- NOTE | 2020-01-08 06:27 | NUR ---
EXHIBIT DESIGNER NOTES ON BED, REMAINS OBTUNDED, OPEN EYES.MORNING CARE RENDERED TOLERATED WELL.DRESSING CHANGE TO GT SIDE DONE,WITH SLIGHT BLEEDING NOTED.STILL WITH PITTING EDEMA NOTED.RIGHT GROIN CENTRAL LINE REMAINS PATENT.MULLEN DRAIN WELL.REPOSITION PER PROTOCOL.WITH MUCOID STOOL NOTED.WOUND CARE DONE.WILL CONTINUE TO MONITOR STATUS,FULL CODE.
[2020-01-08 07:00] LABS: CALCIUM, SERUM 8.8 mg/dL (8.5-10.1); POTASSIUM 3.6 mmol/L (3.5-5.1)
--- NOTE | 2020-01-08 08:00 | NUR ---
ROSE GRADING SUPERVISOR OPENING NOTES Received Patient resting in bed. Obtunded. VS stable with no acute distress. Breathing even and unlabored on trachea and vent. No signs and symptoms of pain. Telemonitor in place and patent reading SR with HR-63. Gtube in place and patent with Nephro infusing at 40ml/hr. Right Femoral PICC Line intact, patent and flushing well. Bush Cath in place and patent. Safety precautions in place. Bed locked and set to lowest position with side rails x 3 up. All needs rendered at this time. Call light within reach. Will continue to monitor.
[2020-01-08] MEDS: LEVETIRACETAM SOL (5 ML) 100 MG/ML UDC GT SCH ×2 (08:31→21:00)
[2020-01-08] MEDS: VIT B CMPLX 3/FA/VIT C/BIOTIN 1 TAB TABLET GT SCH (08:31)
[2020-01-08] MEDS: ASCORBIC ACID 500 MG TABLET GT SCH (08:31)
[2020-01-08] MEDS: LACTOBACILLUS RHAMNOSUS GG 1 EACH CAP.SPRINK GT SCH ×2 (08:31→16:22)
[2020-01-08] MEDS: PANTOPRAZOLE 40 MG VIAL IV SCH (08:31)
[2020-01-08] MEDS: CHLORHEXIDINE GLUCONATE 15 ML UDC MM SCH ×2 (08:32→16:22)
[2020-01-08 08:34] LABS: D-DIMER 1.95 mg/L(FEU (0.17-0.50)
[2020-01-08] MEDS: ZINC SULFATE 220 MG CAPSULE PO SCH (08:34)
[2020-01-08] MEDS: CARVEDILOL 6.25 MG TABLET PO SCH ×2 (08:34→21:00)
[2020-01-08] MEDS: CLOTRIMAZOLE 1% 15 GM TUBE TP SCH ×2 (08:41→16:23)
[2020-01-08] MEDS: HYDROGEL DRESSING 90 GM TUBE TP SCH ×2 (08:43→21:03)
--- NOTE | 2020-01-08 18:38 | NUR ---
FACTORY WORKER NOTES Noted Gtube site redness and bleeding. Skin assessment photo taken and placed in chart. Wound consult ordered. notified.
--- NOTE | 2020-01-08 18:41 | NUR ---
CRANKSHAFT GRINDER OPENING NOTES Received Patient resting in bed. Obtunded. VS stable with no acute distress. Breathing even and unlabored on trachea and vent. No signs and symptoms of pain. Telemonitor in place and patent reading SR with occasional PVCs and HR-91. Gtube in place and patent with Nephro infusing at 40ml/hr. Right Femoral PICC Line intact, patent and flushing well. Bush Cath in place and patent. Safety precautions in place. Bed locked and set to lowest position with side rails x 3 up. All needs rendered at this time. Call light within reach. Will endorse plan of care to oncoming shift.
--- NOTE | 2020-01-08 19:30 | NUR ---
DOCUMENTATION LIAISON NOTES RECEIVED ON BED OBTUNDED,OPEN EYES TO DAILY CARE,ON BEAR HUGGER,PER REPORT ITS HARD TO GET BODY TEMPERATURE.ON TRACH TO VENT,SETTINGS TOLERATED WELL.GT FEEDING IN PROGRESS AT 40ML/HR RATE,GT STILL WITH SLIGHT BLEEDING,DRESSING CHANGE DONE.MULLEN CATH IN PLACE DRAINING MINIMAL OUTPUT.STILL WITH GENERALIZED EDEMA.HOB ELEVATED.WOUNDS DRESSING INTACT AND DRY.ISOLATION PRECAUTION FOR VRE URINE AND BLOOD.REPOSITION PER PROTOCOL.WILL CONTINUE TO MONITOR STATUS.
--- NOTE | 2020-01-08 20:00 | NUR ---
SUSTAINABLE COMMUNITIES DESIGNER NOTES BLOOD PRESSURE ON THE LOW SIDE 84/46,PULSE-90,HOSPITALIST CLARIBEL MADE AWARE,WITH ORDER TO GIVE ONE TIME BOLUS OF NS 500ML,NOTED AND CARRIED OUT.
[2020-01-08] MEDS ORDERED: PANTOPRAZOLE 40 MG/PACK PACK GT SCH (21:00)
[2020-01-08] MEDS ORDERED: COLISTIMETHATE SODIUM 75 MG in IV NS 0.9% 50 ML IV SCH (21:00)
[2020-01-08] MEDS ORDERED: IV NS 0.9% 500 ML IV ONE (21:00)
--- NOTE | 2020-01-08 21:00 | NUR ---
DOLL EYE SETTER NOTES DUE MEDS ADMINISTERED VIA GT ORDERED.GT INTACT AND PATENT.NO RESIDUAL VOLUME NOTED.
--- NOTE | 2020-01-08 21:30 | NUR ---
EMPLOYMENT TRAINER NOTES ACCU-CHECK BLOOD SUGAR CHECK 170,COVERED WITH HUMULIN R 3 UNITS PER SLIDING SCALE,ALONG WITH LANTUS 10 UNITS SCHEDULED,ADMINISTERED ON LEFT THIGH.GT FEEDING IN PROGRESS.
[2020-01-08] MEDS: INSULIN GLARGINE, 100 UNIT/ML CARTRIDGE SQ SCH (21:39)
[2020-01-08] MEDS: *INSULIN REGULAR(HUMULIN R)HUM 100 UNIT/ML VIAL SQ PRN (21:41)
--- NOTE | 2020-01-08 23:10 | NUR ---
MARKET RESEARCH INTERVIEWER NOTES BLOOD PRESSURE RE CHECK POST NS 500ML BOLUS IS 70/27,PULSE 60,RR-26,O2 SAT 91%.SUCTION ORAL MUCUS AND VIA TRACH.
[2020-01-08 23:14] LABS: MEAN CORPUSCULAR VOLUME 91 fL (80-96)
--- NOTE | 2020-01-08 23:20 | NUR ---
MEDICAL ANTHROPOLOGY DIRECTOR NOTES HOSPITALIST IS ON THE UNIT,MADE AWARE OF THE BLOOD PRESSURE POST NS BOLUS,WITH ORDER TO TRANSFER PATIENT TO ICU.
[2020-01-08] MEDS ORDERED: ACETAMINOPHEN 325 MG TABLET PO ONE (23:30)
--- NOTE | 2020-01-08 23:30 | NUR ---
RN/ICU-RECEIVED PT. FROM TELE 3WEST BY BED PER ACLS PROTOCOL FOR HYPOTENSION.ACCOMPANIED BY RT AND 3 [facility] STAFF MEMBERS AND RTS.. PT. UNRESPONSIVE TO ANY FORM OF STIMULI , W/ TRACH IN PLACE ON CONTINUOUS BAGGING BY RT AND IMMEDIATELY HOOKED TO THE VENTILATOR. HOOKED UP TO THE BEDSIDE GRADE FOREMAN., ABLE TO FEEL WEAK PALPABLE PULSE. 40;S BP-91/54. UNABLE TO GET ANY BEDSIDE MONITOR, ATTEMPTED TO HOOKED UP PT. WELL TO THE CRASH CART, AND W/ GREAT DIFFICULTY IN GETTING CORRECT READING. CORKY RHODES HERE TO ASSESS PT. AND GIVE ORDERS.
--- NOTE | 2020-01-08 23:30 | NUR ---
CHILD CARE COOK NOTES RT WAS CALLED TO ASSIST TO TRANSFER PATIENT TO ICU
--- NOTE | 2020-01-08 23:35 | NUR ---
FRONT OFFICE SECRETARY NOTES REPORT GIVEN TO [facility] INFORMATION CLERK
--- NOTE | 2020-01-08 23:40 | NUR ---
CABLE PULLER NOTES PATIENT TRANSFERRED TO ICU BY BED VIA ACLS PROTOCOL, ACCOMPANIED BY RN AND RT.
[2020-01-08] MEDS ORDERED: ATROPINE SULFATE 1 MG/10 ML DISP.SYRIN ONE (23:55)
[2020-01-08] MEDS ORDERED: DOPamine 400MG/D5W 250ML RTU 250 ML ONE (23:56)
[2020-01-09] VITALS (10 sets, daily range): BP systolic 0–136; BP diastolic 0–92
[2020-01-09] MEDS ORDERED: ATROPINE SULFATE 1 MG/10 ML DISP.SYRIN IV ONE
[2020-01-09] MEDS ORDERED: NOREPINEPHRINE 8 MG in IV NS 0.9% 242 ML IV PRN ×2
[2020-01-09] MEDS ORDERED: DOPamine 400 MG/D5W 250 ML RTU BAG IV ONE
--- NOTE | 2020-01-09 00:04 | NUR ---
RN/ICU-PT. CRITICALLY ILL ON THE VENT PER TRACHE. NOW EKG ASYSTOLE X2 LEADS, PULSELESS, ACLS INITIATED,CODE BLUE WAS CALLED. SEE CODE BLUE RECORDS FOR DETAILS.
--- NOTE | 2020-01-09 00:20 | NUR ---
RN/ICU-STAT ABGS DONE AND RELAYED TO CORKY RHODES W/ ORDERS NOTED.
--- NOTE | 2020-01-09 00:28 | NUR ---
RN/ICU-PT. REMAINS CRITICAL, EKG ASYSTOLE X2 LEADS, PULSELESS, ACLS INITIATED W/ CODE TEAM, CALLED HARLE[facility] WAS CALLED. CORKY RHODES IN ATTENDANCE.
--- NOTE | 2020-01-09 00:37 | NUR ---
RN/ICU- SPOKE TO THE NIECE OMER BY PHONE , BENINESE SPEAKING W/ LIMITED CZECH, INTERPRETED BY HEMA VENCES. ALSO CORKY RHODES SPOKE TO SAME BY PHONE INTERPRETED BY SAME, EXPLAINED THE PT. CONDITION AND SAME FAMILY MEMBER WHO IS THE NEXT OF KIN FINALLY DECIDED TO MAKE THE PT. A "DO NOT RESUSCITATE STATUS."
--- NOTE | 2020-01-09 00:38 | NUR ---
RN/ICU- NOW PT. IS A "DNR" STATUS. PT. REMAINS ASYSTOLE X 2 LEADS, PULSELESS, DNP CARMELO IN ATTENDANCE AND PRONOUNCED PT. .
[2020-01-09 00:45] LABS: ABG BASE EXCESS -19.8 mmol/L; ABG OXYGEN SATURATION 67.9 % (92.0-98.5); ABG PCO2 68.8 mmHg (35.0-45.0); ABG PH 6.879 (7.350-7.450); ABG PO2 58.4 mmHg (75.0-100.0); AaDO2 585.8 mmHg; COHb 0.3 % (0.5-1.5); MetHb 0.5 % (0.0-1.5); O2Hb 67.4 % (94.0-97.0); PEEP,BG 5 cm H2O; SITE, ABG Right Radial; VENT MODE, BG AC 100%; VT, ABG 500 mL
[2020-01-09] MEDS ORDERED: IV NS 0.9% 500 ML IV PRN (01:00)
[2020-01-09] MEDS ORDERED: IV NS 0.9% 500 ML IV ONE ×2 (01:00)
--- NOTE | 2020-01-09 01:11 | NUR ---
RN/ICU- [facility] NOTIFIED. PT. DECLINED PT. AN ORGAN DONOR. SPOKE TO DENITA Meneses/ CASE NO.[id number]
--- NOTE | 2020-01-09 01:45 | NUR ---
RN/ICU- MADISON TELLO HERE TO SEE PT.
--- NOTE | 2020-01-09 02:00 | NUR ---
RN/ICU-POST MORTEM CARE DONE.
--- NOTE | 2020-01-09 02:30 | NUR ---
RN/ICU- PT. BODY WILL BE SENT TO [facility] FOR NOW. OMER WILL CONTACT [facility] TODAY AND WILL CALL [facility] NURSING UROLOGY PHYSICIAN ASSISTANT FOR INSTRUCTIONS.
[2020-01-09 02:39] LABS: HEMATOCRIT 22 % (39-51); HEMOGLOBIN 7.2 g/dL (13.5-17.5); MEAN CORPUSCULAR HGB CONC 33 g/dl (31.0-36.0); RED BLOOD CELL COUNT(AUTO) 2.39 MIL/uL (4.5-6.0); WHITE BLOOD COUNT (AUTO) 6.7 K/uL (4.3-11.0)
[2020-01-09 02:40] LABS: EOSINOPHILS % (AUTO) 0.6 % (0.0-6.0); LYMPHOCYTES % (AUTO) 8.4 % (20.0-44.0); MONOCYTES % (AUTO) 6.8 % (2.0-12.0); NEUTROPHILS % (AUTO) 83.7 % (43.0-81.0); PLATELET COUNT (AUTO) 11 /CMM (150-450)
[2020-01-09 02:41] LABS: BASOPHILS % (AUTO) 0.5 % (0.0-2.0); LYMPHOCYTES # (AUTO) 0.6 /CMM (0.8-4.8); MONOCYTES # (AUTO) 0.5 /CMM (0.1-1.30); NEUTROPHILS # (AUTO) 5.6 /CMM (1.8-8.9)
[2020-01-09 02:42] LABS: BAND % (MANUAL) 30 % (0.0-5.0); LYMPHOCYTES % (MANUAL) 6 % (16-48); MONOCYTES % (MANUAL) 6 % (0-11.0); NEUTROPHILS % (MANUAL) 58 (42-76)
[2020-01-09] MEDS ORDERED: EPINEPHRINE (1:10,000) SYRINGE 1 MG/10 ML DISP.SYRIN IVP ONE (03:59)
[2020-01-09] MEDS ORDERED: SODIUM BICARBONATE SYR 50 MEQ/50 ML DISP.SYRIN IV ONE (03:59)
--- NOTE | 2020-01-09 04:00 | NUR ---
RN/ICU-TO [facility] FOR NOW. [facility] OMER DOES NOT REMEMBER THE NAME OF THE HOME. WILL CALL TODAY MORNING FOR THE INFORMATION.L
== END 2020-01-09 04:00 | disposition expired ==
LOC: ER 06:11 → ICU 08:07 → TELE 12-25 18:23 → ICU 01-08 23:36
PROVIDERS: ADMIT Student in an Organized Health Care Education/Training Program; ATTEND Internal Medicine
PROC: 5A1955Z Respiratory Ventilation, Greater than 96 Consecutive Hours (ICD-10-PCS; principal; 2019-12-16)
PROC: 5A12012 Performance of Cardiac Output, Single, Manual (ICD-10-PCS; 2019-12-17)
PROC: 06HM33Z Insertion of Infusion Device into Right Femoral Vein, Percutaneous Approach (ICD-10-PCS; 2019-12-17)
PROC: B54BZZA Ultrasonography of Right Lower Extremity Veins, Guidance (ICD-10-PCS; 2019-12-17)
PROC: 30233N1 Transfusion of Nonautologous Red Blood Cells into Peripheral Vein, Percutaneous Approach (ICD-10-PCS; 2019-12-17)
PROC: 5A2204Z Restoration of Cardiac Rhythm, Single (ICD-10-PCS; 2019-12-17)
PROC: 0S993ZZ Drainage of Right Hip Joint, Percutaneous Approach (ICD-10-PCS; 2019-12-29)
PROC: 30233R1 Transfusion of Nonautologous Platelets into Peripheral Vein, Percutaneous Approach (ICD-10-PCS; 2020-01-06)
DX: T80.211A Bloodstream infection due to central venous catheter, initial encounter (principal); A41.59 Other Gram-negative sepsis; I21.A1 Myocardial infarction type 2; L89.323 Pressure ulcer of left buttock, stage 3; R65.21 Severe sepsis with septic shock; N17.0 Acute kidney failure with tubular necrosis; G93.41 Metabolic encephalopathy; R53.2 Functional quadriplegia; E43 Unspecified severe protein-calorie malnutrition; J96.20 Acute and chronic respiratory failure, unspecified whether with hypoxia or hypercapnia; K72.00 Acute and subacute hepatic failure without coma; J18.9 Pneumonia, unspecified organism; K85.90 Acute pancreatitis without necrosis or infection, unspecified; L89.154 Pressure ulcer of sacral region, stage 4; D61.818 Other pancytopenia; E87.2 Acidosis; E87.0 Hyperosmolality and hypernatremia; I47.1 Supraventricular tachycardia; Z16.24 Resistance to multiple antibiotics; Z99.11 Dependence on respirator [ventilator] status; L97.428 Non-pressure chronic ulcer of left heel and midfoot with other specified severity; J81.1 Chronic pulmonary edema; J90 Pleural effusion, not elsewhere classified; J98.11 Atelectasis; B37.49 Other urogenital candidiasis; M00.851 Arthritis due to other bacteria, right hip; R18.8 Other ascites; K55.9 Vascular disorder of intestine, unspecified; Z16.21 Resistance to vancomycin; D68.9 Coagulation defect, unspecified; B49 Unspecified mycosis; I46.9 Cardiac arrest, cause unspecified; E83.51 Hypocalcemia; E87.5 Hyperkalemia; I25.10 Atherosclerotic heart disease of native coronary artery without angina pectoris; G40.909 Epilepsy, unspecified, not intractable, without status epilepticus; N18.9 Chronic kidney disease, unspecified; E88.09 Other disorders of plasma-protein metabolism, not elsewhere classified; Z93.1 Gastrostomy status; Z86.73 Personal history of transient ischemic attack (TIA), and cerebral infarction without residual deficits; Z79.4 Long term (current) use of insulin; Z68.30 Body mass index [BMI] 30.0-30.9, adult; D47.3 Essential (hemorrhagic) thrombocythemia; Z87.820 Personal history of traumatic brain injury; M24.542 Contracture, left hand; M24.541 Contracture, right hand; M24.574 Contracture, right foot; M24.575 Contracture, left foot; Z87.440 Personal history of urinary (tract) infections; Z87.01 Personal history of pneumonia (recurrent); E11.621 Type 2 diabetes mellitus with foot ulcer; I16.0 Hypertensive urgency; R13.10 Dysphagia, unspecified; S80.211A Abrasion, right knee, initial encounter; X58.XXXA Exposure to other specified factors, initial encounter; Y93.9 Activity, unspecified; Y92.129 Unspecified place in nursing home as the place of occurrence of the external cause; E11.65 Type 2 diabetes mellitus with hyperglycemia; R23.4 Changes in skin texture; N40.1 Benign prostatic hyperplasia with lower urinary tract symptoms; F41.9 Anxiety disorder, unspecified; E87.6 Hypokalemia; D73.4 Cyst of spleen; N30.90 Cystitis, unspecified without hematuria; K52.9 Noninfective gastroenteritis and colitis, unspecified; B96.4 Proteus (mirabilis) (morganii) as the cause of diseases classified elsewhere; M16.11 Unilateral primary osteoarthritis, right hip; N20.0 Calculus of kidney; Y84.8 Other medical procedures as the cause of abnormal reaction of the patient, or of later complication, without mention of misadventure at the time of the procedure; Y92.128 Other place in nursing home as the place of occurrence of the external cause; E11.22 Type 2 diabetes mellitus with diabetic chronic kidney disease; Z66 Do not resuscitate
CPT/HCPCS: 31720; 36415; 36600; 70450-TC; 71045-TC; 71250-TC; 71260-TC; 75989-TC; 76705-TC; 80048-TC; 80053-TC; 80061-TC; 80074; 80076-TC; 80150; 81000-TC; 82140-TC; 82247-TC; 82248-TC; 82272-TC; 82533; 82550-TC; 82570-TC; 82803-TC; 82962-TC; 83540-TC; 83605-TC; 83690-TC; 83735-TC; 83880; 83970; 84100-TC; 84132-TC; 84153-TC; 84154-TC; 84155; 84155-TC; 84165; 84300-TC; 84443-TC; 84484-TC; 85025-TC; 85027-TC; 85378-TC; 85385-TC; 85396; 85610-TC; 85730-TC; 86140-TC; 86850-TC; 86921-TC; 87040-TC; 87045-TC; 87070-TC; 87081-TC; 87086-TC; 87186-TC; 87806; 88108-TC; 88305-TC; 89051-TC; 92950-TC; 93307-TC; 94002-TC; 94003-TC; 94640-TC; 94760-TC; 94762-TC; 94799-TC; 99082-TC; A4216; A4623; A6248; A6253; A6403; A7526; C1751; C9113; G0378; J0153; J0171; J0278; J0360; J0461; J0610; J0696; J0713; J0770; J1265; J1580; J1610; J1644; J1720; J1815; J1940; J1953; J2020; J2060; J2185; J2270; J2370; J2405; J2543; J3260; J3370; J3430; J3475; J3480; J3490; J7030; J7040; J7042; J7050; J7060; J7070; P9016-BL; P9034-BL; Q9963; Q9967; U0003-CS